=== PATIENT | female | born 1960 | race Caucasian/White ===

== ENCOUNTER → 2019-08-13 | Outpatient (REF) | payer MEDICARE, MEDICAID ==
[~2019-08-13] MED LIST: ACET250T2 PO; ALPR0.25 PO; AMBI10TA; AMBI10TA PO; ASCO500T PO; ASPI81CH49 PO; ASPI81TA26 PO; ATIV1TAB7 PO; ATOR1TAB21 PO; AVEL1TAB3 PO; BABY81CH; BENZ-52 PO; BUDE150T; CALCCHW12; CLOZ100T PO; CLOZ100T2 PO; CLOZ100T45; CLOZ200T; COGENTIN PO; COLA100C2; DEPA250T2 PO; DEPA500T2 PO; DIPH2.5T14 PO; DITR5TAB PO; DOCU100T8 PO; DOCU10CA PO; DRIS50003 PO; FLUP10TA PO; FLUP25VL IM; FLUT11IN INH; HALDOL PO; HALO5TA PO; HYDR-3363 PO; IPRA0.00 INH; KLON0.5T; LAMO100T PO; LEVA1TAB2 PO; LISI-542 PO; LOPR1TAB6 PO; MELO7.5S PO; META28PO PO; METF500T13 PO; METH-1022 PO; METH5TAB76 PO; METO1TAB7 PO; METO50TA7 PO; MINI1CAP PO; MIRA3350 PO; NAPR-885 PO; NATU400T PO; OXYB5TAB10 PO; PANT20TA2 PO; PANT40TA3 PO; PRAV40TA2 PO; PRAZ1CAP PO; PRAZ2CAP PO; PRIL20CA; PRIS100T PO; PROP10TAB; REGUPOW PO; SIMV40TA2; TRAZ100T; TRAZ1TAB10 PO; TYLE650T25 PO; VENL75CA2 PO; VITAMIN C PO; VITATAB21 PO; XANA0.25 PO; ZYPR15TA PO; [UNRECOGNIZED DRUG - CODE] TOP
[2019-08-13 12:53] LABS: HEMATOCRIT 37.1 % (36.0-47.0); HEMOGLOBIN 11.8 g/dl (12.0-15.5); LYMPH # 1.3 10^3/uL (1.5-5.0); LYMPH % 20.4 % (24.0-44.0); MEAN CORPUSCULAR HEMOGLOBIN 29.1 pg (27.0-33.0); MEAN CORPUSCULAR HGB CONC 31.8 g/dl (32.0-36.5); MEAN CORPUSCULAR VOLUME 91.6 fl (80.0-96.0); MONO # 0.4 10^3/uL (0.0-0.8); MONO % 6.7 % (0.0-5.0); NEUTROPHILS # 4.7 10^3/uL (1.5-8.5); NEUTROPHILS % 72.6 % (36.0-66.0); PLATELET COUNT, AUTOMATED 238 10^3/uL (150-450); RED BLOOD COUNT 4.05 10^6/uL (4.00-5.40); WHITE BLOOD COUNT 6.4 10^3/uL (4.0-10.0)
[2019-08-17 10:46] LABS: CLOZAPINE 1 276 ng/mL (350-650); CLOZAPINE 2 140 ng/mL (Not Estab.); CLOZAPINE 3 416 ng/mL (.)
== END ==
LOC: M LABDRAWC 12:00 → M LABDRAW1 12:00
PROVIDERS: ATTEND Registered Nurse
DX: F25.1 Schizoaffective disorder, depressive type (principal)

== ENCOUNTER → 2019-09-01 | Outpatient (REF) | payer MEDICARE, MEDICAID ==
[2019-09-01 12:56] LABS: HEMOGLOBIN 11.6 g/dl (12.0-15.5); LYMPH # 1.6 10^3/uL (1.5-5.0); LYMPH % 24.6 % (24.0-44.0); MEAN CORPUSCULAR HEMOGLOBIN 28.4 pg (27.0-33.0); MEAN CORPUSCULAR HGB CONC 31.4 g/dl (32.0-36.5); MEAN CORPUSCULAR VOLUME 90.7 fl (80.0-96.0); MONO # 0.5 10^3/uL (0.0-0.8); MONO % 8.5 % (0.0-5.0); NEUTROPHILS # 4.2 10^3/uL (1.5-8.5); NEUTROPHILS % 66.4 % (36.0-66.0); PLATELET COUNT, AUTOMATED 227 10^3/uL (150-450); RED BLOOD COUNT 4.08 10^6/uL (4.00-5.40); WHITE BLOOD COUNT 6.3 10^3/uL (4.0-10.0)
[2019-09-03 08:06] LABS: CLOZAPINE 1 452 ng/mL (350-650); CLOZAPINE 2 213 ng/mL (Not Estab.); CLOZAPINE 3 665 ng/mL (.)
== END ==
LOC: M LABDRAWC 11:38
PROVIDERS: ATTEND Registered Nurse
DX: F25.1 Schizoaffective disorder, depressive type (principal); Z51.81 Encounter for therapeutic drug level monitoring; Z13.9 Encounter for screening, unspecified

== ENCOUNTER → 2019-09-22 | Outpatient (REF) | payer MEDICARE, MEDICAID ==
[2019-09-22 19:13] LABS: HEMATOCRIT 37.5 % (36.0-47.0); LYMPH % 29.4 % (24.0-44.0); MEAN CORPUSCULAR VOLUME 90.6 fl (80.0-96.0); MONO # 0.5 10^3/uL (0.0-0.8); MONO % 7.5 % (0.0-5.0); NEUTROPHILS # 4.2 10^3/uL (1.5-8.5); NEUTROPHILS % 62.8 % (36.0-66.0); PLATELET COUNT, AUTOMATED 252 10^3/uL (150-450); RED BLOOD COUNT 4.14 10^6/uL (4.00-5.40); WHITE BLOOD COUNT 6.6 10^3/uL (4.0-10.0)
== END ==
LOC: M LABDRAWC 16:10
PROVIDERS: ATTEND Registered Nurse
DX: Z13.9 Encounter for screening, unspecified (principal); Z51.81 Encounter for therapeutic drug level monitoring; F25.1 Schizoaffective disorder, depressive type

== ENCOUNTER → 2019-10-07 | Outpatient (REF) | payer MEDICARE, MEDICAID ==
[~2019-10-07] MED LIST changes: -LAMO100T PO; +LAMO100T3 PO
[2019-10-07 12:34] LABS: HEMATOCRIT 37.8 % (36.0-47.0); HEMOGLOBIN 12.1 g/dl (12.0-15.5); LYMPH # 1.9 10^3/uL (1.5-5.0); LYMPH % 27.6 % (24.0-44.0); MEAN CORPUSCULAR HEMOGLOBIN 28.7 pg (27.0-33.0); MEAN CORPUSCULAR VOLUME 89.8 fl (80.0-96.0); MONO # 0.5 10^3/uL (0.0-0.8); MONO % 7.3 % (0.0-5.0); NEUTROPHILS # 4.4 10^3/uL (1.5-8.5); NEUTROPHILS % 64.8 % (36.0-66.0); PLATELET COUNT, AUTOMATED 233 10^3/uL (150-450); RED BLOOD COUNT 4.21 10^6/uL (4.00-5.40); WHITE BLOOD COUNT 6.9 10^3/uL (4.0-10.0)
[2019-10-09 10:36] LABS: CLOZAPINE 1 305 ng/mL (350-650); CLOZAPINE 2 153 ng/mL (Not Estab.); CLOZAPINE 3 458 ng/mL (.)
== END ==
LOC: M LABDRAWC 11:40
PROVIDERS: ATTEND Registered Nurse
DX: F25.1 Schizoaffective disorder, depressive type (principal)

== ENCOUNTER → 2019-10-21 | Outpatient (REF) | payer MEDICARE, MEDICAID ==
[2019-10-21 16:45] LABS: HEMATOCRIT 39.8 % (36.0-47.0); HEMOGLOBIN 12.6 g/dl (12.0-15.5); LYMPH # 1.7 10^3/uL (1.5-5.0); LYMPH % 25.9 % (24.0-44.0); MEAN CORPUSCULAR HEMOGLOBIN 28.4 pg (27.0-33.0); MEAN CORPUSCULAR HGB CONC 31.7 g/dl (32.0-36.5); MEAN CORPUSCULAR VOLUME 89.6 fl (80.0-96.0); MONO # 0.5 10^3/uL (0.0-0.8); MONO % 7.3 % (0.0-5.0); NEUTROPHILS # 4.4 10^3/uL (1.5-8.5); NEUTROPHILS % 66.6 % (36.0-66.0); PLATELET COUNT, AUTOMATED 232 10^3/uL (150-450); RED BLOOD COUNT 4.44 10^6/uL (4.00-5.40); WHITE BLOOD COUNT 6.6 10^3/uL (4.0-10.0)
== END ==
LOC: M LABDRAWC 16:06
PROVIDERS: ATTEND Registered Nurse
DX: F25.1 Schizoaffective disorder, depressive type (principal)

== ENCOUNTER 2019-10-24 14:31 | Emergency (ER) | payer MEDICARE, MEDICAID ==
[~2019-10-24] VITALS: Ht 165.1 cm; Wt 109.5 kg
[2019-10-24] MEDS ORDERED: DICL1GEL3 TOP (14:59)
[2019-10-24] MEDS ORDERED: LIDO1CRE2 TOP (14:59)
[2019-10-24] MEDS ORDERED: LACT10SO29 PO (14:59)
[2019-10-24] MEDS ORDERED: HALO5TA PO (15:10)
[2019-10-24] MEDS ORDERED: GABA-845 PO (15:10)
[2019-10-24] MEDS ORDERED: ACET1TAB55 PO (15:10)
[2019-10-24] MEDS ORDERED: ZOLO100T PO (15:26)
[2019-10-24] MEDS ORDERED: SYNT25TA PO (15:26)
[2019-10-24] MEDS ORDERED: ATIV1TAB10 PO (15:26)
[2019-10-24] MEDS ORDERED: ZOLP5TAB PO (15:26)
[2019-10-24] MEDS ORDERED: METF500T13 PO (15:26)
[2019-10-24] MEDS ORDERED: MELO15TA28 PO (15:26)
[2019-10-24] MEDS ORDERED: LISI-542 PO (15:26)
[2019-10-24] MEDS ORDERED: TRIH2TAB3 PO (15:26)
[2019-10-24] MEDS ORDERED: GABAPENTIN 400 MG CAP PO ONE (15:45)
[2019-10-24] MEDS ORDERED: NS 500 ML IV ONE (15:45)
[2019-10-24 16:30] VITALS: BP 179/81
[2019-10-24 16:38] LABS: BASO % 0.1 % (0.0-1.0); HEMATOCRIT 35.4 % (36.0-47.0); HEMOGLOBIN 11.6 g/dl (12.0-15.5); LYMPH % 20.5 % (24.0-44.0); MEAN CORPUSCULAR HEMOGLOBIN 28.5 pg (27.0-33.0); MEAN CORPUSCULAR HGB CONC 32.8 g/dl (32.0-36.5); MONO # 0.7 10^3/uL (0.0-0.8); NEUTROPHILS # 7.2 10^3/uL (1.5-8.5); NEUTROPHILS % 72.1 % (36.0-66.0); PLATELET COUNT, AUTOMATED 210 10^3/uL (150-450); RED BLOOD COUNT 4.07 10^6/uL (4.00-5.40); WHITE BLOOD COUNT 9.9 10^3/uL (4.0-10.0)
[2019-10-24 16:52] LABS: INR 0.93; PROTHROMBIN TIME 12.2 SECONDS (11.8-14.0)
[2019-10-24 16:53] LABS: PARTIAL THROMBOPLASTIN TIME 31.8 SECONDS (25.0-38.4)
[2019-10-24 17:12] LABS: ALBUMIN 3.4 GM/DL (3.2-5.2); ALT/SGPT 27 U/L (12-78); BILIRUBIN,DIRECT 0.1 MG/DL (0.0-0.2); BILIRUBIN,TOTAL 0.3 MG/DL (0.2-1.0); BLOOD UREA NITROGEN 27 MG/DL (7-18); CARBON DIOXIDE LEVEL 27 MEQ/L (21-32); CHLORIDE LEVEL 97 MEQ/L (98-107); CK-MB VALUE MASS 8.3 NG/ML (<3.6); CPK CREATINE PHOSPHOKINASE 293 U/L (26-192); CREATININE FOR GFR 0.91 MG/DL (0.55-1.30); GLOMERULAR FILTRATION RATE > 60.0 (>51); GLUCOSE, FASTING 77 MG/DL (70-100); MB/CK RELATIVE INDEX 2.83 (< OR =4); POTASSIUM SERUM 4.2 MEQ/L (3.5-5.1); SODIUM LEVEL 133 MEQ/L (136-145); TOTAL PROTEIN 6.5 GM/DL (6.4-8.2); TROPONIN I < 0.02 NG/ML (< 0.10)
--- NOTE | 2019-10-24 19:09 | ECGEPIP ---
[facility] - ED Test Date: 2019-10-24 Pat Name: JUAN KELSEY Department: Room: - Gender: Female Manager Customs: gibran : 1960 Requested By: AMANDA Linn Order Number: [id number] Reading MD: Louis Vora Measurements Intervals [place] Rate: 85 P: 56 TX: 152 QRS: 2 QRSD: 117 T: 30 QT: 369 QTc: 441 Interpretive Statements SINUS RHYTHM LOW QRS VOLTAGE IN PRECORDIAL LEADS INCOMPLETE RIGHT BUNDLE BRANCH BLOCK Nonspecific T wave abnormality Similar to tracing done 09-12-16 Electronically Signed on 10-24-2019 19:09:18 EST by Louis Vora
--- NOTE | 2019-10-25 10:48 | REP ---
REASON: Pain and swelling bilaterally. TECHNIQUE: Multiple ultrasonographic images of the deep venous structures of the bilateral thighs were obtained from the common femoral vein to the popliteal vein along with Doppler interrogation and color flow Doppler images. FINDINGS: There is no abnormal echogenic material seen within any of the visualized deep venous structures that would suggest acute thrombosis. Coaptation is unremarkable throughout. Doppler interrogation shows an expected response to respiratory variability and augmentation. The color flow images show what appears to be a normal vascular pattern throughout. IMPRESSION: There is no ultrasonographic evidence of deep venous thrombosis involving any of the visualized deep venous structures of the bilateral thighs, as described above. Electronically Signed by Juan Antonio Rodriguez DO 10/25/2019 11:45 A
--- NOTE | 2019-10-25 11:10 | REP ---
REASON FOR EXAM: Dizziness. COMPARISON: 11/25/2015. There has been no significant change from the prior exam. The ventricles and sulci are unchanged. There is no shift in the midline structures. There is no evidence of an acute intracranial hemorrhagic or nonhemorrhagic event. The deep white matter is unchanged. There is portions of the paranasal sinuses and mastoid air cells are unchanged and again seen to be within normal limits. IMPRESSION:No change from the prior exam. No evidence of acute disease. Electronically Signed by Juan Antonio Rodriguez DO 10/25/2019 11:46 A
--- NOTE | 2019-10-25 11:13 | REP ---
REASON: Dyspnea. COMPARISON: Multiple, the latest 09/15/2016. AP and lateral views were obtained. The technique utilized in obtaining the radiograph has magnified the cardiac silhouette and accentuated the interstitial markings. FINDINGS: The superior mediastinal structures are midline. The cardiac silhouette is unremarkable in size, shape, and position. The diaphragmatic surfaces of the lungs are regular, and the costophrenic angles are clear. The pulmonary brizuela are clear. The imaged osseous structures are intact. IMPRESSION: There is no acute cardiopulmonary disease. Electronically Signed by Juan Antonio Rodriguez DO 10/25/2019 11:46 A
== END 2019-10-24 18:25 | disposition home or self-care (01) ==
LOC: M ED 14:31 → EDBD 14:31 → M ED 18:25
DX: G89.29 Other chronic pain (principal); M79.604 Pain in right leg; M79.605 Pain in left leg; R42 Dizziness and giddiness; R41.82 Altered mental status, unspecified; R94.31 Abnormal electrocardiogram [ECG] [EKG]; K21.9 Gastro-esophageal reflux disease without esophagitis; I12.9 Hypertensive chronic kidney disease with stage 1 through stage 4 chronic kidney disease, or unspecified chronic kidney disease; E78.5 Hyperlipidemia, unspecified; N32.81 Overactive bladder; E55.9 Vitamin D deficiency, unspecified; E66.9 Obesity, unspecified; F20.9 Schizophrenia, unspecified; R56.9 Unspecified convulsions; Z88.0 Allergy status to penicillin; Z88.2 Allergy status to sulfonamides; Z88.8 Allergy status to other drugs, medicaments and biological substances; Z79.1 Long term (current) use of non-steroidal anti-inflammatories (NSAID); Z79.52 Long term (current) use of systemic steroids; Z79.82 Long term (current) use of aspirin; Z79.891 Long term (current) use of opiate analgesic; Z79.899 Other long term (current) drug therapy

== ENCOUNTER → 2019-11-05 | Outpatient (REF) | payer MEDICARE, MEDICAID ==
[~2019-11-05] MED LIST changes: +ACET1TAB55 PO; +ATIV1TAB10 PO; +DICL1GEL3 TOP; +GABA-845 PO; +LACT10SO29 PO; +LIDO1CRE2 TOP; +MELO15TA28 PO; +SYNT25TA PO; +TRIH2TAB3 PO; +ZOLO100T PO; +ZOLP5TAB PO
[2019-11-05 11:46] LABS: BASO % 0.1 % (0.0-1.0); HEMATOCRIT 39.4 % (36.0-47.0); HEMOGLOBIN 12.3 g/dl (12.0-15.5); LYMPH # 2.2 10^3/uL (1.5-5.0); LYMPH % 29.5 % (24.0-44.0); MEAN CORPUSCULAR HEMOGLOBIN 28.3 pg (27.0-33.0); MEAN CORPUSCULAR HGB CONC 31.2 g/dl (32.0-36.5); MEAN CORPUSCULAR VOLUME 90.8 fl (80.0-96.0); MONO # 0.6 10^3/uL (0.0-0.8); NEUTROPHILS # 4.6 10^3/uL (1.5-8.5); NEUTROPHILS % 61.7 % (36.0-66.0); PLATELET COUNT, AUTOMATED 235 10^3/uL (150-450); RED BLOOD COUNT 4.34 10^6/uL (4.00-5.40); WHITE BLOOD COUNT 7.5 10^3/uL (4.0-10.0)
[2019-11-09 08:19] LABS: CLOZAPINE 1 355 ng/mL (350-650); CLOZAPINE 2 166 ng/mL (Not Estab.); CLOZAPINE 3 521 ng/mL (.)
== END ==
LOC: M LABDRAWC 11:20
PROVIDERS: ATTEND Registered Nurse
DX: F25.1 Schizoaffective disorder, depressive type (principal); Z51.81 Encounter for therapeutic drug level monitoring; Z13.9 Encounter for screening, unspecified

== ENCOUNTER → 2019-11-23 | Outpatient (REF) | payer MEDICARE, MEDICAID ==
[~2019-11-23] MED LIST changes: -FLUP10TA PO; +FLUP10TA11 PO
[2019-11-23 12:34] LABS: CALCIUM LEVEL 9.6 MG/DL (8.5-10.1); CHOLESTEROL RISK RATIO 3.193 (<5); CREATININE FOR GFR 1.15 MG/DL (0.55-1.30); GLOMERULAR FILTRATION RATE 51.6 (>51); POTASSIUM SERUM 4.4 MEQ/L (3.5-5.1); TOTAL 25(OH) VITAMIN D 35.7 NG/ML (30.0-100.0)
== END ==
LOC: M LABDRAWC 11:15
PROVIDERS: ATTEND Registered Nurse Community Health
DX: Z13.21 Encounter for screening for nutritional disorder (principal); M79.605 Pain in left leg; M79.604 Pain in right leg; M85.861 Other specified disorders of bone density and structure, right lower leg; M85.862 Other specified disorders of bone density and structure, left lower leg; Z79.82 Long term (current) use of aspirin; Z79.899 Other long term (current) drug therapy

== ENCOUNTER → 2019-12-03 | Outpatient (REF) | payer MEDICARE, MEDICAID ==
[2019-12-03 12:28] LABS: HEMATOCRIT 39.7 % (36.0-47.0); HEMOGLOBIN 12.3 g/dl (12.0-15.5); LYMPH # 1.5 10^3/uL (1.5-5.0); LYMPH % 27.4 % (24.0-44.0); MEAN CORPUSCULAR HEMOGLOBIN 27.8 pg (27.0-33.0); MEAN CORPUSCULAR VOLUME 89.8 fl (80.0-96.0); MONO # 0.4 10^3/uL (0.0-0.8); MONO % 7.2 % (0.0-5.0); NEUTROPHILS # 3.5 10^3/uL (1.5-8.5); NEUTROPHILS % 65.2 % (36.0-66.0); PLATELET COUNT, AUTOMATED 208 10^3/uL (150-450); RED BLOOD COUNT 4.42 10^6/uL (4.00-5.40); WHITE BLOOD COUNT 5.4 10^3/uL (4.0-10.0)
[2019-12-07 10:06] LABS: CLOZAPINE 1 329 ng/mL (350-650); CLOZAPINE 2 211 ng/mL (Not Estab.); CLOZAPINE 3 540 ng/mL (.)
== END ==
LOC: M LABDRAWC 11:26
PROVIDERS: ATTEND Registered Nurse
DX: F25.1 Schizoaffective disorder, depressive type (principal)

== ENCOUNTER → 2019-12-04 | Outpatient (CLI) | payer MEDICARE, MEDICAID ==
--- NOTE | 2019-12-12 03:51 | ECWPNPC ---
PATIENT NAME: JUAN KELSEY : 1960 GENDER: FEMALE VISIT DATE: 12/04/2019 DISCHARGE DATE: 12/04/19 1443 VISIT LOCKED DATE TIME: PHYSICIAN: MARIO JEAN MD RESOURCE: MARIO JEAN MD REASON FOR APPOINTMENT 1. BACK/HIP/LEG HISTORY OF PRESENT ILLNESS PAIN SCREENING: PATIENT HAS A COMPLAINT OF ACUTE OR CHRONIC PAIN :YES 59 YEAR OLD FEMALE PATIENT WITH A HISTORY OF CHRONIC LOW BACK AND LEG PAIN. THE PATIENT DESCRIBES THE PAIN CONTINUOUS, ACHING, SORE, SHARP, STABBING, SHOOTING, AND DAILY WITH A PAIN SCORE OF 7-10/10 DEPENDING ON PHYSICAL ACTIVITY. THE PATIENT SAYS HER PAIN IS MAINLY STARTS IN HER KNEES AND RADIATES DOWN TO HER FEET, AND SHE HAS BEEN SUFFERING FROM THIS PAIN FOR MANY YEARS. THE PATIENT SAYS SHE OCCASIONALLY EXPERIENCES BACK PAIN WELL. PATIENT DENIES UNEXPLAINABLE WEIGHT LOSS, FEVER, CHILLS, NEW CHANGES ON HER URINARY OR BOWEL CONTROL. FALL RISK SCREENING: SCREENING :NO FALLS REPORTED IN THE LAST YEAR CURRENT MEDICATIONS TAKING GABAPENTIN 400 MG CAPSULE 2 CAPSULES ORALLY TID TAKING HALOPERIDOL 5 MG TABLET 1 TABLET ORALLY TWICE A DAY TAKING LACTULOSE 10 GM/15ML SOLUTION 15 ML ORALLY ONCE A DAY TAKING LEVOTHYROXINE SODIUM 25 MCG TABLET 1 TABLET IN THE MORNING ON AN EMPTY STOMACH ORALLY ONCE A DAY TAKING LISINOPRIL 5 MG TABLET 1 TABLET ORALLY ONCE A DAY TAKING ATIVAN 0.5 MG TABLET 1 TABLET NEEDED ORALLY BID TAKING MELOXICAM 15 MG TABLET 1 TABLET ORALLY ONCE A DAY TAKING METFORMIN HCL 500 MG TABLET 1 TABLET WITH A MEAL ORALLY ONCE A DAY TAKING OXYBUTYNIN CHLORIDE 5 MG TABLET 1 TABLET ORALLY DAILY TAKING SERTRALINE HCL 100 MG TABLET 2 TABLETS ORALLY ONCE A DAY TAKING TRIHEXYPHENIDYL HCL 2 MG TABLET 1 TABLET ORALLY BEFORE BEDTIME TAKING AMBIEN 5 MG TABLET 1 TABLET AT BEDTIME ORALLY ONCE A DAY TAKING COLACE 100 MG CAPSULE 2 CAPSULES ORALLY DAILY NEEDED TAKING CLOZARIL 25 MG TABLET 1 TABLET ORALLY ONCE A DAY TAKING CLOZARIL 100 MG TABLET 1 TABLET IN AM, 2 TABLETS AT BEDTIME ORALLY BID TAKING ACETAMINOPHEN 325 MG TABLET 1 TABLET NEEDED ORALLY BID TAKING CHOLECALCIFEROL 50 MCG (1999) CAPSULE 1 CAPSULE ORALLY ONCE A DAY TAKING ASPIRIN 81 81 MG TABLET DELAYED RELEASE 1 TABLET ORALLY ONCE A DAY TAKING ATORVASTATIN CALCIUM 10 MG TABLET 1 TABLET ORALLY BEFORE BEDTIME MEDICATION LIST REVIEWED AND RECONCILED WITH THE PATIENT PAST MEDICAL HISTORY DIABETES BORDERLINE HTN HIGH CHOLESTEROL KIDNEY PROBLEMS ANXIETY DEPRESSION PSYCHOSIS PARANOID SCHIZOPHRENIA THYROID DISORDER? GLAUCOMA ALLERGIES PENICILLIN (FOR ALLERGIES USE ONLY): RASH - ALLERGY SULFA (FOR ALLERGY USE ONLY): NAUSEA/VOMITING - ALLERGY LACTOSE: NAUSEA/VOMITING - ALLERGY MELLARIL: ALLERGY SURGICAL HISTORY LEFT KIDNEY SURGERY LEFT EAR SURGERY FAMILY HISTORY FATHER: MOTHER: 2 BROTHER(S) , 2 SISTER(S) . FAMILY HISTORY UNKNOWN. SOCIAL HISTORY GENERAL: TOBACCO USE ARE YOU A:FORMER SMOKER HOW LONG HAS IT BEEN SINCE YOU LAST SMOKED?> 10 YEARS OTHERS AT HOME: [facility] [facility] [employer] [facility] IN [place]. DIET: NO LACTOSE, REGULAR. LANGUAGE LANGUAGES SPOKEN:GEORGIAN RECREATIONAL DRUG USE DRUG USE?NO EXERCISE: WALKS, DAILY - WHEN WEATHER PERMITS. 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 NEEDED?NO PAIN CLINIC PFS, CLERGY, PUBLIC HEALTH REFERRALS HAS THE PATIENT BEEN EDUCATED REGARDING HIS/HER PLAN OF CARE?YES HAS THE PATIENT BEEN EDUCATED REGARDING PAIN, THE RISK FOR PAIN, THE IMPORTANCE OF EFFECTIVE PAIN MANAGEMENT, AND THE PAIN ASSESSMENT PROCESS?YES LATEX QUESTIONNAIRE LATEX ALLERGY : HAVE YOU EVER DEVELOPED ANY TYPE OF REACTION AFTER HANDLING LATEX PRODUCTS SUCH RUBBER GLOVES, CONDOMS, DIAPHRAGMS, BALLOONS, SOCKS, OR UNDERWEAR?NO LATEX ALLERGY : HAVE YOU EVER DEVELOPED ANY TYPE OF REACTION DURING OR AFTER DENTAL APPOINTMENT, VAGINAL/RECTAL EXAMINATION, SURGICAL PROCEDURE, OR ANY OTHER EXPOSURE?NO LATEX RISK : HAVE YOU EVER HAD ANY DIFFICULTY BREATHING OR HIVES AFTER EATING OR HANDLING ANY FRUITS, OR VEGETABLES; SUCH KIWI, BANANAS, STONE FRUITS, OR CHESTNUTSNO LATEX RISK : DO YOU HAVE A PREVIOUS PERSONAL HISTORY OF MORE THAN NINE SURGERIES, SPINA BIFIDA, OR REPEATED CATHERIZATIONS? NO LATEX RISK : ARE YOU FREQUENTLY EXPOSED TO LATEX PRODUCTS IN YOUR OCCUPATION?NO DATE ASKED : 12/03/2019 CAFFEINE CAFFEINE USE?YES SODA AND COFFEE ADVANCE DIRECTIVE ADVANCE DIRECTIVE DISCUSSED WITH PATIENT:YES 12/03/2019 PATIENT HAS NO HCP, STATED SHE WOULD LIKE TO LOOK INTO GETTING ONE. INFORMED PATIENT THAT SHE COULD GET THE INFORMATION FROM US AT HER APPOINTMENT AND BRING IT HOME TO LOOK OVER AND FILL OUT. ALSO INFORMED HER THAT WE COULD HELP HER WITH THE FORM HERE IF SHE WOULD LIKE. JS MARITAL STATUS: SINGLE. ALCOHOL SCREENING DID YOU HAVE A DRINK CONTAINING ALCOHOL IN THE PAST YEAR?NO POINTS0 INTERPRETATIONNEGATIVE OCCUPATION: UNEMPLOYED. PRE-SCREENING COMPLETED 12/03/2019 1400 JS - MISSING ONE MEDICATION ALLERGY, PATIENT UNSURE OF SPELLING OF MEDICATION & COULD NOT PULL UP UNDER ALLERGIES. VERIFIED WITH PATIENT 12/04/19 1323 BV. HOSPITALIZATION/MAJOR DIAGNOSTIC PROCEDURE MENTAL HEALTH - MULTIPLE BOWEL OBSTRUCTION 2019 SURGERY RELATED SLEEP APNEW TESTING REVIEW OF SYSTEMS REVIEWED BY: PROVIDER: MARIO JEAN MD . CONSTITUTIONAL: ANY CHANGE IN YOUR MEDICAL CONDITION? YES, PT CURRENTLY BEING TESTED BY PRIMARY FOR FIBROMYALGIA . CHILLS NO . FEVER NO . INFECTION: DO YOU HAVE NEW INFECTIONS? NO . DO YOU HAVE HISTORY OF MRSA? NO . MUSCULOSKELETAL: ANY NEW PATTERNS OF PAIN OR NUMBNESS? NO . SYTEMIC LUPUS NO . GASTROENTEROLOGY: ANY NEW CHANGE IN BOWEL CONTROL? NO . BARRETTS ESOPHAGUS NO . CIRRHOSIS NO . HEPATITIS NO . LIVER FAILURE NO . ACID REFLUX NO . UNEXPLAINED WEIGHT LOSS NO . GENITOURINARY: ANY NEW CHANGE IN BLADDER CONTROL? NO . IS THERE A CHANCE YOU COULD BE ? NO . HEMATOLOGY/LYMPH: DO YOU TAKE ANY BLOOD THINNERS? (FOR EXAMPLE- COUMADIN, PLAVIX, AGGRENOX, PLATEL, PRADAXA, OR XARELTO) NO . WHEN WAS YOUR LAST DOSE? DATE: TIME: . LOW PLATELET COUNT NO . SICKLE CELL DISEASE NO . VON WILLIEBRANDS NO . FACTOR V LEIDEN NO . THALLASEMIA NO . ANEMIA NO . EASY BRUISING NO . NEUROLOGY: HAVE YOU FALLEN IN THE PAST 12 MONTHS? NO . ANY NEW EXTREMITY NUMBNESS OR WEAKNESS? INCREASING PAIN AND WEAKNESS IN BILATERAL LEGS . HEAD INJURY NO . DEMENTIA NO . CEREBRAL PALSY NO . MULTIPLE SCLEROSIS NO . DIZZINESS NO . HEADACHE NO . STROKES NO . VERTIGO NO . CARDIOLOGY: DO YOU HAVE A PACEMAKER OR DEFIBRILLATOR? NO . ANGINA NO . HEART ATTACK NO . HEART SURGERY NO . CONGESTIVE HEART FAILURE/FLUID OVERLOAD NO . CHEST PAIN NO . HIGH BLOOD PRESSURE NO . IRREGULAR HEART BEAT NO . RESPIRATORY: HAVE YOU BEEN SICK IN THE PAST WEEK? NO . FEVER NO . FLU LIKE SYMPTOMS? NO . CPAP NO . BYPAP NO . ASTHMA NO . EMPHYSEMA NO . CHRONIC LUNG DISEASES NO . SHORTNESS OF BREATH ON EXERTION NO . COUGH NO . SNORING NO . INTEGUMENTARY: DO YOU HAVE ANY RASHES OR OPEN SORES? NO . ALLERGIC/IMMUNO: ARE YOU ALLERGIC TO IV DYE? NO . ANY NEW ALLERGIES? NO . PSYCHIATRIC: DO YOU HAVE THOUGHTS OF HURTING YOURSELF OR SOMEONE ELSE? NO . ARE YOU ABUSED, NEGLECTED, OR IN AN UNSAFE ENVIRONMENT? NO . ENDOCRINOLOGY: ARE YOU DIABETIC? YES, ON MEDICATION . THYROID DISORDER NO . OTHER: DO YOU NEED ANY PRESCRIPTIONS? NO . IF YES, PLEASE LIST: ____ . ANY NEW PROBLEMS WITH YOUR MEDICATIONS? NO . WHEN DID YOU LAST EAT? ____ . WHEN DID YOU LAST DRINK? ____ . WHAT DID YOU LAST DRINK? ____ . NAME OF PERSON DRIVING YOU HOME? ____ . DO YOU HAVE ANY OTHER QUESTIONS OR CONCERNS NO . VITAL SIGNS WT 248 LBS, HT 65.5 IN, BMI 40.64 INDEX, BP 168/89 MM HG, HR 78 /MIN, RR 18 /MIN, TEMP 98.8 F, OXYGEN SAT % 97%, SAFE IN ENV? (Y/N) YES, NA INITIALS 1340, REVIEWED BY: BV. EXAMINATION GENERAL EXAMINATION: PATIENT IS ALERT O X 3 AND COOPERATIVE. LUNGS CLEAR, TO AUSCULTATION. HEART: NO MURMURS OR GALLOPS; FACIAL CRANIAL NERVES ARE GROSSLY NORMAL. GOOD SYMMETRY OF FACIAL MUSCLE MOVEMENT. NORMAL VISUAL TREVIZO. ANTALGIC WALK. PATIENT SAYS SHE IS UNCOMFORTABLE WHILE WALKING AND THE PRESSURE IS OUT OF HER BACK ONCE SHE SITS AGAIN. PATIENT REPORTS TENDERNESS OVER AND BELOW BOTH KNEES. BOTH LEGS ARE WEAK, BUT THE RIGHT LEG IS WEAKER AT FLEXION. PATIENT REPORTS TINGLING OVER BOTH LOWER EXTREMITIES. MRI OF THE LUMBAR SPINE DONE ON 09/12/2016 SHOWS LUMBAR STENOSIS AT L4-L5. ASSESSMENTS OTHER CHRONIC PAIN - G89.29 (PRIMARY) LOW BACK PAIN - M54.5 SPINAL STENOSIS OF LUMBAR REGION, UNSPECIFIED WHETHER NEUROGENIC CLAUDICATION PRESENT - M48.061 HISTORY OF BORDERLINE DIABETES MELLITUS - Z87.898 R/O PERIPHERAL DIABETIC NEUROPATHY. TREATMENT OTHER CHRONIC PAIN [facility] MRI LUMBAR W/O CONTRAST (CPT [id number] CLINICAL NOTES: WE DISCUSSED SEVERAL ISSUES WITH MS. KELSEY'S PAIN MANAGEMENT CASE. THE PATIENT ASKED TO BE PRESCRIBED PAIN MEDICATION AND I EXPLAINED THE PROCESS OF OBTAINING AN AGREEMENT WITH HER PRIMARY CARE. THEREFORE, I WILL REQUEST FOR A DOCTOR TO DOCTOR AGREEMENT FROM THE PATIENT'S PRIMARY CARE PROVIDER IN ORDER TO CONSIDER PRESCRIBING THE PATIENT MEDICATIONS IN THE FUTURE TO HELP WITH HER PAIN. I WOULD LIKE TO REFER THE PATIENT TO NEUROLOGY TO CONSIDER AN EMG AND NERVE CONDUCTION STUDY. I WILL ALSO ORDER FOR A LUMBAR MRI TO BE DONE TO GAIN A BETTER UNDERSTANDING OF WHERE THE PATIENT'S PAIN IS ORIGINATING FROM. IF THE RESULTS SHOW THAT THE PATIENT'S PAIN IS DUE TO PERIPHERAL NEUROPATHY, INJECTIONS AT THE MOMENT ARE NOT INDICATED. IF THERE IS EVIDENCE OF SPINAL STENOSIS OR DISC DEGENERATION WITH BULGING DISC ON THE NEW MRI, THEN WE WILL CONSIDER A LUMBAR EPIDURAL FOR THE PATIENT. THE PATIENT WILL FOLLOW UP WITH THE NURSE PRACTITIONER IN SEVERAL WEEKS TO GO OVER THE MRI RESULTS AND DOCTOR AGREEMENT. INSTRUCTIONS WERE GIVEN, QUESTIONS WERE ANSWERED, PATIENT REPORTS UNDERSTANDING AND AGREES WITH THE PLAN. I, BARRINGTON LLOYD, DOCUMENTED THE ABOVE INFORMATION ACTING A SCRIBE FOR DR. JEAN. I HAVE REVIEWED THE ABOVE DOCUMENT, WRITTEN BY BARRINGTON DAVIS AND I VERIFY THAT IT IS ACCURATE. DEAR ISRAEL FRY, BIOMETRICS ANALYST: THANK YOU FOR YOUR KIND REFERRAL OF JUAN KELSEY. IF YOU WANT TO DISCUSS HER CASE WITH ME PLEASE CALL ME AT THE PAIN CENTER AT [phone]. SINCERELY, MARIO JEAN MD PAIN MEDICINE . LOW BACK PAIN [facility] MRI LUMBAR W/O CONTRAST (CPT [id number] PROCEDURE CODES FA211 ESTABILISHED PATIENT [facility] FACILITY CHARGE G8427 CURRENT MEDS W/DOSAGES DOCUMENTED G8730 PAIN ASSESS POS TOOL F/U PLAN DOC DISPOSITION & COMMUNICATION FOLLOW UP 2 WEEKS (REASON: F/UP BIOMETRICS ANALYST FOR MEDS, ORDERED L MRI, REFERRING FOR NCS, DR TO AGREE) ELECTRONICALLY SIGNED BY MARIO JEAN MD, ON 12/11/2019 AT 03:40 PM EST DISCLAIMER : THIS IS A VISIT SUMMARY EXTRACTED FROM THE [facility] CHART. IT IS NOT A COPY OF THE [facility] PROGRESS NOTE. SHAR
== END ==
LOC: M PAIN 13:00
PROVIDERS: ATTEND Anesthesiology
DX: G89.29 Other chronic pain (principal); M54.5 Low back pain; M48.061 Spinal stenosis, lumbar region without neurogenic claudication; Z87.898 Personal history of other specified conditions

== ENCOUNTER → 2019-12-10 | Outpatient (REF) | payer MEDICARE, MEDICAID ==
[2019-12-10 13:18] LABS: C REACTIVE PROTEIN QUANTITATIV 0.34 MG/DL (0.00-0.30); CALCIUM LEVEL 9.1 MG/DL (8.5-10.1); CHOLESTEROL RISK RATIO 3.126 (<5); CREATININE FOR GFR 1.08 MG/DL (0.55-1.30); GLOMERULAR FILTRATION RATE 55.5 (>51); POTASSIUM SERUM 4.4 MEQ/L (3.5-5.1)
[2019-12-10 13:38] LABS: TOTAL 25(OH) VITAMIN D 40.2 NG/ML (30.0-100.0)
== END ==
LOC: M LABDRAWC 11:11
PROVIDERS: ATTEND Registered Nurse Community Health
DX: M25.50 Pain in unspecified joint (principal); M79.605 Pain in left leg; M85.861 Other specified disorders of bone density and structure, right lower leg; M85.862 Other specified disorders of bone density and structure, left lower leg; Z79.899 Other long term (current) drug therapy

== ENCOUNTER → 2019-12-21 | Outpatient (CLI) | payer MEDICAID, MEDICARE ==
--- NOTE | 2019-12-21 11:14 | REPVR ---
PROCEDURE INFORMATION: Exam: MR Lumbar Spine Without Contrast. Exam date and time: 12/21/2019 9:09 AM Age: 59 years old Clinical indication: Low back pain; Additional info: Chronic pain, lbp TECHNIQUE: Imaging protocol: Multiplanar magnetic resonance images of the lumbar spine without intravenous contrast. COMPARISON: MRI-Spine, L.S. without con 09/13/2016 9:37 AM FINDINGS: Vertebrae: The lumbar vertebral bodies are normal in height , signal intensity and alignment.No acute fracture or dislocation is seen. Marrow: There is a normal proportion of hematopoietic bone marrow and fat for this patient's age.There is no evidence of abnormal bone marrow signal intensity to suggest contusion or infection. Spinal epidural space: There is no evidence of epidural masses or hemorrhage. Spinal cord: The conus medullaris is normal. The cauda equina nerve roots demonstrate no crowding or displacement. L1-L2: There is no significant degenerative disc herniation.The spinal canal and neural foramina are patent and without significant stenosis. L2-L3: There is no significant degenerative disc herniation.The spinal canal and neural foramina are patent and without significant stenosis. L3-L4: There is a mild diffuse posterior bulge causing mild effacement of the thecal sac. There is no significant spinal canal or foraminal stenosis. L4-L5: There is a mild diffuse posterior bulge causing mild effacement of the thecal sac. Moderate right foraminal protrusion with annular tear. Small left foraminal protrusion.The facet joints demonstrate marked degenerative narrowing and sclerosis.There is thickening of the ligamentum flavum.There is mild spinal canal narrowing, with an AP canal dimension of 10 mm.There is mild left foraminal stenosis.There is severe right foraminal stenosis. There is compression on the exiting nerve root. L5-S1: There is no significant degenerative disc herniation.The spinal canal and neural foramina are patent and without significant stenosis. Soft tissues: The prevertebral soft tissues appear normal. IMPRESSION: MRI of the lumbar spine reveals multilevel degenerative spondylitic changes and degenerative disc disease, most significant at L4-L5 level as described above. Electronically signed by: Dirk Telles On 12/21/2019 11:14:37 AM
== END ==
LOC: M RAD 07:33
PROVIDERS: ATTEND Anesthesiology
DX: M54.5 Low back pain (principal)

== ENCOUNTER → 2019-12-23 | Outpatient (CLI) | payer MEDICARE, MEDICAID ==
--- NOTE | 2020-01-12 03:23 | ECWPNPC ---
PATIENT NAME: JUAN KELSEY : 1960 GENDER: FEMALE VISIT DATE: 12/23/2019 DISCHARGE DATE: 12/23/19 1136 VISIT LOCKED DATE TIME: PHYSICIAN: CONRAD BONE RESOURCE: CONRAD BONE REASON FOR APPOINTMENT 1. BACK/HIP/LEG/MEDS/MRI RESULTS HISTORY OF PRESENT ILLNESS HISTORY OF PRESENT ILLNESS: JUAN IS A 59-YEAR-OLD FEMALE I AM SEEING FOR FOLLOW-UP AFTER INITIAL EVALUATION 1 MONTH AGO. MRI OF THE LS-SPINE THAT DR. JEAN ORDERED IS REVIEWED. SHOWING LUMBAR DEGENERATIVE CHANGES/SPONDYLITIC CHANGES AT L4-5. HAD NERVE CONDUCTION STUDY DONE WHICH IS PENDING FOR REVIEW. CHIEF COMPLAINT IS LOW BACK PAIN THAT RADIATES INTO HER LEGS BILATERALLY. RATING PAIN LEVEL A 10 OVER 10 VAS. STATES PAIN IS THERE AT REST WELL WITH ACTIVITY. DENIES NIGHTTIME AWAKENINGS DUE TO PAIN. ACCOMPANIED IN THE EXAM ROOM WITH MOTOR PATROL OPERATOR FROM [employer]. PAIN THE PATIENT DESCRIBES THE PAIN... FALL RISK SCREENING: SCREENING :NO FALLS REPORTED IN THE LAST YEAR CURRENT MEDICATIONS TAKING GABAPENTIN 400 MG CAPSULE 2 CAPSULES ORALLY TID TAKING HALOPERIDOL 5 MG TABLET 1 TABLET ORALLY TWICE A DAY TAKING LACTULOSE 10 GM/15ML SOLUTION 15 ML ORALLY ONCE A DAY TAKING LEVOTHYROXINE SODIUM 25 MCG TABLET 1 TABLET IN THE MORNING ON AN EMPTY STOMACH ORALLY ONCE A DAY TAKING LISINOPRIL 5 MG TABLET 1 TABLET ORALLY ONCE A DAY TAKING ATIVAN 0.5 MG TABLET 1 TABLET NEEDED ORALLY BID TAKING MELOXICAM 15 MG TABLET 1 TABLET ORALLY ONCE A DAY TAKING METFORMIN HCL 500 MG TABLET 1 TABLET WITH A MEAL ORALLY ONCE A DAY TAKING OXYBUTYNIN CHLORIDE 5 MG TABLET 1 TABLET ORALLY DAILY TAKING SERTRALINE HCL 100 MG TABLET 2 TABLETS ORALLY ONCE A DAY TAKING TRIHEXYPHENIDYL HCL 2 MG TABLET 1 TABLET ORALLY BEFORE BEDTIME TAKING AMBIEN 5 MG TABLET 1 TABLET AT BEDTIME ORALLY ONCE A DAY TAKING COLACE 100 MG CAPSULE 2 CAPSULES ORALLY DAILY NEEDED TAKING CLOZARIL 25 MG TABLET 1 TABLET ORALLY ONCE A DAY TAKING CLOZARIL 100 MG TABLET 1 TABLET IN AM, 2 TABLETS AT BEDTIME ORALLY BID TAKING ACETAMINOPHEN 325 MG TABLET 1 TABLET NEEDED ORALLY BID TAKING CHOLECALCIFEROL 50 MCG (1999 UT) CAPSULE 1 CAPSULE ORALLY ONCE A DAY TAKING ASPIRIN 81 81 MG TABLET DELAYED RELEASE 1 TABLET ORALLY ONCE A DAY TAKING ATORVASTATIN CALCIUM 10 MG TABLET 1 TABLET ORALLY BEFORE BEDTIME MEDICATION LIST REVIEWED AND RECONCILED WITH THE PATIENT PAST MEDICAL HISTORY DIABETES BORDERLINE HTN HIGH CHOLESTEROL KIDNEY PROBLEMS ANXIETY DEPRESSION PSYCHOSIS PARANOID SCHIZOPHRENIA THYROID DISORDER? GLAUCOMA ALLERGIES PENICILLIN (FOR ALLERGIES USE ONLY): RASH - ALLERGY SULFA (FOR ALLERGY USE ONLY): NAUSEA/VOMITING - ALLERGY LACTOSE: NAUSEA/VOMITING - ALLERGY MELLARIL: ALLERGY SURGICAL HISTORY LEFT KIDNEY SURGERY LEFT EAR SURGERY FAMILY HISTORY FATHER: MOTHER: 2 BROTHER(S) , 2 SISTER(S) . FAMILY HISTORY UNKNOWN. SOCIAL HISTORY GENERAL: TOBACCO USE ARE YOU A:FORMER SMOKER HOW LONG HAS IT BEEN SINCE YOU LAST SMOKED?> 10 YEARS OTHERS AT HOME: CUSTODIAL - [employer] [facility] [facility] IN [place]. DIET: NO LACTOSE, REGULAR. LANGUAGE LANGUAGES SPOKEN:PORTUGUESE RECREATIONAL DRUG USE DRUG USE?NO EXERCISE: WALKS, DAILY - WHEN WEATHER PERMITS. 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 NEEDED?NO PAIN CLINIC PFS, CLERGY, PUBLIC HEALTH REFERRALS HAS THE PATIENT BEEN EDUCATED REGARDING HIS/HER PLAN OF CARE?YES HAS THE PATIENT BEEN EDUCATED REGARDING PAIN, THE RISK FOR PAIN, THE IMPORTANCE OF EFFECTIVE PAIN MANAGEMENT, AND THE PAIN ASSESSMENT PROCESS?YES LATEX QUESTIONNAIRE LATEX ALLERGY : HAVE YOU EVER DEVELOPED ANY TYPE OF REACTION AFTER HANDLING LATEX PRODUCTS SUCH RUBBER GLOVES, CONDOMS, DIAPHRAGMS, BALLOONS, SOCKS, OR UNDERWEAR?NO LATEX ALLERGY : HAVE YOU EVER DEVELOPED ANY TYPE OF REACTION DURING OR AFTER DENTAL APPOINTMENT, VAGINAL/RECTAL EXAMINATION, SURGICAL PROCEDURE, OR ANY OTHER EXPOSURE?NO LATEX RISK : HAVE YOU EVER HAD ANY DIFFICULTY BREATHING OR HIVES AFTER EATING OR HANDLING ANY FRUITS, OR VEGETABLES; SUCH KIWI, BANANAS, STONE FRUITS, OR CHESTNUTSNO LATEX RISK : DO YOU HAVE A PREVIOUS PERSONAL HISTORY OF MORE THAN NINE SURGERIES, SPINA BIFIDA, OR REPEATED CATHERIZATIONS? NO LATEX RISK : ARE YOU FREQUENTLY EXPOSED TO LATEX PRODUCTS IN YOUR OCCUPATION?NO DATE ASKED : 12/03/2019 CAFFEINE CAFFEINE USE?YES SODA AND COFFEE ADVANCE DIRECTIVE ADVANCE DIRECTIVE DISCUSSED WITH PATIENT:YES 12/03/2019 PATIENT HAS NO HCP, STATED SHE WOULD LIKE TO LOOK INTO GETTING ONE. INFORMED PATIENT THAT SHE COULD GET THE INFORMATION FROM US AT HER APPOINTMENT AND BRING IT HOME TO LOOK OVER AND FILL OUT. ALSO INFORMED HER THAT WE COULD HELP HER WITH THE FORM HERE IF SHE WOULD LIKE. AJ MARITAL STATUS: SINGLE. ALCOHOL SCREENING DID YOU HAVE A DRINK CONTAINING ALCOHOL IN THE PAST YEAR?NO POINTS0 INTERPRETATIONNEGATIVE OCCUPATION: UNEMPLOYED. PRE-SCREENING COMPLETED 12/03/2019 1400 JS - MISSING ONE MEDICATION ALLERGY, PATIENT UNSURE OF SPELLING OF MEDICATION & COULD NOT PULL UP UNDER ALLERGIES. VERIFIED WITH PATIENT 12/04/19 1323 BVREVIEWED WITH PATIENT 12/23/2019 1014 JS. HOSPITALIZATION/MAJOR DIAGNOSTIC PROCEDURE MENTAL HEALTH - MULTIPLE BOWEL OBSTRUCTION 2019 SURGERY RELATED SLEEP APNEW TESTING REVIEW OF SYSTEMS REVIEWED BY: PROVIDER: CONRAD COSME . CONSTITUTIONAL: ANY CHANGE IN YOUR MEDICAL CONDITION? NO . CHILLS NO . FEVER NO . INFECTION: DO YOU HAVE NEW INFECTIONS? NO . DO YOU HAVE HISTORY OF MRSA? NO . MUSCULOSKELETAL: ANY NEW PATTERNS OF PAIN OR NUMBNESS? YES, STATES PAIN WORSENING . GASTROENTEROLOGY: ANY NEW CHANGE IN BOWEL CONTROL? NO . GENITOURINARY: ANY NEW CHANGE IN BLADDER CONTROL? YES, STATES URINARY URGENCY AND FREQUENCY . IS THERE A CHANCE YOU COULD BE ? NO . HEMATOLOGY/LYMPH: DO YOU TAKE ANY BLOOD THINNERS? (FOR EXAMPLE- COUMADIN, PLAVIX, AGGRENOX, PLATEL, PRADAXA, OR XARELTO) NO - DOES TAKE ASPIRIN . WHEN WAS YOUR LAST DOSE? DATE: TIME: . NEUROLOGY: HAVE YOU FALLEN IN THE PAST 12 MONTHS? NO . ANY NEW EXTREMITY NUMBNESS OR WEAKNESS? YES, WEAKNESS TO BILATERAL LEGS . CARDIOLOGY: DO YOU HAVE A PACEMAKER OR DEFIBRILLATOR? NO . RESPIRATORY: HAVE YOU BEEN SICK IN THE PAST WEEK? NO . FEVER NO . FLU LIKE SYMPTOMS? NO . COUGH NO . INTEGUMENTARY: DO YOU HAVE ANY RASHES OR OPEN SORES? NO . ALLERGIC/IMMUNO: ARE YOU ALLERGIC TO IV DYE? NO . ANY NEW ALLERGIES? NO . PSYCHIATRIC: DO YOU HAVE THOUGHTS OF HURTING YOURSELF OR SOMEONE ELSE? NO . ARE YOU ABUSED, NEGLECTED, OR IN AN UNSAFE ENVIRONMENT? NO . ENDOCRINOLOGY: ARE YOU DIABETIC? YES . OTHER: DO YOU NEED ANY PRESCRIPTIONS? YES . IF YES, PLEASE LIST: ____WOULD LIKE SOMETHING FOR PAIN . ANY NEW PROBLEMS WITH YOUR MEDICATIONS? NO . WHEN DID YOU LAST EAT? ____ . WHEN DID YOU LAST DRINK? ____ . WHAT DID YOU LAST DRINK? ____ . NAME OF PERSON DRIVING YOU HOME? ____ . DO YOU HAVE ANY OTHER QUESTIONS OR CONCERNS YES, WAS HOPING TO GO OVER RESULTS OF TESTS . VITAL SIGNS WT 249.8 LBS, HT 65.5 IN, BMI 40.93 INDEX, BP 174/80 MM HG, HR 89 /MIN, RR 18 /MIN, TEMP 97.6 F, OXYGEN SAT % 100%, SAFE IN ENV? (Y/N) YES, NA INITIALS AW 1006, REVIEWED BY: BREE. EXAMINATION GENERAL EXAMINATION: GENERAL AWAKE,ALERT ,PLEAASANT . PSYCH AFFECT NORMAL . LUNGS: LUNG TREVIZO ARE CLEAR TO AUSCULTATION BILATERALLY. GOOD MOVEMENT OF AIR . HEART: S1, S2 IN A REGULAR RATE AND RHYTHM. NO SIGNIFICANT MURMURS, RUBS OR GALLOPS NOTED . LUMBAR:PALPATION:TENDER OVER BILAT. L4/5-L5/S1 LUMBAR FACETS WITH FACET LOADING.. DIAGNOSTIC TESTS REVIEWED MRI L/S SPINE-12/21/2019. 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 PREVENTIVE MEDICINE PAIN CLINIC TEACHING: PROCEDURE TEACHING REVIEWED INFORMATION ON THERAPEUTIC FACET BLOCK PROCEDURE WITH PATIENT. ALSO REVIEWED PRE-PROCEDURE INSTRUCTIONS. PATIENT VERBALIZED AN UNDERSTANDING. PEEWEE SILVA 12/23/2019 11:06:06 AM > . PROCEDURE CODES FA211 ESTABILISHED PATIENT [facility] CHARGE DISPOSITION & COMMUNICATION FOLLOW UP POST/SIGN RELEASE JENNY AVELINO PAIN MANAGEMENT (REASON: LFBT L4/5-L5/S1 BILAT) ELECTRONICALLY SIGNED BY BA MONTESINOS ON 01/11/2020 AT 09:39 AM EDT DISCLAIMER : THIS IS A VISIT SUMMARY EXTRACTED FROM THE [employer] CHART. IT IS NOT A COPY OF THE [employer] PROGRESS NOTE. SHAR
== END ==
LOC: M PAIN 10:15
PROVIDERS: ATTEND Nurse Practitioner Family
DX: M51.36 Other intervertebral disc degeneration, lumbar region (principal); M47.27 Other spondylosis with radiculopathy, lumbosacral region
CPT/HCPCS: 36415; 80159; 85027; G0463

== ENCOUNTER → 2019-12-23 | Outpatient (REF) | payer MEDICARE, MEDICAID ==
[2019-12-23 12:28] LABS: HEMATOCRIT 38.4 % (36.0-47.0); HEMOGLOBIN 12.3 g/dl (12.0-15.5); LYMPH # 1.4 10^3/uL (1.5-5.0); LYMPH % 26.5 % (24.0-44.0); MEAN CORPUSCULAR HEMOGLOBIN 28.6 pg (27.0-33.0); MEAN CORPUSCULAR VOLUME 89.3 fl (80.0-96.0); MONO # 0.4 10^3/uL (0.0-0.8); MONO % 7.2 % (0.0-5.0); NEUTROPHILS # 3.5 10^3/uL (1.5-8.5); NEUTROPHILS % 65.9 % (36.0-66.0); PLATELET COUNT, AUTOMATED 211 10^3/uL (150-450); WHITE BLOOD COUNT 5.3 10^3/uL (4.0-10.0)
[2019-12-25 08:06] LABS: CLOZAPINE 1 557 ng/mL (350-650); CLOZAPINE 2 215 ng/mL (Not Estab.); CLOZAPINE 3 772 ng/mL (.)
== END ==
LOC: M LABDRAWC 11:19
PROVIDERS: ATTEND Registered Nurse
DX: F25.1 Schizoaffective disorder, depressive type (principal)

== ENCOUNTER → 2020-01-14 | Outpatient (REF) | payer MEDICARE, MEDICAID ==
[2020-01-14 17:04] LABS: BASO % 0.2 % (0.0-1.0); HEMATOCRIT 39.9 % (36.0-47.0); HEMOGLOBIN 12.8 g/dl (12.0-15.5); LYMPH # 1.9 10^3/uL (1.5-5.0); LYMPH % 30.6 % (24.0-44.0); MEAN CORPUSCULAR HGB CONC 32.1 g/dl (32.0-36.5); MEAN CORPUSCULAR VOLUME 90.3 fl (80.0-96.0); MONO # 0.4 10^3/uL (0.0-0.8); NEUTROPHILS # 3.9 10^3/uL (1.5-8.5); NEUTROPHILS % 61.9 % (36.0-66.0); PLATELET COUNT, AUTOMATED 231 10^3/uL (150-450); RED BLOOD COUNT 4.42 10^6/uL (4.00-5.40); WHITE BLOOD COUNT 6.3 10^3/uL (4.0-10.0)
== END ==
LOC: M LABDRAWC 15:58
PROVIDERS: ATTEND Registered Nurse
DX: F25.1 Schizoaffective disorder, depressive type (principal)

== ENCOUNTER → 2020-01-27 | Outpatient (CLI) | payer MEDICARE, MEDICAID ==
[~2020-01-27] MED LIST changes: +BUPIVACAINE HCL 0.25% 30ML VIAL As Ordered ONE; +ISOVUE-M 300 61% 15ML VIAL (Q9967) As Ordered ONE; +LIDOCAINE 1% SDV INJ 30 ML VIAL As Ordered ONE; +NORCO, ANEXSIA 5/325MG TABLET (HYDROcodone/ACETAMINOPHEN) As Ordered ONE; +TRIAMCINOLONE ACETONIDE SUSP 40 MG/ML VIAL (J3301) As Ordered ONE; +diazePAM 2 MG TAB As Ordered ONE
--- NOTE | 2020-01-27 12:23 | REP ---
Partial lumbar spine series: Eight views . History: Injection procedure for pain. 17 seconds of fluoroscopy time is reported. Findings: A sequence of eight fluoroscopically obtained last image hold procedural spot radiographs of the lumbar spine document needle position and contrast injection associated with injection procedure. Electronically Signed by Tom Ying MD 01/27/2020 12:14 P
--- NOTE | 2020-02-10 03:14 | ECWPNPC ---
PATIENT NAME: JUAN KELSEY : 1960 GENDER: FEMALE VISIT DATE: 01/27/2020 DISCHARGE DATE: 01/27/20 1231 VISIT LOCKED DATE TIME: PHYSICIAN: MARIO JEAN MD RESOURCE: MARIO JEAN MD REASON FOR APPOINTMENT 1. LFBT L4/5-L5/S1 BILAT HISTORY OF PRESENT ILLNESS HISTORY OF PRESENT ILLNESS: PAIN THE PATIENT DESCRIBES THE PAIN... FALL RISK SCREENING: SCREENING :NO FALLS REPORTED IN THE LAST YEAR CURRENT MEDICATIONS TAKING GABAPENTIN 400 MG CAPSULE 2 CAPSULES ORALLY TID, NOTES: 01/27/20 AM TAKING HALOPERIDOL 5 MG TABLET 1 TABLET ORALLY TWICE A DAY, NOTES: 01/27/20 TAKING LACTULOSE 10 GM/15ML SOLUTION 15 ML ORALLY ONCE A DAY, NOTES: 01/26/20 TAKING LEVOTHYROXINE SODIUM 25 MCG TABLET 1 TABLET IN THE MORNING ON AN EMPTY STOMACH ORALLY ONCE A DAY, NOTES: 01/27/20 AM TAKING LISINOPRIL 5 MG TABLET 1 TABLET ORALLY ONCE A DAY, NOTES: 01/27/20 AM TAKING ATIVAN 0.5 MG TABLET 1 TABLET NEEDED ORALLY BID, NOTES: 01/27/20 TAKING MELOXICAM 15 MG TABLET 1 TABLET ORALLY ONCE A DAY, NOTES: 01/27/20 AM TAKING METFORMIN HCL 500 MG TABLET 1 TABLET WITH A MEAL ORALLY ONCE A DAY, NOTES: 01/26/20 TAKING OXYBUTYNIN CHLORIDE 5 MG TABLET 1 TABLET ORALLY DAILY, NOTES: 01/27/20 AM TAKING SERTRALINE HCL 100 MG TABLET 2 TABLETS ORALLY ONCE A DAY, NOTES: 01/26/30 AM TAKING TRIHEXYPHENIDYL HCL 2 MG TABLET 1 TABLET ORALLY BEFORE BEDTIME, NOTES: 01/26/30 AM TAKING AMBIEN 5 MG TABLET 1 TABLET AT BEDTIME ORALLY ONCE A DAY, NOTES: 01/26/20 TAKING COLACE 100 MG CAPSULE 2 CAPSULES ORALLY DAILY NEEDED, NOTES: 01/26/20 TAKING CLOZARIL 25 MG TABLET 1 TABLET ORALLY ONCE A DAY, NOTES: 01/27/20 AM TAKING CLOZARIL 100 MG TABLET 1 TABLET IN AM, 2 TABLETS AT BEDTIME ORALLY BID, NOTES: 01/27/20 AM TAKING ACETAMINOPHEN 325 MG TABLET 1 TABLET NEEDED ORALLY BID, NOTES: 01/27/20 AM TAKING CHOLECALCIFEROL 50 MCG (1999 UT) CAPSULE 1 CAPSULE ORALLY ONCE A DAY, NOTES: 01/27/20 AM TAKING ASPIRIN 81 81 MG TABLET DELAYED RELEASE 1 TABLET ORALLY ONCE A DAY, NOTES: 01/27/20 AM TAKING ATORVASTATIN CALCIUM 10 MG TABLET 1 TABLET ORALLY BEFORE BEDTIME, NOTES: 01/26/20 MEDICATION LIST REVIEWED AND RECONCILED WITH THE PATIENT PAST MEDICAL HISTORY DIABETES BORDERLINE HTN HIGH CHOLESTEROL KIDNEY PROBLEMS ANXIETY DEPRESSION PSYCHOSIS PARANOID SCHIZOPHRENIA THYROID DISORDER? GLAUCOMA ALLERGIES PENICILLIN (FOR ALLERGIES USE ONLY): RASH - ALLERGY SULFA (FOR ALLERGY USE ONLY): NAUSEA/VOMITING - ALLERGY LACTOSE: NAUSEA/VOMITING - ALLERGY MELLARIL: ALLERGY SURGICAL HISTORY LEFT KIDNEY SURGERY LEFT EAR SURGERY FAMILY HISTORY FATHER: MOTHER: 2 BROTHER(S) , 2 SISTER(S) . FAMILY HISTORY UNKNOWN. SOCIAL HISTORY GENERAL: TOBACCO USE ARE YOU A:FORMER SMOKER HOW LONG HAS IT BEEN SINCE YOU LAST SMOKED?> 10 YEARS OTHERS AT HOME: CARE HOME - [employer] IN [place]. DIET: NO LACTOSE, REGULAR. LANGUAGE LANGUAGES SPOKEN:URDU NEW PATIENT PAIN DIARY PATIENT DESCRIBES PAIN :ACHING, HAVE IT ALL THE TIME, IT COMES AND GOES, STABBING, SHOOTING FROM 0-10, WHAT LEVEL IS YOUR PAIN TODAY?10 PRECIPITATING FACTORS NOT SURE ALLEVIATING FACTORS NO IMPACT ON FUNCTION YES RECREATIONAL DRUG USE DRUG USE?NO EXERCISE: WALKS, DAILY - WHEN WEATHER PERMITS. 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 DITCHING NEEDED?NO PAIN CLINIC PFS, CLERGY, PUBLIC HEALTH REFERRALS HAS THE PATIENT BEEN EDUCATED REGARDING HIS/HER PLAN OF CARE?YES HAS THE PATIENT BEEN EDUCATED REGARDING PAIN, THE RISK FOR PAIN, THE IMPORTANCE OF EFFECTIVE PAIN MANAGEMENT, AND THE PAIN ASSESSMENT PROCESS?YES LATEX QUESTIONNAIRE LATEX ALLERGY : HAVE YOU EVER DEVELOPED ANY TYPE OF REACTION AFTER HANDLING LATEX PRODUCTS SUCH RUBBER GLOVES, CONDOMS, DIAPHRAGMS, BALLOONS, SOCKS, OR UNDERWEAR?NO LATEX ALLERGY : HAVE YOU EVER DEVELOPED ANY TYPE OF REACTION DURING OR AFTER DENTAL APPOINTMENT, VAGINAL/RECTAL EXAMINATION, SURGICAL PROCEDURE, OR ANY OTHER EXPOSURE?NO DATE ASKED : 12/03/2019 LATEX RISK : HAVE YOU EVER HAD ANY DIFFICULTY BREATHING OR HIVES AFTER EATING OR HANDLING ANY FRUITS, OR VEGETABLES; SUCH KIWI, BANANAS, STONE FRUITS, OR CHESTNUTSNO LATEX RISK : DO YOU HAVE A PREVIOUS PERSONAL HISTORY OF MORE THAN NINE SURGERIES, SPINA BIFIDA, OR REPEATED CATHERIZATIONS? NO LATEX RISK : ARE YOU FREQUENTLY EXPOSED TO LATEX PRODUCTS IN YOUR OCCUPATION?NO CAFFEINE CAFFEINE USE?YES SODA AND COFFEE ADVANCE DIRECTIVE ADVANCE DIRECTIVE DISCUSSED WITH PATIENT:YES PATIENT HAS NO HCP, STATED SHE WOULD LIKE TO LOOK INTO GETTING ONE. INFORMED PATIENT THAT SHE COULD GET THE INFORMATION FROM US AT HER APPOINTMENT AND BRING IT HOME TO LOOK OVER AND FILL OUT. ALSO INFORMED HER THAT WE COULD HELP HER WITH THE FORM HERE IF SHE WOULD LIKE. MARITAL STATUS: SINGLE. ALCOHOL SCREENING DID YOU HAVE A DRINK CONTAINING ALCOHOL IN THE PAST YEAR?NO POINTS0 INTERPRETATIONNEGATIVE OCCUPATION: UNEMPLOYED. PRE-SCREENING COMPLETED 12/03/2019 1400 JS - MISSING ONE MEDICATION ALLERGY, PATIENT UNSURE OF SPELLING OF MEDICATION & COULD NOT PULL UP UNDER ALLERGIES. VERIFIED WITH PATIENT 12/04/19 1323 BVREVIEWED WITH PATIENT 12/23/2019 1014 JS. HOSPITALIZATION/MAJOR DIAGNOSTIC PROCEDURE MENTAL HEALTH - MULTIPLE BOWEL OBSTRUCTION 2019 SURGERY RELATED SLEEP APNEW TESTING REVIEW OF SYSTEMS REVIEWED BY: PROVIDER: . CONSTITUTIONAL: ANY CHANGE IN YOUR MEDICAL CONDITION? NO . CHILLS NO . FEVER NO . INFECTION: DO YOU HAVE NEW INFECTIONS? NO . DO YOU HAVE HISTORY OF MRSA? NO . MUSCULOSKELETAL: ANY NEW PATTERNS OF PAIN OR NUMBNESS? NO . GASTROENTEROLOGY: ANY NEW CHANGE IN BOWEL CONTROL? YES, CONSTIPATED SOMETIMES . GENITOURINARY: ANY NEW CHANGE IN BLADDER CONTROL? NO . IS THERE A CHANCE YOU COULD BE ? NO . HEMATOLOGY/LYMPH: DO YOU TAKE ANY BLOOD THINNERS? (FOR EXAMPLE- COUMADIN, PLAVIX, AGGRENOX, PLATEL, PRADAXA, OR XARELTO) NO . WHEN WAS YOUR LAST DOSE? DATE: TIME: . NEUROLOGY: HAVE YOU FALLEN IN THE PAST 12 MONTHS? NO . ANY NEW EXTREMITY NUMBNESS OR WEAKNESS? NO . CARDIOLOGY: DO YOU HAVE A PACEMAKER OR DEFIBRILLATOR? NO . RESPIRATORY: HAVE YOU BEEN SICK IN THE PAST WEEK? NO . FEVER NO . FLU LIKE SYMPTOMS? NO . COUGH NO . INTEGUMENTARY: DO YOU HAVE ANY RASHES OR OPEN SORES? YES, SORES TO RIGHT WRIST FROM [place], PT TOOK OFF [place] . ALLERGIC/IMMUNO: ARE YOU ALLERGIC TO IV DYE? NO . ANY NEW ALLERGIES? NO . PSYCHIATRIC: DO YOU HAVE THOUGHTS OF HURTING YOURSELF OR SOMEONE ELSE? NO . ARE YOU ABUSED, NEGLECTED, OR IN AN UNSAFE ENVIRONMENT? NO . ENDOCRINOLOGY: ARE YOU DIABETIC? YES . OTHER: DO YOU NEED ANY PRESCRIPTIONS? NO . IF YES, PLEASE LIST: ____ . ANY NEW PROBLEMS WITH YOUR MEDICATIONS? NO . WHEN DID YOU LAST EAT? 01/26/20 1700 . WHEN DID YOU LAST DRINK? 01/27/20 0600 . WHAT DID YOU LAST DRINK? WATER . NAME OF PERSON DRIVING YOU HOME? STAFF FROM [facility] . DO YOU HAVE ANY OTHER QUESTIONS OR CONCERNS NO . VITAL SIGNS WT 251 LBS, HT 65.5 IN, BMI 41.13 INDEX, BP 131/70 MM HG, HR 92 /MIN, RR 18 /MIN, TEMP 96.7 F, OXYGEN SAT % 100%, SAFE IN ENV? (Y/N) Y, NA INITIALS AW 0957, REVIEWED BY: EM. ASSESSMENTS SPONDYLOSIS WITHOUT MYELOPATHY OR RADICULOPATHY, LUMBAR REGION - M47.816 (PRIMARY) SPONDYLOSIS WITHOUT MYELOPATHY OR RADICULOPATHY, LUMBOSACRAL REGION - M47.817 PROCEDURES PN LUMBAR FACET BLOCK THERAPEUTIC PRE PROCEDURE DIAGNOSIS LUMBAR SPONDYLOSIS, LUMBOSACRAL SPONDYLOSIS POST PROCEDURE DIAGNOSIS LUMBAR SPONDYLOSIS, LUMBOSACRAL SPONDYLOSIS PROCEDURE BILATERAL L4-L5 AND L5-S1 LUMBAR FACET THERAPEUTIC BLOCK SURGEON DR. MARIO JEAN BAR WELDER NONE ANESTHESIA LOCAL PRE PROCEDURE NOTE THE PATIENT HAS A HISTORY OF CHRONIC LOW BACK PAIN. I EVALUATED THE PATIENT AND REVIEWED THE CHART. I WENT OVER THE RISKS, ALTERNATIVES, AND BENEFITS ASSOCIATED WITH THIS PROCEDURE. THE PATIENT WOULD LIKE TO PROCEED AND GIVES CONSENT TO PERFORM THE PROCEDURE. THE PATIENT DENIES UNEXPLAINABLE WEIGHT LOSS, FEVER, CHILLS, OR NEW CHANGES IN URINARY OR BOWEL CONTROL DESCRIPTION OF PROCEDURE THE PATIENT WAS BROUGHT TO THE PROCEDURE ROOM AND PLACED IN THE PRONE POSITION. THE LUMBOSACRAL AREA WAS CLEANED WITH CHLORAPREP SOLUTION AND DRAPED ASEPTICALLY. THE PROCEDURE WAS DONE UNDER STERILE CONDITIONS. I CHECKED LATERALITY AND THE LEVEL WHERE THE PROCEDURE WAS GOING TO BE PERFORMED WITH THE PATIENT AND THE SUPPORTING STAFF AT THE MOMENT OF THE TIME OUT IN THE PROCEDURE ROOM. UNDER FLUOROSCOPIC GUIDANCE, THE TARGET POINT WAS SELECTED AT THE RIGHT AND LEFT L4-L5 AND RIGHT AND LEFT L5-S1 FACET JOINTS. TARGET POINT WAS SELECTED AFTER LATERAL ROTATION AND TILT OF THE MAGNIFIER OF THE C-ARM. LIDOCAINE 0.5% WAS USED TO NUMB THE SKIN AND THE SUBCUTANEOUS TISSUE BELOW IT. SPINAL NEEDLES, 22-GAUGE, WERE ADVANCED UNDER FLUOROSCOPIC GUIDANCE AND FOLLOWING PATIENT FEEDBACK UNTIL THE TARGETS WERE TOUCHED. THE POSITION OF THE NEEDLES WAS VERIFIED WITH AP AND LATERAL VIEWS. AFTER PROPER POSITION OF THE NEEDLES WAS ACHIEVED, ISOVUE-M DYE 30% 0.1 ML WAS INJECTED SHOWING ADEQUATE SPREAD OF THE DYE. THEN A SOLUTION OF 1.9 ML OF BUPIVACAINE 0.125% OF KENALOG 10 MG WAS INJECTED AT EACH SITE. THERE WAS NO EVIDENCE OF BLOOD, PARESTHESIA OR CEREBROSPINAL FLUID DURING THE PROCEDURE. THE PATIENT WAS SENT TO THE RECOVERY ROOM. THE PATIENT WAS MOVING THE EXTREMITIES AND DOING WELL. THERE WAS NO COMPLICATION DURING THE PROCEDURE. FLUOROSCOPY TIME WAS 17 SECONDS POST PROCEDURE NOTE THE PATIENT WILL BE SEEN IN A FOLLOW UP IN THE NEXT FEW WEEKS. I AM LOOKING FOR LONG LASTING PAIN RELIEF FOR THE PATIENT WITH THIS INTERVENTION. DEPENDING ON THIS BLOCK'S RESULTS, I MAY CONSIDER PERFORMING A LUMBAR EPIDURAL STEROID INJECTION FOR THE PATIENT IN THE FUTURE. INSTRUCTIONS WERE GIVEN, QUESTIONS WERE ANSWERED, AND THE PATIENT EXPRESSED UNDERSTANDING AND AGREES WITH THE PLAN. I, BARRINGTON LLOYD, DOCUMENTED THE ABOVE INFORMATION ACTING A SCRIBE FOR DR. JEAN. I HAVE REVIEWED THE ABOVE DOCUMENT, WRITTEN BY BARRINGTON DAVIS AND I VERIFY THAT IT IS ACCURATE. DIAGNOSTIC IMAGING [facility] [facility] FACET BLOCK (PAIN)[id number] PROCEDURE CODES 77736 INJ PARAVERT F JNT L/S 1 LEV, MODIFIERS: 50 [id number] INJ PARAVERT F JNT L/S 2 LEV, MODIFIERS: 50 [id number] RADXPS IN END [id number] PXD DISPOSITION & COMMUNICATION FOLLOW UP 2 WEEKS (REASON: F/UP WITH TOOTH INSPECTOR (SCHEDULED FOR 02/09 ALREADY)) ELECTRONICALLY SIGNED BY MARIO JEAN MD, MD ON 02/09/2020 AT 04:28 PM EDT DISCLAIMER : THIS IS A VISIT SUMMARY EXTRACTED FROM THE [employer] CHART. IT IS NOT A COPY OF THE [employer] PROGRESS NOTE. MTDD
== END ==
LOC: M PAIN 09:45
PROVIDERS: ATTEND Anesthesiology
DX: M47.816 Spondylosis without myelopathy or radiculopathy, lumbar region (principal); M47.817 Spondylosis without myelopathy or radiculopathy, lumbosacral region; E11.9 Type 2 diabetes mellitus without complications; I10 Essential (primary) hypertension; E07.9 Disorder of thyroid, unspecified; Z79.82 Long term (current) use of aspirin; Z79.84 Long term (current) use of oral hypoglycemic drugs; Z79.899 Other long term (current) drug therapy; Z88.0 Allergy status to penicillin; Z88.2 Allergy status to sulfonamides; Z88.8 Allergy status to other drugs, medicaments and biological substances; Z91.011 Allergy to milk products; Z87.891 Personal history of nicotine dependence
CPT/HCPCS: 64493; 64494; J3301; Q9967

== ENCOUNTER → 2020-02-10 | Outpatient (CLI) | payer MEDICARE, MEDICAID ==
[~2020-02-10] MED LIST changes: -BUPIVACAINE HCL 0.25% 30ML VIAL As Ordered ONE; -ISOVUE-M 300 61% 15ML VIAL (Q9967) As Ordered ONE; -LIDOCAINE 1% SDV INJ 30 ML VIAL As Ordered ONE; -NORCO, ANEXSIA 5/325MG TABLET (HYDROcodone/ACETAMINOPHEN) As Ordered ONE; -TRIAMCINOLONE ACETONIDE SUSP 40 MG/ML VIAL (J3301) As Ordered ONE; -diazePAM 2 MG TAB As Ordered ONE
--- NOTE | 2020-02-15 10:27 | ECWPNPC ---
PATIENT NAME: JUAN KELSEY : 1960 GENDER: FEMALE VISIT DATE: 02/10/2020 DISCHARGE DATE: 02/10/20 1128 VISIT LOCKED DATE TIME: PHYSICIAN: CONRAD BONE RESOURCE: CONRAD BONE REASON FOR APPOINTMENT 1. POST BILAT / HAVE PATIENT SIGN RELEASE OF INFORMATION FOR [facility] PAIN MANAGEMENT HISTORY OF PRESENT ILLNESS HISTORY OF PRESENT ILLNESS: PHONE CALL TO PATIENT WHO GIVES PERMISSION FOR TELEPHONE VISIT TODAY. HAD BILATERAL LUMBAR THERAPEUTIC FACET BLOCK ON 01/27/2020. REPORTING 50% IMPROVEMENT IN LOW BACK PAIN FOR 2 DAYS POSTPROCEDURE AND THEN PAIN RETURNED TO BASELINE. RATING PAIN VAS 10 OVER 10. PAIN IS DESCRIBED STABBING AND ACHING. PAIN IS AGGRAVATED BY INCREASED ACTIVITY. REVIEWED MRI OF LS SPINE AND DISCUSSED TREATMENT OPTIONS TO INCLUDE DIAGNOSTIC LUMBAR FACET BLOCK/RADIOFREQUENCY. PATIENT IS RECEPTIVE. PAIN THE PATIENT DESCRIBES THE PAIN... FALL RISK SCREENING: SCREENING :NO FALLS REPORTED IN THE LAST YEAR CURRENT MEDICATIONS TAKING GABAPENTIN 400 MG CAPSULE 2 CAPSULES ORALLY TID TAKING HALOPERIDOL 5 MG TABLET 1 TABLET ORALLY TWICE A DAY TAKING LACTULOSE 10 GM/15ML SOLUTION 15 ML ORALLY ONCE A DAY TAKING LEVOTHYROXINE SODIUM 25 MCG TABLET 1 TABLET IN THE MORNING ON AN EMPTY STOMACH ORALLY ONCE A DAY TAKING LISINOPRIL 5 MG TABLET 1 TABLET ORALLY ONCE A DAY TAKING ATIVAN 0.5 MG TABLET 1 TABLET NEEDED ORALLY BID TAKING MELOXICAM 15 MG TABLET 1 TABLET ORALLY ONCE A DAY TAKING METFORMIN HCL 500 MG TABLET 1 TABLET WITH A MEAL ORALLY ONCE A DAY TAKING OXYBUTYNIN CHLORIDE 5 MG TABLET 1 TABLET ORALLY DAILY TAKING SERTRALINE HCL 100 MG TABLET 2 TABLETS ORALLY ONCE A DAY TAKING TRIHEXYPHENIDYL HCL 2 MG TABLET 1 TABLET ORALLY BEFORE BEDTIME TAKING AMBIEN 5 MG TABLET 1 TABLET AT BEDTIME ORALLY ONCE A DAY TAKING COLACE 100 MG CAPSULE 2 CAPSULES ORALLY DAILY NEEDED TAKING CLOZARIL 25 MG TABLET 1 TABLET ORALLY ONCE A DAY TAKING CLOZARIL 100 MG TABLET 1 TABLET IN AM, 2 TABLETS AT BEDTIME ORALLY BID TAKING ACETAMINOPHEN 325 MG TABLET 1 TABLET NEEDED ORALLY BID TAKING CHOLECALCIFEROL 50 MCG (1999) CAPSULE 1 CAPSULE ORALLY ONCE A DAY TAKING ASPIRIN 81 81 MG TABLET DELAYED RELEASE 1 TABLET ORALLY ONCE A DAY TAKING ATORVASTATIN CALCIUM 10 MG TABLET 1 TABLET ORALLY BEFORE BEDTIME TAKING MAGNESIUM 100 MG TABLET 4 TABLETS WITH A MEAL ORALLY ONCE A DAY MEDICATION LIST REVIEWED AND RECONCILED WITH THE PATIENT PAST MEDICAL HISTORY DIABETES BORDERLINE HTN HIGH CHOLESTEROL KIDNEY PROBLEMS ANXIETY DEPRESSION PSYCHOSIS PARANOID SCHIZOPHRENIA THYROID DISORDER? GLAUCOMA ALLERGIES PENICILLIN (FOR ALLERGIES USE ONLY): RASH - ALLERGY SULFA (FOR ALLERGY USE ONLY): NAUSEA/VOMITING - ALLERGY LACTOSE: NAUSEA/VOMITING - ALLERGY MELLARIL: ALLERGY SURGICAL HISTORY LEFT KIDNEY SURGERY LEFT EAR SURGERY FAMILY HISTORY FATHER: MOTHER: 2 BROTHER(S) , 2 SISTER(S) . FAMILY HISTORY UNKNOWN. SOCIAL HISTORY GENERAL: TOBACCO USE ARE YOU A:FORMER SMOKER HOW LONG HAS IT BEEN SINCE YOU LAST SMOKED?> 10 YEARS OTHERS AT HOME: ALF - [facility] IN [place]. DIET: NO LACTOSE, REGULAR. LANGUAGE LANGUAGES SPOKEN:DANISH NEW PATIENT PAIN DIARY PATIENT DESCRIBES PAIN :ACHING, HAVE IT ALL THE TIME, STABBING FROM 0-10, WHAT LEVEL IS YOUR PAIN TODAY?10 PRECIPITATING FACTORS ACTIVITY ALLEVIATING FACTORS STRETCHES AND WALKING IMPACT ON FUNCTION YES RECREATIONAL DRUG USE DRUG USE?NO EXERCISE: WALKS, DAILY - WHEN WEATHER PERMITS. 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 NEEDED?NO PAIN CLINIC PFS, CLERGY, PUBLIC HEALTH REFERRALS HAS THE PATIENT BEEN EDUCATED REGARDING HIS/HER PLAN OF CARE?YES HAS THE PATIENT BEEN EDUCATED REGARDING PAIN, THE RISK FOR PAIN, THE IMPORTANCE OF EFFECTIVE PAIN MANAGEMENT, AND THE PAIN ASSESSMENT PROCESS?YES LATEX QUESTIONNAIRE LATEX ALLERGY : HAVE YOU EVER DEVELOPED ANY TYPE OF REACTION AFTER HANDLING LATEX PRODUCTS SUCH RUBBER GLOVES, CONDOMS, DIAPHRAGMS, BALLOONS, SOCKS, OR UNDERWEAR?NO LATEX ALLERGY : HAVE YOU EVER DEVELOPED ANY TYPE OF REACTION DURING OR AFTER DENTAL APPOINTMENT, VAGINAL/RECTAL EXAMINATION, SURGICAL PROCEDURE, OR ANY OTHER EXPOSURE?NO DATE ASKED : 12/03/2019 LATEX RISK : HAVE YOU EVER HAD ANY DIFFICULTY BREATHING OR HIVES AFTER EATING OR HANDLING ANY FRUITS, OR VEGETABLES; SUCH KIWI, BANANAS, STONE FRUITS, OR CHESTNUTSNO LATEX RISK : DO YOU HAVE A PREVIOUS PERSONAL HISTORY OF MORE THAN NINE SURGERIES, SPINA BIFIDA, OR REPEATED CATHERIZATIONS? NO LATEX RISK : ARE YOU FREQUENTLY EXPOSED TO LATEX PRODUCTS IN YOUR OCCUPATION?NO CAFFEINE CAFFEINE USE?YES SODA AND COFFEE ADVANCE DIRECTIVE ADVANCE DIRECTIVE DISCUSSED WITH PATIENT:YES PATIENT HAS NO HCP, STATED SHE WOULD LIKE TO LOOK INTO GETTING ONE. INFORMED PATIENT THAT SHE COULD GET THE INFORMATION FROM US AT HER APPOINTMENT AND BRING IT HOME TO LOOK OVER AND FILL OUT. ALSO INFORMED HER THAT WE COULD HELP HER WITH THE FORM HERE IF SHE WOULD LIKE. MARITAL STATUS: SINGLE. ALCOHOL SCREENING DID YOU HAVE A DRINK CONTAINING ALCOHOL IN THE PAST YEAR?NO POINTS0 INTERPRETATIONNEGATIVE OCCUPATION: UNEMPLOYED. PRE-SCREENING COMPLETED 12/03/2019 1400 JS - MISSING ONE MEDICATION ALLERGY, PATIENT UNSURE OF SPELLING OF MEDICATION & COULD NOT PULL UP UNDER ALLERGIES. VERIFIED WITH PATIENT 12/04/19 1323 BVREVIEWED WITH PATIENT 12/23/2019 1014 JS. HOSPITALIZATION/MAJOR DIAGNOSTIC PROCEDURE MENTAL HEALTH - MULTIPLE BOWEL OBSTRUCTION 2019 SURGERY RELATED SLEEP APNEW TESTING REVIEW OF SYSTEMS REVIEWED BY: PROVIDER: CONRAD COSME . CONSTITUTIONAL: ANY CHANGE IN YOUR MEDICAL CONDITION? NO . CHILLS NO . FEVER NO . INFECTION: DO YOU HAVE NEW INFECTIONS? NO . DO YOU HAVE HISTORY OF MRSA? NO . MUSCULOSKELETAL: ANY NEW PATTERNS OF PAIN OR NUMBNESS? YES, PAIN IS WORSE . GASTROENTEROLOGY: ANY NEW CHANGE IN BOWEL CONTROL? NO . GENITOURINARY: ANY NEW CHANGE IN BLADDER CONTROL? YES, PT C/O FREQUENCY AND URGENCY JUST STARTED YESTERDAY. PT HAS APPT W PCP 02/2020, WILL DISCUSS THEN . IS THERE A CHANCE YOU COULD BE ? NO . HEMATOLOGY/LYMPH: DO YOU TAKE ANY BLOOD THINNERS? (FOR EXAMPLE- COUMADIN, PLAVIX, AGGRENOX, PLATEL, PRADAXA, OR XARELTO) NO . WHEN WAS YOUR LAST DOSE? DATE: TIME: . NEUROLOGY: HAVE YOU FALLEN IN THE PAST 12 MONTHS? NO . ANY NEW EXTREMITY NUMBNESS OR WEAKNESS? NO . CARDIOLOGY: DO YOU HAVE A PACEMAKER OR DEFIBRILLATOR? NO . RESPIRATORY: HAVE YOU BEEN SICK IN THE PAST WEEK? NO . FEVER NO . FLU LIKE SYMPTOMS? NO . COUGH NO . INTEGUMENTARY: DO YOU HAVE ANY RASHES OR OPEN SORES? NO . ALLERGIC/IMMUNO: ARE YOU ALLERGIC TO IV DYE? NO . ANY NEW ALLERGIES? NO . PSYCHIATRIC: DO YOU HAVE THOUGHTS OF HURTING YOURSELF OR SOMEONE ELSE? NO . ARE YOU ABUSED, NEGLECTED, OR IN AN UNSAFE ENVIRONMENT? NO . ENDOCRINOLOGY: ARE YOU DIABETIC? YES . OTHER: DO YOU NEED ANY PRESCRIPTIONS? NO . IF YES, PLEASE LIST: ____ . ANY NEW PROBLEMS WITH YOUR MEDICATIONS? NO . WHEN DID YOU LAST EAT? ____ . WHEN DID YOU LAST DRINK? ____ . WHAT DID YOU LAST DRINK? ____ . NAME OF PERSON DRIVING YOU HOME? ____ . DO YOU HAVE ANY OTHER QUESTIONS OR CONCERNS NO . ASSESSMENTS SPONDYLOSIS WITHOUT MYELOPATHY OR RADICULOPATHY, LUMBAR REGION - M47.816 (PRIMARY) TREATMENT SPONDYLOSIS WITHOUT MYELOPATHY OR RADICULOPATHY, LUMBAR REGION NOTES: PATIENT WILL RETURN TO CLINIC IN 4-6 WEEKS FOR PREPROCEDURE EVALUATION AND CONSIDERATION: DIAGNOSTIC LUMBAR FACET BLOCK/RADIOFREQUENCY. TOTAL TIME SPENT IN PHONE EVALUATION AND MANAGEMENT APPROXIMATELY 11 MINUTES. OTHERS CLINICAL NOTES: PT AGREES TO SPEAK OVER PHONE FOR APPT TODAY. 02/10/20 EM. DISPOSITION & COMMUNICATION FOLLOW UP 4-6 WEEKS. PREPROCEDURE (REASON: CONSIDER LUMBAR FACET BLOCK DIAGNOSTIC) ELECTRONICALLY SIGNED BY BA MONTESINOS ON 02/10/2020 AT 10:37 AM EDT DISCLAIMER : THIS IS A VISIT SUMMARY EXTRACTED FROM THE [employer] CHART. IT IS NOT A COPY OF THE [employer] PROGRESS NOTE. SHAR
== END ==
LOC: M PAIN 09:45
PROVIDERS: ATTEND Nurse Practitioner Family
DX: M47.816 Spondylosis without myelopathy or radiculopathy, lumbar region (principal); E11.9 Type 2 diabetes mellitus without complications; E07.9 Disorder of thyroid, unspecified; Z79.82 Long term (current) use of aspirin; Z79.84 Long term (current) use of oral hypoglycemic drugs; Z79.899 Other long term (current) drug therapy; Z88.0 Allergy status to penicillin; Z88.2 Allergy status to sulfonamides; Z88.8 Allergy status to other drugs, medicaments and biological substances; Z91.011 Allergy to milk products; Z87.891 Personal history of nicotine dependence

== ENCOUNTER → 2020-04-14 | Outpatient (CLI) | payer MEDICARE, MEDICAID ==
[~2020-04-14] MED LIST changes: -LACT10SO29 PO; +LACT20EL PO
--- NOTE | 2020-04-19 00:22 | ECWPNPC ---
PATIENT NAME: JUAN KELSEY : 1960 GENDER: FEMALE VISIT DATE: 04/14/2020 DISCHARGE DATE: 04/14/20 1259 VISIT LOCKED DATE TIME: PHYSICIAN: CONRAD BONE RESOURCE: CONRAD BONE REASON FOR APPOINTMENT 1. MED REVIEW HISTORY OF PRESENT ILLNESS GENERAL: PATIENT IS AGREEABLE TO TELEPHONE VISIT TODAY. THIS IS A FOLLOW-UP AND MEDICINE MANAGEMENT VISIT FOR CHRONIC GENERALIZED PAIN/FIBROMYALGIA. STARTED ON LYRICA 100 MG MORNING AND NIGHT. 2 WEEKS AGO. WEANED OFF OF GABAPENTIN. FEELS IT MAY BE TAKING THE EDGE OFF. RATING HER PAIN LEVEL A 10 OVER 10. COMPLAINING OF CRAMPING IN HER LEGS. COMPLAINING OF LOW BACK PAIN. DISCUSSED TREATMENT PLAN. -. FALL RISK SCREENING: SCREENING :NO FALLS REPORTED IN THE LAST YEAR PAIN SCREENING: PATIENT HAS A COMPLAINT OF ACUTE OR CHRONIC PAIN :YES 04/14/20 INTENSITY OF PAIN (SCALE OF 1 TO 10):10 WHAT DOES YOUR PAIN FEEL LIKE:ACHING, CONTINOUS, INTERMITTENT, THROBBING PAIN IS INCREASED BY: ACTIVITY PAIN IS DECREASED BY: REST NURSING NOTE: -. PAIN CENTER INTAKE QUESTIONS: DO YOU HAVE A HISTORY OF MRSA? :NO DO YOU TAKE A BLOOD THINNERS? :NO DO YOU HAVE ANY BLEEDING DISORDERS? :NO ANY NEW NUMBNESS OR WEAKNESS IN YOUR LEGS OR ARMS? :YES LEGS ANY PACEMAKER,DEFIBRILLATOR, OR DORSAL COLUMN STIMULATOR? :NO DO YOU HAVE ANY RASHES OR OPEN SORES? :NO ARE YOU ALLERGIC TO IV DYE? :NO ARE YOU DIABETIC? :YES ANY NEW PROBLEMS WITH YOUR MEDICATIONS? :NO HAVE YOU RECEIVED A VACCINE IN THE PAST 30 DAYS? :NO DO YOU PLAN TO RECEIVE A VACCINE IN THE NEXT 21 DAYS? :NO DO YOU NEED ANY PRESCRIPTION? :NO DO YOU TAKE ANY IMMUNOSUPPRESSIVE MEDICATIONS? :NO IS THERE A CHANCE YOU COULD BE ? :NO ARE YOU BREAST FEEDING? :NO CURRENT MEDICATIONS TAKING HALOPERIDOL 5 MG TABLET 1 TABLET ORALLY TWICE A DAY TAKING LACTULOSE 10 GM/15ML SOLUTION 15 ML ORALLY ONCE A DAY TAKING LEVOTHYROXINE SODIUM 25 MCG TABLET 1 TABLET IN THE MORNING ON AN EMPTY STOMACH ORALLY ONCE A DAY TAKING LISINOPRIL 5 MG TABLET 1 TABLET ORALLY ONCE A DAY TAKING ATIVAN 0.5 MG TABLET 1 TABLET NEEDED ORALLY BID TAKING MELOXICAM 15 MG TABLET 1 TABLET ORALLY ONCE A DAY TAKING METFORMIN HCL 500 MG TABLET 1 TABLET WITH A MEAL ORALLY ONCE A DAY TAKING OXYBUTYNIN CHLORIDE 5 MG TABLET 1 TABLET ORALLY DAILY TAKING SERTRALINE HCL 100 MG TABLET 2 TABLETS ORALLY ONCE A DAY TAKING TRIHEXYPHENIDYL HCL 2 MG TABLET 1 TABLET ORALLY BEFORE BEDTIME TAKING AMBIEN 5 MG TABLET 1 TABLET AT BEDTIME ORALLY ONCE A DAY TAKING COLACE 100 MG CAPSULE 2 CAPSULES ORALLY DAILY NEEDED TAKING CLOZARIL 100 MG TABLET 1 TABLET IN AM, 2 TABLETS AT BEDTIME ORALLY BID TAKING ACETAMINOPHEN 325 MG TABLET 1 TABLET NEEDED ORALLY BID TAKING CHOLECALCIFEROL 50 MCG (1999 [place]) CAPSULE 1 CAPSULE ORALLY ONCE A DAY TAKING ASPIRIN 81 81 MG TABLET DELAYED RELEASE 1 TABLET ORALLY ONCE A DAY TAKING ATORVASTATIN CALCIUM 10 MG TABLET 1 TABLET ORALLY BEFORE BEDTIME TAKING MAGNESIUM 100 MG TABLET 4 TABLETS WITH A MEAL ORALLY ONCE A DAY TAKING LYRICA 100 MG CAPSULE 1 CAPSULE ORALLY BID MDD2 TAKING GABAPENTIN 100 MG CAPSULE 2 CAPSULE ORALLY TID X7DAYS,BID X7DAYS,1 DAILY X7 DAYS THEN STOP NOT-TAKING CLOZARIL 25 MG TABLET 1 TABLET ORALLY ONCE A DAY NOT-TAKING LIPITOR 10 MG TABLET 1 TABLET ORALLY ONCE A DAY NOT-TAKING NITROFURANTOIN MACROCRYSTAL 100 MG CAPSULE 1 CAPSULE WITH FOOD OR MILK ORALLY BID MEDICATION LIST REVIEWED AND RECONCILED WITH THE PATIENT PAST MEDICAL HISTORY DIABETES BORDERLINE HTN HIGH CHOLESTEROL KIDNEY PROBLEMS ANXIETY DEPRESSION PSYCHOSIS PARANOID SCHIZOPHRENIA THYROID DISORDER? GLAUCOMA ALLERGIES PENICILLIN (FOR ALLERGIES USE ONLY): RASH - ALLERGY SULFA (FOR ALLERGY USE ONLY): NAUSEA/VOMITING - ALLERGY LACTOSE: NAUSEA/VOMITING - ALLERGY MELLARIL: ALLERGY SURGICAL HISTORY LEFT KIDNEY SURGERY LEFT EAR SURGERY FAMILY HISTORY FATHER: MOTHER: 2 BROTHER(S) , 2 SISTER(S) . FAMILY HISTORY UNKNOWN. SOCIAL HISTORY GENERAL: TOBACCO USE ARE YOU A:FORMER SMOKER HOW LONG HAS IT BEEN SINCE YOU LAST SMOKED?> 10 YEARS LATEX QUESTIONNAIRE LATEX ALLERGY : HAVE YOU EVER DEVELOPED ANY TYPE OF REACTION AFTER HANDLING LATEX PRODUCTS SUCH RUBBER GLOVES, CONDOMS, DIAPHRAGMS, BALLOONS, SOCKS, OR UNDERWEAR?NO LATEX ALLERGY : HAVE YOU EVER DEVELOPED ANY TYPE OF REACTION DURING OR AFTER DENTAL APPOINTMENT, VAGINAL/RECTAL EXAMINATION, SURGICAL PROCEDURE, OR ANY OTHER EXPOSURE?NO DATE ASKED : 03/23/2020 LATEX RISK : HAVE YOU EVER HAD ANY DIFFICULTY BREATHING OR HIVES AFTER EATING OR HANDLING ANY FRUITS, OR VEGETABLES; SUCH KIWI, BANANAS, STONE FRUITS, OR CHESTNUTSNO LATEX RISK : DO YOU HAVE A PREVIOUS PERSONAL HISTORY OF MORE THAN NINE SURGERIES, SPINA BIFIDA, OR REPEATED CATHERIZATIONS? NO LATEX RISK : ARE YOU FREQUENTLY EXPOSED TO LATEX PRODUCTS IN YOUR OCCUPATION?NO ALCOHOL SCREENING DID YOU HAVE A DRINK CONTAINING ALCOHOL IN THE PAST YEAR?NO POINTS0 INTERPRETATIONNEGATIVE RECREATIONAL DRUG USE DRUG USE?NO CAFFEINE CAFFEINE USE?YES SODA AND COFFEE LANGUAGE LANGUAGES SPOKEN:DUTCH LEARNING BARRIERS / SPECIAL NEEDS BARRIERS TO LEARNING?YES COMMENTSDOCUMENTED IN NOTES SECTION> SEE BELOW HEARING IMPAIRED?NO VISION IMPAIRED?NO COGNITIVELY IMPAIRED?NO READINESS TO LEARN?YES LEARNING PREFERENCES?YES :TAPES/VIDEOS, BOOKLETS, HANDOUTS LEARNING CAPABILITIES PRESENT?YES EMOTIONAL BARRIERS?YES COMMENTSDOCUMENTED IN NOTES SECTION> PATIENT HAS HISTORY OF PSYCHOSIS, DEPRESSION, ANXIETY, AND PARANOID SCHIZOPHRENIA SPECIAL DEVICES?YES :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 DIET: NO LACTOSE, REGULAR. EXERCISE: WALKS, DAILY - WHEN WEATHER PERMITS. MARITAL STATUS: SINGLE. 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 NEW PATIENT PAIN DIARY TODAY'S VISIT 03/23/20 PATIENT DESCRIBES PAIN :ACHING, HAVE IT ALL THE TIME, STABBING FROM 0-10, WHAT LEVEL IS YOUR PAIN TODAY?10 PRECIPITATING FACTORS ACTIVITY ALLEVIATING FACTORS STRETCHES AND WALKING IMPACT ON FUNCTION YES PAIN CLINIC PFS, CLERGY, PUBLIC HEALTH REFERRALS WAS THE PROVIDER NOTIFIED OF ANY PERTINENT INFO?YES HAS THE PATIENT BEEN EDUCATED REGARDING HIS/HER PLAN OF CARE?YES HAS THE PATIENT BEEN EDUCATED REGARDING PAIN, THE RISK FOR PAIN, THE IMPORTANCE OF EFFECTIVE PAIN MANAGEMENT, AND THE PAIN ASSESSMENT PROCESS?YES ADVANCE DIRECTIVE ADVANCE DIRECTIVE DISCUSSED WITH PATIENT:YES PATIENT HAS NO HCP, STATED SHE WOULD LIKE TO LOOK INTO GETTING ONE. INFORMED PATIENT THAT SHE COULD GET THE INFORMATION FROM US AT HER APPOINTMENT AND BRING IT HOME TO LOOK OVER AND FILL OUT. ALSO INFORMED HER THAT WE COULD HELP HER WITH THE FORM HERE IF SHE WOULD LIKE. HOSPITALIZATION/MAJOR DIAGNOSTIC PROCEDURE MENTAL HEALTH - MULTIPLE BOWEL OBSTRUCTION 2019 SURGERY RELATED SLEEP APNEW TESTING REVIEW OF SYSTEMS CONSTITUTIONAL: ANY RECENT FEVER OR ILLNESS NO . CHILLS NO . GASTROENTEROLOGY: BOWEL INCONTINENCE NO . ANY NEW CHANGE IN BOWEL CONTROL? NO . ABDOMINAL PAIN NO . CONSTIPATION NO . GENITOURINARY: ANY NEW CHANGE IN BLADDER CONTROL? NO . IS THERE A CHANCE YOU COULD BE ? NO . URINARY INCONTINENCE NO . CARDIOLOGY: CHEST PRESSURE NO . CHEST PAIN NO . RESPIRATORY: COUGH NO . SHORTNESS OF BREATH NO . 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 ADVISED TO INCREASE LYRICA TO 200 MG TWICE A DAY. USE UP 100 MG LYRICA CAPSULES AND START 2 CAPSULES MORNING AND NIGHT UNTIL GONE. I'VE PRESCRIBED LYRICA 200 MG CAPSULE 1 TWICE A DAY TO [facility] IN [place]. RECOMMEND FOLLOW-UP AT PAIN CLINIC IN 6-8 WEEKS TO DO PHYSICAL EXAM AND EVALUATE TREATMENT PLAN. TOTAL TIME SPENT DURING TELEPHONE VISIT WAS APPROXIMATELY 12 MINUTES. OTHERS CLINICAL NOTES: PRE SCREENING CALL DONE 04/14/20 EM. DISPOSITION & COMMUNICATION FOLLOW UP 6-8WKS IN CLINIC VISIT (REASON: LOW BACK PAIN/FIBROMYALGIA) ELECTRONICALLY SIGNED BY BA MONTESINOS ON 04/18/2020 AT 11:50 AM EDT DISCLAIMER : THIS IS A VISIT SUMMARY EXTRACTED FROM THE [facility] CHART. IT IS NOT A COPY OF THE [facility] PROGRESS NOTE. SHAR
== END ==
LOC: M PAIN 13:45
PROVIDERS: ATTEND Nurse Practitioner Family
DX: M79.7 Fibromyalgia (principal); M47.27 Other spondylosis with radiculopathy, lumbosacral region

== ENCOUNTER → 2020-04-15 | Outpatient (REF) | payer MEDICARE, MEDICAID ==
[2020-04-15 12:16] LABS: HEMATOCRIT 34.5 % (36.0-47.0); HEMOGLOBIN 10.9 g/dl (12.0-15.5); LYMPH # 1.6 10^3/uL (1.5-5.0); LYMPH % 21.9 % (24.0-44.0); MEAN CORPUSCULAR HEMOGLOBIN 28.2 pg (27.0-33.0); MEAN CORPUSCULAR HGB CONC 31.6 g/dl (32.0-36.5); MEAN CORPUSCULAR VOLUME 89.4 fl (80.0-96.0); MONO # 0.5 10^3/uL (0.0-0.8); MONO % 6.8 % (0.0-5.0); NEUTROPHILS # 5.2 10^3/uL (1.5-8.5); NEUTROPHILS % 70.9 % (36.0-66.0); PLATELET COUNT, AUTOMATED 243 10^3/uL (150-450); RED BLOOD COUNT 3.86 10^6/uL (4.00-5.40); WHITE BLOOD COUNT 7.4 10^3/uL (4.0-10.0)
[2020-04-19 09:07] LABS: CLOZAPINE 1 667 ng/mL (350-650); CLOZAPINE 2 431 ng/mL (Not Estab.); CLOZAPINE 3 1098 ng/mL (.)
== END ==
LOC: M LABDRAWC 11:47
PROVIDERS: ATTEND Registered Nurse
DX: F25.1 Schizoaffective disorder, depressive type (principal)

== ENCOUNTER 2020-05-21 19:35 | Inpatient (IN) | payer MEDICARE, MEDICAID ==
[~2020-05-21] VITALS: Ht 165.1 cm; Wt 109.1 kg
[2020-05-21] MEDS ORDERED: VITA-1 PO (20:04)
[2020-05-21] MEDS ORDERED: MAG400TA PO (20:04)
[2020-05-21] MEDS ORDERED: PREG100C PO (20:04)
[2020-05-21] MEDS ORDERED: VITACAP8 PO (20:04)
[2020-05-21] MEDS ORDERED: VITA200010 (20:04)
[2020-05-21 20:14] LABS: HEMATOCRIT 39.1 % (36.0-47.0); HEMOGLOBIN 12.1 g/dl (12.0-15.5); MEAN CORPUSCULAR HEMOGLOBIN 26.8 pg (27.0-33.0); MEAN CORPUSCULAR HGB CONC 30.9 g/dl (32.0-36.5); MEAN CORPUSCULAR VOLUME 86.7 fl (80.0-96.0); PLATELET COUNT, AUTOMATED 247 10^3/uL (150-450); RED BLOOD COUNT 4.51 10^6/uL (4.00-5.40); WHITE BLOOD COUNT 9.1 10^3/uL (4.0-10.0)
[2020-05-21 20:49] LABS: AMPHETAMINES LEVEL URINE NEGATIVE (NEGATIVE); BARBITURATES URINE NEGATIVE (NEGATIVE); BENZODIAZEPINES URINE NEGATIVE (NEGATIVE); CANNABINOIDS URINE NEGATIVE (NEGATIVE); COCAINE METABOLITE URINE NEGATIVE (NEGATIVE); METHADONE URINE NEGATIVE (NEGATIVE); OPIATES URINE NEGATIVE (NEGATIVE); PHENCYCLIDINE URINE NEGATIVE (NEGATIVE)
[2020-05-21 20:57] LABS: ACETAMINOPHEN LEVEL < 2.0 UG/ML (10.0-30.0); ALBUMIN 4.1 GM/DL (3.2-5.2); ALT/SGPT 21 U/L (12-78); BILIRUBIN,DIRECT < 0.1 MG/DL (0.0-0.2); BILIRUBIN,TOTAL 0.2 MG/DL (0.2-1.0); BLOOD UREA NITROGEN 21 MG/DL (7-18); CALCIUM LEVEL 9.6 MG/DL (8.5-10.1); CARBON DIOXIDE LEVEL 30 MEQ/L (21-32); CHLORIDE LEVEL 105 MEQ/L (98-107); CREATININE FOR GFR 1.04 MG/DL (0.55-1.30); ETHYL ALCOHOL (ETHANOL) < 0.003 % (0.000-0.010); GLOMERULAR FILTRATION RATE 57.7 (>51); GLUCOSE, FASTING 109 MG/DL (70-100); POTASSIUM SERUM 3.6 MEQ/L (3.5-5.1); SALICYLATE LEVEL < 1.7 MG/DL (5.0-30.0); SODIUM LEVEL 139 MEQ/L (136-145); THYROID STIMULATING HORMONE 0.737 uIU/ML (0.358-3.740); TOTAL PROTEIN 7.6 GM/DL (6.4-8.2)
[2020-05-21] MEDS ORDERED: PALIPERIDONE 3 MG ER TAB (INVEGA) PO SCH (21:00)
[2020-05-22] MEDS ORDERED: ATORVASTATIN 20 MG TAB PO ONE (00:45)
[2020-05-22] MEDS ORDERED: zolPIDEM TARTRATE 5 MG TAB PO ONE (00:45)
[2020-05-22] MEDS ORDERED: OLANZapine 5 MG TAB PO PRN (02:00)
[2020-05-22] MEDS ORDERED: MOM 30ML SUSPENSION UDC PO PRN (02:00)
[2020-05-22] MEDS ORDERED: MAALOX 30 ML SUSP *UDC PO PRN (02:00)
[2020-05-22] MEDS: ACETAMINOPHEN TAB 650MG DOSE (2X325MG) PO PRN ×2 (02:42→08:09)
[2020-05-22] MEDS ORDERED: CLOZ100T2 PO (02:45)
[2020-05-22] MEDS ORDERED: CLOZ200T PO (02:45)
[2020-05-22] MEDS ORDERED: VITAD1000T PO (02:45)
[2020-05-22] MEDS ORDERED: ATOR1TAB19 PO (02:51)
[2020-05-22 03:33] VITALS: BP 152/75
[2020-05-22] MEDS: OLANZapine ORAL DISINTEGRATING TAB 5MG PO PRN ×2 (08:09→20:53)
--- NOTE | 2020-05-22 08:49 | ECGEPIP ---
[facility] - ED Test Date: 2020-05-21 Pat Name: JUAN KELSEY Department: Room: - Gender: Female Charter Driver: DENY : 1960 Requested By: TIEN SHUKLA Order Number: [id number] Reading MD: Luis Costa Measurements Intervals [place] Rate: 80 P: 73 WV: 154 QRS: 19 QRSD: 110 T: 52 QT: 359 QTc: 416 Interpretive Statements SINUS RHYTHM LOW QRS VOLTAGE IN PRECORDIAL LEADS POOR R WAVE PROGRESSION INCOMPLETE RIGHT BUNDLE BRANCH BLOCK BASELINE ARTIFACT AFFECTS INTERPRETATION Electronically Signed on 05-22-2020 8:49:34 EDT by Luis Costa
[2020-05-22] MEDS ORDERED: MELOXICAM (MOBIC) 7.5 MG TAB PO SCH (09:00)
[2020-05-22] MEDS ORDERED: LORazepam 0.5 MG TAB PO PRN (09:00)
[2020-05-22] MEDS: SERTRALINE 100 MG TAB PO SCH (09:59)
[2020-05-22] MEDS: VITAMIN D 1,000 INTERNATIONAL UNITS TABLET PO SCH (09:59)
[2020-05-22] MEDS: DOCUSATE SODIUM 100 MG CAP PO SCH (09:59)
[2020-05-22] MEDS: ASPIRIN 81 MG ENTERIC TAB PO SCH (09:59)
[2020-05-22] MEDS: ATORVASTATIN 10 MG TAB PO SCH (09:59)
[2020-05-22] MEDS: VITAMIN E 400 INTERNATIONAL UNITS CAP PO SCH (09:59)
[2020-05-22] MEDS: haloperidoL 5 MG TAB PO SCH (10:00)
[2020-05-22] MEDS: LACTULOSE 20 GM/30 ML SYRUP UD PO SCH (10:00)
[2020-05-22] MEDS: PREGABALIN 100 MG CAP (LYRICA) PO SCH ×2 (10:00→20:53)
[2020-05-22] MEDS: MAGNESIUM OXIDE 400 MG TAB (MAG-OX) PO SCH ×2 (10:00→22:40)
[2020-05-22] MEDS: LEVOTHYROXINE 25MCG TABLET (0.025MG) PO SCH (10:01)
[2020-05-22] MEDS: lisinopriL 5 MG TAB PO SCH (10:10)
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
[2020-05-22 16:26] VITALS: BP 125/59
[2020-05-22] MEDS: cloZAPine 100 MG TAB (S0136) PO SCH (20:53)
[2020-05-22] MEDS: TRIHEXYPHENIDYL 2 MG TAB PO SCH (20:53)
[2020-05-22] MEDS: zolPIDEM TARTRATE 5 MG TAB PO PRN (20:53)
[2020-05-23] MEDS: LEVOTHYROXINE 25MCG TABLET (0.025MG) PO SCH (05:54)
[2020-05-23 06:02] VITALS: BP 117/60
--- NOTE | 2020-05-23 07:54 | MHIPNPDOC ---
[facility] Progress Note Progress Note DATE OF SERVICE: 05/23/20 HPI: Jennifer presents today for concerns regarding her depression. She is currently in the TLS. Patient notes her medication has been working well for her. She has been social and interacting more with other people. She notes she does not go to groups. Objective Appearance: Poor hygiene. Speech: Slow in production. No tangentiality. Cognition: Poor cognition. Thought Form: Nonlinear thinking at times. Thought Content: Auditory hallucinations. Passive suicidal ideation. Judgement: Poor judgment. Insight: Poor insight. Assessment Plan Continue medication, but will observe possibly adjustment reaction the setting of the long-term psychotic illness Vital Signs Vital Signs Date Time Temp Pulse Resp B/P (MAP) Pulse Ox O2 Delivery O2 Flow Rate FiO2 05/23/20 06:02 98.3 83 14 117/60 (79) 98 Room Air Current Medications Current Medications Medications (Trade) Dose Ordered Sig/Floyd Route PRN Reason Start Time Stop Time Status Last Admin Dose Admin Acetaminophen (Tylenol Tab) 650 mg Q6HP PRN PO HEADACHE or DISCOMFORT 05/22/20 02:00 05/22/20 08:09 Al Hydrox/Mg Hydrox/Simethicone (Mylanta) 30 ml Q4HP PRN PO HEARTBURN/INDIGESTION 05/22/20 02:00 Aspirin (Ecotrin) 81 mg DAILY PO 05/22/20 09:00 05/22/20 09:59 Atorvastatin Calcium (Lipitor) 10 mg DAILY PO 05/22/20 09:00 05/22/20 09:59 Clozapine (Clozaril) 200 mg QHS PO 05/22/20 21:00 05/22/20 20:53 Docusate Sodium (Colace) 100 mg DAILY PO 05/22/20 09:00 05/22/20 09:59 Haloperidol (Haldol) 5 mg DAILY PO 05/22/20 09:00 05/22/20 10:00 Home Med (Med Rec Complete!) ASDIRECTED XX 05/22/20 03:00 05/22/20 02:56 DC Lactulose (Cephulac) 15 ml DAILY PO 05/22/20 09:00 05/22/20 10:00 Levothyroxine Sodium (Synthroid) 25 mcg QAM@0600 PO 05/22/20 06:00 05/23/20 05:54 Lisinopril (Prinivil) 5 mg DAILY PO 05/22/20 09:00 05/22/20 10:10 Lorazepam (Ativan) 0.25 mg BID PRN PO anxiety 05/22/20 09:00 Magnesium Hydroxide (Milk Of Magnesia) 30 ml DAILYPRN PRN PO CONSTIPATION 05/22/20 02:00 Magnesium Oxide (Mag-Ox) 400 mg BID PO 05/22/20 09:00 05/22/20 22:40 Meloxicam (Mobic) 15 mg DAILY PO 05/22/20 09:00 05/22/20 12:13 DC 05/22/20 09:59 Olanzapine (ZyPREXA ZYDIS) 5 mg Q6HP PRN PO ANXIETY/AGITATION 05/22/20 02:45 05/22/20 20:53 Olanzapine (ZyPREXA) 5 mg Q6HP PRN PO ANXIETY/AGITATION 05/22/20 02:00 Cancel Paliperidone (Invega) 3 mg QHS PO 05/21/20 21:00 05/22/20 12:39 DC Pregabalin (Lyrica) 100 mg BID PO 05/22/20 09:00 05/22/20 20:53 Sertraline HCl (Zoloft) 200 mg DAILY PO 05/22/20 09:00 05/22/20 09:59 Trazodone HCl (Desyrel) 50 mg QHSP PRN PO INSOMNIA 05/22/20 02:00 Trihexyphenidyl HCl (Artane) 2 mg QHS PO 05/22/20 21:00 05/22/20 20:53 Vitamin D (Vitamin D) 2,000 units DAILY PO 05/22/20 09:00 05/22/20 09:59 Vitamin E (Vitamin E) 400 units DAILY PO 05/22/20 09:00 05/22/20 09:59 Zolpidem Tartrate (Ambien) 5 mg QHS PRN PO sleep 05/22/20 09:00 05/22/20 20:53 Allergies Coded Allergies: Penicillins (Verified Allergy, Unknown, rash/hives, 05/21/20) Sulfa (Sulfonamide Antibiotics) (Verified Allergy, Unknown, n/v, 05/21/20) "I get deathly ill, I feel like I'm dying." fluoxetine (Verified Allergy, Unknown, SI, 05/21/20) thioridazine (Verified Allergy, Unknown, 05/21/20) valproic acid (Verified Allergy, Unknown, SEDATION, 05/21/20) BRADLEY MARTINEZ DO May 23, 2020 07:54
[2020-05-23] MEDS: DOCUSATE SODIUM 100 MG CAP PO SCH (08:55)
[2020-05-23] MEDS: PREGABALIN 100 MG CAP (LYRICA) PO SCH ×2 (08:55→20:14)
[2020-05-23] MEDS: LACTULOSE 20 GM/30 ML SYRUP UD PO SCH (08:55)
[2020-05-23] MEDS: SERTRALINE 100 MG TAB PO SCH (08:55)
[2020-05-23] MEDS: ASPIRIN 81 MG ENTERIC TAB PO SCH (08:55)
[2020-05-23] MEDS: VITAMIN D 1,000 INTERNATIONAL UNITS TABLET PO SCH (08:55)
[2020-05-23] MEDS: VITAMIN E 400 INTERNATIONAL UNITS CAP PO SCH (08:56)
[2020-05-23] MEDS: ATORVASTATIN 10 MG TAB PO SCH (08:56)
[2020-05-23] MEDS: MAGNESIUM OXIDE 400 MG TAB (MAG-OX) PO SCH ×2 (08:56→20:14)
[2020-05-23] MEDS: lisinopriL 5 MG TAB PO SCH (08:56)
[2020-05-23] MEDS: haloperidoL 5 MG TAB PO SCH (08:56)
[2020-05-23 16:12] VITALS: BP 155/81
[2020-05-23] MEDS: ACETAMINOPHEN TAB 650MG DOSE (2X325MG) PO PRN (19:05)
[2020-05-23] MEDS: TRIHEXYPHENIDYL 2 MG TAB PO SCH (20:14)
[2020-05-23] MEDS: cloZAPine 100 MG TAB (S0136) PO SCH (20:15)
[2020-05-23] MEDS: zolPIDEM TARTRATE 5 MG TAB PO PRN (20:15)
[2020-05-24] MEDS: traZODone 50 MG TAB PO PRN (01:51)
[2020-05-24] MEDS: ACETAMINOPHEN TAB 650MG DOSE (2X325MG) PO PRN ×2 (05:21→20:27)
[2020-05-24 06:33] VITALS: BP 141/79
[2020-05-24] MEDS: LEVOTHYROXINE 25MCG TABLET (0.025MG) PO SCH (06:45)
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
[2020-05-24] MEDS: LACTULOSE 20 GM/30 ML SYRUP UD PO SCH (09:28)
[2020-05-24] MEDS: SERTRALINE 100 MG TAB PO SCH (09:29)
[2020-05-24] MEDS: PREGABALIN 100 MG CAP (LYRICA) PO SCH ×2 (09:29→20:25)
[2020-05-24] MEDS: MAGNESIUM OXIDE 400 MG TAB (MAG-OX) PO SCH ×2 (09:29→20:26)
[2020-05-24] MEDS: VITAMIN E 400 INTERNATIONAL UNITS CAP PO SCH (09:29)
[2020-05-24] MEDS: haloperidoL 5 MG TAB PO SCH (09:29)
[2020-05-24] MEDS: ASPIRIN 81 MG ENTERIC TAB PO SCH (09:29)
[2020-05-24] MEDS: DOCUSATE SODIUM 100 MG CAP PO SCH (09:29)
[2020-05-24] MEDS: VITAMIN D 1,000 INTERNATIONAL UNITS TABLET PO SCH (09:29)
[2020-05-24] MEDS: ATORVASTATIN 10 MG TAB PO SCH (09:29)
[2020-05-24] MEDS: lisinopriL 5 MG TAB PO SCH (09:31)
[2020-05-24 16:14] VITALS: BP 136/69
[2020-05-24] MEDS: cloZAPine 100 MG TAB (S0136) PO SCH (20:25)
[2020-05-24] MEDS: TRIHEXYPHENIDYL 2 MG TAB PO SCH (20:26)
[2020-05-24] MEDS: zolPIDEM TARTRATE 5 MG TAB PO PRN (20:54)
[2020-05-25] MEDS: traZODone 50 MG TAB PO PRN (00:09)
[2020-05-25] MEDS: ACETAMINOPHEN TAB 650MG DOSE (2X325MG) PO PRN (03:46)
[2020-05-25 06:40] VITALS: BP 140/82
[2020-05-25] MEDS: LEVOTHYROXINE 25MCG TABLET (0.025MG) PO SCH (06:53)
[2020-05-25] MEDS: LACTULOSE 20 GM/30 ML SYRUP UD PO SCH (08:56)
[2020-05-25] MEDS: VITAMIN E 400 INTERNATIONAL UNITS CAP PO SCH (08:56)
[2020-05-25] MEDS: haloperidoL 5 MG TAB PO SCH (08:56)
[2020-05-25] MEDS: SERTRALINE 100 MG TAB PO SCH (08:57)
[2020-05-25] MEDS: ATORVASTATIN 10 MG TAB PO SCH (08:57)
[2020-05-25] MEDS: MAGNESIUM OXIDE 400 MG TAB (MAG-OX) PO SCH ×2 (08:57→21:48)
[2020-05-25] MEDS: VITAMIN D 1,000 INTERNATIONAL UNITS TABLET PO SCH (08:57)
[2020-05-25] MEDS: DOCUSATE SODIUM 100 MG CAP PO SCH (08:57)
[2020-05-25] MEDS: PREGABALIN 100 MG CAP (LYRICA) PO SCH ×2 (08:57→21:48)
[2020-05-25] MEDS: ASPIRIN 81 MG ENTERIC TAB PO SCH (08:57)
[2020-05-25] MEDS: lisinopriL 5 MG TAB PO SCH (08:57)
--- NOTE | 2020-05-25 09:14 | MHIPNPDOC ---
[facility] Progress Note Progress Note DATE OF SERVICE: 05/25/20 HPI: Jennifer presents today for a follow-up visit. She admits her medication doses were changed after she visited the ER. Jennifer states her calves have pain with a more tightened feeling, she denies spasms. She states she is doing better regarding suicidal thoughts but had a thought to hurt herself earlier in the morning. Objective Appearance: Fair hygiene. Affect: Flat. Mood: Dysthymic. Reporting audiotry and visual hallucination. Speech: Spontaneous and Fluid. Normal volume. Slow rate. Cognition: Alert, Attentive, and Oriented to person, place, time. Judgement: Impaired. Insight: Impaired. Still has paranoid ideation about her home situation. Assessment F25.1 Schizoaffective disorder, depressive type Plan Increase Jennifers Sertraline to 250 mg daily as she has previously been on 300 mg daily; This was changed by reportedly an ER provider due to concern about it causing a side effect, but it appeared to coordinate heavily with her decompensation; this will increase. She could potentially be in major depression with psychotic features versus schizoaffective, however the determination of this kind appears generally academic. Vital Signs Vital Signs Date Time Temp Pulse Resp B/P (MAP) Pulse Ox O2 Delivery O2 Flow Rate FiO2 05/25/20 08:57 119/68 05/25/20 06:40 97.9 86 16 05/24/20 06:33 Room Air 05/23/20 06:02 98 Current Medications Current Medications Medications (Trade) Dose Ordered Sig/Floyd Route PRN Reason Start Time Stop Time Status Last Admin Dose Admin Acetaminophen (Tylenol Tab) 650 mg Q6HP PRN PO HEADACHE or DISCOMFORT 05/22/20 02:00 05/25/20 03:46 Al Hydrox/Mg Hydrox/Simethicone (Mylanta) 30 ml Q4HP PRN PO HEARTBURN/INDIGESTION 05/22/20 02:00 Aspirin (Ecotrin) 81 mg DAILY PO 05/22/20 09:00 05/25/20 08:57 Atorvastatin Calcium (Lipitor) 10 mg DAILY PO 05/22/20 09:00 05/25/20 08:57 Clozapine (Clozaril) 200 mg QHS PO 05/22/20 21:00 05/24/20 20:25 Docusate Sodium (Colace) 100 mg DAILY PO 05/22/20 09:00 05/25/20 08:57 Haloperidol (Haldol) 5 mg DAILY PO 05/22/20 09:00 05/25/20 08:56 Home Med (Med Rec Complete!) ASDIRECTED XX 05/22/20 03:00 05/22/20 02:56 DC Lactulose (Cephulac) 15 ml DAILY PO 05/22/20 09:00 05/25/20 08:56 Levothyroxine Sodium (Synthroid) 25 mcg QAM@0600 PO 05/22/20 06:00 05/25/20 06:53 Lisinopril (Prinivil) 5 mg DAILY PO 05/22/20 09:00 05/25/20 08:57 Lorazepam (Ativan) 0.25 mg BID PRN PO anxiety 05/22/20 09:00 Magnesium Hydroxide (Milk Of Magnesia) 30 ml DAILYPRN PRN PO CONSTIPATION 05/22/20 02:00 Magnesium Oxide (Mag-Ox) 400 mg BID PO 05/22/20 09:00 05/25/20 08:57 Meloxicam (Mobic) 15 mg DAILY PO 05/22/20 09:00 05/22/20 12:13 DC 05/22/20 09:59 Olanzapine (ZyPREXA ZYDIS) 5 mg Q6HP PRN PO ANXIETY/AGITATION 05/22/20 02:45 05/22/20 20:53 Olanzapine (ZyPREXA) 5 mg Q6HP PRN PO ANXIETY/AGITATION 05/22/20 02:00 Cancel Paliperidone (Invega) 3 mg QHS PO 05/21/20 21:00 05/22/20 12:39 DC Pregabalin (Lyrica) 100 mg BID PO 05/22/20 09:00 05/25/20 08:57 Sertraline HCl (Zoloft) 200 mg DAILY PO 05/22/20 09:00 05/25/20 08:57 Trazodone HCl (Desyrel) 50 mg QHSP PRN PO INSOMNIA 05/22/20 02:00 05/25/20 00:09 Trihexyphenidyl HCl (Artane) 2 mg QHS PO 05/22/20 21:00 05/24/20 20:26 Vitamin D (Vitamin D) 2,000 units DAILY PO 05/22/20 09:00 05/25/20 08:57 Vitamin E (Vitamin E) 400 units DAILY PO 05/22/20 09:00 05/25/20 08:56 Zolpidem Tartrate (Ambien) 5 mg QHS PRN PO sleep 05/22/20 09:00 05/24/20 20:54 Allergies Coded Allergies: Penicillins (Verified Allergy, Unknown, rash/hives, 05/21/20) Sulfa (Sulfonamide Antibiotics) (Verified Allergy, Unknown, n/v, 05/21/20) "I get deathly ill, I feel like I'm dying." fluoxetine (Verified Allergy, Unknown, SI, 05/21/20) thioridazine (Verified Allergy, Unknown, 05/21/20) valproic acid (Verified Allergy, Unknown, SEDATION, 05/21/20) BRADLEY MARTINEZ DO May 25, 2020 09:14
[2020-05-25] MEDS ORDERED: PILL CUTTER 1 EACH XX PRN (11:00)
[2020-05-25] MEDS ORDERED: ANALGESIC BALM CRM 120 GM TOP PRN (12:00)
[2020-05-25] MEDS: ANALGESIC BALM CRM 120 GM TOP SCH ×3 (15:53→21:48)
[2020-05-25 16:11] VITALS: BP 131/68
[2020-05-25] MEDS ORDERED: zolPIDEM TARTRATE 5 MG TAB PO PRN (20:30)
[2020-05-25] MEDS: TRIHEXYPHENIDYL 2 MG TAB PO SCH (21:48)
[2020-05-25] MEDS: cloZAPine 100 MG TAB (S0136) PO SCH (21:48)
[2020-05-26] MEDS: ACETAMINOPHEN TAB 650MG DOSE (2X325MG) PO PRN (03:47)
[2020-05-26] MEDS: LEVOTHYROXINE 25MCG TABLET (0.025MG) PO SCH (06:04)
[2020-05-26 06:40] VITALS: BP 127/70
--- NOTE | 2020-05-26 08:02 | MHIPNPDOC ---
[facility] Progress Note Progress Note DATE OF SERVICE: 05/26/20 Subjective HPI: Jennifer presents today for concerns regarding her depression. She notes that she is still depressed and has trouble finding motivation, but she tries hard to work through it. She is still having scary thoughts about the people at [facility]. She notes that she is doing better in terms of suicidal thoughts and does not have hallucinations. MEDICATIONS: She denies any side effects. Objective Mood: Appropriately reactive. Generally good. Less dysthymic. Speech: Normal rate. Normal volume. Spontaneous and fluid in speech more so than yesterday. Cognition: Mildly improved. Judgement: Fair. Insight: Fair. Assessment F25.1 Schizoaffective disorder, depressive type Plan Increase Sertraline to 300 mg nightly in order to maximize her effects as it appears as this change was proximal to her decompensation, and she has made good progress with the medication increase. Vital Signs Vital Signs Date Time Temp Pulse Resp B/P (MAP) Pulse Ox O2 Delivery O2 Flow Rate FiO2 05/26/20 06:40 97.8 75 18 127/70 (89) 05/24/20 06:33 Room Air 05/23/20 06:02 98 Current Medications Current Medications Medications (Trade) Dose Ordered Sig/Floyd Route PRN Reason Start Time Stop Time Status Last Admin Dose Admin Acetaminophen (Tylenol Tab) 650 mg Q6HP PRN PO HEADACHE or DISCOMFORT 05/22/20 02:00 05/26/20 03:47 Al Hydrox/Mg Hydrox/Simethicone (Mylanta) 30 ml Q4HP PRN PO HEARTBURN/INDIGESTION 05/22/20 02:00 Aspirin (Ecotrin) 81 mg DAILY PO 05/22/20 09:00 05/25/20 08:57 Atorvastatin Calcium (Lipitor) 10 mg DAILY PO 05/22/20 09:00 05/25/20 08:57 Clozapine (Clozaril) 200 mg QHS PO 05/22/20 21:00 05/25/20 21:48 Docusate Sodium (Colace) 100 mg DAILY PO 05/22/20 09:00 05/25/20 08:57 Haloperidol (Haldol) 5 mg DAILY PO 05/22/20 09:00 05/25/20 08:56 Home Med (Med Rec Complete!) ASDIRECTED XX 05/22/20 03:00 05/22/20 02:56 DC Lactulose (Cephulac) 15 ml DAILY PO 05/22/20 09:00 05/25/20 08:56 Levothyroxine Sodium (Synthroid) 25 mcg QAM@0600 PO 05/22/20 06:00 05/26/20 06:04 Lisinopril (Prinivil) 5 mg DAILY PO 05/22/20 09:00 05/25/20 08:57 Lorazepam (Ativan) 0.25 mg BID PRN PO anxiety 05/22/20 09:00 05/25/20 21:48 Magnesium Hydroxide (Milk Of Magnesia) 30 ml DAILYPRN PRN PO CONSTIPATION 05/22/20 02:00 Magnesium Oxide (Mag-Ox) 400 mg BID PO 05/22/20 09:00 05/25/20 21:48 Meloxicam (Mobic) 15 mg DAILY PO 05/22/20 09:00 05/22/20 12:13 DC 05/22/20 09:59 Menthol/Methyl Salicylate (Bengay Cream) BID PRN TOP pain 05/25/20 12:00 Menthol/Methyl Salicylate (Bengay Cream) to affected joints QID TOP 05/25/20 15:00 05/25/20 21:48 Olanzapine (ZyPREXA ZYDIS) 5 mg Q6HP PRN PO ANXIETY/AGITATION 05/22/20 02:45 05/22/20 20:53 Olanzapine (ZyPREXA) 5 mg Q6HP PRN PO ANXIETY/AGITATION 05/22/20 02:00 Cancel Paliperidone (Invega) 3 mg QHS PO 05/21/20 21:00 05/22/20 12:39 DC Pregabalin (Lyrica) 100 mg BID PO 05/22/20 09:00 05/25/20 21:48 Sertraline HCl (Zoloft) 200 mg DAILY PO 05/22/20 09:00 05/25/20 10:41 DC 05/25/20 08:57 Sertraline HCl (Zoloft) 250 mg DAILY PO 05/26/20 09:00 Trazodone HCl (Desyrel) 50 mg QHSP PRN PO INSOMNIA 05/22/20 02:00 05/25/20 20:18 DC 05/25/20 00:09 Trihexyphenidyl HCl (Artane) 2 mg QHS PO 05/22/20 21:00 05/25/20 21:48 Vitamin D (Vitamin D) 2,000 units DAILY PO 05/22/20 09:00 05/25/20 08:57 Vitamin E (Vitamin E) 400 units DAILY PO 05/22/20 09:00 05/25/20 08:56 Zolpidem Tartrate (Ambien) 5 mg QHS PRN PO sleep 05/22/20 09:00 05/25/20 20:18 DC 05/24/20 20:54 Zolpidem Tartrate (Ambien) 10 mg QHS PRN PO sleep 05/25/20 20:30 05/25/20 21:48 Allergies Coded Allergies: Penicillins (Verified Allergy, Unknown, rash/hives, 05/21/20) Sulfa (Sulfonamide Antibiotics) (Verified Allergy, Unknown, n/v, 05/21/20) "I get deathly ill, I feel like I'm dying." fluoxetine (Verified Allergy, Unknown, SI, 05/21/20) thioridazine (Verified Allergy, Unknown, 05/21/20) valproic acid (Verified Allergy, Unknown, SEDATION, 05/21/20) BRADLEY MARTINEZ DO May 26, 2020 08:02
[2020-05-26] MEDS: DOCUSATE SODIUM 100 MG CAP PO SCH (08:49)
[2020-05-26] MEDS: MAGNESIUM OXIDE 400 MG TAB (MAG-OX) PO SCH (08:49)
[2020-05-26] MEDS: ASPIRIN 81 MG ENTERIC TAB PO SCH (08:52)
[2020-05-26] MEDS: ATORVASTATIN 10 MG TAB PO SCH (08:52)
[2020-05-26] MEDS: PREGABALIN 100 MG CAP (LYRICA) PO SCH (08:52)
[2020-05-26] MEDS: VITAMIN D 1,000 INTERNATIONAL UNITS TABLET PO SCH (08:52)
[2020-05-26] MEDS: VITAMIN E 400 INTERNATIONAL UNITS CAP PO SCH (08:52)
[2020-05-26] MEDS: haloperidoL 5 MG TAB PO SCH (08:52)
[2020-05-26] MEDS: LACTULOSE 20 GM/30 ML SYRUP UD PO SCH (08:53)
[2020-05-26] MEDS: ANALGESIC BALM CRM 120 GM TOP SCH (08:55)
[2020-05-26 08:57] VITALS: BP 127/71
[2020-05-26] MEDS: lisinopriL 5 MG TAB PO SCH (08:57)
[2020-05-26] MEDS ORDERED: SERTRALINE 100 MG TAB PO SCH (09:00)
[2020-05-28] MEDS ORDERED: LEVOTHYROXINE 25MCG TABLET (0.025MG) ONE ×2 (05:36→11:30)
[2020-05-28] MEDS ORDERED: SERTRALINE 100 MG TAB ONE (09:22)
[2020-05-28] MEDS ORDERED: VITAMIN E 400 INTERNATIONAL UNITS CAP ONE ×2 (09:22→11:30)
[2020-05-28] MEDS ORDERED: ASPIRIN 81 MG ENTERIC TAB ONE (09:22)
[2020-05-28] MEDS ORDERED: lisinopriL 5 MG TAB ONE (09:22)
[2020-05-28] MEDS ORDERED: ATORVASTATIN 10 MG TAB ONE (09:22)
[2020-05-28] MEDS ORDERED: haloperidoL 5 MG TAB ONE (09:22)
[2020-05-28] MEDS ORDERED: VITAMIN D 1,000 INTERNATIONAL UNITS TABLET ONE (09:22)
[2020-05-28] MEDS ORDERED: PREGABALIN 100 MG CAP (LYRICA) ONE ×2 (09:22→20:58)
[2020-05-28] MEDS ORDERED: DOCUSATE SODIUM 100 MG CAP ONE (09:22)
[2020-05-28] MEDS ORDERED: LACTULOSE 20 GM/30 ML SYRUP UD ONE ×2 (09:22→11:30)
[2020-05-28] MEDS ORDERED: MAGNESIUM OXIDE 400 MG TAB (MAG-OX) ONE ×2 (09:22→20:58)
[2020-05-28] MEDS ORDERED: SERTRALINE 100 MG TAB As Ordered ONE (09:23)
[2020-05-28] MEDS ORDERED: ANALGESIC BALM CRM 120 GM ONE (10:00)
[2020-05-28] MEDS ORDERED: TRIHEXYPHENIDYL 2 MG TAB ONE ×2 (11:30→20:58)
[2020-05-28] MEDS ORDERED: ACETAMINOPHEN TAB 650MG DOSE (2X325MG) ONE (18:07)
[2020-05-28] MEDS ORDERED: zolPIDEM TARTRATE 5 MG TAB ONE (20:58)
[2020-05-28] MEDS ORDERED: LORazepam 0.5 MG TAB ONE (20:58)
[2020-05-28] MEDS ORDERED: cloZAPine 100 MG TAB (S0136) ONE (20:58)
[2020-05-29] MEDS ORDERED: SERTRALINE 100 MG TAB ONE (03:14)
[2020-05-29] MEDS ORDERED: VITAMIN D 1,000 INTERNATIONAL UNITS TABLET ONE (03:14)
[2020-05-29] MEDS ORDERED: PREGABALIN 100 MG CAP (LYRICA) ONE ×2 (03:14→11:39)
[2020-05-29] MEDS ORDERED: DOCUSATE SODIUM 100 MG CAP ONE (03:14)
[2020-05-29] MEDS ORDERED: haloperidoL 5 MG TAB ONE (03:14)
[2020-05-29] MEDS ORDERED: MAGNESIUM OXIDE 400 MG TAB (MAG-OX) ONE ×2 (03:14→11:39)
[2020-05-29] MEDS ORDERED: ASPIRIN 81 MG ENTERIC TAB ONE (03:14)
[2020-05-29] MEDS ORDERED: VITAMIN E 400 INTERNATIONAL UNITS CAP ONE (03:14)
[2020-05-29] MEDS ORDERED: ATORVASTATIN 10 MG TAB ONE (03:14)
[2020-05-29] MEDS ORDERED: LEVOTHYROXINE 25MCG TABLET (0.025MG) ONE (03:14)
[2020-05-29] MEDS ORDERED: ACETAMINOPHEN TAB 650MG DOSE (2X325MG) ONE ×2 (03:14→11:39)
[2020-05-29] MEDS ORDERED: lisinopriL 5 MG TAB ONE (03:14)
[2020-05-29] MEDS ORDERED: LORazepam 0.5 MG TAB ONE ×2 (08:32→11:39)
[2020-05-29] MEDS ORDERED: SERTRALINE 100 MG TAB As Ordered ONE (10:26)
[2020-05-29] MEDS ORDERED: cloZAPine 100 MG TAB (S0136) ONE (11:39)
[2020-05-29] MEDS ORDERED: TRIHEXYPHENIDYL 2 MG TAB ONE (11:39)
[2020-05-29] MEDS ORDERED: zolPIDEM TARTRATE 5 MG TAB ONE (11:39)
[2020-05-29] MEDS ORDERED: ANALGESIC BALM CRM 120 GM ONE (11:39)
[2020-05-30] MEDS ORDERED: MAGNESIUM OXIDE 400 MG TAB (MAG-OX) ONE ×2 (05:09→09:31)
[2020-05-30] MEDS ORDERED: zolPIDEM TARTRATE 5 MG TAB ONE (05:09)
[2020-05-30] MEDS ORDERED: OLANZapine ORAL DISINTEGRATING TAB 5MG ONE (05:09)
[2020-05-30] MEDS ORDERED: ANALGESIC BALM CRM 120 GM ONE ×2 (05:09)
[2020-05-30] MEDS ORDERED: ACETAMINOPHEN TAB 650MG DOSE (2X325MG) ONE ×2 (05:09→09:31)
[2020-05-30] MEDS ORDERED: cloZAPine 100 MG TAB (S0136) ONE (05:09)
[2020-05-30] MEDS ORDERED: TRIHEXYPHENIDYL 2 MG TAB ONE (05:09)
[2020-05-30] MEDS ORDERED: PREGABALIN 100 MG CAP (LYRICA) ONE ×2 (05:09→06:51)
[2020-05-30] MEDS ORDERED: LORazepam 0.5 MG TAB ONE (05:09)
[2020-05-30] MEDS ORDERED: ASPIRIN 81 MG ENTERIC TAB ONE (06:51)
[2020-05-30] MEDS ORDERED: VITAMIN E 400 INTERNATIONAL UNITS CAP ONE (06:51)
[2020-05-30] MEDS ORDERED: VITAMIN D 1,000 INTERNATIONAL UNITS TABLET ONE (06:51)
[2020-05-30] MEDS ORDERED: haloperidoL 5 MG TAB ONE (06:51)
[2020-05-30] MEDS ORDERED: LEVOTHYROXINE 25MCG TABLET (0.025MG) ONE (06:51)
[2020-05-30] MEDS ORDERED: ATORVASTATIN 10 MG TAB ONE (06:51)
[2020-05-30] MEDS ORDERED: lisinopriL 5 MG TAB ONE (06:51)
[2020-05-30] MEDS ORDERED: LACTULOSE 20 GM/30 ML SYRUP UD ONE ×2 (06:51→09:31)
[2020-05-30] MEDS ORDERED: SERTRALINE 100 MG TAB ONE (06:51)
[2020-05-30] MEDS ORDERED: SERTRALINE 100 MG TAB As Ordered ONE (09:31)
[2020-05-30] MEDS ORDERED: DOCUSATE SODIUM 100 MG CAP ONE (09:31)
[2020-05-31] MEDS ORDERED: ACETAMINOPHEN TAB 650MG DOSE (2X325MG) ONE (01:57)
[2020-05-31] MEDS ORDERED: lisinopriL 10 MG TAB ONE (08:57)
[2020-05-31] MEDS ORDERED: lisinopriL 10 MG TAB As Ordered ONE (08:57)
[2020-05-31] MEDS ORDERED: SERTRALINE 100 MG TAB ONE (08:58)
[2020-05-31] MEDS ORDERED: SERTRALINE 100 MG TAB As Ordered ONE (08:58)
[2020-05-31] MEDS ORDERED: LORazepam 0.5 MG TAB ONE ×2 (13:12→19:59)
[2020-05-31] MEDS ORDERED: MAGNESIUM OXIDE 400 MG TAB (MAG-OX) ONE (19:59)
[2020-05-31] MEDS ORDERED: cloZAPine 100 MG TAB (S0136) ONE (19:59)
[2020-05-31] MEDS ORDERED: PREGABALIN 100 MG CAP (LYRICA) ONE (19:59)
[2020-05-31] MEDS ORDERED: zolPIDEM TARTRATE 5 MG TAB ONE (19:59)
[2020-06-01] MEDS ORDERED: ACETAMINOPHEN TAB 650MG DOSE (2X325MG) ONE (04:51)
[2020-06-01] MEDS ORDERED: LEVOTHYROXINE 25MCG TABLET (0.025MG) ONE (06:03)
[2020-06-01] MEDS ORDERED: ATORVASTATIN 10 MG TAB ONE (08:49)
[2020-06-01] MEDS ORDERED: VITAMIN D 1,000 INTERNATIONAL UNITS TABLET ONE (08:49)
[2020-06-01] MEDS ORDERED: VITAMIN E 400 INTERNATIONAL UNITS CAP ONE (08:49)
[2020-06-01] MEDS ORDERED: lisinopriL 5 MG TAB ONE (08:50)
[2020-06-01] MEDS ORDERED: ASPIRIN 81 MG ENTERIC TAB ONE (08:50)
[2020-06-01] MEDS ORDERED: SERTRALINE 100 MG TAB ONE (08:50)
[2020-06-01] MEDS ORDERED: haloperidoL 5 MG TAB ONE (08:50)
[2020-06-01] MEDS ORDERED: SERTRALINE 100 MG TAB As Ordered ONE (08:50)
[2020-06-01] MEDS ORDERED: PREGABALIN 100 MG CAP (LYRICA) ONE (08:51)
[2020-06-01] MEDS ORDERED: MAGNESIUM OXIDE 400 MG TAB (MAG-OX) ONE (08:51)
[2020-06-01] MEDS ORDERED: DOCUSATE SODIUM 100 MG CAP ONE (08:51)
[2020-06-01] MEDS ORDERED: OLANZapine ORAL DISINTEGRATING TAB 5MG ONE (09:53)
[2020-06-01] MEDS ORDERED: LACTULOSE 20 GM/30 ML SYRUP UD ONE (13:32)
[2020-07-06 13:45] LABS: CLOZAPINE 1 SEE SEPARATE REPORT
== END 2020-06-01 13:50 | disposition home or self-care (01) | DRG 885 ==
LOC: M ED 19:35 → M ED INP 05-22 01:53 → M PSY 05-22 02:54
PROVIDERS: ADMIT Psychiatry & Neurology Psychiatry; ATTEND Psychiatry & Neurology Addiction Medicine
DX: F20.0 Paranoid schizophrenia (principal); R45.851 Suicidal ideations; R45.850 Homicidal ideations; Z88.0 Allergy status to penicillin; Z88.2 Allergy status to sulfonamides; N18.3 Chronic kidney disease, stage 3 (moderate); K21.9 Gastro-esophageal reflux disease without esophagitis; E55.9 Vitamin D deficiency, unspecified; E11.9 Type 2 diabetes mellitus without complications; G40.909 Epilepsy, unspecified, not intractable, without status epilepticus; I12.9 Hypertensive chronic kidney disease with stage 1 through stage 4 chronic kidney disease, or unspecified chronic kidney disease; E78.5 Hyperlipidemia, unspecified; Z87.891 Personal history of nicotine dependence; E03.9 Hypothyroidism, unspecified

== ENCOUNTER → 2020-06-14 | Outpatient (REF) | payer MEDICARE, MEDICAID ==
[~2020-06-14] MED LIST changes: +ATOR1TAB19 PO; +CLOZ200T PO; +D31000TA2 PO; +MAG400TA PO; -PANT20TA2 PO; +PANT20TA6 PO; +PANT40TA29 PO; -PANT40TA3 PO; +PREG100C PO; +VITA-259 PO; +VITA200010; +VITACAP8 PO
[2020-07-17 15:40] LABS: HEMATOCRIT 38.3 % (36.0-47.0); HEMOGLOBIN 12.2 g/dl (12.0-15.5); LYMPH % 29.1 % (24.0-44.0); MEAN CORPUSCULAR HEMOGLOBIN 27.2 pg (27.0-33.0); MEAN CORPUSCULAR HGB CONC 31.9 g/dl (32.0-36.5); MEAN CORPUSCULAR VOLUME 85.5 fl (80.0-96.0); MONO # 0.6 10^3/uL (0.0-0.8); NEUTROPHILS # 4.3 10^3/uL (1.5-8.5); NEUTROPHILS % 62.8 % (36.0-66.0); PLATELET COUNT, AUTOMATED 228 10^3/uL (150-450); RED BLOOD COUNT 4.48 10^6/uL (4.00-5.40); WHITE BLOOD COUNT 6.9 10^3/uL (4.0-10.0)
[2020-07-25 08:35] LABS: CLOZAPINE 1 SEE SEPARATE REPORT
[2020-07-29 17:01] LABS: ALBUMIN 4.1 GM/DL (3.2-5.2); ALT/SGPT 21 U/L (12-78); BILIRUBIN,DIRECT < 0.1 MG/DL (0.0-0.2); BILIRUBIN,TOTAL 0.3 MG/DL (0.2-1.0); BLOOD UREA NITROGEN 21 MG/DL (7-18); CALCIUM LEVEL 9.4 MG/DL (8.5-10.1); CARBON DIOXIDE LEVEL 27 MEQ/L (21-32); CHLORIDE LEVEL 105 MEQ/L (98-107); CHOLESTEROL LEVEL 189 MG/DL (<200); CHOLESTEROL RISK RATIO 3.375 (<5); CREATININE FOR GFR 1.02 MG/DL (0.55-1.30); GLUCOSE, FASTING 100 MG/DL (70-100); HDL CHOLESTEROL 56 MG/DL (>40); LDL CHOLESTEROL 110 MG/DL (<100); NON-HDL-C 133 MG/DL; PROLACTIN 19.6 NG/ML; SODIUM LEVEL 138 MEQ/L (136-145); THYROID STIMULATING HORMONE 0.432 uIU/ML (0.358-3.740); TOTAL 25(OH) VITAMIN D 38.1 NG/ML (30.0-100.0); TOTAL PROTEIN 7.2 GM/DL (6.4-8.2); TRIGLYCERIDES LEVEL 116 MG/DL (<150)
[2020-07-29 17:02] LABS: HEMOGLOBIN A1c 5.3 %
== END ==
LOC: M LABDRAWC 13:21
PROVIDERS: ATTEND Nurse Practitioner Psychiatric/Mental Health
DX: F25.1 Schizoaffective disorder, depressive type (principal); Z51.81 Encounter for therapeutic drug level monitoring; Z13.9 Encounter for screening, unspecified; E78.00 Pure hypercholesterolemia, unspecified

== ENCOUNTER → 2020-06-30 | Outpatient (CLI) | payer MEDICARE, MEDICAID | LOC: M PAIN 10:42 | PROVIDERS: ATTEND Nurse Practitioner Family | DX: M48.07 Spinal stenosis, lumbosacral region (principal) ==

== ENCOUNTER → 2020-09-02 | Outpatient (CLI) | payer MEDICARE, MEDICAID ==
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
== END ==
LOC: M PAIN 13:45
PROVIDERS: ATTEND Nurse Practitioner Family
DX: M79.7 Fibromyalgia (principal); M47.27 Other spondylosis with radiculopathy, lumbosacral region; E11.9 Type 2 diabetes mellitus without complications; I10 Essential (primary) hypertension; E03.9 Hypothyroidism, unspecified; Z86.59 Personal history of other mental and behavioral disorders; Z87.891 Personal history of nicotine dependence; Z88.0 Allergy status to penicillin; Z88.2 Allergy status to sulfonamides; Z88.8 Allergy status to other drugs, medicaments and biological substances; Z91.011 Allergy to milk products; Z79.82 Long term (current) use of aspirin; Z79.899 Other long term (current) drug therapy

== ENCOUNTER → 2020-11-07 | Outpatient (CLI) | payer MEDICARE, MEDICAID ==
[~2020-11-07] MED LIST changes: -LISI-542 PO; +LISI-898 PO; -MAG400TA PO; +MAGN400T35 PO
--- NOTE | 2020-11-12 11:51 | REP ---
INDICATION: DIARRHEA, UNSPECIFIED. COMPARISON: None. TECHNIQUE: Two supine views of the abdomen and pelvis FINDINGS: Bowel gas pattern is nonspecific. Surgical clips are identified in the left upper quadrant and left mid abdomen. No residual Sitz markers are identified. Skeletal structures are intact. IMPRESSION: Nonspecific bowel gas pattern. No residual Sitz markers identified. <Electronically signed by Abdiel Pichardo > 11/12/20 4012
== END ==
LOC: M RAD 10:28
PROVIDERS: ATTEND Internal Medicine Gastroenterology
DX: R19.7 Diarrhea, unspecified (principal)

== ENCOUNTER → 2020-12-02 | Outpatient (CLI) | payer MEDICARE, MEDICAID ==
[~2020-12-02] MED LIST changes: +LISI-542 PO; -LISI-898 PO; +MAG400TA PO; -MAGN400T35 PO
--- NOTE | 2020-12-07 05:45 | ECWPNPC ---
PATIENT NAME: JUAN KELSEY : 1960 GENDER: FEMALE VISIT DATE: 12/02/2020 DISCHARGE DATE: 12/02/20 1446 VISIT LOCKED DATE TIME: PHYSICIAN: CONRAD BONE RESOURCE: CONRAD BONE REASON FOR APPOINTMENT 1. MED MANAGEMENT/ LBP HISTORY OF PRESENT ILLNESS GENERAL: HERE FOR FOLLOW-UP OF PERSISTENT LOW BACK PAIN. CURRENTLY USING LYRICA 100 MG TWICE A DAY. STATES THAT SHE IS IN A LOT OF PAIN. PAIN IS ACROSS HER BACK AND RADIATES INTO BOTH LOWER EXTREMITIES. PAIN IS WORSE WHEN GOING FROM SITTING TO STANDING. REVIEWED MRI OF LUMBOSACRAL SPINE. SHOWING LUMBOSACRAL SPONDYLOSIS. DISCUSSED TRYING INJECTION THERAPY TO INCLUDE LUMBAR THERAPEUTIC FACET BLOCK. PATIENT APPEARS TO UNDERSTAND AND WOULD LIKE TO TRY INJECTIONS. -. FALL RISK SCREENING: SCREENING :TWO OR MORE FALLS WITHOUT INJURY IN THE PAST YEAR PAIN SCREENING: PATIENT HAS A COMPLAINT OF ACUTE OR CHRONIC PAIN :YES LOCATION OF PAIN:LEG(S) INTENSITY OF PAIN (SCALE OF 1 TO 10):9 WHAT DOES YOUR PAIN FEEL LIKE:SHARP, STABBING DURATION:CONTINOUS, CONSTANT PAIN IS INCREASED BY: NOTHING PAIN IS DECREASED BY: NOTHING TREATMENT/MEDICATIONS USED TO MANAGE PAIN:OPIOIDS LEVEL OF RELIEF FROM PAIN TREATMENTS IN THE PAST:0% PAIN HAS INTERFERED WITH THE FOLLOWING:BATHING/DRESSING, WALKING ABILITY, HOUSEWORK, TRANSPORTATION, TOILETING NURSING NOTE: -. PAIN CENTER INTAKE QUESTIONS: DO YOU HAVE A HISTORY OF MRSA? :NO DO YOU TAKE A BLOOD THINNERS? :NO DO YOU HAVE ANY BLEEDING DISORDERS? :NO ANY NEW NUMBNESS OR WEAKNESS IN YOUR LEGS OR ARMS? :NO ANY PACEMAKER,DEFIBRILLATOR, OR DORSAL COLUMN STIMULATOR? :NO DO YOU HAVE ANY RASHES OR OPEN SORES? :NO ARE YOU ALLERGIC TO IV DYE? :NO ARE YOU DIABETIC? :YES ANY NEW PROBLEMS WITH YOUR MEDICATIONS? :NO HAVE YOU RECEIVED A VACCINE IN THE PAST 30 DAYS? :YES IF SO WHAT VACCINE AND WHEN? COVID VACCINE LAST WEEK DO YOU PLAN TO RECEIVE A VACCINE IN THE NEXT 21 DAYS? :NO DO YOU NEED ANY PRESCRIPTION? :YES D[facility] PT ASKING FOR NEW SCRIPT FOR MOTRIN DO YOU TAKE ANY IMMUNOSUPPRESSIVE MEDICATIONS? :NO IS THERE A CHANCE YOU COULD BE ? :NO ARE YOU BREAST FEEDING? :NO CURRENT MEDICATIONS TAKING HALOPERIDOL 5 MG TABLET 1 TABLET ORALLY TWICE A DAY TAKING LEVOTHYROXINE SODIUM 25 MCG TABLET 1 TABLET IN THE MORNING ON AN EMPTY STOMACH ORALLY ONCE A DAY TAKING LISINOPRIL 5 MG TABLET 1 TABLET ORALLY ONCE A DAY TAKING ATIVAN 0.5 MG TABLET 1 TABLET NEEDED ORALLY BID TAKING OXYBUTYNIN CHLORIDE 5 MG TABLET 1 TABLET ORALLY DAILY TAKING SERTRALINE HCL 100 MG TABLET 2 TABLETS ORALLY ONCE A DAY TAKING TRIHEXYPHENIDYL HCL 2 MG TABLET 1 TABLET ORALLY BEFORE BEDTIME TAKING AMBIEN 5 MG TABLET 1 TABLET AT BEDTIME ORALLY ONCE A DAY TAKING CLOZARIL 100 MG TABLET 1 TABLET IN AM, 2 TABLETS AT BEDTIME ORALLY BID TAKING CHOLECALCIFEROL 50 MCG (1999) CAPSULE 1 CAPSULE ORALLY ONCE A DAY TAKING ASPIRIN 81 81 MG TABLET DELAYED RELEASE 1 TABLET ORALLY ONCE A DAY TAKING ATORVASTATIN CALCIUM 10 MG TABLET 1 TABLET ORALLY BEFORE BEDTIME TAKING ACETAMINOPHEN 325 MG TABLET 1 TABLET NEEDED ORALLY BID TAKING LYRICA 100 MG CAPSULE 1 CAPSULE ORALLY Q8H MDD3 NOT-TAKING LACTULOSE 10 GM/15ML SOLUTION 15 ML ORALLY ONCE A DAY NOT-TAKING MELOXICAM 15 MG TABLET 1 TABLET ORALLY ONCE A DAY NOT-TAKING MAGNESIUM 100 MG TABLET 4 TABLETS WITH A MEAL ORALLY ONCE A DAY NOT-TAKING MAGNESIUM OXIDE 400 240 MG PACKET DIRECTED ORALLY NOT-TAKING CLOZAPINE 200 MG TABLET 1 TABLET ORALLY ONCE A DAY NOT-TAKING ATORVASTATIN CALCIUM 10 MG TABLET 1 TABLET ORALLY ONCE A DAY NOT-TAKING METFORMIN HCL 500 MG TABLET 1 TABLET WITH A MEAL ORALLY ONCE A DAY NOT-TAKING COLACE 100 MG CAPSULE 2 CAPSULES ORALLY DAILY NEEDED NOT-TAKING GABAPENTIN 100 MG CAPSULE 2 CAPSULE ORALLY TID X7DAYS,BID X7DAYS,1 DAILY X7 DAYS THEN STOP NOT-TAKING CLOZARIL 25 MG TABLET 1 TABLET ORALLY ONCE A DAY NOT-TAKING LIPITOR 10 MG TABLET 1 TABLET ORALLY ONCE A DAY NOT-TAKING NITROFURANTOIN MACROCRYSTAL 100 MG CAPSULE 1 CAPSULE WITH FOOD OR MILK ORALLY BID MEDICATION LIST REVIEWED AND RECONCILED WITH THE PATIENT PAST MEDICAL HISTORY DIABETES BORDERLINE HTN HIGH CHOLESTEROL KIDNEY PROBLEMS ANXIETY DEPRESSION PSYCHOSIS PARANOID SCHIZOPHRENIA THYROID DISORDER? GLAUCOMA ALLERGIES PENICILLIN (FOR ALLERGIES USE ONLY): RASH - ALLERGY SULFA (FOR ALLERGY USE ONLY): NAUSEA/VOMITING - ALLERGY LACTOSE: NAUSEA/VOMITING - ALLERGY MELLARIL: ALLERGY SOCIAL HISTORY GENERAL: TOBACCO USE ARE YOU A:FORMER SMOKER HOW LONG HAS IT BEEN SINCE YOU LAST SMOKED?> 10 YEARS LATEX QUESTIONNAIRE LATEX ALLERGY : HAVE YOU EVER DEVELOPED ANY TYPE OF REACTION AFTER HANDLING LATEX PRODUCTS SUCH RUBBER GLOVES, CONDOMS, DIAPHRAGMS, BALLOONS, SOCKS, OR UNDERWEAR?NO LATEX ALLERGY : HAVE YOU EVER DEVELOPED ANY TYPE OF REACTION DURING OR AFTER DENTAL APPOINTMENT, VAGINAL/RECTAL EXAMINATION, SURGICAL PROCEDURE, OR ANY OTHER EXPOSURE?NO DATE ASKED : 09/02/2020 LATEX RISK : HAVE YOU EVER HAD ANY DIFFICULTY BREATHING OR HIVES AFTER EATING OR HANDLING ANY FRUITS, OR VEGETABLES; SUCH KIWI, BANANAS, STONE FRUITS, OR CHESTNUTSNO LATEX RISK : DO YOU HAVE A PREVIOUS PERSONAL HISTORY OF MORE THAN NINE SURGERIES, SPINA BIFIDA, OR REPEATED CATHERIZATIONS? NO LATEX RISK : ARE YOU FREQUENTLY EXPOSED TO LATEX PRODUCTS IN YOUR OCCUPATION?NO ALCOHOL SCREENING DID YOU HAVE A DRINK CONTAINING ALCOHOL IN THE PAST YEAR?NO POINTS0 INTERPRETATIONNEGATIVE RECREATIONAL DRUG USE DRUG USE?NO CAFFEINE CAFFEINE USE?YES SODA AND COFFEE LANGUAGE LANGUAGES SPOKEN:BENINESE LEARNING BARRIERS / SPECIAL NEEDS BARRIERS TO LEARNING?YES COMMENTSDOCUMENTED IN NOTES SECTION> SEE BELOW HEARING IMPAIRED?NO VISION IMPAIRED?NO COGNITIVELY IMPAIRED?NO READINESS TO LEARN?YES LEARNING PREFERENCES?YES :TAPES/VIDEOS, BOOKLETS, HANDOUTS LEARNING CAPABILITIES PRESENT?YES EMOTIONAL BARRIERS?YES COMMENTSDOCUMENTED IN NOTES SECTION> PATIENT HAS HISTORY OF PSYCHOSIS, DEPRESSION, ANXIETY, AND PARANOID SCHIZOPHRENIA SPECIAL DEVICES?YES :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 DIET: NO LACTOSE, REGULAR. EXERCISE: WALKS, DAILY - WHEN WEATHER PERMITS. MARITAL STATUS: SINGLE. OTHERS AT HOME: [facility] IN [place]. TODAY'S VISIT 03/23/20, PATIENT DESCRIBES PAIN : ACHING, HAVE IT ALL THE TIME, STABBING, FROM 0-10, WHAT LEVEL IS YOUR PAIN TODAY? 10, PRECIPITATING FACTORS ACTIVITY, ALLEVIATING FACTORS STRETCHES AND WALKING, IMPACT ON FUNCTION YES. - WAS THE PROVIDER NOTIFIED OF ANY PERTINENT INFO?YES HAS THE PATIENT BEEN EDUCATED REGARDING HIS/HER PLAN OF CARE?YES HAS THE PATIENT BEEN EDUCATED REGARDING PAIN, THE RISK FOR PAIN, THE IMPORTANCE OF EFFECTIVE PAIN MANAGEMENT, AND THE PAIN ASSESSMENT PROCESS?YES ADVANCE DIRECTIVE ADVANCE DIRECTIVE DISCUSSED WITH PATIENT:YES PATIENT HAS NO HCP, STATED SHE WOULD LIKE TO LOOK INTO GETTING ONE. INFORMED PATIENT THAT SHE COULD GET THE INFORMATION FROM US AT HER APPOINTMENT AND BRING IT HOME TO LOOK OVER AND FILL OUT. ALSO INFORMED HER THAT WE COULD HELP HER WITH THE FORM HERE IF SHE WOULD LIKE. REVIEW OF SYSTEMS CONSTITUTIONAL: ANY RECENT FEVER NO . CHILLS NO . WEIGHT CHANGE OF UNKNOWN REASONS NO . GASTROENTEROLOGY: NEW UNEXPLAINABLE CHANGES IN BOWEL CONTROL NO . CONSTIPATION NO . GENITOURINARY: ANY NEW CHANGE IN BLADDER CONTROL? NO . NEUROLOGY: NEW ONSET DIZZINESS OR NEUROLOGICAL CHANGES NOT MENTIONED NO . NEW NUMBNESS OR PAIN PATTERNS NOT MENTIONED AND PERTINENT TO TODAY'S VISIT NO . CARDIOLOGY: NEW CHEST PRESSURE NO . NEW CHEST PAIN NO . RESPIRATORY: UNEXPLAINABLE COUGH NO . NEW SHORTNESS OF BREATH NO . VITAL SIGNS WT 239 LBS, HT 65.5 IN, BMI 39.16 INDEX, BP 134/70 MM HG, HR 103 /MIN, RR 16 /MIN, TEMP 98.6 F, OXYGEN SAT % 97, SAFE IN ENV? (Y/N) Y, REVIEWED BY: ARTURO. EXAMINATION GENERAL EXAMINATION: GENERAL AWAKE,ALERT ,PLEAASANT . PSYCH AFFECT NORMAL . LUNGS: LUNG TREVIZO ARE CLEAR TO AUSCULTATION BILATERALLY. GOOD MOVEMENT OF AIR . HEART: S1, S2 IN A REGULAR RATE AND RHYTHM. NO SIGNIFICANT MURMURS, RUBS OR GALLOPS NOTED . LUMBAR: PALPATION: + FOR PAIN OVER L/S SPINE. + FOR PAIN OVER L/S PARASPINALS .SPECIFIC POINT TENDERNESS OVER BILAT L4/5-L5/S1 LUMBAR FACETS WITH FACET LOADING. NEUROLOGIC EXAM: NORMAL SENSATION LIGHT TOUCH BILAT. LOWER EXTREMITIES . DIAGNOSTIC TESTS REVIEWEDMRI L/S SPINE . 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 DISPOSITION & COMMUNICATION FOLLOW UP POST PROCEDURE (REASON: BILATERAL LUMBAR THERAPEUTIC FACET BLOCK L4-5, L5-S1) ELECTRONICALLY SIGNED BY BA MONTESINOS ON 12/06/2020 AT 01:11 PM EST DISCLAIMER : THIS IS A VISIT SUMMARY EXTRACTED FROM THE [employer] CHART. IT IS NOT A COPY OF THE [employer] PROGRESS NOTE. SHAR
== END ==
LOC: M PAIN 13:45
PROVIDERS: ATTEND Nurse Practitioner Family
DX: M47.27 Other spondylosis with radiculopathy, lumbosacral region (principal); E11.9 Type 2 diabetes mellitus without complications; Z86.59 Personal history of other mental and behavioral disorders; Z87.891 Personal history of nicotine dependence; Z88.0 Allergy status to penicillin; Z88.2 Allergy status to sulfonamides; Z88.8 Allergy status to other drugs, medicaments and biological substances; Z91.011 Allergy to milk products; Z79.82 Long term (current) use of aspirin; Z79.899 Other long term (current) drug therapy

== ENCOUNTER → 2020-12-07 | Outpatient (CLI) | payer MEDICARE, MEDICAID ==
[~2020-12-07] MED LIST changes: -LISI-542 PO; +LISI-898 PO; -MAG400TA PO; +MAGN400T35 PO
== END ==
LOC: M LABSMTC 10:15
PROVIDERS: ATTEND Anesthesiology
DX: Z01.812 Encounter for preprocedural laboratory examination (principal); Z20.822 Contact with and (suspected) exposure to COVID-19

== ENCOUNTER 2020-12-12 08:20 | Day surgery (SDC) | payer MEDICARE, MEDICAID ==
[~2020-12-12] VITALS: Ht 165.1 cm; Wt 106.6 kg
[~2020-12-12 08:20] MED LIST changes: +LIDOCAINE 2% 100MG/5ML SDV (FOR ANES.) As Ordered ONE; +NS 1,000 ML IV ONE; +propofoL 200 MG/20 ML VIAL As Ordered ONE
--- NOTE | 2020-12-12 10:10 | ROOR ---
Patient Name: Jennifer Bustamante Procedure Date: 12/12/2020 9:33 AM Date of : 1960 Age: 60 Room: [facility] Gender: Female Note Status: Finalized Procedure: Colonoscopy Indications: Change in bowel habits Providers: Louis OSORIO MD Referring MD: Luh Lopez Requesting Provider: Medicines: Monitored Anesthesia Care Complications: No immediate complications. Procedure: Pre-Anesthesia Assessment: - The heart rate, respiratory rate, oxygen saturations, blood pressure, adequacy of pulmonary ventilation, and response to care were monitored throughout the procedure. The Colonoscope was introduced through the anus and advanced to 10 cm into the ileum. The colonoscopy was performed without difficulty. The patient tolerated the procedure well. The quality of the bowel preparation was good. Findings: The perianal and digital rectal examinations were normal. Internal hemorrhoids were found during retroflexion. The hemorrhoids were moderate. The colon (entire examined portion) appeared normal. The terminal ileum appeared normal. Biopsies for histology were taken with a cold forceps for evaluation of microscopic colitis. Impression: - Internal hemorrhoids. - The entire examined colon is otherwise normal. - The examined portion of the ileum was normal. - Biopsies were taken with a cold forceps for evaluation of microscopic colitis. Recommendation: - Use fiber, for example Citrucel, Fibercon, Konsyl or Metamucil. - Telephone endoscopist for pathology results in 2 weeks. Procedure Code(s): --- Professional --- 60628, Colonoscopy, flexible; with biopsy, single or multiple Diagnosis Code(s): --- Professional --- R19.4, Change in bowel habit K64.8, Other hemorrhoids CPT copyright 2019 [employer]. All rights reserved. The codes documented in this report are preliminary and upon mechanical design drafter review may be revised to meet current compliance requirements. Louis Osorio MD Louis OSORIO MD 12/12/2020 10:10:46 AM Electronically signed by Louis OSORIO MD Number of Addenda: 0 Note Initiated On: 12/12/2020 9:33 AM Estimated Blood Loss: Estimated blood loss: none.
[2020-12-12 10:25] VITALS: BP 157/79
== END 2020-12-12 14:00 | disposition home or self-care (01) ==
LOC: M OPP 08:20
PROVIDERS: ATTEND Internal Medicine Gastroenterology
DX: R19.4 Change in bowel habit (principal); D12.6 Benign neoplasm of colon, unspecified; K64.8 Other hemorrhoids; I10 Essential (primary) hypertension; E78.5 Hyperlipidemia, unspecified; R60.0 Localized edema; E11.9 Type 2 diabetes mellitus without complications; E03.9 Hypothyroidism, unspecified; M19.90 Unspecified osteoarthritis, unspecified site; F41.9 Anxiety disorder, unspecified; F32.9 Major depressive disorder, single episode, unspecified; F25.1 Schizoaffective disorder, depressive type; F43.10 Post-traumatic stress disorder, unspecified; G40.909 Epilepsy, unspecified, not intractable, without status epilepticus; K21.9 Gastro-esophageal reflux disease without esophagitis; Z88.0 Allergy status to penicillin; Z88.2 Allergy status to sulfonamides; Z88.8 Allergy status to other drugs, medicaments and biological substances; Z79.82 Long term (current) use of aspirin; Z81.8 Family history of other mental and behavioral disorders; Z82.69 Family history of other diseases of the musculoskeletal system and connective tissue; Z83.3 Family history of diabetes mellitus

== ENCOUNTER → 2020-12-14 | Outpatient (CLI) | payer MEDICARE, MEDICAID ==
[~2020-12-14] MED LIST changes: -LIDOCAINE 2% 100MG/5ML SDV (FOR ANES.) As Ordered ONE; -NS 1,000 ML IV ONE; -propofoL 200 MG/20 ML VIAL As Ordered ONE
== END ==
LOC: M LABSMTC 11:28
PROVIDERS: ATTEND Anesthesiology
DX: Z20.822 Contact with and (suspected) exposure to COVID-19 (principal)

== ENCOUNTER → 2020-12-19 | Outpatient (CLI) | payer MEDICARE, MEDICAID ==
[~2020-12-19] MED LIST changes: +ISOVUE-M 300 61% 15ML VIAL As Ordered ONE; +LIDOCAINE 1% SDV 30ML VIAL As Ordered ONE; +MIDAZOLAM INJ 2MG/2ML VIAL (J2250 PER 1MG) As Ordered ONE; +NORCO, ANEXSIA 5/325MG TABLET (HYDROcodone/ACETAMINOPHEN) As Ordered ONE; +diazePAM 10MG/2ML SYRINGE (J3360 PER 5MG) As Ordered ONE; +diazePAM 2 MG TAB As Ordered ONE; +methylPREDNISolone SUSP 40MG/ML 1ML VIAL (DEPO MEDROL) As Ordered ONE
--- NOTE | 2020-12-19 13:53 | REP ---
INDICATION: LUMBAR EPIDURAL STEROID INJECTION. COMPARISON: None. TECHNIQUE: Three fluoroscopic images provided to the pain clinic for lumbar epidural steroid injection are presented. FINDINGS: There is a needle at the L4-5 disc level just to the right of midline on the prone views. Contrast seen in the epidural space. Lateral view shows disc space narrowing at L4-5 and a few mm of anterolisthesis. IMPRESSION: Status post L4-5 lumbar epidural steroid injection as above. Fluoroscopy time: 24 seconds. <Electronically signed by Prince Rizo > 12/19/20 [id number]
--- NOTE | 2020-12-28 03:40 | ECWPNPC ---
PATIENT NAME: JUAN KELSEY : 1960 GENDER: FEMALE VISIT DATE: 12/19/2020 DISCHARGE DATE: 12/19/20 154 VISIT LOCKED DATE TIME: PHYSICIAN: MARIO JEAN MD RESOURCE: MARIO JEAN MD REASON FOR APPOINTMENT 1. LUMBAR EPIDURAL STEROID INJECTION HISTORY OF PRESENT ILLNESS GENERAL: 60-YEAR-OLD FEMALE PATIENT WITH A HISTORY OF CHRONIC LOW BACK AND LEG PAIN. THE PATIENT DESCRIBES THE PAIN ACHING AND SEVERE WITH A PAIN SCORE RANGING FROM 6-9/10 AT THE BACK WITH RADIATION TO BOTH LEGS BUT MAINLY THE RIGHT LEG. SHE IS HAVING DIFFICULTY MOVING AROUND. THIS IS AFFECTING HER ACTIVITIES SUCH CLEANING HER HOUSE. FALL RISK SCREENING: SCREENING :ONE FALL WITHOUT INJURY IN THE PAST YEAR PAIN SCREENING: PATIENT HAS A COMPLAINT OF ACUTE OR CHRONIC PAIN :YES LOCATION OF PAIN:LOW BACK INTENSITY OF PAIN (SCALE OF 1 TO 10):9 WHAT DOES YOUR PAIN FEEL LIKE:ACHING, CONTINOUS, SHARP, STABBING, THROBBING, SORE DURATION:CONTINOUS, CONSTANT PAIN IS INCREASED BY:ACTIVITIES PAIN IS DECREASED BY:USE OF PAIN MEDICATIONS, OTHERS REST NURSING NOTE: -. PAIN CENTER INTAKE QUESTIONS: DO YOU HAVE A HISTORY OF MRSA? :NO DO YOU TAKE A BLOOD THINNERS? :NO DO YOU HAVE ANY BLEEDING DISORDERS? :NO ANY NEW NUMBNESS OR WEAKNESS IN YOUR LEGS OR ARMS? :NO ANY PACEMAKER,DEFIBRILLATOR, OR DORSAL COLUMN STIMULATOR? :NO DO YOU HAVE ANY RASHES OR OPEN SORES? :NO ARE YOU ALLERGIC TO IV DYE? :NO ARE YOU DIABETIC? :YES ANY NEW PROBLEMS WITH YOUR MEDICATIONS? :NO HAVE YOU RECEIVED A VACCINE IN THE PAST 30 DAYS? :YES IF SO WHAT VACCINE AND WHEN? COVID VACCINE #2 11/29/20 DO YOU PLAN TO RECEIVE A VACCINE IN THE NEXT 21 DAYS? :NO DO YOU TAKE ANY IMMUNOSUPPRESSIVE MEDICATIONS? :NO ANY HISTORY OF SEIZURES? :YES LAST SEIZURE 2 WEEKS AGO PER PATIENT ANY HISTORY OF CARDIAC ISSUES OR EVENTS? :NO DO YOU HAVE SLEEP APNEA? :NO ANY RECENT HEAD INJURY? :NO DO YOU HAVE ANY NEW INFECTIONS? :NO IS THERE A CHANCE YOU COULD BE ? :NO ARE YOU BREAST FEEDING? :NO WHEN DID YOU LAST EAT? : 1900 12/18/20 WHEN DID YOU LAST DRINK? : 0730 WHAT DID YOU LAST DRINK? 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 : - CURRENT MEDICATIONS TAKING HALOPERIDOL 5 MG TABLET 1 TABLET ORALLY TWICE A DAY TAKING LEVOTHYROXINE SODIUM 25 MCG TABLET 1 TABLET IN THE MORNING ON AN EMPTY STOMACH ORALLY ONCE A DAY TAKING LISINOPRIL 5 MG TABLET 1 TABLET ORALLY ONCE A DAY, NOTES: 729 TAKING ATIVAN 0.5 MG TABLET 1 TABLET NEEDED ORALLY BID, NOTES: 729 TAKING OXYBUTYNIN CHLORIDE 5 MG TABLET 1 TABLET ORALLY DAILY TAKING SERTRALINE HCL 100 MG TABLET 2 TABLETS ORALLY ONCE A DAY TAKING TRIHEXYPHENIDYL HCL 2 MG TABLET 1 TABLET ORALLY BEFORE BEDTIME TAKING AMBIEN 5 MG TABLET 1/2 TABLET ORALLY TWICE A DAY, NOTES: 729 TAKING CLOZARIL 200 MG TABLET , 1 TABLETS AT BEDTIME ORALLY AT BEDTIME TAKING CHOLECALCIFEROL 50 MCG (1999) CAPSULE 1 CAPSULE ORALLY ONCE A DAY TAKING ASPIRIN 81 81 MG TABLET DELAYED RELEASE 1 TABLET ORALLY ONCE A DAY, NOTES: 729 TAKING ATORVASTATIN CALCIUM 10 MG TABLET 1 TABLET ORALLY BEFORE BEDTIME TAKING ACETAMINOPHEN 325 MG TABLET 1 TABLET NEEDED ORALLY BID TAKING LYRICA 100 MG CAPSULE 1 CAPSULE ORALLY BID MDD2, NOTES: 729 TAKING CLOZAPINE 200 MG TABLET 1 TABLET ORALLY ONCE A DAY, NOTES: 12/18/20 1900 TAKING VITAMIN E 400 UNIT TABLET 1 TABLET ORALLY ONCE A DAY, NOTES: UNSURE OF DOSE TAKING COLACE 100 MG CAPSULE 2 CAPSULES ORALLY DAILY NEEDED NOT-TAKING MOBIC 15 MG TABLET 1 TABLET ORALLY ONCE A DAY NOT-TAKING MOBIC 15 MG TABLET 1 TABLET ORALLY ONCE A DAY NOT-TAKING LACTULOSE 10 GM/15ML SOLUTION 15 ML ORALLY ONCE A DAY NOT-TAKING MELOXICAM 15 MG TABLET 1 TABLET ORALLY ONCE A DAY NOT-TAKING MAGNESIUM 100 MG TABLET 4 TABLETS WITH A MEAL ORALLY ONCE A DAY NOT-TAKING MAGNESIUM OXIDE 400 240 MG PACKET DIRECTED ORALLY NOT-TAKING METFORMIN HCL 500 MG TABLET 1 TABLET WITH A MEAL ORALLY ONCE A DAY NOT-TAKING GABAPENTIN 100 MG CAPSULE 2 CAPSULE ORALLY TID X7DAYS,BID X7DAYS,1 DAILY X7 DAYS THEN STOP NOT-TAKING NITROFURANTOIN MACROCRYSTAL 100 MG CAPSULE 1 CAPSULE WITH FOOD OR MILK ORALLY BID NOT-TAKING ATORVASTATIN CALCIUM 10 MG TABLET 1 TABLET ORALLY ONCE A DAY, NOTES: DUPLICATE NOT-TAKING CLOZARIL 25 MG TABLET 1 TABLET ORALLY ONCE A DAY, NOTES: DUPLICATE NOT-TAKING LIPITOR 10 MG TABLET 1 TABLET ORALLY ONCE A DAY, NOTES: DUPLICATE MEDICATION LIST REVIEWED AND RECONCILED WITH THE PATIENT PAST MEDICAL HISTORY DIABETES BORDERLINE HTN HIGH CHOLESTEROL KIDNEY PROBLEMS ANXIETY DEPRESSION PSYCHOSIS PARANOID SCHIZOPHRENIA THYROID DISORDER? GLAUCOMA PSEUDO-SEIZURES ALLERGIES PENICILLIN (FOR ALLERGIES USE ONLY): RASH - ALLERGY SULFA (FOR ALLERGY USE ONLY): NAUSEA/VOMITING - ALLERGY LACTOSE: NAUSEA/VOMITING - ALLERGY MELLARIL: ALLERGY SURGICAL HISTORY LEFT KIDNEY SURGERY LEFT EAR SURGERY COLONOSCOPY 12/12/20 FAMILY HISTORY FATHER: MOTHER: 2 BROTHER(S) , 2 SISTER(S) . FAMILY HISTORY UNKNOWN. SOCIAL HISTORY GENERAL: TOBACCO USE ARE YOU A:FORMER SMOKER HOW LONG HAS IT BEEN SINCE YOU LAST SMOKED?> 10 YEARS LATEX QUESTIONNAIRE LATEX ALLERGY : HAVE YOU EVER DEVELOPED ANY TYPE OF REACTION AFTER HANDLING LATEX PRODUCTS SUCH RUBBER GLOVES, CONDOMS, DIAPHRAGMS, BALLOONS, SOCKS, OR UNDERWEAR?NO LATEX ALLERGY : HAVE YOU EVER DEVELOPED ANY TYPE OF REACTION DURING OR AFTER DENTAL APPOINTMENT, VAGINAL/RECTAL EXAMINATION, SURGICAL PROCEDURE, OR ANY OTHER EXPOSURE?NO LATEX RISK : HAVE YOU EVER HAD ANY DIFFICULTY BREATHING OR HIVES AFTER EATING OR HANDLING ANY FRUITS, OR VEGETABLES; SUCH KIWI, BANANAS, STONE FRUITS, OR CHESTNUTSNO LATEX RISK : DO YOU HAVE A PREVIOUS PERSONAL HISTORY OF MORE THAN NINE SURGERIES, SPINA BIFIDA, OR REPEATED CATHERIZATIONS? NO LATEX RISK : ARE YOU FREQUENTLY EXPOSED TO LATEX PRODUCTS IN YOUR OCCUPATION?NO DATE ASKED : 12/16/2020 ALCOHOL SCREENING DID YOU HAVE A DRINK CONTAINING ALCOHOL IN THE PAST YEAR?NO POINTS0 INTERPRETATIONNEGATIVE RECREATIONAL DRUG USE DRUG USE?NO CAFFEINE CAFFEINE USE?YES SODA AND COFFEE LANGUAGE LANGUAGES SPOKEN:TURKISH LEARNING BARRIERS / SPECIAL NEEDS BARRIERS TO LEARNING?YES COMMENTSDOCUMENTED IN NOTES SECTION> SEE BELOW HEARING IMPAIRED?NO VISION IMPAIRED?NO COGNITIVELY IMPAIRED?NO READINESS TO LEARN?YES LEARNING PREFERENCES?YES :TAPES/VIDEOS, BOOKLETS, HANDOUTS LEARNING CAPABILITIES PRESENT?YES EMOTIONAL BARRIERS?YES COMMENTSDOCUMENTED IN NOTES SECTION> PATIENT HAS HISTORY OF PSYCHOSIS, DEPRESSION, ANXIETY, AND PARANOID SCHIZOPHRENIA 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 DIET: NO LACTOSE, REGULAR. EXERCISE: WALKS, DAILY - WHEN WEATHER PERMITS. MARITAL STATUS: SINGLE. OTHERS AT HOME: [facility] IN [place]. TODAY'S VISIT 03/23/20, PATIENT DESCRIBES PAIN : ACHING, HAVE IT ALL THE TIME, STABBING, FROM 0-10, WHAT LEVEL IS YOUR PAIN TODAY? 10, PRECIPITATING FACTORS ACTIVITY, ALLEVIATING FACTORS STRETCHES AND WALKING, IMPACT ON FUNCTION YES. - WAS THE PROVIDER NOTIFIED OF ANY PERTINENT INFO?YES HAS THE PATIENT BEEN EDUCATED REGARDING HIS/HER PLAN OF CARE?YES HAS THE PATIENT BEEN EDUCATED REGARDING PAIN, THE RISK FOR PAIN, THE IMPORTANCE OF EFFECTIVE PAIN MANAGEMENT, AND THE PAIN ASSESSMENT PROCESS?YES ADVANCE DIRECTIVE ADVANCE DIRECTIVE DISCUSSED WITH PATIENT:YES PATIENT HAS NO HCP, STATED SHE WOULD LIKE TO LOOK INTO GETTING ONE. INFORMED PATIENT THAT SHE COULD GET THE INFORMATION FROM US AT HER APPOINTMENT AND BRING IT HOME TO LOOK OVER AND FILL OUT. ALSO INFORMED HER THAT WE COULD HELP HER WITH THE FORM HERE IF SHE WOULD LIKE. HOSPITALIZATION/MAJOR DIAGNOSTIC PROCEDURE MENTAL HEALTH - MULTIPLE BOWEL OBSTRUCTION 2019 SURGERY RELATED SLEEP APNEW TESTING VITAL SIGNS WT 237.4 LBS, HT 65.5 IN, BMI 38.90 INDEX, BP 159/88 MM HG, HR 101 /MIN, RR 18 /MIN, TEMP 98.2 F, OXYGEN SAT % 97%, SAFE IN ENV? (Y/N) YES, NA INITIALS AW 1116, REVIEWED BY: APA. EDITH RN. EXAMINATION GENERAL EXAMINATION: THE PATIENT IS ALERT, ORIENTED TIMES THREE AND COOPERATIVE. LUNGS ARE CLEAR TO AUSCULTATION. HEART SHOWS REGULAR RHYTHM, NO MURMURS AND NO GALLOPS. THE RIGHT LEG IS WEAKER THAN THE LEFT LEG ON FLEXION AND EXTENSION. STRAIGHT LEG RAISE IS POSITIVE FOR RADICULOPATHY ON THE RIGHT AT 30 DEGREES. MRI OF THE LUMBSOACRAL SPINE DATED 12/21/2019 SHOWS SEVERE STENOSIS AT L4-L5, THICKNESS OF THE LIGAMENTUM FLAVUM, SEVERE RIGHT FORAMINAL STENOSIS. ASSESSMENTS INTERVERTEBRAL DISC DISORDERS WITH RADICULOPATHY, LUMBAR REGION - M51.16 (PRIMARY) TREATMENT INTERVERTEBRAL DISC DISORDERS WITH RADICULOPATHY, LUMBAR REGION [facility] FLUORO GUIDE SPINE INJECTION (PAIN)[id number] MEDICATION: VALIUM TAB 2MG ORALLY (DIAZEPAM)PEEWEE SILVA 12/19/2020 11:48:41 AM > VERIFIED. IBRAHIMA SHARMA 12/19/2020 11:51:06 AM > ADMINISTERED SALINE LOCKPETRAIBRAHIMA Seaman R 12/19/2020 12:02:35 PM > 22G PLACED INTO RIGHT AC ON 2ND ATTEMPT, IV FLUSHING WELL. DSD APPLIED DILEONARDO,LAUREN 12/19/2020 12:09:11 PM - LACTATED RINGERS KVO ORDERED PETRAS,IBRAHIMA R 12/19/2020 12:16:48 PM > LR RUNNING AT KVO PER ORDER. PETRAS,IBRAHIMA R 12/19/2020 1:55:18 PM > TOTAL 250 ML LR INFUSED. PETRAS,IBRAHIMA R 12/19/2020 3:25:36 PM > IV SITE DISCONTINUED. CATHETER TIP INTACT, BLEEDING CONTROLLED AND DSD APPLIED. COMPLETION OF PROCEDURAL VISIT WHEN MEETS CRITERIAPETRAS,IBRAHIMA R 12/19/2020 3:27:19 PM > CRITERIA MET MED: PAIN NORCO TABLET 5MG/325MG ORALLY HYDROCODONE/ACETAMINOPHENSYLVTARAPEEWEE L 12/19/2020 11:48:58 AM > VERIFIED. PETRAS,IBRAHIMA R 12/19/2020 11:51:22 AM > ADMINISTERED DILEONARDO,LAUREN 12/19/2020 03:27:41 PM - SECOND DOSE ORDERED PETRAS,IBRAHIMA R 12/19/2020 4:32:00 PM > VERIFIED PETRAS,IBRAHIMA R 12/19/2020 4:32:44 PM > VERIFIED @ 1412 BLANCAPEEWEE LUBIN L 12/19/2020 4:34:53 PM > ADMINISTERED AT 1413. CLINICAL NOTES: I DISCUSSED ALTERNATIVES WITH MS. KELSEY. I AM LOOKING FOR LONG LASTING PAIN RELIEF FOR THIS PATIENT. I AM PLANNING ON GOING TO L4-L5. IF THIS DOES NOT HELP, CONSIDER A TRANSFORAMINAL EPIDURAL STEROID INJECTION. DEPENDING ON THE RESULTS, THE PATIENT MAY BE A CANDIDATE FOR MILD/VERTIFLEX. SHE HAS SEVERE STENOSIS AT L4-L5, SHE IS HAVING A HARD TIME WALKING AND SHE USING A WALKER. THE PATIENT REPORTS UNDERSTANDING AND AGREES WITH THE PLAN. OTHERS NOTES: PAT COMPLETED 12/16/20 M CHIOMA ELIZABETH. PROCEDURES PAIN NURSING RECORD PROCEDURE IN ROOM 1257, PHYSICIAN IN ROOM 1312, START 1317, FINISH 1327, PHYSICIAN OUT OF ROOM 1331, OUT OF ROOM 1336, ECG OTHER SINUS TACHYCARDIA, PATIENT SHIELDED YES, SAFETY STRAP YES, PREP BETADINE BY: Matilde SHARMA RN, DRESSING TEGADERM BY: DR. JEAN LOC: PETRAS,IBRAHIMA R 12/19/2020 1:18:12 PM > 1. ALERT, ORIENTED RESP: PETRAS,IBRAHIMA R 12/19/2020 1:18:18 PM > 1. REGULAR, NO DYSPNEA COLOR: PETRAS,IBRAHIMA R 12/19/2020 1:18:22 PM > 1. PINK SKIN: PETRAS,IBRAHIMA R 12/19/2020 1:18:26 PM > 1. WARM, DRY POSITION: PETRAS,IBRAHIMA R 12/19/2020 1:18:29 PM > 1. PRONE VITALS: PETRAS,IBRAHIMA R 12/19/2020 1:01:46 PM > 193/105, 101, 18, 98% PETRAS,IBRAHIMA R 12/19/2020 1:1025 PM > 206/96, 98, 18, 98% PETRAS,IBRAHIMA R 12/19/2020 1:14:42 PM > 216/98, 98, 16, 97% PETRAS,IBRAHIMA R 12/19/2020 1:28:48 PM > 218/100, 98, 18, 97% PETRAS,IBRAHIMA R 12/19/2020 1:32:53 PM > 217/102, 99, 18, 98% PETRAS,IBRAHIMA R 12/19/2020 1:45 :02 PM > 183/107, 101, 18, 98% PETRAS,IBRAHIMA R 12/19/2020 1:50:41 PM > REPEAT MANUAL BP 182/90 PETRAS,IBRAHIMA R 12/19/2020 2:30:03 PM > POST MEDICATION REPEAT BP: 180/100 PETRAS,IBRAHIMA R 12/19/2020 2:45:35 PM > REPEAT BP 178/98 PETRAS,IBRAHIMA R 12/19/2020 3:15:54 PM > REPEAT BP 180/100 NOTES PETRAS,IBRAHIMA R 12/19/2020 2:05:16 PM > PATIENT WITH ELEVATED BP 182/90 AND PAIN POST PROCEDURE, REPORTING 10/[address] JEAN OF ELEVATED BP AND PAIN. DR. JEAN ORDERED ANOTHER DOSE OF NORCO 5/325 MG WITH REPEAT BP & PAIN SCORE IN [address] JEAN REQUESTED THAT WE CALL [facility] TO MAKE THEM AWARE OF SITUATION AND FOLLOW UP WITH THEM ONCE PATIENT IS RELEASED HOME. DAMIÁN SHARMAIL R 12/19/2020 2:13:41 PM > NORCO 5-325MG ADMINISTERED BY Jason SILVA RN AT THIS TIME. PERFORMED VIA VERBAL ORDER DUE TO SYSTEM BEING DOWN. THIS WOOL CLEANER CALLED [facility] AT THIS TIME AND NOTIFIED THEM THAT PATIENT RECIEVED ANOTHER DOSE OF NORCO 5-325MG AND THAT WE WOULD BE KEEPING HER FOR MONITORING UNTIL PAIN IS CONTROLLED AND BP HAS IMPROVED. THIS WOOL CLEANER STATED WE WOULD CALL THEM BACK ONCE SHE RETURNED TO CHECK ON HER STATUS. PETRJAIMEIBRAHIMA R 12/19/2020 2:20:06 PM > REPORT GIVEN TO Larisa MATHEW RN AT THIS TIME TO MONITOR PATIENT FOLLOWING NORCO DOSE. PETRJAIMEIBRAHIMA R 12/19/2020 2:30:19 PM > PER Larisa MATHEW RN, THE PATIENT REPORTS TEMPORAL HEADACHE AND DIZZINESS. DR. JEAN NOTIFIED, RECIEVED ORDERS TO CONTINUE TO MONITOR. EUSEBIA SHARMAGAIL R 12/19/2020 2:50:15 PM > REPORT RETURNED TO THIS WOOL CLEANER FROM Larisa MATHEW RN. PATIENT'S BP STILL ELEVATED AT 178/98. WILL CONTINUE TO MONITOR. EDITHIBRAHIMA R 12/19/2020 3:15:36 PM > BP REMAINED ELEVATED AT 180/100. PATIENT REPORTS 8/10 PAIN IN HER LEGS/BACK, SLIGHT HEADACHE AND DIZZINESS. DR. JEAN NOTIFIED AND WENT TO SEE PATIENT. AFTER SPEAKING WITH PATIENT, DR. JEAN STATED PATIENT COULD GO HOME AND FOR THIS WOOL CLEANER TO FOLLOW UP WITH [facility] LATER TODAY REGARDING PATIENT'S STATUS. COMPLETION OF PROCEDURE APPOINTMENT: POST PAIN 10, DRESSING SITE DRY AND INTACT, IV DISCONTINUED, SITE CLEAR, CATHETER INTACT, GAIT STEADY, TEACHING COMPLETED, PATIENT ACKNOWLEDGES UNDERSTANDING YES, PROCEDURE APPOINTMENT COMPLETED AT 1543 BY: Matilde SHARMA RN PRE PROCEDURE DIAGNOSIS LUMBAR DISC DISORDER WITH RADICULOPATHY POST PROCEDURE DIAGNOSIS LUMBAR DISC DISORDER WITH RADICULOPATHY PROCEDURE LUMBAR EPIDURAL STEROID INJECTION UNDER FLUOROSCOPIC GUIDANCE SURGEON DR. MARIO JEAN MARKET ASSET PROTECTION MANAGER NONE ANESTHESIA LOCAL PRE PROCEDURE NOTE THE PATIENT HAS A HISTORY OF CHRONIC LOW BACK PAIN. I EVALUATED THE PATIENT AND REVIEWED THE CHART. I WENT OVER THE RISKS, ALTERNATIVES, AND BENEFITS ASSOCIATED WITH THIS PROCEDURE. THE PATIENT WOULD LIKE TO PROCEED AND GIVE CONSENT TO PERFORMED THE PROCEDURE. THE PATIENT DENIES UNEXPLAINABLE WEIGHT LOSS, FEVER, CHILLS, OR NEW CHANGES IN URINARY OR BOWEL CONTROL. THE PATIENT IS COVID-19 NEGATIVE. THE PATIENT HAS BEEN EXPERIENCING SEIZURES. I SPOKE WITH THE PATIENT'S PRIMARY CARE PHYSICIAN, ISRAEL FRY, AND DISCUSSED THIS WITH HER. SHE STATED THAT THE PATIENT SAW NEUROLOGY ABOUT THIS AND THAT IT IS A PSYCHOLOGY SITUATION AND THAT IT IS OKAY TO PROCEED TODAY WITH THE PROCEDURE AND NO MANAGEMENT IS NEEDED. DESCRIPTION OF PROCEDURE THE PATIENT WAS BROUGHT TO THE PROCEDURE ROOM AND PLACED IN THE PRONE POSITION. THE LUMBOSACRAL AREA WAS CLEANED WITH BETADINE SOLUTION AND DRAPED ASEPTICALLY. THE PROCEDURE WAS DONE UNDER STERILE CONDITIONS. A TIMEOUT WAS PERFORMED WHERE THE CONSENTED SITE WAS VERIFIED WITH EVERYONE IN THE ROOM. UNDER FLUOROSCOPIC GUIDANCE, THE TARGET POINT WAS SELECTED AT THE INTERLAMINAR LEVEL OF L4-L5. I CONFIRMED AGAIN THE SITE OF THE TARGET. LIDOCAINE WAS USED TO NUMB THE SKIN AND THE SUBCUTANEOUS TISSUE BELOW IT. EPIDURAL TUOHY NEEDLE, 17-GAUGE, WAS ADVANCED UNDER FLUOROSCOPIC GUIDANCE AND FOLLOWING PATIENT FEEDBACK UNTIL THE EPIDURAL SPACE WAS REACHED 9 CM DEEP INTO THE SKIN BY THE LOSS OF RESISTANCE TECHNIQUE. ISOVUE-M DYE 30%, 0.25 ML, WAS INJECTED SHOWING ADEQUATE SPREAD OF THE DYE. THEN, A SOLUTION OF 3 ML OF NORMAL SALINE WITH DEPO-MEDROL 40 MG WAS INJECTED SLOWLY FOLLOWING PATIENT FEEDBACK. THE MEDICATIONS WERE VERIFIED WITH THE NURSE. THERE WAS NO EVIDENCE OF BLOOD, PARESTHESIA OR CEREBROSPINAL FLUID DURING THE PROCEDURE. THE PATIENT WAS SENT TO THE RECOVERY ROOM. THE PATIENT WAS MOVING THE EXTREMITIES AND DOING WELL. THERE WERE NO COMPLICATIONS DURING THE PROCEDURE. ESTIMATED BLOOD LOSS WAS LESS THAN 5 ML. FLUOROSCOPY TIME WAS 24 SECONDS POST PROCEDURE NOTE DEPENDING ON THE RESULTS, CONSIDER A TRANSFORAMINAL EPIDURAL AND DEPENDING ON THE RESULTS OF THAT, CONSIDER MILD/VERTIFLEX. THE PATIENT WILL BE SEEN IN A FOLLOW UP IN THE NEXT FEW WEEKS. I AM LOOKING FOR LONG LASTING RELIEF FOR THE PATIENT WITH THIS INTERVENTION. INSTRUCTIONS WERE GIVEN, QUESTIONS WERE ANSWERED, AND THE PATIENT EXPRESSED UNDERSTANDING AND AGREES WITH THE PLAN. I, LAUREN BORRERO, DOCUMENTED THE ABOVE INFORMATION ACTING A SCRIBE FOR DR. JEAN. I HAVE REVIEWED THE ABOVE DOCUMENT, WRITTEN BY LAUREN BORRERO MYSQL DATABASE DEVELOPER, AND I VERIFY THAT IT IS ACCURATE PROCEDURE CODES 20444 LUMBAR/SACRAL W/ IMAGING DISPOSITION & COMMUNICATION FOLLOW UP FOLLOW UP WITH POTATO CHIP PROCESSING SUPERVISOR (REASON: POST LUMBAR EPIDURAL STEROID INJECTION) ELECTRONICALLY SIGNED BY MARIO JEAN MD, ON 12/27/2020 AT 01:14 PM EST DISCLAIMER : THIS IS A VISIT SUMMARY EXTRACTED FROM THE [employer] CHART. IT IS NOT A COPY OF THE [employer] PROGRESS NOTE. SHAR
== END ==
LOC: M PAIN 11:20
PROVIDERS: ATTEND Anesthesiology
DX: M51.16 Intervertebral disc disorders with radiculopathy, lumbar region (principal); G89.29 Other chronic pain; E11.9 Type 2 diabetes mellitus without complications; Z86.59 Personal history of other mental and behavioral disorders; Z87.891 Personal history of nicotine dependence; Z88.0 Allergy status to penicillin; Z88.2 Allergy status to sulfonamides; Z88.8 Allergy status to other drugs, medicaments and biological substances; Z79.82 Long term (current) use of aspirin; Z79.899 Other long term (current) drug therapy
CPT/HCPCS: 62323; J1030; Q9967

== ENCOUNTER → 2021-01-02 | Outpatient (CLI) | payer MEDICARE, MEDICAID ==
[~2021-01-02] MED LIST changes: -ISOVUE-M 300 61% 15ML VIAL As Ordered ONE; -LIDOCAINE 1% SDV 30ML VIAL As Ordered ONE; -MIDAZOLAM INJ 2MG/2ML VIAL (J2250 PER 1MG) As Ordered ONE; -NORCO, ANEXSIA 5/325MG TABLET (HYDROcodone/ACETAMINOPHEN) As Ordered ONE; -diazePAM 10MG/2ML SYRINGE (J3360 PER 5MG) As Ordered ONE; -diazePAM 2 MG TAB As Ordered ONE; -methylPREDNISolone SUSP 40MG/ML 1ML VIAL (DEPO MEDROL) As Ordered ONE
--- NOTE | 2021-01-03 04:05 | ECWPNPC ---
PATIENT NAME: JUAN KELSEY : 1960 GENDER: FEMALE VISIT DATE: 01/02/2021 DISCHARGE DATE: 01/02/21 1459 VISIT LOCKED DATE TIME: PHYSICIAN: CONRAD BONE RESOURCE: CONRAD BONE REASON FOR APPOINTMENT 1. POST BILATERAL LUMBAR THERAPEUTIC FACET BLOCK L4-5, L5-S1 HISTORY OF PRESENT ILLNESS GENERAL: HERE FOR POST PROCEDURE FOLLOW-UP. HAD LUMBAR EPIDURAL STEROID INJECTION ON 12/19/2020. REPORTING MARKED REDUCTION IN PAIN BOTH ACROSS HER LOWER BACK AND INTO HER LEGS IS PROCEDURE. REPORTING IMPROVED ACTIVITY TOLERANCE. REPORTS INTERMITTENT EPISODES OF LEFT HIP PAIN WHICH IS CHRONIC. OVERALL DOING VERY WELL. -. FALL RISK SCREENING: SCREENING :NO FALLS REPORTED IN THE LAST YEAR PAIN SCREENING: PATIENT HAS A COMPLAINT OF ACUTE OR CHRONIC PAIN :YES LOCATION OF PAIN:LOW BACK INTENSITY OF PAIN (SCALE OF 1 TO 10):6 WHAT DOES YOUR PAIN FEEL LIKE:ACHING DURATION:INTERMITTENT PAIN IS INCREASED BY:ACTIVITIES PAIN IS DECREASED BY:USE OF PAIN MEDICATIONS NURSING NOTE: -. PAIN CENTER INTAKE QUESTIONS: DO YOU HAVE A HISTORY OF MRSA? :NO DO YOU TAKE A BLOOD THINNERS? :NO DO YOU HAVE ANY BLEEDING DISORDERS? :NO ANY NEW NUMBNESS OR WEAKNESS IN YOUR LEGS OR ARMS? :NO ANY PACEMAKER,DEFIBRILLATOR, OR DORSAL COLUMN STIMULATOR? :NO DO YOU HAVE ANY RASHES OR OPEN SORES? :NO ARE YOU ALLERGIC TO IV DYE? :NO ARE YOU DIABETIC? :YES ANY NEW PROBLEMS WITH YOUR MEDICATIONS? :NO HAVE YOU RECEIVED A VACCINE IN THE PAST 30 DAYS? :NO DO YOU PLAN TO RECEIVE A VACCINE IN THE NEXT 21 DAYS? :NO DO YOU NEED ANY PRESCRIPTION? :NO DO YOU TAKE ANY IMMUNOSUPPRESSIVE MEDICATIONS? :NO IS THERE A CHANCE YOU COULD BE ? :NO ARE YOU BREAST FEEDING? :NO CURRENT MEDICATIONS TAKING HALOPERIDOL 5 MG TABLET 1 TABLET ORALLY TWICE A DAY TAKING LEVOTHYROXINE SODIUM 25 MCG TABLET 1 TABLET IN THE MORNING ON AN EMPTY STOMACH ORALLY ONCE A DAY TAKING LISINOPRIL 5 MG TABLET 1 TABLET ORALLY ONCE A DAY TAKING ATIVAN 0.5 MG TABLET 1 TABLET NEEDED ORALLY BID TAKING OXYBUTYNIN CHLORIDE 5 MG TABLET 1 TABLET ORALLY DAILY TAKING SERTRALINE HCL 100 MG TABLET 2 TABLETS ORALLY ONCE A DAY TAKING TRIHEXYPHENIDYL HCL 2 MG TABLET 1 TABLET ORALLY BEFORE BEDTIME TAKING AMBIEN 5 MG TABLET 1/2 TABLET ORALLY TWICE A DAY TAKING CLOZARIL 200 MG TABLET , 1 TABLETS AT BEDTIME ORALLY AT BEDTIME TAKING CHOLECALCIFEROL 50 MCG (1999 UT) CAPSULE 1 CAPSULE ORALLY ONCE A DAY TAKING ASPIRIN 81 81 MG TABLET DELAYED RELEASE 1 TABLET ORALLY ONCE A DAY, NOTES: 07 TAKING ATORVASTATIN CALCIUM 10 MG TABLET 1 TABLET ORALLY BEFORE BEDTIME TAKING ACETAMINOPHEN 325 MG TABLET 1 TABLET NEEDED ORALLY BID TAKING LYRICA 100 MG CAPSULE 1 CAPSULE ORALLY BID MDD2 TAKING CLOZAPINE 200 MG TABLET 1 TABLET ORALLY ONCE A DAY TAKING VITAMIN E 400 UNIT TABLET 1 TABLET ORALLY ONCE A DAY TAKING COLACE 100 MG CAPSULE 2 CAPSULES ORALLY DAILY NEEDED NOT-TAKING MOBIC 15 MG TABLET 1 TABLET ORALLY ONCE A DAY NOT-TAKING MOBIC 15 MG TABLET 1 TABLET ORALLY ONCE A DAY NOT-TAKING LACTULOSE 10 GM/15ML SOLUTION 15 ML ORALLY ONCE A DAY NOT-TAKING MELOXICAM 15 MG TABLET 1 TABLET ORALLY ONCE A DAY NOT-TAKING MAGNESIUM 100 MG TABLET 4 TABLETS WITH A MEAL ORALLY ONCE A DAY NOT-TAKING MAGNESIUM OXIDE 400 240 MG PACKET DIRECTED ORALLY NOT-TAKING METFORMIN HCL 500 MG TABLET 1 TABLET WITH A MEAL ORALLY ONCE A DAY NOT-TAKING GABAPENTIN 100 MG CAPSULE 2 CAPSULE ORALLY TID X7DAYS,BID X7DAYS,1 DAILY X7 DAYS THEN STOP NOT-TAKING NITROFURANTOIN MACROCRYSTAL 100 MG CAPSULE 1 CAPSULE WITH FOOD OR MILK ORALLY BID NOT-TAKING ATORVASTATIN CALCIUM 10 MG TABLET 1 TABLET ORALLY ONCE A DAY, NOTES: DUPLICATE NOT-TAKING CLOZARIL 25 MG TABLET 1 TABLET ORALLY ONCE A DAY, NOTES: DUPLICATE NOT-TAKING LIPITOR 10 MG TABLET 1 TABLET ORALLY ONCE A DAY, NOTES: DUPLICATE PAST MEDICAL HISTORY DIABETES BORDERLINE HTN HIGH CHOLESTEROL KIDNEY PROBLEMS ANXIETY DEPRESSION PSYCHOSIS PARANOID SCHIZOPHRENIA THYROID DISORDER? GLAUCOMA PSEUDO-SEIZURES ALLERGIES PENICILLIN (FOR ALLERGIES USE ONLY): RASH - ALLERGY SULFA (FOR ALLERGY USE ONLY): NAUSEA/VOMITING - ALLERGY LACTOSE: NAUSEA/VOMITING - ALLERGY MELLARIL: ALLERGY SOCIAL HISTORY GENERAL: TOBACCO USE ARE YOU A:FORMER SMOKER HOW LONG HAS IT BEEN SINCE YOU LAST SMOKED?> 10 YEARS LATEX QUESTIONNAIRE LATEX ALLERGY : HAVE YOU EVER DEVELOPED ANY TYPE OF REACTION AFTER HANDLING LATEX PRODUCTS SUCH RUBBER GLOVES, CONDOMS, DIAPHRAGMS, BALLOONS, SOCKS, OR UNDERWEAR?NO LATEX ALLERGY : HAVE YOU EVER DEVELOPED ANY TYPE OF REACTION DURING OR AFTER DENTAL APPOINTMENT, VAGINAL/RECTAL EXAMINATION, SURGICAL PROCEDURE, OR ANY OTHER EXPOSURE?NO LATEX RISK : HAVE YOU EVER HAD ANY DIFFICULTY BREATHING OR HIVES AFTER EATING OR HANDLING ANY FRUITS, OR VEGETABLES; SUCH KIWI, BANANAS, STONE FRUITS, OR CHESTNUTSNO LATEX RISK : DO YOU HAVE A PREVIOUS PERSONAL HISTORY OF MORE THAN NINE SURGERIES, SPINA BIFIDA, OR REPEATED CATHERIZATIONS? NO LATEX RISK : ARE YOU FREQUENTLY EXPOSED TO LATEX PRODUCTS IN YOUR OCCUPATION?NO DATE ASKED : 01/02/2021 ALCOHOL USE: NO. ALCOHOL SCREENING DID YOU HAVE A DRINK CONTAINING ALCOHOL IN THE PAST YEAR?NO POINTS0 INTERPRETATIONNEGATIVE RECREATIONAL DRUG USE DRUG USE?NO CAFFEINE CAFFEINE USE?YES SODA AND COFFEE LANGUAGE LANGUAGES SPOKEN:[place] LEARNING BARRIERS / SPECIAL NEEDS CHANGE FROM LAST VISIT?NO BARRIERS TO LEARNING?YES COMMENTSDOCUMENTED IN NOTES SECTION> SEE BELOW HEARING IMPAIRED?NO VISION IMPAIRED?NO COGNITIVELY IMPAIRED?NO READINESS TO LEARN?YES LEARNING PREFERENCES?YES :TAPES/VIDEOS, BOOKLETS, HANDOUTS LEARNING CAPABILITIES PRESENT?YES EMOTIONAL BARRIERS?YES COMMENTSDOCUMENTED IN NOTES SECTION> PATIENT HAS HISTORY OF PSYCHOSIS, DEPRESSION, ANXIETY, AND PARANOID SCHIZOPHRENIA SPECIAL DEVICES?YES :WALKER 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 DIET: NO LACTOSE, REGULAR. EXERCISE: WALKS, DAILY - WHEN WEATHER PERMITS. MARITAL STATUS: SINGLE. OTHERS AT HOME: CARE HOME - [employer] LIVING SERVICES IN [place]. TODAY'S VISIT 03/23/20, PATIENT DESCRIBES PAIN : ACHING, HAVE IT ALL THE TIME, STABBING, FROM 0-10, WHAT LEVEL IS YOUR PAIN TODAY? 10, PRECIPITATING FACTORS ACTIVITY, ALLEVIATING FACTORS STRETCHES AND WALKING, IMPACT ON FUNCTION YES. - WAS THE PROVIDER NOTIFIED OF ANY PERTINENT INFO?YES HAS THE PATIENT BEEN EDUCATED REGARDING HIS/HER PLAN OF CARE?YES HAS THE PATIENT BEEN EDUCATED REGARDING PAIN, THE RISK FOR PAIN, THE IMPORTANCE OF EFFECTIVE PAIN MANAGEMENT, AND THE PAIN ASSESSMENT PROCESS?YES ADVANCE DIRECTIVE ADVANCE DIRECTIVE DISCUSSED WITH PATIENT:YES PATIENT HAS NO HCP, STATED SHE WOULD LIKE TO LOOK INTO GETTING ONE. INFORMED PATIENT THAT SHE COULD GET THE INFORMATION FROM US AT HER APPOINTMENT AND BRING IT HOME TO LOOK OVER AND FILL OUT. ALSO INFORMED HER THAT WE COULD HELP HER WITH THE FORM HERE IF SHE WOULD LIKE. REVIEW OF SYSTEMS CONSTITUTIONAL: ANY RECENT FEVER NO . CHILLS NO . WEIGHT CHANGE OF UNKNOWN REASONS NO . GASTROENTEROLOGY: NEW UNEXPLAINABLE CHANGES IN BOWEL CONTROL NO . CONSTIPATION NO . GENITOURINARY: ANY NEW CHANGE IN BLADDER CONTROL? NO . NEUROLOGY: NEW ONSET DIZZINESS OR NEUROLOGICAL CHANGES NOT MENTIONED NO . NEW NUMBNESS OR PAIN PATTERNS NOT MENTIONED AND PERTINENT TO TODAY'S VISIT NO . CARDIOLOGY: NEW CHEST PRESSURE NO . PATIENT DENIES NO . RESPIRATORY: UNEXPLAINABLE COUGH NO . NEW SHORTNESS OF BREATH NO . VITAL SIGNS WT 239 LBS, HT 65.5 IN, BMI 39.16 INDEX, BP 157/83 MM HG, HR 86 /MIN, RR 18 /MIN, TEMP 97.6 F, OXYGEN SAT % 97%, SAFE IN ENV? (Y/N) YEST.JOÃO SHIPLEY. EXAMINATION GENERAL EXAMINATION: GENERALAWAKE,ALERT ,PLEASANT . PSYCHAFFECT NORMAL . LUNGS:LUNG TREVIZO ARE CLEAR TO AUSCULTATION BILATERALLY. GOOD MOVEMENT OF AIR . HEART:S1, S2 IN A REGULAR RATE AND RHYTHM. NO SIGNIFICANT MURMURS, RUBS OR GALLOPS NOTED . 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 IT IS NOT A COPY OF THE [employer] PROGRESS NOTE. SHAR
== END ==
LOC: M PAIN 13:45
PROVIDERS: ATTEND Nurse Practitioner Family
DX: M47.27 Other spondylosis with radiculopathy, lumbosacral region (principal); G89.29 Other chronic pain; E11.9 Type 2 diabetes mellitus without complications; Z86.59 Personal history of other mental and behavioral disorders; Z87.891 Personal history of nicotine dependence; Z88.0 Allergy status to penicillin; Z88.1 Allergy status to other antibiotic agents; Z88.8 Allergy status to other drugs, medicaments and biological substances; Z91.011 Allergy to milk products; Z79.82 Long term (current) use of aspirin; Z79.899 Other long term (current) drug therapy

== ENCOUNTER → 2021-01-18 | Outpatient (REF) | payer MEDICARE, MEDICAID ==
[2021-01-18 12:12] LABS: BASO % 0.1 % (0.0-1.0); HEMATOCRIT 37.9 % (36.0-47.0); HEMOGLOBIN 11.8 g/dl (12.0-15.5); LYMPH # 1.8 10^3/uL (1.5-5.0); LYMPH % 21.8 % (24.0-44.0); MEAN CORPUSCULAR HEMOGLOBIN 27.5 pg (27.0-33.0); MEAN CORPUSCULAR HGB CONC 31.1 g/dl (32.0-36.5); MEAN CORPUSCULAR VOLUME 88.3 fl (80.0-96.0); MONO # 0.4 10^3/uL (0.0-0.8); MONO % 5.1 % (2.0-8.0); NEUTROPHILS # 6.1 10^3/uL (1.5-8.5); NEUTROPHILS % 72.3 % (36.0-66.0); PLATELET COUNT, AUTOMATED 288 10^3/uL (150-450); RED BLOOD COUNT 4.29 10^6/uL (4.00-5.40); WHITE BLOOD COUNT 8.4 10^3/uL (4.0-10.0)
== END ==
LOC: M LABDRAWC 11:30
PROVIDERS: ATTEND Registered Nurse
DX: F25.1 Schizoaffective disorder, depressive type (principal); Z51.81 Encounter for therapeutic drug level monitoring; Z13.9 Encounter for screening, unspecified; Z79.899 Other long term (current) drug therapy

== ENCOUNTER → 2021-01-25 | Outpatient (REF) | payer MEDICARE, MEDICAID ==
[2021-01-25 12:03] LABS: HEMATOCRIT 41.4 % (36.0-47.0); HEMOGLOBIN 12.9 g/dl (12.0-15.5); LYMPH # 2.2 10^3/uL (1.5-5.0); LYMPH % 29.3 % (24.0-44.0); MEAN CORPUSCULAR HEMOGLOBIN 27.6 pg (27.0-33.0); MEAN CORPUSCULAR HGB CONC 31.2 g/dl (32.0-36.5); MEAN CORPUSCULAR VOLUME 88.5 fl (80.0-96.0); MONO # 0.5 10^3/uL (0.0-0.8); MONO % 6.4 % (2.0-8.0); NEUTROPHILS # 4.7 10^3/uL (1.5-8.5); NEUTROPHILS % 63.9 % (36.0-66.0); PLATELET COUNT, AUTOMATED 295 10^3/uL (150-450); RED BLOOD COUNT 4.68 10^6/uL (4.00-5.40); WHITE BLOOD COUNT 7.4 10^3/uL (4.0-10.0)
== END ==
LOC: M LABDRAWC 11:31
PROVIDERS: ATTEND Registered Nurse
DX: F25.1 Schizoaffective disorder, depressive type (principal); Z79.899 Other long term (current) drug therapy; Z13.9 Encounter for screening, unspecified; Z51.81 Encounter for therapeutic drug level monitoring

== ENCOUNTER → 2021-02-01 | Outpatient (REF) | payer MEDICARE, MEDICAID ==
[2021-02-01 11:46] LABS: HEMATOCRIT 35.2 % (36.0-47.0); HEMOGLOBIN 11.1 g/dl (12.0-15.5); LYMPH # 1.3 10^3/uL (1.5-5.0); LYMPH % 19.1 % (24.0-44.0); MEAN CORPUSCULAR HGB CONC 31.5 g/dl (32.0-36.5); MEAN CORPUSCULAR VOLUME 88.7 fl (80.0-96.0); MONO # 0.6 10^3/uL (0.0-0.8); MONO % 9.3 % (2.0-8.0); NEUTROPHILS # 4.8 10^3/uL (1.5-8.5); NEUTROPHILS % 71.4 % (36.0-66.0); PLATELET COUNT, AUTOMATED 197 10^3/uL (150-450); RED BLOOD COUNT 3.97 10^6/uL (4.00-5.40); WHITE BLOOD COUNT 6.7 10^3/uL (4.0-10.0)
== END ==
LOC: M LABDRAWC 11:03
PROVIDERS: ATTEND Registered Nurse
DX: F25.1 Schizoaffective disorder, depressive type (principal); Z79.899 Other long term (current) drug therapy; Z51.81 Encounter for therapeutic drug level monitoring; Z13.9 Encounter for screening, unspecified

== ENCOUNTER → 2021-02-08 | Outpatient (REF) | payer MEDICARE, MEDICAID ==
[2021-02-08 13:37] LABS: HEMATOCRIT 33.2 % (36.0-47.0); HEMOGLOBIN 10.5 g/dl (12.0-15.5); LYMPH # 1.6 10^3/uL (1.5-5.0); LYMPH % 27.7 % (24.0-44.0); MEAN CORPUSCULAR HEMOGLOBIN 27.3 pg (27.0-33.0); MEAN CORPUSCULAR HGB CONC 31.6 g/dl (32.0-36.5); MEAN CORPUSCULAR VOLUME 86.2 fl (80.0-96.0); MONO # 0.5 10^3/uL (0.0-0.8); MONO % 8.7 % (2.0-8.0); NEUTROPHILS # 3.6 10^3/uL (1.5-8.5); NEUTROPHILS % 62.7 % (36.0-66.0); PLATELET COUNT, AUTOMATED 291 10^3/uL (150-450); RED BLOOD COUNT 3.85 10^6/uL (4.00-5.40); WHITE BLOOD COUNT 5.8 10^3/uL (4.0-10.0)
[2021-02-10 14:08] LABS: CLOZAPINE 1 325 ng/mL (350-650); CLOZAPINE 2 167 ng/mL (Not Estab.); CLOZAPINE 3 492 ng/mL (.)
== END ==
LOC: M LABDRAWC 11:14
PROVIDERS: ATTEND Registered Nurse
DX: F25.1 Schizoaffective disorder, depressive type (principal); Z51.81 Encounter for therapeutic drug level monitoring; Z13.9 Encounter for screening, unspecified; Z79.899 Other long term (current) drug therapy

== ENCOUNTER → 2021-02-15 | Outpatient (REF) | payer MEDICARE, MEDICAID ==
[2021-02-15 14:10] LABS: BASO % 0.1 % (0.0-1.0); HEMATOCRIT 39.4 % (36.0-47.0); HEMOGLOBIN 12.2 g/dl (12.0-15.5); LYMPH # 2.5 10^3/uL (1.5-5.0); LYMPH % 28.8 % (24.0-44.0); MEAN CORPUSCULAR HEMOGLOBIN 27.7 pg (27.0-33.0); MEAN CORPUSCULAR VOLUME 89.5 fl (80.0-96.0); MONO # 0.6 10^3/uL (0.0-0.8); NEUTROPHILS # 5.6 10^3/uL (1.5-8.5); NEUTROPHILS % 63.5 % (36.0-66.0); PLATELET COUNT, AUTOMATED 320 10^3/uL (150-450); WHITE BLOOD COUNT 8.8 10^3/uL (4.0-10.0)
== END ==
LOC: M LABDRAWC 11:56
PROVIDERS: ATTEND Registered Nurse
DX: F25.1 Schizoaffective disorder, depressive type (principal); Z79.899 Other long term (current) drug therapy; Z51.81 Encounter for therapeutic drug level monitoring; Z13.9 Encounter for screening, unspecified

== ENCOUNTER → 2021-02-22 | Outpatient (REF) | payer MEDICARE, MEDICAID ==
[2021-02-22 12:35] LABS: HEMATOCRIT 36.7 % (36.0-47.0); HEMOGLOBIN 11.5 g/dl (12.0-15.5); LYMPH # 1.5 10^3/uL (1.5-5.0); LYMPH % 23.9 % (24.0-44.0); MEAN CORPUSCULAR HEMOGLOBIN 27.6 pg (27.0-33.0); MEAN CORPUSCULAR HGB CONC 31.3 g/dl (32.0-36.5); MONO # 0.4 10^3/uL (0.0-0.8); MONO % 6.8 % (2.0-8.0); NEUTROPHILS # 4.4 10^3/uL (1.5-8.5); NEUTROPHILS % 69.1 % (36.0-66.0); PLATELET COUNT, AUTOMATED 243 10^3/uL (150-450); RED BLOOD COUNT 4.17 10^6/uL (4.00-5.40); WHITE BLOOD COUNT 6.3 10^3/uL (4.0-10.0)
[2021-02-24 14:09] LABS: CLOZAPINE 1 360 ng/mL (350-650); CLOZAPINE 2 144 ng/mL (Not Estab.); CLOZAPINE 3 504 ng/mL (.)
== END ==
LOC: M LABDRAWC 11:31
PROVIDERS: ATTEND Registered Nurse
DX: F25.1 Schizoaffective disorder, depressive type (principal)

== ENCOUNTER → 2021-03-06 | Outpatient (CLI) | payer MEDICARE, MEDICAID ==
--- NOTE | 2021-03-09 04:59 | ECWPNPC ---
PATIENT NAME: JUAN KELSEY : 1960 GENDER: FEMALE VISIT DATE: 03/06/2021 DISCHARGE DATE: 03/06/21 1439 VISIT LOCKED DATE TIME: PHYSICIAN: CONRAD BONE RESOURCE: CONRAD BONE REASON FOR APPOINTMENT 1. 2 MONTHS (REASON: LBP W RADICULOPATHY -RESPONDS WELL TO LESI) HISTORY OF PRESENT ILLNESS DEPRESSION SCREENING: PHQ-9 LITTLE INTEREST OR PLEASURE IN DOING THINGSNOT AT ALL FEELING DOWN, DEPRESSED, OR HOPELESSMORE THAN HALF THE DAYS TROUBLE FALLING OR STAYING ASLEEP, OR SLEEPING TOO MUCHMORE THAN HALF THE DAYS FEELING TIRED OR HAVING LITTLE ENERGYSEVERAL DAYS POOR APPETITE OR OVEREATING NOT AT ALL FEELING BAD ABOUT YOURSELF-OR THAT YOU ARE A FAILURE OR HAVE LET YOURSELF OR YOUR FAMILY DOWN NOT AT ALL TROUBLE CONCENTRATING ON THINGS, SUCH READING THE NEWSPAPER OR WATCHING TELEVISION MORE THAN HALF THE DAYS MOVING OR SPEAKING SO SLOWLY THAT OTHER PEOPLE COULD HAVE NOTICED. OR THE OPPOSITE- BEING SO FIDGETY OR RESTLESS THAT YOU HAVE BEEN MOVING AROUND A LOT MORE THAN USUALNOT AT ALL THOUGHTS THAT YOU WOULD BE BETTER OFF , OR OF HURTING YOURSELF IN SOME WAY?NOT AT ALL TOTAL SCORE:7 INTERPRETATIONMILD DEPRESSION PHQ-2 (2015 EDITION) LITTLE INTEREST OR PLEASURE IN DOING THINGS?NOT AT ALL FEELING DOWN, DEPRESSED, OR HOPELESS?MORE THAN HALF THE DAYS TOTAL SCORE2 GENERAL: HERE FOR FOLLOW-UP AND MEDICATION MANAGEMENT FOR CHRONIC LOW BACK PAIN. PAIN IS INCREASED ACROSS HER LOWER BACK OVER THE PAST FEW WEEKS. HAS RESPONDED WELL TO LUMBAR EPIDURAL STEROID INJECTIONS IN THE PAST. CURRENTLY TAKING LYRICA 100 MG TWICE A DAY. PATIENT IS HAVING A NEUROSURGERY APPOINTMENT TO EVALUATE HISTORY OF FREQUENT FALLING AND DIZZINESS. -. FALL RISK SCREENING: SCREENING THREE FALLS REPORTED IN THE LAST YEAR, NONE THIS YEAR, A FEW TIMES ALMOST FALL NO INJURIES. PAIN SCREENING: PATIENT HAS A COMPLAINT OF ACUTE OR CHRONIC PAIN :YES INTENSITY OF PAIN (SCALE OF 1 TO 10):9 WHAT DOES YOUR PAIN FEEL LIKE:TENDER, THROBBING, SORE DURATION:CONTINOUS, CONSTANT, ALL DAY PAIN IS INCREASED BY:ACTIVITIES, PROLONGED STANDING PAIN IS DECREASED BY:USE OF PAIN MEDICATIONS NURSING NOTE: -. PAIN CENTER INTAKE QUESTIONS: DO YOU HAVE A HISTORY OF MRSA? :NO DO YOU TAKE A BLOOD THINNERS? :NO DO YOU HAVE ANY BLEEDING DISORDERS? :NO ANY NEW NUMBNESS OR WEAKNESS IN YOUR LEGS OR ARMS? :NO ANY PACEMAKER,DEFIBRILLATOR, OR DORSAL COLUMN STIMULATOR? :NO DO YOU HAVE ANY RASHES OR OPEN SORES? :NO ARE YOU ALLERGIC TO IV DYE? :NO ARE YOU DIABETIC? :YES ANY NEW PROBLEMS WITH YOUR MEDICATIONS? :NO HAVE YOU RECEIVED A VACCINE IN THE PAST 30 DAYS? :NO DO YOU PLAN TO RECEIVE A VACCINE IN THE NEXT 21 DAYS? :NO DO YOU NEED ANY PRESCRIPTION? :NO DO YOU TAKE ANY IMMUNOSUPPRESSIVE MEDICATIONS? :NO IS THERE A CHANCE YOU COULD BE ? :NO ARE YOU BREAST FEEDING? :NO CURRENT MEDICATIONS TAKING HALOPERIDOL 5 MG TABLET 1 TABLET ORALLY TWICE A DAY TAKING LEVOTHYROXINE SODIUM 25 MCG TABLET 1 TABLET IN THE MORNING ON AN EMPTY STOMACH ORALLY ONCE A DAY TAKING LISINOPRIL 5 MG TABLET 1 TABLET ORALLY ONCE A DAY TAKING ATIVAN 0.5 MG TABLET 1 TABLET NEEDED ORALLY BID TAKING OXYBUTYNIN CHLORIDE 5 MG TABLET 1 TABLET ORALLY DAILY TAKING SERTRALINE HCL 100 MG TABLET 2 TABLETS ORALLY ONCE A DAY TAKING TRIHEXYPHENIDYL HCL 2 MG TABLET 1 TABLET ORALLY BEFORE BEDTIME TAKING CLOZARIL 200 MG TABLET , 1 TABLETS AT BEDTIME ORALLY AT BEDTIME TAKING CHOLECALCIFEROL 50 MCG (2000 UT) CAPSULE 1 CAPSULE ORALLY ONCE A DAY TAKING ASPIRIN 81 81 MG TABLET DELAYED RELEASE 1 TABLET ORALLY ONCE A DAY TAKING ATORVASTATIN CALCIUM 10 MG TABLET 1 TABLET ORALLY BEFORE BEDTIME TAKING ACETAMINOPHEN 325 MG TABLET 1 TABLET NEEDED ORALLY BID TAKING CLOZAPINE 200 MG TABLET 1 TABLET ORALLY ONCE A DAY TAKING VITAMIN E 400 UNIT TABLET 1 TABLET ORALLY ONCE A DAY TAKING COLACE 100 MG CAPSULE 2 CAPSULES ORALLY DAILY NEEDED TAKING LYRICA 100 MG CAPSULE 1 CAPSULE ORALLY BID MDD2 TAKING MELATONIN 5 MG TABLET 1 TABLET IN THE EVENING ORALLY NEEDED ONCE A DAY NOT-TAKING AMBIEN 5 MG TABLET 1/2 TABLET ORALLY TWICE A DAY NOT-TAKING MOBIC 15 MG TABLET 1 TABLET ORALLY ONCE A DAY NOT-TAKING MOBIC 15 MG TABLET 1 TABLET ORALLY ONCE A DAY NOT-TAKING LACTULOSE 10 GM/15ML SOLUTION 15 ML ORALLY ONCE A DAY NOT-TAKING MELOXICAM 15 MG TABLET 1 TABLET ORALLY ONCE A DAY NOT-TAKING MAGNESIUM 100 MG TABLET 4 TABLETS WITH A MEAL ORALLY ONCE A DAY NOT-TAKING MAGNESIUM OXIDE 400 240 MG PACKET DIRECTED ORALLY NOT-TAKING METFORMIN HCL 500 MG TABLET 1 TABLET WITH A MEAL ORALLY ONCE A DAY NOT-TAKING GABAPENTIN 100 MG CAPSULE 2 CAPSULE ORALLY TID X7DAYS,BID X7DAYS,1 DAILY X7 DAYS THEN STOP NOT-TAKING NITROFURANTOIN MACROCRYSTAL 100 MG CAPSULE 1 CAPSULE WITH FOOD OR MILK ORALLY BID NOT-TAKING ATORVASTATIN CALCIUM 10 MG TABLET 1 TABLET ORALLY ONCE A DAY, NOTES: DUPLICATE NOT-TAKING CLOZARIL 25 MG TABLET 1 TABLET ORALLY ONCE A DAY, NOTES: DUPLICATE NOT-TAKING LIPITOR 10 MG TABLET 1 TABLET ORALLY ONCE A DAY, NOTES: DUPLICATE MEDICATION LIST REVIEWED AND RECONCILED WITH THE PATIENT PAST MEDICAL HISTORY DIABETES BORDERLINE HTN HIGH CHOLESTEROL KIDNEY PROBLEMS ANXIETY DEPRESSION PSYCHOSIS PARANOID SCHIZOPHRENIA THYROID DISORDER? GLAUCOMA PSEUDO-SEIZURES UTI 2020 ALLERGIES PENICILLIN (FOR ALLERGIES USE ONLY): RASH - ALLERGY SULFA (FOR ALLERGY USE ONLY): NAUSEA/VOMITING - ALLERGY LACTOSE: NAUSEA/VOMITING - ALLERGY MELLARIL: NAUSEA/VOMITING - ALLERGY AMBIEN: SICK SURGICAL HISTORY LEFT KIDNEY SURGERY LEFT EAR SURGERY COLONOSCOPY 12/12/20 SOCIAL HISTORY GENERAL: TOBACCO USE ARE YOU A:FORMER SMOKER 2001 HOW LONG HAS IT BEEN SINCE YOU LAST SMOKED?> 10 YEARS LATEX QUESTIONNAIRE LATEX ALLERGY : HAVE YOU EVER DEVELOPED ANY TYPE OF REACTION AFTER HANDLING LATEX PRODUCTS SUCH RUBBER GLOVES, CONDOMS, DIAPHRAGMS, BALLOONS, SOCKS, OR UNDERWEAR?NO LATEX ALLERGY : HAVE YOU EVER DEVELOPED ANY TYPE OF REACTION DURING OR AFTER DENTAL APPOINTMENT, VAGINAL/RECTAL EXAMINATION, SURGICAL PROCEDURE, OR ANY OTHER EXPOSURE?NO LATEX RISK : HAVE YOU EVER HAD ANY DIFFICULTY BREATHING OR HIVES AFTER EATING OR HANDLING ANY FRUITS, OR VEGETABLES; SUCH KIWI, BANANAS, STONE FRUITS, OR CHESTNUTSNO LATEX RISK : DO YOU HAVE A PREVIOUS PERSONAL HISTORY OF MORE THAN NINE SURGERIES, SPINA BIFIDA, OR REPEATED CATHERIZATIONS? NO LATEX RISK : ARE YOU FREQUENTLY EXPOSED TO LATEX PRODUCTS IN YOUR OCCUPATION?NO DATE ASKED : 03/06/2021 ALCOHOL USE: NO. ALCOHOL SCREENING DID YOU HAVE A DRINK CONTAINING ALCOHOL IN THE PAST YEAR?NO POINTS0 INTERPRETATIONNEGATIVE RECREATIONAL DRUG USE DRUG USE?NO CAFFEINE CAFFEINE USE?YES SODA AND COFFEE LANGUAGE LANGUAGES SPOKEN:FRISIAN LEARNING BARRIERS / SPECIAL NEEDS CHANGE FROM LAST VISIT?NO BARRIERS TO LEARNING?YES COMMENTSDOCUMENTED IN NOTES SECTION> SEE BELOW HEARING IMPAIRED?NO VISION IMPAIRED?NO COGNITIVELY IMPAIRED?NO READINESS TO LEARN?YES LEARNING PREFERENCES?YES :TAPES/VIDEOS, BOOKLETS, HANDOUTS LEARNING CAPABILITIES PRESENT?YES EMOTIONAL BARRIERS?YES COMMENTSDOCUMENTED IN NOTES SECTION> PATIENT HAS HISTORY OF PSYCHOSIS, DEPRESSION, ANXIETY, AND PARANOID SCHIZOPHRENIA SPECIAL DEVICES?YES :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 DIET: NO LACTOSE, REGULAR. EXERCISE: WALKS, DAILY - WHEN WEATHER PERMITS. MARITAL STATUS: SINGLE. 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 TODAY'S VISIT 03/23/20, PATIENT DESCRIBES PAIN : ACHING, HAVE IT ALL THE TIME, STABBING, FROM 0-10, WHAT LEVEL IS YOUR PAIN TODAY? 10, PRECIPITATING FACTORS ACTIVITY, ALLEVIATING FACTORS STRETCHES AND WALKING, IMPACT ON FUNCTION YES. - WAS THE PROVIDER NOTIFIED OF ANY PERTINENT INFO?YES HAS THE PATIENT BEEN EDUCATED REGARDING HIS/HER PLAN OF CARE?YES HAS THE PATIENT BEEN EDUCATED REGARDING PAIN, THE RISK FOR PAIN, THE IMPORTANCE OF EFFECTIVE PAIN MANAGEMENT, AND THE PAIN ASSESSMENT PROCESS?YES ADVANCE DIRECTIVE ADVANCE DIRECTIVE DISCUSSED WITH PATIENT:YES PATIENT HAS NO HCP, STATED SHE WOULD LIKE TO LOOK INTO GETTING ONE. INFORMED PATIENT THAT SHE COULD GET THE INFORMATION FROM US AT HER APPOINTMENT AND BRING IT HOME TO LOOK OVER AND FILL OUT. ALSO INFORMED HER THAT WE COULD HELP HER WITH THE FORM HERE IF SHE WOULD LIKE. HOSPITALIZATION/MAJOR DIAGNOSTIC PROCEDURE MENTAL HEALTH - MULTIPLE BOWEL OBSTRUCTION 2019 SURGERY RELATED SLEEP APNEW TESTING UTI REACTION TO AMBIEN REVIEW OF SYSTEMS CONSTITUTIONAL: ANY RECENT FEVER NO . CHILLS NO . WEIGHT CHANGE OF UNKNOWN REASONS NO . GASTROENTEROLOGY: NEW UNEXPLAINABLE CHANGES IN BOWEL CONTROL NO . CONSTIPATION NO . GENITOURINARY: ANY NEW CHANGE IN BLADDER CONTROL? NO . NEUROLOGY: NEW ONSET DIZZINESS OR NEUROLOGICAL CHANGES NOT MENTIONED NO . NEW NUMBNESS OR PAIN PATTERNS NOT MENTIONED AND PERTINENT TO TODAY'S VISIT NO . CARDIOLOGY: NEW CHEST PRESSURE NO . PATIENT DENIES NO . RESPIRATORY: UNEXPLAINABLE COUGH NO . NEW SHORTNESS OF BREATH NO . VITAL SIGNS WT 236.8 LBS, HT 65.5 IN, BMI 38.80 INDEX, BP 136/79 MM HG, HR 97 /MIN, RR 18 /MIN, TEMP 98.0 F, OXYGEN SAT % 97%, SAFE IN ENV? (Y/N) YES, NA INITIALS AW 1402T.JOÃO SHIPLEY. EXAMINATION GENERAL EXAMINATION: GENERALAWAKE,ALERT ,PLEASANT . PSYCHAFFECT NORMAL . LUNGS:LUNG TREVIZO ARE CLEAR TO AUSCULTATION BILATERALLY. GOOD MOVEMENT OF AIR . HEART:S1, S2 IN A REGULAR RATE AND RHYTHM. NO SIGNIFICANT MURMURS, RUBS OR GALLOPS NOTED . 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 FACILITY CHARGE DISPOSITION & COMMUNICATION FOLLOW UP 2 MONTHS (REASON: MED MGMNT) ELECTRONICALLY SIGNED BY BA MONTESINOS ON 03/08/2021 AT 08:50 AM EDT DISCLAIMER : THIS IS A VISIT SUMMARY EXTRACTED FROM THE [employer] CHART. IT IS NOT A COPY OF THE [employer] PROGRESS NOTE. SHAR
== END ==
LOC: M PAIN 14:00
PROVIDERS: ATTEND Nurse Practitioner Family
DX: M47.27 Other spondylosis with radiculopathy, lumbosacral region (principal); G89.29 Other chronic pain; E11.9 Type 2 diabetes mellitus without complications; Z86.59 Personal history of other mental and behavioral disorders; Z87.891 Personal history of nicotine dependence; Z88.0 Allergy status to penicillin; Z88.2 Allergy status to sulfonamides; Z88.8 Allergy status to other drugs, medicaments and biological substances; Z91.011 Allergy to milk products; Z79.82 Long term (current) use of aspirin; Z79.899 Other long term (current) drug therapy

== ENCOUNTER → 2021-03-08 | Outpatient (REF) | payer MEDICARE, MEDICAID ==
[2021-03-08 12:13] LABS: BASO % 0.1 % (0.0-1.0); HEMATOCRIT 37.5 % (36.0-47.0); HEMOGLOBIN 11.6 g/dl (12.0-15.5); LYMPH # 1.8 10^3/uL (1.5-5.0); LYMPH % 22.8 % (24.0-44.0); MEAN CORPUSCULAR HEMOGLOBIN 27.4 pg (27.0-33.0); MEAN CORPUSCULAR HGB CONC 30.9 g/dl (32.0-36.5); MEAN CORPUSCULAR VOLUME 88.7 fl (80.0-96.0); MONO # 0.6 10^3/uL (0.0-0.8); MONO % 7.7 % (2.0-8.0); NEUTROPHILS # 5.3 10^3/uL (1.5-8.5); NEUTROPHILS % 69.1 % (36.0-66.0); PLATELET COUNT, AUTOMATED 215 10^3/uL (150-450); RED BLOOD COUNT 4.23 10^6/uL (4.00-5.40); WHITE BLOOD COUNT 7.7 10^3/uL (4.0-10.0)
== END ==
LOC: M LABDRAWC 11:39
PROVIDERS: ATTEND Registered Nurse
DX: F25.1 Schizoaffective disorder, depressive type (principal); Z51.81 Encounter for therapeutic drug level monitoring; Z13.9 Encounter for screening, unspecified; Z79.899 Other long term (current) drug therapy

== ENCOUNTER → 2021-03-15 | Outpatient (REF) | payer MEDICARE, MEDICAID ==
[~2021-03-15] MED LIST changes: +GABA-283 PO; -GABA-845 PO
[2021-03-15 11:53] LABS: BASO % 0.1 % (0.0-1.0); HEMATOCRIT 36.8 % (36.0-47.0); HEMOGLOBIN 11.4 g/dl (12.0-15.5); LYMPH # 1.6 10^3/uL (1.5-5.0); LYMPH % 19.3 % (24.0-44.0); MEAN CORPUSCULAR HEMOGLOBIN 27.6 pg (27.0-33.0); MEAN CORPUSCULAR VOLUME 89.1 fl (80.0-96.0); MONO # 0.6 10^3/uL (0.0-0.8); MONO % 6.8 % (2.0-8.0); NEUTROPHILS % 73.3 % (36.0-66.0); PLATELET COUNT, AUTOMATED 263 10^3/uL (150-450); RED BLOOD COUNT 4.13 10^6/uL (4.00-5.40); WHITE BLOOD COUNT 8.2 10^3/uL (4.0-10.0)
== END ==
LOC: M LABDRAWC 11:15
PROVIDERS: ATTEND Registered Nurse
DX: F25.1 Schizoaffective disorder, depressive type (principal); Z51.81 Encounter for therapeutic drug level monitoring; Z13.9 Encounter for screening, unspecified; Z79.899 Other long term (current) drug therapy

== ENCOUNTER → 2021-03-22 | Outpatient (REF) | payer MEDICARE, MEDICAID ==
[2021-03-22 11:56] LABS: HEMATOCRIT 35.6 % (36.0-47.0); LYMPH # 1.2 10^3/uL (1.5-5.0); LYMPH % 19.3 % (24.0-44.0); MEAN CORPUSCULAR HEMOGLOBIN 27.4 pg (27.0-33.0); MEAN CORPUSCULAR HGB CONC 30.9 g/dl (32.0-36.5); MEAN CORPUSCULAR VOLUME 88.8 fl (80.0-96.0); MONO # 0.4 10^3/uL (0.0-0.8); MONO % 6.7 % (2.0-8.0); NEUTROPHILS # 4.8 10^3/uL (1.5-8.5); NEUTROPHILS % 73.7 % (36.0-66.0); PLATELET COUNT, AUTOMATED 238 10^3/uL (150-450); RED BLOOD COUNT 4.01 10^6/uL (4.00-5.40); WHITE BLOOD COUNT 6.4 10^3/uL (4.0-10.0)
== END ==
LOC: M LABDRAWC 11:26
PROVIDERS: ATTEND Registered Nurse
DX: F25.1 Schizoaffective disorder, depressive type (principal); Z51.81 Encounter for therapeutic drug level monitoring; Z13.9 Encounter for screening, unspecified; Z79.899 Other long term (current) drug therapy

== ENCOUNTER → 2021-03-22 | Outpatient (REF) | payer MEDICARE, MEDICAID | LOC: M LABDRAWC 11:25 | PROVIDERS: ATTEND Internal Medicine Gastroenterology | DX: R19.7 Diarrhea, unspecified (principal); F25.1 Schizoaffective disorder, depressive type; Z51.81 Encounter for therapeutic drug level monitoring; Z13.9 Encounter for screening, unspecified; Z79.899 Other long term (current) drug therapy ==

== ENCOUNTER → 2021-03-29 | Outpatient (REF) | payer MEDICARE, MEDICAID ==
[2021-03-29 11:27] LABS: HEMATOCRIT 37.1 % (36.0-47.0); HEMOGLOBIN 11.4 g/dl (12.0-15.5); LYMPH # 1.7 10^3/uL (1.5-5.0); LYMPH % 29.6 % (24.0-44.0); MEAN CORPUSCULAR HEMOGLOBIN 27.3 pg (27.0-33.0); MEAN CORPUSCULAR HGB CONC 30.7 g/dl (32.0-36.5); MONO # 0.6 10^3/uL (0.0-0.8); MONO % 11.1 % (2.0-8.0); NEUTROPHILS # 3.4 10^3/uL (1.5-8.5); NEUTROPHILS % 59.1 % (36.0-66.0); PLATELET COUNT, AUTOMATED 255 10^3/uL (150-450); RED BLOOD COUNT 4.17 10^6/uL (4.00-5.40); WHITE BLOOD COUNT 5.7 10^3/uL (4.0-10.0)
[2021-03-31 15:15] LABS: CLOZAPINE 1 435 ng/mL (350-650); CLOZAPINE 2 148 ng/mL (Not Estab.); CLOZAPINE 3 583 ng/mL (.)
== END ==
LOC: M LABDRAWC 11:05
PROVIDERS: ATTEND Registered Nurse
DX: F25.1 Schizoaffective disorder, depressive type (principal); Z51.81 Encounter for therapeutic drug level monitoring; Z13.9 Encounter for screening, unspecified; Z79.899 Other long term (current) drug therapy

== ENCOUNTER → 2021-04-06 | Outpatient (REF) | payer MEDICARE, MEDICAID ==
[2021-04-06 16:11] LABS: BASO % 0.1 % (0.0-1.0); HEMATOCRIT 35.7 % (36.0-47.0); LYMPH # 1.4 10^3/uL (1.5-5.0); LYMPH % 19.6 % (24.0-44.0); MEAN CORPUSCULAR HEMOGLOBIN 27.7 pg (27.0-33.0); MEAN CORPUSCULAR HGB CONC 30.8 g/dl (32.0-36.5); MEAN CORPUSCULAR VOLUME 89.9 fl (80.0-96.0); MONO # 0.6 10^3/uL (0.0-0.8); MONO % 8.2 % (2.0-8.0); NEUTROPHILS # 5.2 10^3/uL (1.5-8.5); NEUTROPHILS % 71.8 % (36.0-66.0); PLATELET COUNT, AUTOMATED 244 10^3/uL (150-450); RED BLOOD COUNT 3.97 10^6/uL (4.00-5.40); WHITE BLOOD COUNT 7.2 10^3/uL (4.0-10.0)
== END ==
LOC: M LABDRAWC 15:48
PROVIDERS: ATTEND Registered Nurse
DX: F25.1 Schizoaffective disorder, depressive type (principal); Z51.81 Encounter for therapeutic drug level monitoring; Z13.9 Encounter for screening, unspecified; Z79.899 Other long term (current) drug therapy

== ENCOUNTER → 2021-04-12 | Outpatient (REF) | payer MEDICARE, MEDICAID ==
[2021-04-12 12:07] LABS: HEMATOCRIT 33.9 % (36.0-47.0); HEMOGLOBIN 10.5 g/dl (12.0-15.5); LYMPH # 1.4 10^3/uL (1.5-5.0); LYMPH % 19.1 % (24.0-44.0); MEAN CORPUSCULAR HEMOGLOBIN 27.3 pg (27.0-33.0); MEAN CORPUSCULAR VOLUME 88.1 fl (80.0-96.0); MONO # 0.6 10^3/uL (0.0-0.8); MONO % 7.8 % (2.0-8.0); NEUTROPHILS # 5.4 10^3/uL (1.5-8.5); NEUTROPHILS % 72.8 % (36.0-66.0); PLATELET COUNT, AUTOMATED 225 10^3/uL (150-450); RED BLOOD COUNT 3.85 10^6/uL (4.00-5.40); WHITE BLOOD COUNT 7.4 10^3/uL (4.0-10.0)
== END ==
LOC: M LABDRAWC 11:26
PROVIDERS: ATTEND Registered Nurse
DX: F25.1 Schizoaffective disorder, depressive type (principal); Z51.81 Encounter for therapeutic drug level monitoring; Z13.9 Encounter for screening, unspecified; Z79.899 Other long term (current) drug therapy

== ENCOUNTER → 2021-04-28 | Outpatient (CLI) | payer MEDICARE, MEDICAID ==
--- NOTE | 2021-05-01 23:40 | ECWPNPC ---
PATIENT NAME: JUAN KELSEY : 1960 GENDER: FEMALE VISIT DATE: 04/28/2021 DISCHARGE DATE: 04/28/21 1502 VISIT LOCKED DATE TIME: PHYSICIAN: CONRAD BONE RESOURCE: CONRAD BONE REASON FOR APPOINTMENT 1. INCREASED LOW BACK PAIN HISTORY OF PRESENT ILLNESS GENERAL: BEING SEEN TODAY ON AN URGENT BASIS DUE TO SEVERE INCREASE IN LOW BACK PAIN OVER THE PAST FEW WEEKS. DENIES PRECIPITATING EVENT. WAS SEEN IN THE EMERGENCY ROOM AND WAS GIVEN A DOSE OF MORPHINE WHICH PATIENT STATES DID NOT HELP. SHE DOES NOT APPEAR UNCOMFORTABLE TODAY. PAIN IS LOCATED IN USUAL AREA ACROSS LOWER BACK WITH RADIATION INTO POSTERIOR THIGHS. REVIEWED MRI OF THE LS SPINE. DISCUSSED TREATMENT PLAN. -. FALL RISK SCREENING: SCREENING : NO FALLS REPORTED IN THE LAST YEAR. PAIN SCREENING: PATIENT HAS A COMPLAINT OF ACUTE OR CHRONIC PAIN :YES LOCATION OF PAIN:LOW BACK INTENSITY OF PAIN (SCALE OF 1 TO 10):8 WHAT DOES YOUR PAIN FEEL LIKE:SHARP, STABBING, TENDER, THROBBING, SORE, SHOOTING DURATION:CONTINOUS, CONSTANT, ALL DAY PAIN IS INCREASED BY:ACTIVITIES, PROLONGED STANDING PAIN IS DECREASED BY:OTHERS HEAT AND ICE NURSING NOTE: -. PAIN CENTER INTAKE QUESTIONS: DO YOU HAVE A HISTORY OF MRSA? :NO DO YOU TAKE A BLOOD THINNERS? :NO ASPIRIN 81 81 MG DO YOU HAVE ANY BLEEDING DISORDERS? :NO ANY NEW NUMBNESS OR WEAKNESS IN YOUR LEGS OR ARMS? :NO ANY PACEMAKER,DEFIBRILLATOR, OR DORSAL COLUMN STIMULATOR? :NO DO YOU HAVE ANY RASHES OR OPEN SORES? :NO ARE YOU ALLERGIC TO IV DYE? :NO ARE YOU DIABETIC? :NO PATIENT STATED BORDERLINE ANY NEW PROBLEMS WITH YOUR MEDICATIONS? :NO HAVE YOU RECEIVED A VACCINE IN THE PAST 30 DAYS? :NO DO YOU PLAN TO RECEIVE A VACCINE IN THE NEXT 21 DAYS? :NO DO YOU NEED ANY PRESCRIPTION? :NO DO YOU TAKE ANY IMMUNOSUPPRESSIVE MEDICATIONS? :NO IS THERE A CHANCE YOU COULD BE ? :NO ARE YOU BREAST FEEDING? :NO CURRENT MEDICATIONS TAKING HALOPERIDOL 5 MG TABLET 1 TABLET ORALLY TWICE A DAY TAKING LEVOTHYROXINE SODIUM 25 MCG TABLET 1 TABLET IN THE MORNING ON AN EMPTY STOMACH ORALLY ONCE A DAY TAKING LISINOPRIL 5 MG TABLET 1 TABLET ORALLY ONCE A DAY TAKING ATIVAN 0.5 MG TABLET 1 TABLET NEEDED ORALLY BID TAKING OXYBUTYNIN CHLORIDE 5 MG TABLET 1 TABLET ORALLY DAILY TAKING SERTRALINE HCL 100 MG TABLET 2 TABLETS ORALLY ONCE A DAY TAKING TRIHEXYPHENIDYL HCL 2 MG TABLET 1 TABLET ORALLY BEFORE BEDTIME TAKING CLOZARIL 200 MG TABLET , 1 TABLETS AT BEDTIME ORALLY AT BEDTIME TAKING CHOLECALCIFEROL 50 MCG (1999) CAPSULE 1 CAPSULE ORALLY ONCE A DAY TAKING ASPIRIN 81 81 MG TABLET DELAYED RELEASE 1 TABLET ORALLY ONCE A DAY TAKING ATORVASTATIN CALCIUM 10 MG TABLET 1 TABLET ORALLY BEFORE BEDTIME TAKING ACETAMINOPHEN 325 MG TABLET 1 TABLET NEEDED ORALLY BID TAKING CLOZAPINE 200 MG TABLET 1 TABLET ORALLY ONCE A DAY TAKING VITAMIN E 400 UNIT TABLET 1 TABLET ORALLY ONCE A DAY TAKING MELATONIN 5 MG TABLET 1 TABLET IN THE EVENING ORALLY NEEDED ONCE A DAY TAKING MOBIC 15 MG TABLET 1 TABLET ORALLY ONCE A DAY TAKING LYRICA 100 MG CAPSULE 1 CAPSULE ORALLY BID MDD2 NOT-TAKING COLACE 100 MG CAPSULE 2 CAPSULES ORALLY DAILY NEEDED NOT-TAKING AMBIEN 5 MG TABLET 1/2 TABLET ORALLY TWICE A DAY NOT-TAKING MOBIC 15 MG TABLET 1 TABLET ORALLY ONCE A DAY NOT-TAKING LACTULOSE 10 GM/15ML SOLUTION 15 ML ORALLY ONCE A DAY NOT-TAKING MELOXICAM 15 MG TABLET 1 TABLET ORALLY ONCE A DAY NOT-TAKING MAGNESIUM 100 MG TABLET 4 TABLETS WITH A MEAL ORALLY ONCE A DAY NOT-TAKING MAGNESIUM OXIDE 400 240 MG PACKET DIRECTED ORALLY NOT-TAKING METFORMIN HCL 500 MG TABLET 1 TABLET WITH A MEAL ORALLY ONCE A DAY NOT-TAKING GABAPENTIN 100 MG CAPSULE 2 CAPSULE ORALLY TID X7DAYS,BID X7DAYS,1 DAILY X7 DAYS THEN STOP NOT-TAKING NITROFURANTOIN MACROCRYSTAL 100 MG CAPSULE 1 CAPSULE WITH FOOD OR MILK ORALLY BID NOT-TAKING ATORVASTATIN CALCIUM 10 MG TABLET 1 TABLET ORALLY ONCE A DAY, NOTES: DUPLICATE NOT-TAKING CLOZARIL 25 MG TABLET 1 TABLET ORALLY ONCE A DAY, NOTES: DUPLICATE NOT-TAKING LIPITOR 10 MG TABLET 1 TABLET ORALLY ONCE A DAY, NOTES: DUPLICATE MEDICATION LIST REVIEWED AND RECONCILED WITH THE PATIENT PAST MEDICAL HISTORY DIABETES BORDERLINE HTN HIGH CHOLESTEROL KIDNEY PROBLEMS ANXIETY DEPRESSION PSYCHOSIS PARANOID SCHIZOPHRENIA THYROID DISORDER? GLAUCOMA PSEUDO-SEIZURES UTI 2020 ALLERGIES PENICILLIN (FOR ALLERGIES USE ONLY): RASH - ALLERGY SULFA (FOR ALLERGY USE ONLY): NAUSEA/VOMITING - ALLERGY LACTOSE: NAUSEA/VOMITING - ALLERGY MELLARIL: NAUSEA/VOMITING - ALLERGY AMBIEN: SICK SOCIAL HISTORY GENERAL: TOBACCO USE ARE YOU A:FORMER SMOKER 2001 HOW LONG HAS IT BEEN SINCE YOU LAST SMOKED?> 10 YEARS LATEX QUESTIONNAIRE LATEX ALLERGY : HAVE YOU EVER DEVELOPED ANY TYPE OF REACTION AFTER HANDLING LATEX PRODUCTS SUCH RUBBER GLOVES, CONDOMS, DIAPHRAGMS, BALLOONS, SOCKS, OR UNDERWEAR?NO LATEX ALLERGY : HAVE YOU EVER DEVELOPED ANY TYPE OF REACTION DURING OR AFTER DENTAL APPOINTMENT, VAGINAL/RECTAL EXAMINATION, SURGICAL PROCEDURE, OR ANY OTHER EXPOSURE?NO LATEX RISK : HAVE YOU EVER HAD ANY DIFFICULTY BREATHING OR HIVES AFTER EATING OR HANDLING ANY FRUITS, OR VEGETABLES; SUCH KIWI, BANANAS, STONE FRUITS, OR CHESTNUTSNO LATEX RISK : DO YOU HAVE A PREVIOUS PERSONAL HISTORY OF MORE THAN NINE SURGERIES, SPINA BIFIDA, OR REPEATED CATHERIZATIONS? NO LATEX RISK : ARE YOU FREQUENTLY EXPOSED TO LATEX PRODUCTS IN YOUR OCCUPATION?NO DATE ASKED : 04/28/2021 ALCOHOL USE: NO. ALCOHOL SCREENING DID YOU HAVE A DRINK CONTAINING ALCOHOL IN THE PAST YEAR?NO POINTS0 INTERPRETATIONNEGATIVE RECREATIONAL DRUG USE DRUG USE?NO CAFFEINE CAFFEINE USE?YES SODA AND COFFEE LANGUAGE LANGUAGES SPOKEN:UZBEK LEARNING BARRIERS / SPECIAL NEEDS CHANGE FROM LAST VISIT?NO BARRIERS TO LEARNING?YES COMMENTSDOCUMENTED IN NOTES SECTION> SEE BELOW HEARING IMPAIRED?YES : IN LEFT EAR VISION IMPAIRED?NO COGNITIVELY IMPAIRED?NO READINESS TO LEARN?YES LEARNING PREFERENCES?YES :TAPES/VIDEOS, BOOKLETS, HANDOUTS LEARNING CAPABILITIES PRESENT?YES EMOTIONAL BARRIERS?YES COMMENTSDOCUMENTED IN NOTES SECTION> PATIENT HAS HISTORY OF PSYCHOSIS, DEPRESSION, ANXIETY, AND PARANOID SCHIZOPHRENIA SPECIAL DEVICES?YES :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 DIET: NO LACTOSE, REGULAR. EXERCISE: WALKS, DAILY - WHEN WEATHER PERMITS. MARITAL STATUS: SINGLE. OTHERS AT HOME: [employer] [facility] [employer] [facility] [facility] IN [place]. TODAY'S VISIT 03/23/20, PATIENT DESCRIBES PAIN : ACHING, HAVE IT ALL THE TIME, STABBING, FROM 0-10, WHAT LEVEL IS YOUR PAIN TODAY? 10, PRECIPITATING FACTORS ACTIVITY, ALLEVIATING FACTORS STRETCHES AND WALKING, IMPACT ON FUNCTION YES. - WAS THE PROVIDER NOTIFIED OF ANY PERTINENT INFO?YES HAS THE PATIENT BEEN EDUCATED REGARDING HIS/HER PLAN OF CARE?YES HAS THE PATIENT BEEN EDUCATED REGARDING PAIN, THE RISK FOR PAIN, THE IMPORTANCE OF EFFECTIVE PAIN MANAGEMENT, AND THE PAIN ASSESSMENT PROCESS?YES ADVANCE DIRECTIVE ADVANCE DIRECTIVE DISCUSSED WITH PATIENT:YES PATIENT HAS NO HCP, STATED SHE WOULD LIKE TO LOOK INTO GETTING ONE. INFORMED PATIENT THAT SHE COULD GET THE INFORMATION FROM US AT HER APPOINTMENT AND BRING IT HOME TO LOOK OVER AND FILL OUT. ALSO INFORMED HER THAT WE COULD HELP HER WITH THE FORM HERE IF SHE WOULD LIKE. REVIEW OF SYSTEMS CONSTITUTIONAL: ANY RECENT FEVER NO . CHILLS NO . WEIGHT CHANGE OF UNKNOWN REASONS NO . GASTROENTEROLOGY: NEW UNEXPLAINABLE CHANGES IN BOWEL CONTROL NO . CONSTIPATION NO . GENITOURINARY: ANY NEW CHANGE IN BLADDER CONTROL? NO . NEUROLOGY: NEW ONSET DIZZINESS OR NEUROLOGICAL CHANGES NOT MENTIONED NO . NEW NUMBNESS OR PAIN PATTERNS NOT MENTIONED AND PERTINENT TO TODAY'S VISIT NO . CARDIOLOGY: NEW CHEST PRESSURE NO . PATIENT DENIES NO . RESPIRATORY: UNEXPLAINABLE COUGH NO . NEW SHORTNESS OF BREATH NO . VITAL SIGNS WT 232.4 LBS, HT 65.5 IN, BMI 38.08 INDEX, BP 121/66 MM HG, HR 91 /MIN, RR 18 /MIN, TEMP 97.9 F, OXYGEN SAT % 94%, SAFE IN ENV? (Y/N) YES, NA INITIALS WA 14:15T.JOÃO SHIPLEY. EXAMINATION GENERAL EXAMINATION: GENERAL AWAKE,ALERT ,PLEAASANT . PSYCH AFFECT NORMAL . LUNGS: LUNG TREVIZO ARE CLEAR TO AUSCULTATION BILATERALLY. GOOD MOVEMENT OF AIR . HEART: S1, S2 IN A REGULAR RATE AND RHYTHM. NO SIGNIFICANT MURMURS, RUBS OR GALLOPS NOTED . LUMBAR: PALPATION: + FOR PAIN OVER L/S SPINE. + FOR PAIN OVER L/S PARSPINALS, . . DIAGNOSTIC TESTS REVIEWED MRI L/S SPINE-12/21/2019. MULTIPLE AREAS OF TENDER SPOTS INDICATIVE OF FIBROMYALGIA. 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 START KETOROLAC 10 MG TABLET 1 EVERY 6 HOURS 4 TIMES A DAY FOR 5 DAYS FOR ACUTE LOW BACK PAIN. LUMBAR EPIDURAL STEROID INJECTION IS SCHEDULED. FOLLOW-UP POST PROCEDURE. PRINTED AND REVIEWED PRE PROCEDURE INFORMATION, PATIENT VERBALIZED UNDERSTANDING. HAILE SHIPLEY. PROCEDURE CODES FA211 ESTABILISHED PATIENT [facility] FACILITY CHARGE DISPOSITION & COMMUNICATION FOLLOW UP POST (REASON: LUMBAR EPIDURAL STERIOD INJECTION) ELECTRONICALLY SIGNED BY BA MONTESINOS ON 05/01/2021 AT 12:54 PM EDT DISCLAIMER : THIS IS A VISIT SUMMARY EXTRACTED FROM THE [employer] CHART. IT IS NOT A COPY OF THE [employer] PROGRESS NOTE. SHAR
== END ==
LOC: M PAIN 14:15
PROVIDERS: ATTEND Nurse Practitioner Family
DX: M47.27 Other spondylosis with radiculopathy, lumbosacral region (principal); Z86.59 Personal history of other mental and behavioral disorders; Z87.891 Personal history of nicotine dependence; Z88.0 Allergy status to penicillin; Z88.1 Allergy status to other antibiotic agents; Z88.8 Allergy status to other drugs, medicaments and biological substances; Z91.011 Allergy to milk products; Z79.82 Long term (current) use of aspirin; Z79.899 Other long term (current) drug therapy

== ENCOUNTER → 2021-05-03 | Outpatient (REF) | payer MEDICARE, MEDICAID ==
[2021-05-03 12:33] LABS: BASO % 0.1 % (0.0-1.0); HEMATOCRIT 37.6 % (36.0-47.0); HEMOGLOBIN 11.7 g/dl (12.0-15.5); LYMPH # 1.7 10^3/uL (1.5-5.0); LYMPH % 24.9 % (24.0-44.0); MEAN CORPUSCULAR HEMOGLOBIN 27.1 pg (27.0-33.0); MEAN CORPUSCULAR HGB CONC 31.1 g/dl (32.0-36.5); MEAN CORPUSCULAR VOLUME 87.2 fl (80.0-96.0); MONO # 0.6 10^3/uL (0.0-0.8); NEUTROPHILS # 4.5 10^3/uL (1.5-8.5); NEUTROPHILS % 65.6 % (36.0-66.0); PLATELET COUNT, AUTOMATED 289 10^3/uL (150-450); RED BLOOD COUNT 4.31 10^6/uL (4.00-5.40); WHITE BLOOD COUNT 6.9 10^3/uL (4.0-10.0)
[2021-05-05 14:12] LABS: CLOZAPINE 1 349 ng/mL (350-650); CLOZAPINE 2 101 ng/mL (Not Estab.); CLOZAPINE 3 450 ng/mL (.)
== END ==
LOC: M LABDRAWC 11:36
PROVIDERS: ATTEND Registered Nurse
DX: F25.1 Schizoaffective disorder, depressive type (principal); Z51.81 Encounter for therapeutic drug level monitoring; Z13.9 Encounter for screening, unspecified; Z79.899 Other long term (current) drug therapy

== ENCOUNTER → 2021-05-17 | Outpatient (REF) | payer MEDICARE, MEDICAID ==
[2021-05-17 12:57] LABS: BASO % 0.1 % (0.0-1.0); HEMATOCRIT 37.6 % (36.0-47.0); HEMOGLOBIN 11.7 g/dl (12.0-15.5); LYMPH # 1.6 10^3/uL (1.5-5.0); LYMPH % 20.7 % (24.0-44.0); MEAN CORPUSCULAR HEMOGLOBIN 27.2 pg (27.0-33.0); MEAN CORPUSCULAR HGB CONC 31.1 g/dl (32.0-36.5); MEAN CORPUSCULAR VOLUME 87.4 fl (80.0-96.0); MONO # 0.5 10^3/uL (0.0-0.8); MONO % 6.5 % (2.0-8.0); NEUTROPHILS # 5.8 10^3/uL (1.5-8.5); NEUTROPHILS % 72.4 % (36.0-66.0); PLATELET COUNT, AUTOMATED 241 10^3/uL (150-450); WHITE BLOOD COUNT 7.9 10^3/uL (4.0-10.0)
== END ==
LOC: M LABDRAWC 11:47
PROVIDERS: ATTEND Registered Nurse
DX: F25.1 Schizoaffective disorder, depressive type (principal); Z51.81 Encounter for therapeutic drug level monitoring; Z13.9 Encounter for screening, unspecified; Z79.899 Other long term (current) drug therapy

== ENCOUNTER → 2021-06-08 | Outpatient (CLI) | payer MEDICARE, MEDICAID ==
--- NOTE | 2021-06-09 02:36 | ECWPNPC ---
PATIENT NAME: JUAN KELSEY : 1960 GENDER: FEMALE VISIT DATE: 06/08/2021 DISCHARGE DATE: 06/08/21 1346 VISIT LOCKED DATE TIME: PHYSICIAN: CONRAD BONE RESOURCE: CONRAD BONE REASON FOR APPOINTMENT 1. POST LUMBAR EPIDURAL STERIOD INJECTION HISTORY OF PRESENT ILLNESS GENERAL: HERE TODAY ON AN URGENT BASIS DUE TO INCREASE IN LOW BACK PAIN. SHE CALLED CLINIC LAST WEEK AND REQUESTED APPOINTMENT. PATIENT HAS DONE WELL WITH LUMBAR EPIDURAL STEROID INJECTION IN THE PAST. DISCUSSED TREATMENT PLAN. -. FALL RISK SCREENING: SCREENING : NO FALLS REPORTED IN THE LAST YEAR. PAIN SCREENING: PATIENT HAS A COMPLAINT OF ACUTE OR CHRONIC PAIN :YES LOCATION OF PAIN:LOW BACK, LEG(S) INTENSITY OF PAIN (SCALE OF 1 TO 10):9 WHAT DOES YOUR PAIN FEEL LIKE:STABBING DURATION:CONTINOUS, CONSTANT, ALL DAY PAIN IS INCREASED BY:OTHERS LAYING DOWN PAIN IS DECREASED BY:SITTING NURSING NOTE: -. PAIN CENTER INTAKE QUESTIONS: DO YOU HAVE A HISTORY OF MRSA? :NO DO YOU TAKE A BLOOD THINNERS? :NO ASPIRIN 81 81 MG DO YOU HAVE ANY BLEEDING DISORDERS? :NO ANY NEW NUMBNESS OR WEAKNESS IN YOUR LEGS OR ARMS? :NO ANY PACEMAKER,DEFIBRILLATOR, OR DORSAL COLUMN STIMULATOR? :NO DO YOU HAVE ANY RASHES OR OPEN SORES? :NO ARE YOU ALLERGIC TO IV DYE? :NO ARE YOU DIABETIC? :NO PATIENT STATED BORDERLINE ANY NEW PROBLEMS WITH YOUR MEDICATIONS? :NO HAVE YOU RECEIVED A VACCINE IN THE PAST 30 DAYS? :NO DO YOU PLAN TO RECEIVE A VACCINE IN THE NEXT 21 DAYS? :NO DO YOU NEED ANY PRESCRIPTION? :NO DO YOU TAKE ANY IMMUNOSUPPRESSIVE MEDICATIONS? :NO IS THERE A CHANCE YOU COULD BE ? :NO ARE YOU BREAST FEEDING? :NO CURRENT MEDICATIONS TAKING HALOPERIDOL 5 MG TABLET 1 TABLET ORALLY TWICE A DAY TAKING LEVOTHYROXINE SODIUM 25 MCG TABLET 1 TABLET IN THE MORNING ON AN EMPTY STOMACH ORALLY ONCE A DAY TAKING LISINOPRIL 5 MG TABLET 1 TABLET ORALLY ONCE A DAY TAKING ATIVAN 0.5 MG TABLET 1 TABLET NEEDED ORALLY BID TAKING OXYBUTYNIN CHLORIDE 5 MG TABLET 1 TABLET ORALLY DAILY TAKING SERTRALINE HCL 100 MG TABLET 2 TABLETS ORALLY ONCE A DAY TAKING TRIHEXYPHENIDYL HCL 2 MG TABLET 1 TABLET ORALLY BEFORE BEDTIME TAKING CLOZARIL 200 MG TABLET , 1 TABLETS AT BEDTIME ORALLY AT BEDTIME TAKING CHOLECALCIFEROL 50 MCG (1999) CAPSULE 1 CAPSULE ORALLY ONCE A DAY TAKING ASPIRIN 81 81 MG TABLET DELAYED RELEASE 1 TABLET ORALLY ONCE A DAY TAKING ATORVASTATIN CALCIUM 10 MG TABLET 1 TABLET ORALLY BEFORE BEDTIME TAKING ACETAMINOPHEN 325 MG TABLET 1 TABLET NEEDED ORALLY BID TAKING CLOZAPINE 200 MG TABLET 1 TABLET ORALLY ONCE A DAY TAKING VITAMIN E 400 UNIT TABLET 1 TABLET ORALLY ONCE A DAY TAKING MELATONIN 5 MG TABLET 1 TABLET IN THE EVENING ORALLY NEEDED ONCE A DAY TAKING LYRICA 100 MG CAPSULE 1 CAPSULE ORALLY BID MDD2 TAKING KETOROLAC TROMETHAMINE 10 MG TABLET 1 TABLET WITH FOOD OR MILK NEEDED ORALLY EVERY 6 HRS TAKING MOBIC 15 MG TABLET 1 TABLET ORALLY ONCE A DAY NOT-TAKING COLACE 100 MG CAPSULE 2 CAPSULES ORALLY DAILY NEEDED NOT-TAKING AMBIEN 5 MG TABLET 1/2 TABLET ORALLY TWICE A DAY NOT-TAKING MOBIC 15 MG TABLET 1 TABLET ORALLY ONCE A DAY NOT-TAKING LACTULOSE 10 GM/15ML SOLUTION 15 ML ORALLY ONCE A DAY NOT-TAKING MELOXICAM 15 MG TABLET 1 TABLET ORALLY ONCE A DAY NOT-TAKING MAGNESIUM 100 MG TABLET 4 TABLETS WITH A MEAL ORALLY ONCE A DAY NOT-TAKING MAGNESIUM OXIDE 400 240 MG PACKET DIRECTED ORALLY NOT-TAKING METFORMIN HCL 500 MG TABLET 1 TABLET WITH A MEAL ORALLY ONCE A DAY NOT-TAKING GABAPENTIN 100 MG CAPSULE 2 CAPSULE ORALLY TID X7DAYS,BID X7DAYS,1 DAILY X7 DAYS THEN STOP NOT-TAKING NITROFURANTOIN MACROCRYSTAL 100 MG CAPSULE 1 CAPSULE WITH FOOD OR MILK ORALLY BID NOT-TAKING ATORVASTATIN CALCIUM 10 MG TABLET 1 TABLET ORALLY ONCE A DAY, NOTES: DUPLICATE NOT-TAKING CLOZARIL 25 MG TABLET 1 TABLET ORALLY ONCE A DAY, NOTES: DUPLICATE NOT-TAKING LIPITOR 10 MG TABLET 1 TABLET ORALLY ONCE A DAY, NOTES: DUPLICATE MEDICATION LIST REVIEWED AND RECONCILED WITH THE PATIENT PAST MEDICAL HISTORY DIABETES BORDERLINE HTN HIGH CHOLESTEROL KIDNEY PROBLEMS ANXIETY DEPRESSION PSYCHOSIS PARANOID SCHIZOPHRENIA THYROID DISORDER? GLAUCOMA PSEUDO-SEIZURES UTI 2020 ALLERGIES PENICILLIN (FOR ALLERGIES USE ONLY): RASH - ALLERGY SULFA (FOR ALLERGY USE ONLY): NAUSEA/VOMITING - ALLERGY LACTOSE: NAUSEA/VOMITING - ALLERGY MELLARIL: NAUSEA/VOMITING - ALLERGY AMBIEN: SICK SOCIAL HISTORY GENERAL: TOBACCO USE ARE YOU A:FORMER SMOKER 2001 HOW LONG HAS IT BEEN SINCE YOU LAST SMOKED?> 10 YEARS LATEX QUESTIONNAIRE LATEX ALLERGY : HAVE YOU EVER DEVELOPED ANY TYPE OF REACTION AFTER HANDLING LATEX PRODUCTS SUCH RUBBER GLOVES, CONDOMS, DIAPHRAGMS, BALLOONS, SOCKS, OR UNDERWEAR?NO LATEX ALLERGY : HAVE YOU EVER DEVELOPED ANY TYPE OF REACTION DURING OR AFTER DENTAL APPOINTMENT, VAGINAL/RECTAL EXAMINATION, SURGICAL PROCEDURE, OR ANY OTHER EXPOSURE?NO LATEX RISK : HAVE YOU EVER HAD ANY DIFFICULTY BREATHING OR HIVES AFTER EATING OR HANDLING ANY FRUITS, OR VEGETABLES; SUCH KIWI, BANANAS, STONE FRUITS, OR CHESTNUTSNO LATEX RISK : DO YOU HAVE A PREVIOUS PERSONAL HISTORY OF MORE THAN NINE SURGERIES, SPINA BIFIDA, OR REPEATED CATHERIZATIONS? NO LATEX RISK : ARE YOU FREQUENTLY EXPOSED TO LATEX PRODUCTS IN YOUR OCCUPATION?NO DATE ASKED : 06/08/2021 ALCOHOL USE: NO. ALCOHOL SCREENING DID YOU HAVE A DRINK CONTAINING ALCOHOL IN THE PAST YEAR?NO POINTS0 INTERPRETATIONNEGATIVE RECREATIONAL DRUG USE DRUG USE?NO CAFFEINE CAFFEINE USE?YES SODA AND COFFEE LANGUAGE LANGUAGES SPOKEN:SAMI LEARNING BARRIERS / SPECIAL NEEDS CHANGE FROM LAST VISIT?NO BARRIERS TO LEARNING?YES COMMENTSDOCUMENTED IN NOTES SECTION> SEE BELOW HEARING IMPAIRED?YES : IN BILATERAL EAR VISION IMPAIRED?NO COGNITIVELY IMPAIRED?NO READINESS TO LEARN?YES LEARNING PREFERENCES?YES :TAPES/VIDEOS, BOOKLETS, HANDOUTS LEARNING CAPABILITIES PRESENT?YES EMOTIONAL BARRIERS?YES COMMENTSDOCUMENTED IN NOTES SECTION> PATIENT HAS HISTORY OF PSYCHOSIS, DEPRESSION, ANXIETY, AND PARANOID SCHIZOPHRENIA SPECIAL DEVICES?YES :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 DIET: NO LACTOSE, REGULAR. EXERCISE: WALKS, DAILY - WHEN WEATHER PERMITS. MARITAL STATUS: SINGLE. OTHERS AT HOME: [employer] - [employer] [facility] IN [place]. TODAY'S VISIT 03/23/20, PATIENT DESCRIBES PAIN : ACHING, HAVE IT ALL THE TIME, STABBING, FROM 0-10, WHAT LEVEL IS YOUR PAIN TODAY? 10, PRECIPITATING FACTORS ACTIVITY, ALLEVIATING FACTORS STRETCHES AND WALKING, IMPACT ON FUNCTION YES. - WAS THE PROVIDER NOTIFIED OF ANY PERTINENT INFO?YES HAS THE PATIENT BEEN EDUCATED REGARDING HIS/HER PLAN OF CARE?YES HAS THE PATIENT BEEN EDUCATED REGARDING PAIN, THE RISK FOR PAIN, THE IMPORTANCE OF EFFECTIVE PAIN MANAGEMENT, AND THE PAIN ASSESSMENT PROCESS?YES ADVANCE DIRECTIVE ADVANCE DIRECTIVE DISCUSSED WITH PATIENT:YES PATIENT HAS NO HCP, STATED SHE WOULD LIKE TO LOOK INTO GETTING ONE. INFORMED PATIENT THAT SHE COULD GET THE INFORMATION FROM US AT HER APPOINTMENT AND BRING IT HOME TO LOOK OVER AND FILL OUT. ALSO INFORMED HER THAT WE COULD HELP HER WITH THE FORM HERE IF SHE WOULD LIKE. REVIEW OF SYSTEMS CONSTITUTIONAL: ANY RECENT FEVER NO . CHILLS NO . WEIGHT CHANGE OF UNKNOWN REASONS NO . GASTROENTEROLOGY: NEW UNEXPLAINABLE CHANGES IN BOWEL CONTROL NO . CONSTIPATION NO . GENITOURINARY: ANY NEW CHANGE IN BLADDER CONTROL? NO . NEUROLOGY: NEW ONSET DIZZINESS OR NEUROLOGICAL CHANGES NOT MENTIONED NO . NEW NUMBNESS OR PAIN PATTERNS NOT MENTIONED AND PERTINENT TO TODAY'S VISIT NO . CARDIOLOGY: NEW CHEST PRESSURE NO . PATIENT DENIES NO . RESPIRATORY: UNEXPLAINABLE COUGH NO . NEW SHORTNESS OF BREATH NO . VITAL SIGNS WT 234.0 LBS, WT-KG 106.14 KG, HT 65.5 IN, BMI 38.34 INDEX, BP 139/68 MM HG, HR 72 /MIN, RR 18 /MIN, TEMP 98.3 F, OXYGEN SAT % 98%, SAFE IN ENV? (Y/N) YES, NA INITIALS AW 1316T.JOÃO SHIPLEY. EXAMINATION GENERAL EXAMINATION: GENERAL AWAKE,ALERT ,PLEAASANT . PSYCH AFFECT NORMAL . LUNGS: LUNG TREVIZO ARE CLEAR TO AUSCULTATION BILATERALLY. GOOD MOVEMENT OF AIR . HEART: S1, S2 IN A REGULAR RATE AND RHYTHM. NO SIGNIFICANT MURMURS, RUBS OR GALLOPS NOTED . LUMBAR: PALPATION: + FOR PAIN OVER L/S SPINE. + FOR PAIN OVER L/S PARSPINALS, . . DIAGNOSTIC TESTS REVIEWED MRI L/S SPINE-12/21/2019. MULTIPLE AREAS OF TENDER SPOTS INDICATIVE OF FIBROMYALGIA. 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 VISIT CODES 90391 OFFICE VISIT, EST PT., LEVEL 3. PROCEDURE CODES FA211 ESTABILISHED PATIENT [facility] FACILITY CHARGE DISPOSITION & COMMUNICATION FOLLOW UP POST (REASON: LUMBAR EPIDURAL STERIOD INJECTION) ELECTRONICALLY SIGNED BY BA MONTESINOS ON 06/08/2021 AT 02:51 PM EDT DISCLAIMER : THIS IS A VISIT SUMMARY EXTRACTED FROM THE [employer] CHART. IT IS NOT A COPY OF THE [employer] PROGRESS NOTE. SHAR
== END ==
LOC: M PAIN 13:15
PROVIDERS: ATTEND Nurse Practitioner Family
DX: M47.27 Other spondylosis with radiculopathy, lumbosacral region (principal); E03.9 Hypothyroidism, unspecified; Z86.59 Personal history of other mental and behavioral disorders; Z87.891 Personal history of nicotine dependence; Z88.0 Allergy status to penicillin; Z88.2 Allergy status to sulfonamides; Z88.8 Allergy status to other drugs, medicaments and biological substances; Z91.011 Allergy to milk products; Z79.82 Long term (current) use of aspirin; Z79.899 Other long term (current) drug therapy

== ENCOUNTER → 2021-06-12 | Outpatient (REF) | payer MEDICARE, MEDICAID ==
[~2021-06-12] MED LIST changes: +ACET32TAB PO; +AMLO1TAB25 PO; +CYCL5TAB PO; +FERR325T3 PO; +HALO10TA2 PO; +HALO10TA20 PO; -HALO5TA PO; +HALO5TAB33 PO; +LEVO500T4 PO; -LISI-898 PO; +LISI5TAB11 PO; +LOPE1CAP5 PO; +LYRI75CA PO; +MELA10CA PO; +META28.32 PO; +MILK400S19 PO; +MUSCCRE9 TOP; +MYLASSUD FT; +NOXI1TAB PO; +OXYC-403 PO; +OXYC-517 PO; +PATIENT COMMENT; +PERCOCET PO; +PRED10TA2 PO; +TRAM50TA2 PO; +TRAZ-252 PO; +VITA400C81 PO
[2021-06-12 11:56] LABS: BASO % 0.1 % (0.0-1.0); HEMATOCRIT 37.6 % (36.0-47.0); HEMOGLOBIN 11.7 g/dl (12.0-15.5); LYMPH # 1.9 10^3/uL (1.5-5.0); LYMPH % 26.8 % (24.0-44.0); MEAN CORPUSCULAR HEMOGLOBIN 27.1 pg (27.0-33.0); MEAN CORPUSCULAR HGB CONC 31.1 g/dl (32.0-36.5); MEAN CORPUSCULAR VOLUME 87.2 fl (80.0-96.0); MONO # 0.4 10^3/uL (0.0-0.8); MONO % 6.1 % (2.0-8.0); NEUTROPHILS # 4.7 10^3/uL (1.5-8.5); NEUTROPHILS % 66.4 % (36.0-66.0); PLATELET COUNT, AUTOMATED 274 10^3/uL (150-450); RED BLOOD COUNT 4.31 10^6/uL (4.00-5.40)
[2021-06-14 15:08] LABS: CLOZAPINE 1 <20 ng/mL (350-650); CLOZAPINE 2 <20 ng/mL (Not Estab.); CLOZAPINE 3 <40 ng/mL (.)
== END ==
LOC: M LABDRAWC 11:41
PROVIDERS: ATTEND Registered Nurse
DX: Z13.9 Encounter for screening, unspecified (principal); Z51.81 Encounter for therapeutic drug level monitoring; F25.1 Schizoaffective disorder, depressive type; Z79.899 Other long term (current) drug therapy

== ENCOUNTER → 2021-06-15 | Outpatient (CLI) | payer MEDICARE, MEDICAID ==
[~2021-06-15] MED LIST changes: -ACET32TAB PO; -AMLO1TAB25 PO; -CYCL5TAB PO; -FERR325T3 PO; -HALO10TA2 PO; -HALO10TA20 PO; +HALO5TA PO; -HALO5TAB33 PO; -LEVO500T4 PO; +LISI-898 PO; -LISI5TAB11 PO; -LOPE1CAP5 PO; -LYRI75CA PO; -MELA10CA PO; -META28.32 PO; -MILK400S19 PO; -MUSCCRE9 TOP; -MYLASSUD FT; -NOXI1TAB PO; -OXYC-403 PO; -OXYC-517 PO; -PATIENT COMMENT; -PERCOCET PO; -PRED10TA2 PO; -TRAM50TA2 PO; -TRAZ-252 PO; -VITA400C81 PO
== END ==
LOC: M LABSMTC 13:33
PROVIDERS: ATTEND Anesthesiology
DX: Z20.822 Contact with and (suspected) exposure to COVID-19 (principal)

== ENCOUNTER 2021-07-09 09:37 | Inpatient (IN) | payer MEDICARE, MEDICAID ==
[~2021-07-09] VITALS: Ht 165.1 cm; Wt 101.2 kg
[2021-07-09 10:43] LABS: HEMATOCRIT 39.8 % (36.0-47.0); MEAN CORPUSCULAR HEMOGLOBIN 28.2 pg (27.0-33.0); MEAN CORPUSCULAR HGB CONC 32.7 g/dl (32.0-36.5); MEAN CORPUSCULAR VOLUME 86.3 fl (80.0-96.0); PLATELET COUNT, AUTOMATED 271 10^3/uL (150-450); RED BLOOD COUNT 4.61 10^6/uL (4.00-5.40); WHITE BLOOD COUNT 8.6 10^3/uL (4.0-10.0)
[2021-07-09 11:17] LABS: ACETAMINOPHEN LEVEL < 2.0 UG/ML (10.0-30.0); ALBUMIN 3.6 GM/DL (3.2-5.2); ALT/SGPT 22 U/L (12-78); BILIRUBIN,DIRECT 0.1 MG/DL (0.0-0.2); BILIRUBIN,TOTAL 0.3 MG/DL (0.2-1.0); BLOOD UREA NITROGEN 23 MG/DL (7-18); CALCIUM LEVEL 9.8 MG/DL (8.8-10.2); CARBON DIOXIDE LEVEL 25 MEQ/L (21-32); CHLORIDE LEVEL 106 MEQ/L (98-107); GLOMERULAR FILTRATION RATE > 60.0 (>45); GLUCOSE, FASTING 98 MG/DL (70-100); POTASSIUM SERUM 4.1 MEQ/L (3.5-5.1); SALICYLATE LEVEL < 1.7 MG/DL (5.0-30.0); SODIUM LEVEL 138 MEQ/L (136-145); TOTAL PROTEIN 6.9 GM/DL (6.4-8.2)
[2021-07-09 11:18] LABS: ETHYL ALCOHOL (ETHANOL) < 0.003 % (0.000-0.010)
[2021-07-09 15:01] LABS: AMPHETAMINES LEVEL URINE NEGATIVE (NEGATIVE); BARBITURATES URINE NEGATIVE (NEGATIVE); BENZODIAZEPINES URINE POSITIVE (NEGATIVE); CANNABINOIDS URINE NEGATIVE (NEGATIVE); COCAINE METABOLITE URINE NEGATIVE (NEGATIVE); METHADONE URINE NEGATIVE (NEGATIVE); OPIATES URINE POSITIVE (NEGATIVE); PHENCYCLIDINE URINE NEGATIVE (NEGATIVE)
[2021-07-09] MEDS ORDERED: FERR325T3 PO (16:29)
[2021-07-09] MEDS ORDERED: PREG100C PO (16:29)
[2021-07-09] MEDS ORDERED: TRAZ-252 PO (16:29)
[2021-07-09] MEDS ORDERED: MELA10CA PO (17:41)
[2021-07-09] MEDS ORDERED: LOPE1CAP5 PO (17:41)
[2021-07-09] MEDS ORDERED: META28.32 PO (17:41)
[2021-07-09] MEDS ORDERED: VITA400C81 PO (17:41)
[2021-07-09] MEDS ORDERED: HOME MED LIST COMPLETE! XX SCH (17:45)
[2021-07-10] MEDS ORDERED: PREGABALIN 100 MG CAP (LYRICA) PO ONE ×2 (03:00→20:50)
[2021-07-10] MEDS ORDERED: RAMELTEON 8 MG TAB (ROZEREM) PO ONE (03:00)
[2021-07-10] MEDS ORDERED: traZODone 50 MG TAB PO ONE ×2 (03:00→20:50)
--- NOTE | 2021-07-10 16:50 | ECGEPIP ---
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
[2021-07-10] MEDS ORDERED: ATORVASTATIN 20 MG TAB PO ONE (20:50)
[2021-07-10] MEDS ORDERED: haloperidoL 5 MG TAB PO ONE (20:50)
[2021-07-10] MEDS ORDERED: TRIHEXYPHENIDYL 2 MG TAB PO ONE (20:50)
[2021-07-11] MEDS ORDERED: ACETAMINOPHEN TAB 650MG DOSE (2X325MG) PO ONE (03:10)
[2021-07-11] MEDS ORDERED: LEVOTHYROXINE 25MCG TABLET (0.025MG) PO SCH (06:00)
[2021-07-11] MEDS ORDERED: LEVOTHYROXINE 25MCG TABLET (0.025MG) PO ONE (06:50)
[2021-07-11] MEDS: LOPERAMIDE 2 MG CAPLET PO SCH (08:05)
[2021-07-11] MEDS ORDERED: SERTRALINE 100 MG TAB PO SCH (09:00)
[2021-07-11] MEDS ORDERED: VITAMIN D 1,000 INTERNATIONAL UNITS TABLET PO SCH (09:00)
[2021-07-11] MEDS ORDERED: lisinopriL 5 MG TAB PO SCH (09:00)
[2021-07-11] MEDS ORDERED: haloperidoL 5 MG TAB PO SCH (09:00)
[2021-07-11] MEDS ORDERED: METAMUCIL (PSYLLIUM) PACKET PO SCH (09:00)
[2021-07-11] MEDS ORDERED: DOCUSATE SODIUM 100MG CAPSULE PO SCH (09:00)
[2021-07-11] MEDS ORDERED: PREGABALIN 100 MG CAP (LYRICA) PO SCH (09:00)
[2021-07-11] MEDS ORDERED: VITAMIN E 400 INTERNATIONAL UNITS CAP PO SCH (09:00)
[2021-07-11] MEDS ORDERED: ASPIRIN 81 MG CHEW TABLET PO SCH (09:00)
[2021-07-11] MEDS ORDERED: FERROUS SULFATE 325MG TAB PO SCH (09:00)
[2021-07-11] MEDS ORDERED: MELOXICAM (MOBIC) 7.5 MG TAB PO SCH (09:00)
[2021-07-11] MEDS ORDERED: LORazepam 0.5 MG TAB PO STA (09:53)
[2021-07-11 12:23] LABS: RSV AMPLIFICATION NEGATIVE (NEGATIVE)
[2021-07-11] MEDS ORDERED: NICOTINE 21MG/24HR 1 EA TRANSDERMAL TD PRN (13:45)
[2021-07-11] MEDS ORDERED: MAALOX 30 ML SUSP *UDC PO PRN (13:45)
[2021-07-11] MEDS ORDERED: MOM 30ML SUSPENSION UDC PO PRN (13:45)
[2021-07-11] MEDS ORDERED: traZODone 50 MG TAB PO PRN (13:45)
[2021-07-11] MEDS ORDERED: LORazepam 0.5 MG TAB PO PRN (15:10)
[2021-07-11 17:08] VITALS: BP 145/87
[2021-07-11] MEDS ORDERED: BENZTROPINE MESYLATE 2MG/2ML VIAL IM ONE (18:20)
[2021-07-11] MEDS ORDERED: traZODone 50 MG TAB PO SCH (21:00)
[2021-07-11] MEDS ORDERED: TRIHEXYPHENIDYL 2 MG TAB PO SCH ×2 (21:00)
[2021-07-11] MEDS ORDERED: ATORVASTATIN 10 MG TAB PO SCH (21:00)
[2021-07-12] MEDS: ATORVASTATIN 10 MG TAB PO SCH ×2 (01:05→20:58)
[2021-07-12] MEDS: PREGABALIN 100 MG CAP (LYRICA) PO SCH ×3 (01:06→20:58)
[2021-07-12] MEDS: haloperidoL 5 MG TAB PO SCH ×2 (01:06→09:16)
[2021-07-12] MEDS: traZODone 50 MG TAB PO SCH ×2 (01:06→20:57)
[2021-07-12] MEDS: LEVOTHYROXINE 25MCG TABLET (0.025MG) PO SCH (06:28)
[2021-07-12] MEDS ORDERED: METAMUCIL (PSYLLIUM) PACKET PO SCH (09:00)
[2021-07-12] MEDS ORDERED: DOCUSATE SODIUM 100MG CAPSULE PO SCH (09:00)
[2021-07-12] MEDS: ASPIRIN 81MG ENTERIC TABLET PO SCH (09:15)
[2021-07-12] MEDS: FERROUS SULFATE 325MG TAB PO SCH (09:15)
[2021-07-12] MEDS: MELOXICAM (MOBIC) 7.5 MG TAB PO SCH (09:16)
[2021-07-12] MEDS: LOPERAMIDE 2 MG CAPLET PO SCH (09:16)
[2021-07-12] MEDS: SERTRALINE 100 MG TAB PO SCH (09:16)
[2021-07-12] MEDS: lisinopriL 5 MG TAB PO SCH (09:16)
[2021-07-12] MEDS: VITAMIN D 1,000 INTERNATIONAL UNITS TABLET PO SCH (09:16)
[2021-07-12] MEDS: VITAMIN E 400 INTERNATIONAL UNITS CAP PO SCH (09:18)
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
[2021-07-12] MEDS: LORazepam 2 MG TAB PO ONE ×2 (16:15→16:21)
[2021-07-12] MEDS: BENZTROPINE 2 MG TAB PO SCH (20:57)
--- NOTE | 2021-07-12 21:34 | HPEPDOC ---
[facility] Medical History & Physical Date of Admission Jul 11, 2021 Date of Service: Jul 12, 2021 History and Physical CHIEF COMPLAINT: Medical health screening HISTORY OF PRESENT ILLNESS: Mrs. Bustamante is a 61-year-old female who was in the inpatient mental health unit for suicidal ideation. Patient was on the way to the ER for chronic back pain and leg pain. On the way to the ER, she told EMS that she was having suicidal thoughts. In the ER, she had plans to either jump off a bridge or cut her wrist. Patient was sent to inpatient mental health unit. I tried to see her this afternoon with the nurse. We found the patient in another room. We asked to see her, but she screamed out loud asking for us to go. She refused to see me. I attempted later in the evening, but patient still refused. PAST MEDICAL HISTORY: 1. Partially compensated communicating hydrocephalus 2. CKD stage II-III 3. GERD 4. Overactive bladder 5. Vitamin D deficiency 6. Jih-tsgcfie-kjdelqkyg diabetes mellitus 7. Hypertension 8. Hyperlipidemia 9. Seizure disorder 10. Schizophrenia 11. Compression fracture C7 12. Cervical lumbar spondylosis PAST SURGICAL HISTORY: 1. Left ear surgery 2. Left kidney repair as a child SOCIAL HISTORY: Tobacco use: Per chart, patient is a former smoker. Quit in 2001 ETOH: Per chart, patient denies any alcohol use Illicit drug use: Per chart patient denies any recreational drug use FAMILY HISTORY: Father: in his 80s due to unknown medical problems Mother: in her 70s secondary to motor vehicle accident ALLERGIES: Please see below. REVIEW OF SYSTEMS: Unable to obtain ROS as patient refused interview HOME MEDICATIONS: Please see below. PHYSICAL EXAMINATION: VITAL SIGNS: Temperature 98.7, pulse 102, respiratory rate 18, blood pressure 145/87, pulse oximetry 98% on room air. GENERAL APPEARANCE: In no apparent distress HEENT: Sclera white NEUROLOGICAL: Ambulates with walker PSYCHIATRIC: Anxious Unable to perform full physical exam due to patient's refused. Exam above are observations from afar LABORATORY DATA: See below. IMAGING: None MICROBIOLOGY: Please see below. ASSESSMENT and PLAN: 1. Suicidal ideation Being managed in the inpatient mental health unit -Unable to evaluate patient due to patient refusal. Information obtained from chart 2. Hypothyroidism Continue levothyroxine 3. Hypertension Continue lisinopril 4. Chronic pain Continue meloxicam and pregabalin 5. Hyperlipidemia Continue atorvastatin We will sign off at this time. If patient changes mind and requests to see hospitalist or if patient status change, please do not hesitate to reconsult us. Vital Signs Vital Signs Date Time Temp Pulse Resp B/P (MAP) Pulse Ox O2 Delivery O2 Flow Rate FiO2 07/12/21 09:16 145/87 07/11/21 17:08 98.7 102 18 98 Room Air Home Medications Scheduled Aspirin (Aspirin EC) 81 Mg Tab, 81 MG PO DAILY Atorvastatin Calcium (Atorvastatin Calcium) 10 Mg Tablet, 10 MG PO QHS Cholecalciferol (Vitamin D3) (Vitamin D3) 1,000 Unit Tablet, 2,000 UNITS PO DAILY Docusate Sodium (Docusate Sodium) 100 Mg Tab, 100 MG PO DAILY Ferrous Sulfate (Ferrous Sulfate) 325 Mg Tablet.dr, 325 MG PO DAILY Haloperidol (Haloperidol) 5 Mg Tablet, 5 MG PO BID Levothyroxine Sodium (Synthroid) 25 Mcg Tablet, 25 MCG PO QAM Lisinopril (Lisinopril) 5 Mg Tablet, 5 MG PO DAILY Loperamide HCl (Loperamide) 2 Mg Capsule, 2 MG PO DAILY Melatonin (Melatonin) 10 Mg Capsule, 10 MG PO QHS Meloxicam (Meloxicam) 15 Mg Tablet, 15 MG PO DAILY Pregabalin (Pregabalin) 100 Mg Capsule, 100 MG PO BID Psyllium Husk (with Sugar) (Metamucil Powder) 575 Gm Powder, 1 PKT PO DAILY MIX IN WATER Sertraline Hcl (Zoloft) 100 Mg Tablet, 200 MG PO DAILY Trazodone HCl (Trazodone HCl) 50 Mg Tablet, 50 MG PO QHS Trihexyphenidyl HCl (Trihexyphenidyl HCl) 2 Mg Tablet, 2 MG PO QHS Vitamin E (Dl,Tocopheryl Acet) (Vitamin E) 180 Mg (400 Unit) Capsule, 400 UNITS PO DAILY Scheduled PRN Lorazepam (Ativan) 0.5 Mg Tablet, 0.25 MG PO BID PRN for anxiety Allergies Coded Allergies: Penicillins (Verified Allergy, Unknown, rash/hives, 05/21/20) Sulfa (Sulfonamide Antibiotics) (Verified Allergy, Unknown, n/v, 05/21/20) "I get deathly ill, I feel like I'm dying." fluoxetine (Verified Allergy, Unknown, SI, 05/21/20) thioridazine (Verified Allergy, Unknown, 05/21/20) valproic acid (Verified Allergy, Unknown, SEDATION, 05/21/20) A-FIB/CHADSVASC A-FIB History Current/History of A-Fib/PAF?: No RYLAND BRADFORD DO Jul 12, 2021 17:09
[2021-07-13] MEDS: haloperidoL 5 MG TAB PO PRN (00:48)
[2021-07-13] MEDS: LORazepam 2 MG TAB PO PRN (00:48)
[2021-07-13 02:22] VITALS: BP 122/73
--- NOTE | 2021-07-13 04:42 | REPVR ---
PROCEDURE INFORMATION: Exam: XR Right Forearm Exam date and time: 07/13/2021 2:45 AM Age: 61 years old Clinical indication: Pain; Lower or forearm; Right; Additional info: Elbow pain sp fall TECHNIQUE: Imaging protocol: XR Right forearm. Views: 2 views. COMPARISON: No relevant prior studies available. FINDINGS: Bones/joints: There is no evidence of acute fracture or dislocation. Soft tissues: The soft tissues appear unremarkable. IMPRESSION: No fracture identified in the right forearm. Dedicated imaging of the elbow and/or the wrist is recommended if there is pain at those sites. Electronically signed by: Siobhan Lazo On 07/13/2021 04:42:46 AM
--- NOTE | 2021-07-13 04:43 | REPVR ---
PROCEDURE INFORMATION: Exam: XR Left Hip Exam date and time: 07/13/2021 2:45 AM Age: 61 years old Clinical indication: Hip pain; Left hip; Additional info: Left hip pain sp fall TECHNIQUE: Imaging protocol: XR Left hip. Views: 2 or 3 views hip with pelvis when performed. COMPARISON: CR Spine. Lumbosacral, complete 11/15/2014 8:25 AM FINDINGS: Bones/joints: There is no evidence of acute fracture or dislocation. The left hip joint space appears normal. No osteophytes or erosions are identified. Soft tissues: The soft tissues appear unremarkable. IMPRESSION: No fracture identified. Electronically signed by: Siobhan Lazo On 07/13/2021 04:43:46 AM
[2021-07-13] MEDS: LEVOTHYROXINE 25MCG TABLET (0.025MG) PO SCH (06:00)
[2021-07-13] MEDS: FERROUS SULFATE 325MG TAB PO SCH (09:07)
[2021-07-13] MEDS: ASPIRIN 81MG ENTERIC TABLET PO SCH (09:07)
[2021-07-13] MEDS: VITAMIN D 1,000 INTERNATIONAL UNITS TABLET PO SCH (09:07)
[2021-07-13] MEDS: SERTRALINE 100 MG TAB PO SCH (09:08)
[2021-07-13] MEDS: MELOXICAM (MOBIC) 7.5 MG TAB PO SCH (09:08)
[2021-07-13] MEDS: VITAMIN E 400 INTERNATIONAL UNITS CAP PO SCH (09:08)
[2021-07-13] MEDS: BENZTROPINE 2 MG TAB PO SCH ×2 (09:09→21:00)
[2021-07-13] MEDS: PREGABALIN 100 MG CAP (LYRICA) PO SCH ×2 (09:09→21:00)
[2021-07-13] MEDS: lisinopriL 5 MG TAB PO SCH (09:10)
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
[2021-07-13 17:51] VITALS: BP 154/81
[2021-07-13] MEDS: ATORVASTATIN 10 MG TAB PO SCH (21:00)
[2021-07-13] MEDS: traZODone 50 MG TAB PO SCH (21:00)
[2021-07-14] MEDS: LEVOTHYROXINE 25MCG TABLET (0.025MG) PO SCH (05:49)
[2021-07-14] MEDS: PREGABALIN 100 MG CAP (LYRICA) PO SCH ×2 (09:05→21:00)
[2021-07-14] MEDS: ASPIRIN 81MG ENTERIC TABLET PO SCH (09:05)
[2021-07-14] MEDS: VITAMIN E 400 INTERNATIONAL UNITS CAP PO SCH (09:06)
[2021-07-14] MEDS: BENZTROPINE 2 MG TAB PO SCH ×2 (09:06→21:00)
[2021-07-14] MEDS: VITAMIN D 1,000 INTERNATIONAL UNITS TABLET PO SCH (09:06)
[2021-07-14] MEDS: MELOXICAM (MOBIC) 7.5 MG TAB PO SCH (09:06)
[2021-07-14] MEDS: SERTRALINE 100 MG TAB PO SCH (09:07)
[2021-07-14] MEDS: FERROUS SULFATE 325MG TAB PO SCH (09:08)
[2021-07-14 09:25] VITALS: BP 174/110
[2021-07-14] MEDS: lisinopriL 5 MG TAB PO SCH (09:30)
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
[2021-07-14 14:57] LABS: HEMATOCRIT 40.7 % (36.0-47.0); HEMOGLOBIN 12.9 g/dl (12.0-15.5); MEAN CORPUSCULAR HEMOGLOBIN 27.6 pg (27.0-33.0); MEAN CORPUSCULAR HGB CONC 31.7 g/dl (32.0-36.5); MEAN CORPUSCULAR VOLUME 87.2 fl (80.0-96.0); PLATELET COUNT, AUTOMATED 476 10^3/uL (150-450); RED BLOOD COUNT 4.67 10^6/uL (4.00-5.40); WHITE BLOOD COUNT 18.4 10^3/uL (4.0-10.0)
[2021-07-14 15:21] LABS: CALCIUM LEVEL 9.9 MG/DL (8.8-10.2); CREATININE FOR GFR 1.63 MG/DL (0.55-1.30); GLOMERULAR FILTRATION RATE 34.3 (>45); POTASSIUM SERUM 4.2 MEQ/L (3.5-5.1)
[2021-07-14 18:55] VITALS: BP 142/84
[2021-07-14] MEDS: traZODone 50 MG TAB PO SCH (21:00)
[2021-07-14] MEDS: ATORVASTATIN 10 MG TAB PO SCH (21:00)
[2021-07-15] MEDS: LEVOTHYROXINE 25MCG TABLET (0.025MG) PO SCH (06:00)
[2021-07-15 08:46] VITALS: BP 162/92
[2021-07-15] MEDS: SERTRALINE 100 MG TAB PO SCH (08:46)
[2021-07-15] MEDS: VITAMIN E 400 INTERNATIONAL UNITS CAP PO SCH (08:46)
[2021-07-15] MEDS: PREGABALIN 100 MG CAP (LYRICA) PO SCH ×2 (08:46→21:00)
[2021-07-15] MEDS: ASPIRIN 81MG ENTERIC TABLET PO SCH (08:46)
[2021-07-15] MEDS: FERROUS SULFATE 325MG TAB PO SCH (08:46)
[2021-07-15] MEDS: lisinopriL 5 MG TAB PO SCH (08:47)
[2021-07-15] MEDS: VITAMIN D 1,000 INTERNATIONAL UNITS TABLET PO SCH (08:47)
[2021-07-15] MEDS: MELOXICAM (MOBIC) 7.5 MG TAB PO SCH (08:48)
[2021-07-15] MEDS: BENZTROPINE 2 MG TAB PO SCH ×2 (08:48→21:00)
[2021-07-15] MEDS: haloperidoL 5 MG TAB PO PRN (08:51)
[2021-07-15] MEDS: amLODIPine 5 MG TAB PO SCH (11:25)
[2021-07-15] MEDS: DOCUSATE SODIUM 100MG CAPSULE PO PRN (11:26)
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
[2021-07-15 18:25] VITALS: BP 132/70
[2021-07-15] MEDS: ATORVASTATIN 10 MG TAB PO SCH (21:00)
[2021-07-15] MEDS: traZODone 50 MG TAB PO SCH (21:00)
[2021-07-16] MEDS: LORazepam 2 MG TAB PO PRN (04:51)
[2021-07-16] MEDS: LEVOTHYROXINE 25MCG TABLET (0.025MG) PO SCH (06:00)
[2021-07-16 06:44] VITALS: BP 175/77
[2021-07-16] MEDS: FERROUS SULFATE 325MG TAB PO SCH (09:51)
[2021-07-16] MEDS: MELOXICAM (MOBIC) 7.5 MG TAB PO SCH (09:51)
[2021-07-16] MEDS: ASPIRIN 81MG ENTERIC TABLET PO SCH (09:51)
[2021-07-16] MEDS: SERTRALINE 100 MG TAB PO SCH (09:51)
[2021-07-16] MEDS: PREGABALIN 100 MG CAP (LYRICA) PO SCH ×2 (09:51→21:03)
[2021-07-16] MEDS: amLODIPine 5 MG TAB PO SCH (09:52)
[2021-07-16] MEDS: VITAMIN D 1,000 INTERNATIONAL UNITS TABLET PO SCH (09:52)
[2021-07-16] MEDS: BENZTROPINE 2 MG TAB PO SCH ×2 (09:52→21:03)
[2021-07-16] MEDS: VITAMIN E 400 INTERNATIONAL UNITS CAP PO SCH (09:52)
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
[2021-07-16 18:03] VITALS: BP 147/71
[2021-07-16] MEDS: haloperidoL 5 MG TAB PO PRN (18:46)
[2021-07-16] MEDS: ATORVASTATIN 10 MG TAB PO SCH (21:03)
[2021-07-16] MEDS: traZODone 50 MG TAB PO SCH (21:03)
[2021-07-16] MEDS: ACETAMINOPHEN TAB 650MG DOSE (2X325MG) PO PRN (22:34)
[2021-07-17] MEDS: LEVOTHYROXINE 25MCG TABLET (0.025MG) PO SCH (05:00)
[2021-07-17] MEDS: ACETAMINOPHEN TAB 650MG DOSE (2X325MG) PO PRN (05:01)
[2021-07-17 06:09] VITALS: BP 144/68
[2021-07-17] MEDS: VITAMIN E 400 INTERNATIONAL UNITS CAP PO SCH (09:00)
[2021-07-17] MEDS: amLODIPine 5 MG TAB PO SCH (09:00)
[2021-07-17] MEDS: PREGABALIN 100 MG CAP (LYRICA) PO SCH ×2 (09:00→20:38)
[2021-07-17] MEDS: BENZTROPINE 2 MG TAB PO SCH ×2 (09:00→20:38)
[2021-07-17] MEDS: FERROUS SULFATE 325MG TAB PO SCH (09:00)
[2021-07-17] MEDS: ASPIRIN 81MG ENTERIC TABLET PO SCH (09:00)
[2021-07-17] MEDS: MELOXICAM (MOBIC) 7.5 MG TAB PO SCH (09:00)
[2021-07-17] MEDS: VITAMIN D 1,000 INTERNATIONAL UNITS TABLET PO SCH (09:00)
[2021-07-17] MEDS: SERTRALINE 100 MG TAB PO SCH (09:00)
[2021-07-17] MEDS ORDERED: HALOPERIDOL 5MG/ML VIAL (J1630 PER 1) IM ONE (12:30)
[2021-07-17] MEDS ORDERED: diphenhydrAMINE 50MG/ML VIAL (J1200) IM ONE (12:30)
[2021-07-17] MEDS ORDERED: LORazepam 2 MG/ML VIAL IM ONE (12:30)
[2021-07-17 14:31] LABS: BILIRUBIN, URINE MANUAL NEGATIVE (NEGATIVE); GLUCOSE, URINE (UA) MANUAL NEGATIVE (NEGATIVE); KETONE, URINE MANUAL NEGATIVE (NEGATIVE); UROBILINOGEN, URINE MANUAL NORMAL (NORMAL)
[2021-07-17 14:35] LABS: SQUAMOUS EPITHELIAL CELL URINE SMALL AMOUNT /hpf (SMALL AMT)
[2021-07-17 14:36] LABS: AMORPHOUS SEDIMENT, URINE LARGE AMOUNT (NEGATIVE); BACTERIA, URINE MOD AMOUNT; HYALINE CAST, URINE NONE SEEN /lpf (0-1); MUCUS, URINE SMALL AMOUNT (NEGATIVE); OTHER CRYSTALS, URINE AMM BIURATE /hpf
[2021-07-17 14:37] LABS: TRIPLE PHOSPHATE CRYSTAL,URINE SMALL AMOUNT /hpf
[2021-07-17] MEDS: LevoFLOXacin 750 MG TABLET PO SCH (17:35)
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
[2021-07-17 17:57] VITALS: BP 175/114
[2021-07-17] MEDS: ATORVASTATIN 10 MG TAB PO SCH (20:38)
[2021-07-17] MEDS: traZODone 50 MG TAB PO SCH (20:38)
[2021-07-18] MEDS: ACETAMINOPHEN TAB 650MG DOSE (2X325MG) PO PRN ×3 (01:09→15:08)
[2021-07-18] MEDS: LEVOTHYROXINE 25MCG TABLET (0.025MG) PO SCH (06:00)
[2021-07-18] MEDS: VITAMIN D 1,000 INTERNATIONAL UNITS TABLET PO SCH (08:52)
[2021-07-18] MEDS: VITAMIN E 400 INTERNATIONAL UNITS CAP PO SCH (08:52)
[2021-07-18] MEDS: SERTRALINE 100 MG TAB PO SCH (08:52)
[2021-07-18] MEDS: ASPIRIN 81MG ENTERIC TABLET PO SCH (08:52)
[2021-07-18] MEDS: FERROUS SULFATE 325MG TAB PO SCH (08:52)
[2021-07-18] MEDS: amLODIPine 5 MG TAB PO SCH (08:53)
[2021-07-18] MEDS: BENZTROPINE 2 MG TAB PO SCH ×2 (08:53→21:57)
[2021-07-18] MEDS: MELOXICAM (MOBIC) 7.5 MG TAB PO SCH (08:53)
[2021-07-18] MEDS: PREGABALIN 100 MG CAP (LYRICA) PO SCH ×2 (08:53→21:56)
[2021-07-18 08:55] VITALS: BP 168/118
[2021-07-18 09:25] VITALS: BP 144/78
--- NOTE | 2021-07-18 13:45 | IPNPDOC ---
Text Note Date of Service The patient was seen on 07/18/21. NOTE Subjective: patient complains of frequency in urination and low back pain. Objective: GENERAL APPEARANCE: Obese female HEENT: no scleral icterus, no JVD, EOMI CARDIOVASCULAR: S1S2 LUNGS: CTA ABDOMEN: soft & not tender w palpation MUSCULOSKELETAL: no cyanosis, no swelling INTEGUMENT: no generalized pallor NEUROLOGICAL: cranial nerve function from 2-12 intact, follows commands, speech not dysarthric Assessment and plan Patient is 61 years old female with past medical history of GERD, overactive bladder, hypertension, hyperlipidemia, schizophrenia presented to hospital with suicidal ideation. Yesterday patient started complaints of low back pain with increased frequency in urination. Dysuria Levofloxacin was empirically started yesterday, day 1. Patient is normotensive, not tachycardic. Her leukocytosis most likely reactive. Her back pain in the level of iliac crest. Unlikely patient has acute pyelonephritis. Patient also has a history of overactive bladder. It is unclear if patient has increased frequency of urination given this diagnosis. Await urine culture Continue to monitor CBC, CMP GREG Most likely secondary to volume contraction Encouraged to drink plenty of fluid I stopped meloxicam Continue to monitor renal function Hypothyroidism Continue levothyroxine Hyperlipidemia Continue atorvastatin Hypertension Her blood pressure was elevated in the morning yesterday I increased amlodipine to 10 mg, lisinopril on hold due to GREG VS,Demarcuse, I+O VS, [place], I+O Vital Signs Date Time Temp Pulse Resp B/P (MAP) Pulse Ox O2 Delivery O2 Flow Rate FiO2 07/18/21 08:53 96 144/78 07/17/21 17:57 99.8 16 100 Room Air ARPITA BUCKNER DO Jul 18, 2021 13:45
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
[2021-07-18] MEDS: **NOTE PATIENT COMMENT** MISC XX SCH (21:00)
[2021-07-18] MEDS: traZODone 50 MG TAB PO SCH (21:57)
[2021-07-18] MEDS: ATORVASTATIN 10 MG TAB PO SCH (21:57)
[2021-07-18] MEDS: LIDOCAINE 5% (LIDODERM) PATCH TD SCH (21:58)
[2021-07-19] MEDS: ACETAMINOPHEN TAB 650MG DOSE (2X325MG) PO PRN (02:51)
[2021-07-19] MEDS: LEVOTHYROXINE 25MCG TABLET (0.025MG) PO SCH (06:21)
[2021-07-19 08:09] LABS: BASO % 0.1 % (0.0-1.0); HEMATOCRIT 37.6 % (36.0-47.0); HEMOGLOBIN 12.1 g/dl (12.0-15.5); LYMPH # 1.9 10^3/uL (1.5-5.0); LYMPH % 27.6 % (24.0-44.0); MEAN CORPUSCULAR HEMOGLOBIN 27.6 pg (27.0-33.0); MEAN CORPUSCULAR HGB CONC 32.2 g/dl (32.0-36.5); MEAN CORPUSCULAR VOLUME 85.8 fl (80.0-96.0); MONO # 0.6 10^3/uL (0.0-0.8); MONO % 9.1 % (2.0-8.0); NEUTROPHILS # 4.3 10^3/uL (1.5-8.5); NEUTROPHILS % 62.3 % (36.0-66.0); PLATELET COUNT, AUTOMATED 259 10^3/uL (150-450); RED BLOOD COUNT 4.38 10^6/uL (4.00-5.40)
[2021-07-19] MEDS: PREGABALIN 100 MG CAP (LYRICA) PO SCH ×2 (08:09→21:00)
[2021-07-19] MEDS: SERTRALINE 100 MG TAB PO SCH (08:09)
[2021-07-19] MEDS: VITAMIN E 400 INTERNATIONAL UNITS CAP PO SCH (08:09)
[2021-07-19] MEDS: **NOTE PATIENT COMMENT** MISC XX SCH ×2 (08:10→08:43)
[2021-07-19 08:22] LABS: BILIRUBIN,TOTAL 0.3 MG/DL (0.2-1.0); CALCIUM LEVEL 9.4 MG/DL (8.8-10.2); CREATININE FOR GFR 1.03 MG/DL (0.55-1.30); GLOMERULAR FILTRATION RATE 58.2 (>45); MAGNESIUM LEVEL 1.6 MG/DL (1.8-2.4); POTASSIUM SERUM 4.4 MEQ/L (3.5-5.1); TOTAL PROTEIN 5.9 GM/DL (6.4-8.2)
[2021-07-19 08:28] VITALS: BP 138/86
[2021-07-19] MEDS: FERROUS SULFATE 325MG TAB PO SCH (08:32)
[2021-07-19] MEDS: VITAMIN D 1,000 INTERNATIONAL UNITS TABLET PO SCH (08:32)
[2021-07-19] MEDS: ASPIRIN 81MG ENTERIC TABLET PO SCH (08:32)
[2021-07-19] MEDS: BENZTROPINE 2 MG TAB PO SCH ×2 (08:32→21:00)
[2021-07-19] MEDS: LIDOCAINE 5% (LIDODERM) PATCH TD SCH (08:32)
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
[2021-07-19] MEDS: LevoFLOXacin 750 MG TABLET PO SCH (17:52)
[2021-07-19 18:03] VITALS: BP 166/88
[2021-07-19] MEDS: ATORVASTATIN 10 MG TAB PO SCH (21:00)
[2021-07-19] MEDS: traZODone 50 MG TAB PO SCH ×2 (22:31→23:00)
[2021-07-20] MEDS: traZODone 50 MG TAB PO SCH ×3 (02:25→20:37)
[2021-07-20] MEDS: **NOTE PATIENT COMMENT** MISC XX SCH (05:00)
[2021-07-20] MEDS: LEVOTHYROXINE 25MCG TABLET (0.025MG) PO SCH (05:36)
[2021-07-20 07:11] VITALS: BP 156/74
[2021-07-20] MEDS: PREGABALIN 100 MG CAP (LYRICA) PO SCH ×2 (11:37→20:37)
[2021-07-20] MEDS: ASPIRIN 81MG ENTERIC TABLET PO SCH (11:37)
[2021-07-20] MEDS: FERROUS SULFATE 325MG TAB PO SCH (11:37)
[2021-07-20] MEDS: LIDOCAINE 5% (LIDODERM) PATCH TD SCH (11:37)
[2021-07-20] MEDS: SERTRALINE 100 MG TAB PO SCH (11:38)
[2021-07-20] MEDS: VITAMIN E 400 INTERNATIONAL UNITS CAP PO SCH (11:38)
[2021-07-20] MEDS: VITAMIN D 1,000 INTERNATIONAL UNITS TABLET PO SCH (11:39)
[2021-07-20] MEDS: BENZTROPINE 2 MG TAB PO SCH ×2 (11:40→20:38)
[2021-07-20] MEDS ORDERED: LORazepam 2 MG/ML VIAL IM STA (12:43)
[2021-07-20] MEDS ORDERED: HALOPERIDOL 5MG/ML VIAL (J1630 PER 1) IM STA (12:43)
[2021-07-20] MEDS ORDERED: diphenhydrAMINE 50MG/ML VIAL (J1200) IM STA (12:43)
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
[2021-07-20] MEDS: haloperidoL 5 MG TAB PO PRN (18:17)
[2021-07-20] MEDS: LORazepam 1 MG TAB PO PRN (18:17)
[2021-07-20 18:18] VITALS: BP 149/86
[2021-07-20] MEDS: ATORVASTATIN 10 MG TAB PO SCH (20:38)
[2021-07-20 22:00] VITALS: BP 149/86
[2021-07-21] VITALS: BP 149/86
[2021-07-21] MEDS: traMADol 50 MG TAB PO PRN (03:23)
[2021-07-21] MEDS: **NOTE PATIENT COMMENT** MISC XX SCH (05:33)
[2021-07-21] MEDS: LEVOTHYROXINE 25MCG TABLET (0.025MG) PO SCH (05:42)
[2021-07-21 06:50] VITALS: BP 160/84
[2021-07-21] MEDS: LIDOCAINE 5% (LIDODERM) PATCH TD SCH ×2 (09:00→09:50)
[2021-07-21] MEDS: FERROUS SULFATE 325MG TAB PO SCH (09:00)
[2021-07-21] MEDS: PREGABALIN 100 MG CAP (LYRICA) PO SCH ×2 (09:50→20:32)
[2021-07-21] MEDS: BENZTROPINE 2 MG TAB PO SCH ×2 (09:50→20:33)
[2021-07-21] MEDS: VITAMIN D 1,000 INTERNATIONAL UNITS TABLET PO SCH (09:50)
[2021-07-21] MEDS: SERTRALINE 100 MG TAB PO SCH (09:50)
[2021-07-21] MEDS: ASPIRIN 81MG ENTERIC TABLET PO SCH (09:51)
[2021-07-21] MEDS: VITAMIN E 400 INTERNATIONAL UNITS CAP PO SCH (09:51)
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
[2021-07-21] MEDS: LevoFLOXacin 750 MG TABLET PO SCH (17:41)
[2021-07-21] MEDS: haloperidoL 5 MG TAB PO PRN (17:41)
[2021-07-21] MEDS: LORazepam 1 MG TAB PO PRN (17:41)
[2021-07-21 18:05] VITALS: BP 150/88
[2021-07-21] MEDS: traZODone 50 MG TAB PO SCH (20:32)
[2021-07-21] MEDS: ATORVASTATIN 10 MG TAB PO SCH (20:32)
[2021-07-22] MEDS: **NOTE PATIENT COMMENT** MISC XX SCH (05:00)
[2021-07-22] MEDS: LEVOTHYROXINE 25MCG TABLET (0.025MG) PO SCH (05:06)
[2021-07-22] MEDS: traMADol 50 MG TAB PO PRN (05:07)
[2021-07-22 06:16] VITALS: BP 130/60
[2021-07-22] MEDS: LIDOCAINE 5% (LIDODERM) PATCH TD SCH (09:00)
[2021-07-22] MEDS: BENZTROPINE 2 MG TAB PO SCH ×2 (09:10→22:00)
[2021-07-22] MEDS: VITAMIN E 400 INTERNATIONAL UNITS CAP PO SCH (09:10)
[2021-07-22] MEDS: PREGABALIN 100 MG CAP (LYRICA) PO SCH ×2 (09:10→22:00)
[2021-07-22] MEDS: VITAMIN D 1,000 INTERNATIONAL UNITS TABLET PO SCH (09:10)
[2021-07-22] MEDS: ASPIRIN 81MG ENTERIC TABLET PO SCH (09:10)
[2021-07-22] MEDS: SERTRALINE 100 MG TAB PO SCH (09:10)
[2021-07-22] MEDS: FERROUS SULFATE 325MG TAB PO SCH (09:10)
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
[2021-07-22 17:00] VITALS: BP 120/78
[2021-07-22] MEDS: ATORVASTATIN 10 MG TAB PO SCH (22:00)
[2021-07-22] MEDS: traZODone 50 MG TAB PO SCH (22:00)
[2021-07-23] MEDS: **NOTE PATIENT COMMENT** MISC XX SCH (05:00)
[2021-07-23] MEDS: LEVOTHYROXINE 25MCG TABLET (0.025MG) PO SCH (06:00)
[2021-07-23] MEDS: BENZTROPINE 2 MG TAB PO SCH ×3 (09:00→21:19)
[2021-07-23] MEDS: VITAMIN D 1,000 INTERNATIONAL UNITS TABLET PO SCH (09:00)
[2021-07-23] MEDS: SERTRALINE 100 MG TAB PO SCH ×2 (09:00→10:15)
[2021-07-23] MEDS: VITAMIN E 400 INTERNATIONAL UNITS CAP PO SCH (09:00)
[2021-07-23] MEDS: FERROUS SULFATE 325MG TAB PO SCH (09:00)
[2021-07-23] MEDS: LIDOCAINE 5% (LIDODERM) PATCH TD SCH ×2 (09:00→10:14)
[2021-07-23] MEDS: ASPIRIN 81MG ENTERIC TABLET PO SCH ×2 (09:00→10:13)
[2021-07-23] MEDS: PREGABALIN 100 MG CAP (LYRICA) PO SCH ×3 (09:00→21:19)
[2021-07-23] MEDS: DOCUSATE SODIUM 100MG CAPSULE PO PRN (10:13)
[2021-07-23 11:14] LABS: ALBUMIN 3.3 GM/DL (3.2-5.2); BILIRUBIN,TOTAL 0.4 MG/DL (0.2-1.0); CALCIUM LEVEL 9.3 MG/DL (8.8-10.2); CREATININE FOR GFR 1.09 MG/DL (0.55-1.30); GLOMERULAR FILTRATION RATE 54.5 (>45); POTASSIUM SERUM 4.1 MEQ/L (3.5-5.1)
--- NOTE | 2021-07-23 12:13 | MHIPNPDOC ---
[facility] Progress Note Progress Note DATE OF SERVICE: 07/23/21 HISTORY: See H&P Interval: charts reviewed, per nursing staff has not been adequately eating or drinking, and with nursing staff present talk to the patient and encouraged to take her Ensure and water, soda. States she has voices telling her not eat or drink for 24-hours, discussed how she is not taking her nighttime medications that might make the voices worse. Patient states she will try to take her medications. No aggressive behavior noted. Just lying on the floor next to her bed. Reports that she has suicidal thoughts, but no clear intent or plan. Continues to remain disorganized. Made her way work-up where we can order some labs including a CMP. VITAL SIGNS: See below. NEW TEST RESULTS: CMP from today unremarkable apart from elevated glucose in 150s, sodium is within normal limits at 132. CURRENT MEDICATIONS: See below. MENTAL STATUS EXAMINATION: Patient is a 61-year old female, who appears her stated age, long hair, intense stare, lying on the floor next to her bed, in hospital clothing, disheveled. Speech: Is slowed, nonspontaneous Language skills are poor Thought processes including: Disorganized Thought content: Has bizarre delusions, bizarre behavior, endorses suicidal ideation, denies homicidal ideation.. Abstract reasoning, and computation: Poor. Description of associations: Poor concrete. Description of abnormal or psychotic thoughts: See above, also has auditory hallucinations which are command, nonviolent to self or others.. Judgment: Very poor. Insight: Very poor. Orientation: To place and person. Recent and remote memory: Poor. Attention span and concentration: Poor. Language: Anguillan. Fund of knowledge: Below average, based on interview. Mood: " Depressed and suicidal". Affect: Floridly psychotic, currently preoccupied with not eating for 24 hours, mood congruent DIAGNOSES: Schizophrenia bipolar type Cannabis use disorder ASSESSMENT: Patient continues to be psychotic with some improvements per chart review, pending placement, encouraged take medications and did so with redirection including her Haldol. Was given her drinks and ensure and with encouragement was made aware that she is in a safe place food is not poisoned and that she is safe to drink and eat. MANAGEMENT PLAN: Continue on current regimen no changes. Maintain on on e-to-one, with covid-19 precautions. CMP from today which was ordered due to concerns of dehydration, noted dry mouth by nursing staff in the morning. CMP was unremarkable with respects to sodium and other electrolytes apart from elevated glucose. TIME SPENT: 20 minutes. Vital Signs Vital Signs Date Time Temp Pulse Resp B/P (MAP) Pulse Ox O2 Delivery O2 Flow Rate FiO2 07/23/21 10:14 87 133/60 07/22/21 17:00 99.1 18 96 Room Air Laboratory Data 24H Labs Laboratory Tests 2 07/23/21 10:31: Anion Gap 7L, Glomerular Filtration Rate 54.5, Calcium Level 9.3, Total Bilirubin 0.4, Aspartate Amino Transf (AST/SGOT) 18, Alanine Aminotransferase (ALT/SGPT) 41, Alkaline Phosphatase 68, Total Protein 6.0L, Albumin 3.3, Albumin/Globulin Ratio 1.2 CBC/BMP Laboratory Tests 07/23/21 10:31 Current Medications Current Medications Medications (Trade) Dose Ordered Sig/Floyd Route PRN Reason Start Time Stop Time Status Last Admin Dose Admin Acetaminophen (Tylenol Tab) 650 mg Q6HP PRN PO HEADACHE or MILD DISCOMFORT 07/11/21 13:45 07/19/21 02:51 Al Hydrox/Mg Hydrox/Simethicone (Mylanta) 30 ml Q4HP PRN PO HEARTBURN/INDIGESTION 07/11/21 13:45 Amlodipine Besylate (Norvasc) 5 mg DAILY PO 07/15/21 09:00 07/18/21 13:45 DC 07/18/21 08:53 Amlodipine Besylate (Norvasc) 10 mg DAILY PO 07/19/21 09:00 07/23/21 10:14 Aspirin (Aspirin Chewable) 81 mg DAILY PO 07/11/21 09:00 07/11/21 16:20 DC 07/11/21 08:05 Aspirin (Ecotrin) 81 mg DAILY PO 07/12/21 09:00 07/23/21 10:13 Atorvastatin Calcium (Lipitor) 10 mg QHS PO 07/11/21 21:00 07/11/21 16:20 DC Atorvastatin Calcium (Lipitor) 10 mg QHS PO 07/11/21 21:00 07/21/21 20:32 Benztropine Mesylate (Cogentin) 2 mg BID PO 07/12/21 21:00 07/23/21 10:14 Diphenhydramine HCl (Benadryl) 50 mg STAT STAT IM 07/20/21 12:43 07/20/21 12:44 DC 07/20/21 12:57 Docusate Sodium (Colace) 100 mg DAILY PO 07/11/21 09:00 07/11/21 16:21 DC 07/11/21 08:05 Docusate Sodium (Colace) 100 mg DAILY PO 07/12/21 09:00 07/13/21 09:20 DC 07/12/21 09:15 Docusate Sodium (Colace) 100 mg Q12HP PRN PO CONSTIPATION 07/15/21 10:25 07/23/21 10:13 Ferrous Sulfate (Ferrous Sulfate) 325 mg DAILY PO 07/11/21 09:00 07/11/21 16:22 DC 07/11/21 08:05 Ferrous Sulfate (Ferrous Sulfate) 325 mg DAILY PO 07/12/21 09:00 07/22/21 09:10 Haloperidol (Haldol) 5 mg BID PO 07/11/21 09:00 07/11/21 16:23 DC 07/11/21 08:05 Haloperidol (Haldol) 5 mg BID PO 07/11/21 21:00 07/12/21 16:20 DC 07/12/21 09:16 Haloperidol (Haldol) 5 mg Q4HP PRN PO AGITATION 07/12/21 16:15 07/21/21 17:41 Haloperidol (Haldol) 5 mg STAT STAT IM 07/20/21 12:43 07/20/21 12:44 DC 07/20/21 12:56 Haloperidol (Haldol) 10 mg BID PO 07/12/21 21:00 07/23/21 10:13 Home Med (Home Med List Complete!) ASDIRECTED XX 07/09/21 17:45 07/09/21 17:46 DC Levofloxacin (Levaquin) 750 mg Q48H PO 07/17/21 18:00 07/23/21 18:01 07/21/21 17:41 Levothyroxine Sodium (Synthroid) 25 mcg DAILY@06 PO 07/11/21 06:00 07/11/21 16:24 DC Levothyroxine Sodium (Synthroid) 25 mcg DAILY@0600 PO 07/12/21 06:00 07/22/21 05:06 Lidocaine (Lidoderm Patch) 2 patch DAILY TD 07/18/21 17:00 07/23/21 10:14 Lisinopril (Prinivil) 5 mg DAILY PO 07/11/21 09:00 07/11/21 16:25 DC 07/11/21 08:05 Lisinopril (Prinivil) 5 mg DAILY PO 07/12/21 09:00 07/15/21 10:26 DC 07/15/21 08:47 Loperamide HCl (Imodium) 2 mg DAILY PO 07/11/21 09:00 07/13/21 09:20 DC 07/12/21 09:16 Lorazepam (Ativan) 0.25 mg BID PRN PO anxiety 07/11/21 15:10 Cancel Lorazepam (Ativan) 0.5 mg STAT STAT PO 07/11/21 09:53 07/11/21 09:54 DC 07/11/21 09:58 Lorazepam (Ativan) 1 mg Q6HP PRN PO ANXIETY 07/18/21 12:00 07/21/21 17:41 Lorazepam (Ativan) 2 mg Q4HP PRN PO ANXIETY/AGITATION 07/12/21 16:15 07/18/21 11:59 DC 07/16/21 04:51 Lorazepam (Ativan) 2 mg STAT STAT IM 07/20/21 12:43 07/20/21 12:44 DC 07/20/21 12:56 Magnesium Hydroxide (Milk Of Magnesia) 30 ml DAILYPRN PRN PO CONSTIPATION 07/11/21 13:45 Meloxicam (Mobic) 15 mg DAILY PO 07/11/21 09:00 07/11/21 16:29 DC 07/11/21 08:06 Meloxicam (Mobic) 15 mg DAILY PO 07/12/21 09:00 07/18/21 13:38 DC 07/18/21 08:53 Miscellaneous (Unresolved Clarification Entry) SEE LABEL COMMENTS DAILY XX 07/17/21 09:00 07/18/21 11:17 DC Miscellaneous (Unresolved Clarification Entry) SEE LABEL COMMENTS DAILY XX 07/21/21 09:00 Nicotine (Nicoderm Cq 21mg) 1 patch DAILYPRN PRN TD NICOTINE WITHDRAWAL 07/11/21 13:45 Non-Formulary Medication ( See Comment Field Below ) REMOVE LIDODERM PATCH DAILY@0500 XX 07/19/21 05:00 07/21/21 05:33 Non-Formulary Medication ( See Comment Field Below ) REMOVE LIDODERM PATCH DAILY@21 XX 07/18/21 21:00 07/19/21 08:35 DC Pregabalin (Lyrica) 100 mg BID PO 07/11/21 09:00 07/11/21 16:30 DC 07/11/21 08:05 Pregabalin (Lyrica) 100 mg BID PO 07/11/21 21:00 07/23/21 10:13 Psyllium Hydrophilic Mucilloid (Metamucil) 1 pkt DAILY PO 07/11/21 09:00 07/11/21 16:31 DC 07/11/21 09:01 Psyllium Hydrophilic Mucilloid (Metamucil) 1 pkt DAILY PO 07/12/21 09:00 07/13/21 09:20 DC Sertraline HCl (Zoloft) 200 mg DAILY PO 07/11/21 09:00 07/11/21 16:34 DC 07/11/21 08:06 Sertraline HCl (Zoloft) 200 mg DAILY PO 07/12/21 09:00 07/23/21 10:15 Tramadol HCl (Ultram) 50 mg Q6HP PRN PO MODERATE PAIN (PS 5-7) 07/18/21 16:25 07/22/21 05:07 Trazodone HCl (Desyrel) 50 mg QHS PO 07/11/21 21:00 07/11/21 13:57 DC Trazodone HCl (Desyrel) 50 mg QHS PO 07/11/21 21:00 07/21/21 20:32 Trazodone HCl (Desyrel) 50 mg QHSP PRN PO INSOMNIA 07/11/21 13:45 07/11/21 16:35 DC Trihexyphenidyl HCl (Artane) 2 mg QHS PO 07/11/21 21:00 07/11/21 16:32 DC Trihexyphenidyl HCl (Artane) 2 mg QHS PO 07/11/21 21:00 07/12/21 16:27 DC 07/12/21 01:06 Vitamin D (Vitamin D) 2,000 units DAILY PO 07/11/21 09:00 07/11/21 16:35 DC 07/11/21 08:05 Vitamin D (Vitamin D) 2,000 units DAILY PO 07/12/21 09:00 07/22/21 09:10 Vitamin E (Vitamin E) 400 units DAILY PO 07/11/21 09:00 07/11/21 16:35 DC 07/11/21 09:01 Vitamin E (Vitamin E) 400 units DAILY PO 07/12/21 09:00 07/22/21 09:10 Allergies Coded Allergies: Penicillins (Verified Allergy, Unknown, rash/hives, 05/21/20) Sulfa (Sulfonamide Antibiotics) (Verified Allergy, Unknown, n/v, 05/21/20) "I get deathly ill, I feel like I'm dying." fluoxetine (Verified Allergy, Unknown, SI, 05/21/20) thioridazine (Verified Allergy, Unknown, 05/21/20) valproic acid (Verified Allergy, Unknown, SEDATION, 05/21/20) REECE HUYNH MD Jul 23, 2021 12:13
[2021-07-23] MEDS: LevoFLOXacin 750 MG TABLET PO SCH (17:43)
[2021-07-23] MEDS: traZODone 50 MG TAB PO SCH (21:19)
[2021-07-23] MEDS: ATORVASTATIN 10 MG TAB PO SCH (21:19)
[2021-07-23] MEDS: traMADol 50 MG TAB PO PRN (21:22)
[2021-07-24] MEDS: **NOTE PATIENT COMMENT** MISC XX SCH (05:25)
[2021-07-24] MEDS: LEVOTHYROXINE 25MCG TABLET (0.025MG) PO SCH (05:25)
[2021-07-24 07:12] VITALS: BP 163/80
[2021-07-24] MEDS: LIDOCAINE 5% (LIDODERM) PATCH TD SCH (09:00)
[2021-07-24] MEDS: BENZTROPINE 2 MG TAB PO SCH ×2 (09:58→21:53)
[2021-07-24] MEDS: FERROUS SULFATE 325MG TAB PO SCH (09:58)
[2021-07-24] MEDS: VITAMIN D 1,000 INTERNATIONAL UNITS TABLET PO SCH (09:58)
[2021-07-24] MEDS: SERTRALINE 100 MG TAB PO SCH (09:59)
[2021-07-24] MEDS: VITAMIN E 400 INTERNATIONAL UNITS CAP PO SCH (09:59)
[2021-07-24] MEDS: PREGABALIN 100 MG CAP (LYRICA) PO SCH ×2 (10:00→21:53)
[2021-07-24] MEDS: LORazepam 1 MG TAB PO PRN ×2 (10:00→18:30)
[2021-07-24] MEDS: ASPIRIN 81MG ENTERIC TABLET PO SCH (10:00)
[2021-07-24] MEDS: traMADol 50 MG TAB PO PRN (12:59)
--- NOTE | 2021-07-24 16:25 | MHIPNPDOC ---
[facility] Progress Note Progress Note DATE OF SERVICE: 07/24/21 HISTORY: Patient is a 61 -year-old Single, Disabled, Domiciled, , female, who initially came to the ED with medical complaints of back and leg pain. When she was interviewed by EMS and the ER MD she made suicidal statements that she was planning to jump from a bridge or cut wrist. VITAL SIGNS: See below. NEW TEST RESULTS: see lab results CURRENT MEDICATIONS: See below. MENTAL STATUS EXAMINATION: CURRENT MEDICATIONS: See below. MENTAL STATUS EXAMINATION: Patient is a 61-year old female, who appears her stated age, long hair, intense stare, sitting upright on her bed, in hospital clothing, well-kempt, showered today Speech: Is slowed, nonspontaneous Language skills are poor Thought processes including: more linear today Thought content: reports depression and anxiety endorses suicidal ideation, denies planning or intent, denies homicidal ideation. Abstract reasoning, and computation: Poor. Description of associations: Poor concrete. Description of abnormal or psychotic thoughts: See above, also has auditory hallucinations which are command, nonviolent to self or others.. Judgment: improving Insight: improving Orientation: To place and person. Recent and remote memory: improving Attention span and concentration: improving Language: Mongolian. Fund of knowledge: Below average, based on interview. Mood: " Depressed and suicidal". Affect: Floridly psychotic, currently preoccupied with not eating for 24 hours, mood congruent DIAGNOSES: Schizophrenia bipolar type Cannabis use disorder ASSESSMENT: Patient found sitting up. She has improved dialogue with provider. answers readily although she reports that she is depressed and anxious with continued suicidal thinking. She denies that she has any intent or planning. States that she feels much of this is because she has been quarantined to the room due to COVID precautions. States that she does not want to return to [facility] in [place] but she states that she is in need of the services that they provide. Patient is more compliant with medications, nutrition, hydration and ADLs. MANAGEMENT PLAN: Continue medications. Discharge when stable. Discontinue T.O.O. as patient is compliant with meds TIME SPENT: 20 minutes. Vital Signs Vital Signs Date Time Temp Pulse Resp B/P (MAP) Pulse Ox O2 Delivery O2 Flow Rate FiO2 07/24/21 13:50 78 16 07/24/21 09:58 163/80 07/24/21 07:12 99.0 92 Room Air Current Medications Current Medications Medications (Trade) Dose Ordered Sig/Floyd Route PRN Reason Start Time Stop Time Status Last Admin Dose Admin Acetaminophen (Tylenol Tab) 650 mg Q6HP PRN PO HEADACHE or MILD DISCOMFORT 07/11/21 13:45 07/19/21 02:51 Al Hydrox/Mg Hydrox/Simethicone (Mylanta) 30 ml Q4HP PRN PO HEARTBURN/INDIGESTION 07/11/21 13:45 Amlodipine Besylate (Norvasc) 5 mg DAILY PO 07/15/21 09:00 07/18/21 13:45 DC 07/18/21 08:53 Amlodipine Besylate (Norvasc) 10 mg DAILY PO 07/19/21 09:00 07/24/21 09:58 Aspirin (Aspirin Chewable) 81 mg DAILY PO 07/11/21 09:00 07/11/21 16:20 DC 07/11/21 08:05 Aspirin (Ecotrin) 81 mg DAILY PO 07/12/21 09:00 07/24/21 10:00 Atorvastatin Calcium (Lipitor) 10 mg QHS PO 07/11/21 21:00 07/11/21 16:20 DC Atorvastatin Calcium (Lipitor) 10 mg QHS PO 07/11/21 21:00 07/23/21 21:19 Benztropine Mesylate (Cogentin) 2 mg BID PO 07/12/21 21:00 07/24/21 09:58 Diphenhydramine HCl (Benadryl) 50 mg STAT STAT IM 07/20/21 12:43 07/20/21 12:44 DC 07/20/21 12:57 Docusate Sodium (Colace) 100 mg DAILY PO 07/11/21 09:00 07/11/21 16:21 DC 07/11/21 08:05 Docusate Sodium (Colace) 100 mg DAILY PO 07/12/21 09:00 07/13/21 09:20 DC 07/12/21 09:15 Docusate Sodium (Colace) 100 mg Q12HP PRN PO CONSTIPATION 07/15/21 10:25 07/23/21 10:13 Ferrous Sulfate (Ferrous Sulfate) 325 mg DAILY PO 07/11/21 09:00 07/11/21 16:22 DC 07/11/21 08:05 Ferrous Sulfate (Ferrous Sulfate) 325 mg DAILY PO 07/12/21 09:00 07/24/21 09:58 Haloperidol (Haldol) 5 mg BID PO 07/11/21 09:00 07/11/21 16:23 DC 07/11/21 08:05 Haloperidol (Haldol) 5 mg BID PO 07/11/21 21:00 07/12/21 16:20 DC 07/12/21 09:16 Haloperidol (Haldol) 5 mg Q4HP PRN PO AGITATION 07/12/21 16:15 07/21/21 17:41 Haloperidol (Haldol) 5 mg STAT STAT IM 07/20/21 12:43 07/20/21 12:44 DC 07/20/21 12:56 Haloperidol (Haldol) 10 mg BID PO 07/12/21 21:00 07/24/21 09:58 Home Med (Home Med List Complete!) ASDIRECTED XX 07/09/21 17:45 07/09/21 17:46 DC Levofloxacin (Levaquin) 750 mg Q48H PO 07/17/21 18:00 07/23/21 18:01 DC 07/21/21 17:41 Levothyroxine Sodium (Synthroid) 25 mcg DAILY@06 PO 07/11/21 06:00 07/11/21 16:24 DC Levothyroxine Sodium (Synthroid) 25 mcg DAILY@0600 PO 07/12/21 06:00 07/24/21 05:25 Lidocaine (Lidoderm Patch) 2 patch DAILY TD 07/18/21 17:00 07/23/21 10:14 Lisinopril (Prinivil) 5 mg DAILY PO 07/11/21 09:00 07/11/21 16:25 DC 07/11/21 08:05 Lisinopril (Prinivil) 5 mg DAILY PO 07/12/21 09:00 07/15/21 10:26 DC 07/15/21 08:47 Loperamide HCl (Imodium) 2 mg DAILY PO 07/11/21 09:00 07/13/21 09:20 DC 07/12/21 09:16 Lorazepam (Ativan) 0.25 mg BID PRN PO anxiety 07/11/21 15:10 Cancel Lorazepam (Ativan) 0.5 mg STAT STAT PO 07/11/21 09:53 07/11/21 09:54 DC 07/11/21 09:58 Lorazepam (Ativan) 1 mg Q6HP PRN PO ANXIETY 07/18/21 12:00 07/24/21 10:00 Lorazepam (Ativan) 2 mg Q4HP PRN PO ANXIETY/AGITATION 07/12/21 16:15 07/18/21 11:59 DC 07/16/21 04:51 Lorazepam (Ativan) 2 mg STAT STAT IM 07/20/21 12:43 07/20/21 12:44 DC 07/20/21 12:56 Magnesium Hydroxide (Milk Of Magnesia) 30 ml DAILYPRN PRN PO CONSTIPATION 07/11/21 13:45 Meloxicam (Mobic) 15 mg DAILY PO 07/11/21 09:00 07/11/21 16:29 DC 07/11/21 08:06 Meloxicam (Mobic) 15 mg DAILY PO 07/12/21 09:00 07/18/21 13:38 DC 07/18/21 08:53 Miscellaneous (Unresolved Clarification Entry) SEE LABEL COMMENTS DAILY XX 07/17/21 09:00 07/18/21 11:17 DC Miscellaneous (Unresolved Clarification Entry) SEE LABEL COMMENTS DAILY XX 07/21/21 09:00 07/24/21 11:18 DC Miscellaneous (Unresolved Clarification Entry) SEE LABEL COMMENTS DAILY XX 07/24/21 09:00 Nicotine (Nicoderm Cq 21mg) 1 patch DAILYPRN PRN TD NICOTINE WITHDRAWAL 07/11/21 13:45 Non-Formulary Medication ( See Comment Field Below ) REMOVE LIDODERM PATCH DAILY@0500 XX 07/19/21 05:00 07/24/21 05:25 Non-Formulary Medication ( See Comment Field Below ) REMOVE LIDODERM PATCH DAILY@21 XX 07/18/21 21:00 07/19/21 08:35 DC Pregabalin (Lyrica) 100 mg BID PO 07/11/21 09:00 07/11/21 16:30 DC 07/11/21 08:05 Pregabalin (Lyrica) 100 mg BID PO 07/11/21 21:00 07/24/21 10:00 Psyllium Hydrophilic Mucilloid (Metamucil) 1 pkt DAILY PO 07/11/21 09:00 07/11/21 16:31 DC 07/11/21 09:01 Psyllium Hydrophilic Mucilloid (Metamucil) 1 pkt DAILY PO 07/12/21 09:00 07/13/21 09:20 DC Sertraline HCl (Zoloft) 200 mg DAILY PO 07/11/21 09:00 07/11/21 16:34 DC 07/11/21 08:06 Sertraline HCl (Zoloft) 200 mg DAILY PO 07/12/21 09:00 07/24/21 09:59 Tramadol HCl (Ultram) 50 mg Q6HP PRN PO MODERATE PAIN (PS 5-7) 07/18/21 16:25 07/24/21 12:59 Trazodone HCl (Desyrel) 50 mg QHS PO 07/11/21 21:00 07/11/21 13:57 DC Trazodone HCl (Desyrel) 50 mg QHS PO 07/11/21 21:00 07/23/21 21:19 Trazodone HCl (Desyrel) 50 mg QHSP PRN PO INSOMNIA 07/11/21 13:45 07/11/21 16:35 DC Trihexyphenidyl HCl (Artane) 2 mg QHS PO 07/11/21 21:00 07/11/21 16:32 DC Trihexyphenidyl HCl (Artane) 2 mg QHS PO 07/11/21 21:00 07/12/21 16:27 DC 07/12/21 01:06 Vitamin D (Vitamin D) 2,000 units DAILY PO 07/11/21 09:00 07/11/21 16:35 DC 07/11/21 08:05 Vitamin D (Vitamin D) 2,000 units DAILY PO 07/12/21 09:00 07/24/21 09:58 Vitamin E (Vitamin E) 400 units DAILY PO 07/11/21 09:00 07/11/21 16:35 DC 07/11/21 09:01 Vitamin E (Vitamin E) 400 units DAILY PO 07/12/21 09:00 07/24/21 09:59 Allergies Coded Allergies: Penicillins (Verified Allergy, Unknown, rash/hives, 05/21/20) Sulfa (Sulfonamide Antibiotics) (Verified Allergy, Unknown, n/v, 05/21/20) "I get deathly ill, I feel like I'm dying." fluoxetine (Verified Allergy, Unknown, SI, 05/21/20) thioridazine (Verified Allergy, Unknown, 05/21/20) valproic acid (Verified Allergy, Unknown, SEDATION, 05/21/20) [id number] LOONEY NP Jul 24, 2021 16:02
[2021-07-24 17:47] VITALS: BP 136/80
[2021-07-24] MEDS: ATORVASTATIN 10 MG TAB PO SCH (21:52)
[2021-07-24] MEDS: traZODone 50 MG TAB PO SCH (21:52)
[2021-07-25] MEDS: traMADol 50 MG TAB PO PRN ×2 (05:25→17:42)
[2021-07-25] MEDS: LEVOTHYROXINE 25MCG TABLET (0.025MG) PO SCH (05:26)
[2021-07-25] MEDS: **NOTE PATIENT COMMENT** MISC XX SCH (05:30)
[2021-07-25 06:00] VITALS: BP 124/60
[2021-07-25] MEDS: LIDOCAINE 5% (LIDODERM) PATCH TD SCH (09:55)
[2021-07-25] MEDS: LORazepam 1 MG TAB PO PRN ×2 (09:55→17:41)
[2021-07-25] MEDS: SERTRALINE 100 MG TAB PO SCH (09:56)
[2021-07-25] MEDS: FERROUS SULFATE 325MG TAB PO SCH (09:57)
[2021-07-25] MEDS: BENZTROPINE 2 MG TAB PO SCH ×2 (09:57→20:15)
[2021-07-25] MEDS: VITAMIN D 1,000 INTERNATIONAL UNITS TABLET PO SCH (09:57)
[2021-07-25] MEDS: PREGABALIN 100 MG CAP (LYRICA) PO SCH ×2 (09:57→20:15)
[2021-07-25] MEDS: VITAMIN E 400 INTERNATIONAL UNITS CAP PO SCH (09:57)
[2021-07-25] MEDS: ASPIRIN 81MG ENTERIC TABLET PO SCH (09:58)
--- NOTE | 2021-07-25 15:46 | MHIPNPDOC ---
[facility] Progress Note Progress Note DATE OF SERVICE: 07/25/21 HISTORY: Patient is a 61 -year-old Single, Disabled, Domiciled, , female, who initially came to the ED with medical complaints of back and leg pain. When she was interviewed by EMS and the ER MD she made suicidal statements that she was planning to jump from a bridge or cut wrist. VITAL SIGNS: See below. NEW TEST RESULTS: see lab results CURRENT MEDICATIONS: See below. MENTAL STATUS EXAMINATION: CURRENT MEDICATIONS: See below. MENTAL STATUS EXAMINATION: Patient is a 61-year old female, who appears her stated age, long hair, intense stare, sitting upright on her bed, in hospital clothing, well-kempt, hygiene and grooming is good Speech: Is slowed, but mildly more conversant Language skills are poor Thought processes including: improved coherency Thought content: reports depression and anxiety endorses suicidal ideation, denies planning or intent, denies homicidal ideation. Abstract reasoning, and computation: Poor. Description of associations: Poor concrete. Description of abnormal or psychotic thoughts: See above, also has auditory hallucinations which are command, nonviolent to self or others.. Judgment: improving Insight: improving Orientation: To place and person. Recent and remote memory: improving Attention span and concentration: improving Language: Chinese. Fund of knowledge: Below average, based on interview. Mood: " Depressed and suicidal". Affect: flat, at times mildly psychotic but overall improving DIAGNOSES: Schizophrenia bipolar type Cannabis use disorder ASSESSMENT: Patient is observed walking in the hallway. Appears to be slowly improving. Patient was quarantined due to COVID exposure with very little interaction with staff, but 1:[address] She reports auditory hallucinations, continued depression and anxiety, reporting that her suicidal thoughts are fleeting today. Remains mildly psychotic today but overall she seems to be improving. Her nutrition and hydration intake has improved. MANAGEMENT PLAN: Continue medications. Discharge when stable. Discontinue T.O.O. as patient is compliant with meds. TIME SPENT: 20 minutes. Vital Signs Vital Signs Date Time Temp Pulse Resp B/P (MAP) Pulse Ox O2 Delivery O2 Flow Rate FiO2 07/25/21 09:56 82 124/60 07/25/21 06:49 18 07/25/21 06:00 99.2 97 07/24/21 07:12 Room Air Current Medications Current Medications Medications (Trade) Dose Ordered Sig/Floyd Route PRN Reason Start Time Stop Time Status Last Admin Dose Admin Acetaminophen (Tylenol Tab) 650 mg Q6HP PRN PO HEADACHE or MILD DISCOMFORT 07/11/21 13:45 07/19/21 02:51 Al Hydrox/Mg Hydrox/Simethicone (Mylanta) 30 ml Q4HP PRN PO HEARTBURN/INDIGESTION 07/11/21 13:45 Amlodipine Besylate (Norvasc) 5 mg DAILY PO 07/15/21 09:00 07/18/21 13:45 DC 07/18/21 08:53 Amlodipine Besylate (Norvasc) 10 mg DAILY PO 07/19/21 09:00 07/25/21 09:56 Aspirin (Aspirin Chewable) 81 mg DAILY PO 07/11/21 09:00 07/11/21 16:20 DC 07/11/21 08:05 Aspirin (Ecotrin) 81 mg DAILY PO 07/12/21 09:00 07/25/21 09:58 Atorvastatin Calcium (Lipitor) 10 mg QHS PO 07/11/21 21:00 07/11/21 16:20 DC Atorvastatin Calcium (Lipitor) 10 mg QHS PO 07/11/21 21:00 07/24/21 21:52 Benztropine Mesylate (Cogentin) 2 mg BID PO 07/12/21 21:00 07/25/21 09:57 Diphenhydramine HCl (Benadryl) 50 mg STAT STAT IM 07/20/21 12:43 07/20/21 12:44 DC 07/20/21 12:57 Docusate Sodium (Colace) 100 mg DAILY PO 07/11/21 09:00 07/11/21 16:21 DC 07/11/21 08:05 Docusate Sodium (Colace) 100 mg DAILY PO 07/12/21 09:00 07/13/21 09:20 DC 07/12/21 09:15 Docusate Sodium (Colace) 100 mg Q12HP PRN PO CONSTIPATION 07/15/21 10:25 07/23/21 10:13 Ferrous Sulfate (Ferrous Sulfate) 325 mg DAILY PO 07/11/21 09:00 07/11/21 16:22 DC 07/11/21 08:05 Ferrous Sulfate (Ferrous Sulfate) 325 mg DAILY PO 07/12/21 09:00 07/25/21 09:57 Haloperidol (Haldol) 5 mg BID PO 07/11/21 09:00 07/11/21 16:23 DC 07/11/21 08:05 Haloperidol (Haldol) 5 mg BID PO 07/11/21 21:00 07/12/21 16:20 DC 07/12/21 09:16 Haloperidol (Haldol) 5 mg Q4HP PRN PO AGITATION 07/12/21 16:15 07/21/21 17:41 Haloperidol (Haldol) 5 mg STAT STAT IM 07/20/21 12:43 07/20/21 12:44 DC 07/20/21 12:56 Haloperidol (Haldol) 10 mg BID PO 07/12/21 21:00 07/25/21 09:57 Home Med (Home Med List Complete!) ASDIRECTED XX 07/09/21 17:45 07/09/21 17:46 DC Levofloxacin (Levaquin) 750 mg Q48H PO 07/17/21 18:00 07/23/21 18:01 DC 07/21/21 17:41 Levothyroxine Sodium (Synthroid) 25 mcg DAILY@06 PO 07/11/21 06:00 07/11/21 16:24 DC Levothyroxine Sodium (Synthroid) 25 mcg DAILY@0600 PO 07/12/21 06:00 07/24/21 05:25 Lidocaine (Lidoderm Patch) 2 patch DAILY TD 07/18/21 17:00 07/25/21 09:55 Lisinopril (Prinivil) 5 mg DAILY PO 07/11/21 09:00 07/11/21 16:25 DC 07/11/21 08:05 Lisinopril (Prinivil) 5 mg DAILY PO 07/12/21 09:00 07/15/21 10:26 DC 07/15/21 08:47 Loperamide HCl (Imodium) 2 mg DAILY PO 07/11/21 09:00 07/13/21 09:20 DC 07/12/21 09:16 Lorazepam (Ativan) 0.25 mg BID PRN PO anxiety 07/11/21 15:10 Cancel Lorazepam (Ativan) 0.5 mg STAT STAT PO 07/11/21 09:53 07/11/21 09:54 DC 07/11/21 09:58 Lorazepam (Ativan) 1 mg Q6HP PRN PO ANXIETY 07/18/21 12:00 07/25/21 09:55 Lorazepam (Ativan) 2 mg Q4HP PRN PO ANXIETY/AGITATION 07/12/21 16:15 07/18/21 11:59 DC 07/16/21 04:51 Lorazepam (Ativan) 2 mg STAT STAT IM 07/20/21 12:43 07/20/21 12:44 DC 07/20/21 12:56 Magnesium Hydroxide (Milk Of Magnesia) 30 ml DAILYPRN PRN PO CONSTIPATION 07/11/21 13:45 Meloxicam (Mobic) 15 mg DAILY PO 07/11/21 09:00 07/11/21 16:29 DC 07/11/21 08:06 Meloxicam (Mobic) 15 mg DAILY PO 07/12/21 09:00 07/18/21 13:38 DC 07/18/21 08:53 Miscellaneous (Unresolved Clarification Entry) SEE LABEL COMMENTS DAILY XX 07/17/21 09:00 07/18/21 11:17 DC Miscellaneous (Unresolved Clarification Entry) SEE LABEL COMMENTS DAILY XX 07/21/21 09:00 07/24/21 11:18 DC Miscellaneous (Unresolved Clarification Entry) SEE LABEL COMMENTS DAILY XX 07/24/21 09:00 07/25/21 08:22 DC Miscellaneous (Unresolved Clarification Entry) SEE LABEL COMMENTS DAILY XX 07/25/21 09:00 07/25/21 10:26 DC Nicotine (Nicoderm Cq 21mg) 1 patch DAILYPRN PRN TD NICOTINE WITHDRAWAL 07/11/21 13:45 Non-Formulary Medication ( See Comment Field Below ) REMOVE LIDODERM PATCH DAILY@0500 XX 07/19/21 05:00 07/25/21 05:30 Non-Formulary Medication ( See Comment Field Below ) REMOVE LIDODERM PATCH DAILY@21 XX 07/18/21 21:00 07/19/21 08:35 DC Pregabalin (Lyrica) 100 mg BID PO 07/11/21 09:00 07/11/21 16:30 DC 07/11/21 08:05 Pregabalin (Lyrica) 100 mg BID PO 07/11/21 21:00 07/25/21 09:57 Psyllium Hydrophilic Mucilloid (Metamucil) 1 pkt DAILY PO 07/11/21 09:00 07/11/21 16:31 DC 07/11/21 09:01 Psyllium Hydrophilic Mucilloid (Metamucil) 1 pkt DAILY PO 07/12/21 09:00 07/13/21 09:20 DC Sertraline HCl (Zoloft) 200 mg DAILY PO 07/11/21 09:00 07/11/21 16:34 DC 07/11/21 08:06 Sertraline HCl (Zoloft) 200 mg DAILY PO 07/12/21 09:00 07/25/21 09:56 Tramadol HCl (Ultram) 50 mg Q6HP PRN PO MODERATE PAIN (PS 5-7) 07/18/21 16:25 07/25/21 05:25 Trazodone HCl (Desyrel) 50 mg QHS PO 07/11/21 21:00 07/11/21 13:57 DC Trazodone HCl (Desyrel) 50 mg QHS PO 07/11/21 21:00 07/24/21 21:52 Trazodone HCl (Desyrel) 50 mg QHSP PRN PO INSOMNIA 07/11/21 13:45 07/11/21 16:35 DC Trihexyphenidyl HCl (Artane) 2 mg QHS PO 07/11/21 21:00 07/11/21 16:32 DC Trihexyphenidyl HCl (Artane) 2 mg QHS PO 07/11/21 21:00 07/12/21 16:27 DC 07/12/21 01:06 Vitamin D (Vitamin D) 2,000 units DAILY PO 07/11/21 09:00 07/11/21 16:35 DC 07/11/21 08:05 Vitamin D (Vitamin D) 2,000 units DAILY PO 07/12/21 09:00 07/25/21 09:57 Vitamin E (Vitamin E) 400 units DAILY PO 07/11/21 09:00 07/11/21 16:35 DC 07/11/21 09:01 Vitamin E (Vitamin E) 400 units DAILY PO 07/12/21 09:00 07/25/21 09:57 Allergies Coded Allergies: Penicillins (Verified Allergy, Unknown, rash/hives, 05/21/20) Sulfa (Sulfonamide Antibiotics) (Verified Allergy, Unknown, n/v, 05/21/20) "I get deathly ill, I feel like I'm dying." fluoxetine (Verified Allergy, Unknown, SI, 05/21/20) thioridazine (Verified Allergy, Unknown, 05/21/20) valproic acid (Verified Allergy, Unknown, SEDATION, 05/21/20) RAJEEV LOONEY [employer] Jul 25, 2021 11:36
[2021-07-25 17:20] VITALS: BP 143/82
[2021-07-25] MEDS: traZODone 50 MG TAB PO SCH (20:15)
[2021-07-25] MEDS: ATORVASTATIN 10 MG TAB PO SCH (20:15)
[2021-07-26] MEDS: LORazepam 1 MG TAB PO PRN (04:05)
[2021-07-26] MEDS: traMADol 50 MG TAB PO PRN ×2 (04:06→18:28)
[2021-07-26] MEDS: **NOTE PATIENT COMMENT** MISC XX SCH (06:08)
[2021-07-26] MEDS: LEVOTHYROXINE 25MCG TABLET (0.025MG) PO SCH (06:08)
[2021-07-26 06:17] VITALS: BP 119/61
[2021-07-26] MEDS: PREGABALIN 100 MG CAP (LYRICA) PO SCH ×2 (09:01→20:26)
[2021-07-26] MEDS: LIDOCAINE 5% (LIDODERM) PATCH TD SCH (09:01)
[2021-07-26] MEDS: VITAMIN D 1,000 INTERNATIONAL UNITS TABLET PO SCH (09:01)
[2021-07-26] MEDS: SERTRALINE 100 MG TAB PO SCH (09:01)
[2021-07-26] MEDS: FERROUS SULFATE 325MG TAB PO SCH (09:02)
[2021-07-26] MEDS: VITAMIN E 400 INTERNATIONAL UNITS CAP PO SCH (09:02)
[2021-07-26] MEDS: ASPIRIN 81MG ENTERIC TABLET PO SCH (09:02)
[2021-07-26] MEDS: BENZTROPINE 2 MG TAB PO SCH ×2 (09:02→20:25)
--- NOTE | 2021-07-26 15:53 | MHIPNPDOC ---
[facility] Progress Note Progress Note DATE OF SERVICE: 07/26/21 HISTORY: Patient is a 61 -year-old Single, Disabled, Domiciled, , female, who initially came to the ED with medical complaints of back and leg pain. When she was interviewed by EMS and the ER MD she made suicidal statements that she was planning to jump from a bridge or cut wrist. VITAL SIGNS: See below. NEW TEST RESULTS: see lab results CURRENT MEDICATIONS: See below. MENTAL STATUS EXAMINATION: CURRENT MEDICATIONS: See below. MENTAL STATUS EXAMINATION: Patient is a 61-year old female, who appears her stated age, long hair, intense stare, sitting upright on her bed, in hospital clothing, well-kempt, hygiene and grooming is good Speech: Is slowed, but mildly more conversant Language skills are poor Thought processes including: improved coherency Thought content: reports depression and anxiety endorses suicidal ideation, denies planning or intent, denies homicidal ideation. Abstract reasoning, and computation: Poor. Description of associations: Poor concrete. Description of abnormal or psychotic thoughts: See above, also has auditory hallucinations which are command, nonviolent to self or others.. Judgment: improving Insight: improving Orientation: To place and person. Recent and remote memory: fair Attention span and concentration: poor Language: Bulgarian. Fund of knowledge: Below average, based on interview. Mood: " Depressed" Remains dysphoric/apathetic Affect: flat DIAGNOSES: Schizophrenia bipolar type Cannabis use disorder ASSESSMENT: Patient is found sleeping in her bed. Remains quite dysphoric and psychotic. She stated that she was going to refuse medications. Encouraged to take medications as she had been improving the last few days. Patient reports pain in hips. Continues to report depression, decreased anxiety but denies thoughts of wanting to hurt herself. She denies intent or planning. She has significant retardation in motor skills, appears dysphoric and apathetic, minimal responses that are delayed. Has Improved insight and judgment but attention span and concentration seems to be declined today. Patient is on 1:1 due to COVID precaution/quarantine and ligature risk. She states that she wants to be discharged but patient is not stable nor could take care of herself independently. MANAGEMENT PLAN: Continue medications. Discharge when stable. Discontinue T.O.O. as patient is compliant with meds. TIME SPENT: 20 minutes. Vital Signs Vital Signs Date Time Temp Pulse Resp B/P (MAP) Pulse Ox O2 Delivery O2 Flow Rate FiO2 07/26/21 09:02 80 138/70 07/26/21 06:17 98.6 18 98 Room Air Current Medications Current Medications Medications (Trade) Dose Ordered Sig/Floyd Route PRN Reason Start Time Stop Time Status Last Admin Dose Admin Acetaminophen (Tylenol Tab) 650 mg Q6HP PRN PO HEADACHE or MILD DISCOMFORT 07/11/21 13:45 07/19/21 02:51 Al Hydrox/Mg Hydrox/Simethicone (Mylanta) 30 ml Q4HP PRN PO HEARTBURN/INDIGESTION 07/11/21 13:45 Amlodipine Besylate (Norvasc) 5 mg DAILY PO 07/15/21 09:00 07/18/21 13:45 DC 07/18/21 08:53 Amlodipine Besylate (Norvasc) 10 mg DAILY PO 07/19/21 09:00 07/26/21 09:02 Aspirin (Aspirin Chewable) 81 mg DAILY PO 07/11/21 09:00 07/11/21 16:20 DC 07/11/21 08:05 Aspirin (Ecotrin) 81 mg DAILY PO 07/12/21 09:00 07/26/21 09:02 Atorvastatin Calcium (Lipitor) 10 mg QHS PO 07/11/21 21:00 07/11/21 16:20 DC Atorvastatin Calcium (Lipitor) 10 mg QHS PO 07/11/21 21:00 07/25/21 20:15 Benztropine Mesylate (Cogentin) 2 mg BID PO 07/12/21 21:00 07/26/21 09:02 Diphenhydramine HCl (Benadryl) 50 mg STAT STAT IM 07/20/21 12:43 07/20/21 12:44 DC 07/20/21 12:57 Docusate Sodium (Colace) 100 mg DAILY PO 07/11/21 09:00 07/11/21 16:21 DC 07/11/21 08:05 Docusate Sodium (Colace) 100 mg DAILY PO 07/12/21 09:00 07/13/21 09:20 DC 07/12/21 09:15 Docusate Sodium (Colace) 100 mg Q12HP PRN PO CONSTIPATION 07/15/21 10:25 07/23/21 10:13 Ferrous Sulfate (Ferrous Sulfate) 325 mg DAILY PO 07/11/21 09:00 07/11/21 16:22 DC 07/11/21 08:05 Ferrous Sulfate (Ferrous Sulfate) 325 mg DAILY PO 07/12/21 09:00 07/26/21 09:02 Haloperidol (Haldol) 5 mg BID PO 07/11/21 09:00 07/11/21 16:23 DC 07/11/21 08:05 Haloperidol (Haldol) 5 mg BID PO 07/11/21 21:00 07/12/21 16:20 DC 07/12/21 09:16 Haloperidol (Haldol) 5 mg Q4HP PRN PO AGITATION 07/12/21 16:15 07/21/21 17:41 Haloperidol (Haldol) 5 mg STAT STAT IM 07/20/21 12:43 07/20/21 12:44 DC 07/20/21 12:56 Haloperidol (Haldol) 10 mg BID PO 07/12/21 21:00 07/26/21 09:02 Home Med (Home Med List Complete!) ASDIRECTED XX 07/09/21 17:45 07/09/21 17:46 DC Levofloxacin (Levaquin) 750 mg Q48H PO 07/17/21 18:00 07/23/21 18:01 DC 07/21/21 17:41 Levothyroxine Sodium (Synthroid) 25 mcg DAILY@06 PO 07/11/21 06:00 07/11/21 16:24 DC Levothyroxine Sodium (Synthroid) 25 mcg DAILY@0600 PO 07/12/21 06:00 07/26/21 06:08 Lidocaine (Lidoderm Patch) 2 patch DAILY TD 07/18/21 17:00 07/26/21 09:01 Lisinopril (Prinivil) 5 mg DAILY PO 07/11/21 09:00 07/11/21 16:25 DC 07/11/21 08:05 Lisinopril (Prinivil) 5 mg DAILY PO 07/12/21 09:00 07/15/21 10:26 DC 07/15/21 08:47 Loperamide HCl (Imodium) 2 mg DAILY PO 07/11/21 09:00 07/13/21 09:20 DC 07/12/21 09:16 Lorazepam (Ativan) 0.25 mg BID PRN PO anxiety 07/11/21 15:10 Cancel Lorazepam (Ativan) 0.5 mg STAT STAT PO 07/11/21 09:53 07/11/21 09:54 DC 07/11/21 09:58 Lorazepam (Ativan) 1 mg Q6HP PRN PO ANXIETY 07/18/21 12:00 07/26/21 04:05 Lorazepam (Ativan) 2 mg Q4HP PRN PO ANXIETY/AGITATION 07/12/21 16:15 07/18/21 11:59 DC 07/16/21 04:51 Lorazepam (Ativan) 2 mg STAT STAT IM 07/20/21 12:43 07/20/21 12:44 DC 07/20/21 12:56 Magnesium Hydroxide (Milk Of Magnesia) 30 ml DAILYPRN PRN PO CONSTIPATION 07/11/21 13:45 Meloxicam (Mobic) 15 mg DAILY PO 07/11/21 09:00 07/11/21 16:29 DC 07/11/21 08:06 Meloxicam (Mobic) 15 mg DAILY PO 07/12/21 09:00 07/18/21 13:38 DC 07/18/21 08:53 Miscellaneous (Unresolved Clarification Entry) SEE LABEL COMMENTS DAILY XX 07/17/21 09:00 07/18/21 11:17 DC Miscellaneous (Unresolved Clarification Entry) SEE LABEL COMMENTS DAILY XX 07/21/21 09:00 07/24/21 11:18 DC Miscellaneous (Unresolved Clarification Entry) SEE LABEL COMMENTS DAILY XX 07/24/21 09:00 07/25/21 08:22 DC Miscellaneous (Unresolved Clarification Entry) SEE LABEL COMMENTS DAILY XX 07/25/21 09:00 07/25/21 10:26 DC Nicotine (Nicoderm Cq 21mg) 1 patch DAILYPRN PRN TD NICOTINE WITHDRAWAL 07/11/21 13:45 Non-Formulary Medication ( See Comment Field Below ) REMOVE LIDODERM PATCH DAILY@0500 XX 07/19/21 05:00 07/26/21 06:08 Non-Formulary Medication ( See Comment Field Below ) REMOVE LIDODERM PATCH DAILY@21 XX 07/18/21 21:00 07/19/21 08:35 DC Pregabalin (Lyrica) 100 mg BID PO 07/11/21 09:00 07/11/21 16:30 DC 07/11/21 08:05 Pregabalin (Lyrica) 100 mg BID PO 07/11/21 21:00 07/26/21 09:01 Psyllium Hydrophilic Mucilloid (Metamucil) 1 pkt DAILY PO 07/11/21 09:00 07/11/21 16:31 DC 07/11/21 09:01 Psyllium Hydrophilic Mucilloid (Metamucil) 1 pkt DAILY PO 07/12/21 09:00 07/13/21 09:20 DC Sertraline HCl (Zoloft) 200 mg DAILY PO 07/11/21 09:00 07/11/21 16:34 DC 07/11/21 08:06 Sertraline HCl (Zoloft) 200 mg DAILY PO 07/12/21 09:00 07/26/21 09:01 Tramadol HCl (Ultram) 50 mg Q6HP PRN PO MODERATE PAIN (PS 5-7) 07/18/21 16:25 07/26/21 04:06 Trazodone HCl (Desyrel) 50 mg QHS PO 07/11/21 21:00 07/11/21 13:57 DC Trazodone HCl (Desyrel) 50 mg QHS PO 07/11/21 21:00 07/25/21 20:15 Trazodone HCl (Desyrel) 50 mg QHSP PRN PO INSOMNIA 07/11/21 13:45 07/11/21 16:35 DC Trihexyphenidyl HCl (Artane) 2 mg QHS PO 07/11/21 21:00 07/11/21 16:32 DC Trihexyphenidyl HCl (Artane) 2 mg QHS PO 07/11/21 21:00 07/12/21 16:27 DC 07/12/21 01:06 Vitamin D (Vitamin D) 2,000 units DAILY PO 07/11/21 09:00 07/11/21 16:35 DC 07/11/21 08:05 Vitamin D (Vitamin D) 2,000 units DAILY PO 07/12/21 09:00 07/26/21 09:01 Vitamin E (Vitamin E) 400 units DAILY PO 07/11/21 09:00 07/11/21 16:35 DC 07/11/21 09:01 Vitamin E (Vitamin E) 400 units DAILY PO 07/12/21 09:00 07/26/21 09:02 Allergies Coded Allergies: Penicillins (Verified Allergy, Unknown, rash/hives, 05/21/20) Sulfa (Sulfonamide Antibiotics) (Verified Allergy, Unknown, n/v, 05/21/20) "I get deathly ill, I feel like I'm dying." fluoxetine (Verified Allergy, Unknown, SI, 05/21/20) thioridazine (Verified Allergy, Unknown, 05/21/20) valproic acid (Verified Allergy, Unknown, SEDATION, 05/21/20) RAJEEV LOONEY NP Jul 26, 2021 12:19
[2021-07-26 17:45] VITALS: BP 140/74
[2021-07-26] MEDS: ATORVASTATIN 10 MG TAB PO SCH (20:25)
[2021-07-26] MEDS: traZODone 50 MG TAB PO SCH (20:26)
[2021-07-26] MEDS: ACETAMINOPHEN TAB 650MG DOSE (2X325MG) PO PRN (22:51)
[2021-07-27] MEDS: traMADol 50 MG TAB PO PRN ×3 (03:36→20:14)
[2021-07-27] MEDS: **NOTE PATIENT COMMENT** MISC XX SCH (05:41)
[2021-07-27] MEDS: LEVOTHYROXINE 25MCG TABLET (0.025MG) PO SCH (05:43)
[2021-07-27 06:36] VITALS: BP 111/55
[2021-07-27] MEDS: SERTRALINE 100 MG TAB PO SCH (08:47)
[2021-07-27] MEDS: VITAMIN D 1,000 INTERNATIONAL UNITS TABLET PO SCH (08:47)
[2021-07-27] MEDS: BENZTROPINE 2 MG TAB PO SCH ×2 (08:47→20:14)
[2021-07-27] MEDS: PREGABALIN 100 MG CAP (LYRICA) PO SCH ×2 (08:47→20:13)
[2021-07-27] MEDS: ASPIRIN 81MG ENTERIC TABLET PO SCH (08:47)
[2021-07-27] MEDS: FERROUS SULFATE 325MG TAB PO SCH (08:48)
[2021-07-27] MEDS: VITAMIN E 400 INTERNATIONAL UNITS CAP PO SCH (08:48)
[2021-07-27] MEDS: LIDOCAINE 5% (LIDODERM) PATCH TD SCH (09:37)
--- NOTE | 2021-07-27 17:29 | MHIPNPDOC ---
[facility] Progress Note Progress Note DATE OF SERVICE: 07/27/21 HISTORY: Patient is a 61 -year-old Single, Disabled, Domiciled, , female, who initially came to the ED with medical complaints of back and leg pain. When she was interviewed by EMS and the ER MD she made suicidal statements that she was planning to jump from a bridge or cut wrist. VITAL SIGNS: See below. NEW TEST RESULTS: see lab results CURRENT MEDICATIONS: See below. MENTAL STATUS EXAMINATION: CURRENT MEDICATIONS: See below. MENTAL STATUS EXAMINATION: Patient is a 61-year old female, who appears her stated age, long hair, intense stare, sitting upright on her bed, in hospital clothing, well-kempt, hygiene and grooming is good Speech: Is slowed, but mildly more conversant Language skills are poor Thought processes including: improved coherency Thought content: reports depression and anxiety endorses suicidal ideation, denies planning or intent, denies homicidal ideation. Abstract reasoning, and computation: Poor. Description of associations: Poor concrete. Description of abnormal or psychotic thoughts: See above, also has auditory hallucinations which are command, nonviolent to self or others. Appears paranoid Judgment: improving Insight: improving Orientation: To place and person. Recent and remote memory: fair Attention span and concentration: poor Language: Malay. Fund of knowledge: Below average, based on interview. Mood: " Depressed" Remains dysphoric/apathetic Affect: flat DIAGNOSES: Schizophrenia bipolar type Cannabis use disorder ASSESSMENT: Patient is demonstrating improved ambulation during morning walk. Pt was quite labile this morning in her interview. Was having a very coherent conversation and then was crying immediately after. She appears mildly paranoid and makes bizarre statements. stated that she's "going into a coma" to the RN. Complains of hip and shoulder pains but was paranoid about taking Tramadol, began crying and had to be encouraged to take the medication after the packaging was shown to her multiple times. Patient is not stable for discharge at this time but is more compliant with medications. TSH is stabilizing. MANAGEMENT PLAN: Continue medications. Discharge when stable. Discontinue T.O.O. as patient is compliant with meds. TIME SPENT: 20 minutes. Vital Signs Vital Signs Date Time Temp Pulse Resp B/P (MAP) Pulse Ox O2 Delivery O2 Flow Rate FiO2 07/27/21 12:30 80 18 07/27/21 09:22 134/63 07/27/21 06:36 98.4 95 Room Air Current Medications Current Medications Medications (Trade) Dose Ordered Sig/Floyd Route PRN Reason Start Time Stop Time Status Last Admin Dose Admin Acetaminophen (Tylenol Tab) 650 mg Q6HP PRN PO HEADACHE or MILD DISCOMFORT 07/11/21 13:45 07/19/21 02:51 Al Hydrox/Mg Hydrox/Simethicone (Mylanta) 30 ml Q4HP PRN PO HEARTBURN/INDIGESTION 07/11/21 13:45 Amlodipine Besylate (Norvasc) 5 mg DAILY PO 07/15/21 09:00 07/18/21 13:45 DC 07/18/21 08:53 Amlodipine Besylate (Norvasc) 10 mg DAILY PO 07/19/21 09:00 07/27/21 09:22 Aspirin (Aspirin Chewable) 81 mg DAILY PO 07/11/21 09:00 07/11/21 16:20 DC 07/11/21 08:05 Aspirin (Ecotrin) 81 mg DAILY PO 07/12/21 09:00 07/27/21 08:47 Atorvastatin Calcium (Lipitor) 10 mg QHS PO 07/11/21 21:00 07/11/21 16:20 DC Atorvastatin Calcium (Lipitor) 10 mg QHS PO 07/11/21 21:00 07/26/21 20:25 Benztropine Mesylate (Cogentin) 2 mg BID PO 07/12/21 21:00 07/27/21 08:47 Diphenhydramine HCl (Benadryl) 50 mg STAT STAT IM 07/20/21 12:43 07/20/21 12:44 DC 07/20/21 12:57 Docusate Sodium (Colace) 100 mg DAILY PO 07/11/21 09:00 07/11/21 16:21 DC 07/11/21 08:05 Docusate Sodium (Colace) 100 mg DAILY PO 07/12/21 09:00 07/13/21 09:20 DC 07/12/21 09:15 Docusate Sodium (Colace) 100 mg Q12HP PRN PO CONSTIPATION 07/15/21 10:25 07/23/21 10:13 Ferrous Sulfate (Ferrous Sulfate) 325 mg DAILY PO 07/11/21 09:00 07/11/21 16:22 DC 07/11/21 08:05 Ferrous Sulfate (Ferrous Sulfate) 325 mg DAILY PO 07/12/21 09:00 07/27/21 08:48 Haloperidol (Haldol) 5 mg BID PO 07/11/21 09:00 07/11/21 16:23 DC 07/11/21 08:05 Haloperidol (Haldol) 5 mg BID PO 07/11/21 21:00 07/12/21 16:20 DC 07/12/21 09:16 Haloperidol (Haldol) 5 mg Q4HP PRN PO AGITATION 07/12/21 16:15 07/21/21 17:41 Haloperidol (Haldol) 5 mg STAT STAT IM 07/20/21 12:43 07/20/21 12:44 DC 07/20/21 12:56 Haloperidol (Haldol) 10 mg BID PO 07/12/21 21:00 07/27/21 08:47 Home Med (Home Med List Complete!) ASDIRECTED XX 07/09/21 17:45 07/09/21 17:46 DC Levofloxacin (Levaquin) 750 mg Q48H PO 07/17/21 18:00 07/23/21 18:01 DC 07/21/21 17:41 Levothyroxine Sodium (Synthroid) 25 mcg DAILY@06 PO 07/11/21 06:00 07/11/21 16:24 DC Levothyroxine Sodium (Synthroid) 25 mcg DAILY@0600 PO 07/12/21 06:00 07/27/21 05:43 Lidocaine (Lidoderm Patch) 2 patch DAILY TD 07/18/21 17:00 07/27/21 09:37 Lisinopril (Prinivil) 5 mg DAILY PO 07/11/21 09:00 07/11/21 16:25 DC 07/11/21 08:05 Lisinopril (Prinivil) 5 mg DAILY PO 07/12/21 09:00 07/15/21 10:26 DC 07/15/21 08:47 Loperamide HCl (Imodium) 2 mg DAILY PO 07/11/21 09:00 07/13/21 09:20 DC 07/12/21 09:16 Lorazepam (Ativan) 0.25 mg BID PRN PO anxiety 07/11/21 15:10 Cancel Lorazepam (Ativan) 0.5 mg STAT STAT PO 07/11/21 09:53 07/11/21 09:54 DC 07/11/21 09:58 Lorazepam (Ativan) 1 mg Q6HP PRN PO ANXIETY 07/18/21 12:00 07/26/21 04:05 Lorazepam (Ativan) 2 mg Q4HP PRN PO ANXIETY/AGITATION 07/12/21 16:15 07/18/21 11:59 DC 07/16/21 04:51 Lorazepam (Ativan) 2 mg STAT STAT IM 07/20/21 12:43 07/20/21 12:44 DC 07/20/21 12:56 Magnesium Hydroxide (Milk Of Magnesia) 30 ml DAILYPRN PRN PO CONSTIPATION 07/11/21 13:45 Meloxicam (Mobic) 15 mg DAILY PO 07/11/21 09:00 07/11/21 16:29 DC 07/11/21 08:06 Meloxicam (Mobic) 15 mg DAILY PO 07/12/21 09:00 07/18/21 13:38 DC 07/18/21 08:53 Miscellaneous (Unresolved Clarification Entry) SEE LABEL COMMENTS DAILY XX 07/17/21 09:00 07/18/21 11:17 DC Miscellaneous (Unresolved Clarification Entry) SEE LABEL COMMENTS DAILY XX 07/21/21 09:00 07/24/21 11:18 DC Miscellaneous (Unresolved Clarification Entry) SEE LABEL COMMENTS DAILY XX 07/24/21 09:00 07/25/21 08:22 DC Miscellaneous (Unresolved Clarification Entry) SEE LABEL COMMENTS DAILY XX 07/25/21 09:00 07/25/21 10:26 DC Nicotine (Nicoderm Cq 21mg) 1 patch DAILYPRN PRN TD NICOTINE WITHDRAWAL 07/11/21 13:45 Non-Formulary Medication ( See Comment Field Below ) REMOVE LIDODERM PATCH DAILY@0500 XX 07/19/21 05:00 07/27/21 05:41 Non-Formulary Medication ( See Comment Field Below ) REMOVE LIDODERM PATCH DAILY@21 XX 07/18/21 21:00 07/19/21 08:35 DC Pregabalin (Lyrica) 100 mg BID PO 07/11/21 09:00 07/11/21 16:30 DC 07/11/21 08:05 Pregabalin (Lyrica) 100 mg BID PO 07/11/21 21:00 07/27/21 08:47 Psyllium Hydrophilic Mucilloid (Metamucil) 1 pkt DAILY PO 07/11/21 09:00 07/11/21 16:31 DC 07/11/21 09:01 Psyllium Hydrophilic Mucilloid (Metamucil) 1 pkt DAILY PO 07/12/21 09:00 07/13/21 09:20 DC Sertraline HCl (Zoloft) 200 mg DAILY PO 07/11/21 09:00 07/11/21 16:34 DC 07/11/21 08:06 Sertraline HCl (Zoloft) 200 mg DAILY PO 07/12/21 09:00 07/27/21 08:47 Tramadol HCl (Ultram) 50 mg Q6HP PRN PO MODERATE PAIN (PS 5-7) 07/18/21 16:25 07/27/21 11:44 Trazodone HCl (Desyrel) 50 mg QHS PO 07/11/21 21:00 07/11/21 13:57 DC Trazodone HCl (Desyrel) 50 mg QHS PO 07/11/21 21:00 07/26/21 20:26 Trazodone HCl (Desyrel) 50 mg QHSP PRN PO INSOMNIA 07/11/21 13:45 07/11/21 16:35 DC Trihexyphenidyl HCl (Artane) 2 mg QHS PO 07/11/21 21:00 07/11/21 16:32 DC Trihexyphenidyl HCl (Artane) 2 mg QHS PO 07/11/21 21:00 07/12/21 16:27 DC 07/12/21 01:06 Vitamin D (Vitamin D) 2,000 units DAILY PO 07/11/21 09:00 07/11/21 16:35 DC 07/11/21 08:05 Vitamin D (Vitamin D) 2,000 units DAILY PO 07/12/21 09:00 07/27/21 08:47 Vitamin E (Vitamin E) 400 units DAILY PO 07/11/21 09:00 07/11/21 16:35 DC 07/11/21 09:01 Vitamin E (Vitamin E) 400 units DAILY PO 07/12/21 09:00 07/27/21 08:48 Allergies Coded Allergies: Penicillins (Verified Allergy, Unknown, rash/hives, 05/21/20) Sulfa (Sulfonamide Antibiotics) (Verified Allergy, Unknown, n/v, 05/21/20) "I get deathly ill, I feel like I'm dying." fluoxetine (Verified Allergy, Unknown, SI, 05/21/20) thioridazine (Verified Allergy, Unknown, 05/21/20) valproic acid (Verified Allergy, Unknown, SEDATION, 05/21/20) RAJEEV LOONEY JIG HAND Jul 27, 2021 17:29
[2021-07-27] MEDS: ATORVASTATIN 10 MG TAB PO SCH (20:14)
[2021-07-27] MEDS: traZODone 50 MG TAB PO SCH (20:14)
[2021-07-28] MEDS: **NOTE PATIENT COMMENT** MISC XX SCH ×2 (05:45→06:18)
[2021-07-28] MEDS: LEVOTHYROXINE 25MCG TABLET (0.025MG) PO SCH (06:19)
[2021-07-28 06:34] VITALS: BP 143/67
[2021-07-28] MEDS: LIDOCAINE 5% (LIDODERM) PATCH TD SCH (09:05)
[2021-07-28] MEDS: VITAMIN E 400 INTERNATIONAL UNITS CAP PO SCH (09:06)
[2021-07-28] MEDS: SERTRALINE 100 MG TAB PO SCH (09:06)
[2021-07-28] MEDS: VITAMIN D 1,000 INTERNATIONAL UNITS TABLET PO SCH (09:06)
[2021-07-28] MEDS: PREGABALIN 100 MG CAP (LYRICA) PO SCH ×2 (09:06→21:54)
[2021-07-28] MEDS: ASPIRIN 81MG ENTERIC TABLET PO SCH (09:06)
[2021-07-28] MEDS: FERROUS SULFATE 325MG TAB PO SCH (09:06)
[2021-07-28] MEDS: BENZTROPINE 2 MG TAB PO SCH ×2 (09:07→21:57)
[2021-07-28] MEDS: traMADol 50 MG TAB PO PRN ×3 (09:08→21:55)
[2021-07-28] MEDS: LORazepam 1 MG TAB PO PRN ×2 (09:08→15:37)
--- NOTE | 2021-07-28 12:53 | MHIPNPDOC ---
[facility] Progress Note Progress Note DATE OF SERVICE: 07/28/21 HISTORY: Patient is a 61 -year-old Single, Disabled, Domiciled, , female, who initially came to the ED with medical complaints of back and leg pain. When she was interviewed by EMS and the ER MD she made suicidal statements that she was planning to jump from a bridge or cut wrist. VITAL SIGNS: See below. NEW TEST RESULTS: see lab results CURRENT MEDICATIONS: See below. MENTAL STATUS EXAMINATION: CURRENT MEDICATIONS: See below. MENTAL STATUS EXAMINATION: Patient is a 61-year old female, who appears her stated age, long hair, intense stare, sitting upright on her bed, in hospital clothing, well-kempt, hygiene and grooming is good Speech: Is slowed, but mildly more conversant Language skills are fair Thought processes including:coherent Thought content: reports depression and anxiety endorses suicidal ideation, denies planning or intent, denies homicidal ideation. Abstract reasoning, and computation: Poor. Description of associations: Poor concrete. Description of abnormal or psychotic thoughts: See above, also has auditory hallucinations which are command, nonviolent to self or others. Appears paranoid Judgment: improving Insight: improving Orientation: To place and person. Recent and remote memory: fair Attention span and concentration: poor Language: Korean. Fund of knowledge: Below average, based on interview. Mood: " Depressed" Dysphoric Remains dysphoric/apathetic DIAGNOSES: Schizophrenia bipolar type Cannabis use disorder ASSESSMENT: Patient has retarded psychomotor movement. Poor eye contact, has minimal responses and is irritable in the interview. Found in her bed, sleeping. Had very little conversation and does not engage today. Observed to be depressed, irritable and anxious. Drank Ensure but could not be encouraged to eat. At this time patient may need to be transferred to [facility] for continued hospitalization as she was improving but appears to have had no improvement in two days. She is dysphoric and apathetic. Having little to no dialogue. No longer requires a sitter but now is preferring to stay in bed. MANAGEMENT PLAN: Continue medications. Discharge when stable. Discontinue T.O.O. as patient is compliant with meds. Probable transfer to [facility]. TIME SPENT: 20 minutes. Vital Signs Vital Signs Date Time Temp Pulse Resp B/P (MAP) Pulse Ox O2 Delivery O2 Flow Rate FiO2 07/28/21 10:02 72 16 07/28/21 09:08 63 07/28/21 09:07 143/67 07/28/21 06:34 97.7 Room Air Current Medications Current Medications Medications (Trade) Dose Ordered Sig/Floyd Route PRN Reason Start Time Stop Time Status Last Admin Dose Admin Acetaminophen (Tylenol Tab) 650 mg Q6HP PRN PO HEADACHE or MILD DISCOMFORT 07/11/21 13:45 07/19/21 02:51 Al Hydrox/Mg Hydrox/Simethicone (Mylanta) 30 ml Q4HP PRN PO HEARTBURN/INDIGESTION 07/11/21 13:45 Amlodipine Besylate (Norvasc) 5 mg DAILY PO 07/15/21 09:00 07/18/21 13:45 DC 07/18/21 08:53 Amlodipine Besylate (Norvasc) 10 mg DAILY PO 07/19/21 09:00 07/28/21 09:07 Aspirin (Aspirin Chewable) 81 mg DAILY PO 07/11/21 09:00 07/11/21 16:20 DC 07/11/21 08:05 Aspirin (Ecotrin) 81 mg DAILY PO 07/12/21 09:00 07/28/21 09:06 Atorvastatin Calcium (Lipitor) 10 mg QHS PO 07/11/21 21:00 07/11/21 16:20 DC Atorvastatin Calcium (Lipitor) 10 mg QHS PO 07/11/21 21:00 07/27/21 20:14 Benztropine Mesylate (Cogentin) 2 mg BID PO 07/12/21 21:00 07/28/21 09:07 Diphenhydramine HCl (Benadryl) 50 mg STAT STAT IM 07/20/21 12:43 07/20/21 12:44 DC 07/20/21 12:57 Docusate Sodium (Colace) 100 mg DAILY PO 07/11/21 09:00 07/11/21 16:21 DC 07/11/21 08:05 Docusate Sodium (Colace) 100 mg DAILY PO 07/12/21 09:00 07/13/21 09:20 DC 07/12/21 09:15 Docusate Sodium (Colace) 100 mg Q12HP PRN PO CONSTIPATION 07/15/21 10:25 07/23/21 10:13 Ferrous Sulfate (Ferrous Sulfate) 325 mg DAILY PO 07/11/21 09:00 07/11/21 16:22 DC 07/11/21 08:05 Ferrous Sulfate (Ferrous Sulfate) 325 mg DAILY PO 07/12/21 09:00 07/28/21 09:06 Haloperidol (Haldol) 5 mg BID PO 07/11/21 09:00 07/11/21 16:23 DC 07/11/21 08:05 Haloperidol (Haldol) 5 mg BID PO 07/11/21 21:00 07/12/21 16:20 DC 07/12/21 09:16 Haloperidol (Haldol) 5 mg Q4HP PRN PO AGITATION 07/12/21 16:15 07/21/21 17:41 Haloperidol (Haldol) 5 mg STAT STAT IM 07/20/21 12:43 07/20/21 12:44 DC 07/20/21 12:56 Haloperidol (Haldol) 10 mg BID PO 07/12/21 21:00 07/28/21 09:06 Home Med (Home Med List Complete!) ASDIRECTED XX 07/09/21 17:45 07/09/21 17:46 DC Levofloxacin (Levaquin) 750 mg Q48H PO 07/17/21 18:00 07/23/21 18:01 DC 07/21/21 17:41 Levothyroxine Sodium (Synthroid) 25 mcg DAILY@06 PO 07/11/21 06:00 07/11/21 16:24 DC Levothyroxine Sodium (Synthroid) 25 mcg DAILY@0600 PO 07/12/21 06:00 07/28/21 06:19 Lidocaine (Lidoderm Patch) 2 patch DAILY TD 07/18/21 17:00 07/28/21 09:05 Lisinopril (Prinivil) 5 mg DAILY PO 07/11/21 09:00 07/11/21 16:25 DC 07/11/21 08:05 Lisinopril (Prinivil) 5 mg DAILY PO 07/12/21 09:00 07/15/21 10:26 DC 07/15/21 08:47 Loperamide HCl (Imodium) 2 mg DAILY PO 07/11/21 09:00 07/13/21 09:20 DC 07/12/21 09:16 Lorazepam (Ativan) 0.25 mg BID PRN PO anxiety 07/11/21 15:10 Cancel Lorazepam (Ativan) 0.5 mg STAT STAT PO 07/11/21 09:53 07/11/21 09:54 DC 07/11/21 09:58 Lorazepam (Ativan) 1 mg Q6HP PRN PO ANXIETY 07/18/21 12:00 07/28/21 09:08 Lorazepam (Ativan) 2 mg Q4HP PRN PO ANXIETY/AGITATION 07/12/21 16:15 07/18/21 11:59 DC 07/16/21 04:51 Lorazepam (Ativan) 2 mg STAT STAT IM 07/20/21 12:43 07/20/21 12:44 DC 07/20/21 12:56 Magnesium Hydroxide (Milk Of Magnesia) 30 ml DAILYPRN PRN PO CONSTIPATION 07/11/21 13:45 Meloxicam (Mobic) 15 mg DAILY PO 07/11/21 09:00 07/11/21 16:29 DC 07/11/21 08:06 Meloxicam (Mobic) 15 mg DAILY PO 07/12/21 09:00 07/18/21 13:38 DC 07/18/21 08:53 Miscellaneous (Unresolved Clarification Entry) SEE LABEL COMMENTS DAILY XX 07/17/21 09:00 07/18/21 11:17 DC Miscellaneous (Unresolved Clarification Entry) SEE LABEL COMMENTS DAILY XX 07/21/21 09:00 07/24/21 11:18 DC Miscellaneous (Unresolved Clarification Entry) SEE LABEL COMMENTS DAILY XX 07/24/21 09:00 07/25/21 08:22 DC Miscellaneous (Unresolved Clarification Entry) SEE LABEL COMMENTS DAILY XX 07/25/21 09:00 07/25/21 10:26 DC Nicotine (Nicoderm Cq 21mg) 1 patch DAILYPRN PRN TD NICOTINE WITHDRAWAL 07/11/21 13:45 Non-Formulary Medication ( See Comment Field Below ) REMOVE LIDODERM PATCH DAILY@0500 XX 07/19/21 05:00 07/28/21 06:18 Non-Formulary Medication ( See Comment Field Below ) REMOVE LIDODERM PATCH DAILY@21 XX 07/18/21 21:00 07/19/21 08:35 DC Pregabalin (Lyrica) 100 mg BID PO 07/11/21 09:00 07/11/21 16:30 DC 07/11/21 08:05 Pregabalin (Lyrica) 100 mg BID PO 07/11/21 21:00 07/28/21 09:06 Psyllium Hydrophilic Mucilloid (Metamucil) 1 pkt DAILY PO 07/11/21 09:00 07/11/21 16:31 DC 07/11/21 09:01 Psyllium Hydrophilic Mucilloid (Metamucil) 1 pkt DAILY PO 07/12/21 09:00 07/13/21 09:20 DC Sertraline HCl (Zoloft) 200 mg DAILY PO 07/11/21 09:00 07/11/21 16:34 DC 07/11/21 08:06 Sertraline HCl (Zoloft) 200 mg DAILY PO 07/12/21 09:00 07/28/21 09:06 Tramadol HCl (Ultram) 50 mg Q6HP PRN PO MODERATE PAIN (PS 5-7) 07/18/21 16:25 07/28/21 09:08 Trazodone HCl (Desyrel) 50 mg QHS PO 07/11/21 21:00 07/11/21 13:57 DC Trazodone HCl (Desyrel) 50 mg QHS PO 07/11/21 21:00 07/27/21 20:14 Trazodone HCl (Desyrel) 50 mg QHSP PRN PO INSOMNIA 07/11/21 13:45 07/11/21 16:35 DC Trihexyphenidyl HCl (Artane) 2 mg QHS PO 07/11/21 21:00 07/11/21 16:32 DC Trihexyphenidyl HCl (Artane) 2 mg QHS PO 07/11/21 21:00 07/12/21 16:27 DC 07/12/21 01:06 Vitamin D (Vitamin D) 2,000 units DAILY PO 07/11/21 09:00 07/11/21 16:35 DC 07/11/21 08:05 Vitamin D (Vitamin D) 2,000 units DAILY PO 07/12/21 09:00 07/28/21 09:06 Vitamin E (Vitamin E) 400 units DAILY PO 07/11/21 09:00 07/11/21 16:35 DC 07/11/21 09:01 Vitamin E (Vitamin E) 400 units DAILY PO 07/12/21 09:00 07/28/21 09:06 Allergies Coded Allergies: Penicillins (Verified Allergy, Unknown, rash/hives, 05/21/20) Sulfa (Sulfonamide Antibiotics) (Verified Allergy, Unknown, n/v, 05/21/20) "I get deathly ill, I feel like I'm dying." fluoxetine (Verified Allergy, Unknown, SI, 05/21/20) thioridazine (Verified Allergy, Unknown, 05/21/20) valproic acid (Verified Allergy, Unknown, SEDATION, 05/21/20) RAJEEV LOONEY RUG WEAVER Jul 28, 2021 12:53
[2021-07-28] MEDS: ACETAMINOPHEN TAB 650MG DOSE (2X325MG) PO PRN (13:45)
[2021-07-28 18:19] VITALS: BP 116/60
[2021-07-28] MEDS: ATORVASTATIN 10 MG TAB PO SCH (21:56)
[2021-07-28] MEDS: traZODone 50 MG TAB PO SCH (21:57)
[2021-07-29] MEDS: LORazepam 1 MG TAB PO PRN (03:58)
[2021-07-29] MEDS: **NOTE PATIENT COMMENT** MISC XX SCH ×2 (05:00→21:07)
[2021-07-29] MEDS: LEVOTHYROXINE 25MCG TABLET (0.025MG) PO SCH (07:11)
[2021-07-29] MEDS: PREGABALIN 100 MG CAP (LYRICA) PO SCH ×2 (09:20→21:07)
[2021-07-29] MEDS: VITAMIN E 400 INTERNATIONAL UNITS CAP PO SCH (09:20)
[2021-07-29] MEDS: ASPIRIN 81MG ENTERIC TABLET PO SCH (09:20)
[2021-07-29] MEDS: BENZTROPINE 2 MG TAB PO SCH ×2 (09:21→21:06)
[2021-07-29] MEDS: VITAMIN D 1,000 INTERNATIONAL UNITS TABLET PO SCH (09:21)
[2021-07-29] MEDS: SERTRALINE 100 MG TAB PO SCH (09:21)
[2021-07-29] MEDS: FERROUS SULFATE 325MG TAB PO SCH (09:21)
[2021-07-29 09:25] VITALS: BP 98/53
[2021-07-29] MEDS: traMADol 50 MG TAB PO PRN ×2 (09:25→21:06)
[2021-07-29 18:55] VITALS: BP 113/56
[2021-07-29] MEDS: ATORVASTATIN 10 MG TAB PO SCH (21:06)
[2021-07-29] MEDS: traZODone 50 MG TAB PO SCH (21:07)
[2021-07-30] MEDS: haloperidoL 5 MG TAB PO PRN (04:42)
[2021-07-30] MEDS: ACETAMINOPHEN TAB 650MG DOSE (2X325MG) PO PRN (04:43)
[2021-07-30] MEDS: LEVOTHYROXINE 25MCG TABLET (0.025MG) PO SCH (05:13)
[2021-07-30 05:16] VITALS: BP 109/62
--- NOTE | 2021-07-30 05:21 | IPNPDOC ---
Text Note Date of Service Significant event NOTE Notified patient with flank pain and back pain. Portably she has recently had a UTI and was treated with Levaquin however she refused to fourth dose. Reportedly she has been refusing meds frequently. Her vitals are 99.9 Fahrenheit, heart rate 56, respiratory rate 18, blood pressure 113/56. Patient has had some relief with tramadol. She also has Tylenol and Lidoderm patch. Given concern for worsening UTI/ pyelonephritis with patient noncompliance of antibiotic- will opt for UA and urine culture as well as a.m. lab work. Consider CT imaging pending course. VS,Fishbone, I+O VS, Fishbone, I+O Vital Signs Date Time Temp Pulse Resp B/P (MAP) Pulse Ox O2 Delivery O2 Flow Rate FiO2 07/29/21 22:00 18 Room Air 07/29/21 21:06 98 07/29/21 18:55 99.9 56 113/56 (75) BARRINGTON SHERIDAN NP Jul 30, 2021 05:21
[2021-07-30 06:00] VITALS: BP 109/62
[2021-07-30 06:52] LABS: HEMATOCRIT 39.1 % (36.0-47.0); HEMOGLOBIN 12.6 g/dl (12.0-15.5); LYMPH # 2.3 10^3/uL (1.5-5.0); LYMPH % 30.3 % (24.0-44.0); MEAN CORPUSCULAR HEMOGLOBIN 27.8 pg (27.0-33.0); MEAN CORPUSCULAR HGB CONC 32.2 g/dl (32.0-36.5); MEAN CORPUSCULAR VOLUME 86.1 fl (80.0-96.0); MONO # 0.6 10^3/uL (0.0-0.8); MONO % 8.2 % (2.0-8.0); NEUTROPHILS # 4.6 10^3/uL (1.5-8.5); NEUTROPHILS % 61.2 % (36.0-66.0); PLATELET COUNT, AUTOMATED 279 10^3/uL (150-450); RED BLOOD COUNT 4.54 10^6/uL (4.00-5.40); WHITE BLOOD COUNT 7.6 10^3/uL (4.0-10.0)
[2021-07-30 07:13] LABS: ALBUMIN 3.5 GM/DL (3.2-5.2); ALT/SGPT 26 U/L (12-78); BILIRUBIN,TOTAL 0.3 MG/DL (0.2-1.0); BLOOD UREA NITROGEN 16 MG/DL (7-18); CALCIUM LEVEL 9.4 MG/DL (8.8-10.2); CARBON DIOXIDE LEVEL 29 MEQ/L (21-32); CHLORIDE LEVEL 103 MEQ/L (98-107); CREATININE FOR GFR 0.97 MG/DL (0.55-1.30); GLOMERULAR FILTRATION RATE > 60.0 (>45); GLUCOSE, FASTING 97 MG/DL (70-100); POTASSIUM SERUM 4.2 MEQ/L (3.5-5.1); SODIUM LEVEL 137 MEQ/L (136-145); TOTAL PROTEIN 6.5 GM/DL (6.4-8.2)
--- NOTE | 2021-07-30 08:40 | REP ---
INDICATION: dysuria. COMPARISON: None. TECHNIQUE: Real-time sonographic evaluation of the kidneys with Doppler FINDINGS: Multiple ultrasonographic images of the right kidney show the right kidney to measure 10.1 x 4.1 x 4.4 cm. The renal cortical echotexture is unremarkable. There are no masses. There is good corticomedullary differentiation. There is no hydronephrosis. There are no perinephric fluid collections. Multiple ultrasonographic images of the left kidney show the left kidney to measure 8.6 x 2.8 x 2.9 cm. The renal cortical echotexture is unremarkable. There is renal cortical thinning. There is a hypoechoic 2 x 1.5 x 2.3 cm sized structure seen in the superior pole region. There is some posterior wall enhancement without significant increased through transmission. Doppler shows no internal blood flow. There is poor corticomedullary differentiation. There is no hydronephrosis. There are no perinephric fluid collections. IMPRESSION: 1. Complex appearing left renal cyst as described above. Since are no priors comparison consider pre and postcontrast enhanced renal CT. 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 2. Unremarkable appearing right kidney. <Electronically signed by Juan Antonio Rodriguez > 07/30/21 [id number]
[2021-07-30] MEDS: PREGABALIN 100 MG CAP (LYRICA) PO SCH ×2 (10:15→21:30)
[2021-07-30] MEDS: SERTRALINE 100 MG TAB PO SCH (10:15)
[2021-07-30] MEDS: FERROUS SULFATE 325MG TAB PO SCH (10:15)
[2021-07-30] MEDS: VITAMIN E 400 INTERNATIONAL UNITS CAP PO SCH (10:15)
[2021-07-30] MEDS: ASPIRIN 81MG ENTERIC TABLET PO SCH (10:15)
[2021-07-30] MEDS: VITAMIN D 1,000 INTERNATIONAL UNITS TABLET PO SCH (10:16)
[2021-07-30] MEDS: BENZTROPINE 2 MG TAB PO SCH ×2 (10:16→21:30)
[2021-07-30] MEDS: LIDOCAINE 5% (LIDODERM) PATCH TD SCH (10:17)
--- NOTE | 2021-07-30 12:22 | IPNPDOC ---
Text Note Date of Service The patient was seen on 07/30/21. NOTE Subjective: Patient continues to complain of low back pain. Patient was pres cribed a course of Levaquin however patient refused the fourth dose of antibiotic Physical exam pertinent for tenderness over lumbar spine. I will check UA, previous UA was positive for pyuria. Kidney ultrasound was negative for hydronephrosis. We will proceed with lumbar sacral MRI to rule out abscess or discitis We will continue pain management with tramadol and lidocaine patch VS,Fishbone, I+O VS, Fishbone, I+O Laboratory Tests 07/30/21 06:26 Vital Signs Date Time Temp Pulse Resp B/P (MAP) Pulse Ox O2 Delivery O2 Flow Rate FiO2 07/30/21 10:16 73 109/62 07/30/21 06:00 98.6 18 100 07/30/21 05:16 Room Air ARPITA BUCKNER Jul 30, 2021 12:22
[2021-07-30 16:30] VITALS: BP 178/89
[2021-07-30] MEDS: traZODone 50 MG TAB PO SCH (21:30)
[2021-07-30] MEDS: **NOTE PATIENT COMMENT** MISC XX SCH (21:30)
[2021-07-30] MEDS: ATORVASTATIN 10 MG TAB PO SCH (21:30)
[2021-07-30] MEDS: traMADol 50 MG TAB PO PRN (22:04)
[2021-07-31] MEDS: LEVOTHYROXINE 25MCG TABLET (0.025MG) PO SCH (05:29)
[2021-07-31] MEDS: ACETAMINOPHEN TAB 650MG DOSE (2X325MG) PO PRN (05:38)
[2021-07-31 06:09] VITALS: BP 163/99
[2021-07-31] MEDS: BENZTROPINE 2 MG TAB PO SCH ×2 (09:37→21:09)
[2021-07-31] MEDS: ASPIRIN 81MG ENTERIC TABLET PO SCH (09:37)
[2021-07-31] MEDS: PREGABALIN 100 MG CAP (LYRICA) PO SCH ×2 (09:37→21:09)
[2021-07-31] MEDS: SERTRALINE 100 MG TAB PO SCH (09:37)
[2021-07-31] MEDS: LIDOCAINE 5% (LIDODERM) PATCH TD SCH (09:37)
[2021-07-31] MEDS: VITAMIN E 400 INTERNATIONAL UNITS CAP PO SCH (09:37)
[2021-07-31] MEDS: VITAMIN D 1,000 INTERNATIONAL UNITS TABLET PO SCH (09:37)
[2021-07-31] MEDS: FERROUS SULFATE 325MG TAB PO SCH (09:38)
--- NOTE | 2021-07-31 10:14 | MHIPNPDOC ---
[facility] Progress Note Progress Note DATE OF SERVICE: 07/31/21 HISTORY: [Patient is a 61 -year-old Single, Disabled, Domiciled, , female, who initially came to the ED with medical complaints of back and leg pain. When she was interviewed by EMS and the ER MD she made suicidal statements that she was planning to jump from a bridge or cut wrist. VITAL SIGNS: See below. NEW TEST RESULTS: see EKG, ordered today CURRENT MEDICATIONS: See below. MENTAL STATUS EXAMINATION: CURRENT MEDICATIONS: See below. MENTAL STATUS EXAMINATION: Patient is a 61-year old female, who appears her stated age, long hair, intense stare, sitting upright on her bed, in hospital clothing, unkempt, hygiene and grooming is fair Speech: Is slowed, but mildly more conversant Language skills are fair Thought processes including:coherent Thought content: reports depression and anxiety denies SI?HI, denies homicidal ideation. Abstract reasoning, and computation: Poor. Description of associations: Poor concrete. Description of abnormal or psychotic thoughts: Appears paranoid Judgment: improving Insight: improving Orientation: To place and person. Recent and remote memory: fair Attention span and concentration: poor Language: Cymraes. Fund of knowledge: Below average, based on interview. Mood: " Depressed" Dysphoric Remains dysphoric/apathetic DIAGNOSES: Schizophrenia bipolar type Cannabis use disorder ASSESSMENT: Patient has improvement in her psychomotor movement, she is walking in the hallway but states that she chest pain. She makes minimal responses and is irritable in the interview. Whens asked about the chest pain, she states that it is substernal, able to be reproduced when elevating both arms. Upon further questioning, patient became paranoid and irritable states that she wants to be seen by a "different doctor" She demanded provider to leave the room. Per staff, little improvement and had numerous complaints over the weekend about pain, kidney/flank pain. EKG ordered for patient's complaint of chest pain. Attempted a 2nd visit, research staff member stated that room and patient needed attention in terms of hygiene. Attempted to assist patient with ADLS, patient refused and demanded provider to leave the room again. MANAGEMENT PLAN: Continue medications. Discharge when stable. Discontinue T.O.O. as patient is compliant with meds. Discharge pending TIME SPENT: 25 minutes. Vital Signs Vital Signs Date Time Temp Pulse Resp B/P (MAP) Pulse Ox O2 Delivery O2 Flow Rate FiO2 07/31/21 09:37 70 148/96 07/31/21 06:09 97.6 18 96 Room Air Current Medications Current Medications Medications (Trade) Dose Ordered Sig/Floyd Route PRN Reason Start Time Stop Time Status Last Admin Dose Admin Acetaminophen (Tylenol Tab) 650 mg Q6HP PRN PO HEADACHE or MILD DISCOMFORT 07/11/21 13:45 07/31/21 05:38 Al Hydrox/Mg Hydrox/Simethicone (Mylanta) 30 ml Q4HP PRN PO HEARTBURN/INDIGESTION 07/11/21 13:45 Amlodipine Besylate (Norvasc) 5 mg DAILY PO 07/15/21 09:00 07/18/21 13:45 DC 07/18/21 08:53 Amlodipine Besylate (Norvasc) 10 mg DAILY PO 07/19/21 09:00 07/31/21 09:37 Aspirin (Aspirin Chewable) 81 mg DAILY PO 07/11/21 09:00 07/11/21 16:20 DC 07/11/21 08:05 Aspirin (Ecotrin) 81 mg DAILY PO 07/12/21 09:00 07/31/21 09:37 Atorvastatin Calcium (Lipitor) 10 mg QHS PO 07/11/21 21:00 07/11/21 16:20 DC Atorvastatin Calcium (Lipitor) 10 mg QHS PO 07/11/21 21:00 07/30/21 21:30 Benztropine Mesylate (Cogentin) 2 mg BID PO 07/12/21 21:00 07/31/21 09:37 Diphenhydramine HCl (Benadryl) 50 mg STAT STAT IM 07/20/21 12:43 07/20/21 12:44 DC 07/20/21 12:57 Docusate Sodium (Colace) 100 mg DAILY PO 07/11/21 09:00 07/11/21 16:21 DC 07/11/21 08:05 Docusate Sodium (Colace) 100 mg DAILY PO 07/12/21 09:00 07/13/21 09:20 DC 07/12/21 09:15 Docusate Sodium (Colace) 100 mg Q12HP PRN PO CONSTIPATION 07/15/21 10:25 07/23/21 10:13 Ferrous Sulfate (Ferrous Sulfate) 325 mg DAILY PO 07/11/21 09:00 07/11/21 16:22 DC 07/11/21 08:05 Ferrous Sulfate (Ferrous Sulfate) 325 mg DAILY PO 07/12/21 09:00 07/31/21 09:38 Haloperidol (Haldol) 5 mg BID PO 07/11/21 09:00 07/11/21 16:23 DC 07/11/21 08:05 Haloperidol (Haldol) 5 mg BID PO 07/11/21 21:00 07/12/21 16:20 DC 07/12/21 09:16 Haloperidol (Haldol) 5 mg Q4HP PRN PO AGITATION 07/12/21 16:15 07/30/21 04:42 Haloperidol (Haldol) 5 mg STAT STAT IM 07/20/21 12:43 07/20/21 12:44 DC 07/20/21 12:56 Haloperidol (Haldol) 10 mg BID PO 07/30/21 21:00 07/31/21 09:37 Haloperidol (Haldol) 10 mg BID PO 07/12/21 21:00 07/30/21 17:46 DC 07/29/21 21:06 Home Med (Home Med List Complete!) ASDIRECTED XX 07/09/21 17:45 07/09/21 17:46 DC Levofloxacin (Levaquin) 750 mg Q48H PO 07/17/21 18:00 07/23/21 18:01 DC 07/21/21 17:41 Levothyroxine Sodium (Synthroid) 25 mcg DAILY@06 PO 07/11/21 06:00 07/11/21 16:24 DC Levothyroxine Sodium (Synthroid) 25 mcg DAILY@0600 PO 07/12/21 06:00 07/31/21 05:29 Lidocaine (Lidoderm Patch) 2 patch DAILY TD 07/18/21 17:00 07/29/21 08:58 DC 07/28/21 09:05 Lidocaine (Lidoderm Patch) 2 patch DAILY TD 07/30/21 09:00 07/31/21 09:37 Lisinopril (Prinivil) 5 mg DAILY PO 07/11/21 09:00 07/11/21 16:25 DC 07/11/21 08:05 Lisinopril (Prinivil) 5 mg DAILY PO 07/12/21 09:00 07/15/21 10:26 DC 07/15/21 08:47 Loperamide HCl (Imodium) 2 mg DAILY PO 07/11/21 09:00 07/13/21 09:20 DC 07/12/21 09:16 Lorazepam (Ativan) 0.25 mg BID PRN PO anxiety 07/11/21 15:10 Cancel Lorazepam (Ativan) 0.5 mg STAT STAT PO 07/11/21 09:53 07/11/21 09:54 DC 07/11/21 09:58 Lorazepam (Ativan) 1 mg Q6HP PRN PO ANXIETY 07/18/21 12:00 07/28/21 15:37 Lorazepam (Ativan) 2 mg Q4HP PRN PO ANXIETY/AGITATION 07/12/21 16:15 07/18/21 11:59 DC 07/16/21 04:51 Lorazepam (Ativan) 2 mg STAT STAT IM 07/20/21 12:43 07/20/21 12:44 DC 07/20/21 12:56 Magnesium Hydroxide (Milk Of Magnesia) 30 ml DAILYPRN PRN PO CONSTIPATION 07/11/21 13:45 07/30/21 07:57 Meloxicam (Mobic) 15 mg DAILY PO 07/11/21 09:00 07/11/21 16:29 DC 07/11/21 08:06 Meloxicam (Mobic) 15 mg DAILY PO 07/12/21 09:00 07/18/21 13:38 DC 07/18/21 08:53 Miscellaneous (Unresolved Clarification Entry) SEE LABEL COMMENTS DAILY XX 07/17/21 09:00 07/18/21 11:17 DC Miscellaneous (Unresolved Clarification Entry) SEE LABEL COMMENTS DAILY XX 07/21/21 09:00 07/24/21 11:18 DC Miscellaneous (Unresolved Clarification Entry) SEE LABEL COMMENTS DAILY XX 07/24/21 09:00 07/25/21 08:22 DC Miscellaneous (Unresolved Clarification Entry) SEE LABEL COMMENTS DAILY XX 07/25/21 09:00 07/25/21 10:26 DC Nicotine (Nicoderm Cq 21mg) 1 patch DAILYPRN PRN TD NICOTINE WITHDRAWAL 07/11/21 13:45 Non-Formulary Medication ( See Comment Field Below ) REMOVE LIDODERM PATCH DAILY@0500 XX 07/19/21 05:00 07/29/21 08:58 DC 07/29/21 05:00 Non-Formulary Medication ( See Comment Field Below ) REMOVE LIDODERM PATCH DAILY@21 XX 07/18/21 21:00 07/19/21 08:35 DC Non-Formulary Medication ( See Comment Field Below ) REMOVE LIDODERM PATCH DAILY@2100 XX 07/29/21 21:00 07/30/21 21:30 Pregabalin (Lyrica) 100 mg BID PO 07/11/21 09:00 07/11/21 16:30 DC 07/11/21 08:05 Pregabalin (Lyrica) 100 mg BID PO 07/11/21 21:00 07/31/21 09:37 Psyllium Hydrophilic Mucilloid (Metamucil) 1 pkt DAILY PO 07/11/21 09:00 07/11/21 16:31 DC 07/11/21 09:01 Psyllium Hydrophilic Mucilloid (Metamucil) 1 pkt DAILY PO 07/12/21 09:00 07/13/21 09:20 DC Sertraline HCl (Zoloft) 200 mg DAILY PO 07/11/21 09:00 07/11/21 16:34 DC 07/11/21 08:06 Sertraline HCl (Zoloft) 200 mg DAILY PO 07/12/21 09:00 07/31/21 09:37 Tramadol HCl (Ultram) 50 mg Q6HP PRN PO MODERATE PAIN (PS 5-7) 07/18/21 16:25 07/30/21 22:04 Trazodone HCl (Desyrel) 50 mg QHS PO 07/11/21 21:00 07/11/21 13:57 DC Trazodone HCl (Desyrel) 50 mg QHS PO 07/11/21 21:00 07/30/21 21:30 Trazodone HCl (Desyrel) 50 mg QHSP PRN PO INSOMNIA 07/11/21 13:45 07/11/21 16:35 DC Trihexyphenidyl HCl (Artane) 2 mg QHS PO 07/11/21 21:00 07/11/21 16:32 DC Trihexyphenidyl HCl (Artane) 2 mg QHS PO 07/11/21 21:00 07/12/21 16:27 DC 07/12/21 01:06 Vitamin D (Vitamin D) 2,000 units DAILY PO 07/11/21 09:00 07/11/21 16:35 DC 07/11/21 08:05 Vitamin D (Vitamin D) 2,000 units DAILY PO 07/12/21 09:00 07/31/21 09:37 Vitamin E (Vitamin E) 400 units DAILY PO 07/11/21 09:00 07/11/21 16:35 DC 07/11/21 09:01 Vitamin E (Vitamin E) 400 units DAILY PO 07/12/21 09:00 07/31/21 09:37 Allergies Coded Allergies: Penicillins (Verified Allergy, Unknown, rash/hives, 05/21/20) Sulfa (Sulfonamide Antibiotics) (Verified Allergy, Unknown, n/v, 05/21/20) "I get deathly ill, I feel like I'm dying." fluoxetine (Verified Allergy, Unknown, SI, 05/21/20) thioridazine (Verified Allergy, Unknown, 05/21/20) valproic acid (Verified Allergy, Unknown, SEDATION, 05/21/20) RAJEEV LOONEY NP Jul 31, 2021 10:14
[2021-07-31] MEDS: traMADol 50 MG TAB PO PRN ×2 (14:57→21:14)
[2021-07-31] MEDS: **NOTE PATIENT COMMENT** MISC XX SCH (21:09)
[2021-07-31] MEDS: traZODone 50 MG TAB PO SCH (21:09)
[2021-07-31] MEDS: ATORVASTATIN 10 MG TAB PO SCH (21:09)
[2021-08-01] MEDS: ACETAMINOPHEN TAB 650MG DOSE (2X325MG) PO PRN (00:10)
[2021-08-01] MEDS: LEVOTHYROXINE 25MCG TABLET (0.025MG) PO SCH (05:46)
[2021-08-01] MEDS: traMADol 50 MG TAB PO PRN (05:47)
[2021-08-01 05:50] VITALS: BP 116/64
[2021-08-01] MEDS: VITAMIN D 1,000 INTERNATIONAL UNITS TABLET PO SCH (08:16)
[2021-08-01] MEDS: SERTRALINE 100 MG TAB PO SCH (08:16)
[2021-08-01] MEDS: PREGABALIN 100 MG CAP (LYRICA) PO SCH ×2 (08:16→21:31)
[2021-08-01] MEDS: LIDOCAINE 5% (LIDODERM) PATCH TD SCH (08:17)
[2021-08-01] MEDS: VITAMIN E 400 INTERNATIONAL UNITS CAP PO SCH (08:17)
[2021-08-01] MEDS: FERROUS SULFATE 325MG TAB PO SCH (08:17)
[2021-08-01] MEDS: BENZTROPINE 2 MG TAB PO SCH ×2 (08:17→21:31)
[2021-08-01] MEDS: ASPIRIN 81MG ENTERIC TABLET PO SCH (08:17)
--- NOTE | 2021-08-01 11:03 | IPNPDOC ---
Date Seen The patient was seen on 08/01/21. Progress Note SUBJECTIVE: Patient complains of radicular pain from the lower back around L4-L5 radiating to the right leg 7 out of 10 on the pain scale better when she lies on her left side without movement worse when she stands up and ambulates with her walker She denies any saddle anesthesia urinary or bladder issues. She says that her urine is orange. No fever chills she denies any bilateral lower extremity weakness. OBJECTIVE PHYSICAL EXAMINATION: VITAL SIGNS: Please see below. EXTREMITIES: PATIENT HAS MILD TENDERNESS OVER THE L3-L5 REGION. Limited range of motion with straight leg test due to pain in the back. LABORATORY DATA, IMAGING STUDIES, MICROBIOLOGY: Please see below. ASSESSMENT AND PLAN: 61-year-old female with history of lumbosacral spondylosis with radiculopathy -Patient refuses MRI of the lumbar spine. -Patient refuses pain management or neurosurgical referral. -Patient was previously followed at [facility] pain management service in 2019, but refuses to see them as outpatient. -Patient was evaluated by a neurosurgeon in [place], but refuses to see neurosurgery as outpatient. -Patient refuses work-up, but request increasing frequency of her pain medic ations.. VS, I&O, 24H, Fishbone Vital Signs/I&O Vital Signs Date Time Temp Pulse Resp B/P (MAP) Pulse Ox O2 Delivery O2 Flow Rate FiO2 08/01/21 08:16 78 129/60 08/01/21 06:17 19 96 08/01/21 05:50 98.2 Room Air HAIDER JIMENEZ MD Aug 01, 2021 11:03
[2021-08-01] MEDS ORDERED: SENOKOT S TAB PO PRN (11:05)
[2021-08-01] MEDS ORDERED: NALOXONE INJ 0.4MG/1ML VIAL (J2310 PER 1MG) IV PRN (11:05)
[2021-08-01] MEDS ORDERED: MIRALAX *UNIT DOSE* 17GM PACKET PO PRN (11:05)
[2021-08-01] MEDS: PILL CUTTER 1 EACH XX PRN (12:43)
[2021-08-01] MEDS ORDERED: MORPHINE 30 MG TAB **MSIR PO ONE (13:00)
--- NOTE | 2021-08-01 14:33 | MHIPNPDOC ---
[facility] Progress Note Progress Note DATE OF SERVICE: 08/01/21 HISTORY: Patient is a 61 -year-old Single, Disabled, Domiciled, , female, who initially came to the ED with medical complaints of back and leg pain. When she was interviewed by EMS and the ER MD she made suicidal statements that she was planning to jump from a bridge or cut wrist. VITAL SIGNS: See below. NEW TEST RESULTS: see EKG, ordered today CURRENT MEDICATIONS: See below. MENTAL STATUS EXAMINATION: CURRENT MEDICATIONS: See below. MENTAL STATUS EXAMINATION: Patient is a 61-year old female, who appears her stated age, long hair, intense stare, sitting upright on her bed, in hospital clothing, unkempt, hygiene and grooming is fair Speech: Is slowed, but mildly more conversant Language skills are fair Thought processes including:coherent Thought content: reports depression and anxiety denies SI?HI, denies homicidal ideation. Abstract reasoning, and computation: Poor. Description of associations: Poor concrete. Description of abnormal or psychotic thoughts: Appears paranoid Judgment: improving Insight: improving Orientation: To place and person. Recent and remote memory: fair Attention span and concentration: poor Language: Slovak. Fund of knowledge: Below average, based on interview. Mood: " Depressed" Dysphoric Remains dysphoric/apathetic DIAGNOSES: Schizophrenia bipolar type Cannabis use disorder ASSESSMENT: Patient is dismissive for the past two days. Requesting this provider not speak with her. She had complaints of lower back pain but would not allow provider to assess. She has refused all diagnostic testing and appears to be quite paranoid this morning. Later in the morning she was ambulating and was initially agreeable to see the provider a second time and then became paranoid again and refused to speak. Will encourage Haldol Decanoate. Patient appears to be listening to internal stimuli. Patient has had decreasing improvement overall, treatment team feels patient would benefit from a longer hospitalization at [facility] 16:57 Patient is attempting to leave the unit, asking for staff to open the doors because she states her sister is here. Patient remains delusional. Redirected to her room and she is fretful and crying. MANAGEMENT PLAN: Continue medications. Discharge when stable. Discontinue T.O.O. as patient is compliant with meds. Transfer to [facility] TIME SPENT: 25 minutes. Vital Signs Vital Signs Date Time Temp Pulse Resp B/P (MAP) Pulse Ox O2 Delivery O2 Flow Rate FiO2 08/01/21 08:16 78 129/60 08/01/21 06:17 19 96 08/01/21 05:50 98.2 Room Air Current Medications Current Medications Medications (Trade) Dose Ordered Sig/Floyd Route PRN Reason Start Time Stop Time Status Last Admin Dose Admin Acetaminophen (Tylenol Tab) 650 mg Q6HP PRN PO HEADACHE or MILD DISCOMFORT 07/11/21 13:45 08/01/21 00:10 Al Hydrox/Mg Hydrox/Simethicone (Mylanta) 30 ml Q4HP PRN PO HEARTBURN/INDIGESTION 07/11/21 13:45 Amlodipine Besylate (Norvasc) 5 mg DAILY PO 07/15/21 09:00 07/18/21 13:45 DC 07/18/21 08:53 Amlodipine Besylate (Norvasc) 10 mg DAILY PO 07/19/21 09:00 08/01/21 08:16 Aspirin (Aspirin Chewable) 81 mg DAILY PO 07/11/21 09:00 07/11/21 16:20 DC 07/11/21 08:05 Aspirin (Ecotrin) 81 mg DAILY PO 07/12/21 09:00 08/01/21 08:17 Atorvastatin Calcium (Lipitor) 10 mg QHS PO 07/11/21 21:00 07/11/21 16:20 DC Atorvastatin Calcium (Lipitor) 10 mg QHS PO 07/11/21 21:00 07/31/21 21:09 Benztropine Mesylate (Cogentin) 2 mg BID PO 07/12/21 21:00 08/01/21 08:17 Diphenhydramine HCl (Benadryl) 50 mg STAT STAT IM 07/20/21 12:43 07/20/21 12:44 DC 07/20/21 12:57 Docusate Sodium (Colace) 100 mg DAILY PO 07/11/21 09:00 07/11/21 16:21 DC 07/11/21 08:05 Docusate Sodium (Colace) 100 mg DAILY PO 07/12/21 09:00 07/13/21 09:20 DC 07/12/21 09:15 Docusate Sodium (Colace) 100 mg Q12HP PRN PO CONSTIPATION 07/15/21 10:25 07/23/21 10:13 Ferrous Sulfate (Ferrous Sulfate) 325 mg DAILY PO 07/11/21 09:00 07/11/21 16:22 DC 07/11/21 08:05 Ferrous Sulfate (Ferrous Sulfate) 325 mg DAILY PO 07/12/21 09:00 08/01/21 08:17 Haloperidol (Haldol) 5 mg BID PO 07/11/21 09:00 07/11/21 16:23 DC 07/11/21 08:05 Haloperidol (Haldol) 5 mg BID PO 07/11/21 21:00 07/12/21 16:20 DC 07/12/21 09:16 Haloperidol (Haldol) 5 mg Q4HP PRN PO AGITATION 07/12/21 16:15 07/30/21 04:42 Haloperidol (Haldol) 5 mg STAT STAT IM 07/20/21 12:43 07/20/21 12:44 DC 07/20/21 12:56 Haloperidol (Haldol) 10 mg BID PO 07/30/21 21:00 08/01/21 08:17 Haloperidol (Haldol) 10 mg BID PO 07/12/21 21:00 07/30/21 17:46 DC 07/29/21 21:06 Home Med (Home Med List Complete!) ASDIRECTED XX 07/09/21 17:45 07/09/21 17:46 DC Levofloxacin (Levaquin) 750 mg Q48H PO 07/17/21 18:00 07/23/21 18:01 DC 07/21/21 17:41 Levothyroxine Sodium (Synthroid) 25 mcg DAILY@06 PO 07/11/21 06:00 07/11/21 16:24 DC Levothyroxine Sodium (Synthroid) 25 mcg DAILY@0600 PO 07/12/21 06:00 08/01/21 05:46 Lidocaine (Lidoderm Patch) 2 patch DAILY TD 07/18/21 17:00 07/29/21 08:58 DC 07/28/21 09:05 Lidocaine (Lidoderm Patch) 2 patch DAILY TD 07/30/21 09:00 08/01/21 08:17 Lisinopril (Prinivil) 5 mg DAILY PO 07/11/21 09:00 07/11/21 16:25 DC 07/11/21 08:05 Lisinopril (Prinivil) 5 mg DAILY PO 07/12/21 09:00 07/15/21 10:26 DC 07/15/21 08:47 Loperamide HCl (Imodium) 2 mg DAILY PO 07/11/21 09:00 07/13/21 09:20 DC 07/12/21 09:16 Lorazepam (Ativan) 0.25 mg BID PRN PO anxiety 07/11/21 15:10 Cancel Lorazepam (Ativan) 0.5 mg STAT STAT PO 07/11/21 09:53 07/11/21 09:54 DC 07/11/21 09:58 Lorazepam (Ativan) 1 mg Q6HP PRN PO ANXIETY 07/18/21 12:00 07/28/21 15:37 Lorazepam (Ativan) 2 mg Q4HP PRN PO ANXIETY/AGITATION 07/12/21 16:15 07/18/21 11:59 DC 07/16/21 04:51 Lorazepam (Ativan) 2 mg STAT STAT IM 07/20/21 12:43 07/20/21 12:44 DC 07/20/21 12:56 Magnesium Hydroxide (Milk Of Magnesia) 30 ml DAILYPRN PRN PO CONSTIPATION 07/11/21 13:45 07/30/21 07:57 Meloxicam (Mobic) 15 mg DAILY PO 07/11/21 09:00 07/11/21 16:29 DC 07/11/21 08:06 Meloxicam (Mobic) 15 mg DAILY PO 07/12/21 09:00 07/18/21 13:38 DC 07/18/21 08:53 Miscellaneous (Unresolved Clarification Entry) SEE LABEL COMMENTS DAILY XX 07/17/21 09:00 07/18/21 11:17 DC Miscellaneous (Unresolved Clarification Entry) SEE LABEL COMMENTS DAILY XX 07/21/21 09:00 07/24/21 11:18 DC Miscellaneous (Unresolved Clarification Entry) SEE LABEL COMMENTS DAILY XX 07/24/21 09:00 07/25/21 08:22 DC Miscellaneous (Unresolved Clarification Entry) SEE LABEL COMMENTS DAILY XX 07/25/21 09:00 07/25/21 10:26 DC Nicotine (Nicoderm Cq 21mg) 1 patch DAILYPRN PRN TD NICOTINE WITHDRAWAL 07/11/21 13:45 Non-Formulary Medication ( See Comment Field Below ) REMOVE LIDODERM PATCH DAILY@0500 XX 07/19/21 05:00 07/29/21 08:58 DC 07/29/21 05:00 Non-Formulary Medication ( See Comment Field Below ) REMOVE LIDODERM PATCH DAILY@21 XX 07/18/21 21:00 07/19/21 08:35 DC Non-Formulary Medication ( See Comment Field Below ) REMOVE LIDODERM PATCH DAILY@2100 XX 07/29/21 21:00 07/31/21 21:09 Pregabalin (Lyrica) 100 mg BID PO 07/11/21 09:00 07/11/21 16:30 DC 07/11/21 08:05 Pregabalin (Lyrica) 100 mg BID PO 07/11/21 21:00 08/01/21 08:16 Psyllium Hydrophilic Mucilloid (Metamucil) 1 pkt DAILY PO 07/11/21 09:00 07/11/21 16:31 DC 07/11/21 09:01 Psyllium Hydrophilic Mucilloid (Metamucil) 1 pkt DAILY PO 07/12/21 09:00 07/13/21 09:20 DC Sertraline HCl (Zoloft) 200 mg DAILY PO 07/11/21 09:00 07/11/21 16:34 DC 07/11/21 08:06 Sertraline HCl (Zoloft) 200 mg DAILY PO 07/12/21 09:00 08/01/21 08:16 Tramadol HCl (Ultram) 50 mg Q6HP PRN PO MODERATE PAIN (PS 5-7) 07/18/21 16:25 08/01/21 05:47 Trazodone HCl (Desyrel) 50 mg QHS PO 07/11/21 21:00 07/11/21 13:57 DC Trazodone HCl (Desyrel) 50 mg QHS PO 07/11/21 21:00 07/31/21 21:09 Trazodone HCl (Desyrel) 50 mg QHSP PRN PO INSOMNIA 07/11/21 13:45 07/11/21 16:35 DC Trihexyphenidyl HCl (Artane) 2 mg QHS PO 07/11/21 21:00 07/11/21 16:32 DC Trihexyphenidyl HCl (Artane) 2 mg QHS PO 07/11/21 21:00 07/12/21 16:27 DC 07/12/21 01:06 Vitamin D (Vitamin D) 2,000 units DAILY PO 07/11/21 09:00 07/11/21 16:35 DC 07/11/21 08:05 Vitamin D (Vitamin D) 2,000 units DAILY PO 07/12/21 09:00 08/01/21 08:16 Vitamin E (Vitamin E) 400 units DAILY PO 07/11/21 09:00 07/11/21 16:35 DC 07/11/21 09:01 Vitamin E (Vitamin E) 400 units DAILY PO 07/12/21 09:00 08/01/21 08:17 Allergies Coded Allergies: Penicillins (Verified Allergy, Unknown, rash/hives, 05/21/20) Sulfa (Sulfonamide Antibiotics) (Verified Allergy, Unknown, n/v, 05/21/20) "I get deathly ill, I feel like I'm dying." fluoxetine (Verified Allergy, Unknown, SI, 05/21/20) thioridazine (Verified Allergy, Unknown, 05/21/20) valproic acid (Verified Allergy, Unknown, SEDATION, 05/21/20) RAJEEV LOONEY NP Aug 01, 2021 09:34
[2021-08-01 16:05] VITALS: BP 129/65
[2021-08-01] MEDS: MORPHINE 15 MG SA TAB PO SCH (21:31)
[2021-08-01] MEDS: ATORVASTATIN 10 MG TAB PO SCH (21:31)
[2021-08-01] MEDS: **NOTE PATIENT COMMENT** MISC XX SCH (21:33)
[2021-08-02] MEDS: PILL CUTTER 1 EACH XX PRN ×2 (02:04→14:39)
[2021-08-02] MEDS: MORPHINE 30 MG TAB **MSIR PO PRN ×3 (02:06→23:10)
[2021-08-02] MEDS: LEVOTHYROXINE 25MCG TABLET (0.025MG) PO SCH (05:48)
[2021-08-02 06:53] VITALS: BP 131/80
[2021-08-02] MEDS: VITAMIN D 1,000 INTERNATIONAL UNITS TABLET PO SCH (10:55)
[2021-08-02] MEDS: VITAMIN E 400 INTERNATIONAL UNITS CAP PO SCH (10:55)
[2021-08-02] MEDS: ASPIRIN 81MG ENTERIC TABLET PO SCH (10:55)
[2021-08-02] MEDS: FERROUS SULFATE 325MG TAB PO SCH (10:55)
[2021-08-02] MEDS: BENZTROPINE 2 MG TAB PO SCH ×2 (10:56→20:36)
[2021-08-02] MEDS: PREGABALIN 100 MG CAP (LYRICA) PO SCH ×3 (10:56→20:36)
[2021-08-02] MEDS: SERTRALINE 100 MG TAB PO SCH (10:57)
[2021-08-02] MEDS: MORPHINE 15 MG SA TAB PO SCH (10:57)
[2021-08-02] MEDS: LIDOCAINE 5% (LIDODERM) PATCH TD SCH (10:58)
--- NOTE | 2021-08-02 12:09 | MHIPNPDOC ---
[facility] Progress Note Progress Note DATE OF SERVICE: 08/02/21 HISTORY: Patient is a 61 -year-old Single, Disabled, Domiciled, , female, who initially came to the ED with medical complaints of back and leg pain. When she was interviewed by EMS and the ER MD she made suicidal statements that she was planning to jump from a bridge or cut wrist. VITAL SIGNS: See below. NEW TEST RESULTS: see EKG, ordered today CURRENT MEDICATIONS: See below. MENTAL STATUS EXAMINATION: CURRENT MEDICATIONS: See below. MENTAL STATUS EXAMINATION: Patient is a 61-year old female, who appears her stated age, long hair, intense stare, sitting upright on her bed, in hospital clothing, unkempt, hygiene and grooming is fair Speech: Is slowed, making only minimal responses Language skills are fair Thought processes including:coherent at times Thought content: reports depression and anxiety denies SI/HI, denies homicidal ideation. Abstract reasoning, and computation: Poor. Description of associations: Poor concrete. Description of abnormal or psychotic thoughts: Appears paranoid, reports auditory hallucinations Judgment: poor at times Insight: poor Orientation: To place and person. Recent and remote memory: fair Attention span and concentration: poor Language: Burmese. Fund of knowledge: Below average, based on interview. Mood: " Depressed" Dysphoric Remains dysphoric/apathetic DIAGNOSES: Schizophrenia bipolar type Cannabis use disorder ASSESSMENT: Patient initially found in her room, sleeping and refused to speak with provider. At second attempt patient was reporting continued depression and anxiety. She is reporting auditory hallucinations but denies that they are command in nature. Patient agreed to an MRI, based on the imaging it looks like patient has an abnormality in lower vertebrae in the sacral area. Still awaiting official report. Patient is reporting pain but is ambulating independently with her walker. Patient is agreeable to go to [facility] for further hospitalization as she has made minimal improvement and is not stable to live independently in the community. MANAGEMENT PLAN: Continue medications. Patient is compliant with medications. She is agreeable to the transfer to [facility] Time Spent: 25 minutes Vital Signs Vital Signs Date Time Temp Pulse Resp B/P (MAP) Pulse Ox O2 Delivery O2 Flow Rate FiO2 08/02/21 10:57 16 08/02/21 10:56 80 136/84 08/02/21 06:53 97.7 98 Room Air Current Medications Current Medications Medications (Trade) Dose Ordered Sig/Floyd Route PRN Reason Start Time Stop Time Status Last Admin Dose Admin Acetaminophen (Tylenol Tab) 650 mg Q6HP PRN PO HEADACHE or MILD DISCOMFORT 07/11/21 13:45 08/01/21 00:10 Al Hydrox/Mg Hydrox/Simethicone (Mylanta) 30 ml Q4HP PRN PO HEARTBURN/INDIGESTION 07/11/21 13:45 Amlodipine Besylate (Norvasc) 5 mg DAILY PO 07/15/21 09:00 07/18/21 13:45 DC 07/18/21 08:53 Amlodipine Besylate (Norvasc) 10 mg DAILY PO 07/19/21 09:00 08/02/21 10:56 Aspirin (Aspirin Chewable) 81 mg DAILY PO 07/11/21 09:00 07/11/21 16:20 DC 07/11/21 08:05 Aspirin (Ecotrin) 81 mg DAILY PO 07/12/21 09:00 08/02/21 10:55 Atorvastatin Calcium (Lipitor) 10 mg QHS PO 07/11/21 21:00 07/11/21 16:20 DC Atorvastatin Calcium (Lipitor) 10 mg QHS PO 07/11/21 21:00 08/01/21 21:31 Benztropine Mesylate (Cogentin) 2 mg BID PO 07/12/21 21:00 08/02/21 10:56 Diphenhydramine HCl (Benadryl) 50 mg STAT STAT IM 07/20/21 12:43 07/20/21 12:44 DC 07/20/21 12:57 Docusate Sodium (Colace) 100 mg DAILY PO 07/11/21 09:00 07/11/21 16:21 DC 07/11/21 08:05 Docusate Sodium (Colace) 100 mg DAILY PO 07/12/21 09:00 07/13/21 09:20 DC 07/12/21 09:15 Docusate Sodium (Colace) 100 mg Q12HP PRN PO CONSTIPATION 07/15/21 10:25 07/23/21 10:13 Ferrous Sulfate (Ferrous Sulfate) 325 mg DAILY PO 07/11/21 09:00 07/11/21 16:22 DC 07/11/21 08:05 Ferrous Sulfate (Ferrous Sulfate) 325 mg DAILY PO 07/12/21 09:00 08/02/21 10:55 Haloperidol (Haldol) 5 mg BID PO 07/11/21 09:00 07/11/21 16:23 DC 07/11/21 08:05 Haloperidol (Haldol) 5 mg BID PO 07/11/21 21:00 07/12/21 16:20 DC 07/12/21 09:16 Haloperidol (Haldol) 5 mg Q4HP PRN PO AGITATION 07/12/21 16:15 07/30/21 04:42 Haloperidol (Haldol) 5 mg STAT STAT IM 07/20/21 12:43 07/20/21 12:44 DC 07/20/21 12:56 Haloperidol (Haldol) 10 mg BID PO 07/30/21 21:00 08/02/21 10:55 Haloperidol (Haldol) 10 mg BID PO 07/12/21 21:00 07/30/21 17:46 DC 07/29/21 21:06 Home Med (Home Med List Complete!) ASDIRECTED XX 07/09/21 17:45 07/09/21 17:46 DC Levofloxacin (Levaquin) 750 mg Q48H PO 07/17/21 18:00 07/23/21 18:01 DC 07/21/21 17:41 Levothyroxine Sodium (Synthroid) 25 mcg DAILY@06 PO 07/11/21 06:00 07/11/21 16:24 DC Levothyroxine Sodium (Synthroid) 25 mcg DAILY@0600 PO 07/12/21 06:00 08/02/21 05:48 Lidocaine (Lidoderm Patch) 2 patch DAILY TD 07/18/21 17:00 07/29/21 08:58 DC 07/28/21 09:05 Lidocaine (Lidoderm Patch) 2 patch DAILY TD 07/30/21 09:00 08/02/21 10:58 Lisinopril (Prinivil) 5 mg DAILY PO 07/11/21 09:00 07/11/21 16:25 DC 07/11/21 08:05 Lisinopril (Prinivil) 5 mg DAILY PO 07/12/21 09:00 07/15/21 10:26 DC 07/15/21 08:47 Loperamide HCl (Imodium) 2 mg DAILY PO 07/11/21 09:00 07/13/21 09:20 DC 07/12/21 09:16 Lorazepam (Ativan) 0.25 mg BID PRN PO anxiety 07/11/21 15:10 Cancel Lorazepam (Ativan) 0.5 mg STAT STAT PO 07/11/21 09:53 07/11/21 09:54 DC 07/11/21 09:58 Lorazepam (Ativan) 1 mg Q6HP PRN PO ANXIETY 07/18/21 12:00 07/28/21 15:37 Lorazepam (Ativan) 2 mg Q4HP PRN PO ANXIETY/AGITATION 07/12/21 16:15 07/18/21 11:59 DC 07/16/21 04:51 Lorazepam (Ativan) 2 mg STAT STAT IM 07/20/21 12:43 07/20/21 12:44 DC 07/20/21 12:56 Magnesium Hydroxide (Milk Of Magnesia) 30 ml DAILYPRN PRN PO CONSTIPATION 07/11/21 13:45 08/01/21 11:06 DC 07/30/21 07:57 Magnesium Hydroxide (Milk Of Magnesia) 30 ml Q4HP PRN PO CONSTIPATION 08/01/21 11:05 Meloxicam (Mobic) 15 mg DAILY PO 07/11/21 09:00 07/11/21 16:29 DC 07/11/21 08:06 Meloxicam (Mobic) 15 mg DAILY PO 07/12/21 09:00 07/18/21 13:38 DC 07/18/21 08:53 Miscellaneous (Unresolved Clarification Entry) SEE LABEL COMMENTS DAILY XX 07/17/21 09:00 07/18/21 11:17 DC Miscellaneous (Unresolved Clarification Entry) SEE LABEL COMMENTS DAILY XX 07/21/21 09:00 07/24/21 11:18 DC Miscellaneous (Unresolved Clarification Entry) SEE LABEL COMMENTS DAILY XX 07/24/21 09:00 07/25/21 08:22 DC Miscellaneous (Unresolved Clarification Entry) SEE LABEL COMMENTS DAILY XX 07/25/21 09:00 07/25/21 10:26 DC Morphine Sulfate (Ms Contin) 15 mg BID PO 08/01/21 21:00 08/02/21 10:57 Morphine Sulfate (Msir) 15 mg Q4HP PRN PO SEVERE PAIN (PS 8-10) 08/01/21 17:00 08/02/21 02:06 Naloxone HCl (Narcan) 0.1 mg Q5MP PRN IV RESP. RATE < 10 08/01/21 11:05 08/02/21 07:57 DC Nicotine (Nicoderm Cq 21mg) 1 patch DAILYPRN PRN TD NICOTINE WITHDRAWAL 07/11/21 13:45 Non-Formulary Medication ( See Comment Field Below ) REMOVE LIDODERM PATCH DAILY@0500 XX 07/19/21 05:00 07/29/21 08:58 DC 07/29/21 05:00 Non-Formulary Medication ( See Comment Field Below ) REMOVE LIDODERM PATCH DAILY@21 XX 07/18/21 21:00 07/19/21 08:35 DC Non-Formulary Medication ( See Comment Field Below ) REMOVE LIDODERM PATCH DAILY@2100 XX 07/29/21 21:00 08/01/21 21:33 Polyethylene Glycol (Miralax) 1 pkt DAILYPRN PRN PO CONSTIPATION 08/01/21 11:05 Pregabalin (Lyrica) 100 mg BID PO 07/11/21 09:00 07/11/21 16:30 DC 07/11/21 08:05 Pregabalin (Lyrica) 100 mg BID PO 07/11/21 21:00 08/02/21 10:56 Psyllium Hydrophilic Mucilloid (Metamucil) 1 pkt DAILY PO 07/11/21 09:00 07/11/21 16:31 DC 07/11/21 09:01 Psyllium Hydrophilic Mucilloid (Metamucil) 1 pkt DAILY PO 07/12/21 09:00 07/13/21 09:20 DC Senna/Docusate Sodium (Senokot S) 2 tab BIDP PRN PO CONSTIPATION 08/01/21 11:05 Sertraline HCl (Zoloft) 200 mg DAILY PO 07/11/21 09:00 07/11/21 16:34 DC 07/11/21 08:06 Sertraline HCl (Zoloft) 200 mg DAILY PO 07/12/21 09:00 08/02/21 10:57 Tramadol HCl (Ultram) 50 mg Q6HP PRN PO MODERATE PAIN (PS 5-7) 07/18/21 16:25 08/01/21 11:04 DC 08/01/21 05:47 Trazodone HCl (Desyrel) 50 mg QHS PO 07/11/21 21:00 08/01/21 11:04 DC 07/31/21 21:09 Trazodone HCl (Desyrel) 50 mg QHS PO 07/11/21 21:00 07/11/21 13:57 DC Trazodone HCl (Desyrel) 50 mg QHSP PRN PO INSOMNIA 07/11/21 13:45 07/11/21 16:35 DC Trihexyphenidyl HCl (Artane) 2 mg QHS PO 07/11/21 21:00 07/11/21 16:32 DC Trihexyphenidyl HCl (Artane) 2 mg QHS PO 07/11/21 21:00 07/12/21 16:27 DC 07/12/21 01:06 Vitamin D (Vitamin D) 2,000 units DAILY PO 07/11/21 09:00 07/11/21 16:35 DC 07/11/21 08:05 Vitamin D (Vitamin D) 2,000 units DAILY PO 07/12/21 09:00 08/02/21 10:55 Vitamin E (Vitamin E) 400 units DAILY PO 07/11/21 09:00 07/11/21 16:35 DC 07/11/21 09:01 Vitamin E (Vitamin E) 400 units DAILY PO 07/12/21 09:00 08/02/21 10:55 Allergies Coded Allergies: Penicillins (Verified Allergy, Unknown, rash/hives, 05/21/20) Sulfa (Sulfonamide Antibiotics) (Verified Allergy, Unknown, n/v, 05/21/20) "I get deathly ill, I feel like I'm dying." fluoxetine (Verified Allergy, Unknown, SI, 05/21/20) thioridazine (Verified Allergy, Unknown, 05/21/20) valproic acid (Verified Allergy, Unknown, SEDATION, 05/21/20) RAJEEV LOONEY NP Aug 02, 2021 12:09
--- NOTE | 2021-08-02 16:12 | IPNPDOC ---
Date Seen The patient was seen on 08/02/21. Progress Note Dr. Trinidad-pain management clinic called re: recommendations for pain control. plan: increase lyrica to 100mg tid when pt is discharged home, pt is to followup with pain management within one week. VS, I&O, 24H, Fishbone Vital Signs/I&O Vital Signs Date Time Temp Pulse Resp B/P (MAP) Pulse Ox O2 Delivery O2 Flow Rate FiO2 08/02/21 15:27 16 08/02/21 10:56 80 136/84 08/02/21 06:53 97.7 98 Room Air HAIDER JIMENEZ MD Aug 02, 2021 16:12
[2021-08-02 16:13] VITALS: BP 130/68
[2021-08-02] MEDS: ATORVASTATIN 10 MG TAB PO SCH (20:36)
[2021-08-02] MEDS: LORazepam 1 MG TAB PO PRN (20:36)
[2021-08-02] MEDS: **NOTE PATIENT COMMENT** MISC XX SCH (21:00)
--- NOTE | 2021-08-02 21:13 | REPVR ---
PROCEDURE INFORMATION: Exam: MR Lumbar Spine Without Contrast Exam date and time: 08/01/2021 6:57 PM Age: 61 years old Clinical indication: Low back pain; Additional info: Abscess TECHNIQUE: Imaging protocol: Multiplanar magnetic resonance images of the lumbar spine without intravenous contrast. COMPARISON: MRI-Spine, L.S. without con 12/21/2019 9:03 AM FINDINGS: Vertebral body heights are maintained. No abnormal marrow signal. 0.7 cm grade 1 anterolisthesis of L4 on L5. No cord compression. No abnormal cord signal. Conus medullaris terminates at the L1 level. Paravertebral soft tissues are unremarkable. L1-L2: No significant canal or foraminal narrowing. L2-L3: No significant canal or foraminal narrowing. L3-L4: Broad-based disc bulge causes mild bilateral foraminal narrowing. No significant canal narrowing. L4-L5: Combination of anterolisthesis, broad-based disc bulge, and facet hypertrophy cause moderate to severe canal narrowing with slight crowding of the cauda equina. Severe bilateral foraminal narrowing with compression of the bilateral exiting L4 nerve roots. L5-S1: No significant canal or foraminal narrowing. IMPRESSION: Spondylotic changes of the lumbar spine, most pronounced at L4-L5 with moderate to severe canal narrowing and slight crowding of the cauda equina, as detailed above. Electronically signed by: Roscoe Lua On 08/02/2021 21:13:00 PM
[2021-08-03] MEDS: LEVOTHYROXINE 25MCG TABLET (0.025MG) PO SCH (05:06)
[2021-08-03] MEDS: MORPHINE 30 MG TAB **MSIR PO PRN ×2 (05:07→17:41)
[2021-08-03] MEDS ORDERED: TUBERCULIN PPD 5 UNITS/0.1 ML ID ONE (08:45)
[2021-08-03] MEDS: **PENDING PPD ENTRY XX SCH (09:00)
[2021-08-03] MEDS: ASPIRIN 81MG ENTERIC TABLET PO SCH (09:21)
[2021-08-03] MEDS: VITAMIN D 1,000 INTERNATIONAL UNITS TABLET PO SCH (09:22)
[2021-08-03] MEDS: FERROUS SULFATE 325MG TAB PO SCH (09:22)
[2021-08-03] MEDS: PREGABALIN 100 MG CAP (LYRICA) PO SCH ×4 (09:22→20:32)
[2021-08-03] MEDS: VITAMIN E 400 INTERNATIONAL UNITS CAP PO SCH (09:22)
[2021-08-03] MEDS: SERTRALINE 100 MG TAB PO SCH (09:22)
[2021-08-03] MEDS: BENZTROPINE 2 MG TAB PO SCH ×3 (09:22→20:32)
[2021-08-03] MEDS: LIDOCAINE 5% (LIDODERM) PATCH TD SCH (09:23)
--- NOTE | 2021-08-03 14:13 | MHIPNPDOC ---
[facility] Progress Note Progress Note DATE OF SERVICE: 08/03/21 HISTORY: Patient is a 61 -year-old Single, Disabled, Domiciled, , female, who initially came to the ED with medical complaints of back and leg pain. When she was interviewed by EMS and the ER MD she made suicidal statements that she was planning to jump from a bridge or cut wrist. VITAL SIGNS: See below. NEW TEST RESULTS: Please see MRI report, CURRENT MEDICATIONS: See below. MENTAL STATUS EXAMINATION: CURRENT MEDICATIONS: See below. MENTAL STATUS EXAMINATION: Patient is a 61-year old female, who appears her stated age, long hair, intense stare, sitting upright on her bed, in hospital clothing, unkempt, hygiene and grooming is fair Speech: Is slowed, making only minimal responses Language skills are fair Thought processes including:coherent at times Thought content: reports depression and anxiety report fleeing/vague SI but denies homicidal ideation. Abstract reasoning, and computation: Poor. Description of associations: Poor concrete. Description of abnormal or psychotic thoughts: Appears paranoid, reports auditory hallucinations Judgment: poor at times Insight: poor Orientation: To place and person. Recent and remote memory: fair Attention span and concentration: poor Language: Lao. Fund of knowledge: Below average, based on interview. Mood: states she is depressed 9/10 and is observed Dysphoric Remains dysphoric/apathetic DIAGNOSES: Schizophrenia bipolar type Cannabis use disorder ASSESSMENT: Patient agreeable to interview. She is ambulating independently in the hallways in in the day room. Patient appears quite dysphoric and she reports her mood as "low". She is reporting that she is sleeping well but still tired during the day and states that she often falls asleep. Patient is compliant with medications. MRI report indicates L4-L5 narrowing of the canal. She reports that her appetite is improved states her depression is 9 out of 10 reports her anxiety is severe at times during the day. She has fleeting suicidal ideation and continues to have auditory hallucinations but they are not command in nature at this time. Patient is agreeable to [facility] for continued hospitalization MANAGEMENT PLAN: Continue medications. Patient is compliant with medications. She is agreeable to the transfer to [facility] Time Spent: 25 minutes Vital Signs Vital Signs Date Time Temp Pulse Resp B/P (MAP) Pulse Ox O2 Delivery O2 Flow Rate FiO2 08/03/21 09:00 78 100/52 08/03/21 06:00 14 08/02/21 16:13 97.9 98 Room Air Current Medications Current Medications Medications (Trade) Dose Ordered Sig/Floyd Route PRN Reason Start Time Stop Time Status Last Admin Dose Admin Acetaminophen (Tylenol Tab) 650 mg Q6HP PRN PO HEADACHE or MILD DISCOMFORT 07/11/21 13:45 08/01/21 00:10 Al Hydrox/Mg Hydrox/Simethicone (Mylanta) 30 ml Q4HP PRN PO HEARTBURN/INDIGESTION 07/11/21 13:45 Amlodipine Besylate (Norvasc) 5 mg DAILY PO 07/15/21 09:00 07/18/21 13:45 DC 07/18/21 08:53 Amlodipine Besylate (Norvasc) 10 mg DAILY PO 07/19/21 09:00 08/02/21 10:56 Aspirin (Aspirin Chewable) 81 mg DAILY PO 07/11/21 09:00 07/11/21 16:20 DC 07/11/21 08:05 Aspirin (Ecotrin) 81 mg DAILY PO 07/12/21 09:00 08/03/21 09:21 Atorvastatin Calcium (Lipitor) 10 mg QHS PO 07/11/21 21:00 07/11/21 16:20 DC Atorvastatin Calcium (Lipitor) 10 mg QHS PO 07/11/21 21:00 08/02/21 20:36 Benztropine Mesylate (Cogentin) 2 mg BID PO 07/12/21 21:00 08/03/21 09:22 Diphenhydramine HCl (Benadryl) 50 mg STAT STAT IM 07/20/21 12:43 07/20/21 12:44 DC 07/20/21 12:57 Docusate Sodium (Colace) 100 mg DAILY PO 07/11/21 09:00 07/11/21 16:21 DC 07/11/21 08:05 Docusate Sodium (Colace) 100 mg DAILY PO 07/12/21 09:00 07/13/21 09:20 DC 07/12/21 09:15 Docusate Sodium (Colace) 100 mg Q12HP PRN PO CONSTIPATION 07/15/21 10:25 07/23/21 10:13 Ferrous Sulfate (Ferrous Sulfate) 325 mg DAILY PO 07/11/21 09:00 07/11/21 16:22 DC 07/11/21 08:05 Ferrous Sulfate (Ferrous Sulfate) 325 mg DAILY PO 07/12/21 09:00 08/03/21 09:22 Haloperidol (Haldol) 5 mg BID PO 07/11/21 09:00 07/11/21 16:23 DC 07/11/21 08:05 Haloperidol (Haldol) 5 mg BID PO 07/11/21 21:00 07/12/21 16:20 DC 07/12/21 09:16 Haloperidol (Haldol) 5 mg Q4HP PRN PO AGITATION 07/12/21 16:15 07/30/21 04:42 Haloperidol (Haldol) 5 mg STAT STAT IM 07/20/21 12:43 07/20/21 12:44 DC 07/20/21 12:56 Haloperidol (Haldol) 10 mg BID PO 07/30/21 21:00 08/03/21 09:22 Haloperidol (Haldol) 10 mg BID PO 07/12/21 21:00 07/30/21 17:46 DC 07/29/21 21:06 Home Med (Home Med List Complete!) ASDIRECTED XX 07/09/21 17:45 07/09/21 17:46 DC Levofloxacin (Levaquin) 750 mg Q48H PO 07/17/21 18:00 07/23/21 18:01 DC 07/21/21 17:41 Levothyroxine Sodium (Synthroid) 25 mcg DAILY@06 PO 07/11/21 06:00 07/11/21 16:24 DC Levothyroxine Sodium (Synthroid) 25 mcg DAILY@0600 PO 07/12/21 06:00 08/03/21 05:06 Lidocaine (Lidoderm Patch) 2 patch DAILY TD 07/18/21 17:00 07/29/21 08:58 DC 07/28/21 09:05 Lidocaine (Lidoderm Patch) 2 patch DAILY TD 07/30/21 09:00 08/03/21 09:23 Lisinopril (Prinivil) 5 mg DAILY PO 07/11/21 09:00 07/11/21 16:25 DC 07/11/21 08:05 Lisinopril (Prinivil) 5 mg DAILY PO 07/12/21 09:00 07/15/21 10:26 DC 07/15/21 08:47 Loperamide HCl (Imodium) 2 mg DAILY PO 07/11/21 09:00 07/13/21 09:20 DC 07/12/21 09:16 Lorazepam (Ativan) 0.25 mg BID PRN PO anxiety 07/11/21 15:10 Cancel Lorazepam (Ativan) 0.5 mg STAT STAT PO 07/11/21 09:53 07/11/21 09:54 DC 07/11/21 09:58 Lorazepam (Ativan) 1 mg Q6HP PRN PO ANXIETY 07/18/21 12:00 08/02/21 20:36 Lorazepam (Ativan) 2 mg Q4HP PRN PO ANXIETY/AGITATION 07/12/21 16:15 07/18/21 11:59 DC 07/16/21 04:51 Lorazepam (Ativan) 2 mg STAT STAT IM 07/20/21 12:43 07/20/21 12:44 DC 07/20/21 12:56 Magnesium Hydroxide (Milk Of Magnesia) 30 ml DAILYPRN PRN PO CONSTIPATION 07/11/21 13:45 08/01/21 11:06 DC 07/30/21 07:57 Magnesium Hydroxide (Milk Of Magnesia) 30 ml Q4HP PRN PO CONSTIPATION 08/01/21 11:05 Meloxicam (Mobic) 15 mg DAILY PO 07/11/21 09:00 07/11/21 16:29 DC 07/11/21 08:06 Meloxicam (Mobic) 15 mg DAILY PO 07/12/21 09:00 07/18/21 13:38 DC 07/18/21 08:53 Miscellaneous (Unresolved Clarification Entry) SEE LABEL COMMENTS DAILY XX 07/17/21 09:00 07/18/21 11:17 DC Miscellaneous (Unresolved Clarification Entry) SEE LABEL COMMENTS DAILY XX 07/21/21 09:00 07/24/21 11:18 DC Miscellaneous (Unresolved Clarification Entry) SEE LABEL COMMENTS DAILY XX 07/24/21 09:00 07/25/21 08:22 DC Miscellaneous (Unresolved Clarification Entry) SEE LABEL COMMENTS DAILY XX 07/25/21 09:00 07/25/21 10:26 DC Morphine Sulfate (Ms Contin) 15 mg BID PO 08/01/21 21:00 08/02/21 16:12 DC 08/02/21 10:57 Morphine Sulfate (Msir) 15 mg Q4HP PRN PO SEVERE PAIN (PS 8-10) 08/01/21 17:00 08/03/21 05:07 Naloxone HCl (Narcan) 0.1 mg Q5MP PRN IV RESP. RATE < 10 08/01/21 11:05 08/02/21 07:57 DC Nicotine (Nicoderm Cq 21mg) 1 patch DAILYPRN PRN TD NICOTINE WITHDRAWAL 07/11/21 13:45 Non-Formulary Medication ( See Comment Field Below ) REMOVE LIDODERM PATCH DAILY@0500 XX 07/19/21 05:00 07/29/21 08:58 DC 07/29/21 05:00 Non-Formulary Medication ( See Comment Field Below ) REMOVE LIDODERM PATCH DAILY@21 XX 07/18/21 21:00 07/19/21 08:35 DC Non-Formulary Medication ( See Comment Field Below ) REMOVE LIDODERM PATCH DAILY@2100 XX 07/29/21 21:00 08/02/21 21:00 Non-Formulary Medication ( See Comment Field Below ) SEE COMMENTS SECTION 1T@10 XX 08/05/21 10:00 08/06/21 09:59 UNV Non-Formulary Medication ( See Comment Field Below ) SEE LABEL COMMENTS DAILY XX 08/03/21 09:00 Polyethylene Glycol (Miralax) 1 pkt DAILYPRN PRN PO CONSTIPATION 08/01/21 11:05 Pregabalin (Lyrica) 100 mg BID PO 07/11/21 09:00 07/11/21 16:30 DC 07/11/21 08:05 Pregabalin (Lyrica) 100 mg BID PO 07/11/21 21:00 08/02/21 16:11 DC 08/02/21 10:56 Pregabalin (Lyrica) 100 mg TID PO 08/02/21 16:00 08/03/21 09:22 Psyllium Hydrophilic Mucilloid (Metamucil) 1 pkt DAILY PO 07/11/21 09:00 07/11/21 16:31 DC 07/11/21 09:01 Psyllium Hydrophilic Mucilloid (Metamucil) 1 pkt DAILY PO 07/12/21 09:00 07/13/21 09:20 DC Senna/Docusate Sodium (Senokot S) 2 tab BIDP PRN PO CONSTIPATION 08/01/21 11:05 Sertraline HCl (Zoloft) 200 mg DAILY PO 07/11/21 09:00 07/11/21 16:34 DC 07/11/21 08:06 Sertraline HCl (Zoloft) 200 mg DAILY PO 07/12/21 09:00 08/03/21 09:22 Tramadol HCl (Ultram) 50 mg Q6HP PRN PO MODERATE PAIN (PS 5-7) 07/18/21 16:25 08/01/21 11:04 DC 08/01/21 05:47 Trazodone HCl (Desyrel) 50 mg QHS PO 07/11/21 21:00 08/01/21 11:04 DC 07/31/21 21:09 Trazodone HCl (Desyrel) 50 mg QHS PO 07/11/21 21:00 07/11/21 13:57 DC Trazodone HCl (Desyrel) 50 mg QHSP PRN PO INSOMNIA 07/11/21 13:45 07/11/21 16:35 DC Trihexyphenidyl HCl (Artane) 2 mg QHS PO 07/11/21 21:00 07/11/21 16:32 DC Trihexyphenidyl HCl (Artane) 2 mg QHS PO 07/11/21 21:00 07/12/21 16:27 DC 07/12/21 01:06 Vitamin D (Vitamin D) 2,000 units DAILY PO 07/11/21 09:00 07/11/21 16:35 DC 07/11/21 08:05 Vitamin D (Vitamin D) 2,000 units DAILY PO 07/12/21 09:00 08/03/21 09:22 Vitamin E (Vitamin E) 400 units DAILY PO 07/11/21 09:00 07/11/21 16:35 DC 07/11/21 09:01 Vitamin E (Vitamin E) 400 units DAILY PO 07/12/21 09:00 08/03/21 09:22 Allergies Coded Allergies: Penicillins (Verified Allergy, Unknown, rash/hives, 05/21/20) Sulfa (Sulfonamide Antibiotics) (Verified Allergy, Unknown, n/v, 05/21/20) "I get deathly ill, I feel like I'm dying." fluoxetine (Verified Allergy, Unknown, SI, 05/21/20) thioridazine (Verified Allergy, Unknown, 05/21/20) valproic acid (Verified Allergy, Unknown, SEDATION, 05/21/20) RAJEEV LOONEY NP Aug 03, 2021 12:11
[2021-08-03 16:00] VITALS: BP 122/58
[2021-08-03] MEDS: ACETAMINOPHEN TAB 650MG DOSE (2X325MG) PO PRN (20:08)
[2021-08-03] MEDS: ATORVASTATIN 10 MG TAB PO SCH ×2 (20:08→20:32)
[2021-08-03] MEDS: **NOTE PATIENT COMMENT** MISC XX SCH (20:09)
[2021-08-04] MEDS: MORPHINE 30 MG TAB **MSIR PO PRN ×3 (01:10→20:32)
[2021-08-04] MEDS: LEVOTHYROXINE 25MCG TABLET (0.025MG) PO SCH (05:54)
[2021-08-04 06:18] VITALS: BP 108/68
[2021-08-04 06:29] VITALS: BP 139/74
[2021-08-04] MEDS: LIDOCAINE 5% (LIDODERM) PATCH TD SCH (08:52)
[2021-08-04] MEDS: VITAMIN E 400 INTERNATIONAL UNITS CAP PO SCH (08:53)
[2021-08-04] MEDS: VITAMIN D 1,000 INTERNATIONAL UNITS TABLET PO SCH (08:53)
[2021-08-04] MEDS: SERTRALINE 100 MG TAB PO SCH (08:53)
[2021-08-04] MEDS: PREGABALIN 100 MG CAP (LYRICA) PO SCH ×3 (08:53→20:29)
[2021-08-04] MEDS: BENZTROPINE 2 MG TAB PO SCH ×2 (08:53→20:29)
[2021-08-04] MEDS: ASPIRIN 81MG ENTERIC TABLET PO SCH (08:53)
[2021-08-04] MEDS: FERROUS SULFATE 325MG TAB PO SCH (08:53)
[2021-08-04] MEDS: **PENDING PPD ENTRY XX SCH (09:00)
--- NOTE | 2021-08-04 10:55 | MHIPNPDOC ---
[facility] Progress Note Progress Note DATE OF SERVICE: 08/04/21 HISTORY: Patient is a 61 -year-old Single, Disabled, Domiciled, , female, who initially came to the ED with medical complaints of back and leg pain. When she was interviewed by EMS and the ER MD she made suicidal statements that she was planning to jump from a bridge or cut wrist. VITAL SIGNS: See below. NEW TEST RESULTS: None CURRENT MEDICATIONS: See below. MENTAL STATUS EXAMINATION: CURRENT MEDICATIONS: See below. MENTAL STATUS EXAMINATION: Patient is a 61-year old female, who appears her stated age, long hair, intense stare, sitting upright on her bed, in hospital clothing, unkempt, hygiene and grooming is fair Speech: Is slowed, and refusing to engage in 1:1 Language skills are fair Thought processes including:coherent today Thought content: will not engage in interview but appears depression and anxiety had previously reported fleeing/vague SI throughout her hospitalization but denies homicidal ideation. Abstract reasoning, and computation: Poor. Description of associations: Poor Description of abnormal or psychotic thoughts: Appears paranoid, reports auditory hallucinations, has been observed responding to internal stimuli Judgment: poor at times Insight: poor Orientation: To place and person. Recent and remote memory: fair Attention span and concentration: poor Language: Macedonian. Fund of knowledge: Below average, based on interview. Mood: appears depressed, observed Dysphoric Remains dysphoric/apathetic DIAGNOSES: Schizophrenia bipolar type Cannabis use disorder ASSESSMENT: Patient refused to meet with provider today "I don't want to talk to you!." She appears internally preoccupied, observed to be responding to internal stimuli. Patient stated to her Primary RN that she is better today and discharging herself. Per the RN who was running groups yesterday, patient was observed talking to herself and acting very restless but also was falling asleep in the groups. MANAGEMENT PLAN: Continue medications. Patient is compliant with medications. Treatment team feels transfer to [facility] is necessary Time Spent: 10 minutes Vital Signs Vital Signs Date Time Temp Pulse Resp B/P (MAP) Pulse Ox O2 Delivery O2 Flow Rate FiO2 08/04/21 08:53 80 138/80 08/04/21 06:29 97.4 18 95 Room Air Current Medications Current Medications Medications (Trade) Dose Ordered Sig/Floyd Route PRN Reason Start Time Stop Time Status Last Admin Dose Admin Acetaminophen (Tylenol Tab) 650 mg Q6HP PRN PO HEADACHE or MILD DISCOMFORT 07/11/21 13:45 08/01/21 00:10 Al Hydrox/Mg Hydrox/Simethicone (Mylanta) 30 ml Q4HP PRN PO HEARTBURN/INDIGESTION 07/11/21 13:45 Amlodipine Besylate (Norvasc) 5 mg DAILY PO 07/15/21 09:00 07/18/21 13:45 DC 07/18/21 08:53 Amlodipine Besylate (Norvasc) 10 mg DAILY PO 07/19/21 09:00 08/04/21 08:53 Aspirin (Aspirin Chewable) 81 mg DAILY PO 07/11/21 09:00 07/11/21 16:20 DC 07/11/21 08:05 Aspirin (Ecotrin) 81 mg DAILY PO 07/12/21 09:00 08/04/21 08:53 Atorvastatin Calcium (Lipitor) 10 mg QHS PO 07/11/21 21:00 07/11/21 16:20 DC Atorvastatin Calcium (Lipitor) 10 mg QHS PO 07/11/21 21:00 08/02/21 20:36 Benztropine Mesylate (Cogentin) 2 mg BID PO 07/12/21 21:00 08/04/21 08:53 Diphenhydramine HCl (Benadryl) 50 mg STAT STAT IM 07/20/21 12:43 07/20/21 12:44 DC 07/20/21 12:57 Docusate Sodium (Colace) 100 mg DAILY PO 07/11/21 09:00 07/11/21 16:21 DC 07/11/21 08:05 Docusate Sodium (Colace) 100 mg DAILY PO 07/12/21 09:00 07/13/21 09:20 DC 07/12/21 09:15 Docusate Sodium (Colace) 100 mg Q12HP PRN PO CONSTIPATION 07/15/21 10:25 07/23/21 10:13 Ferrous Sulfate (Ferrous Sulfate) 325 mg DAILY PO 07/11/21 09:00 07/11/21 16:22 DC 07/11/21 08:05 Ferrous Sulfate (Ferrous Sulfate) 325 mg DAILY PO 07/12/21 09:00 08/04/21 08:53 Haloperidol (Haldol) 5 mg BID PO 07/11/21 09:00 07/11/21 16:23 DC 07/11/21 08:05 Haloperidol (Haldol) 5 mg BID PO 07/11/21 21:00 07/12/21 16:20 DC 07/12/21 09:16 Haloperidol (Haldol) 5 mg Q4HP PRN PO AGITATION 07/12/21 16:15 07/30/21 04:42 Haloperidol (Haldol) 5 mg STAT STAT IM 07/20/21 12:43 07/20/21 12:44 DC 07/20/21 12:56 Haloperidol (Haldol) 10 mg BID PO 07/30/21 21:00 08/04/21 08:53 Haloperidol (Haldol) 10 mg BID PO 07/12/21 21:00 07/30/21 17:46 DC 07/29/21 21:06 Home Med (Home Med List Complete!) ASDIRECTED XX 07/09/21 17:45 07/09/21 17:46 DC Levofloxacin (Levaquin) 750 mg Q48H PO 07/17/21 18:00 07/23/21 18:01 DC 07/21/21 17:41 Levothyroxine Sodium (Synthroid) 25 mcg DAILY@06 PO 07/11/21 06:00 07/11/21 16:24 DC Levothyroxine Sodium (Synthroid) 25 mcg DAILY@0600 PO 07/12/21 06:00 08/04/21 05:54 Lidocaine (Lidoderm Patch) 2 patch DAILY TD 07/18/21 17:00 07/29/21 08:58 DC 07/28/21 09:05 Lidocaine (Lidoderm Patch) 2 patch DAILY TD 07/30/21 09:00 08/04/21 08:52 Lisinopril (Prinivil) 5 mg DAILY PO 07/11/21 09:00 07/11/21 16:25 DC 07/11/21 08:05 Lisinopril (Prinivil) 5 mg DAILY PO 07/12/21 09:00 07/15/21 10:26 DC 07/15/21 08:47 Loperamide HCl (Imodium) 2 mg DAILY PO 07/11/21 09:00 07/13/21 09:20 DC 07/12/21 09:16 Lorazepam (Ativan) 0.25 mg BID PRN PO anxiety 07/11/21 15:10 Cancel Lorazepam (Ativan) 0.5 mg STAT STAT PO 07/11/21 09:53 07/11/21 09:54 DC 07/11/21 09:58 Lorazepam (Ativan) 1 mg Q6HP PRN PO ANXIETY 07/18/21 12:00 08/02/21 20:36 Lorazepam (Ativan) 2 mg Q4HP PRN PO ANXIETY/AGITATION 07/12/21 16:15 07/18/21 11:59 DC 07/16/21 04:51 Lorazepam (Ativan) 2 mg STAT STAT IM 07/20/21 12:43 07/20/21 12:44 DC 07/20/21 12:56 Magnesium Hydroxide (Milk Of Magnesia) 30 ml DAILYPRN PRN PO CONSTIPATION 07/11/21 13:45 08/01/21 11:06 DC 07/30/21 07:57 Magnesium Hydroxide (Milk Of Magnesia) 30 ml Q4HP PRN PO CONSTIPATION 08/01/21 11:05 Meloxicam (Mobic) 15 mg DAILY PO 07/11/21 09:00 07/11/21 16:29 DC 07/11/21 08:06 Meloxicam (Mobic) 15 mg DAILY PO 07/12/21 09:00 07/18/21 13:38 DC 07/18/21 08:53 Miscellaneous (Unresolved Clarification Entry) SEE LABEL COMMENTS DAILY XX 07/17/21 09:00 07/18/21 11:17 DC Miscellaneous (Unresolved Clarification Entry) SEE LABEL COMMENTS DAILY XX 07/21/21 09:00 07/24/21 11:18 DC Miscellaneous (Unresolved Clarification Entry) SEE LABEL COMMENTS DAILY XX 07/24/21 09:00 07/25/21 08:22 DC Miscellaneous (Unresolved Clarification Entry) SEE LABEL COMMENTS DAILY XX 07/25/21 09:00 07/25/21 10:26 DC Morphine Sulfate (Ms Contin) 15 mg BID PO 08/01/21 21:00 08/02/21 16:12 DC 08/02/21 10:57 Morphine Sulfate (Msir) 15 mg Q4HP PRN PO SEVERE PAIN (PS 8-10) 08/01/21 17:00 08/04/21 01:10 Naloxone HCl (Narcan) 0.1 mg Q5MP PRN IV RESP. RATE < 10 08/01/21 11:05 08/02/21 07:57 DC Nicotine (Nicoderm Cq 21mg) 1 patch DAILYPRN PRN TD NICOTINE WITHDRAWAL 07/11/21 13:45 Non-Formulary Medication ( See Comment Field Below ) REMOVE LIDODERM PATCH DAILY@0500 XX 07/19/21 05:00 07/29/21 08:58 DC 07/29/21 05:00 Non-Formulary Medication ( See Comment Field Below ) REMOVE LIDODERM PATCH DAILY@21 XX 07/18/21 21:00 07/19/21 08:35 DC Non-Formulary Medication ( See Comment Field Below ) REMOVE LIDODERM PATCH DAILY@2100 XX 07/29/21 21:00 08/03/21 20:09 Non-Formulary Medication ( See Comment Field Below ) SEE COMMENTS SECTION 1T@10 XX 08/05/21 10:00 08/06/21 09:59 UNV Non-Formulary Medication ( See Comment Field Below ) SEE LABEL COMMENTS DAILY XX 08/03/21 09:00 Polyethylene Glycol (Miralax) 1 pkt DAILYPRN PRN PO CONSTIPATION 08/01/21 11:05 Pregabalin (Lyrica) 100 mg BID PO 07/11/21 09:00 07/11/21 16:30 DC 07/11/21 08:05 Pregabalin (Lyrica) 100 mg BID PO 07/11/21 21:00 08/02/21 16:11 DC 08/02/21 10:56 Pregabalin (Lyrica) 100 mg TID PO 08/02/21 16:00 08/04/21 08:53 Psyllium Hydrophilic Mucilloid (Metamucil) 1 pkt DAILY PO 07/11/21 09:00 07/11/21 16:31 DC 07/11/21 09:01 Psyllium Hydrophilic Mucilloid (Metamucil) 1 pkt DAILY PO 07/12/21 09:00 07/13/21 09:20 DC Senna/Docusate Sodium (Senokot S) 2 tab BIDP PRN PO CONSTIPATION 08/01/21 11:05 Sertraline HCl (Zoloft) 200 mg DAILY PO 07/11/21 09:00 07/11/21 16:34 DC 07/11/21 08:06 Sertraline HCl (Zoloft) 200 mg DAILY PO 07/12/21 09:00 08/04/21 08:53 Tramadol HCl (Ultram) 50 mg Q6HP PRN PO MODERATE PAIN (PS 5-7) 07/18/21 16:25 08/01/21 11:04 DC 08/01/21 05:47 Trazodone HCl (Desyrel) 50 mg QHS PO 07/11/21 21:00 08/01/21 11:04 DC 07/31/21 21:09 Trazodone HCl (Desyrel) 50 mg QHS PO 07/11/21 21:00 07/11/21 13:57 DC Trazodone HCl (Desyrel) 50 mg QHSP PRN PO INSOMNIA 07/11/21 13:45 07/11/21 16:35 DC Trihexyphenidyl HCl (Artane) 2 mg QHS PO 07/11/21 21:00 07/11/21 16:32 DC Trihexyphenidyl HCl (Artane) 2 mg QHS PO 07/11/21 21:00 07/12/21 16:27 DC 07/12/21 01:06 Vitamin D (Vitamin D) 2,000 units DAILY PO 07/11/21 09:00 07/11/21 16:35 DC 07/11/21 08:05 Vitamin D (Vitamin D) 2,000 units DAILY PO 07/12/21 09:00 08/04/21 08:53 Vitamin E (Vitamin E) 400 units DAILY PO 07/11/21 09:00 07/11/21 16:35 DC 07/11/21 09:01 Vitamin E (Vitamin E) 400 units DAILY PO 07/12/21 09:00 08/04/21 08:53 Allergies Coded Allergies: Penicillins (Verified Allergy, Unknown, rash/hives, 05/21/20) Sulfa (Sulfonamide Antibiotics) (Verified Allergy, Unknown, n/v, 05/21/20) "I get deathly ill, I feel like I'm dying." fluoxetine (Verified Allergy, Unknown, SI, 05/21/20) thioridazine (Verified Allergy, Unknown, 05/21/20) valproic acid (Verified Allergy, Unknown, SEDATION, 05/21/20) RAJEEV LOONEY NP Aug 04, 2021 10:55
[2021-08-04] MEDS: LORazepam 1 MG TAB PO PRN (12:00)
[2021-08-04] MEDS: PILL CUTTER 1 EACH XX PRN ×2 (14:36→20:32)
[2021-08-04 16:10] VITALS: BP 126/86
[2021-08-04] MEDS: ATORVASTATIN 10 MG TAB PO SCH (20:29)
[2021-08-04] MEDS: **NOTE PATIENT COMMENT** MISC XX SCH (20:34)
[2021-08-05] MEDS: MORPHINE 30 MG TAB **MSIR PO PRN ×3 (00:36→18:37)
[2021-08-05] MEDS: PILL CUTTER 1 EACH XX PRN ×2 (00:37→10:10)
[2021-08-05] MEDS: LEVOTHYROXINE 25MCG TABLET (0.025MG) PO SCH (05:31)
[2021-08-05 06:11] VITALS: BP 146/88
[2021-08-05] MEDS: LIDOCAINE 5% (LIDODERM) PATCH TD SCH (08:52)
[2021-08-05] MEDS: BENZTROPINE 2 MG TAB PO SCH ×2 (08:53→19:57)
[2021-08-05] MEDS: VITAMIN E 400 INTERNATIONAL UNITS CAP PO SCH (08:53)
[2021-08-05] MEDS: SERTRALINE 100 MG TAB PO SCH (08:53)
[2021-08-05] MEDS: PREGABALIN 100 MG CAP (LYRICA) PO SCH ×3 (08:53→19:57)
[2021-08-05] MEDS: VITAMIN D 1,000 INTERNATIONAL UNITS TABLET PO SCH (08:53)
[2021-08-05] MEDS: FERROUS SULFATE 325MG TAB PO SCH (08:53)
[2021-08-05] MEDS: ASPIRIN 81MG ENTERIC TABLET PO SCH (08:53)
[2021-08-05] MEDS ORDERED: PPD DOCUMENTATION ENTRY MISC XX SCH (10:00)
[2021-08-05] MEDS ORDERED: TUBERCULIN PPD 5 UNITS/0.1 ML ID ONE (13:30)
[2021-08-05 14:07] VITALS: BP 137/75
[2021-08-05 16:25] VITALS: BP 145/65
[2021-08-05] MEDS: MOM 30ML SUSPENSION UDC PO PRN (19:57)
[2021-08-05] MEDS: ATORVASTATIN 10 MG TAB PO SCH (19:57)
[2021-08-05] MEDS: **NOTE PATIENT COMMENT** MISC XX SCH (19:59)
[2021-08-06] MEDS: MORPHINE 30 MG TAB **MSIR PO PRN ×2 (01:13→11:53)
[2021-08-06] MEDS: PILL CUTTER 1 EACH XX PRN (01:14)
[2021-08-06] MEDS: ACETAMINOPHEN TAB 650MG DOSE (2X325MG) PO PRN (03:24)
[2021-08-06] MEDS: LEVOTHYROXINE 25MCG TABLET (0.025MG) PO SCH (05:51)
[2021-08-06 05:57] VITALS: BP 124/72
[2021-08-06] MEDS: LIDOCAINE 5% (LIDODERM) PATCH TD SCH (08:59)
[2021-08-06] MEDS: PREGABALIN 100 MG CAP (LYRICA) PO SCH ×3 (08:59→20:29)
[2021-08-06] MEDS: ASPIRIN 81MG ENTERIC TABLET PO SCH (08:59)
[2021-08-06] MEDS: VITAMIN D 1,000 INTERNATIONAL UNITS TABLET PO SCH (08:59)
[2021-08-06] MEDS: VITAMIN E 400 INTERNATIONAL UNITS CAP PO SCH (08:59)
[2021-08-06] MEDS: FERROUS SULFATE 325MG TAB PO SCH (08:59)
[2021-08-06] MEDS: SERTRALINE 100 MG TAB PO SCH (08:59)
[2021-08-06] MEDS: BENZTROPINE 2 MG TAB PO SCH ×2 (08:59→20:29)
[2021-08-06] MEDS: haloperidoL 5 MG TAB PO PRN (15:02)
[2021-08-06 16:29] VITALS: BP 132/62
[2021-08-06] MEDS: ATORVASTATIN 10 MG TAB PO SCH (20:29)
[2021-08-06] MEDS: **NOTE PATIENT COMMENT** MISC XX SCH (21:00)
[2021-08-07] MEDS: MORPHINE 30 MG TAB **MSIR PO PRN ×2 (03:00→11:34)
[2021-08-07] MEDS: LEVOTHYROXINE 25MCG TABLET (0.025MG) PO SCH (06:40)
[2021-08-07 07:05] VITALS: BP 144/86
[2021-08-07 08:28] VITALS: BP 144/86
[2021-08-07] MEDS: SERTRALINE 100 MG TAB PO SCH (08:54)
[2021-08-07] MEDS: ASPIRIN 81MG ENTERIC TABLET PO SCH (08:54)
[2021-08-07] MEDS: PREGABALIN 100 MG CAP (LYRICA) PO SCH ×3 (08:54→21:00)
[2021-08-07] MEDS: VITAMIN E 400 INTERNATIONAL UNITS CAP PO SCH (08:55)
[2021-08-07] MEDS: VITAMIN D 1,000 INTERNATIONAL UNITS TABLET PO SCH (08:55)
[2021-08-07] MEDS: FERROUS SULFATE 325MG TAB PO SCH (08:56)
[2021-08-07] MEDS: BENZTROPINE 2 MG TAB PO SCH ×2 (08:56→21:00)
[2021-08-07] MEDS: ACETAMINOPHEN TAB 650MG DOSE (2X325MG) PO PRN (09:12)
[2021-08-07] MEDS: LIDOCAINE 5% (LIDODERM) PATCH TD SCH (10:10)
--- NOTE | 2021-08-07 11:24 | MHIPNPDOC ---
[facility] Progress Note Progress Note DATE OF SERVICE: 08/07/21 HISTORY: Patient is a 61 -year-old Single, Disabled, Domiciled, , female, who initially came to the ED with medical complaints of back and leg pain. When she was interviewed by EMS and the ER MD she made suicidal statements that she was planning to jump from a bridge or cut wrist. VITAL SIGNS: See below. NEW TEST RESULTS: None CURRENT MEDICATIONS: See below. MENTAL STATUS EXAMINATION: CURRENT MEDICATIONS: See below. MENTAL STATUS EXAMINATION: Patient is a 61-year old female, who appears her stated age, long hair, intense stare, sitting upright on her bed, in hospital clothing, unkempt, hygiene and grooming is fair Speech: Is slowed, and refusing to engage in 1:1 Language skills are fair Thought processes including:incoherent today Thought content: will not engage in interview but appears dysphoric and anxiety, psychotic symptoms. Abstract reasoning, and computation: Poor. Description of associations: Poor Description of abnormal or psychotic thoughts: Appears paranoid, reports auditory hallucinations, has been observed responding to internal stimuli Judgment: poor Insight: poor Orientation: To place and person. Recent and remote memory: fair Attention span and concentration: poor Language: Finnish. Fund of knowledge: Below average, based on interview. Mood: appears depressed, observed dysphoric Remains dysphoric/apathetic DIAGNOSES: Schizophrenia bipolar type Cannabis use disorder ASSESSMENT: Patient found in her room crying. States "They cut my legs." Patient is quite paranoid today, attempted to have a meaningful interview and she states "I don't want to talk to you - I can't talk to you about it." Patient is having auditory hallucinations, refused to speak about Haldol Decanoate. She remains moderately psychotic and is compliant with medications. She is observed paranoid, dysphoric with flat affect. At present would recommend continued hospitalization for stabilization and safety purposes and transfer to [facility] when bed is available. Encouraged her to consider increase in Haldol but she refuses medication changes. Symptom are so tenuous that immediate rehospitalization is highly likely if patient discharged. Severe impairment in insight/judgment. Patient is unable to make unsafe decisions related to day to day living. MANAGEMENT PLAN: Continue medications. Patient is compliant with medications. Transfer to [facility]. Time Spent: 10 minutes Vital Signs Vital Signs Date Time Temp Pulse Resp B/P (MAP) Pulse Ox O2 Delivery O2 Flow Rate FiO2 08/07/21 08:55 70 144/86 08/07/21 08:28 97.1 16 97 Room Air Current Medications Current Medications Medications (Trade) Dose Ordered Sig/Floyd Route PRN Reason Start Time Stop Time Status Last Admin Dose Admin Acetaminophen (Tylenol Tab) 650 mg Q6HP PRN PO HEADACHE or MILD DISCOMFORT 07/11/21 13:45 08/07/21 09:12 Al Hydrox/Mg Hydrox/Simethicone (Mylanta) 30 ml Q4HP PRN PO HEARTBURN/INDIGESTION 07/11/21 13:45 Amlodipine Besylate (Norvasc) 5 mg DAILY PO 07/15/21 09:00 07/18/21 13:45 DC 07/18/21 08:53 Amlodipine Besylate (Norvasc) 10 mg DAILY PO 07/19/21 09:00 08/07/21 08:55 Aspirin (Aspirin Chewable) 81 mg DAILY PO 07/11/21 09:00 07/11/21 16:20 DC 07/11/21 08:05 Aspirin (Ecotrin) 81 mg DAILY PO 07/12/21 09:00 08/07/21 08:54 Atorvastatin Calcium (Lipitor) 10 mg QHS PO 07/11/21 21:00 07/11/21 16:20 DC Atorvastatin Calcium (Lipitor) 10 mg QHS PO 07/11/21 21:00 08/06/21 20:29 Benztropine Mesylate (Cogentin) 2 mg BID PO 07/12/21 21:00 08/07/21 08:56 Diphenhydramine HCl (Benadryl) 50 mg STAT STAT IM 07/20/21 12:43 07/20/21 12:44 DC 07/20/21 12:57 Docusate Sodium (Colace) 100 mg DAILY PO 07/11/21 09:00 07/11/21 16:21 DC 07/11/21 08:05 Docusate Sodium (Colace) 100 mg DAILY PO 07/12/21 09:00 07/13/21 09:20 DC 07/12/21 09:15 Docusate Sodium (Colace) 100 mg Q12HP PRN PO CONSTIPATION 07/15/21 10:25 07/23/21 10:13 Ferrous Sulfate (Ferrous Sulfate) 325 mg DAILY PO 07/11/21 09:00 07/11/21 16:22 DC 07/11/21 08:05 Ferrous Sulfate (Ferrous Sulfate) 325 mg DAILY PO 07/12/21 09:00 08/07/21 08:56 Haloperidol (Haldol) 5 mg BID PO 07/11/21 09:00 07/11/21 16:23 DC 07/11/21 08:05 Haloperidol (Haldol) 5 mg BID PO 07/11/21 21:00 07/12/21 16:20 DC 07/12/21 09:16 Haloperidol (Haldol) 5 mg Q4HP PRN PO AGITATION 07/12/21 16:15 08/06/21 15:02 Haloperidol (Haldol) 5 mg STAT STAT IM 07/20/21 12:43 07/20/21 12:44 DC 07/20/21 12:56 Haloperidol (Haldol) 10 mg BID PO 07/30/21 21:00 08/07/21 08:56 Haloperidol (Haldol) 10 mg BID PO 07/12/21 21:00 07/30/21 17:46 DC 07/29/21 21:06 Home Med (Home Med List Complete!) ASDIRECTED XX 07/09/21 17:45 07/09/21 17:46 DC Levofloxacin (Levaquin) 750 mg Q48H PO 07/17/21 18:00 07/23/21 18:01 DC 07/21/21 17:41 Levothyroxine Sodium (Synthroid) 25 mcg DAILY@06 PO 07/11/21 06:00 07/11/21 16:24 DC Levothyroxine Sodium (Synthroid) 25 mcg DAILY@0600 PO 07/12/21 06:00 08/07/21 06:40 Lidocaine (Lidoderm Patch) 2 patch DAILY TD 07/18/21 17:00 07/29/21 08:58 DC 07/28/21 09:05 Lidocaine (Lidoderm Patch) 2 patch DAILY TD 07/30/21 09:00 08/07/21 10:10 Lisinopril (Prinivil) 5 mg DAILY PO 07/11/21 09:00 07/11/21 16:25 DC 07/11/21 08:05 Lisinopril (Prinivil) 5 mg DAILY PO 07/12/21 09:00 07/15/21 10:26 DC 07/15/21 08:47 Loperamide HCl (Imodium) 2 mg DAILY PO 07/11/21 09:00 07/13/21 09:20 DC 07/12/21 09:16 Lorazepam (Ativan) 0.25 mg BID PRN PO anxiety 07/11/21 15:10 Cancel Lorazepam (Ativan) 0.5 mg STAT STAT PO 07/11/21 09:53 07/11/21 09:54 DC 07/11/21 09:58 Lorazepam (Ativan) 1 mg Q6HP PRN PO ANXIETY 07/18/21 12:00 08/04/21 12:00 Lorazepam (Ativan) 2 mg Q4HP PRN PO ANXIETY/AGITATION 07/12/21 16:15 07/18/21 11:59 DC 07/16/21 04:51 Lorazepam (Ativan) 2 mg STAT STAT IM 07/20/21 12:43 07/20/21 12:44 DC 07/20/21 12:56 Magnesium Hydroxide (Milk Of Magnesia) 30 ml DAILYPRN PRN PO CONSTIPATION 07/11/21 13:45 08/01/21 11:06 DC 07/30/21 07:57 Magnesium Hydroxide (Milk Of Magnesia) 30 ml Q4HP PRN PO CONSTIPATION 08/01/21 11:05 08/05/21 19:57 Meloxicam (Mobic) 15 mg DAILY PO 07/11/21 09:00 07/11/21 16:29 DC 07/11/21 08:06 Meloxicam (Mobic) 15 mg DAILY PO 07/12/21 09:00 07/18/21 13:38 DC 07/18/21 08:53 Miscellaneous (Unresolved Clarification Entry) SEE LABEL COMMENTS DAILY XX 07/17/21 09:00 07/18/21 11:17 DC Miscellaneous (Unresolved Clarification Entry) SEE LABEL COMMENTS DAILY XX 07/21/21 09:00 07/24/21 11:18 DC Miscellaneous (Unresolved Clarification Entry) SEE LABEL COMMENTS DAILY XX 07/24/21 09:00 07/25/21 08:22 DC Miscellaneous (Unresolved Clarification Entry) SEE LABEL COMMENTS DAILY XX 07/25/21 09:00 07/25/21 10:26 DC Morphine Sulfate (Ms Contin) 15 mg BID PO 08/01/21 21:00 08/02/21 16:12 DC 08/02/21 10:57 Morphine Sulfate (Msir) 15 mg Q4HP PRN PO SEVERE PAIN (PS 8-10) 08/01/21 17:00 08/07/21 03:00 Naloxone HCl (Narcan) 0.1 mg Q5MP PRN IV RESP. RATE < 10 08/01/21 11:05 08/02/21 07:57 DC Nicotine (Nicoderm Cq 21mg) 1 patch DAILYPRN PRN TD NICOTINE WITHDRAWAL 07/11/21 13:45 Non-Formulary Medication ( See Comment Field Below ) REMOVE LIDODERM PATCH DAILY@0500 XX 07/19/21 05:00 07/29/21 08:58 DC 07/29/21 05:00 Non-Formulary Medication ( See Comment Field Below ) REMOVE LIDODERM PATCH DAILY@21 XX 07/18/21 21:00 07/19/21 08:35 DC Non-Formulary Medication ( See Comment Field Below ) REMOVE LIDODERM PATCH DAILY@2100 XX 07/29/21 21:00 08/06/21 21:00 Non-Formulary Medication ( See Comment Field Below ) SEE COMMENTS SECTION 1T@10 XX 08/05/21 10:00 08/06/21 09:59 UNV Non-Formulary Medication ( See Comment Field Below ) SEE LABEL COMMENTS DAILY XX 08/03/21 09:00 08/05/21 13:25 DC Polyethylene Glycol (Miralax) 1 pkt DAILYPRN PRN PO CONSTIPATION 08/01/21 11:05 Pregabalin (Lyrica) 100 mg BID PO 07/11/21 09:00 07/11/21 16:30 DC 07/11/21 08:05 Pregabalin (Lyrica) 100 mg BID PO 07/11/21 21:00 08/02/21 16:11 DC 08/02/21 10:56 Pregabalin (Lyrica) 100 mg TID PO 08/02/21 16:00 08/07/21 08:54 Psyllium Hydrophilic Mucilloid (Metamucil) 1 pkt DAILY PO 07/11/21 09:00 07/11/21 16:31 DC 07/11/21 09:01 Psyllium Hydrophilic Mucilloid (Metamucil) 1 pkt DAILY PO 07/12/21 09:00 07/13/21 09:20 DC Senna/Docusate Sodium (Senokot S) 2 tab BIDP PRN PO CONSTIPATION 08/01/21 11:05 Sertraline HCl (Zoloft) 200 mg DAILY PO 07/11/21 09:00 07/11/21 16:34 DC 07/11/21 08:06 Sertraline HCl (Zoloft) 200 mg DAILY PO 07/12/21 09:00 08/07/21 08:54 Tramadol HCl (Ultram) 50 mg Q6HP PRN PO MODERATE PAIN (PS 5-7) 07/18/21 16:25 08/01/21 11:04 DC 08/01/21 05:47 Trazodone HCl (Desyrel) 50 mg QHS PO 07/11/21 21:00 08/01/21 11:04 DC 07/31/21 21:09 Trazodone HCl (Desyrel) 50 mg QHS PO 07/11/21 21:00 07/11/21 13:57 DC Trazodone HCl (Desyrel) 50 mg QHSP PRN PO INSOMNIA 07/11/21 13:45 07/11/21 16:35 DC Trihexyphenidyl HCl (Artane) 2 mg QHS PO 07/11/21 21:00 07/11/21 16:32 DC Trihexyphenidyl HCl (Artane) 2 mg QHS PO 07/11/21 21:00 07/12/21 16:27 DC 07/12/21 01:06 Vitamin D (Vitamin D) 2,000 units DAILY PO 07/11/21 09:00 07/11/21 16:35 DC 07/11/21 08:05 Vitamin D (Vitamin D) 2,000 units DAILY PO 07/12/21 09:00 08/07/21 08:55 Vitamin E (Vitamin E) 400 units DAILY PO 07/11/21 09:00 07/11/21 16:35 DC 07/11/21 09:01 Vitamin E (Vitamin E) 400 units DAILY PO 07/12/21 09:00 08/07/21 08:55 Allergies Coded Allergies: Penicillins (Verified Allergy, Unknown, rash/hives, 05/21/20) Sulfa (Sulfonamide Antibiotics) (Verified Allergy, Unknown, n/v, 05/21/20) "I get deathly ill, I feel like I'm dying." fluoxetine (Verified Allergy, Unknown, SI, 05/21/20) thioridazine (Verified Allergy, Unknown, 05/21/20) valproic acid (Verified Allergy, Unknown, SEDATION, 05/21/20) RAJEEV LOONEY NP Aug 07, 2021 11:24
[2021-08-07] MEDS: PILL CUTTER 1 EACH XX PRN (11:32)
[2021-08-07] MEDS ORDERED: PPD DOCUMENTATION ENTRY MISC XX ONE (13:30)
[2021-08-07 17:37] VITALS: BP 129/60
[2021-08-07] MEDS: ATORVASTATIN 10 MG TAB PO SCH (21:00)
[2021-08-07] MEDS: **NOTE PATIENT COMMENT** MISC XX SCH (21:00)
[2021-08-08] MEDS: MORPHINE 30 MG TAB **MSIR PO PRN (03:46)
[2021-08-08] MEDS: ACETAMINOPHEN TAB 650MG DOSE (2X325MG) PO PRN ×2 (03:47→14:10)
[2021-08-08] MEDS: LEVOTHYROXINE 25MCG TABLET (0.025MG) PO SCH (06:00)
[2021-08-08 08:02] VITALS: BP 112/62
[2021-08-08] MEDS: LIDOCAINE 5% (LIDODERM) PATCH TD SCH (08:09)
[2021-08-08] MEDS: PREGABALIN 100 MG CAP (LYRICA) PO SCH ×3 (08:10→21:47)
[2021-08-08] MEDS: SERTRALINE 100 MG TAB PO SCH (08:10)
[2021-08-08] MEDS: BENZTROPINE 2 MG TAB PO SCH ×2 (08:10→21:47)
[2021-08-08] MEDS: FERROUS SULFATE 325MG TAB PO SCH (08:10)
[2021-08-08] MEDS: ASPIRIN 81MG ENTERIC TABLET PO SCH (08:10)
[2021-08-08] MEDS: VITAMIN E 400 INTERNATIONAL UNITS CAP PO SCH (08:10)
[2021-08-08] MEDS: VITAMIN D 1,000 INTERNATIONAL UNITS TABLET PO SCH (08:10)
--- NOTE | 2021-08-08 11:49 | MHIPNPDOC ---
[facility] Progress Note Progress Note DATE OF SERVICE: 08/08/21 HISTORY: Patient is a 61 -year-old Single, Disabled, Domiciled, , female, who initially came to the ED with medical complaints of back and leg pain. When she was interviewed by EMS and the ER MD she made suicidal statements that she was planning to jump from a bridge or cut wrist. VITAL SIGNS: See below. NEW TEST RESULTS: None CURRENT MEDICATIONS: See below. MENTAL STATUS EXAMINATION: CURRENT MEDICATIONS: See below. MENTAL STATUS EXAMINATION: Patient is a 61-year old female, who appears her stated age, long hair, intense stare, sitting upright in day room, in hospital clothing, unkempt, hygiene and grooming is fair Speech: Is slowed, and normal rate tone and volume, minimal responses Language skills are fair Thought processes including: coherent today Thought content: will not engage in interview but appears dysphoric and anxiety, paranoid Abstract reasoning, and computation: Poor. Description of associations: Poor Description of abnormal or psychotic thoughts: Appears paranoid, reports auditory hallucinations Judgment: poor Insight: poor Orientation: To place and person. Recent and remote memory: fair Attention span and concentration: poor Language: Malawian. Fund of knowledge: Below average, based on interview. Mood: appears depressed, observed dysphoric Remains dysphoric/apathetic DIAGNOSES: Schizophrenia bipolar type Cannabis use disorder ASSESSMENT: Patient is in the day room this morning. I approached her and she initially reported leg pain. Patient refused to meet in interview, states "Leave me alone! I don't want to talk to you." Patient refused to meet again later in her room. According to staff she makes bizarre statements and is observed paranoid, responding to internal stimuli. She reports moderate depression and mild anxiety, reports auditory hallucinations. She is observed needing encouragement to care for herself. She is taking medications, however refuses to discuss IM injections. In the brief interview, attempted to review treatment plan with patient. She states that she will not go to [facility], as she believes it is closed. She shows impaired insight and judgment and is observed with inability to make safe decisions to care for herself independently in the community. She at times during the day is mildly to moderately psychotic and her continued hospitalization is warranted as her symptoms are tenuous that if she were discharged, she would be admitted in a short period of time. MANAGEMENT PLAN: Continue medications. Patient is compliant with medications. Transfer to [facility] [place]. Time Spent: 15 minutes Vital Signs Vital Signs Date Time Temp Pulse Resp B/P (MAP) Pulse Ox O2 Delivery O2 Flow Rate FiO2 08/08/21 10:35 86 114/70 08/08/21 05:56 18 08/07/21 17:37 99.0 08/07/21 08:28 97 Room Air Current Medications Current Medications Medications (Trade) Dose Ordered Sig/Floyd Route PRN Reason Start Time Stop Time Status Last Admin Dose Admin Acetaminophen (Tylenol Tab) 650 mg Q6HP PRN PO HEADACHE or MILD DISCOMFORT 07/11/21 13:45 08/08/21 03:47 Al Hydrox/Mg Hydrox/Simethicone (Mylanta) 30 ml Q4HP PRN PO HEARTBURN/INDIGESTION 07/11/21 13:45 Amlodipine Besylate (Norvasc) 5 mg DAILY PO 07/15/21 09:00 07/18/21 13:45 DC 07/18/21 08:53 Amlodipine Besylate (Norvasc) 10 mg DAILY PO 07/19/21 09:00 08/08/21 10:35 Aspirin (Aspirin Chewable) 81 mg DAILY PO 07/11/21 09:00 07/11/21 16:20 DC 07/11/21 08:05 Aspirin (Ecotrin) 81 mg DAILY PO 07/12/21 09:00 08/08/21 08:10 Atorvastatin Calcium (Lipitor) 10 mg QHS PO 07/11/21 21:00 07/11/21 16:20 DC Atorvastatin Calcium (Lipitor) 10 mg QHS PO 07/11/21 21:00 08/06/21 20:29 Benztropine Mesylate (Cogentin) 2 mg BID PO 07/12/21 21:00 08/08/21 08:10 Diphenhydramine HCl (Benadryl) 50 mg STAT STAT IM 07/20/21 12:43 07/20/21 12:44 DC 07/20/21 12:57 Docusate Sodium (Colace) 100 mg DAILY PO 07/11/21 09:00 07/11/21 16:21 DC 07/11/21 08:05 Docusate Sodium (Colace) 100 mg DAILY PO 07/12/21 09:00 07/13/21 09:20 DC 07/12/21 09:15 Docusate Sodium (Colace) 100 mg Q12HP PRN PO CONSTIPATION 07/15/21 10:25 07/23/21 10:13 Ferrous Sulfate (Ferrous Sulfate) 325 mg DAILY PO 07/11/21 09:00 07/11/21 16:22 DC 07/11/21 08:05 Ferrous Sulfate (Ferrous Sulfate) 325 mg DAILY PO 07/12/21 09:00 08/08/21 08:10 Haloperidol (Haldol) 5 mg BID PO 07/11/21 09:00 07/11/21 16:23 DC 07/11/21 08:05 Haloperidol (Haldol) 5 mg BID PO 07/11/21 21:00 07/12/21 16:20 DC 07/12/21 09:16 Haloperidol (Haldol) 5 mg Q4HP PRN PO AGITATION 07/12/21 16:15 08/06/21 15:02 Haloperidol (Haldol) 5 mg STAT STAT IM 07/20/21 12:43 07/20/21 12:44 DC 07/20/21 12:56 Haloperidol (Haldol) 10 mg BID PO 07/30/21 21:00 08/08/21 08:10 Haloperidol (Haldol) 10 mg BID PO 07/12/21 21:00 07/30/21 17:46 DC 07/29/21 21:06 Home Med (Home Med List Complete!) ASDIRECTED XX 07/09/21 17:45 07/09/21 17:46 DC Levofloxacin (Levaquin) 750 mg Q48H PO 07/17/21 18:00 07/23/21 18:01 DC 07/21/21 17:41 Levothyroxine Sodium (Synthroid) 25 mcg DAILY@06 PO 07/11/21 06:00 07/11/21 16:24 DC Levothyroxine Sodium (Synthroid) 25 mcg DAILY@0600 PO 07/12/21 06:00 08/07/21 06:40 Lidocaine (Lidoderm Patch) 2 patch DAILY TD 07/18/21 17:00 07/29/21 08:58 DC 07/28/21 09:05 Lidocaine (Lidoderm Patch) 2 patch DAILY TD 07/30/21 09:00 08/08/21 08:09 Lisinopril (Prinivil) 5 mg DAILY PO 07/11/21 09:00 07/11/21 16:25 DC 07/11/21 08:05 Lisinopril (Prinivil) 5 mg DAILY PO 07/12/21 09:00 07/15/21 10:26 DC 07/15/21 08:47 Loperamide HCl (Imodium) 2 mg DAILY PO 07/11/21 09:00 07/13/21 09:20 DC 07/12/21 09:16 Lorazepam (Ativan) 0.25 mg BID PRN PO anxiety 07/11/21 15:10 Cancel Lorazepam (Ativan) 0.5 mg STAT STAT PO 07/11/21 09:53 07/11/21 09:54 DC 07/11/21 09:58 Lorazepam (Ativan) 1 mg Q6HP PRN PO ANXIETY 07/18/21 12:00 08/04/21 12:00 Lorazepam (Ativan) 2 mg Q4HP PRN PO ANXIETY/AGITATION 07/12/21 16:15 07/18/21 11:59 DC 07/16/21 04:51 Lorazepam (Ativan) 2 mg STAT STAT IM 07/20/21 12:43 07/20/21 12:44 DC 07/20/21 12:56 Magnesium Hydroxide (Milk Of Magnesia) 30 ml DAILYPRN PRN PO CONSTIPATION 07/11/21 13:45 08/01/21 11:06 DC 07/30/21 07:57 Magnesium Hydroxide (Milk Of Magnesia) 30 ml Q4HP PRN PO CONSTIPATION 08/01/21 11:05 08/05/21 19:57 Meloxicam (Mobic) 15 mg DAILY PO 07/11/21 09:00 07/11/21 16:29 DC 07/11/21 08:06 Meloxicam (Mobic) 15 mg DAILY PO 07/12/21 09:00 07/18/21 13:38 DC 07/18/21 08:53 Miscellaneous (Unresolved Clarification Entry) SEE LABEL COMMENTS DAILY XX 07/17/21 09:00 07/18/21 11:17 DC Miscellaneous (Unresolved Clarification Entry) SEE LABEL COMMENTS DAILY XX 07/21/21 09:00 07/24/21 11:18 DC Miscellaneous (Unresolved Clarification Entry) SEE LABEL COMMENTS DAILY XX 07/24/21 09:00 07/25/21 08:22 DC Miscellaneous (Unresolved Clarification Entry) SEE LABEL COMMENTS DAILY XX 07/25/21 09:00 07/25/21 10:26 DC Morphine Sulfate (Ms Contin) 15 mg BID PO 08/01/21 21:00 08/02/21 16:12 DC 08/02/21 10:57 Morphine Sulfate (Msir) 15 mg Q4HP PRN PO SEVERE PAIN (PS 8-10) 08/01/21 17:00 08/08/21 03:46 Naloxone HCl (Narcan) 0.1 mg Q5MP PRN IV RESP. RATE < 10 08/01/21 11:05 08/02/21 07:57 DC Nicotine (Nicoderm Cq 21mg) 1 patch DAILYPRN PRN TD NICOTINE WITHDRAWAL 07/11/21 13:45 Non-Formulary Medication ( See Comment Field Below ) REMOVE LIDODERM PATCH DAILY@0500 XX 07/19/21 05:00 07/29/21 08:58 DC 07/29/21 05:00 Non-Formulary Medication ( See Comment Field Below ) REMOVE LIDODERM PATCH DAILY@21 XX 07/18/21 21:00 07/19/21 08:35 DC Non-Formulary Medication ( See Comment Field Below ) REMOVE LIDODERM PATCH DAILY@2100 XX 07/29/21 21:00 08/07/21 21:00 Non-Formulary Medication ( See Comment Field Below ) SEE COMMENTS SECTION 1T@10 XX 08/05/21 10:00 08/06/21 09:59 UNV Non-Formulary Medication ( See Comment Field Below ) SEE LABEL COMMENTS DAILY XX 08/03/21 09:00 08/05/21 13:25 DC Polyethylene Glycol (Miralax) 1 pkt DAILYPRN PRN PO CONSTIPATION 08/01/21 11:05 Pregabalin (Lyrica) 100 mg BID PO 07/11/21 09:00 07/11/21 16:30 DC 07/11/21 08:05 Pregabalin (Lyrica) 100 mg BID PO 07/11/21 21:00 08/02/21 16:11 DC 08/02/21 10:56 Pregabalin (Lyrica) 100 mg TID PO 08/02/21 16:00 10/5/21 08:10 Psyllium Hydrophilic Mucilloid (Metamucil) 1 pkt DAILY PO 07/11/21 09:00 07/11/21 16:31 DC 07/11/21 09:01 Psyllium Hydrophilic Mucilloid (Metamucil) 1 pkt DAILY PO 07/12/21 09:00 07/13/21 09:20 DC Senna/Docusate Sodium (Senokot S) 2 tab BIDP PRN PO CONSTIPATION 08/01/21 11:05 Sertraline HCl (Zoloft) 200 mg DAILY PO 07/11/21 09:00 07/11/21 16:34 DC 07/11/21 08:06 Sertraline HCl (Zoloft) 200 mg DAILY PO 07/12/21 09:00 08/08/21 08:10 Tramadol HCl (Ultram) 50 mg Q6HP PRN PO MODERATE PAIN (PS 5-7) 07/18/21 16:25 08/01/21 11:04 DC 08/01/21 05:47 Trazodone HCl (Desyrel) 50 mg QHS PO 07/11/21 21:00 08/01/21 11:04 DC 07/31/21 21:09 Trazodone HCl (Desyrel) 50 mg QHS PO 07/11/21 21:00 07/11/21 13:57 DC Trazodone HCl (Desyrel) 50 mg QHSP PRN PO INSOMNIA 07/11/21 13:45 07/11/21 16:35 DC Trihexyphenidyl HCl (Artane) 2 mg QHS PO 07/11/21 21:00 07/11/21 16:32 DC Trihexyphenidyl HCl (Artane) 2 mg QHS PO 07/11/21 21:00 07/12/21 16:27 DC 07/12/21 01:06 Vitamin D (Vitamin D) 2,000 units DAILY PO 07/11/21 09:00 07/11/21 16:35 DC 07/11/21 08:05 Vitamin D (Vitamin D) 2,000 units DAILY PO 07/12/21 09:00 08/08/21 08:10 Vitamin E (Vitamin E) 400 units DAILY PO 07/11/21 09:00 07/11/21 16:35 DC 07/11/21 09:01 Vitamin E (Vitamin E) 400 units DAILY PO 07/12/21 09:00 08/08/21 08:10 Allergies Coded Allergies: Penicillins (Verified Allergy, Unknown, rash/hives, 05/21/20) Sulfa (Sulfonamide Antibiotics) (Verified Allergy, Unknown, n/v, 05/21/20) "I get deathly ill, I feel like I'm dying." fluoxetine (Verified Allergy, Unknown, SI, 05/21/20) thioridazine (Verified Allergy, Unknown, 05/21/20) valproic acid (Verified Allergy, Unknown, SEDATION, 05/21/20) RAJEEV LOONEY NP Aug 08, 2021 11:49
[2021-08-08 19:19] VITALS: BP 133/70
[2021-08-08] MEDS: **NOTE PATIENT COMMENT** MISC XX SCH (21:00)
[2021-08-08 21:40] VITALS: BP 240/128
[2021-08-08] MEDS: ATORVASTATIN 10 MG TAB PO SCH (21:47)
[2021-08-08 21:55] VITALS: BP 135/90
[2021-08-08] MEDS: MOM 30ML SUSPENSION UDC PO PRN (22:04)
--- NOTE | 2021-08-08 22:18 | IPNPDOC ---
Text Note Date of Service The patient was seen on 08/08/21. NOTE Significant event-patient with witnessed fall Vital signs at time of fall T 99.5, blood pressure 240/128, heart rate 122, SPO2 on room air 96% with respiration rate 20 patient assisted back in bed and vitals retaken as she was calmer. Blood pressure 135/90, heart rate 118, 96% saturation on room air. Patient with reported urgency to go to the bathroom status post treatment for constipation with milk of magnesia. Patient has known history of back and leg pain and has some instability with quick movements reportedly. Uses seated walker at baseline. RN reports patient "panicking" and when assisting to bathroom she fell. Did not lose consciousness, did have notable lip blistering; patient denied hitting head. Patient denies any precursory symptoms denies dizz iness. She does report increased leg pain bilateral thigh and left calf. She does have superficial bruising on the thighs and has had this type of pain recently including some neuropathic type pain. Patient does have left elbow scrape but this appears old. No range of motion limitations. We will check electrolytes and EKG. Neurochecks x24 hours patient has as needed medications for pain. Consider further interventions accordingly. VS,Fishbone, I+O VS, Fishbone, I+O Vital Signs Date Time Temp Pulse Resp B/P (MAP) Pulse Ox O2 Delivery O2 Flow Rate FiO2 08/08/21 19:19 98.8 83 18 133/70 (91) 08/08/21 10:00 Room Air 08/07/21 08:28 97 BARRINGTON SHERIDAN NP Aug 08, 2021 22:16
[2021-08-08 23:15] LABS: BASO % 0.1 % (0.0-1.0); HEMATOCRIT 37.2 % (36.0-47.0); HEMOGLOBIN 11.8 g/dl (12.0-15.5); LYMPH % 26.8 % (24.0-44.0); MEAN CORPUSCULAR HEMOGLOBIN 27.7 pg (27.0-33.0); MEAN CORPUSCULAR HGB CONC 31.7 g/dl (32.0-36.5); MEAN CORPUSCULAR VOLUME 87.3 fl (80.0-96.0); MONO # 0.8 10^3/uL (0.0-0.8); MONO % 10.8 % (2.0-8.0); NEUTROPHILS # 4.7 10^3/uL (1.5-8.5); NEUTROPHILS % 61.8 % (36.0-66.0); PLATELET COUNT, AUTOMATED 297 10^3/uL (150-450); RED BLOOD COUNT 4.26 10^6/uL (4.00-5.40); WHITE BLOOD COUNT 7.6 10^3/uL (4.0-10.0)
[2021-08-08 23:24] LABS: BLOOD UREA NITROGEN 23 MG/DL (7-18); CALCIUM LEVEL 9.5 MG/DL (8.8-10.2); CARBON DIOXIDE LEVEL 30 MEQ/L (21-32); CHLORIDE LEVEL 102 MEQ/L (98-107); CPK CREATINE PHOSPHOKINASE 63 U/L (26-192); GLOMERULAR FILTRATION RATE > 60.0 (>45); GLUCOSE, FASTING 115 MG/DL (70-100); MAGNESIUM LEVEL 1.9 MG/DL (1.8-2.4); POTASSIUM SERUM 4.1 MEQ/L (3.5-5.1); SODIUM LEVEL 136 MEQ/L (136-145)
[2021-08-09] MEDS: LEVOTHYROXINE 25MCG TABLET (0.025MG) PO SCH (07:17)
[2021-08-09] MEDS: BENZTROPINE 2 MG TAB PO SCH ×2 (09:43→20:16)
[2021-08-09] MEDS: VITAMIN D 1,000 INTERNATIONAL UNITS TABLET PO SCH (09:43)
[2021-08-09] MEDS: LIDOCAINE 5% (LIDODERM) PATCH TD SCH (09:43)
[2021-08-09] MEDS: VITAMIN E 400 INTERNATIONAL UNITS CAP PO SCH (09:44)
[2021-08-09] MEDS: FERROUS SULFATE 325MG TAB PO SCH (09:44)
[2021-08-09] MEDS: PREGABALIN 100 MG CAP (LYRICA) PO SCH ×3 (09:44→20:16)
[2021-08-09] MEDS: ASPIRIN 81MG ENTERIC TABLET PO SCH (09:44)
[2021-08-09] MEDS: SERTRALINE 100 MG TAB PO SCH (09:45)
[2021-08-09] MEDS: traMADol 50 MG TAB PO PRN ×2 (13:08→20:57)
--- NOTE | 2021-08-09 14:05 | ECGEPIP ---
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 Electronically Signed on 08-09-2021 14:05:20 EDT by Louis Muñoz
[2021-08-09] MEDS: LevoFLOXacin 500 MG TABLET PO SCH (14:22)
--- NOTE | 2021-08-09 14:42 | MHIPNPDOC ---
[facility] Progress Note Progress Note DATE OF SERVICE: 08/09/21 HISTORY: Patient is a 61 -year-old Single, Disabled, Domiciled, , female, who initially came to the ED with medical complaints of back and leg pain. When she was interviewed by EMS and the ER MD she made suicidal statements that she was planning to jump from a bridge or cut wrist. VITAL SIGNS: See below. NEW TEST RESULTS: None CURRENT MEDICATIONS: See below. MENTAL STATUS EXAMINATION: CURRENT MEDICATIONS: See below. MENTAL STATUS EXAMINATION: Patient is a 61-year old female, who appears her stated age, long hair, unkempt, hygiene and grooming is fair Speech: Is slowed, and normal rate tone and volume, minimal responses Language skills are fair Thought processes including: coherent today Thought content: limited engagement in interview but appears dysphoric and anxious, paranoid, nervous Abstract reasoning, and computation: Poor. Description of associations: Poor Description of abnormal or psychotic thoughts: Appears paranoid, reports auditory hallucinations Judgment: poor Insight: poor Orientation: To place and person. Recent and remote memory: fair Attention span and concentration: poor Language: Haitian. Fund of knowledge: Below average, based on interview. Mood: appears depressed, observed dysphoric Remains dysphoric/apathetic DIAGNOSES: Schizophrenia bipolar type Cannabis use disorder ASSESSMENT: Patient found in her room today. She is reporting pain in her back. According to staff patient fell in the evening yesterday. Has laceration to lower lip and complains of bilateral leg pain. She reports depression and anxiety today to staff, had reported fleeting suicidal ideations to cut self. Continues to have delusions, auditory hallucinations (command in nature today per patient) and appears quite paranoid. She cannot be discharged home due to poor insight and judgment. She would not be able to live independently in the community due to continued delusions and command hallucinations. 1530 administrative hearing: Patient had derailed speech, reports that her mental illness is the "worst that it has ever been ", although she does not want to [facility] stating that the people they are toxic. She was not able to report her chief complaint on this admission. She stated that other tenants in her apartment building or hoarding and bothering her. On this admission patient had reported that she was suicidal and she had stopped taking her medications while she was a resident at [facility], and had decompensated, was bi zarre and delusional. MANAGEMENT PLAN: Continue medications. Patient is compliant with medications. [place] [facility] [place] Spent: 25 minutes Vital Signs Vital Signs Date Time Temp Pulse Resp B/P (MAP) Pulse Ox O2 Delivery O2 Flow Rate FiO2 08/09/21 09:44 86 140/70 08/08/21 21:55 99.3 18 97 Room Air Laboratory Data 24H Labs Laboratory Tests 2 08/08/21 22:40: Immature Granulocyte % (Auto) 0.5, Neutrophils (%) (Auto) 61.8, Lymphocytes (%) (Auto) 26.8, Monocytes (%) (Auto) 10.8H, Eosinophils (%) (Auto) 0.0, Basophils (%) (Auto) 0.1, Neutrophils # (Auto) 4.7, Lymphocytes # (Auto) 2.0, Monocytes # (Auto) 0.8, Eosinophils # (Auto) 0.0, Basophils # (Auto) 0.0, Nucleated Red Bl ood Cells % (auto) 0.0, Anion Gap 4L, Glomerular Filtration Rate > 60.0, Calcium Level 9.5, Magnesium Level 1.9, Total Creatine Kinase 63 08/09/21 07:14: [facility]side [facility] 106 08/09/21 11:14: Urine Color YELLOW, Urine Appearance CLOUDYH, Urine pH 8.0, Urine Specific [place] 1.010, Urine Protein NEGATIVE, Urine Glucose (UA) NEGATIVE, Urine Ketones NEGATIVE, Urine Blood NEGATIVE, Urine Nitrite NEGATIVE, Urine Bilirubin NEGATIVE, Urine Urobilinogen 0.2, Urine Leukocyte Esterase 3+H, Urine WBC (Auto) 19H, Urine RBC (Auto) 1, Urine Hyaline Casts (Auto) 0, Urine Bacteria (Auto) 1+H, Urine Squamous Epithelial Cells 2, Urine Renal Epithelial Cells 2, Urine Amorphous Sediment SMALLH, Urine Sperm (Auto) CBC/BMP Laboratory Tests 08/08/21 22:40 Current Medications Current Medications Medications (Trade) Dose Ordered Sig/Floyd Route PRN Reason Start Time Stop Time Status Last Admin Dose Admin Acetaminophen (Tylenol Tab) 650 mg Q6HP PRN PO HEADACHE or MILD DISCOMFORT 07/11/21 13:45 08/08/21 14:10 Al Hydrox/Mg Hydrox/Simethicone (Mylanta) 30 ml Q4HP PRN PO HEARTBURN/INDIGESTION 07/11/21 13:45 Amlodipine Besylate (Norvasc) 5 mg DAILY PO 07/15/21 09:00 07/18/21 13:45 DC 07/18/21 08:53 Amlodipine Besylate (Norvasc) 10 mg DAILY PO 07/19/21 09:00 08/09/21 09:44 Aspirin (Aspirin Chewable) 81 mg DAILY PO 07/11/21 09:00 07/11/21 16:20 DC 07/11/21 08:05 Aspirin (Ecotrin) 81 mg DAILY PO 07/12/21 09:00 08/09/21 09:44 Atorvastatin Calcium (Lipitor) 10 mg QHS PO 07/11/21 21:00 07/11/21 16:20 DC Atorvastatin Calcium (Lipitor) 10 mg QHS PO 07/11/21 21:00 08/08/21 21:47 Benztropine Mesylate (Cogentin) 2 mg BID PO 07/12/21 21:00 08/09/21 09:43 Diphenhydramine HCl (Benadryl) 50 mg STAT STAT IM 07/20/21 12:43 07/20/21 12:44 DC 07/20/21 12:57 Docusate Sodium (Colace) 100 mg DAILY PO 07/11/21 09:00 07/11/21 16:21 DC 07/11/21 08:05 Docusate Sodium (Colace) 100 mg DAILY PO 07/12/21 09:00 07/13/21 09:20 DC 07/12/21 09:15 Docusate Sodium (Colace) 100 mg Q12HP PRN PO CONSTIPATION 07/15/21 10:25 07/23/21 10:13 Ferrous Sulfate (Ferrous Sulfate) 325 mg DAILY PO 07/11/21 09:00 07/11/21 16:22 DC 07/11/21 08:05 Ferrous Sulfate (Ferrous Sulfate) 325 mg DAILY PO 07/12/21 09:00 08/09/21 09:44 Haloperidol (Haldol) 5 mg BID PO 07/11/21 09:00 07/11/21 16:23 DC 07/11/21 08:05 Haloperidol (Haldol) 5 mg BID PO 07/11/21 21:00 07/12/21 16:20 DC 07/12/21 09:16 Haloperidol (Haldol) 5 mg Q4HP PRN PO AGITATION 07/12/21 16:15 08/06/21 15:02 Haloperidol (Haldol) 5 mg STAT STAT IM 07/20/21 12:43 07/20/21 12:44 DC 07/20/21 12:56 Haloperidol (Haldol) 10 mg BID PO 07/30/21 21:00 08/09/21 09:44 Haloperidol (Haldol) 10 mg BID PO 07/12/21 21:00 07/30/21 17:46 DC 07/29/21 21:06 Home Med (Home Med List Complete!) ASDIRECTED XX 07/09/21 17:45 07/09/21 17:46 DC Levofloxacin (Levaquin) 500 mg DAILY@06 PO 08/09/21 14:00 08/14/21 13:59 Levofloxacin (Levaquin) 750 mg Q48H PO 07/17/21 18:00 07/23/21 18:01 DC 07/21/21 17:41 Levothyroxine Sodium (Synthroid) 25 mcg DAILY@06 PO 07/11/21 06:00 07/11/21 16:24 DC Levothyroxine Sodium (Synthroid) 25 mcg DAILY@0600 PO 07/12/21 06:00 08/09/21 07:17 Lidocaine (Lidoderm Patch) 2 patch DAILY TD 07/18/21 17:00 07/29/21 08:58 DC 07/28/21 09:05 Lidocaine (Lidoderm Patch) 2 patch DAILY TD 07/30/21 09:00 08/09/21 09:43 Lisinopril (Prinivil) 5 mg DAILY PO 07/11/21 09:00 07/11/21 16:25 DC 07/11/21 08:05 Lisinopril (Prinivil) 5 mg DAILY PO 07/12/21 09:00 07/15/21 10:26 DC 07/15/21 08:47 Loperamide HCl (Imodium) 2 mg DAILY PO 07/11/21 09:00 07/13/21 09:20 DC 07/12/21 09:16 Lorazepam (Ativan) 0.25 mg BID PRN PO anxiety 07/11/21 15:10 Cancel Lorazepam (Ativan) 0.5 mg STAT STAT PO 07/11/21 09:53 9/7/21 09:54 DC 07/11/21 09:58 Lorazepam (Ativan) 1 mg Q6HP PRN PO ANXIETY 07/18/21 12:00 08/04/21 12:00 Lorazepam (Ativan) 2 mg Q4HP PRN PO ANXIETY/AGITATION 07/12/21 16:15 07/18/21 11:59 DC 07/16/21 04:51 Lorazepam (Ativan) 2 mg STAT STAT IM 07/20/21 12:43 07/20/21 12:44 DC 07/20/21 12:56 Magnesium Hydroxide (Milk Of Magnesia) 30 ml DAILYPRN PRN PO CONSTIPATION 07/11/21 13:45 08/01/21 11:06 DC 07/30/21 07:57 Magnesium Hydroxide (Milk Of Magnesia) 30 ml Q4HP PRN PO CONSTIPATION 08/01/21 11:05 08/08/21 22:04 Meloxicam (Mobic) 15 mg DAILY PO 07/11/21 09:00 07/11/21 16:29 DC 07/11/21 08:06 Meloxicam (Mobic) 15 mg DAILY PO 07/12/21 09:00 07/18/21 13:38 DC 07/18/21 08:53 Miscellaneous (Unresolved Clarification Entry) SEE LABEL COMMENTS DAILY XX 07/17/21 09:00 07/18/21 11:17 DC Miscellaneous (Unresolved Clarification Entry) SEE LABEL COMMENTS DAILY XX 07/21/21 09:00 07/24/21 11:18 DC Miscellaneous (Unresolved Clarification Entry) SEE LABEL COMMENTS DAILY XX 07/24/21 09:00 07/25/21 08:22 DC Miscellaneous (Unresolved Clarification Entry) SEE LABEL COMMENTS DAILY XX 07/25/21 09:00 07/25/21 10:26 DC Miscellaneous (Unresolved Clarification Entry) SEE LABEL COMMENTS DAILY XX 08/08/21 09:00 08/09/21 10:03 DC Morphine Sulfate (Ms Contin) 15 mg BID PO 08/01/21 21:00 08/02/21 16:12 DC 08/02/21 10:57 Morphine Sulfate (Msir) 15 mg Q4HP PRN PO SEVERE PAIN (PS 8-10) 08/01/21 17:00 08/09/21 10:00 DC 08/08/21 03:46 Naloxone HCl (Narcan) 0.1 mg Q5MP PRN IV RESP. RATE < 10 08/01/21 11:05 08/02/21 07:57 DC Nicotine (Nicoderm Cq 21mg) 1 patch DAILYPRN PRN TD NICOTINE WITHDRAWAL 07/11/21 13:45 08/08/21 14:48 DC Non-Formulary Medication ( See Comment Field Below ) REMOVE LIDODERM PATCH DAILY@0500 XX 07/19/21 05:00 07/29/21 08:58 DC 07/29/21 05:00 Non-Formulary Medication ( See Comment Field Below ) REMOVE LIDODERM PATCH DAILY@21 XX 07/18/21 21:00 07/19/21 08:35 DC Non-Formulary Medication ( See Comment Field Below ) REMOVE LIDODERM PATCH DAILY@2100 XX 07/29/21 21:00 08/08/21 21:00 Non-Formulary Medication ( See Comment Field Below ) SEE COMMENTS SECTION 1T@10 XX 08/05/21 10:00 08/06/21 09:59 UNV Non-Formulary Medication ( See Comment Field Below ) SEE LABEL COMMENTS DAILY XX 08/03/21 09:00 08/05/21 13:25 DC Polyethylene Glycol (Miralax) 1 pkt DAILYPRN PRN PO CONSTIPATION 08/01/21 11:05 Pregabalin (Lyrica) 100 mg BID PO 07/11/21 09:00 07/11/21 16:30 DC 07/11/21 08:05 Pregabalin (Lyrica) 100 mg BID PO 07/11/21 21:00 08/02/21 16:11 DC 08/02/21 10:56 Pregabalin (Lyrica) 100 mg TID PO 08/02/21 16:00 08/09/21 09:44 Psyllium Hydrophilic Mucilloid (Metamucil) 1 pkt DAILY PO 07/11/21 09:00 07/11/21 16:31 DC 07/11/21 09:01 Psyllium Hydrophilic Mucilloid (Metamucil) 1 pkt DAILY PO 07/12/21 09:00 07/13/21 09:20 DC Senna/Docusate Sodium (Senokot S) 2 tab BIDP PRN PO CONSTIPATION 08/01/21 11:05 Sertraline HCl (Zoloft) 200 mg DAILY PO 07/11/21 09:00 07/11/21 16:34 DC 07/11/21 08:06 Sertraline HCl (Zoloft) 200 mg DAILY PO 07/12/21 09:00 08/09/21 09:45 Tramadol HCl (Ultram) 50 mg Q4HP PRN PO PAIN LEVEL 7-10 08/09/21 10:00 Tramadol HCl (Ultram) 50 mg Q6HP PRN PO MODERATE PAIN (PS 5-7) 07/18/21 16:25 08/01/21 11:04 DC 08/01/21 05:47 Trazodone HCl (Desyrel) 50 mg QHS PO 07/11/21 21:00 08/01/21 11:04 DC 07/31/21 21:09 Trazodone HCl (Desyrel) 50 mg QHS PO 07/11/21 21:00 07/11/21 13:57 DC Trazodone HCl (Desyrel) 50 mg QHSP PRN PO INSOMNIA 07/11/21 13:45 07/11/21 16:35 DC Trihexyphenidyl HCl (Artane) 2 mg QHS PO 07/11/21 21:00 07/11/21 16:32 DC Trihexyphenidyl HCl (Artane) 2 mg QHS PO 07/11/21 21:00 07/12/21 16:27 DC 07/12/21 01:06 Vitamin D (Vitamin D) 2,000 units DAILY PO 07/11/21 09:00 07/11/21 16:35 DC 07/11/21 08:05 Vitamin D (Vitamin D) 2,000 units DAILY PO 07/12/21 09:00 08/09/21 09:43 Vitamin E (Vitamin E) 400 units DAILY PO 07/11/21 09:00 07/11/21 16:35 DC 07/11/21 09:01 Vitamin E (Vitamin E) 400 units DAILY PO 07/12/21 09:00 08/09/21 09:44 Allergies Coded Allergies: Penicillins (Verified Allergy, Unknown, rash/hives, 05/21/20) Sulfa (Sulfonamide Antibiotics) (Verified Allergy, Unknown, n/v, 05/21/20) "I get deathly ill, I feel like I'm dying." fluoxetine (Verified Allergy, Unknown, SI, 05/21/20) thioridazine (Verified Allergy, Unknown, 05/21/20) valproic acid (Verified Allergy, Unknown, SEDATION, 05/21/20) RAJEEV LOONEY NP Aug 09, 2021 12:54
[2021-08-09] MEDS: MOM 30ML SUSPENSION UDC PO PRN (16:43)
[2021-08-09 19:22] VITALS: BP 110/60
[2021-08-09] MEDS: ATORVASTATIN 10 MG TAB PO SCH (20:16)
[2021-08-09] MEDS: **NOTE PATIENT COMMENT** MISC XX SCH (20:17)
[2021-08-10] MEDS: traMADol 50 MG TAB PO PRN (01:19)
[2021-08-10] MEDS: LEVOTHYROXINE 25MCG TABLET (0.025MG) PO SCH (05:45)
[2021-08-10] MEDS: LevoFLOXacin 500 MG TABLET PO SCH (05:45)
[2021-08-10 06:31] VITALS: BP 128/71
[2021-08-10] MEDS: SERTRALINE 100 MG TAB PO SCH (09:03)
[2021-08-10] MEDS: VITAMIN D 1,000 INTERNATIONAL UNITS TABLET PO SCH (09:03)
[2021-08-10] MEDS: BENZTROPINE 2 MG TAB PO SCH ×2 (09:03→20:20)
[2021-08-10] MEDS: PREGABALIN 100 MG CAP (LYRICA) PO SCH ×3 (09:03→20:19)
[2021-08-10] MEDS: LIDOCAINE 5% (LIDODERM) PATCH TD SCH (09:03)
[2021-08-10] MEDS: ASPIRIN 81MG ENTERIC TABLET PO SCH (09:03)
[2021-08-10] MEDS: FERROUS SULFATE 325MG TAB PO SCH (09:04)
[2021-08-10] MEDS: VITAMIN E 400 INTERNATIONAL UNITS CAP PO SCH (09:04)
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
[2021-08-10] MEDS: ACETAMINOPHEN TAB 650MG DOSE (2X325MG) PO SCH ×4 (10:07→20:20)
[2021-08-10] MEDS: traMADol 50 MG TAB PO SCH ×4 (10:36→22:39)
[2021-08-10 16:12] VITALS: BP 131/63
[2021-08-10] MEDS: DOCUSATE SODIUM 100MG CAPSULE PO PRN (17:00)
[2021-08-10] MEDS: MOM 30ML SUSPENSION UDC PO PRN (18:52)
[2021-08-10] MEDS: ATORVASTATIN 10 MG TAB PO SCH (20:19)
[2021-08-10] MEDS: **NOTE PATIENT COMMENT** MISC XX SCH (20:22)
[2021-08-11] MEDS: LevoFLOXacin 500 MG TABLET PO SCH (05:23)
[2021-08-11] MEDS: LEVOTHYROXINE 25MCG TABLET (0.025MG) PO SCH (05:23)
[2021-08-11 06:15] VITALS: BP 167/85
[2021-08-11] MEDS: MOM 30ML SUSPENSION UDC PO PRN ×2 (06:25→22:12)
[2021-08-11] MEDS: VITAMIN E 400 INTERNATIONAL UNITS CAP PO SCH (08:22)
[2021-08-11] MEDS: ACETAMINOPHEN TAB 650MG DOSE (2X325MG) PO SCH ×4 (08:22→21:26)
[2021-08-11] MEDS: SERTRALINE 100 MG TAB PO SCH (08:22)
[2021-08-11] MEDS: BENZTROPINE 2 MG TAB PO SCH ×2 (08:22→21:21)
[2021-08-11] MEDS: ASPIRIN 81MG ENTERIC TABLET PO SCH (08:22)
[2021-08-11] MEDS: LIDOCAINE 5% (LIDODERM) PATCH TD SCH (08:23)
[2021-08-11] MEDS: FERROUS SULFATE 325MG TAB PO SCH (08:23)
[2021-08-11] MEDS: VITAMIN D 1,000 INTERNATIONAL UNITS TABLET PO SCH (08:23)
[2021-08-11] MEDS: PREGABALIN 100 MG CAP (LYRICA) PO SCH ×3 (08:23→21:21)
--- NOTE | 2021-08-11 10:22 | CR ---
CONSULTATION DATE: 08/11/2021 CHIEF COMPLAINT: Low back pain. HISTORY OF PRESENT ILLNESS: I spoke with Hugo the nurse in the psychiatric [facility] taking care of this patient shortly before speaking with the attending. Hugo states the patient has back pain and bulging discs on her MRI. This is a consultation requested by Dr. Angela, the psychiatrist. I was asked to be consulted by the psychiatrist. He called me subsequently at 9:46 this morning. The physician states that the MRI shows possible signs of cauda equina from a week ago. He is unsure even how long the back pain has been present. He has not done a physical exam or even seen the patient. There is no further history besides that. MRI imaging, date of service 08/01/2021 at 1857: MRI of the lumbar spine without contrast, reason for exam, abscess. The impression per the radiologist was spondylotic changes of the lumbar spine, most pronounced at L4-L5 with moderate to severe canal narrowing and slight crowding of the cauda equina, as detailed above. In the body of the report, L4-L5, combination of anterolisthesis, broad-based disc bulge and facet hypertrophy caused moderate to severe canal narrowing with slight crowding of the cauda equina. Severe bilateral foraminal narrowing with compression of the bilateral exiting L4 nerve roots. ASSESSMENT AND PLAN: This 61-year-old female has MRI evidence of moderate to severe canal narrowing, slight crowding of the cauda equina. This MRI already happened nine days ago. The patient needs the admitting physician to perform a physical exam; with chronic back pain and MRI evidence of cauda equina if they have signs and symptoms on physical exam such as weakness, neurologic changes in the lower extremities, changes in bladder or bowel function, may need emergent neurosurgical or spine consultation and I have made this very clear to Dr. Angela. He will have the Hospitalist examine the patient and then will follow-up with myself he states. I also emphasized that I do not have spine privileges to assess, manage or operate on this condition. SHAR
[2021-08-11] MEDS: traMADol 50 MG TAB PO SCH ×4 (11:36→22:56)
--- NOTE | 2021-08-11 16:51 | MHIPNPDOC ---
[facility] Progress Note Progress Note DATE OF SERVICE: 08/11/21 HISTORY: HISTORY: Patient is a 61 -year-old Single, Disabled, Domiciled, , female, who initially came to the ED with medical complaints of back and leg pain. When she was interviewed by EMS and the ER MD she made suicidal statements that she was planning to jump from a bridge or cut wrist. Interval report: Patient continues to complain of pain in her legs, however reports her suicidal thoughts have resolved. VITAL SIGNS: See below. NEW TEST RESULTS: None CURRENT MEDICATIONS: See below. MENTAL STATUS EXAMINATION: CURRENT MEDICATIONS: See below. MENTAL STATUS EXAMINATION: Patient is a 61-year old female, who appears her stated age, long hair, intense stare, sitting upright in day room, in hospital clothing, unkempt, hygiene and grooming is fair Speech: Is slowed, and normal rate tone and volume, minimal responses Language skills are fair Thought processes including: coherent today Thought content: will not engage in interview but appears dysphoric and anxiety, paranoid Abstract reasoning, and computation: Poor. Description of associations: Poor Description of abnormal or psychotic thoughts: Appears paranoid, reports auditory hallucinations Judgment: poor Insight: poor Orientation: To place and person. Recent and remote memory: fair Attention span and concentration: poor Language: Estonian. Fund of knowledge: Below average, based on interview. Mood: appears depressed, observed dysphoric Remains dysphoric/apathetic DIAGNOSES: Schizophrenia bipolar type Cannabis use disorder ASSESSMENT: Patient still is depressed complains of pain, will consult resolute professional regarding her pain medications MANAGEMENT PLAN: Continue medications. Patient is compliant with medications. Transfer to [facility] [place]. Time Spent: 15 minutes Vital Signs Vital Signs Date Time Temp Pulse Resp B/P (MAP) Pulse Ox O2 Delivery O2 Flow Rate FiO2 08/11/21 14:42 16 08/11/21 08:23 69 138/78 08/11/21 06:15 97.4 100 Room Air Current Medications Current Medications Medications (Trade) Dose Ordered Sig/Floyd Route PRN Reason Start Time Stop Time Status Last Admin Dose Admin Acetaminophen (Tylenol Tab) 650 mg Q6HP PRN PO HEADACHE or MILD DISCOMFORT 07/11/21 13:45 08/10/21 09:49 DC 08/08/21 14:10 Acetaminophen (Tylenol Tab) 650 mg QID PO 08/10/21 09:00 08/11/21 16:33 Al Hydrox/Mg Hydrox/Simethicone (Mylanta) 30 ml Q4HP PRN PO HEARTBURN/INDIGESTION 07/11/21 13:45 Amlodipine Besylate (Norvasc) 5 mg DAILY PO 07/15/21 09:00 07/18/21 13:45 DC 07/18/21 08:53 Amlodipine Besylate (Norvasc) 10 mg DAILY PO 07/19/21 09:00 08/11/21 08:23 Aspirin (Aspirin Chewable) 81 mg DAILY PO 07/11/21 09:00 07/11/21 16:20 DC 07/11/21 08:05 Aspirin (Ecotrin) 81 mg DAILY PO 07/12/21 09:00 08/11/21 08:22 Atorvastatin Calcium (Lipitor) 10 mg QHS PO 07/11/21 21:00 07/11/21 16:20 DC Atorvastatin Calcium (Lipitor) 10 mg QHS PO 07/11/21 21:00 08/10/21 20:19 Benztropine Mesylate (Cogentin) 2 mg BID PO 07/12/21 21:00 08/11/21 08:22 Diphenhydramine HCl (Benadryl) 50 mg STAT STAT IM 07/20/21 12:43 07/20/21 12:44 DC 07/20/21 12:57 Docusate Sodium (Colace) 100 mg DAILY PO 07/11/21 09:00 07/11/21 16:21 DC 07/11/21 08:05 Docusate Sodium (Colace) 100 mg DAILY PO 07/12/21 09:00 07/13/21 09:20 DC 07/12/21 09:15 Docusate Sodium (Colace) 100 mg Q12HP PRN PO CONSTIPATION 07/15/21 10:25 08/10/21 17:00 Ferrous Sulfate (Ferrous Sulfate) 325 mg DAILY PO 07/11/21 09:00 07/11/21 16:22 DC 07/11/21 08:05 Ferrous Sulfate (Ferrous Sulfate) 325 mg DAILY PO 07/12/21 09:00 08/11/21 08:23 Haloperidol (Haldol) 5 mg BID PO 07/11/21 09:00 07/11/21 16:23 DC 07/11/21 08:05 Haloperidol (Haldol) 5 mg BID PO 07/11/21 21:00 07/12/21 16:20 DC 07/12/21 09:16 Haloperidol (Haldol) 5 mg Q4HP PRN PO AGITATION 07/12/21 16:15 08/06/21 15:02 Haloperidol (Haldol) 5 mg STAT STAT IM 07/20/21 12:43 07/20/21 12:44 DC 07/20/21 12:56 Haloperidol (Haldol) 10 mg BID PO 07/30/21 21:00 08/11/21 08:23 Haloperidol (Haldol) 10 mg BID PO 07/12/21 21:00 07/30/21 17:46 DC 07/29/21 21:06 Home Med (Home Med List Complete!) ASDIRECTED XX 07/09/21 17:45 07/09/21 17:46 DC Levofloxacin (Levaquin) 500 mg DAILY@06 PO 08/09/21 14:00 08/14/21 13:59 08/11/21 05:23 Levofloxacin (Levaquin) 750 mg Q48H PO 07/17/21 18:00 07/23/21 18:01 DC 07/21/21 17:41 Levothyroxine Sodium (Synthroid) 25 mcg DAILY@06 PO 07/11/21 06:00 07/11/21 16:24 DC Levothyroxine Sodium (Synthroid) 25 mcg DAILY@0600 PO 07/12/21 06:00 08/11/21 05:23 Lidocaine (Lidoderm Patch) 2 patch DAILY TD 07/18/21 17:00 07/29/21 08:58 DC 07/28/21 09:05 Lidocaine (Lidoderm Patch) 2 patch DAILY TD 07/30/21 09:00 08/11/21 08:23 Lisinopril (Prinivil) 5 mg DAILY PO 07/11/21 09:00 07/11/21 16:25 DC 07/11/21 08:05 Lisinopril (Prinivil) 5 mg DAILY PO 07/12/21 09:00 07/15/21 10:26 DC 07/15/21 08:47 Loperamide HCl (Imodium) 2 mg DAILY PO 07/11/21 09:00 07/13/21 09:20 DC 07/12/21 09:16 Lorazepam (Ativan) 0.25 mg BID PRN PO anxiety 07/11/21 15:10 Cancel Lorazepam (Ativan) 0.5 mg STAT STAT PO 07/11/21 09:53 07/11/21 09:54 DC 07/11/21 09:58 Lorazepam (Ativan) 1 mg Q6HP PRN PO ANXIETY 07/18/21 12:00 08/04/21 12:00 Lorazepam (Ativan) 2 mg Q4HP PRN PO ANXIETY/AGITATION 07/12/21 16:15 07/18/21 11:59 DC 07/16/21 04:51 Lorazepam (Ativan) 2 mg STAT STAT IM 07/20/21 12:43 07/20/21 12:44 DC 07/20/21 12:56 Magnesium Hydroxide (Milk Of Magnesia) 30 ml DAILYPRN PRN PO CONSTIPATION 07/11/21 13:45 08/01/21 11:06 DC 07/30/21 07:57 Magnesium Hydroxide (Milk Of Magnesia) 30 ml Q4HP PRN PO CONSTIPATION 08/01/21 11:05 08/11/21 06:25 Meloxicam (Mobic) 15 mg DAILY PO 07/11/21 09:00 07/11/21 16:29 DC 07/11/21 08:06 Meloxicam (Mobic) 15 mg DAILY PO 07/12/21 09:00 07/18/21 13:38 DC 07/18/21 08:53 Miscellaneous (Unresolved Clarification Entry) SEE LABEL COMMENTS DAILY XX 07/17/21 09:00 07/18/21 11:17 DC Miscellaneous (Unresolved Clarification Entry) SEE LABEL COMMENTS DAILY XX 07/21/21 09:00 07/24/21 11:18 DC Miscellaneous (Unresolved Clarification Entry) SEE LABEL COMMENTS DAILY XX 07/24/21 09:00 07/25/21 08:22 DC Miscellaneous (Unresolved Clarification Entry) SEE LABEL COMMENTS DAILY XX 07/25/21 09:00 07/25/21 10:26 DC Miscellaneous (Unresolved Clarification Entry) SEE LABEL COMMENTS DAILY XX 08/08/21 09:00 08/09/21 10:03 DC Miscellaneous (Unresolved Clarification Entry) SEE LABEL COMMENTS DAILY XX 08/11/21 09:00 Morphine Sulfate (Ms Contin) 15 mg BID PO 08/01/21 21:00 08/02/21 16:12 DC 08/02/21 10:57 Morphine Sulfate (Msir) 15 mg Q4HP PRN PO SEVERE PAIN (PS 8-10) 08/01/21 17:00 08/09/21 10:00 DC 08/08/21 03:46 Naloxone HCl (Narcan) 0.1 mg Q5MP PRN IV RESP. RATE < 10 08/01/21 11:05 08/02/21 07:57 DC Nicotine (Nicoderm Cq 21mg) 1 patch DAILYPRN PRN TD NICOTINE WITHDRAWAL 07/11/21 13:45 08/08/21 14:48 DC Non-Formulary Medication ( See Comment Field Below ) REMOVE LIDODERM PATCH DAILY@0500 XX 07/19/21 05:00 07/29/21 08:58 DC 07/29/21 05:00 Non-Formulary Medication ( See Comment Field Below ) REMOVE LIDODERM PATCH DAILY@21 XX 07/18/21 21:00 07/19/21 08:35 DC Non-Formulary Medication ( See Comment Field Below ) REMOVE LIDODERM PATCH DAILY@2100 XX 07/29/21 21:00 08/10/21 20:22 Non-Formulary Medication ( See Comment Field Below ) SEE COMMENTS SECTION 1T@10 XX 08/05/21 10:00 08/06/21 09:59 UNV Non-Formulary Medication ( See Comment Field Below ) SEE LABEL COMMENTS DAILY XX 08/03/21 09:00 08/05/21 13:25 DC Polyethylene Glycol (Miralax) 1 pkt DAILYPRN PRN PO CONSTIPATION 08/01/21 11:05 08/10/21 13:01 Pregabalin (Lyrica) 100 mg BID PO 07/11/21 09:00 07/11/21 16:30 DC 07/11/21 08:05 Pregabalin (Lyrica) 100 mg BID PO 07/11/21 21:00 08/02/21 16:11 DC 08/02/21 10:56 Pregabalin (Lyrica) 100 mg TID PO 08/02/21 16:00 08/11/21 16:31 Psyllium Hydrophilic Mucilloid (Metamucil) 1 pkt DAILY PO 07/11/21 09:00 07/11/21 16:31 DC 07/11/21 09:01 Psyllium Hydrophilic Mucilloid (Metamucil) 1 pkt DAILY PO 07/12/21 09:00 07/13/21 09:20 DC Senna/Docusate Sodium (Senokot S) 2 tab BIDP PRN PO CONSTIPATION 08/01/21 11:05 Sertraline HCl (Zoloft) 200 mg DAILY PO 07/11/21 09:00 07/11/21 16:34 DC 07/11/21 08:06 Sertraline HCl (Zoloft) 200 mg DAILY PO 07/12/21 09:00 08/11/21 08:22 Tramadol HCl (Ultram) 50 mg Q4HP PRN PO PAIN LEVEL 7-10 08/09/21 10:00 08/10/21 09:49 DC 08/10/21 01:19 Tramadol HCl (Ultram) 50 mg Q6HP PRN PO MODERATE PAIN (PS 5-7) 07/18/21 16:25 08/01/21 11:04 DC 08/01/21 05:47 Tramadol HCl (Ultram) 50 mg QID@1100,1500,1900,2300 PO 08/10/21 11:00 08/11/21 14:42 Trazodone HCl (Desyrel) 50 mg QHS PO 07/11/21 21:00 08/01/21 11:04 DC 07/31/21 21:09 Trazodone HCl (Desyrel) 50 mg QHS PO 07/11/21 21:00 07/11/21 13:57 DC Trazodone HCl (Desyrel) 50 mg QHSP PRN PO INSOMNIA 07/11/21 13:45 07/11/21 16:35 DC Trihexyphenidyl HCl (Artane) 2 mg QHS PO 07/11/21 21:00 07/11/21 16:32 DC Trihexyphenidyl HCl (Artane) 2 mg QHS PO 07/11/21 21:00 07/12/21 16:27 DC 07/12/21 01:06 Vitamin D (Vitamin D) 2,000 units DAILY PO 07/11/21 09:00 9/7/21 16:35 DC 07/11/21 08:05 Vitamin D (Vitamin D) 2,000 units DAILY PO 07/12/21 09:00 08/11/21 08:23 Vitamin E (Vitamin E) 400 units DAILY PO 07/11/21 09:00 07/11/21 16:35 DC 07/11/21 09:01 Vitamin E (Vitamin E) 400 units DAILY PO 07/12/21 09:00 08/11/21 08:22 Allergies Coded Allergies: Penicillins (Verified Allergy, Unknown, rash/hives, 05/21/20) Sulfa (Sulfonamide Antibiotics) (Verified Allergy, Unknown, n/v, 05/21/20) "I get deathly ill, I feel like I'm dying." fluoxetine (Verified Allergy, Unknown, SI, 05/21/20) thioridazine (Verified Allergy, Unknown, 05/21/20) valproic acid (Verified Allergy, Unknown, SEDATION, 05/21/20) HOLDEN ROCHA MD Aug 11, 2021 16:51
[2021-08-11 19:16] VITALS: BP 134/62
[2021-08-11] MEDS: ATORVASTATIN 10 MG TAB PO SCH (21:21)
[2021-08-11] MEDS: **NOTE PATIENT COMMENT** MISC XX SCH (21:30)
[2021-08-12] MEDS: LORazepam 1 MG TAB PO PRN (03:05)
[2021-08-12] MEDS: LevoFLOXacin 500 MG TABLET PO SCH (05:45)
[2021-08-12] MEDS: LEVOTHYROXINE 25MCG TABLET (0.025MG) PO SCH (05:47)
[2021-08-12] MEDS: FERROUS SULFATE 325MG TAB PO SCH (09:00)
[2021-08-12] MEDS: LIDOCAINE 5% (LIDODERM) PATCH TD SCH (09:59)
[2021-08-12] MEDS: VITAMIN E 400 INTERNATIONAL UNITS CAP PO SCH (10:00)
[2021-08-12] MEDS: ACETAMINOPHEN TAB 650MG DOSE (2X325MG) PO SCH ×4 (10:00→21:00)
[2021-08-12] MEDS: VITAMIN D 1,000 INTERNATIONAL UNITS TABLET PO SCH (10:00)
[2021-08-12] MEDS: SERTRALINE 100 MG TAB PO SCH (10:00)
[2021-08-12] MEDS: BENZTROPINE 2 MG TAB PO SCH ×2 (10:01→21:00)
[2021-08-12] MEDS: ASPIRIN 81MG ENTERIC TABLET PO SCH (10:01)
[2021-08-12] MEDS: PREGABALIN 100 MG CAP (LYRICA) PO SCH ×3 (10:02→21:00)
[2021-08-12] MEDS: traMADol 50 MG TAB PO SCH ×4 (10:33→23:15)
[2021-08-12] MEDS: MOM 30ML SUSPENSION UDC PO PRN (17:50)
[2021-08-12 19:05] VITALS: BP 140/87
[2021-08-12] MEDS: **NOTE PATIENT COMMENT** MISC XX SCH (21:00)
[2021-08-12] MEDS: ATORVASTATIN 10 MG TAB PO SCH (21:00)
[2021-08-13] MEDS: LORazepam 1 MG TAB PO PRN ×2 (01:26→20:12)
[2021-08-13] MEDS: ACETAMINOPHEN TAB 650MG DOSE (2X325MG) PO SCH ×4 (03:06→16:13)
[2021-08-13] MEDS: PREGABALIN 100 MG CAP (LYRICA) PO SCH ×4 (03:06→20:23)
[2021-08-13] MEDS: LEVOTHYROXINE 25MCG TABLET (0.025MG) PO SCH (05:39)
[2021-08-13] MEDS: LevoFLOXacin 500 MG TABLET PO SCH (05:39)
[2021-08-13 06:29] VITALS: BP 146/82
[2021-08-13] MEDS: BENZTROPINE 2 MG TAB PO SCH ×2 (08:33→20:23)
[2021-08-13] MEDS: ASPIRIN 81MG ENTERIC TABLET PO SCH (08:33)
[2021-08-13] MEDS: LIDOCAINE 5% (LIDODERM) PATCH TD SCH (08:33)
[2021-08-13 08:34] VITALS: BP 146/82
[2021-08-13] MEDS: FERROUS SULFATE 325MG TAB PO SCH (08:34)
[2021-08-13] MEDS: VITAMIN D 1,000 INTERNATIONAL UNITS TABLET PO SCH (08:34)
[2021-08-13] MEDS: VITAMIN E 400 INTERNATIONAL UNITS CAP PO SCH (08:34)
[2021-08-13] MEDS: SERTRALINE 100 MG TAB PO SCH (08:34)
[2021-08-13] MEDS: traMADol 50 MG TAB PO SCH ×3 (11:07→19:11)
[2021-08-13 14:00] VITALS: BP 132/65
[2021-08-13] MEDS ORDERED: oxyCODONE 5MG TAB PO PRN ×2 (14:40→19:00)
[2021-08-13] MEDS: MOM 30ML SUSPENSION UDC PO PRN (16:14)
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
[2021-08-13] MEDS ORDERED: LEVO500T3 PO (18:27)
[2021-08-13] MEDS ORDERED: HALO10TA20 PO (18:27)
[2021-08-13] MEDS ORDERED: AMLO1TAB25 PO (18:27)
[2021-08-13 18:36] LABS: RSV AMPLIFICATION NEGATIVE (NEGATIVE)
[2021-08-13] MEDS: ATORVASTATIN 10 MG TAB PO SCH (20:23)
[2021-08-13 20:32] VITALS: BP 145/67
[2021-08-13] MEDS: **NOTE PATIENT COMMENT** MISC XX SCH (20:39)
--- NOTE | 2021-08-14 08:44 | IPN ---
PROGRESS NOTE DATE: 08/13/2021 SUBJECTIVE: This is a 61-year-old female. I was called today by Dr. Chavez, the Hospitalist, at 2:30 p.m. There was a concern for lower extremity weakness. ASSESSMENT AND PLAN: I let Dr. Chavez know that I had already dictated a consultation report when I was initially called about this patient two days ago of the emergent nature of obtaining a spine or neurosurgical consultation. I was very clear with the psychiatrist who initially called me about this about my recommendations for management. Dr. Chavez understood and will coordinate the next steps in terms of having this patient seen and assessed by spine or neurosurgical consultation given the MRI findings. Dr Easton stated that this was the first time that anybody had talked to him about the patient.
--- NOTE | 2021-08-14 09:21 | MHDS ---
[facility] DISCHARGE SUMMARY DATE OF ADMISSION: 07/11/2021 DATE OF DISCHARGE: 08/13/2021 IDENTIFYING DATA: She is a 61-year-old female, single, disabled who came to the Emergency Room for medical complaints of back pain and neck pain. During the evaluation she reported that she wanted to hurt herself because of the pain, and she was transferred to [facility]. The patient has been diagnosed with schizo-affective disorder bipolar type. For details of HPI, past psychiatric history, personal history, medical history, social history, substance abuse history, please refer to the initial evaluation. COURSE IN THE HOSPITAL: The patient is always contemplating depression and suicidal thoughts. Her pain was severe. She was placed on pregabalin. She continued to have pain. The orthopedic surgeon was called. He made a recommendation that she has to be seen by a physician at [facility] as he does not have privileges here. However, after the automobile tester consulted the spine surgeon with the symptoms of the patient falling down frequently and MRI findings, it was decided that she needed emergency surgery and she will be transferred to [facility] today for emergency surgery. MENTAL STATUS EXAMINATION: Casually dressed, cooperative, depressed. Complains of pain. Her personal hygiene is good. Well groomed. Denied any suicidal or homicidal ideas. Denied any hallucinations or delusions. Insight and judgment are fair. Memory, immediate, remote, recent, are good. DIAGNOSES: 1. Schizo-affective disorder bipolar type. 2. Chronic back ache. 3. Leg pain. The plan is to discharge her to the hospital. DISCHARGE MEDICATIONS: 1. Lyrica 100 mg three times a day. 2. Haloperidol 10 mg twice a day. 3. Cogentin 1 mg twice a day. 4. Levothyroxine 25 mcg once daily.
== END 2021-08-13 21:11 | disposition short-term general hospital (02) | DRG 885 ==
LOC: M ED 09:37 → M ED INP 07-11 13:43 → M PSY 07-11 16:45
PROVIDERS: ADMIT Psychiatry & Neurology Child & Adolescent Psychiatry; ATTEND Psychiatry & Neurology Psychiatry
DX: F25.0 Schizoaffective disorder, bipolar type (principal); R45.851 Suicidal ideations; N17.9 Acute kidney failure, unspecified; G83.4 Cauda equina syndrome; M54.59 Other low back pain; Z79.899 Other long term (current) drug therapy; K21.9 Gastro-esophageal reflux disease without esophagitis; I10 Essential (primary) hypertension; E78.5 Hyperlipidemia, unspecified; Z79.82 Long term (current) use of aspirin; Z88.0 Allergy status to penicillin; Z88.2 Allergy status to sulfonamides; Z88.8 Allergy status to other drugs, medicaments and biological substances; N18.30 Chronic kidney disease, stage 3 unspecified; G40.909 Epilepsy, unspecified, not intractable, without status epilepticus; E11.9 Type 2 diabetes mellitus without complications; M47.812 Spondylosis without myelopathy or radiculopathy, cervical region; M47.816 Spondylosis without myelopathy or radiculopathy, lumbar region; Z87.891 Personal history of nicotine dependence; E03.9 Hypothyroidism, unspecified; G89.29 Other chronic pain; Z91.14 Patient's other noncompliance with medication regimen; R29.6 Repeated falls

== ENCOUNTER 2021-08-17 17:23 | Inpatient (IN) | payer MEDICARE, MEDICAID ==
[~2021-08-17 17:23] MED LIST changes: +AMLO1TAB25 PO; +FERR325T3 PO; +HALO10TA20 PO; +LEVO500T3 PO; +LOPE1CAP5 PO; +MELA10CA PO; +META28.32 PO; +TRAZ-252 PO; +VITA400C81 PO
--- NOTE | 2021-08-17 19:49 | MHIPNPDOC ---
[facility] Progress Note Progress Note DATE OF SERVICE: 08/17/21 Patient presented by PSA, meets criteria for involuntary admission due to psychosis. Returns from medical evaluation for severe back pain. Patient medically cleared. Orders were given to [facility]. Allergies Coded Allergies: Penicillins (Verified Allergy, Unknown, rash/hives, 05/21/20) Sulfa (Sulfonamide Antibiotics) (Verified Allergy, Unknown, n/v, 05/21/20) "I get deathly ill, I feel like I'm dying." fluoxetine (Verified Allergy, Unknown, SI, 05/21/20) thioridazine (Verified Allergy, Unknown, 05/21/20) valproic acid (Verified Allergy, Unknown, SEDATION, 05/21/20) REECE HUYNH MD Aug 17, 2021 19:49
[2021-08-17] MEDS ORDERED: MAALOX 30 ML SUSP *UDC PO PRN (20:00)
[2021-08-17] MEDS ORDERED: traZODone 50 MG TAB PO PRN (20:00)
[2021-08-18] MEDS ORDERED: LEVO500T3 PO (05:33)
[2021-08-18] MEDS ORDERED: AMLO1TAB25 PO (05:33)
[2021-08-18] MEDS ORDERED: HALO10TA20 PO (05:33)
[2021-08-18] MEDS ORDERED: PATIENT COMMENT (05:35)
[2021-08-18] MEDS ORDERED: HOME MED LIST COMPLETE! XX SCH (05:40)
[2021-08-18 07:10] VITALS: BP 170/90
[2021-08-18] MEDS ORDERED: METAMUCIL (PSYLLIUM) PACKET PO SCH (09:00)
[2021-08-18] MEDS: VITAMIN D 1,000 INTERNATIONAL UNITS TABLET PO SCH (09:25)
[2021-08-18] MEDS: SERTRALINE 100 MG TAB PO SCH (09:25)
[2021-08-18] MEDS: lisinopriL 5 MG TAB PO SCH (09:25)
[2021-08-18] MEDS: FERROUS SULFATE 325MG TAB PO SCH (09:25)
[2021-08-18] MEDS: PREGABALIN 100 MG CAP (LYRICA) PO SCH ×2 (09:25→20:08)
[2021-08-18] MEDS: DOCUSATE SODIUM 100MG CAPSULE PO SCH (09:26)
[2021-08-18] MEDS: ASPIRIN 81MG ENTERIC TABLET PO SCH (09:26)
[2021-08-18] MEDS: VITAMIN E 400 INTERNATIONAL UNITS CAP PO SCH (09:26)
[2021-08-18] MEDS: LEVOTHYROXINE 25MCG TABLET (0.025MG) PO SCH (09:26)
[2021-08-18] MEDS: MIRALAX *UNIT DOSE* 17GM PACKET PO SCH (11:22)
[2021-08-18] MEDS: ACETAMINOPHEN TAB 650MG DOSE (2X325MG) PO PRN ×2 (12:12→20:09)
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
[2021-08-18] MEDS: traMADol 50 MG TAB PO PRN ×2 (16:12→22:48)
[2021-08-18 16:39] VITALS: BP 140/69
[2021-08-18] MEDS: ATORVASTATIN 10 MG TAB PO SCH (20:08)
[2021-08-18] MEDS: traZODone 50 MG TAB PO SCH (20:08)
[2021-08-19] MEDS: ACETAMINOPHEN TAB 650MG DOSE (2X325MG) PO PRN ×3 (04:13→19:58)
[2021-08-19] MEDS: LEVOTHYROXINE 25MCG TABLET (0.025MG) PO SCH (04:51)
[2021-08-19] MEDS: traMADol 50 MG TAB PO PRN ×4 (04:52→23:21)
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
[2021-08-19 06:28] VITALS: BP 144/82
--- NOTE | 2021-08-19 07:34 | HPEPDOC ---
[facility] Medical History & Physical Date of Admission Aug 17, 2021 Date of Service: Aug 18, 2021 Attending Physician: MILDRED OLMOS MD History and Physical CHIEF COMPLAINT: Medical H&P for [facility] patient admitted in cristofer psychosis HISTORY OF PRESENT ILLNESS: 61yo W with a complex medical history including NIDDM, Hypertension, Hyperlipidemia, Seizure disorder, Schizophrenia, history of Compression fracture C7, Cervical and lumbar spondylosis w/prior referral to neurology and pain management as outpatient, history of partially compensated communicating hydrocephalus, CKD who was recently admitted to the [facility] for psychosis with paranoid delusions, and auditory hallucinations and while the team was planning a transfer to long-term [facility], she reported persistent low back pain as well as dysuria and she was treated for E. coli and Morganella UTI and had an MRI on 08/01/2021 which demonstrated significant change from previous MRI as it demonstrated at L4-L5 a combination of anterolisthesis, broad-based disc bulge, and facet hypertrophy causing moderate to severe canal narrowing with crowding of the cauda equina. She also had severe bilateral foraminal narrowing with compression of the bilateral L4 nerve root. Orthopedic surgery was consulted on 08/11/2021. The recommended reaching out to the hospitalist team for evaluation of cauda equina syndrome and evaluation had inner thigh numbness and radicular pain down her legs and was ultimately transferred to neuro spine at [facility]. She now returned to the [facility] after clearance without having had any surgical intervention. At this time she is pleasantly psychotic but reports some back pain and is currently ordered only for tylenol and is reporting some dysuria. Of note, her recent UTI was incompletely treated. She otherwise denies any fevers, chills, weakness, fatigue, CABEZAS, CP, SOB, cough, palpitations, abdominal pain, N/V/D or changes in bowel or bladder habits. PMHx: DM GERD Hypertension Hyperlipidemia Seizure disorder Schizophrenia Compression fracture C7, old History of Cervical and lumbar spondylosis History of partially compensated communicating hydrocephalus Obesity-referral for gastric bypass requested as per Dr. Ernandez as outpatient CKD 2-3- referral to nephrology as outpatient. GERD Vitamin D deficiency PSHX: left ear surgery left kidney repair as child SOCHX: Marital Status: Single Tobacco use: Denies ETOH: Denies Illicit Drugs: Denies IV Drug Use: Denies Tattoos done unprofessionally: Denies FAMHX: Mother: , MVA Father: , old age ROS: As noted in HPI, otherwise 10pt ROS of systems reviewed and unremarkable Physical Examination: GEN: Well-nourished, well developed. No acute distress. Alert and oriented x 3. HEENT: Normocephalic, atraumatic. Pupils are equal, round, and reactive to light. Extraocular movements are intact. Sclera are anicteric. Conjunctiva without injection. Moist mucous membranes. Dentition poor. Neck: supple, trachea midline. No lymphadenopathy or thyromegaly appreciated. CHEST: Regular rate and rhythm, +S1, +S2 LUNGS: Clear to auscultation bilaterally. No wheezes, rales, or rhonchi. Breathing appears symmetric and easy. Speaking in full sentences. ABD: Normoactive sounds, soft, non-tender, non-distended. No rebound or guarding. No costovertebral angle tenderness. EXT: Pulses 2+ bilaterally dorsalis pedis and radial. No lower extremity edema appreciated. SKIN: [place], dry, warm. Capillary refill <2sec. No rashes. NEURO: Alert and oriented x 3. Cranial nerves III-XII are intact. No focal deficits appreciated. Ambulates with a wheeled walker. Labs and Imaging: reviewed Assessment: 61yo W with a complex medical history including NIDDM, Hypertension, Hyperlipidemia, Seizure disorder, Schizophrenia, history of Compression fracture C7, Cervical and lumbar spondylosis w/prior referral to neurology and pain management, CKD who was recently admitted to the [facility] for psychosis with paranoid delusions, and auditory hallucinations and while the team was planning a transfer to long- term psych care, needed a STAT transfer to neuro spine at [facility] for back with with MRI demonstrating L4-L5 a combination of anterolisthesis, broad-based disc bulge, and facet hypertrophy causing moderate to severe canal narrowing with crowding of the cauda equina as well as severe bilateral foraminal narrowing with compression of the bilateral L4 nerve root, and was deemed without need for urgent surgery and instead placed in a back brace and now readmitted for persisting psychosis. Schizophrenia w/ cristofer psychosis Being managed in the inpatient mental health unit by psychiatry 2. Hypothyroidism Continue levothyroxine 3. Hypertension Continue lisinopril 4. Chronic back pain Continue pregabalin and added PRN tramadol 50 q6h PRN -To continue back brace while awake, PT was already consulted for use directions 5. Hyperlipidemia Continue atorvastatin 6. Dysuria: -will order UA/UCx now DVT ppx: ambulatory Vital Signs Vital Signs Date Time Temp Pulse Resp B/P (MAP) Pulse Ox O2 Delivery O2 Flow Rate FiO2 08/18/21 09:25 92 141/72 08/18/21 07:10 98.4 20 97 Room Air Laboratory Data Microbiology Microbiology 08/18/21 Respiratory Virus Panel (PCR) (IVY) - Final, Complete Home Medications Scheduled Amlodipine Besylate (Amlodipine Besylate) 10 Mg Tablet, 10 MG PO DAILY for . Aspirin (Aspirin EC) 81 Mg Tab, 81 MG PO DAILY for . Atorvastatin Calcium (Atorvastatin Calcium) 10 Mg Tablet, 10 MG PO QHS for . Cholecalciferol (Vitamin D3) (Vitamin D3) 1,000 Unit Tablet, 2,000 UNITS PO DAILY for . Docusate Sodium (Docusate Sodium) 100 Mg Tab, 100 MG PO DAILY for . Ferrous Sulfate (Ferrous Sulfate) 325 Mg Tablet.dr, 325 MG PO DAILY for . Haloperidol (Haloperidol) 10 Mg Tablet, 10 MG PO BID for . Levofloxacin (Levofloxacin) 500 Mg Tablet, 500 MG PO DAILY for . Levothyroxine Sodium (Synthroid) 25 Mcg Tablet, 25 MCG PO DAILY for . Lisinopril (Lisinopril) 5 Mg Tablet, 5 MG PO DAILY for . Pregabalin (Pregabalin) 100 Mg Capsule, 100 MG PO BID for . Psyllium Husk (with Sugar) (Metamucil Powder) 575 Gm Powder, 1 PKT PO DAILY for . MIX IN WATER Sertraline Hcl (Zoloft) 100 Mg Tablet, 200 MG PO DAILY for . Trazodone HCl (Trazodone HCl) 50 Mg Tablet, 50 MG PO QHS for . Trihexyphenidyl HCl (Trihexyphenidyl HCl) 2 Mg Tablet, 2 MG PO QHS for . Vitamin E (Dl,Tocopheryl Acet) (Vitamin E) 180 Mg (400 Unit) Capsule, 400 UNITS PO DAILY for . Miscellaneous Medications [Patient Comment] , for . MED REC COMPLETED VIA PREVIOUS DISCHARGE PAPERWORK (08/13/21) Allergies Coded Allergies: Penicillins (Verified Allergy, Unknown, rash/hives, 05/21/20) Sulfa (Sulfonamide Antibiotics) (Verified Allergy, Unknown, n/v, 05/21/20) "I get deathly ill, I feel like I'm dying." fluoxetine (Verified Allergy, Unknown, SI, 05/21/20) thioridazine (Verified Allergy, Unknown, 05/21/20) valproic acid (Verified Allergy, Unknown, SEDATION, 05/21/20) A-FIB/CHADSVASC A-FIB History Current/History of A-Fib/PAF?: No Current PO Anticoag Therapy: No Age/Risk Factor Scoring CHADSVASC: CHADSVASC Response (Comments) Value Age Risk Factor Age < 65 years old 0 Gender Risk Factor Female 1 Hx of CHF No 0 Hx of HTN No 0 Hx of Stroke/TIA/or VTE No 0 Hx of Diabetes No 0 Hx of Vascular Disease No 0 Total 1 Treatment Treatment ordered: NONE Reason Anticoagulant not given: Not indicated/[id number] MILDRED OLMOS MD Aug 18, 2021 15:21
[2021-08-19] MEDS ORDERED: PERCOCET 5MG/325MG TAB PO ONE (08:30)
--- NOTE | 2021-08-19 09:22 | REPVR ---
PROCEDURE INFORMATION: Exam: XR Bilateral Hips Exam date and time: 08/19/2021 6:58 AM Age: 61 years old Clinical indication: Other: Fall TECHNIQUE: Imaging protocol: XR bilateral hips. Views: 2 views of hips with pelvis when performed. COMPARISON: CR Hip, Ap,Lat LEFT 07/13/2021 2:23 AM FINDINGS: Bones/joints: Unremarkable. No acute fracture. Soft tissues: Unremarkable. IMPRESSION: No acute findings. Electronically signed by: Weston St On 08/19/2021 09:21:53 AM
[2021-08-19] MEDS: DOCUSATE SODIUM 100MG CAPSULE PO SCH (10:48)
[2021-08-19] MEDS: SERTRALINE 100 MG TAB PO SCH (10:48)
[2021-08-19] MEDS: MIRALAX *UNIT DOSE* 17GM PACKET PO SCH (10:48)
[2021-08-19] MEDS: ASPIRIN 81MG ENTERIC TABLET PO SCH (10:48)
[2021-08-19] MEDS: VITAMIN D 1,000 INTERNATIONAL UNITS TABLET PO SCH (10:48)
[2021-08-19] MEDS: PREGABALIN 100 MG CAP (LYRICA) PO SCH ×2 (10:48→19:56)
[2021-08-19] MEDS: FERROUS SULFATE 325MG TAB PO SCH (10:49)
[2021-08-19] MEDS: lisinopriL 5 MG TAB PO SCH (10:50)
[2021-08-19] MEDS: VITAMIN E 400 INTERNATIONAL UNITS CAP PO SCH (10:53)
--- NOTE | 2021-08-19 13:28 | IPNPDOC ---
Text Note Date of Service The patient was seen on 08/19/21. NOTE Subjective: -Fell last night, has chronic back pain and some R hip pain Objective: Physical Examination: GEN: Well-nourished, well developed. No acute distress. Alert and oriented x 3. HEENT: Normocephalic, atraumatic. Pupils are equal, round, and reactive to light. Extraocular movements are intact. Sclera are anicteric. Conjunctiva without injection. Moist mucous membranes. Dentition poor. Neck: supple, trachea midline. No lymphadenopathy or thyromegaly appreciated. CHEST: Regular rate and rhythm, +S1, +S2 LUNGS: Clear to auscultation bilaterally. No wheezes, rales, or rhonchi. Breathing appears symmetric and easy. Speaking in full sentences. ABD: Normoactive sounds, soft, non-tender, non-distended. No rebound or guarding. No costovertebral angle tenderness. EXT: Pulses 2+ bilaterally dorsalis pedis and radial. No lower extremity edema appreciated. NEURO: Alert and oriented x 3. Cranial nerves III-XII are intact. No focal deficits appreciated. Ambulating with a 4 wheeled walker. Labs and Imaging: reviewed 08/19: bilateral hip Xrays: Bones/joints: Unremarkable. No acute fracture. Soft tissues: Unremarkable. IMPRESSION: No acute findings. Assessment: 61yo W with a complex medical history including NIDDM, Hypertension, Hyperlipidemia, Seizure disorder, Schizophrenia, history of Compression fracture C7, Cervical and lumbar spondylosis w/prior referral to neurology and pain m anagement, CKD who was recently admitted to the [facility] for psychosis with paranoid delusions, and auditory hallucinations and while the team was planning a transfer to long- term psych care, needed a STAT transfer to neuro spine at [facility] for back with with MRI demonstrating L4-L5 a combination of anterolisthesis, broad-based disc bulge, and facet hypertrophy causing moderate to severe canal narrowing with crowding of the cauda equina as well as severe bilateral foraminal narrowing with compression of the bilateral L4 nerve root, and was deemed without need for urgent surgery and instead placed in a back brace and now readmitted for persisting psychosis. 1. Schizophrenia w/ cristofer psychosis Being managed in the inpatient mental health unit by psychiatry 2. Hypothyroidism Continue levothyroxine 3. Hypertension Continue lisinopril 4. Chronic back pain Continue pregabalin and added PRN tramadol 50 q6h PRN -To continue back brace while awake, PT was already consulted for use directions 5. Hyperlipidemia Continue atorvastatin 6. Dysuria: -Asked nursing to please collect the UA/UCx I ordered yesterday 7. mechanical fall -xrays of hips were negative for acute fracture -PT/OT evaluation DVT ppx: ambulatory VS,Fishbone, I+O VS, Fishbone, I+O Vital Signs Date Time Temp Pulse Resp B/P (MAP) Pulse Ox O2 Delivery O2 Flow Rate FiO2 08/19/21 06:28 98.5 104 16 144/82 (102) 97 Room Air I&O- Last 24 Hours up to 6 AM 08/19/21 05:59 Intake Total 240 ml Balance 240 ml MILDRED OLMOS MD Aug 19, 2021 07:38
[2021-08-19] MEDS: MOM 30ML SUSPENSION UDC PO PRN (14:15)
--- NOTE | 2021-08-19 14:42 | MHIPN ---
[facility] PROGRESS NOTE DATE: 08/19/2021 This is a video assessment. She is seen in the presence of staff. She is in the inpatient unit, psychiatry. I am at home. CHIEF COMPLAINT: Feels pain. SUBJECTIVE: Seen for followup. Indicates has been experiencing pain in the back. Has spinal stenosis. Apparently had fallen earlier in the morning, per staff. This was unwitnessed. Has Tramadol for pain. Has been taking it. Hospitalist is aware as well. She feels that she managed to sleep a bit last night. Appetite fair. Denies suicidal thoughts or intents. MENTAL STATUS EXAMINATION: She is lying in bed, cooperative, initially mild discomfort, but during the bulk of the assessment she appeared to be in mild distress because of the pain. She is coherent. Affect is restricted in range, but it shows reactivity. She at present denies any suicidal thoughts or intents. I could not detect any delusions at present. Judgment and insight remain poor. ASSESSMENT: Schizoaffective disorder. PLAN: Continue current care, observations, and optimize pain management. Hospitalist aware. The patient is on Tramadol as needed. She is to continue with the sertraline as at present. Further recommendations to be made depending on the clinical picture.
[2021-08-19 16:12] VITALS: BP 108/56
[2021-08-19] MEDS: traZODone 50 MG TAB PO SCH (19:56)
[2021-08-19] MEDS: ATORVASTATIN 10 MG TAB PO SCH (19:56)
[2021-08-20] MEDS: ACETAMINOPHEN TAB 650MG DOSE (2X325MG) PO PRN (03:01)
[2021-08-20] MEDS: LEVOTHYROXINE 25MCG TABLET (0.025MG) PO SCH (05:46)
[2021-08-20] MEDS: traMADol 50 MG TAB PO PRN ×3 (05:47→21:52)
[2021-08-20 06:22] VITALS: BP 154/80
[2021-08-20] MEDS: MOM 30ML SUSPENSION UDC PO PRN (06:24)
[2021-08-20] MEDS: ASPIRIN 81MG ENTERIC TABLET PO SCH (08:08)
[2021-08-20] MEDS: VITAMIN E 400 INTERNATIONAL UNITS CAP PO SCH (08:08)
[2021-08-20] MEDS: SERTRALINE 100 MG TAB PO SCH (08:09)
[2021-08-20] MEDS: VITAMIN D 1,000 INTERNATIONAL UNITS TABLET PO SCH (08:09)
[2021-08-20] MEDS: FERROUS SULFATE 325MG TAB PO SCH (08:09)
[2021-08-20] MEDS: DOCUSATE SODIUM 100MG CAPSULE PO SCH (08:09)
[2021-08-20] MEDS: PREGABALIN 100 MG CAP (LYRICA) PO SCH ×2 (08:09→21:51)
[2021-08-20] MEDS: MIRALAX *UNIT DOSE* 17GM PACKET PO SCH (08:09)
[2021-08-20] MEDS: lisinopriL 5 MG TAB PO SCH (08:09)
[2021-08-20 16:21] VITALS: BP 143/70
[2021-08-20] MEDS: traZODone 50 MG TAB PO SCH (21:51)
[2021-08-20] MEDS: ATORVASTATIN 10 MG TAB PO SCH (21:51)
[2021-08-21] MEDS: ACETAMINOPHEN TAB 650MG DOSE (2X325MG) PO PRN (01:17)
[2021-08-21] MEDS: LEVOTHYROXINE 25MCG TABLET (0.025MG) PO SCH (05:24)
[2021-08-21 06:21] VITALS: BP 164/74
[2021-08-21] MEDS: PREGABALIN 100 MG CAP (LYRICA) PO SCH ×2 (08:10→20:27)
[2021-08-21] MEDS: DOCUSATE SODIUM 100MG CAPSULE PO SCH (08:10)
[2021-08-21] MEDS: ASPIRIN 81MG ENTERIC TABLET PO SCH (08:10)
[2021-08-21] MEDS: SERTRALINE 100 MG TAB PO SCH (08:11)
[2021-08-21] MEDS: lisinopriL 5 MG TAB PO SCH (08:11)
[2021-08-21] MEDS: VITAMIN D 1,000 INTERNATIONAL UNITS TABLET PO SCH (08:11)
[2021-08-21] MEDS: FERROUS SULFATE 325MG TAB PO SCH (08:11)
[2021-08-21] MEDS: VITAMIN E 400 INTERNATIONAL UNITS CAP PO SCH (08:12)
[2021-08-21] MEDS: MIRALAX *UNIT DOSE* 17GM PACKET PO SCH (08:12)
[2021-08-21] MEDS: traMADol 50 MG TAB PO PRN ×2 (08:14→14:48)
--- NOTE | 2021-08-21 15:43 | MHIPNPDOC ---
[facility] Progress Note Progress Note DATE OF SERVICE: 08/21/21 HISTORY:Patient is a 61 -year-old , female, who is returning to [facility] after she was discharge to [facility] for L4-L5 broad-based disc bulge that was causing severe cannel narrowing with crowding of the cauda equina. Patient had been hospitalized on this unit from /08/2021 for schizoaffective disorder following her report that she was having suicidal thoughts. Patient had been living at [facility] and had been noncompliant with her medications and had decompensated. She had called the ambulance reporting that she was depressed and upon the EMS finding her they had found multiple razors in her room and she had admitted to having suicidality. During her hospitalization from July 11 she had had numerous falls, was observed as psychotic and the treatment team was attempting to transfer the patient to [facility]. And at the time she was converted to a two-physician consent had in administrative hearing in which she stated that she was feeling the worst that she ever felt mentally. And she had agreed to be transferred to [facility]. Please see history and physical dated July 12, 2021 for detailed evaluation. VITAL SIGNS: See below. NEW TEST RESULTS: none CURRENT MEDICATIONS: See below. Response to Medications: Patient's mood and affect has stabilized. She denies any side effects and adverse problems of her medications. While patient continues to report depression much of this depression is due to her pain which she continues to report MENTAL STATUS EXAMINATION: Patient is a 61 -year-old , female, who is returning to [facility] after she was discharge to [facility] for L4-L5 broad- based disc bulge that was causing severe cannel narrowing with crowding of the cauda equina. Patient had been hospitalized on this unit from /08/23 21 for schizoaffective disorder following her report that she was having suicidal thoughts. General Appearance: unkempt, ds/not appear stated age (She appears older), hospital scrubs/clothing Build: overweight Demeanor: mildly irritable, guarded Eye Contact: improved eye contact Activity: anxious Behavior: cooperative Speech: clear Mood: depressed, anxious Affect: less constricted, less flat Thought Process: logical/linear Thought Content (Delusions): none reported Thought Content (Other): preoccupied, guarded Thought Content (Aggressive): none reported Perception (Hallucinations): auditory hallucinations Perception (Other): none reported Cognition (Impairment of): none reported Cognition(Intelligence Est.): other (Below average) Oriented: Awake, Alert, Oriented times three Insight: improving Judgment: improving Psychosis: Psychotic Perceptions DIAGNOSES: Schizoaffective disorder bipolar type Cannabis use disorder by history, ASSESSMENT: Reports continued depression. "Anxiety and depression is high because I am in so much pain. I don't think I can go [place] [facility], I need surgery." Reports mild voices, no commands hallucinations. Pain level is 10/10 and is observed with facial grimacing today, yelling out in pain during ambulation. Patient had recent fall and was seen at [facility] for possible caudal equine syndrome. She is maintaining eye contact more. States she has suicidal ideations because of her pain but no intent or planning. Although she reports depression and anxiety at this time, much of it is due to her increasing pain. She was seen by Hospitalist over the weekend who was going to consult pain management according to RN working over the weekend. MANAGEMENT PLAN: Continue medications and supportive therapies, Depakote level tomorrow in the a.m. - Treatment team to transfer to [facility] TIME SPENT: 25 minutes. Vital Signs Vital Signs Date Time Temp Pulse Resp B/P (MAP) Pulse Ox O2 Delivery O2 Flow Rate FiO2 08/21/21 09:00 80 16 08/21/21 08:14 Room Air 08/21/21 08:11 164/74 08/21/21 06:21 98.6 98 Current Medications Current Medications Medications (Trade) Dose Ordered Sig/Floyd Route PRN Reason Start Time Stop Time Status Last Admin Dose Admin Acetaminophen (Tylenol Tab) 650 mg Q6HP PRN PO HEADACHE or MILD DISCOMFORT 08/17/21 20:00 08/21/21 01:17 Al Hydrox/Mg Hydrox/Simethicone (Mylanta) 30 ml Q4HP PRN PO HEARTBURN/INDIGESTION 08/17/21 20:00 Amlodipine Besylate (Norvasc) 10 mg DAILY PO 08/18/21 09:00 08/21/21 08:11 Aspirin (Ecotrin) 81 mg DAILY PO 08/18/21 09:00 08/21/21 08:10 Atorvastatin Calcium (Lipitor) 10 mg QHS PO 08/18/21 21:00 08/20/21 21:51 Docusate Sodium (Colace) 100 mg DAILY PO 08/18/21 09:00 08/21/21 08:10 Ferrous Sulfate (Ferrous Sulfate) 325 mg DAILY PO 08/18/21 09:00 08/21/21 08:11 Haloperidol (Haldol) 10 mg BID PO 08/18/21 09:00 08/21/21 08:12 Haloperidol (Haldol) 10 mg Q6HP PRN PO ANXIETY/AGITATION 08/17/21 22:30 08/21/21 01:16 Home Med (Home Med List Complete!) ASDIRECTED XX 08/18/21 05:40 08/18/21 05:58 DC Levothyroxine Sodium (Synthroid) 25 mcg DAILY@06 PO 08/18/21 06:00 08/21/21 05:24 Lisinopril (Prinivil) 5 mg DAILY PO 08/18/21 09:00 08/21/21 08:11 Magnesium Hydroxide (Milk Of Magnesia) 30 ml DAILYPRN PRN PO CONSTIPATION 08/17/21 20:00 08/20/21 06:24 Polyethylene Glycol (Miralax) 1 pkt DAILY PO 08/18/21 09:00 08/19/21 10:48 Pregabalin (Lyrica) 100 mg BID PO 08/18/21 09:00 08/21/21 08:10 Psyllium Hydrophilic Mucilloid (Metamucil) 1 pkt DAILY PO 08/18/21 09:00 08/18/21 10:30 DC Sertraline HCl (Zoloft) 200 mg DAILY PO 08/18/21 09:00 08/21/21 08:11 Tramadol HCl (Ultram) 50 mg Q6HP PRN PO SEVERE PAIN (PS 8-10) 08/18/21 14:45 08/21/21 08:14 Trazodone HCl (Desyrel) 50 mg QHS PO 08/18/21 21:00 08/20/21 21:51 Trazodone HCl (Desyrel) 50 mg QHSP PRN PO INSOMNIA 08/17/21 20:00 Cancel Vitamin D (Vitamin D) 2,000 units DAILY PO 08/18/21 09:00 08/21/21 08:11 Vitamin E (Vitamin E) 400 units DAILY PO 08/18/21 09:00 08/21/21 08:12 Allergies Coded Allergies: Penicillins (Verified Allergy, Unknown, rash/hives, 05/21/20) Sulfa (Sulfonamide Antibiotics) (Verified Allergy, Unknown, n/v, 05/21/20) "I get deathly ill, I feel like I'm dying." fluoxetine (Verified Allergy, Unknown, SI, 05/21/20) thioridazine (Verified Allergy, Unknown, 05/21/20) valproic acid (Verified Allergy, Unknown, SEDATION, 05/21/20) RAJEEV LOONEY NP Aug 21, 2021 11:25
--- NOTE | 2021-08-21 17:00 | MHIPN ---
[facility] PROGRESS NOTE DATE: 08/20/2021 VITAL SIGNS: Blood pressure 143/70, pulse 85, temperature 98.7. This is a video assessment. She is seen in the presence of staff in the inpatient unit, and I am at home. CHIEF COMPLAINT: Feels a bit tired. SUBJECTIVE: Seen for followup. Indicates has been feeling a bit tired. Says has pain but that it may not be as intense possibly as yesterday. She has slept a bit. Says occasionally the pain disturbs her. Appetite fair. Denies any suicidal thoughts or intents. MENTAL STATUS EXAMINATION: Neat, cooperative. Coherent. No agitation. No psychomotor retardation. Affect is restricted in range. Denies any suicidal thoughts or intents. No homicidal ideas or intents. No overt delusions elicited. Judgment and insight compromised. ASSESSMENT: Schizoaffective disorder. PLAN: Continue current care, including optimizing pain management. Hospitalist involved. Continue sertraline. She will be seeing the assigned clinicians tomorrow, and further recommendations will be made.
[2021-08-21 17:41] VITALS: BP 132/65
[2021-08-21] MEDS: ATORVASTATIN 10 MG TAB PO SCH (20:27)
[2021-08-21] MEDS: traZODone 50 MG TAB PO SCH (20:27)
[2021-08-22] MEDS: traMADol 50 MG TAB PO PRN (04:38)
[2021-08-22] MEDS: LEVOTHYROXINE 25MCG TABLET (0.025MG) PO SCH (05:58)
[2021-08-22 06:38] VITALS: BP 139/67
[2021-08-22] MEDS: ASPIRIN 81MG ENTERIC TABLET PO SCH (08:52)
[2021-08-22] MEDS: ACETAMINOPHEN TAB 650MG DOSE (2X325MG) PO PRN (08:52)
[2021-08-22] MEDS: PREGABALIN 100 MG CAP (LYRICA) PO SCH ×2 (08:52→20:45)
[2021-08-22] MEDS: FERROUS SULFATE 325MG TAB PO SCH (08:52)
[2021-08-22] MEDS: VITAMIN E 400 INTERNATIONAL UNITS CAP PO SCH (08:53)
[2021-08-22] MEDS: lisinopriL 5 MG TAB PO SCH (08:54)
[2021-08-22] MEDS: VITAMIN D 1,000 INTERNATIONAL UNITS TABLET PO SCH (08:54)
[2021-08-22] MEDS: SERTRALINE 100 MG TAB PO SCH (08:54)
[2021-08-22] MEDS: DOCUSATE SODIUM 100MG CAPSULE PO SCH (08:55)
[2021-08-22] MEDS: MIRALAX *UNIT DOSE* 17GM PACKET PO SCH (08:55)
[2021-08-22 16:05] VITALS: BP 200/90
[2021-08-22] MEDS ORDERED: hydrOXYzine 50 MG TAB PO STA (16:25)
--- NOTE | 2021-08-22 16:33 | MHIPNPDOC ---
[facility] Progress Note Progress Note DATE OF SERVICE: 08/22/21 HISTORY: Patient is a 61 -year-old , female, who is returning to [facility] [place] after she was discharge to [facility] for L4-L5 broad-based disc bulge that was causing severe cannel narrowing with crowding of the cauda equina. Patient had been hospitalized on this unit from /08/2021 for schizoaffective disorder following her report that she was having suicidal thoughts. Patient had been living at [facility] and had been noncompliant with her medications and had decompensated. She had call ed the ambulance reporting that she was depressed and upon the EMS finding her they had found multiple razors in her room and she had admitted to having suicidality. During her hospitalization from July 11 she had had numerous falls, was observed as psychotic and the treatment team was attempting to transfer the patient to [facility]. And at the time she was converted to a two-physician consent had in administrative hearing in which she stated that she was feeling the worst that she ever felt mentally. And she had agreed to be transferred to [facility]. Please see history and physical dated July 12, 2021 for detailed evaluation. VITAL SIGNS: See below. NEW TEST RESULTS: none CURRENT MEDICATIONS: See below. RESPONSE TO MEDICATIONS: Patient denies any side effects or adverse reactions. Reports that her medications are effective although she continues to have intermittent auditory hallucinations. She reports depression but this is due to her pain. ILLNESS EDUCATION: Reviewed with patient the treatment plan. She appears to disagree with it at this time has disagreed with the transfer to [facility]. She vacillates between wanting to go and wanting to return to [employer]. Response to Medications: Patient's mood and affect has stabilized. She denies any side effects and adverse problems of her medications. While patient continues to report depression much of this depression is due to her pain which she continues to report MENTAL STATUS EXAMINATION: Patient is a 61 -year-old , female, who is returning to [facility] [place] after she was discharge to [facility] for L4-L5 broad- based disc bulge that was causing severe cannel narrowing with crowding of the cauda equina. Patient had been hospitalized on this unit from /08/2021 for schizoaffective disorder following her report that she was having suicidal thoughts. General Appearance: unkempt, ds/not appear stated age (She appears older), hospital scrubs/clothing Build: overweight Demeanor: guarded, fearful Eye Contact: improved eye contact Activity: anxious Behavior: cooperative Speech: clear Mood: depressed, anxious Affect: less constricted, less flat Thought Process: logical/linear Thought Content (Delusions): none reported Thought Content (Other): preoccupied, guarded Thought Content (Aggressive): none reported Perception (Hallucinations): auditory hallucinations Perception (Other): none reported Cognition (Impairment of): none reported Cognition(Intelligence Est.): other (Below average) Oriented: Awake, Alert, Oriented times three Insight: improving Judgment: improving Psychosis: None observed DIAGNOSES: Schizoaffective disorder bipolar type Cannabis use disorder by history, ASSESSMENT: Reports continued depression and anxiety. Denies any current suicidal ideation, although reports that her anxiety is high due to pain level. Appears that her psychiatric symptoms are proportionate to her pain level. She denied auditory hallucinations but reported yesterday that they do come and go. They are not currently command hallucinations. And she states that she often has fleeting suicidal ideations but denied it in the interview. She is observed in a wheelchair with her back brace, she is requesting something for her anxiety, she is mildly tearful. MANAGEMENT PLAN: Continue medications and supportive therapies, Depakote level tomorrow in the a.m. - Treatment team to transfer to [facility] TIME SPENT: 25 minutes. Vital Signs Vital Signs Date Time Temp Pulse Resp B/P (MAP) Pulse Ox O2 Delivery O2 Flow Rate FiO2 08/22/21 08:54 139/67 08/22/21 08:54 91 08/22/21 06:38 98.8 18 95 Room Air Current Medications Current Medications Medications (Trade) Dose Ordered Sig/Floyd Route PRN Reason Start Time Stop Time Status Last Admin Dose Admin Acetaminophen (Tylenol Tab) 650 mg Q6HP PRN PO HEADACHE or MILD DISCOMFORT 08/17/21 20:00 08/22/21 08:52 Al Hydrox/Mg Hydrox/Simethicone (Mylanta) 30 ml Q4HP PRN PO HEARTBURN/INDIGESTION 08/17/21 20:00 Amlodipine Besylate (Norvasc) 10 mg DAILY PO 08/18/21 09:00 08/22/21 08:54 Aspirin (Ecotrin) 81 mg DAILY PO 08/18/21 09:00 08/22/21 08:52 Atorvastatin Calcium (Lipitor) 10 mg QHS PO 08/18/21 21:00 08/21/21 20:27 Docusate Sodium (Colace) 100 mg DAILY PO 08/18/21 09:00 08/21/21 08:10 Ferrous Sulfate (Ferrous Sulfate) 325 mg DAILY PO 08/18/21 09:00 08/22/21 08:52 Haloperidol (Haldol) 10 mg BID PO 08/18/21 09:00 08/22/21 08:53 Haloperidol (Haldol) 10 mg Q6HP PRN PO ANXIETY/AGITATION 08/17/21 22:30 08/21/21 01:16 Home Med (Home Med List Complete!) ASDIRECTED XX 08/18/21 05:40 08/18/21 05:58 DC Levothyroxine Sodium (Synthroid) 25 mcg DAILY@06 PO 08/18/21 06:00 08/22/21 05:58 Lisinopril (Prinivil) 5 mg DAILY PO 08/18/21 09:00 08/22/21 08:54 Magnesium Hydroxide (Milk Of Magnesia) 30 ml DAILYPRN PRN PO CONSTIPATION 08/17/21 20:00 08/20/21 06:24 Polyethylene Glycol (Miralax) 1 pkt DAILY PO 08/18/21 09:00 08/19/21 10:48 Pregabalin (Lyrica) 100 mg BID PO 08/18/21 09:00 08/22/21 08:52 Psyllium Hydrophilic Mucilloid (Metamucil) 1 pkt DAILY PO 08/18/21 09:00 08/18/21 10:30 DC Sertraline HCl (Zoloft) 200 mg DAILY PO 08/18/21 09:00 08/22/21 08:54 Tramadol HCl (Ultram) 50 mg Q6HP PRN PO SEVERE PAIN (PS 8-10) 08/18/21 14:45 08/22/21 04:38 Trazodone HCl (Desyrel) 50 mg QHS PO 08/18/21 21:00 08/21/21 20:27 Trazodone HCl (Desyrel) 50 mg QHSP PRN PO INSOMNIA 08/17/21 20:00 Cancel Vitamin D (Vitamin D) 2,000 units DAILY PO 08/18/21 09:00 08/22/21 08:54 Vitamin E (Vitamin E) 400 units DAILY PO 08/18/21 09:00 08/22/21 08:53 Allergies Coded Allergies: Penicillins (Verified Allergy, Unknown, rash/hives, 05/21/20) Sulfa (Sulfonamide Antibiotics) (Verified Allergy, Unknown, n/v, 05/21/20) "I get deathly ill, I feel like I'm dying." fluoxetine (Verified Allergy, Unknown, SI, 05/21/20) thioridazine (Verified Allergy, Unknown, 05/21/20) valproic acid (Verified Allergy, Unknown, SEDATION, 05/21/20) RAJEEV LOONEY NP Aug 22, 2021 11:27
[2021-08-22] MEDS ORDERED: BENZTROPINE 2 MG TAB PO ONE (18:00)
--- NOTE | 2021-08-22 18:57 | IPNPDOC ---
Subjective Date Seen The patient was seen on 08/22/21. Subjective Chief Complaint/HPI Ms. Bustamante is a 61 year old female with NIDDM, hypertension, spinal canal stenosis, and schizophrenia who is in the inpatient mental health unit for psychosis and suicidal ideation. Patient recently had a fall today and reque sted hospitalist to reevaluate. Patient tells me that her walker is broken and the walker rolled out and away from her grasp which caused her to fall. She landed on the right side. Has pain and tenderness around the right hip and femur. No tenderness in the right knee. There is ecchymosis in the right lateral leg. Back pain is about the same and unchanged after the fall. Patient reports urinary incontinence, and denies fecal incontinence. She tells me this was similar prior to the fall. Otherwise denies any fever or chills, chest pain, dyspnea, or abdominal pain. She tells me she had dysuria yesterday. Objective Physical Examination General Exam: Positive: Alert, Cooperative Eye Exam: Positive: EOMI; Negative: Sclera icteric ENT Exam: Positive: Atraumatic Neck Exam: Positive: Supple Chest Exam: Positive: Clear to auscultation; Negative: Rales, Rhonchi, Wheezing Heart Exam: Positive: Rate Normal, Regular Rhythm Abdomen Exam: Positive: Normal bowel sounds, Soft; Negative: Tenderness Skin Exam: Positive: Other skin issue (Ecchymosis on right lateral leg) Neuro Exam: Positive: Cranial Nerves 3-12 NL Psych Exam: Positive: Mental status NL, Mood NL Assessment /Plan Plan/VTE VTE Prophylaxis Ordered?: No ([facility], ambulatory) Plan 1. Right hip pain status post fall She is still able to ambulate We will obtain x-ray of the hip and CT of the lumbosacral spine Patient initially refused as she has to lie flat for the images We will add on Percocet to see if it would help with the pain 2. Dysuria Patient recently had a UTI We will recheck a UA 3. Psychosis Management per inpatient mental health unit Thank you for consulting us. We will sign off at this time. If there is any further questions or concerns, please do not hesitate to contact us. VS, I&O, 24H, Fishbone Vital Signs/I&O Vital Signs Date Time Temp Pulse Resp B/P (MAP) Pulse Ox O2 Delivery O2 Flow Rate FiO2 08/22/21 16:05 98.7 18 200/90 (126) Room Air 08/22/21 08:54 91 08/22/21 06:38 95 Laboratory Data 24H LABS Laboratory Tests 2 08/22/21 16:02: Bedside Glucose (Misc Panel) 130H Microbiology Microbiology 08/18/21 Respiratory Virus Panel (PCR) (IVY) - Final, Complete RYLAND BRADFORD DO Aug 22, 2021 18:57
[2021-08-22 20:26] VITALS: BP 152/88
[2021-08-22] MEDS: traZODone 50 MG TAB PO SCH (20:45)
[2021-08-22] MEDS: ATORVASTATIN 10 MG TAB PO SCH (20:45)
[2021-08-22] MEDS: PERCOCET 5MG/325MG TAB PO PRN (20:46)
[2021-08-23] MEDS: traMADol 50 MG TAB PO PRN ×2 (02:28→21:29)
[2021-08-23] MEDS: LEVOTHYROXINE 25MCG TABLET (0.025MG) PO SCH (05:22)
[2021-08-23 08:33] VITALS: BP 152/88
[2021-08-23 08:34] VITALS: BP 152/88
[2021-08-23] MEDS: MIRALAX *UNIT DOSE* 17GM PACKET PO SCH (09:00)
[2021-08-23] MEDS: VITAMIN D 1,000 INTERNATIONAL UNITS TABLET PO SCH (09:10)
[2021-08-23] MEDS: DOCUSATE SODIUM 100MG CAPSULE PO SCH (09:10)
[2021-08-23] MEDS: ASPIRIN 81MG ENTERIC TABLET PO SCH (09:10)
[2021-08-23] MEDS: FERROUS SULFATE 325MG TAB PO SCH (09:10)
[2021-08-23] MEDS: SERTRALINE 100 MG TAB PO SCH (09:10)
[2021-08-23] MEDS: VITAMIN E 400 INTERNATIONAL UNITS CAP PO SCH (09:10)
[2021-08-23] MEDS: PREGABALIN 100 MG CAP (LYRICA) PO SCH ×2 (09:10→20:02)
[2021-08-23] MEDS: lisinopriL 5 MG TAB PO SCH (09:11)
--- NOTE | 2021-08-23 12:57 | MHIPNPDOC ---
[facility] Progress Note Progress Note DATE OF SERVICE: 08/23/21 HISTORY: 61-year-old, with a history of depression and psychosis admitted for persistent depression with suicidal ideation. Penny reports that she has intense pain today, she was seen laying in bed. She also reports that her depression seems unchanged and feels that the medications have made little difference. She remains agreeable with the idea to transfer her to [facility]. She endorses that her pain also is unrelieved by the adjustment that made. VITAL SIGNS: See below. NEW TEST RESULTS: None. CURRENT MEDICATIONS: See below. MENTAL STATUS EXAMINATION: Patient is a 61-year old female, who is dressed in hospital clothing, laying in bed. Speech: Is clear, spontaneous, with regular rate, rhythm, and volume. Language skills are intact. Thought processes including: Linear, logical, goal-directed. Thought content: Endorses high levels of depression, focused mostly on her pain and trying to live with the experience of this. Abstract reasoning, and computation: Intact. Description of associations: Linear. Description of abnormal or psychotic thoughts: Denies SI, HI, AVH at present, no paranoia or delusions elicited. Judgment: Fair. Insight: Fair. Orientation: X3. Recent and remote memory: Intact. Attention span and concentration: Intact. Mood: "Depressed". Affect: Dysphoric, stable, congruent with stated mood. DIAGNOSES: Schizoaffective disorder, bipolar type Cannabis use disorder ASSESSMENT: Plan continues to show minimal improvement in symptoms. She continues to complain of ongoing pain despite adjustments regimen made by medical staff. We will continue to work on managing her symptoms best we can, with additional changes to her medications. She may benefit as well from dual pharmacotherapy for management of her depression. At present the current plan is to transfer to [facility] for extended care and recovery. MANAGEMENT PLAN: Continue current medications as prescribed, primary team will continue to work on transferring patient to [facility] when a bed is available. TIME SPENT: 15 minutes. Vital Signs Vital Signs Date Time Temp Pulse Resp B/P (MAP) Pulse Ox O2 Delivery O2 Flow Rate FiO2 08/23/21 09:11 141/65 08/23/21 08:34 98.8 91 18 95 Room Air Laboratory Data 24H Labs Laboratory Tests 2 08/22/21 16:02: Bedside Glucose (Misc Panel) 130H 08/23/21 08:21: Ammonia 10, Valproic Acid (Depakene) Level < 3.0L Current Medications Current Medications Medications (Trade) Dose Ordered Sig/Floyd Route PRN Reason Start Time Stop Time Status Last Admin Dose Admin Acetaminophen (Tylenol Tab) 650 mg Q6HP PRN PO HEADACHE or MILD DISCOMFORT 08/17/21 20:00 08/22/21 08:52 Al Hydrox/Mg Hydrox/Simethicone (Mylanta) 30 ml Q4HP PRN PO HEARTBURN/INDIGESTION 08/17/21 20:00 Amlodipine Besylate (Norvasc) 10 mg DAILY PO 08/18/21 09:00 08/23/21 09:11 Aspirin (Ecotrin) 81 mg DAILY PO 08/18/21 09:00 08/23/21 09:10 Atorvastatin Calcium (Lipitor) 10 mg QHS PO 08/18/21 21:00 08/22/21 20:45 Docusate Sodium (Colace) 100 mg DAILY PO 08/18/21 09:00 08/23/21 09:10 Ferrous Sulfate (Ferrous Sulfate) 325 mg DAILY PO 08/18/21 09:00 08/23/21 09:10 Haloperidol (Haldol) 10 mg BID PO 08/18/21 09:00 08/23/21 09:10 Haloperidol (Haldol) 10 mg Q6HP PRN PO ANXIETY/AGITATION 08/17/21 22:30 08/21/21 01:16 Home Med (Home Med List Complete!) ASDIRECTED XX 08/18/21 05:40 08/18/21 05:58 DC Hydroxyzine HCl (Atarax) 100 mg STAT STAT PO 08/22/21 16:25 08/22/21 16:26 DC 08/22/21 16:29 Levothyroxine Sodium (Synthroid) 25 mcg DAILY@06 PO 08/18/21 06:00 08/23/21 05:22 Lisinopril (Prinivil) 5 mg DAILY PO 08/18/21 09:00 08/23/21 09:11 Magnesium Hydroxide (Milk Of Magnesia) 30 ml DAILYPRN PRN PO CONSTIPATION 08/17/21 20:00 08/20/21 06:24 Oxycodone/ Acetaminophen (Percocet 5mg/ 325mg Tablet) 1 tab Q6HP PRN PO MODERATE PAIN (PS 5-7) 08/22/21 18:20 08/22/21 20:46 Polyethylene Glycol (Miralax) 1 pkt DAILY PO 08/18/21 09:00 08/19/21 10:48 Pregabalin (Lyrica) 100 mg BID PO 08/18/21 09:00 08/23/21 09:10 Psyllium Hydrophilic Mucilloid (Metamucil) 1 pkt DAILY PO 08/18/21 09:00 08/18/21 10:30 DC Sertraline HCl (Zoloft) 200 mg DAILY PO 08/18/21 09:00 08/23/21 09:10 Tramadol HCl (Ultram) 50 mg Q6HP PRN PO SEVERE PAIN (PS 8-10) 08/18/21 14:45 08/23/21 02:28 Trazodone HCl (Desyrel) 50 mg QHS PO 08/18/21 21:00 08/22/21 20:45 Trazodone HCl (Desyrel) 50 mg QHSP PRN PO INSOMNIA 08/17/21 20:00 Cancel Vitamin D (Vitamin D) 2,000 units DAILY PO 08/18/21 09:00 08/23/21 09:10 Vitamin E (Vitamin E) 400 units DAILY PO 08/18/21 09:00 08/23/21 09:10 Allergies Coded Allergies: Penicillins (Verified Allergy, Unknown, rash/hives, 05/21/20) Sulfa (Sulfonamide Antibiotics) (Verified Allergy, Unknown, n/v, 05/21/20) "I get deathly ill, I feel like I'm dying." fluoxetine (Verified Allergy, Unknown, SI, 05/21/20) thioridazine (Verified Allergy, Unknown, 05/21/20) valproic acid (Verified Allergy, Unknown, SEDATION, 05/21/20) PHOEBE ARANA MD Aug 23, 2021 11:06
[2021-08-23 17:27] VITALS: BP 125/57
[2021-08-23] MEDS: ATORVASTATIN 10 MG TAB PO SCH (20:02)
[2021-08-23] MEDS: traZODone 50 MG TAB PO SCH (20:02)
[2021-08-24] MEDS: LEVOTHYROXINE 25MCG TABLET (0.025MG) PO SCH (04:36)
[2021-08-24] MEDS: PERCOCET 5MG/325MG TAB PO PRN ×2 (04:37→19:50)
[2021-08-24 06:00] VITALS: BP 158/90
[2021-08-24] MEDS: VITAMIN E 400 INTERNATIONAL UNITS CAP PO SCH (08:31)
[2021-08-24] MEDS: DOCUSATE SODIUM 100MG CAPSULE PO SCH (08:31)
[2021-08-24] MEDS: ASPIRIN 81MG ENTERIC TABLET PO SCH (08:32)
[2021-08-24] MEDS: SERTRALINE 100 MG TAB PO SCH (08:32)
[2021-08-24] MEDS: lisinopriL 5 MG TAB PO SCH (08:32)
[2021-08-24] MEDS: PREGABALIN 100 MG CAP (LYRICA) PO SCH ×2 (08:33→19:49)
[2021-08-24] MEDS: FERROUS SULFATE 325MG TAB PO SCH (08:33)
[2021-08-24] MEDS: VITAMIN D 1,000 INTERNATIONAL UNITS TABLET PO SCH (08:33)
[2021-08-24] MEDS: MIRALAX *UNIT DOSE* 17GM PACKET PO SCH (08:34)
--- NOTE | 2021-08-24 15:14 | MHIPNPDOC ---
[facility] Progress Note Progress Note DATE OF SERVICE: 08/24/21 HISTORY: Patient is a 61-year-old single, disabled, female who was initially admitted to the hospital in July 2021 for depression and suicidal thoughts. She had stopped taking her medications at her residence of [facility] and she had reported that she had intrusive suicidal ideations. Hospitalized for her depression patient had fallen in was sent to [facility] for caudal equine syndrome she returned but did not have surgery. Since then she had reported depression and anxiety to her increased pain. VITAL SIGNS: See below. NEW TEST RESULTS: None CURRENT MEDICATIONS: See below. RESPONSE TO MEDICATIONS: Patient is not relieved with pain medications, reports continued depression due to not having her pain comfort met. It is difficult to manage her depression medications to titrate to therapeutic levels as she admits that her depression is proportionate to her pain level. ILLNESS EDUCATION: MENTAL STATUS EXAMINATION: Patient is a 61-year-old single, disabled, female who was initially admitted to the hospital in July 2021 for depression and suicidal thoughts. Speech: Is slow rate, low tone and volume and makes minimal responses Language skills are intact Thought processes including: linear and goal oriented Thought content: Reports continued depression depression and anxiety related to back pain. Reports fleeting suicidal ideation but no planning or intent, she denied homicidal ideation, planning or intent. Abstract reasoning, and computation: fair Description of associations: denies, none observed Description of abnormal or psychotic thoughts: Reports auditory hallucinations at times, they are not command in nature Judgment: fair Insight: fair Orientation: alert and oriented to person, place, time and situation Recent and remote memory: intact Attention span and concentration: Fair Language: expansive Fund of knowledge: average Mood: Depressed mood Affect: Constricted and anxious DIAGNOSES: Schizoaffective ASSESSMENT: Jennifer reports continued depression. Upon further investigation she reports that her depression is directly related to her pain level and that it is proportionate to whether or not she is able to get relief from the pain. She has improved in is more stable at this time. She denies that she would intenti onally harm herself or that she is planning to kill herself. She does however have fleeting ideations of self-harm because of the pain. Patient is no longer psychotic, is not delusional, is not making bizarre statements, she appears to be more stable. Physical and Occupational Therapy have documented that they feel patient would improve at rehab. strategic planner is working on placing the patient in appropriate facility to address her physical needs. MANAGEMENT PLAN: Continue all home medications and supportive therapy patient is in agreement to go to rehab reviewed with patient that she is improving in that staff feels that she has been doing very well despite her reports of depression that is directly related to her pain level. TIME SPENT: 25 minutes. Vital Signs Vital Signs Date Time Temp Pulse Resp B/P (MAP) Pulse Ox O2 Delivery O2 Flow Rate FiO2 08/24/21 08:33 102 158/90 08/24/21 06:00 99.2 18 97 Room Air Current Medications Current Medications Medications (Trade) Dose Ordered Sig/Floyd Route PRN Reason Start Time Stop Time Status Last Admin Dose Admin Acetaminophen (Tylenol Tab) 650 mg Q6HP PRN PO HEADACHE or MILD DISCOMFORT 08/17/21 20:00 08/22/21 08:52 Al Hydrox/Mg Hydrox/Simethicone (Mylanta) 30 ml Q4HP PRN PO HEARTBURN/INDIGESTION 08/17/21 20:00 Amlodipine Besylate (Norvasc) 10 mg DAILY PO 08/18/21 09:00 08/24/21 08:33 Aspirin (Ecotrin) 81 mg DAILY PO 08/18/21 09:00 08/24/21 08:32 Atorvastatin Calcium (Lipitor) 10 mg QHS PO 08/18/21 21:00 08/23/21 20:02 Docusate Sodium (Colace) 100 mg DAILY PO 08/18/21 09:00 08/24/21 08:31 Ferrous Sulfate (Ferrous Sulfate) 325 mg DAILY PO 08/18/21 09:00 08/24/21 08:33 Haloperidol (Haldol) 10 mg BID PO 08/18/21 09:00 08/24/21 08:32 Haloperidol (Haldol) 10 mg Q6HP PRN PO ANXIETY/AGITATION 08/17/21 22:30 08/21/21 01:16 Home Med (Home Med List Complete!) ASDIRECTED XX 08/18/21 05:40 08/18/21 05:58 DC Hydroxyzine HCl (Atarax) 100 mg STAT STAT PO 08/22/21 16:25 08/22/21 16:26 DC 08/22/21 16:29 Levothyroxine Sodium (Synthroid) 25 mcg DAILY@06 PO 08/18/21 06:00 08/24/21 04:36 Lisinopril (Prinivil) 5 mg DAILY PO 08/18/21 09:00 08/24/21 08:32 Magnesium Hydroxide (Milk Of Magnesia) 30 ml DAILYPRN PRN PO CONSTIPATION 08/17/21 20:00 08/20/21 06:24 Oxycodone/ Acetaminophen (Percocet 5mg/ 325mg Tablet) 1 tab Q6HP PRN PO MODERATE PAIN (PS 5-7) 08/22/21 18:20 08/24/21 04:37 Polyethylene Glycol (Miralax) 1 pkt DAILY PO 08/18/21 09:00 08/19/21 10:48 Pregabalin (Lyrica) 100 mg BID PO 08/18/21 09:00 08/24/21 08:33 Psyllium Hydrophilic Mucilloid (Metamucil) 1 pkt DAILY PO 08/18/21 09:00 08/18/21 10:30 DC Sertraline HCl (Zoloft) 200 mg DAILY PO 08/18/21 09:00 08/24/21 08:32 Tramadol HCl (Ultram) 50 mg Q6HP PRN PO SEVERE PAIN (PS 8-10) 08/18/21 14:45 08/23/21 21:29 Trazodone HCl (Desyrel) 50 mg QHS PO 08/18/21 21:00 08/23/21 20:02 Trazodone HCl (Desyrel) 50 mg QHSP PRN PO INSOMNIA 08/17/21 20:00 Cancel Vitamin D (Vitamin D) 2,000 units DAILY PO 08/18/21 09:00 08/24/21 08:33 Vitamin E (Vitamin E) 400 units DAILY PO 08/18/21 09:00 08/24/21 08:31 Allergies Coded Allergies: Penicillins (Verified Allergy, Unknown, rash/hives, 05/21/20) Sulfa (Sulfonamide Antibiotics) (Verified Allergy, Unknown, n/v, 05/21/20) "I get deathly ill, I feel like I'm dying." fluoxetine (Verified Allergy, Unknown, SI, 05/21/20) thioridazine (Verified Allergy, Unknown, 05/21/20) valproic acid (Verified Allergy, Unknown, SEDATION, 05/21/20) RAJEEV LOONEY NP Aug 24, 2021 15:14
[2021-08-24 17:51] VITALS: BP 160/84
[2021-08-24] MEDS: ATORVASTATIN 10 MG TAB PO SCH (19:49)
[2021-08-24] MEDS: traZODone 50 MG TAB PO SCH (19:50)
[2021-08-25] MEDS: traMADol 50 MG TAB PO PRN ×3 (04:06→22:22)
[2021-08-25] MEDS: LEVOTHYROXINE 25MCG TABLET (0.025MG) PO SCH (06:05)
[2021-08-25 06:40] VITALS: BP 146/88
[2021-08-25] MEDS: MIRALAX *UNIT DOSE* 17GM PACKET PO SCH (08:36)
[2021-08-25] MEDS: FERROUS SULFATE 325MG TAB PO SCH (09:40)
[2021-08-25] MEDS: PREGABALIN 100 MG CAP (LYRICA) PO SCH ×2 (09:40→20:20)
[2021-08-25] MEDS: VITAMIN D 1,000 INTERNATIONAL UNITS TABLET PO SCH (09:40)
[2021-08-25] MEDS: DOCUSATE SODIUM 100MG CAPSULE PO SCH (09:40)
[2021-08-25] MEDS: ASPIRIN 81MG ENTERIC TABLET PO SCH (09:41)
[2021-08-25] MEDS: SERTRALINE 100 MG TAB PO SCH (09:41)
[2021-08-25] MEDS: lisinopriL 5 MG TAB PO SCH (09:41)
[2021-08-25] MEDS: VITAMIN E 400 INTERNATIONAL UNITS CAP PO SCH (09:42)
[2021-08-25] MEDS: ACETAMINOPHEN TAB 650MG DOSE (2X325MG) PO PRN (09:42)
--- NOTE | 2021-08-25 14:24 | MHIPNPDOC ---
[facility] Progress Note Progress Note DATE OF SERVICE: 08/25/21 HISTORY: Patient is a 61-year-old single, disabled, female who was initially admitted to the hospital in July 2021 for depression and suicidal thoughts. She had stopped taking her medications at her [place] of [place] and she had reported that she had intrusive suicidal ideations. Hospitalized for her depression patient had fallen in was sent to [facility] for caudal equine syndrome she returned but did not have surgery. Since then she had reported depression and anxiety to her increased pain. VITAL SIGNS: See below. NEW TEST RESULTS: None CURRENT MEDICATIONS: See below. RESPONSE TO MEDICATIONS: Patient is not relieved with pain medications, reports continued depression due to not having her pain comfort met. It is difficult to manage her depression medications to titrate to therapeutic levels as she admits that her depression is proportionate to her pain level. ILLNESS EDUCATION: MENTAL STATUS EXAMINATION: Patient is a 61-year-old single, disabled, female who was initially admitted to the hospital in July 2021 for depression and suicidal thoughts. Speech: Is slow rate, low tone and volume and makes minimal responses Language skills are intact Thought processes including: linear and goal oriented Thought content: Reports decrease in depression and reports continued anxiety. Denies suicidal ideation and no planning or intent, she denied homicidal christy ation, planning or intent. Abstract reasoning, and computation: fair Description of associations: denies, none observed Description of abnormal or psychotic thoughts: Reports auditory hallucinations at times, they are not command in nature Judgment: fair Insight: fair Orientation: alert and oriented to person, place, time and situation Recent and remote memory: intact Attention span and concentration: Fair Language: expansive Fund of knowledge: average Mood: improved mood Affect: mildly brighter affect DIAGNOSES: Schizoaffective ASSESSMENT: Jennifer reports a decreased in depression. She continues to have anxiety due to pain. States that she is wanting to go to Rehab. She denied thoughts of self harm, she denies any intention or planning to harm herself. She was observed walking with her walker wearing a back brace. Her affect is mildly brighter today. She stated that she is motivated to go to rehab states that she feels that going to rehab would help improve her pain and mobility. She stated, "I feel better. My depression is down but my anxiety is up. " 1630 - Spoke with [facility], confirmed that Patient is going to go to Rehab, the referrals have been sent. Marilu from [facility] verbalized understanding. MANAGEMENT PLAN: Continue all home medications and supportive therapy patient is in agreement to go to rehab reviewed with patient that she is improving in that staff feels that she has been doing very well despite her reports of depression that is directly related to her pain level. TIME SPENT: 25 minutes. Vital Signs Vital Signs Date Time Temp Pulse Resp B/P (MAP) Pulse Ox O2 Delivery O2 Flow Rate FiO2 08/25/21 09:42 88 146/88 08/25/21 06:40 98.1 18 96 Room Air Current Medications Current Medications Medications (Trade) Dose Ordered Sig/Floyd Route PRN Reason Start Time Stop Time Status Last Admin Dose Admin Acetaminophen (Tylenol Tab) 650 mg Q6HP PRN PO HEADACHE or MILD DISCOMFORT 08/17/21 20:00 08/25/21 09:42 Al Hydrox/Mg Hydrox/Simethicone (Mylanta) 30 ml Q4HP PRN PO HEARTBURN/INDIGESTION 08/17/21 20:00 Amlodipine Besylate (Norvasc) 10 mg DAILY PO 08/18/21 09:00 08/25/21 09:42 Aspirin (Ecotrin) 81 mg DAILY PO 08/18/21 09:00 08/25/21 09:41 Atorvastatin Calcium (Lipitor) 10 mg QHS PO 08/18/21 21:00 08/24/21 19:49 Docusate Sodium (Colace) 100 mg DAILY PO 08/18/21 09:00 08/25/21 09:40 Ferrous Sulfate (Ferrous Sulfate) 325 mg DAILY PO 08/18/21 09:00 08/25/21 09:40 Haloperidol (Haldol) 10 mg BID PO 08/18/21 09:00 08/25/21 09:41 Haloperidol (Haldol) 10 mg Q6HP PRN PO ANXIETY/AGITATION 08/17/21 22:30 08/21/21 01:16 Home Med (Home Med List Complete!) ASDIRECTED XX 08/18/21 05:40 08/18/21 05:58 DC Hydroxyzine HCl (Atarax) 100 mg STAT STAT PO 08/22/21 16:25 08/22/21 16:26 DC 08/22/21 16:29 Levothyroxine Sodium (Synthroid) 25 mcg DAILY@06 PO 08/18/21 06:00 08/25/21 06:05 Lisinopril (Prinivil) 5 mg DAILY PO 08/18/21 09:00 08/25/21 09:41 Magnesium Hydroxide (Milk Of Magnesia) 30 ml DAILYPRN PRN PO CONSTIPATION 08/17/21 20:00 08/20/21 06:24 Oxycodone/ Acetaminophen (Percocet 5mg/ 325mg Tablet) 1 tab Q6HP PRN PO MODERATE PAIN (PS 5-7) 08/22/21 18:20 08/24/21 19:50 Polyethylene Glycol (Miralax) 1 pkt DAILY PO 08/18/21 09:00 08/19/21 10:48 Pregabalin (Lyrica) 100 mg BID PO 08/18/21 09:00 08/25/21 09:40 Psyllium Hydrophilic Mucilloid (Metamucil) 1 pkt DAILY PO 08/18/21 09:00 08/18/21 10:30 DC Sertraline HCl (Zoloft) 200 mg DAILY PO 08/18/21 09:00 08/25/21 09:41 Tramadol HCl (Ultram) 50 mg Q6HP PRN PO SEVERE PAIN (PS 8-10) 08/18/21 14:45 08/25/21 04:06 Trazodone HCl (Desyrel) 50 mg QHS PO 08/18/21 21:00 08/24/21 19:50 Trazodone HCl (Desyrel) 50 mg QHSP PRN PO INSOMNIA 08/17/21 20:00 Cancel Vitamin D (Vitamin D) 2,000 units DAILY PO 08/18/21 09:00 08/25/21 09:40 Vitamin E (Vitamin E) 400 units DAILY PO 08/18/21 09:00 08/25/21 09:42 Allergies Coded Allergies: Penicillins (Verified Allergy, Unknown, rash/hives, 05/21/20) Sulfa (Sulfonamide Antibiotics) (Verified Allergy, Unknown, n/v, 05/21/20) "I get deathly ill, I feel like I'm dying." fluoxetine (Verified Allergy, Unknown, SI, 05/21/20) thioridazine (Verified Allergy, Unknown, 05/21/20) valproic acid (Verified Allergy, Unknown, SEDATION, 05/21/20) RAJEEV LOONEY NP Aug 25, 2021 13:43
[2021-08-25 18:51] VITALS: BP 144/67
[2021-08-25] MEDS: BENZTROPINE 1 MG TAB PO SCH (20:20)
[2021-08-25] MEDS: ATORVASTATIN 10 MG TAB PO SCH (20:20)
[2021-08-25] MEDS: traZODone 50 MG TAB PO SCH (20:21)
[2021-08-26] MEDS: ACETAMINOPHEN TAB 650MG DOSE (2X325MG) PO PRN ×2 (00:03→06:23)
[2021-08-26] MEDS: LEVOTHYROXINE 25MCG TABLET (0.025MG) PO SCH (06:19)
[2021-08-26 07:23] VITALS: BP_SYST 121; BP_SYST 159; BP_DIAS 58; BP_DIAS 75
[2021-08-26] MEDS: MIRALAX *UNIT DOSE* 17GM PACKET PO SCH (08:05)
[2021-08-26] MEDS: FERROUS SULFATE 325MG TAB PO SCH (08:09)
[2021-08-26] MEDS: DOCUSATE SODIUM 100MG CAPSULE PO SCH (08:09)
[2021-08-26] MEDS: ASPIRIN 81MG ENTERIC TABLET PO SCH (08:09)
[2021-08-26] MEDS: BENZTROPINE 1 MG TAB PO SCH ×2 (08:09→22:20)
[2021-08-26] MEDS: PREGABALIN 100 MG CAP (LYRICA) PO SCH ×2 (08:09→22:21)
[2021-08-26] MEDS: lisinopriL 5 MG TAB PO SCH (08:09)
[2021-08-26] MEDS: SERTRALINE 100 MG TAB PO SCH (08:10)
[2021-08-26] MEDS: VITAMIN D 1,000 INTERNATIONAL UNITS TABLET PO SCH (08:10)
[2021-08-26] MEDS: traMADol 50 MG TAB PO PRN ×2 (08:12→22:24)
[2021-08-26] MEDS: VITAMIN E 400 INTERNATIONAL UNITS CAP PO SCH (10:55)
[2021-08-26 18:34] VITALS: BP 130/64
[2021-08-26] MEDS: ATORVASTATIN 10 MG TAB PO SCH (22:20)
[2021-08-26] MEDS: traZODone 50 MG TAB PO SCH (22:20)
[2021-08-27] MEDS: traMADol 50 MG TAB PO PRN ×2 (05:45→18:32)
[2021-08-27] MEDS: LEVOTHYROXINE 25MCG TABLET (0.025MG) PO SCH (05:45)
[2021-08-27 07:02] VITALS: BP 156/80
[2021-08-27] MEDS: DOCUSATE SODIUM 100MG CAPSULE PO SCH (08:43)
[2021-08-27] MEDS: PREGABALIN 100 MG CAP (LYRICA) PO SCH ×2 (08:43→20:21)
[2021-08-27] MEDS: BENZTROPINE 1 MG TAB PO SCH ×2 (08:43→20:22)
[2021-08-27] MEDS: ASPIRIN 81MG ENTERIC TABLET PO SCH (08:43)
[2021-08-27] MEDS: VITAMIN E 400 INTERNATIONAL UNITS CAP PO SCH (08:44)
[2021-08-27] MEDS: VITAMIN D 1,000 INTERNATIONAL UNITS TABLET PO SCH (08:44)
[2021-08-27] MEDS: SERTRALINE 100 MG TAB PO SCH (08:44)
[2021-08-27] MEDS: lisinopriL 5 MG TAB PO SCH (08:44)
[2021-08-27] MEDS: FERROUS SULFATE 325MG TAB PO SCH (08:44)
[2021-08-27] MEDS: PERCOCET 5MG/325MG TAB PO PRN ×2 (08:45→21:41)
[2021-08-27] MEDS: MIRALAX *UNIT DOSE* 17GM PACKET PO SCH (09:00)
[2021-08-27 18:20] VITALS: BP 118/72
[2021-08-27] MEDS: ATORVASTATIN 10 MG TAB PO SCH (20:21)
[2021-08-27] MEDS: traZODone 50 MG TAB PO SCH (20:22)
[2021-08-28] MEDS: traMADol 50 MG TAB PO PRN ×2 (01:17→07:50)
[2021-08-28] MEDS: LEVOTHYROXINE 25MCG TABLET (0.025MG) PO SCH (06:14)
[2021-08-28] MEDS: PERCOCET 5MG/325MG TAB PO PRN ×2 (06:15→13:22)
[2021-08-28] MEDS: MIRALAX *UNIT DOSE* 17GM PACKET PO SCH (07:48)
[2021-08-28] MEDS: VITAMIN D 1,000 INTERNATIONAL UNITS TABLET PO SCH (07:48)
[2021-08-28 07:49] VITALS: BP 156/80
[2021-08-28] MEDS: VITAMIN E 400 INTERNATIONAL UNITS CAP PO SCH (07:49)
[2021-08-28] MEDS: DOCUSATE SODIUM 100MG CAPSULE PO SCH (07:49)
[2021-08-28] MEDS: lisinopriL 5 MG TAB PO SCH (07:49)
[2021-08-28] MEDS: FERROUS SULFATE 325MG TAB PO SCH (07:49)
[2021-08-28] MEDS: SERTRALINE 100 MG TAB PO SCH (07:49)
[2021-08-28] MEDS: BENZTROPINE 1 MG TAB PO SCH (07:50)
[2021-08-28] MEDS: ASPIRIN 81MG ENTERIC TABLET PO SCH (07:50)
[2021-08-28] MEDS: PREGABALIN 100 MG CAP (LYRICA) PO SCH (07:50)
[2021-08-28] MEDS ORDERED: PERCOCET PO (12:08)
[2021-08-28] MEDS ORDERED: MILK400S19 PO (12:32)
[2021-08-28] MEDS ORDERED: MYLASSUD FT (12:32)
[2021-08-28] MEDS ORDERED: HALO10TA2 PO (12:32)
[2021-08-28] MEDS ORDERED: ACET32TAB PO ×2 (12:32)
[2021-08-28] MEDS ORDERED: NOXI1TAB PO (12:32)
--- NOTE | 2021-08-28 14:34 | MHDSPDOC ---
[facility] Discharge Summary Discharge Summary DATE OF ADMISSION: Aug 17, 2021 at 20:22 DATE OF DISCHARGE: August 28, 2021 at 1417 DISCHARGE DIAGNOSES: Schizoaffective Disorder, bipolar type Cannabis use disorder by history, REASON FOR ADMISSION: Patient is a 61 -year-old , female, who is returning to [facility] after she was discharge from [facility] on 08/13/21 to [facility] for L4-L5 broad-based disc bulge that was c ausing severe cannel narrowing with crowding of the cauda equina. Patient had been hospitalized on this unit from 110/08/2021 for schizoaffective disorder following her report that she was having suicidal thoughts. Hospitalized for her depression patient had fallen and was sent to [facility] for caudal equine syndrome she returned but did not have surgery. Since then she had reported depression and anxiety due to her increased pain. During her hospitalization from July 11 she had numerous falls, was observed as psychotic and the treatment team was attempting to transfer the patient to [facility]. And at the time she was converted to a two- physician consent had in administrative hearing in which she stated that she was feeling the worst that she ever felt mentally. And she had agreed to be transferred to [facility]. Patient had been living at [facility] and had been noncompliant with her medications and had decompensated. She had called the ambulance reporting that she was depressed and upon the EMS finding her they had found multiple razors in her room and she had admitted to having suicidality. Please see history and physical dated July 12, 2021 for detailed evaluation. VITAL SIGNS: See below. CONSULTANTS INVOLVED: See Medical H + P by Hospitalist TREATMENT AND PROGRESS ON THE UNIT: Patient was admitted to the [facility] on a legal status was afforded the following treatment modalities: 1) Individual Therapy 2) Group Therapy 3) Medication Management 4) Milieu Therapy 5) Safe Environment HOSPITAL COURSE: Patient was admitted to [facility] on a legal status. Pt found medications beneficial and tolerated them well. Patient's medications were resumed upon her return from [facility]. She continued to have pain but was depressed due to severe pain. Her mood, anxiety, and intrusive thoughts improved with treatment. She was ambulatory with the exception of one day where she was given a wheelchair for ambulation and this made her very dependent and she was reported feeling helpless. Walker was returned to her and she improved. Pt attended groups daily during stay. Pts symptoms improved with treatment. On day of discharge pt. denied depression, anxiety, insomnia, SI/HI, hallucinations, delusions. Pt was discharged home to Medical to wait for Rehab bed. Pt felt safe for discharge from [facility]. DISCHARGE ASSESSMENT: In today's interview, patient is alert and oriented, pt.s dress is appropriate. Hygiene and grooming is well-kempt. Smiles on approach and is pleasant and engaged in the interview. Denies depression and anxiety. Denies suicidal and homicidal ideation, planning or intent. Denies and is not observed with zach, psychotic symptoms of delusions, bizarre thinking, obsessions, paranoia, ruminations illogical thoughts, flight of ideas or having poor insight and judgement. Reinforced with patient need to abstain from alcohol and drugs. At discharge patient has normal mentation, declines further hospitalization on a voluntary status and meets criteria for discharge today. Discussed indications of medications, potential benefits and risks, alternatives (including no treatment) and questions were encouraged and answered. Patient encouraged to return to hospital if symptoms worsen or change and encouraged to call unit if he/she/they needs to speak to provider for questions regarding medications or care. MENTAL STATUS EXAMINATION ON DISCHARGE: Patient is a 61 -year-old , female, who is returning to [facility] after she was discharge from [facility] on 08/13/21 to [facility] for L4-L5 broad-based disc bulge that was causing severe cannel narrowing with crowding of the cauda equina. Patient had been living at [facility] and had been noncompliant with her medications and had decompensated. She had called the ambulance reporting that she was depressed and upon the EMS finding her they had found multiple razors in her room and she had admitted to having suicidality Speech: Is fluid, conversant, normal rate, tone and volume Language skills are intact Thought processes including: linear and goal oriented Thought content: reports decreased depression and anxiety, but often reports that this continued depression and anxiety is due to pain level. Denies suicidal/homicidal ideation, planning or intent. Abstract reasoning, and computation: fair Description of associations: denies, none observed Description of abnormal or psychotic thoughts: denies, none observed. Judgment: fair Insight: fair Orientation: alert and oriented to person, place, time and situation Recent and remote memory: intact Attention span and concentration: good Language: expansive Fund of knowledge: average Mood: Neutral Mood Affect: reactive Suicide Risk Assessment: 1) Does the patient wish to be ? No 2) Since your admission, have you had any actual thought of killing yourself? No 3) Since your admission, have you been thinking about how you might do this? No 4) Since your admission, have you had these thoughts and had some intention of acting on them? No 5) Since your admission, have you started to work out or worked out the details of how to kill yourself? No 5A) Do you intent to carry out this plan? No and NA 6) Have you ever done anything, started anything, or prepared to do anything with any intent to ? No 6A) How long since your admission did you do any of these? NA MEDICATIONS ON DISCHARGE: See Medication Reconciliation PLAN/FOLLOWUP ARRANGEMENTS: Patient is awaiting a bed to Rehab a facility The amount of time spent in the coordination of care for this patient was approximately 25 minutes. ETOH/Disorder Med Rx ETOH/DRUG DISORDER RX: N/A Vital Signs/I&Os Vital Signs Date Time Temp Pulse Resp B/P (MAP) Pulse Ox O2 Delivery O2 Flow Rate FiO2 08/28/21 13:22 16 08/28/21 07:49 18 156/80 08/28/21 06:45 97 Room Air 08/27/21 18:20 100.3 Laboratory Data Microbiology Microbiology 08/18/21 Respiratory Virus Panel (PCR) (IVY) - Final, Complete Medications Scheduled Amlodipine Besylate (Amlodipine Besylate) 10 Mg Tablet, 10 MG PO DAILY for ., (Reported) Aspirin (Aspirin EC) 81 Mg Tab, 81 MG PO DAILY for ., (Reported) Atorvastatin Calcium (Atorvastatin Calcium) 10 Mg Tablet, 10 MG PO QHS for ., (Reported) Cholecalciferol (Vitamin D3) (Vitamin D3) 1,000 Unit Tablet, 2,000 UNITS PO DAILY for ., (Reported) Docusate Sodium (Docusate Sodium) 100 Mg Tab, 100 MG PO DAILY for ., (Reported) Ferrous Sulfate (Ferrous Sulfate) 325 Mg Tablet.dr, 325 MG PO DAILY for ., (Reported) Haloperidol (Haloperidol) 10 Mg Tablet, 10 MG PO BID for ., (Reported) Levofloxacin (Levofloxacin) 500 Mg Tablet, 500 MG PO DAILY for ., (Reported) Levothyroxine Sodium (Synthroid) 25 Mcg Tablet, 25 MCG PO DAILY for ., (Reported) Lisinopril (Lisinopril) 5 Mg Tablet, 5 MG PO DAILY for ., (Reported) Pregabalin (Pregabalin) 100 Mg Capsule, 100 MG PO BID for ., (Reported) Psyllium Husk (with Sugar) (Metamucil Powder) 575 Gm Powder, 1 PKT PO DAILY for ., (Reported) MIX IN WATER Sertraline Hcl (Zoloft) 100 Mg Tablet, 200 MG PO DAILY for ., (Reported) Trazodone HCl (Trazodone HCl) 50 Mg Tablet, 50 MG PO QHS for ., (Reported) Vitamin D3/Folic Acid (Noxifol-D3 2,500 Unit-1 mg Tab) 2,500 Unit Tablet, 1 TAB PO DAILY for deficiency for 30 Days, #30 (Reported) Vitamin E (Dl,Tocopheryl Acet) (Vitamin E) 180 Mg (400 Unit) Capsule, 400 UNITS PO DAILY for ., (Reported) Scheduled PRN Acetaminophen (Acetaminophen) 325 Mg Tablet, 325 MG PO Q4-6HP PRN for pain or fever for 24 Days, #100 (Reported) Acetaminophen (Acetaminophen) 325 Mg Tablet, 325 MG PO Q6HP PRN for PAIN LEVEL 1-5, (Reported) Aluminum/Magnesium/Simeth (Mag-Al Plus Suspension) 30 Ml Oral.susp, 30 ML FT Q4HP PRN for CONSTIPATION, (Reported) Haloperidol (Haloperidol) 10 Mg Tablet, 10 MG PO Q6HP PRN for ANXIETY/AGITATION for 30 Days, #30 (Reported) Magnesium Hydroxide (Milk of Magnesia) 400 Mg/5 Ml Oral.susp, 400 MG PO DAILYPRN PRN for CONSTIPATION, (Reported) Oxycodone/Acetaminophen (Oxycodone-Acetaminophen 5-325) 1 Each Tablet, 1 TAB PO Q6HP PRN for PAIN LEVEL 5-7, (Reported) Allergies Coded Allergies: Penicillins (Verified Allergy, Unknown, rash/hives, 05/21/20) Sulfa (Sulfonamide Antibiotics) (Verified Allergy, Unknown, n/v, 05/21/20) "I get deathly ill, I feel like I'm dying." fluoxetine (Verified Allergy, Unknown, SI, 05/21/20) thioridazine (Verified Allergy, Unknown, 05/21/20) valproic acid (Verified Allergy, Unknown, SEDATION, 05/21/20) RAJEEV LOONEY NP Aug 28, 2021 14:18
== END 2021-08-28 14:29 | disposition other institution (70) | DRG 885 ==
LOC: M PSY 20:22
PROVIDERS: ADMIT Student in an Organized Health Care Education/Training Program; ATTEND Psychiatry & Neurology Psychiatry
DX: F25.0 Schizoaffective disorder, bipolar type (principal); R45.851 Suicidal ideations; Z91.14 Patient's other noncompliance with medication regimen; R29.6 Repeated falls; Z91.51 Personal history of suicidal behavior; K21.9 Gastro-esophageal reflux disease without esophagitis; N18.30 Chronic kidney disease, stage 3 unspecified; G40.909 Epilepsy, unspecified, not intractable, without status epilepticus; N32.81 Overactive bladder; E55.9 Vitamin D deficiency, unspecified; E11.9 Type 2 diabetes mellitus without complications; I12.9 Hypertensive chronic kidney disease with stage 1 through stage 4 chronic kidney disease, or unspecified chronic kidney disease; E78.5 Hyperlipidemia, unspecified; M47.893 Other spondylosis, cervicothoracic region; M47.895 Other spondylosis, thoracolumbar region; Z87.891 Personal history of nicotine dependence; F12.11 Cannabis abuse, in remission; Z62.810 Personal history of physical and sexual abuse in childhood; Z79.82 Long term (current) use of aspirin; Z79.899 Other long term (current) drug therapy; Z88.0 Allergy status to penicillin; Z88.2 Allergy status to sulfonamides; Z88.8 Allergy status to other drugs, medicaments and biological substances; S70.02XA Contusion of left hip, initial encounter; Y92.231 Patient bathroom in hospital as the place of occurrence of the external cause; W01.0XXA Fall on same level from slipping, tripping and stumbling without subsequent striking against object, initial encounter

== ENCOUNTER 2021-08-28 11:58 | Inpatient (IN) | payer MEDICARE, MEDICAID ==
[~2021-08-28] VITALS: Ht 166.4 cm; Wt 106.0 kg
[~2021-08-28 11:58] MED LIST changes: +PATIENT COMMENT
[2021-08-28] MEDS ORDERED: PERCOCET PO (12:08)
[2021-08-28] MEDS ORDERED: NOXI1TAB PO (12:32)
[2021-08-28] MEDS ORDERED: MILK400S19 PO (12:32)
[2021-08-28] MEDS ORDERED: HALO10TA2 PO (12:32)
[2021-08-28] MEDS ORDERED: ACET32TAB PO ×2 (12:32)
[2021-08-28] MEDS ORDERED: MYLASSUD FT (12:32)
[2021-08-28 14:30] VITALS: BP 141/71
[2021-08-28 15:28] LABS: HEMATOCRIT 36.8 % (36.0-47.0); HEMOGLOBIN 11.9 g/dl (12.0-15.5); MEAN CORPUSCULAR HEMOGLOBIN 28.7 pg (27.0-33.0); MEAN CORPUSCULAR HGB CONC 32.3 g/dl (32.0-36.5); MEAN CORPUSCULAR VOLUME 88.7 fl (80.0-96.0); PLATELET COUNT, AUTOMATED 319 10^3/uL (150-450); RED BLOOD COUNT 4.15 10^6/uL (4.00-5.40); WHITE BLOOD COUNT 12.3 10^3/uL (4.0-10.0)
[2021-08-28 15:37] LABS: INR 0.9; PROTHROMBIN TIME 12.5 SECONDS (12.7-14.5)
[2021-08-28 16:02] LABS: ALBUMIN 3.4 GM/DL (3.2-5.2); BILIRUBIN,TOTAL 0.2 MG/DL (0.2-1.0); CALCIUM LEVEL 9.7 MG/DL (8.8-10.2); CREATININE FOR GFR 1.12 MG/DL (0.55-1.30); GLOMERULAR FILTRATION RATE 52.8 (>45); POTASSIUM SERUM 4.7 MEQ/L (3.5-5.1); TOTAL PROTEIN 6.2 GM/DL (6.4-8.2)
[2021-08-28] MEDS ORDERED: HOME MED LIST COMPLETE! XX SCH (16:05)
[2021-08-28] MEDS: traMADol 50 MG TAB PO PRN (16:10)
[2021-08-28] MEDS: oxyCODONE 5MG TAB PO PRN (18:05)
[2021-08-28] MEDS ORDERED: MAALOX 30 ML SUSP *UDC PO PRN (18:15)
[2021-08-28 19:59] VITALS: BP 108/57
[2021-08-28] MEDS ORDERED: KETOROLAC 30 MG/ML 1ML VIAL IV ONE (20:10)
--- NOTE | 2021-08-28 20:11 | HPEPDOC ---
General Date of Admission Aug 28, 2021 at 14:49 Date of Service: Aug 28, 2021 Chief Complaint The patient is a 61-year-old female admitted with a reason for visit of Intactable Low Back Pain, Frequent Falls. History of Present Illness Ms. Bustamante is a 61-year-old female with NIDDM, hypertension, spinal canal stenosis, and schizophrenia who has been psychiatrically cleared for admission for intractable low back pain and lower extremity weakness. Patient has a long psychiatric admission. She was initially mated to psych on 07/11/2021. She initially went to the ER for back and leg pain. On the way to the ER, she told the paramedics that she was having suicidal thoughts. She was admitted to [facility]. While at [facility], she had severe psychosis, paranoia, and delusions. She was found to have a Morganella and Ecoli UTI which was treated with levofloxacin. Repeat urine culture on 08/09 was contaminated. She had a MRI which demonstrated moderate severe canal narrowing and crowding of the cauda equina. Orthopedic surgery recommended transfer for evaluation by spinal surgery. She was evaluated at [facility] and returned without any intervention. Today, she was psychiatrically cleared. When I saw the patient, she denied any fever/chills, chest pain, dyspnea, or abdominal pain. She reported dysuria. She had depression and anxiety, but it has improved since being in the [facility]. She said that her last suicidal ideation was this morning, but it was due to pain. I spoke with the psych provider, Yani Ocampo NP. Patient has done well the past week and has only express this in extreme pain. The psych provider has cleared her. I asked the psych provider will the patient need a sitter and the psych provider told me no. Patient will be admitted for pain control and rehab. ARU screen has been placed. Home Medications Scheduled Amlodipine Besylate (Amlodipine Besylate) 10 Mg Tablet, 10 MG PO DAILY for ., (Reported) Aspirin (Aspirin EC) 81 Mg Tab, 81 MG PO DAILY for ., (Reported) Atorvastatin Calcium (Atorvastatin Calcium) 10 Mg Tablet, 10 MG PO QHS for ., (Reported) Cholecalciferol (Vitamin D3) (Vitamin D3) 1,000 Unit Tablet, 2,000 UNITS PO DAILY for ., (Reported) Docusate Sodium (Docusate Sodium) 100 Mg Tab, 100 MG PO DAILY for ., (Reported) Ferrous Sulfate (Ferrous Sulfate) 325 Mg Tablet.dr, 325 MG PO DAILY for ., (Reported) Haloperidol (Haloperidol) 10 Mg Tablet, 10 MG PO BID for ., (Reported) Levofloxacin (Levofloxacin) 500 Mg Tablet, 500 MG PO DAILY for ., (Reported) Levothyroxine Sodium (Synthroid) 25 Mcg Tablet, 25 MCG PO DAILY for ., (Reported) Lisinopril (Lisinopril) 5 Mg Tablet, 5 MG PO DAILY for ., (Reported) Pregabalin (Pregabalin) 100 Mg Capsule, 100 MG PO BID for ., (Reported) Psyllium Husk (with Sugar) (Metamucil Powder) 575 Gm Powder, 1 PKT PO DAILY for ., (Reported) MIX IN WATER Sertraline Hcl (Zoloft) 100 Mg Tablet, 200 MG PO DAILY for ., (Reported) Trazodone HCl (Trazodone HCl) 50 Mg Tablet, 50 MG PO QHS for ., (Reported) Vitamin D3/Folic Acid (Noxifol-D3 2,500 Unit-1 mg Tab) 2,500 Unit Tablet, 1 TAB PO DAILY for deficiency, (Reported) Vitamin E (Dl,Tocopheryl Acet) (Vitamin E) 180 Mg (400 Unit) Capsule, 400 UNITS PO DAILY for ., (Reported) Scheduled PRN Acetaminophen (Acetaminophen) 325 Mg Tablet, 325 MG PO Q4-6HP PRN for pain or fever, (Reported) Acetaminophen (Acetaminophen) 325 Mg Tablet, 325 MG PO Q6HP PRN for PAIN LEVEL 1-5, (Reported) Aluminum/Magnesium/Simeth (Mag-Al Plus Suspension) 30 Ml Oral.susp, 30 ML FT Q4HP PRN for CONSTIPATION, (Reported) Haloperidol (Haloperidol) 10 Mg Tablet, 10 MG PO Q6HP PRN for ANXIETY/AGITATION, (Reported) Magnesium Hydroxide (Milk of Magnesia) 400 Mg/5 Ml Oral.susp, 400 MG PO DAILYPRN PRN for CONSTIPATION, (Reported) Oxycodone/Acetaminophen (Oxycodone-Acetaminophen 5-325) 1 Each Tablet, 1 TAB PO Q6HP PRN for PAIN LEVEL 5-7, (Reported) Allergies Coded Allergies: Penicillins (Verified Allergy, Unknown, rash/hives, 05/21/20) Sulfa (Sulfonamide Antibiotics) (Verified Allergy, Unknown, n/v, 05/21/20) "I get deathly ill, I feel like I'm dying." fluoxetine (Verified Allergy, Unknown, SI, 05/21/20) thioridazine (Verified Allergy, Unknown, 05/21/20) valproic acid (Verified Allergy, Unknown, SEDATION, 05/21/20) Past Medical History Medical History 1. Partially compensated communicating hydrocephalus 2. CKD stage II-III 3. GERD 4. Overactive bladder 5. Vitamin D deficiency 6. Lkc-ckjledc-sxygsldwk diabetes mellitus 7. Hypertension 8. Hyperlipidemia 9. Seizure disorder 10. Schizophrenia 11. Compression fracture C7 12. Cervical lumbar spondylosis Surgical History 1. Left ear surgery 2. Left kidney repair as a child Family History Father: in his 80s due to unknown medical problems Mother: in her 70s secondary to motor vehicle accident Social History * Smoker: former Smoker Alcohol: Denies Drugs: denies A-FIB/CHADSVASC A-FIB History Current/History of A-Fib/PAF?: No Review of Systems Constitutional: Denies: Chills, Fever Eyes: Denies: Vision change ENT: Denies: Sore Throat Skin: Denies: Rash Pulmonary: Denies: Dyspnea, Cough Cardiovascular: Denies: Chest Pain Gastrointestinal: Denies: Abdominal Pain Genitourinary: Reports: Dysuria Hematologic: Denies: Bruising Musculoskeletal: Reports: Back Pain Psych: Reports: Anxiety, Depression Physical Examination General Exam: Positive: Alert, Cooperative Eye Exam: Positive: EOMI; Negative: Sclera icteric ENT Exam: Positive: Atraumatic Neck Exam: Positive: Supple Chest Exam: Positive: Clear to auscultation; Negative: Rales, Rhonchi, Wheezing Heart Exam: Positive: Rate Normal, Regular Rhythm Abdomen Exam: Positive: Normal bowel sounds, Soft; Negative: Tenderness Neuro Exam: Positive: Normal Speech, Cranial Nerves 3-12 NL Psych Exam: Positive: Mental status NL, Mood NL Vital Signs Vital Signs Date Time Temp Pulse Resp B/P (MAP) Pulse Ox O2 Delivery O2 Flow Rate FiO2 08/28/21 18:35 18 08/28/21 14:30 98.4 82 141/71 (94) 99 Room Air Laboratory Data Labs 24H Laboratory Tests 2 08/28/21 15:21: Nucleated Red Blood Cells % (auto) 0.0, Prothrombin Time 12.5, Prothromb Time International Ratio 0.90, Anion Gap 9, Glomerular Filtration Rate 52.8, Calcium Level 9.7, Total Bilirubin 0.2, Aspartate Amino Transf (AST/SGOT) 13, Alanine Aminotransferase (ALT/SGPT) 25, Alkaline Phosphatase 67, Total Protein 6.2L, Albumin 3.4, Albumin/Globulin Ratio 1.2 CBC/BMP Laboratory Tests 08/28/21 15:21 Assessment/Plan Ms. Bustamante is a 61-year-old female with NIDDM, hypertension, spinal canal stenosis, and schizophrenia who has been psychiatrically cleared for admission f or intractable low back pain and lower extremity weakness. Her pain and weakness is most likely secondary to her severe spinal canal stenosis. I had the patient be transferred to [place] on 08/13/2021 for spinal surgery evaluation for possible cauda equine syndrome. Patient returned with no intervention. Patient has clear psych. I asked the psych provider will the patient need a sitter and the psych provider told me no. Patient will be here for pain control and rehab placement Plan / VTE VTE Prophylaxis Ordered?: Yes Plan Plan 1. Moderate to severe spinal canal stenosis -Most likely cause to patient's low back pain and frequent falls -Evaluated by spinal surgery at [facility] with no intervention -I have started pain control with acetaminophen, tramadol, and oxycodone -Continue pregabalin -PT/OT and ARU screen placed 2. Schizoaffective disorder, bipolar type -Patient was cleared from psych today -Continue trazodone, sertraline, and haloperidol -Per psych, patient does not need a sitter 3. Dysuria -Will order a UA with reflex to culture 4. Hyperlipidemia -Continue atorvastatin 5. Hypothyroidism -Continue levothyroxine 6. Hypertension -Continue amlodipine and lisinopril 7. DVT ppx -Lovenox Disposition: Pending ARU evaluation RYLAND BRADFORD DO Aug 28, 2021 20:11
[2021-08-28] MEDS: PREGABALIN 100 MG CAP (LYRICA) PO SCH (20:55)
[2021-08-28] MEDS: ATORVASTATIN 10 MG TAB PO SCH (20:55)
[2021-08-28] MEDS: traZODone 50 MG TAB PO SCH (20:55)
[2021-08-28] MEDS ORDERED: KETOROLAC TROMETHAMINE 10 MG TAB PO ONE (21:05)
[2021-08-29] MEDS: MOM 30ML SUSPENSION UDC PO PRN ×2 (01:04→11:04)
[2021-08-29] MEDS: oxyCODONE 5MG TAB PO PRN ×4 (01:05→21:36)
[2021-08-29 06:00] VITALS: BP 113/59
[2021-08-29] MEDS: LEVOTHYROXINE 25MCG TABLET (0.025MG) PO SCH (06:03)
[2021-08-29] MEDS: traMADol 50 MG TAB PO PRN ×2 (06:25→19:59)
[2021-08-29] MEDS ORDERED: FLUBLOK(EGG FREE)(QUAD)INFLUENZA VACC 0.5ML SYRINGE 18YRS & OLDER IM ONE (09:00)
[2021-08-29] MEDS ORDERED: METAMUCIL (PSYLLIUM) PACKET PO SCH (09:00)
[2021-08-29] MEDS: ASPIRIN 81MG ENTERIC TABLET PO SCH (09:17)
[2021-08-29] MEDS: DOCUSATE SODIUM 100MG CAPSULE PO SCH (09:17)
[2021-08-29] MEDS: FERROUS SULFATE 325MG TAB PO SCH (09:17)
[2021-08-29] MEDS: SERTRALINE 100 MG TAB PO SCH (09:18)
[2021-08-29] MEDS: PREGABALIN 100 MG CAP (LYRICA) PO SCH ×2 (09:18→21:35)
[2021-08-29] MEDS: VITAMIN E 400 INTERNATIONAL UNITS CAP PO SCH (09:18)
[2021-08-29] MEDS: VITAMIN D 1,000 INTERNATIONAL UNITS TABLET PO SCH (09:18)
[2021-08-29] MEDS: ENOXAPARIN 40MG/0.4ML SYRINGE (J1650 PER 10MG) SC SCH (09:19)
[2021-08-29 09:36] LABS: HEMATOCRIT 34.8 % (36.0-47.0); HEMOGLOBIN 11.3 g/dl (12.0-15.5); MEAN CORPUSCULAR HEMOGLOBIN 28.4 pg (27.0-33.0); MEAN CORPUSCULAR HGB CONC 32.5 g/dl (32.0-36.5); MEAN CORPUSCULAR VOLUME 87.4 fl (80.0-96.0); PLATELET COUNT, AUTOMATED 272 10^3/uL (150-450); RED BLOOD COUNT 3.98 10^6/uL (4.00-5.40); WHITE BLOOD COUNT 8.1 10^3/uL (4.0-10.0)
[2021-08-29] MEDS: lisinopriL 5 MG TAB PO SCH (09:40)
[2021-08-29 10:17] LABS: BLOOD UREA NITROGEN 19 MG/DL (7-18); CALCIUM LEVEL 9.2 MG/DL (8.8-10.2); CARBON DIOXIDE LEVEL 26 MEQ/L (21-32); CHLORIDE LEVEL 100 MEQ/L (98-107); CREATININE FOR GFR 0.92 MG/DL (0.55-1.30); GLOMERULAR FILTRATION RATE > 60.0 (>45); GLUCOSE, FASTING 119 MG/DL (70-100); POTASSIUM SERUM 4.5 MEQ/L (3.5-5.1); SODIUM LEVEL 132 MEQ/L (136-145)
[2021-08-29 14:00] VITALS: BP 123/54
--- NOTE | 2021-08-29 20:57 | IPNPDOC ---
Date Seen The patient was seen on 08/29/21. Progress Note SUBJECTIVE: seen at bedside. C/o back pain, radiculopathy. Unable to participate in PT today due to pain in lower back. Voiding urine and stool voluntarily. No c/o of perineal anesthesia or paraesthesia. OBJECTIVE PHYSICAL EXAMINATION: VITAL SIGNS: please see below General: NAD, comfortable HEENT: PERRLA, EOMI, sclerae clear Neck: supple, normal ROM, no JVD Respiratory: lungs CTAB, no wheeze, no rales, no crackles CVS: RRR, normal S1, S2, no murmurs Abdo: soft, no masses, no hepatosplenomegaly, BS+, no rebound tenderness Extremities: no edema, pulses 2+ MSK: no joint deformities, normal ROM Neuro: no focal neuro deficits, moving all 4 extremities, CN2-12 intact. ROM limited by low back pain. Psych: calm, cooperative, AAO x 3 LABORATORY DATA, IMAGING STUDIES, MICROBIOLOGY: Please see below. ASSESSMENT AND PLAN: Ms. Bustamante is a 61-year-old female with NIDDM, hypertension, spinal canal stenosis, and schizophrenia who has been psychiatrically cleared for admission for intractable low back pain and lower extremity weakness. Her pain and weakness is most likely secondary to her severe spinal canal stenosis. The patient was transferred to [facility] on 08/13/2021 for spinal surgery evaluation for possible cauda equine syndrome. Patient returned with no intervention. Patient has been cleared by psychiatry service, informed hospitalist service that no sitter is necessary. PROBLEMS: 1. Moderate to severe spinal canal stenosis -Most likely cause to patient's low back pain and frequent falls -Evaluated by spinal surgery at [facility] with no intervention -c/w acetaminophen, tramadol, and oxycodone -Continue pregabalin - PT/OT and ARU screen placed - patient will benefit from interventional pain, will attempt to contact service. 2. Schizoaffective disorder, bipolar type -Patient was cleared from psych today -Continue trazodone, sertraline, and haloperidol -Per psychiatry, patient does not need a sitter 3. Dysuria -Will order a UA with reflex to culture 4. Hyperlipidemia -Continue atorvastatin 5. Hypothyroidism -Continue levothyroxine 6. Hypertension -Continue amlodipine and lisinopril 7. DVT ppx -Lovenox Disposition: PT ongoing, will likely benefit from rehab. Placed ARU evaluation. VS, I&O, 24H, Fishbone Vital Signs/I&O Vital Signs Date Time Temp Pulse Resp B/P (MAP) Pulse Ox O2 Delivery O2 Flow Rate FiO2 08/29/21 19:59 18 Room Air 08/29/21 14:00 98.3 83 123/54 (77) 100 I&O- Last 24 Hours up to 6 AM 08/29/21 06:00 Intake Total 1200 ml Output Total 0 ml Balance 1200 ml Laboratory Data 24H LABS Laboratory Tests 2 08/29/21 09:21: Nucleated Red Blood Cells % (auto) 0.0, Anion Gap 6L, Glomerular Filtration Rate > 60.0, Calcium Level 9.2, Thyroid Stimulating Hormone (TSH) 1.300 CBC/BMP Laboratory Tests 08/29/21 09:21 GEORGE ALEJO MD Aug 29, 2021 20:57
[2021-08-29] MEDS: traZODone 50 MG TAB PO SCH (21:35)
[2021-08-29] MEDS: ATORVASTATIN 10 MG TAB PO SCH (21:35)
[2021-08-29 22:00] VITALS: BP 168/94
[2021-08-30] MEDS: traMADol 50 MG TAB PO PRN ×4 (01:40→22:55)
[2021-08-30] MEDS: ACETAMINOPHEN TAB 650MG DOSE (2X325MG) PO PRN ×2 (01:40→12:00)
[2021-08-30] MEDS: oxyCODONE 5MG TAB PO PRN ×3 (03:59→19:44)
[2021-08-30] MEDS: LEVOTHYROXINE 25MCG TABLET (0.025MG) PO SCH (05:24)
[2021-08-30 07:00] VITALS: BP 150/74
[2021-08-30 07:33] LABS: HEMATOCRIT 36.9 % (36.0-47.0); HEMOGLOBIN 11.8 g/dl (12.0-15.5); MEAN CORPUSCULAR HEMOGLOBIN 28.2 pg (27.0-33.0); MEAN CORPUSCULAR VOLUME 88.3 fl (80.0-96.0); PLATELET COUNT, AUTOMATED 290 10^3/uL (150-450); RED BLOOD COUNT 4.18 10^6/uL (4.00-5.40); WHITE BLOOD COUNT 7.8 10^3/uL (4.0-10.0)
[2021-08-30 07:47] LABS: BLOOD UREA NITROGEN 18 MG/DL (7-18); CALCIUM LEVEL 9.2 MG/DL (8.8-10.2); CARBON DIOXIDE LEVEL 29 MEQ/L (21-32); CHLORIDE LEVEL 101 MEQ/L (98-107); CREATININE FOR GFR 0.82 MG/DL (0.55-1.30); GLOMERULAR FILTRATION RATE > 60.0 (>45); GLUCOSE, FASTING 99 MG/DL (70-100); POTASSIUM SERUM 4.8 MEQ/L (3.5-5.1); SODIUM LEVEL 134 MEQ/L (136-145)
[2021-08-30] MEDS: DOCUSATE SODIUM 100MG CAPSULE PO SCH (09:04)
[2021-08-30] MEDS: VITAMIN D 1,000 INTERNATIONAL UNITS TABLET PO SCH (09:04)
[2021-08-30] MEDS: PREGABALIN 100 MG CAP (LYRICA) PO SCH ×2 (09:05→19:44)
[2021-08-30] MEDS: SERTRALINE 100 MG TAB PO SCH (09:05)
[2021-08-30] MEDS: FERROUS SULFATE 325MG TAB PO SCH (09:05)
[2021-08-30] MEDS: lisinopriL 5 MG TAB PO SCH (09:05)
[2021-08-30] MEDS: VITAMIN E 400 INTERNATIONAL UNITS CAP PO SCH (09:05)
[2021-08-30] MEDS: ASPIRIN 81MG ENTERIC TABLET PO SCH (09:05)
[2021-08-30] MEDS: ENOXAPARIN 40MG/0.4ML SYRINGE (J1650 PER 10MG) SC SCH (09:05)
[2021-08-30 14:00] VITALS: BP 101/53
[2021-08-30] MEDS: MOM 30ML SUSPENSION UDC PO PRN (14:37)
[2021-08-30] MEDS: traZODone 50 MG TAB PO SCH (19:44)
[2021-08-30] MEDS: ATORVASTATIN 10 MG TAB PO SCH (19:44)
--- NOTE | 2021-08-30 20:38 | IPNPDOC ---
Date Seen The patient was seen on 08/30/21. Progress Note SUBJECTIVE: seen at bedside. C/o back pain, radiculopathy. Unable to participate in PT today. No new symptoms. Voiding urine and stool voluntarily. No perineal numbness. OBJECTIVE PHYSICAL EXAMINATION: VITAL SIGNS: please see below General: NAD, comfortable HEENT: PERRLA, EOMI, sclerae clear Neck: supple, normal ROM, no JVD Respiratory: lungs CTAB, no wheeze, no rales, no crackles CVS: RRR, normal S1, S2, no murmurs Abdo: soft, no masses, no hepatosplenomegaly, BS+, no rebound tenderness Extremities: no edema, pulses 2+ MSK: no joint deformities, normal ROM Neuro: no focal neuro deficits, moving all 4 extremities, CN2-12 intact. Psych: calm, cooperative, AAO x 3 LABORATORY DATA, IMAGING STUDIES, MICROBIOLOGY: Please see below. ASSESSMENT AND PLAN: Ms. Bustamante is a 61-year-old female with NIDDM, hypertension, spinal canal stenosis, and schizophrenia who has been psychiatrically cleared for admission for intractable low back pain and lower extremity weakness. Her pain and weakness is most likely secondary to her severe spinal canal stenosis. I had the patient be transferred to [place] on 08/13/2021 for spinal surgery evaluation for possible cauda equine syndrome. Patient re turned with no intervention. Patient has been cleared by psychiatry service, informed hospitalist service that no sitter is necessary. PROBLEMS: 1. Moderate to severe spinal canal stenosis -Most likely cause to patient's low back pain and frequent falls -Evaluated by spinal surgery at [facility] with no intervention -c/w acetaminophen, tramadol, and oxycodone -Continue pregabalin - added lidocaine patch - started flexeril -PT/OT and ARU screen placed - D/w Dr. Leon-Soco. Will be happy to see patient as outpatient. Recommends to start PO prednisone course. - start prednisone 50 mg daily x 5 days - left VM with interventional pain service Dr. Moe 2. Schizoaffective disorder, bipolar type -Patient was cleared from psych today -Continue trazodone, sertraline, and haloperidol -Per psych, patient does not need a sitter 3. Dysuria -Will order a UA with reflex to culture 4. Hyperlipidemia -Continue atorvastatin 5. Hypothyroidism -Continue levothyroxine 6. Hypertension -Continue amlodipine and lisinopril 7. DVT ppx -Lovenox Disposition: Pending ARU evaluation VS, I&O, 24H, Fishbone Vital Signs/I&O Vital Signs Date Time Temp Pulse Resp B/P (MAP) Pulse Ox O2 Delivery O2 Flow Rate FiO2 08/30/21 20:14 18 08/30/21 14:00 97.3 83 101/53 (69) 96 Room Air I&O- Last 24 Hours up to 6 AM 08/30/21 06:00 Intake Total 2420 ml Balance 2420 ml Laboratory Data 24H LABS Laboratory Tests 2 08/30/21 06:09: Nucleated Red Blood Cells % (auto) 0.0, Anion Gap 4L, Glomerular Filtration Rate > 60.0, Calcium Level 9.2 08/30/21 07:25: Erythrocyte Sedimentation Rate 12, C-Reactive Protein, Quantitative < 0.30, Procalcitonin <0.05 CBC/BMP Laboratory Tests 08/30/21 06:09 Microbiology Microbiology 08/30/21 Blood Culture, Received Pending 08/30/21 Blood Culture, Received Pending GEORGE ALEJO MD Aug 30, 2021 20:38
[2021-08-30] MEDS ORDERED: predniSONE 10 MG TAB PO ONE (21:00)
[2021-08-30 22:00] VITALS: BP 114/57
[2021-08-30] MEDS: CYCLOBENZAPRINE 5MG TABLET PO PRN (22:54)
[2021-08-31] MEDS: oxyCODONE 5MG TAB PO PRN ×3 (01:42→19:34)
[2021-08-31] MEDS: traMADol 50 MG TAB PO PRN ×3 (05:05→23:48)
[2021-08-31] MEDS: LEVOTHYROXINE 25MCG TABLET (0.025MG) PO SCH (05:05)
[2021-08-31 06:00] VITALS: BP 145/72
[2021-08-31 06:35] LABS: HEMOGLOBIN 12.1 g/dl (12.0-15.5); MEAN CORPUSCULAR HEMOGLOBIN 28.3 pg (27.0-33.0); MEAN CORPUSCULAR HGB CONC 32.7 g/dl (32.0-36.5); MEAN CORPUSCULAR VOLUME 86.7 fl (80.0-96.0); PLATELET COUNT, AUTOMATED 288 10^3/uL (150-450); RED BLOOD COUNT 4.27 10^6/uL (4.00-5.40); WHITE BLOOD COUNT 6.2 10^3/uL (4.0-10.0)
[2021-08-31 06:53] LABS: BLOOD UREA NITROGEN 15 MG/DL (7-18); CALCIUM LEVEL 9.3 MG/DL (8.8-10.2); CARBON DIOXIDE LEVEL 29 MEQ/L (21-32); CHLORIDE LEVEL 100 MEQ/L (98-107); CREATININE FOR GFR 0.78 MG/DL (0.55-1.30); GLOMERULAR FILTRATION RATE > 60.0 (>45); GLUCOSE, FASTING 132 MG/DL (70-100); POTASSIUM SERUM 4.9 MEQ/L (3.5-5.1); SODIUM LEVEL 133 MEQ/L (136-145)
[2021-08-31] MEDS: DOCUSATE SODIUM 100MG CAPSULE PO SCH (09:31)
[2021-08-31] MEDS: VITAMIN D 1,000 INTERNATIONAL UNITS TABLET PO SCH (09:31)
[2021-08-31] MEDS: PREGABALIN 100 MG CAP (LYRICA) PO SCH ×2 (09:32→19:35)
[2021-08-31] MEDS: CYCLOBENZAPRINE 5MG TABLET PO PRN ×3 (09:32→23:47)
[2021-08-31] MEDS: lisinopriL 5 MG TAB PO SCH (09:32)
[2021-08-31] MEDS: ACETAMINOPHEN TAB 650MG DOSE (2X325MG) PO PRN ×2 (09:32→17:44)
[2021-08-31] MEDS: ASPIRIN 81MG ENTERIC TABLET PO SCH (09:32)
[2021-08-31] MEDS: FERROUS SULFATE 325MG TAB PO SCH (09:32)
[2021-08-31] MEDS: VITAMIN E 400 INTERNATIONAL UNITS CAP PO SCH (09:32)
[2021-08-31] MEDS: ENOXAPARIN 40MG/0.4ML SYRINGE (J1650 PER 10MG) SC SCH (09:33)
[2021-08-31] MEDS: SERTRALINE 100 MG TAB PO SCH (09:33)
[2021-08-31] MEDS: LIDOCAINE 5% (LIDODERM) PATCH TD SCH (09:34)
[2021-08-31] MEDS: predniSONE 10 MG TAB PO SCH (12:04)
[2021-08-31 14:00] VITALS: BP 97/55
[2021-08-31] MEDS: ATORVASTATIN 10 MG TAB PO SCH (19:34)
[2021-08-31] MEDS: traZODone 50 MG TAB PO SCH (19:34)
[2021-08-31] MEDS: **NOTE PATIENT COMMENT** MISC XX SCH (19:35)
--- NOTE | 2021-08-31 20:58 | IPNPDOC ---
Date Seen The patient was seen on 08/31/21. Progress Note SUBJECTIVE: seen at bedside. C/o back pain, radiculopathy. Unable to participate in PT today. No new symptoms. Voiding. No numbness. OBJECTIVE PHYSICAL EXAMINATION: VITAL SIGNS: please see below General: NAD, comfortable HEENT: PERRLA, EOMI, sclerae clear Neck: supple, normal ROM, no JVD Respiratory: lungs CTAB, no wheeze, no rales, no crackles CVS: RRR, normal S1, S2, no murmurs Abdo: soft, no masses, no hepatosplenomegaly, BS+, no rebound tenderness Extremities: no edema, pulses 2+ MSK: no joint deformities, normal ROM Neuro: no focal neuro deficits, moving all 4 extremities, CN2-12 intact. Psych: calm, cooperative, AAO x 3 LABORATORY DATA, IMAGING STUDIES, MICROBIOLOGY: Please see below. ASSESSMENT AND PLAN: Ms. Bustamante is a 61-year-old female with NIDDM, hypertension, spinal canal stenosis, and schizophrenia who has been psychiatrically cleared for admission for intractable low back pain and lower extremity weakness. Her pain and weakness is most likely secondary to her severe spinal canal stenosis. I had the patient be transferred to [place] on 08/13/2021 for spinal surgery evaluation for possible cauda equine syndrome. Patient returned with no intervention. Patient has been cleared by psychiatry service, informed hospitalist service that no sitter is necessary. PROBLEMS: 1. Moderate to severe spinal canal stenosis -Most likely cause to patient's low back pain and frequent falls -Evaluated by spinal surgery at [facility] with no intervention -c/w acetaminophen, tramadol, and oxycodone -Continue pregabalin - added lidocaine patch - started flexeril -PT/OT and ARU screen placed - D/w Dr. Leon-Pack. Will be happy to see patient as outpatient. Recommends to s tart PO prednisone course. - start prednisone 50 mg daily x 5 days - left VM with interventional pain service Dr. Moe- to call [facility] hotline in am [phone] 2. Schizoaffective disorder, bipolar type -Patient was cleared from psych today -Continue trazodone, sertraline, and haloperidol -Per psych, patient does not need a sitter 3. Dysuria -Will order a UA with reflex to culture 4. Hyperlipidemia -Continue atorvastatin 5. Hypothyroidism -Continue levothyroxine 6. Hypertension -Continue amlodipine and lisinopril 7. DVT ppx -Lovenox Disposition: Pending ARU evaluation VS, I&O, 24H, Fishbone Vital Signs/I&O Vital Signs Date Time Temp Pulse Resp B/P (MAP) Pulse Ox O2 Delivery O2 Flow Rate FiO2 08/31/21 20:04 18 08/31/21 14:00 99.1 77 97/55 (69) 95 Room Air I&O- Last 24 Hours up to 6 AM 08/31/21 06:00 Intake Total 1290 ml Output Total 0 ml Balance 1290 ml Laboratory Data 24H LABS Laboratory Tests 2 08/31/21 05:52: Nucleated Red Blood Cells % (auto) 0.0, Anion Gap 4L, Glomerular Filtration Rate > 60.0, Calcium Level 9.3 CBC/BMP Laboratory Tests 08/31/21 05:52 Microbiology Microbiology 08/30/21 Blood Culture - Preliminary, Resulted No growth after 24 hours . All specim... 08/30/21 Blood Culture - Preliminary, Resulted No growth after 24 hours . All specim... GEORGE ALEJO MD Aug 31, 2021 20:58
[2021-08-31 22:00] VITALS: BP 148/73
[2021-09-01] MEDS: oxyCODONE 5MG TAB PO PRN ×2 (00:57→17:19)
[2021-09-01] MEDS ORDERED: tiZANidine 4 MG TAB PO ONE (01:25)
[2021-09-01] MEDS ORDERED: PILL CUTTER 1 EACH XX PRN (01:30)
[2021-09-01] MEDS: LEVOTHYROXINE 25MCG TABLET (0.025MG) PO SCH (04:44)
[2021-09-01] MEDS: ACETAMINOPHEN TAB 650MG DOSE (2X325MG) PO PRN ×2 (04:44→21:50)
[2021-09-01 06:00] VITALS: BP 119/66
[2021-09-01 07:16] LABS: HEMATOCRIT 37.1 % (36.0-47.0); HEMOGLOBIN 12.1 g/dl (12.0-15.5); MEAN CORPUSCULAR HEMOGLOBIN 28.2 pg (27.0-33.0); MEAN CORPUSCULAR HGB CONC 32.6 g/dl (32.0-36.5); MEAN CORPUSCULAR VOLUME 86.5 fl (80.0-96.0); PLATELET COUNT, AUTOMATED 271 10^3/uL (150-450); RED BLOOD COUNT 4.29 10^6/uL (4.00-5.40); WHITE BLOOD COUNT 7.8 10^3/uL (4.0-10.0)
[2021-09-01 07:42] LABS: BLOOD UREA NITROGEN 15 MG/DL (7-18); CALCIUM LEVEL 9.8 MG/DL (8.8-10.2); CARBON DIOXIDE LEVEL 31 MEQ/L (21-32); CHLORIDE LEVEL 99 MEQ/L (98-107); CREATININE FOR GFR 0.87 MG/DL (0.55-1.30); GLOMERULAR FILTRATION RATE > 60.0 (>45); GLUCOSE, FASTING 101 MG/DL (70-100); POTASSIUM SERUM 4.3 MEQ/L (3.5-5.1); SODIUM LEVEL 133 MEQ/L (136-145)
[2021-09-01] MEDS: ENOXAPARIN 40MG/0.4ML SYRINGE (J1650 PER 10MG) SC SCH (08:42)
[2021-09-01] MEDS: CYCLOBENZAPRINE 5MG TABLET PO PRN ×2 (08:42→17:19)
[2021-09-01] MEDS: LIDOCAINE 5% (LIDODERM) PATCH TD SCH (08:42)
[2021-09-01] MEDS: traMADol 50 MG TAB PO PRN ×2 (08:43→19:41)
[2021-09-01] MEDS: VITAMIN D 1,000 INTERNATIONAL UNITS TABLET PO SCH (08:43)
[2021-09-01] MEDS: ASPIRIN 81MG ENTERIC TABLET PO SCH (08:44)
[2021-09-01] MEDS: SERTRALINE 100 MG TAB PO SCH (08:44)
[2021-09-01] MEDS: FERROUS SULFATE 325MG TAB PO SCH (08:44)
[2021-09-01] MEDS: VITAMIN E 400 INTERNATIONAL UNITS CAP PO SCH (08:44)
[2021-09-01] MEDS: PREGABALIN 100 MG CAP (LYRICA) PO SCH ×2 (08:44→19:40)
[2021-09-01] MEDS: lisinopriL 5 MG TAB PO SCH (08:45)
[2021-09-01] MEDS: predniSONE 10 MG TAB PO SCH (08:45)
[2021-09-01] MEDS: DOCUSATE SODIUM 100MG CAPSULE PO SCH (08:45)
--- NOTE | 2021-09-01 19:12 | IPNPDOC ---
Subjective Date Seen The patient was seen on 09/01/21. Subjective Chief Complaint/HPI Ms. Bustamante is a 61-year-old female with NIDDM, hypertension, spinal canal stenosis, and schizophrenia who has been psychiatrically cleared for admission for intractable low back pain and lower extremity weakness. This morning she denies any chest pain or dyspnea. She also denies any back pain. The steroids may be helping with her back pain. She reports having leg cramping. 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 She is hesitant to walk, but they were able to have her sit in the chair. Objective Physical Examination General Exam: Positive: Alert, Cooperative Eye Exam: Positive: EOMI; Negative: Sclera icteric ENT Exam: Positive: Atraumatic Neck Exam: Positive: Supple Chest Exam: Positive: Clear to auscultation; Negative: Rales, Rhonchi, Wheezing Heart Exam: Positive: Rate Normal, Regular Rhythm Abdomen Exam: Positive: Normal bowel sounds, Soft; Negative: Tenderness Neuro Exam: Positive: Normal Speech, Cranial Nerves 3-12 NL Psych Exam: Positive: Mental status NL, Anxiety Assessment /Plan Assessment Ms. Bustamante is a 61-year-old female with NIDDM, hypertension, spinal canal stenosis, and schizophrenia who has been psychiatrically cleared for admission for intractable low back pain and lower extremity weakness. Her pain and weakness is most likely secondary to her severe spinal canal stenosis. I had the patient be transferred to [place] on 08/13/2021 for spinal surgery evaluation for possible cauda equine syndrome. Patient returned with no intervention. Patient has clear psych. I asked the psych provider will the patient need a sitter and the psych provider told me no. Patient will be here for pain control and rehab placement Plan/VTE VTE Prophylaxis Ordered?: Yes Plan 1. Moderate to severe spinal canal stenosis -Most likely cause to patient's low back pain and frequent falls -Evaluated by spinal surgery at [facility] with no intervention -I have started pain control with acetaminophen, tramadol, and oxycodone -Continue pregabalin Continue Flexeril as needed Continue prednisone, day 2 of 5 -PT/OT working with patient 2. Schizoaffective disorder, bipolar type -Patient was cleared from psych today -Continue trazodone, sertraline, and haloperidol -Per psych, patient does not need a sitter 3. Dysuria -This morning, patient tells me she had dysuria UA only positive for trace leukocytosis. Is fairly unremarkable 4. Hyperlipidemia -Continue atorvastatin 5. Hypothyroidism -Continue levothyroxine 6. Hypertension -Continue amlodipine and lisinopril 7. DVT ppx -Lovenox Disposition: Pending placement VS, I&O, 24H, Fishbone Vital Signs/I&O Vital Signs Date Time Temp Pulse Resp B/P (MAP) Pulse Ox O2 Delivery O2 Flow Rate FiO2 09/01/21 17:49 18 09/01/21 08:45 125/66 09/01/21 08:45 81 09/01/21 08:43 Room Air 09/01/21 06:00 98.5 98 I&O- Last 24 Hours up to 6 AM 09/01/21 06:00 Intake Total 1200 ml Balance 1200 ml Laboratory Data 24H LABS Laboratory Tests 2 09/01/21 06:56: Nucleated Red Blood Cells % (auto) 0.0, Anion Gap 3L, Glomerular Filtration Rate > 60.0, Calcium Level 9.8 09/01/21 18:20: Urine Color STRAW, Urine Appearance CLEAR, Urine pH 7.0, Urine Specific [place] 1.006, Urine Protein NEGATIVE, Urine Glucose (UA) NEGATIVE, Urine Ketones NEGATIVE, Urine Blood NEGATIVE, Urine Nitrite NEGATIVE, Urine Bilirubin NEGATIVE, Urine Urobilinogen 0.2, Urine Leukocyte Esterase TRACEH, Urine WBC (Auto) 2, Urine RBC (Auto) 1, Urine Hyaline Casts (Auto) 0, Urine Bacteria (Auto) NEGATIVE, Urine Squamous Epithelial Cells 0, Urine Mucus (Auto) SMALL, Urine Sperm (Auto) CBC/BMP Laboratory Tests 09/01/21 06:56 Microbiology Microbiology 09/01/21 Urine Culture, Received Pending 08/30/21 Blood Culture - Preliminary, Resulted No Growth after 48 hours. All Specime... 08/30/21 Blood Culture - Preliminary, Resulted No Growth after 48 hours. All Specime... RYLAND BRADFORD DO Sep 01, 2021 19:12
[2021-09-01] MEDS: ATORVASTATIN 10 MG TAB PO SCH (19:40)
[2021-09-01] MEDS: traZODone 50 MG TAB PO SCH (19:40)
[2021-09-01] MEDS: ANALGESIC BALM CRM 3OZ TOP PRN (19:41)
[2021-09-01 19:48] VITALS: BP 142/78
[2021-09-01] MEDS: **NOTE PATIENT COMMENT** MISC XX SCH (20:26)
[2021-09-02] MEDS: oxyCODONE 5MG TAB PO PRN ×3 (00:16→17:23)
[2021-09-02] MEDS: ANALGESIC BALM CRM 3OZ TOP PRN ×2 (00:16→08:29)
[2021-09-02] MEDS: CYCLOBENZAPRINE 5MG TABLET PO PRN ×3 (00:16→17:21)
[2021-09-02] MEDS: LEVOTHYROXINE 25MCG TABLET (0.025MG) PO SCH (05:04)
[2021-09-02] MEDS: traMADol 50 MG TAB PO PRN ×3 (05:04→20:56)
[2021-09-02 05:54] VITALS: BP 160/80
[2021-09-02 07:01] LABS: HEMATOCRIT 36.7 % (36.0-47.0); HEMOGLOBIN 11.9 g/dl (12.0-15.5); MEAN CORPUSCULAR HGB CONC 32.4 g/dl (32.0-36.5); MEAN CORPUSCULAR VOLUME 86.4 fl (80.0-96.0); PLATELET COUNT, AUTOMATED 270 10^3/uL (150-450); RED BLOOD COUNT 4.25 10^6/uL (4.00-5.40); WHITE BLOOD COUNT 7.6 10^3/uL (4.0-10.0)
[2021-09-02 07:19] LABS: BLOOD UREA NITROGEN 19 MG/DL (7-18); CALCIUM LEVEL 9.5 MG/DL (8.8-10.2); CARBON DIOXIDE LEVEL 29 MEQ/L (21-32); CHLORIDE LEVEL 98 MEQ/L (98-107); CREATININE FOR GFR 0.89 MG/DL (0.55-1.30); GLOMERULAR FILTRATION RATE > 60.0 (>45); GLUCOSE, FASTING 103 MG/DL (70-100); POTASSIUM SERUM 4.2 MEQ/L (3.5-5.1); SODIUM LEVEL 132 MEQ/L (136-145)
[2021-09-02] MEDS: PREGABALIN 100 MG CAP (LYRICA) PO SCH ×2 (08:30→20:54)
[2021-09-02] MEDS: LIDOCAINE 5% (LIDODERM) PATCH TD SCH (08:30)
[2021-09-02] MEDS: ASPIRIN 81MG ENTERIC TABLET PO SCH (08:30)
[2021-09-02] MEDS: ENOXAPARIN 40MG/0.4ML SYRINGE (J1650 PER 10MG) SC SCH (08:30)
[2021-09-02] MEDS: FERROUS SULFATE 325MG TAB PO SCH (08:30)
[2021-09-02] MEDS: VITAMIN E 400 INTERNATIONAL UNITS CAP PO SCH (08:30)
[2021-09-02] MEDS: VITAMIN D 1,000 INTERNATIONAL UNITS TABLET PO SCH (08:30)
[2021-09-02] MEDS: SERTRALINE 100 MG TAB PO SCH (08:31)
[2021-09-02] MEDS: DOCUSATE SODIUM 100MG CAPSULE PO SCH (08:31)
[2021-09-02] MEDS: lisinopriL 5 MG TAB PO SCH (08:31)
[2021-09-02] MEDS: predniSONE 10 MG TAB PO SCH (08:32)
--- NOTE | 2021-09-02 12:25 | REP ---
INDICATION: bilateral leg pain. COMPARISON: None. TECHNIQUE: Pulse duplex and color Doppler evaluation of the deep venous system of both lower extremities was performed. FINDINGS: Pulse duplex and color Doppler ultrasound evaluation of the venous system of both lower extremities reveals no evidence of deep venous thrombosis. IMPRESSION: There is no evidence of deep venous thrombosis of either lower extremity. <Electronically signed by Chaz Nath > 09/02/21 [id number]
[2021-09-02 14:00] VITALS: BP 113/67
--- NOTE | 2021-09-02 15:34 | IPNPDOC ---
Subjective Date Seen The patient was seen on 09/02/21. Subjective Chief Complaint/HPI Ms. Bustamante is a 61-year-old female with NIDDM, hypertension, spinal canal stenosis, and schizophrenia who has been psychiatrically cleared for admission for intractable low back pain and lower extremity weakness. This morning, she denies any chest pain or dyspnea. She also denies back pain. Her main concern is her leg cramping bilaterally. Order for ultrasound which is negative for DVT. Objective Physical Examination General Exam: Positive: Alert, Cooperative Eye Exam: Positive: EOMI; Negative: Sclera icteric ENT Exam: Positive: Atraumatic Neck Exam: Positive: Supple Chest Exam: Positive: Clear to auscultation; Negative: Rales, Rhonchi, Wheezing Heart Exam: Positive: Rate Normal, Regular Rhythm Abdomen Exam: Positive: Normal bowel sounds, Soft; Negative: Tenderness Neuro Exam: Positive: Normal Speech, Cranial Nerves 3-12 NL Psych Exam: Positive: Mental status NL, Anxiety Assessment /Plan Assessment Ms. Bustamante is a 61-year-old female with NIDDM, hypertension, spinal canal stenosis, and schizophrenia who has been psychiatrically cleared for admission for intractable low back pain and lower extremity weakness. Her pain and weakness is most likely secondary to her severe spinal canal stenosis. I had the patient be transferred to [place] on 08/13/2021 for spinal surgery evaluation for possible cauda equine syndrome. Patient returned with no intervention. Patient has clear psych. I asked the psych provider will the patient need a sitter and the psych provider told me no. Patient will be here for pain control and rehab placement Plan/VTE VTE Prophylaxis Ordered?: Yes Plan 1. Moderate to severe spinal canal stenosis -Most likely cause to patient's low back pain and frequent falls -[facility] -I have started pain control with acetaminophen, tramadol, and oxycodone -Continue pregabalin Continue Flexeril as needed Continue prednisone, day 2 of 5 -PT/OT working with patient 2. Schizoaffective disorder, bipolar type -Patient was cleared from psych today -Continue trazodone, sertraline, and haloperidol -Per psych, patient does not need a sitter 3. Dysuria -This morning, patient tells me she had dysuria UA only positive for trace leukocytosis. Is fairly unremarkable 4. Hyperlipidemia -Continue atorvastatin 5. Hypothyroidism -Continue levothyroxine 6. Hypertension -Continue amlodipine and lisinopril 7. DVT ppx -Lovenox Disposition: Pending placement VS, I&O, 24H, Fishbone Vital Signs/I&O Vital Signs Date Time Temp Pulse Resp B/P (MAP) Pulse Ox O2 Delivery O2 Flow Rate FiO2 09/02/21 14:00 98.6 84 16 113/67 (82) 97 Room Air I&O- Last 24 Hours up to 6 AM 09/02/21 06:00 Intake Total 2920 ml Output Total 1000 ml Balance 1920 ml Laboratory Data 24H LABS Laboratory Tests 2 09/01/21 18:20: Urine Color STRAW, Urine Appearance CLEAR, Urine pH 7.0, Urine Specific [place] 1.006, Urine Protein NEGATIVE, Urine Glucose (UA) NEGATIVE, Urine Ketones NEGATIVE, Urine Blood NEGATIVE, Urine Nitrite NEGATIVE, Urine Bilirubin NEGATIVE, Urine Urobilinogen 0.2, Urine Leukocyte Esterase TRACEH, Urine WBC (Auto) 2, Urine RBC (Auto) 1, Urine Hyaline Casts (Auto) 0, Urine Bacteria (Auto) NEGATIVE, Urine Squamous Epithelial Cells 0, Urine Mucus (Auto) SMALL, Urine Sperm (Auto) 09/02/21 06:45: Nucleated Red Blood Cells % (auto) 0.0, Anion Gap 5L, Glomerular Filtration Rate > 60.0, Calcium Level 9.5, Magnesium Level 1.8 CBC/BMP Laboratory Tests 09/02/21 06:45 Microbiology Microbiology 09/01/21 Urine Culture - Final, Complete 08/30/21 Blood Culture - Preliminary, Resulted No Growth after 72 hours. All specime... 08/30/21 Blood Culture - Preliminary, Resulted No Growth after 72 hours. All specime... RYLAND BRADFORD DO Sep 02, 2021 15:34
[2021-09-02] MEDS: ATORVASTATIN 10 MG TAB PO SCH (20:54)
[2021-09-02] MEDS: traZODone 50 MG TAB PO SCH (20:54)
[2021-09-02] MEDS: ACETAMINOPHEN TAB 650MG DOSE (2X325MG) PO PRN (20:55)
[2021-09-02] MEDS: **NOTE PATIENT COMMENT** MISC XX SCH (21:40)
[2021-09-02 22:00] VITALS: BP 116/67
[2021-09-03] MEDS: CYCLOBENZAPRINE 5MG TABLET PO PRN ×3 (00:43→14:53)
[2021-09-03] MEDS: oxyCODONE 5MG TAB PO PRN ×4 (00:43→20:02)
[2021-09-03] MEDS: ANALGESIC BALM CRM 3OZ TOP PRN (00:46)
[2021-09-03] MEDS: ACETAMINOPHEN TAB 650MG DOSE (2X325MG) PO PRN ×2 (02:55→14:54)
[2021-09-03] MEDS: traMADol 50 MG TAB PO PRN ×3 (05:08→20:03)
[2021-09-03] MEDS: LEVOTHYROXINE 25MCG TABLET (0.025MG) PO SCH (05:08)
[2021-09-03 06:00] VITALS: BP 169/85
[2021-09-03 07:00] LABS: HEMATOCRIT 37.6 % (36.0-47.0); HEMOGLOBIN 12.2 g/dl (12.0-15.5); MEAN CORPUSCULAR HGB CONC 32.4 g/dl (32.0-36.5); MEAN CORPUSCULAR VOLUME 86.4 fl (80.0-96.0); PLATELET COUNT, AUTOMATED 267 10^3/uL (150-450); RED BLOOD COUNT 4.35 10^6/uL (4.00-5.40); WHITE BLOOD COUNT 8.2 10^3/uL (4.0-10.0)
[2021-09-03 07:17] LABS: BLOOD UREA NITROGEN 18 MG/DL (7-18); CALCIUM LEVEL 9.5 MG/DL (8.8-10.2); CARBON DIOXIDE LEVEL 29 MEQ/L (21-32); CHLORIDE LEVEL 98 MEQ/L (98-107); CREATININE FOR GFR 0.84 MG/DL (0.55-1.30); GLOMERULAR FILTRATION RATE > 60.0 (>45); GLUCOSE, FASTING 91 MG/DL (70-100); MAGNESIUM LEVEL 1.9 MG/DL (1.8-2.4); POTASSIUM SERUM 3.9 MEQ/L (3.5-5.1); SODIUM LEVEL 132 MEQ/L (136-145)
[2021-09-03] MEDS: predniSONE 10 MG TAB PO SCH (08:27)
[2021-09-03] MEDS: VITAMIN D 1,000 INTERNATIONAL UNITS TABLET PO SCH (08:27)
[2021-09-03] MEDS: VITAMIN E 400 INTERNATIONAL UNITS CAP PO SCH (08:27)
[2021-09-03] MEDS: DOCUSATE SODIUM 100MG CAPSULE PO SCH (08:27)
[2021-09-03] MEDS: ENOXAPARIN 40MG/0.4ML SYRINGE (J1650 PER 10MG) SC SCH (08:27)
[2021-09-03] MEDS: FERROUS SULFATE 325MG TAB PO SCH (08:28)
[2021-09-03] MEDS: SERTRALINE 100 MG TAB PO SCH (08:28)
[2021-09-03] MEDS: lisinopriL 5 MG TAB PO SCH (08:29)
[2021-09-03] MEDS: LIDOCAINE 5% (LIDODERM) PATCH TD SCH (08:29)
[2021-09-03] MEDS: PREGABALIN 100 MG CAP (LYRICA) PO SCH (08:29)
[2021-09-03] MEDS: ASPIRIN 81MG ENTERIC TABLET PO SCH (08:29)
[2021-09-03] MEDS ORDERED: PREGABALIN 50 MG CAP (LYRICA) PO ONE (10:00)
--- NOTE | 2021-09-03 11:39 | IPNPDOC ---
Subjective Date Seen The patient was seen on 09/03/21. Subjective Chief Complaint/HPI Ms. Bustamante is a 61-year-old female with NIDDM, hypertension, spinal canal stenosis, and schizophrenia who has been psychiatrically cleared for admission for intractable low back pain and lower extremity weakness. This morning, she was stretching out her legs, and her legs started to cramp again. In addition, her back was hurting. I increased her Pregabalin from 100mg BID to 150mg BID. Objective Physical Examination General Exam: Positive: Alert, Cooperative Eye Exam: Positive: EOMI; Negative: Sclera icteric ENT Exam: Positive: Atraumatic Neck Exam: Positive: Supple Chest Exam: Positive: Clear to auscultation; Negative: Rales, Rhonchi, Wheezing Heart Exam: Positive: Rate Normal, Regular Rhythm Abdomen Exam: Positive: Normal bowel sounds, Soft; Negative: Tenderness Neuro Exam: Positive: Normal Speech, Cranial Nerves 3-12 NL Psych Exam: Positive: Mental status NL, Anxiety Assessment /Plan Assessment Ms. Bustamante is a 61-year-old female with NIDDM, hypertension, spinal canal stenosis, and schizophrenia who has been psychiatrically cleared for admission for intractable low back pain and lower extremity weakness. Her pain and weakness is most likely secondary to her severe spinal canal stenosis. I had the patient be transferred to [place] on 08/13/2021 for spinal surgery evaluation for possible cauda equine syndrome. Patient returned with no intervention. Patient has clear psych. I asked the psych provider will the patient need a sitter and the psych provider told me no. Patient will be here for pain control and rehab placement Plan/VTE VTE Prophylaxis Ordered?: Yes Plan 1. Moderate to severe spinal canal stenosis -Most likely cause to patient's low back pain and frequent falls -[facility] -I have started pain control with acetaminophen, tramadol, and oxycodone -Continue pregabalin Continue Flexeril as needed Continue prednisone, day 2 of 5 -PT/OT working with patient 2. Schizoaffective disorder, bipolar type -Patient was cleared from psych today -Continue trazodone, sertraline, and haloperidol -Per psych, patient does not need a sitter 3. Dysuria -This morning, patient tells me she had dysuria UA only positive for trace leukocytosis. Is fairly unremarkable 4. Hyperlipidemia -Continue atorvastatin 5. Hypothyroidism -Continue levothyroxine 6. Hypertension -Continue amlodipine and lisinopril 7. DVT ppx -Lovenox Disposition: Pending placement VS, I&O, 24H, Fishbone Vital Signs/I&O Vital Signs Date Time Temp Pulse Resp B/P (MAP) Pulse Ox O2 Delivery O2 Flow Rate FiO2 09/03/21 08:58 18 09/03/21 08:29 146/86 09/03/21 08:27 88 09/03/21 06:00 97.7 98 Room Air I&O- Last 24 Hours up to 6 AM 09/03/21 05:59 Intake Total 3030 ml Output Total 100 ml Balance 2930 ml Laboratory Data 24H LABS Laboratory Tests 2 09/03/21 05:57: Nucleated Red Blood Cells % (auto) 0.0, Anion Gap 5L, Glomerular Filtration Rate > 60.0, Calcium Level 9.5, Magnesium Level 1.9 CBC/BMP Laboratory Tests 09/03/21 05:57 Microbiology Microbiology 09/01/21 Urine Culture - Final, Complete 08/30/21 Blood Culture - Preliminary, Resulted No Growth after 72 hours. All specime... 08/30/21 Blood Culture - Preliminary, Resulted No Growth after 72 hours. All specime... RYLAND BRADFORD DO Sep 03, 2021 11:39
[2021-09-03 14:00] VITALS: BP 130/67
[2021-09-03] MEDS: **NOTE PATIENT COMMENT** MISC XX SCH (20:03)
[2021-09-03] MEDS: ATORVASTATIN 10 MG TAB PO SCH (20:03)
[2021-09-03] MEDS: PREGABALIN 75 MG CAP(LYRICA) PO SCH (20:03)
[2021-09-03] MEDS: traZODone 50 MG TAB PO SCH (20:03)
[2021-09-03 22:00] VITALS: BP 142/80
[2021-09-04] MEDS: ACETAMINOPHEN TAB 650MG DOSE (2X325MG) PO PRN ×3 (00:56→15:42)
[2021-09-04] MEDS: CYCLOBENZAPRINE 5MG TABLET PO PRN ×3 (00:56→15:41)
[2021-09-04] MEDS: oxyCODONE 5MG TAB PO PRN ×2 (03:45→15:41)
[2021-09-04] MEDS: traMADol 50 MG TAB PO PRN ×2 (03:45→23:36)
[2021-09-04 05:55] LABS: HEMATOCRIT 36.9 % (36.0-47.0); HEMOGLOBIN 12.1 g/dl (12.0-15.5); MEAN CORPUSCULAR HEMOGLOBIN 28.3 pg (27.0-33.0); MEAN CORPUSCULAR HGB CONC 32.8 g/dl (32.0-36.5); MEAN CORPUSCULAR VOLUME 86.2 fl (80.0-96.0); PLATELET COUNT, AUTOMATED 259 10^3/uL (150-450); RED BLOOD COUNT 4.28 10^6/uL (4.00-5.40); WHITE BLOOD COUNT 9.5 10^3/uL (4.0-10.0)
[2021-09-04 06:00] VITALS: BP 125/68
[2021-09-04] MEDS: LEVOTHYROXINE 25MCG TABLET (0.025MG) PO SCH (06:18)
[2021-09-04 06:21] LABS: BLOOD UREA NITROGEN 18 MG/DL (7-18); CALCIUM LEVEL 9.5 MG/DL (8.8-10.2); CARBON DIOXIDE LEVEL 29 MEQ/L (21-32); CHLORIDE LEVEL 100 MEQ/L (98-107); CREATININE FOR GFR 0.84 MG/DL (0.55-1.30); GLOMERULAR FILTRATION RATE > 60.0 (>45); GLUCOSE, FASTING 96 MG/DL (70-100); SODIUM LEVEL 134 MEQ/L (136-145)
[2021-09-04] MEDS: PREGABALIN 75 MG CAP(LYRICA) PO SCH ×2 (08:53→20:58)
[2021-09-04] MEDS: DOCUSATE SODIUM 100MG CAPSULE PO SCH (08:53)
[2021-09-04] MEDS: ASPIRIN 81MG ENTERIC TABLET PO SCH (08:53)
[2021-09-04] MEDS: FERROUS SULFATE 325MG TAB PO SCH (08:54)
[2021-09-04] MEDS: predniSONE 10 MG TAB PO SCH (08:54)
[2021-09-04] MEDS: SERTRALINE 100 MG TAB PO SCH (08:54)
[2021-09-04] MEDS: VITAMIN D 1,000 INTERNATIONAL UNITS TABLET PO SCH (08:54)
[2021-09-04] MEDS: ENOXAPARIN 40MG/0.4ML SYRINGE (J1650 PER 10MG) SC SCH (08:55)
[2021-09-04] MEDS: LIDOCAINE 5% (LIDODERM) PATCH TD SCH (08:55)
[2021-09-04] MEDS: lisinopriL 5 MG TAB PO SCH (08:57)
--- NOTE | 2021-09-04 10:18 | IPNPDOC ---
Subjective Date Seen The patient was seen on 09/04/21. Subjective Chief Complaint/HPI Ms. Bustamante is a 61-year-old female with NIDDM, hypertension, spinal canal stenosis, and schizophrenia who has been psychiatrically cleared for admission for intractable low back pain and lower extremity weakness. This morning, she was seeing lying straight in bed. She tells me that she wants to try to walk. Pain is still 8/10. Her pain medications work, but only last for about an hour. I'll start her on long acting oxycodone 10mg BID. Objective Physical Examination General Exam: Positive: Alert, Cooperative Eye Exam: Positive: EOMI; Negative: Sclera icteric ENT Exam: Positive: Atraumatic Neck Exam: Positive: Supple Chest Exam: Positive: Clear to auscultation; Negative: Rales, Rhonchi, Wheezing Heart Exam: Positive: Tachycardic, Regular Rhythm Abdomen Exam: Positive: Normal bowel sounds, Soft; Negative: Tenderness Neuro Exam: Positive: Normal Speech, Cranial Nerves 3-12 NL Psych Exam: Positive: Mental status NL, Anxiety Assessment /Plan Assessment Ms. Bustamante is a 61-year-old female with NIDDM, hypertension, spinal canal stenosis, and schizophrenia who has been psychiatrically cleared for admission for intractable low back pain and lower extremity weakness. Her pain and weakness is most likely secondary to her severe spinal canal stenosis. I had the patient be transferred to [place] on 08/13/2021 for spinal surgery evaluation for possible cauda equine syndrome. Patient returned with no intervention. Patient has clear psych. I asked the psych provider will the patient need a sitter and the psych provider told me no. Patient will be here for pain control and rehab placement Plan/VTE VTE Prophylaxis Ordered?: Yes Plan 1. Moderate to severe spinal canal stenosis -Most likely cause to patient's low back pain and frequent falls -Evaluated by spinal surgery at [facility] with no intervention -I have started pain control with acetaminophen, tramadol, and oxycodone -Continue pregabalin Continue Flexeril as needed Continue prednisone, day 5 of 5 -PT/OT working with patient 2. Schizoaffective disorder, bipolar type -Patient was cleared from psych today -Continue trazodone, sertraline, and haloperidol -Per psych, patient does not need a sitter 3. Dysuria -This morning, patient tells me she had dysuria UA only positive for trace leukocytosis. Is fairly unremarkable 4. Hyperlipidemia -Continue atorvastatin 5. Hypothyroidism -Continue levothyroxine 6. Hypertension -Continue amlodipine and lisinopril 7. DVT ppx -Lovenox Disposition: Pending pain control and placement VS, I&O, 24H, Fishbone Vital Signs/I&O Vital Signs Date Time Temp Pulse Resp B/P (MAP) Pulse Ox O2 Delivery O2 Flow Rate FiO2 09/04/21 08:58 107 171/90 09/04/21 06:00 98.3 20 95 Room Air I&O- Last 24 Hours up to 6 AM 09/04/21 06:00 Intake Total 1700 ml Balance 1700 ml Laboratory Data 24H LABS Laboratory Tests 2 09/04/21 05:35: Nucleated Red Blood Cells % (auto) 0.0, Anion Gap 5L, Glomerular Filtration Rate > 60.0, Calcium Level 9.5 CBC/BMP Laboratory Tests 09/04/21 05:35 Microbiology Microbiology 09/01/21 Urine Culture - Final, Complete 08/30/21 Blood Culture - Final, Complete NO GROWTH AFTER 5 DAYS 08/30/21 Blood Culture - Final, Complete NO GROWTH AFTER 5 DAYS RYLAND BRADFORD DO Sep 04, 2021 10:18
[2021-09-04] MEDS: VITAMIN E 400 INTERNATIONAL UNITS CAP PO SCH (10:59)
[2021-09-04] MEDS: oxyCODONE 10 MG CR TAB PO SCH ×2 (11:00→20:59)
[2021-09-04 14:00] VITALS: BP 120/74
[2021-09-04 20:30] VITALS: BP 125/73
[2021-09-04] MEDS: traZODone 50 MG TAB PO SCH (20:57)
[2021-09-04] MEDS: ATORVASTATIN 10 MG TAB PO SCH (20:57)
[2021-09-04] MEDS: **NOTE PATIENT COMMENT** MISC XX SCH (20:59)
[2021-09-05] MEDS: ACETAMINOPHEN TAB 650MG DOSE (2X325MG) PO PRN ×3 (01:48→22:30)
[2021-09-05] MEDS: CYCLOBENZAPRINE 5MG TABLET PO PRN ×2 (01:49→22:30)
[2021-09-05 04:59] VITALS: BP 177/108
[2021-09-05 05:06] VITALS: BP 142/86
[2021-09-05] MEDS: LEVOTHYROXINE 25MCG TABLET (0.025MG) PO SCH (05:47)
[2021-09-05] MEDS: traMADol 50 MG TAB PO PRN ×2 (05:47→15:13)
[2021-09-05 06:07] VITALS: BP 142/86
[2021-09-05 06:22] LABS: HEMATOCRIT 39.2 % (36.0-47.0); HEMOGLOBIN 12.7 g/dl (12.0-15.5); MEAN CORPUSCULAR HEMOGLOBIN 28.3 pg (27.0-33.0); MEAN CORPUSCULAR HGB CONC 32.4 g/dl (32.0-36.5); MEAN CORPUSCULAR VOLUME 87.3 fl (80.0-96.0); PLATELET COUNT, AUTOMATED 261 10^3/uL (150-450); RED BLOOD COUNT 4.49 10^6/uL (4.00-5.40); WHITE BLOOD COUNT 8.6 10^3/uL (4.0-10.0)
[2021-09-05 06:42] LABS: BLOOD UREA NITROGEN 20 MG/DL (7-18); CALCIUM LEVEL 9.5 MG/DL (8.8-10.2); CARBON DIOXIDE LEVEL 30 MEQ/L (21-32); CHLORIDE LEVEL 99 MEQ/L (98-107); CREATININE FOR GFR 0.86 MG/DL (0.55-1.30); GLOMERULAR FILTRATION RATE > 60.0 (>45); GLUCOSE, FASTING 90 MG/DL (70-100); POTASSIUM SERUM 3.9 MEQ/L (3.5-5.1); SODIUM LEVEL 133 MEQ/L (136-145)
[2021-09-05] MEDS: VITAMIN E 400 INTERNATIONAL UNITS CAP PO SCH (10:11)
[2021-09-05] MEDS: predniSONE 10 MG TAB PO SCH (10:12)
[2021-09-05] MEDS: ASPIRIN 81MG ENTERIC TABLET PO SCH (10:13)
[2021-09-05] MEDS: FERROUS SULFATE 325MG TAB PO SCH (10:13)
[2021-09-05] MEDS: oxyCODONE 10 MG CR TAB PO SCH ×2 (10:13→20:11)
[2021-09-05] MEDS: DOCUSATE SODIUM 100MG CAPSULE PO SCH (10:13)
[2021-09-05] MEDS: PREGABALIN 75 MG CAP(LYRICA) PO SCH ×2 (10:14→20:11)
[2021-09-05] MEDS: SERTRALINE 100 MG TAB PO SCH (10:14)
[2021-09-05] MEDS: ENOXAPARIN 40MG/0.4ML SYRINGE (J1650 PER 10MG) SC SCH (10:15)
[2021-09-05] MEDS: VITAMIN D 1,000 INTERNATIONAL UNITS TABLET PO SCH (10:15)
[2021-09-05] MEDS: lisinopriL 5 MG TAB PO SCH (10:21)
[2021-09-05] MEDS: LIDOCAINE 5% (LIDODERM) PATCH TD SCH (10:27)
[2021-09-05 14:00] VITALS: BP_SYST 106; BP_SYST 132; BP_DIAS 60; BP_DIAS 64
--- NOTE | 2021-09-05 15:26 | IPNPDOC ---
Subjective Date Seen The patient was seen on 09/05/21. Subjective Chief Complaint/HPI Ms. Bustamante is a 61-year-old female with NIDDM, hypertension, spinal canal stenosis, and schizophrenia who has been psychiatrically cleared for admission for intractable low back pain and lower extremity weakness. This morning, she denied any chest pain or dyspnea. She tells me that her pain is controlled with the pain medication. I've added on as needed PO lorazepam for the anxiety. Objective Physical Examination General Exam: Positive: Alert, Cooperative Eye Exam: Positive: EOMI; Negative: Sclera icteric ENT Exam: Positive: Atraumatic Neck Exam: Positive: Supple Chest Exam: Positive: Clear to auscultation; Negative: Rales, Rhonchi, Wheezing Heart Exam: Positive: Tachycardic, Regular Rhythm Abdomen Exam: Positive: Normal bowel sounds, Soft; Negative: Tenderness Neuro Exam: Positive: Normal Speech, Cranial Nerves 3-12 NL Psych Exam: Positive: Mental status NL, Anxiety Assessment /Plan Assessment Ms. Bustamante is a 61-year-old female with NIDDM, hypertension, spinal canal stenosis, and schizophrenia who has been psychiatrically cleared for admission for intractable low back pain and lower extremity weakness. Her pain and weakness is most likely secondary to her severe spinal canal stenosis. I had the patient be transferred to [place] on 08/13/2021 for spinal surgery evaluation for possible cauda equine syndrome. Patient returned with no intervention. Patient has clear psych. I asked the psych provider will the patient need a sitter and the psych provider told me no. Patient will be here for pain control and rehab placement Pain is controlled, but patient is fearful of moving. PT/OT has to strongly encourage her to work with therapy. Plan/VTE VTE Prophylaxis Ordered?: Yes Plan 1. Moderate to severe spinal canal stenosis -Most likely cause to patient's low back pain and frequent falls -Evaluated by spinal surgery at [facility] with no intervention -I have started pain control with acetaminophen, tramadol, and oxycodone -Continue pregabalin Continue Flexeril as needed Completed prednisone course -PT/OT working with patient 2. Schizoaffective disorder, bipolar type -Patient was cleared from psych today -Continue trazodone, sertraline, and haloperidol -Per psych, patient does not need a sitter 3. Dysuria -Patient had dysuria. UA only positive for trace leukocytosis. It is fairly un remarkable 4. Hyperlipidemia -Continue atorvastatin 5. Hypothyroidism -Continue levothyroxine 6. Hypertension -Continue amlodipine and lisinopril 7. DVT ppx -Lovenox Disposition: Pending placement. VS, I&O, 24H, Fishbone Vital Signs/I&O Vital Signs Date Time Temp Pulse Resp B/P (MAP) Pulse Ox O2 Delivery O2 Flow Rate FiO2 09/05/21 15:13 17 09/05/21 14:00 97.5 79 106/60 (75) 90 Room Air I&O- Last 24 Hours up to 6 AM 09/05/21 06:00 Intake Total 1680 ml Output Total 0 ml Balance 1680 ml Laboratory Data 24H LABS Laboratory Tests 2 09/05/21 06:04: Nucleated Red Blood Cells % (auto) 0.0, Anion Gap 4L, Glomerular Filtration Rate > 60.0, Calcium Level 9.5 CBC/BMP Laboratory Tests 09/05/21 06:04 Microbiology Microbiology 09/01/21 Urine Culture - Final, Complete 08/30/21 Blood Culture - Final, Complete NO GROWTH AFTER 5 DAYS 08/30/21 Blood Culture - Final, Complete NO GROWTH AFTER 5 DAYS RYLAND BRADFORD DO Sep 05, 2021 15:26
[2021-09-05] MEDS: ATORVASTATIN 10 MG TAB PO SCH (20:11)
[2021-09-05] MEDS: traZODone 50 MG TAB PO SCH (20:11)
[2021-09-05] MEDS: **NOTE PATIENT COMMENT** MISC XX SCH (20:12)
[2021-09-05 22:00] VITALS: BP 131/64
[2021-09-06] MEDS: traMADol 50 MG TAB PO PRN (00:57)
[2021-09-06] MEDS: oxyCODONE 5MG TAB PO PRN (00:57)
[2021-09-06 06:00] VITALS: BP 180/92
[2021-09-06] MEDS: CYCLOBENZAPRINE 5MG TABLET PO PRN ×2 (06:06→14:56)
[2021-09-06] MEDS: LEVOTHYROXINE 25MCG TABLET (0.025MG) PO SCH (06:06)
[2021-09-06] MEDS: ACETAMINOPHEN TAB 650MG DOSE (2X325MG) PO PRN ×2 (06:06→14:56)
[2021-09-06 06:45] LABS: HEMATOCRIT 38.5 % (36.0-47.0); HEMOGLOBIN 12.7 g/dl (12.0-15.5); MEAN CORPUSCULAR HEMOGLOBIN 28.7 pg (27.0-33.0); MEAN CORPUSCULAR VOLUME 86.9 fl (80.0-96.0); PLATELET COUNT, AUTOMATED 247 10^3/uL (150-450); RED BLOOD COUNT 4.43 10^6/uL (4.00-5.40); WHITE BLOOD COUNT 8.9 10^3/uL (4.0-10.0)
[2021-09-06 07:14] LABS: BLOOD UREA NITROGEN 19 MG/DL (7-18); CALCIUM LEVEL 9.8 MG/DL (8.8-10.2); CARBON DIOXIDE LEVEL 32 MEQ/L (21-32); CHLORIDE LEVEL 99 MEQ/L (98-107); CREATININE FOR GFR 0.85 MG/DL (0.55-1.30); GLOMERULAR FILTRATION RATE > 60.0 (>45); GLUCOSE, FASTING 89 MG/DL (70-100); POTASSIUM SERUM 3.9 MEQ/L (3.5-5.1); SODIUM LEVEL 132 MEQ/L (136-145)
[2021-09-06] MEDS: oxyCODONE 10 MG CR TAB PO SCH ×2 (08:15→21:02)
[2021-09-06] MEDS: ENOXAPARIN 40MG/0.4ML SYRINGE (J1650 PER 10MG) SC SCH (08:16)
[2021-09-06] MEDS: PREGABALIN 75 MG CAP(LYRICA) PO SCH ×2 (08:16→21:01)
[2021-09-06] MEDS: LIDOCAINE 5% (LIDODERM) PATCH TD SCH (08:16)
[2021-09-06] MEDS: DOCUSATE SODIUM 100MG CAPSULE PO SCH (08:16)
[2021-09-06] MEDS: VITAMIN E 400 INTERNATIONAL UNITS CAP PO SCH (08:16)
[2021-09-06] MEDS: VITAMIN D 1,000 INTERNATIONAL UNITS TABLET PO SCH (08:16)
[2021-09-06] MEDS: ASPIRIN 81MG ENTERIC TABLET PO SCH (08:16)
[2021-09-06] MEDS: predniSONE 10 MG TAB PO SCH (11:42)
[2021-09-06] MEDS: lisinopriL 5 MG TAB PO SCH (11:43)
[2021-09-06] MEDS: FERROUS SULFATE 325MG TAB PO SCH (11:43)
[2021-09-06] MEDS: SERTRALINE 100 MG TAB PO SCH (11:43)
--- NOTE | 2021-09-06 12:09 | IPNPDOC ---
Subjective Date Seen The patient was seen on 09/06/21. Subjective Chief Complaint/HPI Ms. Bustamante is a 61-year-old female with NIDDM, hypertension, spinal canal stenosis, and schizophrenia who has been psychiatrically cleared for admission for intractable low back pain and lower extremity weakness. This morning she appears comfortable. Denies any chest pain or dyspnea. I continue to encourage moving with physical therapy. Patient is medically stable. Will make ALC today Objective Physical Examination General Exam: Positive: Alert, Cooperative Eye Exam: Positive: EOMI; Negative: Sclera icteric ENT Exam: Positive: Atraumatic Neck Exam: Positive: Supple Chest Exam: Positive: Clear to auscultation; Negative: Rales, Rhonchi, Wheezing Heart Exam: Positive: Rate Normal, Regular Rhythm Abdomen Exam: Positive: Normal bowel sounds, Soft; Negative: Tenderness Neuro Exam: Positive: Normal Speech, Cranial Nerves 3-12 NL Psych Exam: Positive: Mental status NL, Mood NL Assessment /Plan Assessment Ms. Bustamante is a 61-year-old female with NIDDM, hypertension, spinal canal stenosis, and schizophrenia who has been psychiatrically cleared for admission for intractable low back pain and lower extremity weakness. Her pain and weakness is most likely secondary to her severe spinal canal stenosis. I had the patient be transferred to [place] on 08/13/2021 for spinal surgery evaluation for possible cauda equine syndrome. Patient returned with no intervention. Patient has clear psych. I asked the psych provider will the patient need a sitter and the psych provider told me no. Patient will be here for pain control and rehab placement Pain is controlled, but patient is fearful of moving. PT/OT has to strongly encourage her to work with therapy. Plan/VTE VTE Prophylaxis Ordered?: Yes Plan 1. Moderate to severe spinal canal stenosis -Most likely cause to patient's low back pain and frequent falls -Evaluated by spinal surgery at [facility] with no intervention -I have started pain control with acetaminophen, tramadol, and oxycodone -Continue pregabalin Continue Flexeril as needed Completed prednisone course -PT/OT working with patient 2. Schizoaffective disorder, bipolar type -Patient was cleared from psych today -Continue trazodone, sertraline, and haloperidol -Per psych, patient does not need a sitter 3. Dysuria -Patient had dysuria. UA only positive for trace leukocytosis. It is fairly unremarkable 4. Hyperlipidemia -Continue atorvastatin 5. Hypothyroidism -Continue levothyroxine 6. Hypertension -Continue amlodipine and lisinopril 7. DVT ppx -Lovenox Disposition: Pending placement. We will make her ALC today VS, I&O, 24H, Fishbone Vital Signs/I&O Vital Signs Date Time Temp Pulse Resp B/P (MAP) Pulse Ox O2 Delivery O2 Flow Rate FiO2 09/06/21 09:25 18 98 Room Air 09/06/21 08:16 84 115/60 09/06/21 06:00 97.8 I&O- Last 24 Hours up to 6 AM 09/06/21 06:00 Intake Total 1980 ml Output Total 0 ml Balance 1980 ml Laboratory Data 24H LABS Laboratory Tests 2 09/06/21 06:09: Nucleated Red Blood Cells % (auto) 0.0, Anion Gap 1L, Glomerular Filtration Rate > 60.0, Calcium Level 9.8 CBC/BMP Laboratory Tests 09/06/21 06:09 Microbiology Microbiology 09/01/21 Urine Culture - Final, Complete 08/30/21 Blood Culture - Final, Complete NO GROWTH AFTER 5 DAYS 08/30/21 Blood Culture - Final, Complete NO GROWTH AFTER 5 DAYS RYLAND BRADFORD DO Sep 06, 2021 12:09
[2021-09-06 14:00] VITALS: BP 116/61
[2021-09-06] MEDS: traZODone 50 MG TAB PO SCH (21:01)
[2021-09-06] MEDS: ATORVASTATIN 10 MG TAB PO SCH (21:01)
[2021-09-06] MEDS: **NOTE PATIENT COMMENT** MISC XX SCH (21:14)
[2021-09-06 22:00] VITALS: BP 146/82
[2021-09-07] MEDS: CYCLOBENZAPRINE 5MG TABLET PO PRN (01:12)
[2021-09-07] MEDS: ACETAMINOPHEN TAB 650MG DOSE (2X325MG) PO PRN ×2 (01:12→14:19)
[2021-09-07] MEDS: LEVOTHYROXINE 25MCG TABLET (0.025MG) PO SCH (05:15)
[2021-09-07 08:00] VITALS: BP 150/85
[2021-09-07] MEDS: VITAMIN D 1,000 INTERNATIONAL UNITS TABLET PO SCH (08:50)
[2021-09-07] MEDS: DOCUSATE SODIUM 100MG CAPSULE PO SCH (08:50)
[2021-09-07] MEDS: ASPIRIN 81MG ENTERIC TABLET PO SCH (08:51)
[2021-09-07] MEDS: oxyCODONE 10 MG CR TAB PO SCH ×2 (08:51→20:30)
[2021-09-07] MEDS: FERROUS SULFATE 325MG TAB PO SCH (08:51)
[2021-09-07] MEDS: VITAMIN E 400 INTERNATIONAL UNITS CAP PO SCH (08:51)
[2021-09-07] MEDS: PREGABALIN 75 MG CAP(LYRICA) PO SCH ×2 (08:51→20:26)
[2021-09-07] MEDS: ENOXAPARIN 40MG/0.4ML SYRINGE (J1650 PER 10MG) SC SCH (08:52)
[2021-09-07] MEDS: LIDOCAINE 5% (LIDODERM) PATCH TD SCH (08:52)
[2021-09-07] MEDS: SERTRALINE 100 MG TAB PO SCH (09:23)
[2021-09-07] MEDS: predniSONE 10 MG TAB PO SCH (09:24)
[2021-09-07] MEDS: lisinopriL 5 MG TAB PO SCH (09:25)
[2021-09-07 14:00] VITALS: BP 135/75
[2021-09-07 14:35] VITALS: BP 220/108
[2021-09-07] MEDS: traMADol 50 MG TAB PO PRN (14:40)
[2021-09-07] MEDS: LORazepam 1 MG TAB PO PRN (14:40)
[2021-09-07 15:35] VITALS: BP 123/59
[2021-09-07] MEDS: ATORVASTATIN 10 MG TAB PO SCH (20:26)
[2021-09-07] MEDS: traZODone 50 MG TAB PO SCH (20:31)
[2021-09-07] MEDS: **NOTE PATIENT COMMENT** MISC XX SCH (20:31)
[2021-09-08] MEDS: oxyCODONE 5MG TAB PO PRN (01:12)
[2021-09-08 06:00] VITALS: BP 137/71
[2021-09-08] MEDS: LEVOTHYROXINE 25MCG TABLET (0.025MG) PO SCH (06:00)
[2021-09-08] MEDS: LORazepam 1 MG TAB PO PRN ×2 (06:00→14:32)
[2021-09-08] MEDS: ACETAMINOPHEN TAB 650MG DOSE (2X325MG) PO PRN ×2 (06:00→23:58)
[2021-09-08 06:24] LABS: HEMATOCRIT 37.5 % (36.0-47.0); HEMOGLOBIN 12.2 g/dl (12.0-15.5); MEAN CORPUSCULAR HEMOGLOBIN 28.6 pg (27.0-33.0); MEAN CORPUSCULAR HGB CONC 32.5 g/dl (32.0-36.5); PLATELET COUNT, AUTOMATED 246 10^3/uL (150-450); RED BLOOD COUNT 4.26 10^6/uL (4.00-5.40); WHITE BLOOD COUNT 9.4 10^3/uL (4.0-10.0)
[2021-09-08 06:43] LABS: BLOOD UREA NITROGEN 20 MG/DL (7-18); CALCIUM LEVEL 9.3 MG/DL (8.8-10.2); CARBON DIOXIDE LEVEL 31 MEQ/L (21-32); CHLORIDE LEVEL 100 MEQ/L (98-107); CREATININE FOR GFR 0.86 MG/DL (0.55-1.30); GLOMERULAR FILTRATION RATE > 60.0 (>45); GLUCOSE, FASTING 81 MG/DL (70-100); POTASSIUM SERUM 4.1 MEQ/L (3.5-5.1); SODIUM LEVEL 134 MEQ/L (136-145)
[2021-09-08] MEDS: ASPIRIN 81MG ENTERIC TABLET PO SCH (08:12)
[2021-09-08] MEDS: predniSONE 10 MG TAB PO SCH (08:12)
[2021-09-08] MEDS: oxyCODONE 10 MG CR TAB PO SCH ×2 (08:13→19:53)
[2021-09-08] MEDS: DOCUSATE SODIUM 100MG CAPSULE PO SCH (08:13)
[2021-09-08] MEDS: PREGABALIN 75 MG CAP(LYRICA) PO SCH ×2 (08:14→19:53)
[2021-09-08] MEDS: FERROUS SULFATE 325MG TAB PO SCH (08:14)
[2021-09-08] MEDS: lisinopriL 5 MG TAB PO SCH (08:14)
[2021-09-08] MEDS: VITAMIN E 400 INTERNATIONAL UNITS CAP PO SCH (08:15)
[2021-09-08] MEDS: ENOXAPARIN 40MG/0.4ML SYRINGE (J1650 PER 10MG) SC SCH (08:15)
[2021-09-08] MEDS: VITAMIN D 1,000 INTERNATIONAL UNITS TABLET PO SCH (08:15)
[2021-09-08] MEDS: CYCLOBENZAPRINE 5MG TABLET PO PRN ×2 (08:15→23:58)
[2021-09-08] MEDS: SERTRALINE 100 MG TAB PO SCH (08:15)
[2021-09-08] MEDS: LIDOCAINE 5% (LIDODERM) PATCH TD SCH ×2 (08:16→09:00)
[2021-09-08] MEDS: traMADol 50 MG TAB PO PRN (14:33)
[2021-09-08] MEDS: traZODone 50 MG TAB PO SCH (19:52)
[2021-09-08] MEDS: ATORVASTATIN 10 MG TAB PO SCH (19:52)
[2021-09-08] MEDS: **NOTE PATIENT COMMENT** MISC XX SCH (19:53)
[2021-09-09] MEDS: oxyCODONE 5MG TAB PO PRN ×2 (03:31→13:07)
[2021-09-09] MEDS: LEVOTHYROXINE 25MCG TABLET (0.025MG) PO SCH (05:04)
[2021-09-09] MEDS: LORazepam 1 MG TAB PO PRN (05:25)
[2021-09-09] MEDS: traMADol 50 MG TAB PO PRN ×2 (05:26→16:58)
[2021-09-09 06:00] VITALS: BP 102/66
[2021-09-09] MEDS: ENOXAPARIN 40MG/0.4ML SYRINGE (J1650 PER 10MG) SC SCH (08:45)
[2021-09-09] MEDS: LIDOCAINE 5% (LIDODERM) PATCH TD SCH (08:46)
[2021-09-09] MEDS: VITAMIN D 1,000 INTERNATIONAL UNITS TABLET PO SCH (08:47)
[2021-09-09] MEDS: DOCUSATE SODIUM 100MG CAPSULE PO SCH (08:50)
[2021-09-09] MEDS: predniSONE 10 MG TAB PO SCH (08:50)
[2021-09-09] MEDS: SERTRALINE 100 MG TAB PO SCH (08:51)
[2021-09-09] MEDS: ASPIRIN 81MG ENTERIC TABLET PO SCH (08:51)
[2021-09-09] MEDS: lisinopriL 5 MG TAB PO SCH (08:52)
[2021-09-09] MEDS: PREGABALIN 75 MG CAP(LYRICA) PO SCH ×2 (08:52→20:32)
[2021-09-09] MEDS: FERROUS SULFATE 325MG TAB PO SCH (08:53)
[2021-09-09] MEDS: VITAMIN E 400 INTERNATIONAL UNITS CAP PO SCH (08:54)
[2021-09-09] MEDS: oxyCODONE 10 MG CR TAB PO SCH ×2 (08:54→20:32)
[2021-09-09] MEDS: CYCLOBENZAPRINE 5MG TABLET PO PRN (13:07)
[2021-09-09] MEDS: **NOTE PATIENT COMMENT** MISC XX SCH (20:32)
[2021-09-09] MEDS: ATORVASTATIN 10 MG TAB PO SCH (20:32)
[2021-09-09] MEDS: traZODone 50 MG TAB PO SCH (20:32)
[2021-09-10] MEDS: ACETAMINOPHEN TAB 650MG DOSE (2X325MG) PO PRN ×3 (01:01→23:57)
[2021-09-10] MEDS: CYCLOBENZAPRINE 5MG TABLET PO PRN ×2 (01:01→23:57)
[2021-09-10] MEDS: traMADol 50 MG TAB PO PRN ×3 (05:23→18:56)
[2021-09-10] MEDS: LEVOTHYROXINE 25MCG TABLET (0.025MG) PO SCH (05:24)
[2021-09-10 06:00] VITALS: BP 131/78
[2021-09-10] MEDS: SERTRALINE 100 MG TAB PO SCH (08:17)
[2021-09-10] MEDS: ASPIRIN 81MG ENTERIC TABLET PO SCH (08:17)
[2021-09-10] MEDS: VITAMIN E 400 INTERNATIONAL UNITS CAP PO SCH (08:18)
[2021-09-10] MEDS: PREGABALIN 75 MG CAP(LYRICA) PO SCH ×2 (08:18→20:03)
[2021-09-10] MEDS: oxyCODONE 10 MG CR TAB PO SCH ×2 (08:19→20:03)
[2021-09-10] MEDS: DOCUSATE SODIUM 100MG CAPSULE PO SCH (08:20)
[2021-09-10] MEDS: predniSONE 10 MG TAB PO SCH (08:21)
[2021-09-10] MEDS: VITAMIN D 1,000 INTERNATIONAL UNITS TABLET PO SCH (08:21)
[2021-09-10] MEDS: FERROUS SULFATE 325MG TAB PO SCH (08:22)
[2021-09-10] MEDS: lisinopriL 5 MG TAB PO SCH (08:23)
[2021-09-10] MEDS: ENOXAPARIN 40MG/0.4ML SYRINGE (J1650 PER 10MG) SC SCH (08:23)
[2021-09-10] MEDS: LIDOCAINE 5% (LIDODERM) PATCH TD SCH (09:00)
[2021-09-10] MEDS: oxyCODONE 5MG TAB PO PRN (15:13)
--- NOTE | 2021-09-10 16:54 | MHCR ---
[facility] CONSULTATION DATE: 09/08/2021 HISTORY OF PRESENT ILLNESS: I saw this patient via Telepsychiatry due to the current coronavirus crisis. I was asked to see this 61-year-old woman with significant psychiatric history for what appears to be schizophrenia versus schizoaffective disorder, because the patient is not cooperating with her physical therapy. Apparently, she is being prescribed pain medications, but she continues to say this is not enough, she is still in pain and they question maybe of the patient is still having a lot of anxiety. Of note, this patient had been in a psychiatric unit, I believe, for about a month and she had been discharged from the inpatient unit and transferred directly to the [facility] in [place]. However, they apparently did not feel that she had any acute issues that they could address, so she was sent back and readmitted to the inpatient psychiatric unit, which was from 08/17/2021 until 08/28/2021, at which point, she was transferred to the medical service for, apparently, some physical therapy. The patient still has spinal stenosis and herniated disc. I saw her today. She told me that she is having a lot of anxiety. She states "I'm afraid I'm going to fall." She also says that she has also been in a lot more pain since being transferred from the psychiatric unit to the medical service. She told me that she is anxious. She is not depressed. She is sleeping okay. She has no other complaints. PAST PSYCHIATRIC HISTORY: Please refer to the prior admissions to the inpatient mental health unit, the last one being 08/17/2021 to 08/28/2021 for details of her past history. MENTAL STATUS EXAMINATION: This patient is alert and oriented. She is pleasant and cooperative, verbally spontaneous. There is no thought disorder noted. Her mood is anxious. Affect appropriate. She is not psychotic, suicidal or homicidal. Concentration and memory is good. Insight and judgment is good. DIAGNOSES: 1. Schizoaffective disorder, bipolar type. 2. Cannabis use disorder by history. TREATMENT PLAN: At this point, my recommendation is that she is to be prescribed some lorazepam 1 mg on an as needed basis. I recommend that she gets 1 dose of 1 mg of lorazepam at about 9 o'clock in the morning so that hopefully it will be effective when physical therapy arrives. She is to continue on all her other psychotropic medications to include the Haldol 10 mg, twice a day, Zoloft 100 mg once a day. Please reconsult if there are further problems.
[2021-09-10] MEDS: **NOTE PATIENT COMMENT** MISC XX SCH (20:03)
[2021-09-10] MEDS: ATORVASTATIN 10 MG TAB PO SCH (20:03)
[2021-09-10] MEDS: traZODone 50 MG TAB PO SCH (20:03)
[2021-09-11] MEDS: oxyCODONE 5MG TAB PO PRN ×3 (02:36→15:20)
[2021-09-11] MEDS: LEVOTHYROXINE 25MCG TABLET (0.025MG) PO SCH (05:50)
[2021-09-11] MEDS: traMADol 50 MG TAB PO PRN (05:54)
[2021-09-11 06:00] VITALS: BP 153/88
[2021-09-11 06:50] LABS: HEMATOCRIT 39.7 % (36.0-47.0); HEMOGLOBIN 12.9 g/dl (12.0-15.5); MEAN CORPUSCULAR HGB CONC 32.5 g/dl (32.0-36.5); MEAN CORPUSCULAR VOLUME 86.3 fl (80.0-96.0); PLATELET COUNT, AUTOMATED 261 10^3/uL (150-450); WHITE BLOOD COUNT 10.5 10^3/uL (4.0-10.0)
[2021-09-11 07:00] LABS: BLOOD UREA NITROGEN 18 MG/DL (7-18); CALCIUM LEVEL 9.5 MG/DL (8.8-10.2); CARBON DIOXIDE LEVEL 30 MEQ/L (21-32); CHLORIDE LEVEL 100 MEQ/L (98-107); CREATININE FOR GFR 0.75 MG/DL (0.55-1.30); GLOMERULAR FILTRATION RATE > 60.0 (>45); GLUCOSE, FASTING 86 MG/DL (70-100); SODIUM LEVEL 135 MEQ/L (136-145)
[2021-09-11] MEDS: LIDOCAINE 5% (LIDODERM) PATCH TD SCH (09:25)
[2021-09-11] MEDS: SERTRALINE 100 MG TAB PO SCH (09:25)
[2021-09-11] MEDS: VITAMIN D 1,000 INTERNATIONAL UNITS TABLET PO SCH (09:26)
[2021-09-11] MEDS: ASPIRIN 81MG ENTERIC TABLET PO SCH (09:26)
[2021-09-11] MEDS: DOCUSATE SODIUM 100MG CAPSULE PO SCH (09:26)
[2021-09-11] MEDS: VITAMIN E 400 INTERNATIONAL UNITS CAP PO SCH (09:26)
[2021-09-11] MEDS: FERROUS SULFATE 325MG TAB PO SCH (09:26)
[2021-09-11] MEDS: lisinopriL 5 MG TAB PO SCH (09:27)
[2021-09-11] MEDS: predniSONE 10 MG TAB PO SCH (09:27)
[2021-09-11] MEDS: oxyCODONE 10 MG CR TAB PO SCH ×2 (09:27→20:03)
[2021-09-11] MEDS: ENOXAPARIN 40MG/0.4ML SYRINGE (J1650 PER 10MG) SC SCH (09:28)
[2021-09-11] MEDS: PREGABALIN 75 MG CAP(LYRICA) PO SCH ×2 (09:28→20:02)
[2021-09-11] MEDS: CYCLOBENZAPRINE 5MG TABLET PO PRN (12:07)
[2021-09-11] MEDS: LORazepam 1 MG TAB PO PRN (12:07)
[2021-09-11] MEDS: **NOTE PATIENT COMMENT** MISC XX SCH (20:03)
[2021-09-11] MEDS: ATORVASTATIN 10 MG TAB PO SCH (20:03)
[2021-09-11] MEDS: traZODone 50 MG TAB PO SCH (20:03)
[2021-09-12] MEDS: CYCLOBENZAPRINE 5MG TABLET PO PRN ×3 (00:21→15:57)
[2021-09-12] MEDS: ACETAMINOPHEN TAB 650MG DOSE (2X325MG) PO PRN ×2 (00:21→06:25)
[2021-09-12 05:24] VITALS: BP 140/72
[2021-09-12] MEDS: LEVOTHYROXINE 25MCG TABLET (0.025MG) PO SCH (05:34)
[2021-09-12] MEDS: ENOXAPARIN 40MG/0.4ML SYRINGE (J1650 PER 10MG) SC SCH (07:58)
[2021-09-12] MEDS: DOCUSATE SODIUM 100MG CAPSULE PO SCH (07:59)
[2021-09-12] MEDS: PREGABALIN 75 MG CAP(LYRICA) PO SCH ×2 (07:59→20:32)
[2021-09-12] MEDS: VITAMIN D 1,000 INTERNATIONAL UNITS TABLET PO SCH (07:59)
[2021-09-12] MEDS: FERROUS SULFATE 325MG TAB PO SCH (07:59)
[2021-09-12] MEDS: LORazepam 1 MG TAB PO PRN ×2 (08:01→15:57)
[2021-09-12] MEDS: VITAMIN E 400 INTERNATIONAL UNITS CAP PO SCH (08:01)
[2021-09-12] MEDS: predniSONE 10 MG TAB PO SCH (08:01)
[2021-09-12] MEDS: ASPIRIN 81MG ENTERIC TABLET PO SCH (08:01)
[2021-09-12] MEDS: SERTRALINE 100 MG TAB PO SCH (08:01)
[2021-09-12] MEDS: lisinopriL 5 MG TAB PO SCH (08:01)
[2021-09-12] MEDS: LIDOCAINE 5% (LIDODERM) PATCH TD SCH (08:02)
[2021-09-12] MEDS: oxyCODONE 10 MG CR TAB PO SCH ×2 (08:02→20:33)
[2021-09-12] MEDS: oxyCODONE 5MG TAB PO PRN (15:57)
[2021-09-12 17:35] VITALS: BP 143/79
[2021-09-12] MEDS: traZODone 50 MG TAB PO SCH (20:32)
[2021-09-12] MEDS: ATORVASTATIN 10 MG TAB PO SCH (20:33)
[2021-09-12] MEDS: **NOTE PATIENT COMMENT** MISC XX SCH (20:36)
[2021-09-13] MEDS: LORazepam 1 MG TAB PO PRN ×2 (00:27→09:48)
[2021-09-13] MEDS: oxyCODONE 5MG TAB PO PRN ×2 (00:27→09:49)
[2021-09-13] MEDS: LEVOTHYROXINE 25MCG TABLET (0.025MG) PO SCH (05:51)
[2021-09-13 06:00] VITALS: BP 111/57
[2021-09-13] MEDS: DOCUSATE SODIUM 100MG CAPSULE PO SCH (08:44)
[2021-09-13] MEDS: FERROUS SULFATE 325MG TAB PO SCH (08:45)
[2021-09-13] MEDS: VITAMIN E 400 INTERNATIONAL UNITS CAP PO SCH (08:45)
[2021-09-13] MEDS: ASPIRIN 81MG ENTERIC TABLET PO SCH (08:45)
[2021-09-13] MEDS: PREGABALIN 75 MG CAP(LYRICA) PO SCH ×2 (08:45→20:19)
[2021-09-13] MEDS: LIDOCAINE 5% (LIDODERM) PATCH TD SCH ×2 (08:46→08:50)
[2021-09-13] MEDS: VITAMIN D 1,000 INTERNATIONAL UNITS TABLET PO SCH (08:46)
[2021-09-13] MEDS: ENOXAPARIN 40MG/0.4ML SYRINGE (J1650 PER 10MG) SC SCH (08:46)
[2021-09-13] MEDS: oxyCODONE 10 MG CR TAB PO SCH ×2 (08:47→20:20)
[2021-09-13 09:00] VITALS: BP 115/62
[2021-09-13] MEDS: CYCLOBENZAPRINE 5MG TABLET PO PRN (09:48)
[2021-09-13] MEDS: predniSONE 10 MG TAB PO SCH (11:39)
[2021-09-13] MEDS: SERTRALINE 100 MG TAB PO SCH (11:39)
[2021-09-13] MEDS: lisinopriL 5 MG TAB PO SCH (11:41)
[2021-09-13] MEDS: ANALGESIC BALM CRM 3OZ TOP PRN (13:49)
[2021-09-13] MEDS: ATORVASTATIN 10 MG TAB PO SCH (20:20)
[2021-09-13] MEDS: **NOTE PATIENT COMMENT** MISC XX SCH (20:20)
[2021-09-13] MEDS: traZODone 50 MG TAB PO SCH (20:20)
[2021-09-14] MEDS: ACETAMINOPHEN TAB 650MG DOSE (2X325MG) PO PRN ×2 (05:28→17:17)
[2021-09-14] MEDS: LEVOTHYROXINE 25MCG TABLET (0.025MG) PO SCH (05:28)
[2021-09-14] MEDS: CYCLOBENZAPRINE 5MG TABLET PO PRN (05:29)
[2021-09-14 06:00] VITALS: BP 137/75
[2021-09-14 06:30] LABS: HEMATOCRIT 39.2 % (36.0-47.0); HEMOGLOBIN 12.9 g/dl (12.0-15.5); MEAN CORPUSCULAR HEMOGLOBIN 28.6 pg (27.0-33.0); MEAN CORPUSCULAR HGB CONC 32.9 g/dl (32.0-36.5); MEAN CORPUSCULAR VOLUME 86.9 fl (80.0-96.0); PLATELET COUNT, AUTOMATED 252 10^3/uL (150-450); RED BLOOD COUNT 4.51 10^6/uL (4.00-5.40); WHITE BLOOD COUNT 11.1 10^3/uL (4.0-10.0)
[2021-09-14 06:55] LABS: BLOOD UREA NITROGEN 22 MG/DL (7-18); CALCIUM LEVEL 9.9 MG/DL (8.8-10.2); CARBON DIOXIDE LEVEL 30 MEQ/L (21-32); CHLORIDE LEVEL 99 MEQ/L (98-107); CREATININE FOR GFR 0.86 MG/DL (0.55-1.30); GLOMERULAR FILTRATION RATE > 60.0 (>45); GLUCOSE, FASTING 92 MG/DL (70-100); SODIUM LEVEL 135 MEQ/L (136-145)
[2021-09-14 09:00] VITALS: BP 102/60
[2021-09-14] MEDS: lisinopriL 5 MG TAB PO SCH (09:00)
[2021-09-14] MEDS: LIDOCAINE 5% (LIDODERM) PATCH TD SCH (09:00)
[2021-09-14] MEDS: VITAMIN E 400 INTERNATIONAL UNITS CAP PO SCH (09:50)
[2021-09-14] MEDS: VITAMIN D 1,000 INTERNATIONAL UNITS TABLET PO SCH (09:50)
[2021-09-14] MEDS: predniSONE 10 MG TAB PO SCH (09:50)
[2021-09-14] MEDS: DOCUSATE SODIUM 100MG CAPSULE PO SCH (09:56)
[2021-09-14] MEDS: FERROUS SULFATE 325MG TAB PO SCH (09:56)
[2021-09-14] MEDS: ASPIRIN 81MG ENTERIC TABLET PO SCH (09:56)
[2021-09-14] MEDS: PREGABALIN 75 MG CAP(LYRICA) PO SCH (09:56)
[2021-09-14] MEDS: SERTRALINE 100 MG TAB PO SCH (09:56)
[2021-09-14] MEDS: ENOXAPARIN 40MG/0.4ML SYRINGE (J1650 PER 10MG) SC SCH (09:57)
[2021-09-14] MEDS: oxyCODONE 10 MG CR TAB PO SCH (09:57)
[2021-09-14] MEDS ORDERED: oxyCODONE 5MG TAB PO PRN (13:00)
[2021-09-14] MEDS: oxyCODONE 5MG TAB PO PRN (13:03)
[2021-09-14] MEDS ORDERED: OXYC-403 PO (13:39)
[2021-09-14] MEDS ORDERED: ACET1TAB55 PO (13:39)
[2021-09-14] MEDS ORDERED: PRED10TA2 PO (13:39)
[2021-09-14] MEDS ORDERED: CYCL5TAB PO (13:39)
[2021-09-14] MEDS ORDERED: LYRI75CA PO (13:39)
[2021-09-14] MEDS ORDERED: TRAM50TA2 PO (13:39)
[2021-09-14] MEDS ORDERED: OXYC-517 PO (13:39)
[2021-09-14] MEDS ORDERED: ATIV1TAB7 PO (13:39)
[2021-09-14] MEDS ORDERED: MUSCCRE9 TOP (13:39)
--- NOTE | 2021-09-14 15:04 | DS.PDOC ---
Discharge Summary General Date of Admission Aug 28, 2021 at 14:49 Date of Discharge 09/14/21 Discharge Summary PROCEDURES PERFORMED DURING STAY: [None]. DISCHARGE DIAGNOSES: Moderate to severe spinal canal stenosis causing low back pain and frequent falls. SECONDARY DIAGNOSIS: Obesity Partially compensated communicating hydrocephalus GERD Overactive bladder Vitamin D deficiency Hypertension Hyperlipidemia Pseudoseizures Schizoaffective disorder/ bipolar type H/o Compression fracture C7 old Cervical lumbar spondylosis Hypothyroid Prediabetes diet controlled COMPLICATIONS/CHIEF COMPLAINT: Intactable Low Back Pain, Frequent Falls. HOSPITAL COURSE: Ms. Bustamante is a 61-year-old female with NIDDM diet controlled, hypertension, spinal canal stenosis, and schizoaffective disorder/ bipolar type, marijuana use disorder was admitted for intractable low back pain and lower extremity weakness. Her pain and weakness is secondary to her severe spinal canal stenosis. Patient was transferred to [place] on 08/13/2021 for spinal surgery evaluation for possible cauda equine syndrome. Patient returned with no intervention. Pain is now controlled. PT/OT has been working the the patient. Patient has continued to need assistance with her ADLs and assistance with her mobility. She remains below her baseline functional status so she is being discharged to Subacute rehab for continued rehabilitation. Moderate to severe spinal canal stenosis cause of patient's low back pain and frequent falls Evaluated by spinal surgery at [facility] with no intervention pain control with acetaminophen, tramadol, oxycodone, lyrica, Flexeril taper prednisone Continue rehab after discharge Schizoaffective disorder, bipolar type Continue trazodone, sertraline, and haloperidol Hyperlipidemia Continue atorvastatin Hypothyroidism Continue levothyroxine Hypertension Bp running low normal. stopped amlodipine only continued on lisinopril DISCHARGE MEDICATIONS: Please see below. ALLERGIES: Please see below. PHYSICAL EXAMINATION ON DISCHARGE: VITAL SIGNS: Please see below. General Exam: Positive: Alert, Cooperative Eye Exam: Positive: EOMI; Negative: Sclera icteric ENT Exam: Positive: Atraumatic Neck Exam: Positive: Supple Chest Exam: Positive: Clear to auscultation; Negative: Rales, Rhonchi, Wheezing Heart Exam: Positive: Rate Normal, Regular Rhythm Abdomen Exam: Positive: Normal bowel sounds, Soft; Negative: Tenderness Neuro Exam: Positive: Normal Speech, Cranial Nerves 3-12 NL Psych Exam: Positive: Mental status NL, Mood NL LABORATORY DATA: Please see below. ACTIVITY: [As tolerated]. DIET: As tolerated DISCHARGE PLAN: [place] [facility] DISCHARGE INSTRUCTIONS: PMD in 1 month DISCHARGE CONDITION: [Stable]. TIME SPENT ON DISCHARGE: 35 minutes. Vital Signs/I&Os Vital Signs Date Time Temp Pulse Resp B/P (MAP) Pulse Ox O2 Delivery O2 Flow Rate FiO2 09/14/21 09:57 22 09/14/21 09:00 102/60 09/14/21 06:00 98.9 102 96 Room Air I&O- Last 24 Hours up to 6 AM 09/14/21 06:00 Intake Total 2040 ml Output Total 0 ml Balance 2040 ml Laboratory Data Labs 24H Laboratory Tests 2 09/14/21 06:01: Nucleated Red Blood Cells % (auto) 0.0, Anion Gap 6L, Glomerular Filtration Rate > 60.0, Calcium Level 9.9 CBC/BMP Laboratory Tests 09/14/21 06:01 Discharge Medications Scheduled Aspirin (Aspirin EC) 81 Mg Tab, 81 MG PO DAILY for ., (Reported) Atorvastatin Calcium (Atorvastatin Calcium) 10 Mg Tablet, 10 MG PO QHS for ., (R eported) Cholecalciferol (Vitamin D3) (Vitamin D3) 1,000 Unit Tablet, 2,000 UNITS PO DAILY for ., (Reported) Docusate Sodium (Docusate Sodium) 100 Mg Tab, 100 MG PO DAILY for ., (Reported) Ferrous Sulfate (Ferrous Sulfate) 325 Mg Tablet.dr, 325 MG PO DAILY for ., (Reported) Haloperidol (Haloperidol) 10 Mg Tablet, 10 MG PO BID for ., (Reported) Levothyroxine Sodium (Synthroid) 25 Mcg Tablet, 25 MCG PO DAILY for ., (Reported) Lisinopril (Lisinopril) 5 Mg Tablet, 5 MG PO DAILY for ., (Reported) Oxycodone HCl (Oxycodone HCl ER) 10 Mg Tab.er.12h, 10 MG PO BID Prednisone (Prednisone) 10 Mg Tablet, 10 MG PO TAPER Take 4 tabs daily x 3 days, then 3 tabs daily x 3 days, then 2 tabs daily x 3 days, then 1 tab daily x 3 days and stop Pregabalin (Lyrica) 75 Mg Capsule, 150 MG PO BID Psyllium Husk (with Sugar) (Metamucil Powder) 575 Gm Powder, 1 PKT PO DAILY for ., (Reported) MIX IN WATER Sertraline Hcl (Zoloft) 100 Mg Tablet, 200 MG PO DAILY for ., (Reported) Trazodone HCl (Trazodone HCl) 50 Mg Tablet, 50 MG PO QHS for ., (Reported) Vitamin D3/Folic Acid (Noxifol-D3 2,500 Unit-1 mg Tab) 2,500 Unit Tablet, 1 TAB PO DAILY for deficiency, (Reported) Vitamin E (Dl,Tocopheryl Acet) (Vitamin E) 180 Mg (400 Unit) Capsule, 400 UNITS PO DAILY for ., (Reported) Scheduled PRN Acetaminophen (Acetaminophen) 325 Mg Tablet, 650 MG PO Q6HP PRN for MILD PAIN or TEMP > 101 Aluminum/Magnesium/Simeth (Mag-Al Plus Suspension) 30 Ml Oral.susp, 30 ML FT Q4HP PRN for CONSTIPATION, (Reported) Cyclobenzaprine HCl (Cyclobenzaprine HCl) 5 Mg Tablet, 5 MG PO Q6HP PRN for SPASMS Haloperidol (Haloperidol) 10 Mg Tablet, 10 MG PO Q6HP PRN for ANXIETY/AGITATION, (Reported) Lorazepam (Ativan) 1 Mg Tablet, 1 MG PO Q6HP PRN for ANXIETY Magnesium Hydroxide (Milk of Magnesia) 400 Mg/5 Ml Oral.susp, 400 MG PO DAILYPRN PRN for CONSTIPATION, (Reported) Methyl Salicylate/Menthol (Muscle Rub Cream) 85 Gm Cream..g., 0 DOSE TOP QIDP PRN for Leg pain/leg cramping Oxycodone HCl (Oxycodone HCl) 5 Mg Tablet, 5 MG PO Q8HP PRN for SEVERE PAIN (PS 8-10) Tramadol HCl (Tramadol HCl) 50 Mg Tablet, 50 MG PO Q8HP PRN for MODERATE PAIN (PS 5-7) Allergies Coded Allergies: Penicillins (Verified Allergy, Unknown, rash/hives, 05/21/20) Sulfa (Sulfonamide Antibiotics) (Verified Allergy, Unknown, n/v, 05/21/20) "I get deathly ill, I feel like I'm dying." fluoxetine (Verified Allergy, Unknown, SI, 05/21/20) thioridazine (Verified Allergy, Unknown, 05/21/20) valproic acid (Verified Allergy, Unknown, SEDATION, 05/21/20) Gabriela Lopez MD Sep 14, 2021 13:27
[2021-09-15] MEDS ORDERED: predniSONE 20 MG TAB PO SCH (09:00)
== END 2021-09-14 17:40 | DRG 552 ==
LOC: M ED INP 14:49 → M MS5PR 14:50
PROVIDERS: ADMIT Internal Medicine; ATTEND Internal Medicine Nephrology
DX: M48.061 Spinal stenosis, lumbar region without neurogenic claudication (principal); G91.0 Communicating hydrocephalus; F25.0 Schizoaffective disorder, bipolar type; I12.9 Hypertensive chronic kidney disease with stage 1 through stage 4 chronic kidney disease, or unspecified chronic kidney disease; E66.9 Obesity, unspecified; E55.9 Vitamin D deficiency, unspecified; R29.6 Repeated falls; E78.5 Hyperlipidemia, unspecified; M47.812 Spondylosis without myelopathy or radiculopathy, cervical region; M47.816 Spondylosis without myelopathy or radiculopathy, lumbar region; R56.9 Unspecified convulsions; F31.9 Bipolar disorder, unspecified; E03.9 Hypothyroidism, unspecified; F12.90 Cannabis use, unspecified, uncomplicated; Z79.82 Long term (current) use of aspirin; Z79.899 Other long term (current) drug therapy; Z88.0 Allergy status to penicillin; Z88.2 Allergy status to sulfonamides; Z88.8 Allergy status to other drugs, medicaments and biological substances; N18.30 Chronic kidney disease, stage 3 unspecified; E11.9 Type 2 diabetes mellitus without complications; Z87.891 Personal history of nicotine dependence

== ENCOUNTER → 2022-06-27 | Outpatient (CLI) | payer MEDICARE, MEDICAID ==
[~2022-06-27] MED LIST changes: +ACET32TAB PO; +CYCL5TAB PO; -D31000TA2 PO; +HALO10TA2 PO; -HALO5TA PO; +HALO5TAB33 PO; +LEVO1TAB39 PO; -LEVO500T3 PO; -LISI-898 PO; +LISI5TAB11 PO; +LYRI75CA PO; +MILK400S19 PO; +MUSCCRE9 TOP; +MYLASSUD FT; +NOXI1TAB PO; +OXYC-403 PO; +OXYC-517 PO; +PERCOCET PO; +PRED10TA2 PO; +TRAM50TA2 PO; +VITA100093 PO
== END ==
LOC: M PAIN 09:00
PROVIDERS: ATTEND Nurse Practitioner Family
DX: M48.061 Spinal stenosis, lumbar region without neurogenic claudication (principal); M48.062 Spinal stenosis, lumbar region with neurogenic claudication; R73.03 Prediabetes; I10 Essential (primary) hypertension; E78.00 Pure hypercholesterolemia, unspecified; F41.9 Anxiety disorder, unspecified; F32.A Depression, unspecified; F20.0 Paranoid schizophrenia; H40.9 Unspecified glaucoma; M51.16 Intervertebral disc disorders with radiculopathy, lumbar region; D64.9 Anemia, unspecified; N32.81 Overactive bladder; F50.9 Eating disorder, unspecified; K21.9 Gastro-esophageal reflux disease without esophagitis; H91.92 Unspecified hearing loss, left ear; E73.9 Lactose intolerance, unspecified; Z99.3 Dependence on wheelchair; Z79.01 Long term (current) use of anticoagulants; Z79.82 Long term (current) use of aspirin; Z79.899 Other long term (current) drug therapy; Z79.891 Long term (current) use of opiate analgesic; Z87.891 Personal history of nicotine dependence; Z97.4 Presence of external hearing-aid; Z88.0 Allergy status to penicillin; Z88.2 Allergy status to sulfonamides; Z88.8 Allergy status to other drugs, medicaments and biological substances; M54.50 Low back pain, unspecified
CPT/HCPCS: 72114; G0463

== ENCOUNTER → 2022-06-27 | Outpatient (CLI) | payer MEDICARE, MEDICAID | LOC: M RAD 10:27 | PROVIDERS: ATTEND Anesthesiology | DX: M54.50 Low back pain, unspecified (principal) ==

== ENCOUNTER → 2022-07-11 | Outpatient (CLI) | payer MEDICARE, MEDICAID | LOC: M WHC 14:32 | PROVIDERS: ATTEND Anesthesiology | DX: M48.061 Spinal stenosis, lumbar region without neurogenic claudication (principal) ==

== ENCOUNTER → 2022-07-25 | Outpatient (CLI) | payer MEDICARE, MEDICAID | LOC: M PAIN 08:30 | PROVIDERS: ATTEND Anesthesiology | DX: M48.062 Spinal stenosis, lumbar region with neurogenic claudication (principal); G89.29 Other chronic pain; Z99.3 Dependence on wheelchair; I10 Essential (primary) hypertension; Z86.59 Personal history of other mental and behavioral disorders; Z87.891 Personal history of nicotine dependence; Z88.0 Allergy status to penicillin; Z88.2 Allergy status to sulfonamides; Z88.8 Allergy status to other drugs, medicaments and biological substances; Z91.011 Allergy to milk products; Z79.01 Long term (current) use of anticoagulants; Z79.82 Long term (current) use of aspirin; Z79.891 Long term (current) use of opiate analgesic; Z79.899 Other long term (current) drug therapy ==

== ENCOUNTER → 2022-08-16 | Outpatient (CLI) | payer MEDICARE, MEDICAID ==
[~2022-08-16] MED LIST changes: -CLOZ100T2 PO; +CLOZ100T5 PO; -CLOZ200T PO; +CLOZ200T4 PO
== END ==
LOC: M PLAIMG 11:03
PROVIDERS: ATTEND Anesthesiology
DX: M48.061 Spinal stenosis, lumbar region without neurogenic claudication (principal); M47.9 Spondylosis, unspecified

== ENCOUNTER → 2022-10-02 | Outpatient (CLI) | payer MEDICARE, MEDICAID ==
[~2022-10-02] MED LIST changes: +VITA180C2 PO; -VITA400C81 PO
== END ==
LOC: M PLAIMG 12:09
PROVIDERS: ATTEND Anesthesiology
DX: M54.2 Cervicalgia (principal)

== ENCOUNTER → 2022-10-23 | Outpatient (CLI) | payer MEDICARE, MEDICAID | LOC: M PAIN 09:30 | PROVIDERS: ATTEND Nurse Practitioner Family | DX: M48.062 Spinal stenosis, lumbar region with neurogenic claudication (principal); G89.29 Other chronic pain; I10 Essential (primary) hypertension; Z86.59 Personal history of other mental and behavioral disorders; Z86.718 Personal history of other venous thrombosis and embolism; Z87.891 Personal history of nicotine dependence; Z88.0 Allergy status to penicillin; Z88.2 Allergy status to sulfonamides; Z88.8 Allergy status to other drugs, medicaments and biological substances; Z91.011 Allergy to milk products; Z79.01 Long term (current) use of anticoagulants; Z79.82 Long term (current) use of aspirin; Z79.891 Long term (current) use of opiate analgesic; Z79.899 Other long term (current) drug therapy ==

== ENCOUNTER → 2022-12-03 | Outpatient (CLI) | payer MEDICARE, MEDICAID ==
[~2022-12-03] MED LIST changes: -BENZ-52 PO; +BENZ1TAB5 PO
== END ==
LOC: M PAIN 15:15
PROVIDERS: ATTEND Nurse Practitioner Family
DX: M79.10 Myalgia, unspecified site (principal); G89.29 Other chronic pain; I10 Essential (primary) hypertension; Z86.59 Personal history of other mental and behavioral disorders; Z86.718 Personal history of other venous thrombosis and embolism; Z87.891 Personal history of nicotine dependence; Z88.0 Allergy status to penicillin; Z88.2 Allergy status to sulfonamides; Z88.8 Allergy status to other drugs, medicaments and biological substances; Z91.011 Allergy to milk products; Z79.01 Long term (current) use of anticoagulants; Z79.82 Long term (current) use of aspirin; Z79.891 Long term (current) use of opiate analgesic; Z79.899 Other long term (current) drug therapy

== ENCOUNTER → 2023-01-03 | Outpatient (CLI) | payer MEDICARE, MEDICAID ==
[~2023-01-03] MED LIST changes: +BUPIVACAINE HCL 0.25% 10ML VIAL As Ordered ONE; +BUPIVACAINE HCL 0.25% 30ML VIAL As Ordered ONE; -OXYC-403 PO; +OXYC-673 PO; +TRIAMCINOLONE ACETONIDE SUSP 40MG/ML 1ML VIAL As Ordered ONE; +diazePAM 5MG TABLET As Ordered ONE; +oxyCODONE 5MG TAB As Ordered ONE
== END ==
LOC: M PAIN 16:00
PROVIDERS: ATTEND Anesthesiology
DX: M79.18 Myalgia, other site (principal); G89.29 Other chronic pain; I10 Essential (primary) hypertension; Z86.59 Personal history of other mental and behavioral disorders; Z87.891 Personal history of nicotine dependence; Z88.0 Allergy status to penicillin; Z88.2 Allergy status to sulfonamides; Z88.8 Allergy status to other drugs, medicaments and biological substances; Z91.011 Allergy to milk products

== ENCOUNTER 2023-01-19 19:15 | Inpatient (IN) | payer MEDICAID, MEDICARE ==
[~2023-01-19 19:15] MED LIST changes: -BUPIVACAINE HCL 0.25% 10ML VIAL As Ordered ONE; -BUPIVACAINE HCL 0.25% 30ML VIAL As Ordered ONE; -TRIAMCINOLONE ACETONIDE SUSP 40MG/ML 1ML VIAL As Ordered ONE; -diazePAM 5MG TABLET As Ordered ONE; -oxyCODONE 5MG TAB As Ordered ONE
[2023-01-19] MEDS ORDERED: PERCOCET 5MG/325MG TAB PO ONE (20:30)
[2023-01-19 21:27] LABS: HEMATOCRIT 38.6 % (36.0-47.0); HEMOGLOBIN 12.7 g/dl (12.0-15.5); MEAN CORPUSCULAR HEMOGLOBIN 29.5 pg (27.0-33.0); MEAN CORPUSCULAR HGB CONC 32.9 g/dl (32.0-36.5); MEAN CORPUSCULAR VOLUME 89.6 fl (80.0-96.0); PLATELET COUNT, AUTOMATED 259 10^3/uL (150-450); RED BLOOD COUNT 4.31 10^6/uL (4.00-5.40); WHITE BLOOD COUNT 8.1 10^3/uL (4.0-10.0)
[2023-01-19 21:43] LABS: AMPHETAMINES LEVEL URINE NEGATIVE (NEGATIVE); BARBITURATES URINE NEGATIVE (NEGATIVE); BENZODIAZEPINES URINE NEGATIVE (NEGATIVE); CANNABINOIDS URINE NEGATIVE (NEGATIVE); COCAINE METABOLITE URINE NEGATIVE (NEGATIVE); METHADONE URINE NEGATIVE (NEGATIVE); OPIATES URINE NEGATIVE (NEGATIVE); PHENCYCLIDINE URINE NEGATIVE (NEGATIVE)
[2023-01-19] MEDS ORDERED: ROPI1TAB3 PO (21:52)
[2023-01-19] MEDS ORDERED: BUSP10TA PO (21:52)
[2023-01-19] MEDS ORDERED: MUSC1CRE TOP (21:52)
[2023-01-19] MEDS ORDERED: OXYC-517 PO (21:52)
[2023-01-19] MEDS ORDERED: GABA-1171 PO (21:52)
[2023-01-19] MEDS ORDERED: XARE20TA PO (21:52)
[2023-01-19] MEDS ORDERED: MELATAB3 PO (21:52)
[2023-01-19] MEDS ORDERED: OXYC10TA12 PO (21:52)
[2023-01-19] MEDS ORDERED: CYCL-707 PO (21:52)
[2023-01-19] MEDS ORDERED: HOME MED LIST COMPLETE! XX SCH (21:55)
[2023-01-19 21:58] LABS: ETHYL ALCOHOL (ETHANOL) < 0.003 % (0.000-0.010)
[2023-01-19 22:00] LABS: ACETAMINOPHEN LEVEL < 2.0 UG/ML (10.0-20.0); SALICYLATE LEVEL < 3.0 MG/DL (<30)
[2023-01-19 22:04] LABS: ALKALINE PHOSPHATASE 84 U/L (46-116); ALT/SGPT 14 U/L (7.0-40); AST/SGOT 14 U/L (<34); BILIRUBIN,DIRECT 0.1 MG/DL (<0.4); BILIRUBIN,TOTAL 0.4 MG/DL (0.3-1.2); BLOOD UREA NITROGEN 27 MG/DL (9-23); CALCIUM LEVEL 9.7 MG/DL (8.3-10.6); CARBON DIOXIDE LEVEL 27 MMOL/L (20-31); CHLORIDE LEVEL 102 MMOL/L (98-107); CREATININE FOR GFR 0.84 MG/DL (0.55-1.30); GLOMERULAR FILTRATION RATE > 60.0 (>45); GLUCOSE, FASTING 106 MG/DL (74-106); POTASSIUM SERUM 4.4 MMOL/L (3.5-5.1); SODIUM LEVEL 136 MMOL/L (136-145); THYROID STIMULATING HORMONE 1.535 uIU/ML (0.55-4.78); TOTAL PROTEIN 6.7 G/DL (5.7-8.2)
[2023-01-19] MEDS ORDERED: amLODIPine 5 MG TAB PO ONE (22:35)
[2023-01-19] MEDS ORDERED: CYCLOBENZAPRINE 5MG TABLET PO ONE (23:50)
[2023-01-20] MEDS ORDERED: MAALOX 30 ML SUSP *UDC PO PRN (06:20)
[2023-01-20] MEDS ORDERED: MOM 30ML SUSPENSION UDC PO PRN (06:20)
[2023-01-20] MEDS ORDERED: NICOTINE 21MG/24HR 1 EA TRANSDERMAL TD PRN (06:20)
[2023-01-20] MEDS: LEVOTHYROXINE 25MCG TABLET (0.025MG) PO SCH (07:45)
[2023-01-20] MEDS: ACETAMINOPHEN TAB 650MG DOSE (2X325MG) PO PRN ×2 (07:46→14:33)
[2023-01-20 08:49] VITALS: BP 186/80
[2023-01-20] MEDS: GABAPENTIN 100 MG CAP PO SCH ×2 (09:19→20:03)
[2023-01-20] MEDS: CYCLOBENZAPRINE 10MG TABLET PO SCH ×2 (09:20→20:04)
[2023-01-20] MEDS: oxyCODONE 5MG TAB PO SCH ×2 (09:20→20:04)
[2023-01-20] MEDS: ASPIRIN 81MG ENTERIC TABLET PO SCH (09:21)
[2023-01-20] MEDS: busPIRone 10 MG TAB PO SCH ×2 (09:21→20:04)
[2023-01-20] MEDS: lisinopriL 5 MG TAB PO SCH (09:21)
[2023-01-20] MEDS: oxyCODONE 5MG TAB PO PRN (15:32)
[2023-01-20 16:33] VITALS: BP 158/92
[2023-01-20] MEDS: SERTRALINE 100 MG TAB PO SCH (20:04)
[2023-01-20] MEDS: traZODone 25MG PER 1/2 TABLET PO PRN (20:04)
[2023-01-20] MEDS: RIVAROXABAN 20MG TAB (XARELTO) PO SCH (20:04)
[2023-01-20] MEDS: rOPINIRole 1MG TAB PO SCH (20:04)
[2023-01-20] MEDS: ATORVASTATIN 10 MG TAB PO SCH (20:04)
[2023-01-20] MEDS: ANALGESIC BALM CRM 3OZ TOP SCH (22:22)
[2023-01-21] MEDS: LEVOTHYROXINE 25MCG TABLET (0.025MG) PO SCH (05:30)
[2023-01-21] MEDS: oxyCODONE 5MG TAB PO PRN ×2 (06:14→18:09)
[2023-01-21 06:28] VITALS: BP 159/82
[2023-01-21] MEDS: ASPIRIN 81MG ENTERIC TABLET PO SCH (08:09)
[2023-01-21] MEDS: GABAPENTIN 100 MG CAP PO SCH ×2 (08:09→20:54)
[2023-01-21] MEDS: lisinopriL 5 MG TAB PO SCH (08:10)
[2023-01-21] MEDS: CYCLOBENZAPRINE 10MG TABLET PO SCH ×2 (08:10→20:54)
[2023-01-21] MEDS: oxyCODONE 5MG TAB PO SCH ×2 (08:10→20:55)
[2023-01-21] MEDS: busPIRone 10 MG TAB PO SCH ×2 (08:10→20:54)
[2023-01-21] MEDS: ACETAMINOPHEN TAB 650MG DOSE (2X325MG) PO PRN (11:22)
[2023-01-21] MEDS ORDERED: **hydrALAZINE** 10 MG TAB PO PRN (12:20)
[2023-01-21] MEDS ORDERED: **hydrALAZINE HCL** 25 MG TAB PO PRN (12:35)
[2023-01-21 15:26] VITALS: BP 128/69
[2023-01-21] MEDS: rOPINIRole 1MG TAB PO SCH (20:54)
[2023-01-21] MEDS: RIVAROXABAN 20MG TAB (XARELTO) PO SCH (20:54)
[2023-01-21] MEDS: SERTRALINE 100 MG TAB PO SCH (20:54)
[2023-01-21] MEDS: ATORVASTATIN 10 MG TAB PO SCH (20:54)
[2023-01-21] MEDS: ANALGESIC BALM CRM 3OZ TOP SCH (20:57)
[2023-01-22] MEDS: LEVOTHYROXINE 25MCG TABLET (0.025MG) PO SCH (05:55)
[2023-01-22] MEDS: oxyCODONE 5MG TAB PO PRN ×2 (06:46→19:20)
[2023-01-22] MEDS: ACETAMINOPHEN TAB 650MG DOSE (2X325MG) PO PRN ×3 (07:43→21:32)
[2023-01-22 08:47] LABS: CHOLESTEROL RISK RATIO 1.87 (<5); HDL CHOLESTEROL 77.7 MG/DL (>40); LDL CHOLESTEROL 61.1 MG/DL (<100); NON-HDL-C 68.3 MG/DL
[2023-01-22] MEDS: busPIRone 10 MG TAB PO SCH ×2 (10:20→21:29)
[2023-01-22] MEDS: oxyCODONE 5MG TAB PO SCH ×2 (10:21→22:22)
[2023-01-22] MEDS: CYCLOBENZAPRINE 10MG TABLET PO SCH ×2 (10:22→21:29)
[2023-01-22] MEDS: GABAPENTIN 100 MG CAP PO SCH ×2 (10:22→21:29)
[2023-01-22] MEDS: ASPIRIN 81MG ENTERIC TABLET PO SCH (10:22)
[2023-01-22 10:37] VITALS: BP 192/110
[2023-01-22 13:57] VITALS: BP 128/72
[2023-01-22 20:40] VITALS: BP 116/57
[2023-01-22] MEDS: ANALGESIC BALM CRM 3OZ TOP SCH (21:29)
[2023-01-22] MEDS: ATORVASTATIN 10 MG TAB PO SCH (21:30)
[2023-01-22] MEDS: RIVAROXABAN 20MG TAB (XARELTO) PO SCH (21:30)
[2023-01-22] MEDS: rOPINIRole 1MG TAB PO SCH (21:30)
[2023-01-22] MEDS: SERTRALINE 100 MG TAB PO SCH (21:31)
[2023-01-22] MEDS: traZODone 25MG PER 1/2 TABLET PO PRN (22:46)
[2023-01-23] MEDS: LEVOTHYROXINE 25MCG TABLET (0.025MG) PO SCH (05:45)
[2023-01-23 06:38] VITALS: BP 139/74
[2023-01-23] MEDS: oxyCODONE 5MG TAB PO PRN (07:48)
[2023-01-23] MEDS: ACETAMINOPHEN TAB 650MG DOSE (2X325MG) PO PRN ×2 (07:49→14:33)
[2023-01-23] MEDS: busPIRone 10 MG TAB PO SCH (09:29)
[2023-01-23] MEDS: CYCLOBENZAPRINE 10MG TABLET PO SCH (09:29)
[2023-01-23] MEDS: ASPIRIN 81MG ENTERIC TABLET PO SCH (09:29)
[2023-01-23] MEDS: GABAPENTIN 100 MG CAP PO SCH (09:29)
[2023-01-23 10:26] VITALS: BP 154/90
[2023-01-23] MEDS: oxyCODONE 5MG TAB PO SCH (10:26)
== END 2023-01-23 15:48 | disposition home or self-care (01) | DRG 885 ==
LOC: M ED 19:15 → M ED INP 01-20 06:19 → M PSY 01-20 09:02
PROVIDERS: ADMIT Student in an Organized Health Care Education/Training Program; ATTEND Psychiatry & Neurology Psychiatry
DX: F25.0 Schizoaffective disorder, bipolar type (principal); R45.851 Suicidal ideations; Z88.0 Allergy status to penicillin; Z88.2 Allergy status to sulfonamides; Z88.8 Allergy status to other drugs, medicaments and biological substances; Z79.82 Long term (current) use of aspirin; Z79.899 Other long term (current) drug therapy; I10 Essential (primary) hypertension; E03.9 Hypothyroidism, unspecified; E78.5 Hyperlipidemia, unspecified; G25.81 Restless legs syndrome; Z86.718 Personal history of other venous thrombosis and embolism; E11.51 Type 2 diabetes mellitus with diabetic peripheral angiopathy without gangrene; G40.309 Generalized idiopathic epilepsy and epileptic syndromes, not intractable, without status epilepticus; K21.9 Gastro-esophageal reflux disease without esophagitis

== ENCOUNTER → 2023-02-08 | Outpatient (CLI) | payer MEDICARE, MEDICAID ==
[~2023-02-08] MED LIST changes: +BUSP10TA PO; +CYCL-707 PO; +GABA-1171 PO; +MELATAB3 PO; +MUSC1CRE TOP; +OXYC10TA12 PO; +ROPI1TAB3 PO; +XARE20TA PO
== END ==
LOC: M PAIN 13:45
PROVIDERS: ATTEND Nurse Practitioner Family
DX: M48.062 Spinal stenosis, lumbar region with neurogenic claudication (principal); G89.29 Other chronic pain; Z87.891 Personal history of nicotine dependence; Z79.01 Long term (current) use of anticoagulants; Z79.82 Long term (current) use of aspirin; Z79.899 Other long term (current) drug therapy

== ENCOUNTER → 2023-03-22 | Outpatient (CLI) | payer MEDICARE, MEDICAID | LOC: M PAIN 13:45 | PROVIDERS: ATTEND Nurse Practitioner Family | DX: M48.062 Spinal stenosis, lumbar region with neurogenic claudication (principal); G89.29 Other chronic pain; E11.9 Type 2 diabetes mellitus without complications; I10 Essential (primary) hypertension; Z86.59 Personal history of other mental and behavioral disorders; Z86.718 Personal history of other venous thrombosis and embolism; Z87.891 Personal history of nicotine dependence; Z88.0 Allergy status to penicillin; Z88.2 Allergy status to sulfonamides; Z88.8 Allergy status to other drugs, medicaments and biological substances; Z91.011 Allergy to milk products; Z79.01 Long term (current) use of anticoagulants; Z79.82 Long term (current) use of aspirin; Z79.899 Other long term (current) drug therapy ==

== ENCOUNTER 2024-04-05 08:31 | Inpatient (IN) | payer OTHER, MEDICAID ==
[~2024-04-05] VITALS: Ht 167.6 cm; Wt 87.3 kg
[~2024-04-05 08:31] MED LIST changes: +ACET250T18 PO; -ACET250T2 PO; +DICL100G10 TOP; -DICL1GEL3 TOP; +DIPH1TAB80 PO; -DIPH2.5T14 PO; -GABA-283 PO; +GABA-284 PO; -OXYB5TAB10 PO; +OXYB5TAB14 PO; -PREG100C PO; +PREG100C2 PO; -ROPI1TAB3 PO; +ROPI1TAB73 PO
[2024-04-05 09:03] LABS: HEMATOCRIT 40.3 % (36.0-47.0); HEMOGLOBIN 13.8 g/dl (12.0-15.5); MEAN CORPUSCULAR HEMOGLOBIN 29.2 pg (27.0-33.0); MEAN CORPUSCULAR HGB CONC 34.2 g/dl (32.0-36.5); MEAN CORPUSCULAR VOLUME 85.4 fl (80.0-96.0); PLATELET COUNT, AUTOMATED 298 10^3/uL (150-450); RED BLOOD COUNT 4.72 10^6/uL (4.00-5.40); WHITE BLOOD COUNT 7.7 10^3/uL (4.0-10.0)
[2024-04-05 09:35] LABS: ETHYL ALCOHOL (ETHANOL) < 0.003 % (0.000-0.010)
[2024-04-05 09:36] LABS: SALICYLATE LEVEL < 3.0 MG/DL (<30)
[2024-04-05 09:37] LABS: ALBUMIN 3.6 G/DL (3.2-5.2); ALKALINE PHOSPHATASE 87 U/L (46-116); ALT/SGPT 21 U/L (7.0-40); AST/SGOT 9 U/L (<34); BILIRUBIN,DIRECT 0.1 MG/DL (<0.4); BILIRUBIN,TOTAL 0.6 MG/DL (0.3-1.2); BLOOD UREA NITROGEN 25 MG/DL (9-23); CARBON DIOXIDE LEVEL 23 MMOL/L (20-31); CHLORIDE LEVEL 107 MMOL/L (98-107); CREATININE FOR GFR 0.99 MG/DL (0.55-1.30); GLOMERULAR FILTRATION RATE > 60.0 (>45); GLUCOSE, FASTING 121 MG/DL (74-106); POTASSIUM SERUM 4.3 MMOL/L (3.5-5.1); SODIUM LEVEL 140 MMOL/L (136-145); TOTAL PROTEIN 6.6 G/DL (5.7-8.2)
[2024-04-05] MEDS ORDERED: TIZA10TA PO (10:48)
[2024-04-05] MEDS ORDERED: OXYB-54 PO (10:48)
[2024-04-05] MEDS ORDERED: HYDR1CAP25 PO (10:48)
[2024-04-05] MEDS ORDERED: HOME MED LIST COMPLETE! XX SCH (10:50)
[2024-04-05 18:04] LABS: AMPHETAMINES LEVEL URINE NEGATIVE (NEGATIVE)
[2024-04-05 18:05] LABS: BARBITURATES URINE NEGATIVE (NEGATIVE); BENZODIAZEPINES URINE NEGATIVE (NEGATIVE); CANNABINOIDS URINE NEGATIVE (NEGATIVE); COCAINE METABOLITE URINE NEGATIVE (NEGATIVE); METHADONE URINE NEGATIVE (NEGATIVE); OPIATES URINE NEGATIVE (NEGATIVE); PHENCYCLIDINE URINE NEGATIVE (NEGATIVE)
[2024-04-05] MEDS ORDERED: IBUPROFEN 400MG TAB PO PRN (18:25)
[2024-04-05] MEDS ORDERED: MAALOX 30 ML SUSP *UDC PO PRN (18:25)
[2024-04-05] MEDS ORDERED: MOM 30ML SUSPENSION UDC PO PRN (18:25)
[2024-04-05] MEDS ORDERED: diphenhydrAMINE 25MG CAP PO PRN (18:25)
[2024-04-05] MEDS: lisinopriL 5 MG TAB PO ONE (18:43)
[2024-04-05] MEDS: RIVAROXABAN 20MG TAB (XARELTO) PO ONE (18:44)
[2024-04-05 22:14] VITALS: BP 167/83; TEMP 98.3; O2SAT 98
[2024-04-06] MEDS: traZODone 50 MG TAB PO PRN (00:17)
[2024-04-06] MEDS: ACETAMINOPHEN TAB 650MG DOSE (2X325MG) PO PRN (00:17)
[2024-04-06] MEDS ORDERED: lisinopriL 5 MG TAB PO SCH (09:00)
[2024-04-06] MEDS: SERTRALINE HCL 25 MG TABLET PO SCH (12:59)
[2024-04-06] MEDS: LEVOTHYROXINE 25MCG TABLET (0.025MG) PO SCH (12:59)
[2024-04-06] MEDS: busPIRone 10 MG TAB PO SCH (16:12)
[2024-04-06 18:00] VITALS: BP 168/102; TEMP 97.4; O2SAT 100
[2024-04-06] MEDS: oxyBUTYnin *DITROPAN XL* 5 MG TABCR PO SCH (21:05)
[2024-04-06] MEDS: RIVAROXABAN 20MG TAB (XARELTO) PO SCH (21:05)
[2024-04-06] MEDS: rOPINIRole 1MG TAB PO SCH (21:05)
[2024-04-06] MEDS: tiZANidine 4 MG TAB PO SCH (21:05)
[2024-04-06 21:59] VITALS: BP 169/86; TEMP 97; O2SAT 97
[2024-04-07 01:30] VITALS: BP 155/90; TEMP 99.1; O2SAT 97
[2024-04-07 06:58] VITALS: BP 164/92; TEMP 98.1; O2SAT 99
[2024-04-07 07:39] VITALS: BP 147/95; TEMP 97.4; O2SAT 94
[2024-04-07] MEDS ORDERED: lisinopriL 5 MG TAB PO SCH (09:00)
== END 2024-04-07 07:51 | disposition home or self-care (01) | DRG 885 ==
LOC: EDBD 08:31 → M ED 08:31 → M ED INP 18:22 → M PSY 22:12
PROVIDERS: ADMIT Student in an Organized Health Care Education/Training Program; ATTEND Student in an Organized Health Care Education/Training Program
DX: F25.9 Schizoaffective disorder, unspecified (principal); R45.851 Suicidal ideations; Z91.148 Patient's other noncompliance with medication regimen for other reason; R56.9 Unspecified convulsions; Z88.2 Allergy status to sulfonamides; Z88.0 Allergy status to penicillin; Z88.8 Allergy status to other drugs, medicaments and biological substances; Z79.899 Other long term (current) drug therapy; E78.5 Hyperlipidemia, unspecified; G25.81 Restless legs syndrome; E03.9 Hypothyroidism, unspecified; G89.29 Other chronic pain; Z86.718 Personal history of other venous thrombosis and embolism; M54.59 Other low back pain; I10 Essential (primary) hypertension

== ENCOUNTER 2024-04-07 07:45 | Observation (INO) | payer OTHER, MEDICAID ==
[~2024-04-07] VITALS: Ht 165.1 cm; Wt 83.7 kg
[2024-04-07] MEDS: NS 1,000 ML IV SCH
[~2024-04-07 07:45] MED LIST changes: +HYDR1CAP25 PO; +OXYB-54 PO; +TIZA10TA PO
[2024-04-07 08:10] VITALS: BP 143/76; TEMP 98.5; O2SAT 97
[2024-04-07 08:59] LABS: BASO % 0.3 % (0.0-1.0); HEMATOCRIT 40.1 % (36.0-47.0); HEMOGLOBIN 13.7 g/dl (12.0-15.5); LYMPH # 1.6 10^3/uL (1.5-5.0); LYMPH % 12.5 % (24.0-44.0); MEAN CORPUSCULAR HGB CONC 34.2 g/dl (32.0-36.5); MEAN CORPUSCULAR VOLUME 84.8 fl (80.0-96.0); MONO # 0.6 10^3/uL (0.0-0.8); MONO % 4.7 % (2.0-8.0); NEUTROPHILS # 10.4 10^3/uL (1.5-8.5); NEUTROPHILS % 82.1 % (36.0-66.0); PLATELET COUNT, AUTOMATED 284 10^3/uL (150-450); RED BLOOD COUNT 4.73 10^6/uL (4.00-5.40); WHITE BLOOD COUNT 12.6 10^3/uL (4.0-10.0)
[2024-04-07 09:28] LABS: ALBUMIN 3.8 G/DL (3.2-5.2); ALKALINE PHOSPHATASE 91 U/L (46-116); ALT/SGPT 18 U/L (7.0-40); AST/SGOT 16 U/L (<34); BILIRUBIN,TOTAL 0.6 MG/DL (0.3-1.2); BLOOD UREA NITROGEN 23 MG/DL (9-23); CALCIUM LEVEL 9.8 MG/DL (8.3-10.6); CARBON DIOXIDE LEVEL 22 MMOL/L (20-31); CHLORIDE LEVEL 104 MMOL/L (98-107); GLOMERULAR FILTRATION RATE > 60.0 (>45); GLUCOSE, FASTING 127 MG/DL (74-106); POTASSIUM SERUM 4.3 MMOL/L (3.5-5.1); SODIUM LEVEL 137 MMOL/L (136-145); TOTAL PROTEIN 6.8 G/DL (5.7-8.2)
[2024-04-07 12:04] VITALS: BP 160/89; TEMP 98.8; O2SAT 98
[2024-04-07] MEDS ORDERED: hydrALAZINE 20MG/ML 1ML VIAL IV PRN (12:30)
[2024-04-07] MEDS ORDERED: HOME MED LIST COMPLETE! XX SCH (14:35)
[2024-04-07 16:09] VITALS: BP 158/74; TEMP 98.2; O2SAT 98
[2024-04-07] MEDS: busPIRone 10 MG TAB PO SCH (16:50)
[2024-04-07 19:41] VITALS: BP 161/77; TEMP 98.7; O2SAT 98
[2024-04-07] MEDS: RIVAROXABAN 20MG TAB (XARELTO) PO SCH (21:07)
[2024-04-07] MEDS: oxyBUTYnin *DITROPAN XL* 5 MG TABCR PO SCH (21:08)
[2024-04-07] MEDS: tiZANidine 4 MG TAB PO SCH (21:16)
[2024-04-07 23:41] VITALS: BP 106/59; TEMP 98.6; O2SAT 97
[2024-04-08 04:05] VITALS: BP 158/77; TEMP 98.1; O2SAT 98
[2024-04-08] MEDS: LEVOTHYROXINE 25MCG TABLET (0.025MG) PO SCH (05:40)
[2024-04-08 05:43] LABS: BASO % 0.5 % (0.0-1.0); HEMATOCRIT 36.3 % (36.0-47.0); HEMOGLOBIN 12.3 g/dl (12.0-15.5); LYMPH # 2.2 10^3/uL (1.5-5.0); LYMPH % 33.7 % (24.0-44.0); MEAN CORPUSCULAR HEMOGLOBIN 29.3 pg (27.0-33.0); MEAN CORPUSCULAR HGB CONC 33.9 g/dl (32.0-36.5); MEAN CORPUSCULAR VOLUME 86.4 fl (80.0-96.0); MONO # 0.5 10^3/uL (0.0-0.8); MONO % 8.1 % (2.0-8.0); NEUTROPHILS # 3.8 10^3/uL (1.5-8.5); NEUTROPHILS % 57.4 % (36.0-66.0); PLATELET COUNT, AUTOMATED 217 10^3/uL (150-450); WHITE BLOOD COUNT 6.6 10^3/uL (4.0-10.0)
[2024-04-08 06:18] LABS: CALCIUM LEVEL 9.2 MG/DL (8.3-10.6); GLOMERULAR FILTRATION RATE 59.8 (>45); MAGNESIUM LEVEL 1.9 MG/DL (1.8-2.4); POTASSIUM SERUM 4.1 MMOL/L (3.5-5.1)
[2024-04-08 07:52] VITALS: BP 140/65; TEMP 98.3; O2SAT 93
[2024-04-08] MEDS: SERTRALINE HCL 25 MG TABLET PO SCH (08:56)
[2024-04-08 11:36] VITALS: BP 134/65; TEMP 99; O2SAT 96
[2024-04-08] MEDS: ACETAMINOPHEN TAB 650MG DOSE (2X325MG) PO ONE (11:58)
[2024-04-08 16:00] VITALS: BP 169/77; TEMP 98.5; O2SAT 95
[2024-04-09] VITALS (7 sets, daily range): BP systolic 122–196; BP diastolic 63–108; TEMP 97.8–98.4; O2SAT 97–100
[2024-04-09 05:41] LABS: BASO % 0.5 % (0.0-1.0); HEMATOCRIT 36.3 % (36.0-47.0); HEMOGLOBIN 12.1 g/dl (12.0-15.5); MEAN CORPUSCULAR HEMOGLOBIN 28.7 pg (27.0-33.0); MEAN CORPUSCULAR HGB CONC 33.3 g/dl (32.0-36.5); MONO # 0.5 10^3/uL (0.0-0.8); MONO % 7.7 % (2.0-8.0); NEUTROPHILS # 3.9 10^3/uL (1.5-8.5); NEUTROPHILS % 60.5 % (36.0-66.0); PLATELET COUNT, AUTOMATED 222 10^3/uL (150-450); RED BLOOD COUNT 4.22 10^6/uL (4.00-5.40); WHITE BLOOD COUNT 6.4 10^3/uL (4.0-10.0)
[2024-04-09 06:13] LABS: CALCIUM LEVEL 9.2 MG/DL (8.3-10.6); CREATININE FOR GFR 1.05 MG/DL (0.55-1.30); GLOMERULAR FILTRATION RATE 56.5 (>45); MAGNESIUM LEVEL 1.8 MG/DL (1.8-2.4); POTASSIUM SERUM 4.1 MMOL/L (3.5-5.1)
[2024-04-09] MEDS: amLODIPine 5 MG TAB PO SCH (12:10)
[2024-04-09] MEDS: amLODIPine 5 MG TAB PO ONE (21:00)
[2024-04-10 04:57] VITALS: BP 135/63; TEMP 97.9; O2SAT 98
[2024-04-10 07:17] LABS: BASO # 0.1 10^3/uL (0.0-0.2); BASO % 0.8 % (0.0-1.0); HEMATOCRIT 37.8 % (36.0-47.0); HEMOGLOBIN 12.9 g/dl (12.0-15.5); LYMPH # 1.6 10^3/uL (1.5-5.0); MEAN CORPUSCULAR HEMOGLOBIN 29.1 pg (27.0-33.0); MEAN CORPUSCULAR HGB CONC 34.1 g/dl (32.0-36.5); MEAN CORPUSCULAR VOLUME 85.1 fl (80.0-96.0); MONO # 0.5 10^3/uL (0.0-0.8); MONO % 7.3 % (2.0-8.0); NEUTROPHILS # 4.4 10^3/uL (1.5-8.5); NEUTROPHILS % 66.6 % (36.0-66.0); PLATELET COUNT, AUTOMATED 239 10^3/uL (150-450); RED BLOOD COUNT 4.44 10^6/uL (4.00-5.40); WHITE BLOOD COUNT 6.6 10^3/uL (4.0-10.0)
[2024-04-10 07:42] LABS: BLOOD UREA NITROGEN 15 MG/DL (9-23); CALCIUM LEVEL 9.6 MG/DL (8.3-10.6); CARBON DIOXIDE LEVEL 27 MMOL/L (20-31); CHLORIDE LEVEL 104 MMOL/L (98-107); CREATININE FOR GFR 0.96 MG/DL (0.55-1.30); GLOMERULAR FILTRATION RATE > 60.0 (>45); GLUCOSE, FASTING 104 MG/DL (74-106); MAGNESIUM LEVEL 1.7 MG/DL (1.8-2.4); SODIUM LEVEL 136 MMOL/L (136-145)
[2024-04-10] MEDS: MAGNESIUM OXIDE 400MG TAB (MAG-OX) PO ONE (08:59)
[2024-04-10 09:00] VITALS: BP 135/63
[2024-04-10 13:43] VITALS: BP 170/80; TEMP 98.8; O2SAT 97
[2024-04-10] MEDS ORDERED: AMLO1TAB25 PO (14:32)
[2024-04-10] MEDS ORDERED: MAGN400T2 PO (14:32)
[2024-04-10] MEDS ORDERED: LISI20TA33 PO (14:32)
[2024-04-10] MEDS ORDERED: SERT25TA21 PO (14:32)
[2024-04-10 14:36] VITALS: BP 153/84
[2024-04-10] MEDS: TUBERCULIN PPD 5 UNITS/0.1 ML ID ONE (15:29)
[2024-04-10] MEDS ORDERED: MAALOX 30 ML SUSP *UDC PO PRN (15:55)
[2024-04-10] MEDS ORDERED: MOM 30ML SUSPENSION UDC PO PRN (15:55)
[2024-04-10] MEDS ORDERED: IBUPROFEN 400MG TAB PO PRN (15:55)
[2024-04-10] MEDS ORDERED: traZODone 50 MG TAB PO PRN (15:55)
[2024-04-10] MEDS ORDERED: diphenhydrAMINE 25MG CAP PO PRN (15:55)
[2024-04-10] MEDS ORDERED: ACETAMINOPHEN TAB 650MG DOSE (2X325MG) PO PRN (15:55)
[2024-04-10] MEDS ORDERED: busPIRone 10 MG TAB PO SCH (16:00)
[2024-04-10] MEDS ORDERED: RIVAROXABAN 20MG TAB (XARELTO) PO SCH (21:00)
[2024-04-10] MEDS ORDERED: tiZANidine 4 MG TAB PO SCH (21:00)
[2024-04-10] MEDS ORDERED: oxyBUTYnin 5 MG TAB PO SCH (21:00)
[2024-04-10] MEDS ORDERED: MAGNESIUM OXIDE 400MG TAB (MAG-OX) PO SCH ×2 (21:00)
[2024-04-11] MEDS ORDERED: LEVOTHYROXINE 25MCG TABLET (0.025MG) PO SCH (06:00)
[2024-04-11] MEDS ORDERED: SERTRALINE HCL 25 MG TABLET PO SCH (09:00)
[2024-04-12] MEDS ORDERED: PPD DOCUMENTATION ENTRY MISC XX ONE (16:00)
== END 2024-04-10 16:20 | disposition other institution (70) ==
LOC: INTOOBSV 07:52 → M PCU 07:52 → M MS5PR 04-09 17:21
PROVIDERS: ADMIT Internal Medicine Nephrology; ATTEND Internal Medicine
DX: F25.9 Schizoaffective disorder, unspecified (principal); R45.851 Suicidal ideations; Z91.148 Patient's other noncompliance with medication regimen for other reason; R56.9 Unspecified convulsions; Z88.2 Allergy status to sulfonamides; Z88.0 Allergy status to penicillin; Z88.8 Allergy status to other drugs, medicaments and biological substances; Z79.899 Other long term (current) drug therapy; E78.5 Hyperlipidemia, unspecified; G25.81 Restless legs syndrome; E03.9 Hypothyroidism, unspecified; G89.29 Other chronic pain; Z86.718 Personal history of other venous thrombosis and embolism; M54.59 Other low back pain; I10 Essential (primary) hypertension

== ENCOUNTER 2024-04-10 16:23 | Inpatient (IN) | payer OTHER, MEDICAID ==
[~2024-04-10] VITALS: Ht 165.1 cm; Wt 86.4 kg
[~2024-04-10 16:23] MED LIST changes: +LISI20TA33 PO; +MAGN400T2 PO; +SERT25TA21 PO
[2024-04-10] MEDS ORDERED: MAALOX 30 ML SUSP *UDC PO PRN (17:25)
[2024-04-10] MEDS ORDERED: MOM 30ML SUSPENSION UDC PO PRN (17:25)
[2024-04-10 18:39] VITALS: BP 153/84; TEMP 98.8; O2SAT 97
[2024-04-10] MEDS: tiZANidine 4 MG TAB PO SCH (21:21)
[2024-04-10] MEDS: RIVAROXABAN 20MG TAB (XARELTO) PO SCH (21:21)
[2024-04-10] MEDS: oxyBUTYnin 5 MG TAB PO SCH (21:21)
[2024-04-10] MEDS: MAGNESIUM OXIDE 400MG TAB (MAG-OX) PO SCH (21:21)
[2024-04-10] MEDS: busPIRone 10 MG TAB PO SCH (21:21)
[2024-04-11] MEDS: LEVOTHYROXINE 25MCG TABLET (0.025MG) PO SCH (05:50)
[2024-04-11 06:42] VITALS: BP_SYST 142; BP_SYST 170; BP_DIAS 90; TEMP 98.4; O2SAT 99
[2024-04-11] MEDS: SERTRALINE HCL 25 MG TABLET PO SCH (09:42)
[2024-04-11] MEDS: ACETAMINOPHEN TAB 650MG DOSE (2X325MG) PO PRN (14:48)
[2024-04-11] MEDS: diphenhydrAMINE 25MG CAP PO PRN (15:50)
[2024-04-11 18:00] VITALS: BP 160/68; TEMP 98.2; O2SAT 97
[2024-04-11] MEDS: **hydrALAZINE HCL** 25 MG TAB PO PRN (18:27)
[2024-04-11] MEDS: traZODone 50 MG TAB PO PRN (20:47)
[2024-04-12 06:33] VITALS: BP 114/65; TEMP 98.2; O2SAT 18
[2024-04-12 10:41] VITALS: BP 134/70; TEMP 98.2; O2SAT 18
[2024-04-12 18:00] VITALS: BP 131/83; TEMP 97.8; O2SAT 93
[2024-04-12] MEDS: traZODone 100 MG TAB PO PRN (20:43)
[2024-04-13 06:04] VITALS: BP 128/78; TEMP 99; O2SAT 98
[2024-04-13] MEDS: SERTRALINE HCL 50 MG TAB PO SCH (09:12)
[2024-04-13 18:51] VITALS: BP 117/67; TEMP 97.9
[2024-04-14 06:13] VITALS: BP 131/60; TEMP 99.1; O2SAT 100
[2024-04-14 10:01] VITALS: BP 116/61
[2024-04-14] MEDS: HALOPERIDOL DECANOATE 100 MG/ML 1ML VIAL IM ONE (14:29)
[2024-04-14 16:38] VITALS: BP 130/61; TEMP 97.6; O2SAT 98
[2024-04-15 06:47] VITALS: BP 111/53; TEMP 97.8; O2SAT 98
[2024-04-15 18:23] VITALS: BP 136/67; TEMP 97.5
[2024-04-16 06:00] VITALS: BP 116/60; TEMP 97.3; O2SAT 97
[2024-04-17 07:01] VITALS: BP 139/73; TEMP 97.5; O2SAT 100
[2024-04-17 15:38] VITALS: BP 123/66; TEMP 97.8; O2SAT 99
[2024-04-18] MEDS: IBUPROFEN 400MG TAB PO PRN (02:35)
[2024-04-18 06:37] VITALS: BP 133/73; TEMP 98.5; O2SAT 99
[2024-04-18 16:30] VITALS: BP 142/71; TEMP 98.6; O2SAT 100
[2024-04-19 06:24] VITALS: BP 101/55; TEMP 98.6; O2SAT 98
[2024-04-19 16:32] VITALS: BP 129/58; TEMP 98.5; O2SAT 99
[2024-04-20 06:50] VITALS: BP 152/90; TEMP 97.5; O2SAT 99
[2024-04-20 08:35] VITALS: BP 146/80
[2024-04-20 18:07] VITALS: BP 138/62; TEMP 98.8
[2024-04-20] MEDS: traZODone 50 MG TAB PO PRN (21:11)
[2024-04-21 06:21] VITALS: BP 108/60; TEMP 98.5; O2SAT 99
[2024-04-21 10:07] VITALS: BP 107/66
[2024-04-21] MEDS: SERTRALINE HCL 25 MG TABLET PO SCH (10:10)
[2024-04-21] MEDS: TUBERCULIN PPD 5 UNITS/0.1 ML ID ONE (10:19)
[2024-04-21] MEDS: HALOPERIDOL DECANOATE 100 MG/ML 1ML VIAL IM ONE (16:48)
[2024-04-21 18:13] VITALS: BP 158/80; TEMP 98.1
[2024-04-22 06:00] VITALS: BP 120/69; TEMP 99; O2SAT 99
[2024-04-22 17:49] VITALS: BP 127/58; TEMP 98
[2024-04-23 04:31] LABS: BASO % 0.6 % (0.0-1.0); HEMATOCRIT 36.9 % (36.0-47.0); HEMOGLOBIN 12.3 g/dl (12.0-15.5); LYMPH # 1.8 10^3/uL (1.5-5.0); LYMPH % 33.3 % (24.0-44.0); MEAN CORPUSCULAR HEMOGLOBIN 29.4 pg (27.0-33.0); MEAN CORPUSCULAR HGB CONC 33.3 g/dl (32.0-36.5); MEAN CORPUSCULAR VOLUME 88.1 fl (80.0-96.0); MONO # 0.4 10^3/uL (0.0-0.8); NEUTROPHILS # 3.1 10^3/uL (1.5-8.5); NEUTROPHILS % 57.9 % (36.0-66.0); PLATELET COUNT, AUTOMATED 217 10^3/uL (150-450); RED BLOOD COUNT 4.19 10^6/uL (4.00-5.40); WHITE BLOOD COUNT 5.4 10^3/uL (4.0-10.0)
[2024-04-23 04:43] LABS: INR 1.62; PARTIAL THROMBOPLASTIN TIME 40.3 SECONDS (24.8-34.2); PROTHROMBIN TIME 18.7 SECONDS (12.5-14.5)
[2024-04-23 04:57] LABS: ALBUMIN 3.3 G/DL (3.2-5.2); ALKALINE PHOSPHATASE 75 U/L (46-116); ALT/SGPT 12 U/L (7.0-40); AST/SGOT < 8 U/L (<34); BILIRUBIN,TOTAL 0.4 MG/DL (0.3-1.2); BLOOD UREA NITROGEN 23 MG/DL (9-23); CALCIUM LEVEL 9.3 MG/DL (8.3-10.6); CARBON DIOXIDE LEVEL 29 MMOL/L (20-31); CHLORIDE LEVEL 105 MMOL/L (98-107); CREATININE FOR GFR 0.99 MG/DL (0.55-1.30); GLOMERULAR FILTRATION RATE > 60.0 (>45); GLUCOSE, FASTING 94 MG/DL (74-106); MAGNESIUM LEVEL 1.8 MG/DL (1.8-2.4); POTASSIUM SERUM 4.6 MMOL/L (3.5-5.1); SODIUM LEVEL 136 MMOL/L (136-145); TOTAL PROTEIN 4.2 G/DL (5.7-8.2)
[2024-04-23 06:22] VITALS: BP 112/56; TEMP 99.1; O2SAT 99
[2024-04-23] MEDS: PPD DOCUMENTATION ENTRY MISC XX SCH (16:04)
[2024-04-24 06:35] VITALS: BP 140/60; TEMP 98.2
[2024-04-24 16:03] VITALS: BP 136/72; TEMP 98.3; O2SAT 97
[2024-04-25 06:14] VITALS: BP 126/62; TEMP 98.9; O2SAT 99
[2024-04-25 16:16] VITALS: BP 125/73; TEMP 97.9; O2SAT 100
[2024-04-26 06:09] VITALS: BP 130/70; TEMP 98
[2024-04-26 15:11] VITALS: BP 138/62; TEMP 98.7; O2SAT 99
[2024-04-26] MEDS: QUEtiapine FUMARATE 50MG TAB PO SCH (21:56)
[2024-04-27 06:18] VITALS: BP 127/56; TEMP 99.1; O2SAT 97
[2024-04-27 09:18] VITALS: BP 152/56
[2024-04-27 09:19] VITALS: BP 152/72
[2024-04-27] MEDS ORDERED: BUSP10TA PO (09:28)
[2024-04-27] MEDS ORDERED: QUET50TA4 PO ×2 (09:28→23:39)
[2024-04-27] MEDS ORDERED: HALO10TA20 PO (09:28)
[2024-04-27] MEDS ORDERED: LISI20TA33 PO ×2 (09:28→23:39)
[2024-04-27] MEDS ORDERED: AMLO1TAB25 PO (09:28)
[2024-04-27] MEDS ORDERED: SERT25TA21 PO ×2 (09:28→23:39)
[2024-04-27] MEDS ORDERED: SYNT25TA PO (09:28)
[2024-04-27] MEDS ORDERED: XARE20TA PO (09:28)
[2024-04-27] MEDS ORDERED: TRAZ1TAB14 PO ×2 (09:28→23:39)
[2024-04-27] MEDS ORDERED: OXYB-54 PO (23:39)
== END 2024-04-27 12:30 | disposition home or self-care (01) | DRG 885 ==
LOC: M PSY 16:23
PROVIDERS: ADMIT Student in an Organized Health Care Education/Training Program; ATTEND Student in an Organized Health Care Education/Training Program
DX: F25.1 Schizoaffective disorder, depressive type (principal); R45.851 Suicidal ideations; Z91.119 Patient's noncompliance with dietary regimen due to unspecified reason; Z88.0 Allergy status to penicillin; Z88.2 Allergy status to sulfonamides; Z88.8 Allergy status to other drugs, medicaments and biological substances; Z79.899 Other long term (current) drug therapy; I10 Essential (primary) hypertension; E03.9 Hypothyroidism, unspecified; M54.59 Other low back pain; R32 Unspecified urinary incontinence

== ENCOUNTER 2024-04-27 20:30 | Inpatient (IN) | payer OTHER, MEDICAID ==
[~2024-04-27] VITALS: Ht 165.1 cm; Wt 88.0 kg
[~2024-04-27 20:30] MED LIST changes: +QUET50TA4 PO; +TRAZ1TAB14 PO
[2024-04-27 21:59] LABS: HEMATOCRIT 35.6 % (36.0-47.0); MEAN CORPUSCULAR HEMOGLOBIN 29.5 pg (27.0-33.0); MEAN CORPUSCULAR HGB CONC 33.7 g/dl (32.0-36.5); MEAN CORPUSCULAR VOLUME 87.5 fl (80.0-96.0); PLATELET COUNT, AUTOMATED 220 10^3/uL (150-450); RED BLOOD COUNT 4.07 10^6/uL (4.00-5.40); WHITE BLOOD COUNT 8.3 10^3/uL (4.0-10.0)
[2024-04-27 22:25] LABS: AMPHETAMINES LEVEL URINE NEGATIVE (NEGATIVE); BARBITURATES URINE NEGATIVE (NEGATIVE); BENZODIAZEPINES URINE NEGATIVE (NEGATIVE); CANNABINOIDS URINE NEGATIVE (NEGATIVE); COCAINE METABOLITE URINE NEGATIVE (NEGATIVE); METHADONE URINE NEGATIVE (NEGATIVE); OPIATES URINE NEGATIVE (NEGATIVE); PHENCYCLIDINE URINE NEGATIVE (NEGATIVE)
[2024-04-27 22:26] LABS: ETHYL ALCOHOL (ETHANOL) < 0.003 % (0.000-0.010)
[2024-04-27 22:28] LABS: ALBUMIN 3.5 G/DL (3.2-5.2); ALKALINE PHOSPHATASE 81 U/L (46-116); ALT/SGPT 13 U/L (7.0-40); AST/SGOT 10 U/L (<34); BILIRUBIN,DIRECT 0.1 MG/DL (<0.4); BILIRUBIN,TOTAL 0.4 MG/DL (0.3-1.2); BLOOD UREA NITROGEN 34 MG/DL (9-23); CALCIUM LEVEL 9.3 MG/DL (8.3-10.6); CARBON DIOXIDE LEVEL 25 MMOL/L (20-31); CHLORIDE LEVEL 104 MMOL/L (98-107); CREATININE FOR GFR 1.08 MG/DL (0.55-1.30); GLOMERULAR FILTRATION RATE 54.7 (>45); GLUCOSE, FASTING 85 MG/DL (74-106); POTASSIUM SERUM 4.3 MMOL/L (3.5-5.1); SALICYLATE LEVEL < 3.0 MG/DL (<30); SODIUM LEVEL 136 MMOL/L (136-145); TOTAL PROTEIN 6.2 G/DL (5.7-8.2)
[2024-04-27 22:29] LABS: THYROID STIMULATING HORMONE 1.298 uIU/ML (0.55-4.78)
[2024-04-27] MEDS ORDERED: SERT25TA21 PO (23:39)
[2024-04-27] MEDS ORDERED: QUET50TA4 PO (23:39)
[2024-04-27] MEDS ORDERED: OXYB-54 PO (23:39)
[2024-04-27] MEDS ORDERED: TRAZ1TAB14 PO (23:39)
[2024-04-27] MEDS ORDERED: LISI20TA33 PO (23:39)
[2024-04-27] MEDS ORDERED: HOME MED LIST COMPLETE! XX SCH (23:40)
[2024-04-28] MEDS: RIVAROXABAN 20MG TAB (XARELTO) PO ONE (00:29)
[2024-04-28] MEDS: traZODone 50 MG TAB PO ONE (00:30)
[2024-04-28] MEDS: QUEtiapine FUMARATE 50MG TAB PO ONE (00:30)
[2024-04-28] MEDS: LEVOTHYROXINE 25MCG TABLET (0.025MG) PO SCH (06:00)
[2024-04-28] MEDS: tiZANidine 4 MG TAB PO SCH (08:39)
[2024-04-28] MEDS: busPIRone 10 MG TAB PO SCH (08:39)
[2024-04-28] MEDS: SERTRALINE HCL 25 MG TABLET PO SCH (08:39)
[2024-04-28] MEDS: MAGNESIUM OXIDE 400MG TAB (MAG-OX) PO SCH (08:40)
[2024-04-28] MEDS: RIVAROXABAN 20MG TAB (XARELTO) PO SCH (20:00)
[2024-04-28] MEDS: QUEtiapine FUMARATE 50MG TAB PO SCH (20:59)
[2024-04-28] MEDS ORDERED: RIVAROXABAN 20MG TAB (XARELTO) PO SCH (21:00)
[2024-04-28] MEDS: traZODone 50 MG TAB PO SCH (21:00)
[2024-04-29] MEDS: ACETAMINOPHEN TAB 650MG DOSE (2X325MG) PO ONE (14:51)
[2024-04-30] MEDS: ISOSORBIDE DIN. (ISORDIL) 20 MG TAB PO SCH (09:00)
[2024-04-30] MEDS: ACETAMINOPHEN TAB 650MG DOSE (2X325MG) PO PRN (10:15)
[2024-04-30 20:05] VITALS: BP 144/83; TEMP 97.7; O2SAT 100
[2024-05-01] MEDS ORDERED: UNRESOLVED CLARIFICATION ENTRY XX SCH (00:01)
[2024-05-01 03:44] VITALS: BP 124/51; TEMP 97.7; O2SAT 97
[2024-05-01] MEDS: ISOSORBIDE DIN. (ISORDIL) 20 MG TAB PO SCH (08:00)
[2024-05-01] MEDS: LEVOTHYROXINE 25MCG TABLET (0.025MG) PO SCH (11:27)
[2024-05-01] MEDS: GABAPENTIN 100 MG CAP PO ONE (11:27)
[2024-05-01 12:00] VITALS: BP 120/65; TEMP 97.7; O2SAT 98
[2024-05-01] MEDS: RIVAROXABAN 20MG TAB (XARELTO) PO SCH (17:05)
[2024-05-01] MEDS: busPIRone 10 MG TAB PO SCH (17:05)
[2024-05-01 20:00] VITALS: BP 163/76; TEMP 97.9; O2SAT 96
[2024-05-01] MEDS: traZODone 50 MG TAB PO SCH (21:00)
[2024-05-01] MEDS: tiZANidine 4 MG TAB PO SCH (21:00)
[2024-05-01] MEDS: QUEtiapine FUMARATE 50MG TAB PO SCH (21:00)
[2024-05-01] MEDS: MAGNESIUM OXIDE 400MG TAB (MAG-OX) PO SCH (21:00)
[2024-05-01] MEDS: GABAPENTIN 100 MG CAP PO SCH (21:26)
[2024-05-02 04:00] VITALS: BP 162/89; TEMP 97.2; O2SAT 100
[2024-05-02] MEDS: SERTRALINE HCL 25 MG TABLET PO SCH (08:58)
[2024-05-02] MEDS: ISOSORBIDE DIN. (ISORDIL) 20 MG TAB PO SCH (12:00)
[2024-05-02 12:07] VITALS: BP 116/66; TEMP 97.7; O2SAT 97
[2024-05-02 19:48] VITALS: BP 111/65; TEMP 97.9; O2SAT 97
[2024-05-03 04:09] VITALS: BP 105/53; TEMP 97.5; O2SAT 97
[2024-05-03 12:38] VITALS: BP 118/74; TEMP 96.8; O2SAT 98
[2024-05-03] MEDS ORDERED: ISOS20TA4 PO (15:55)
[2024-05-03 20:12] VITALS: BP 153/72; TEMP 97.7; O2SAT 97
[2024-05-04] VITALS (8 sets, daily range): BP systolic 111–140; BP diastolic 50–79; TEMP 97.7; O2SAT 96–97
[2024-05-05 04:00] VITALS: BP 126/64; TEMP 97.5; O2SAT 99
[2024-05-05 06:13] VITALS: BP 137/81
[2024-05-05 12:00] VITALS: BP 132/81; TEMP 97.7; O2SAT 98
== END 2024-05-05 13:30 | DRG 884 ==
LOC: M ED 20:30 → M ED INP 04-30 15:47 → M MS5PR 04-30 20:05
PROVIDERS: ADMIT General Practice; ATTEND General Practice
DX: R41.89 Other symptoms and signs involving cognitive functions and awareness (principal); I67.82 Cerebral ischemia; R45.851 Suicidal ideations; I10 Essential (primary) hypertension; F25.1 Schizoaffective disorder, depressive type; E03.9 Hypothyroidism, unspecified; F31.9 Bipolar disorder, unspecified; G62.9 Polyneuropathy, unspecified; F41.9 Anxiety disorder, unspecified; Z86.718 Personal history of other venous thrombosis and embolism; E66.9 Obesity, unspecified; R56.9 Unspecified convulsions; Z79.01 Long term (current) use of anticoagulants; M54.50 Low back pain, unspecified; Z75.1 Person awaiting admission to adequate facility elsewhere; Z88.0 Allergy status to penicillin; Z88.8 Allergy status to other drugs, medicaments and biological substances; Z79.899 Other long term (current) drug therapy

== ENCOUNTER 2024-05-05 08:24 | Inpatient (IN) | payer OTHER, MEDICAID ==
[~2024-05-05 08:24] MED LIST changes: +ISOS20TA4 PO
[2024-05-05] MEDS: FOLIC ACID 1MG TAB PO SCH (09:00)
[2024-05-05] MEDS: NICOTINE 21MG/24HR 1 EA TRANSDERMAL TD SCH (09:00)
[2024-05-05] MEDS: THIAMINE 100 MG TAB PO SCH (09:00)
[2024-05-05] MEDS: MULTIVITAMINS/MINERALS THERAP 1 TAB PO SCH (09:00)
[2024-05-05] MEDS ORDERED: MOM 30ML SUSPENSION UDC PO PRN (12:45)
[2024-05-05] MEDS ORDERED: diphenhydrAMINE 25MG CAP PO PRN (12:45)
[2024-05-05] MEDS ORDERED: LORazepam 2 MG TAB PO PRN (12:45)
[2024-05-05] MEDS ORDERED: MAALOX 30 ML SUSP *UDC PO PRN (12:45)
[2024-05-05 14:20] VITALS: BP 138/78; TEMP 97.4; O2SAT 98
[2024-05-05] MEDS: busPIRone 10 MG TAB PO SCH (16:56)
[2024-05-05] MEDS: RIVAROXABAN 20MG TAB (XARELTO) PO SCH (17:03)
[2024-05-05] MEDS: tiZANidine 4 MG TAB PO SCH (20:17)
[2024-05-05] MEDS: MAGNESIUM OXIDE 400MG TAB (MAG-OX) PO SCH (20:17)
[2024-05-05] MEDS: oxyBUTYnin *DITROPAN XL* 5 MG TABCR PO SCH (20:17)
[2024-05-05] MEDS: QUEtiapine FUMARATE 50MG TAB PO SCH (20:17)
[2024-05-05] MEDS: traZODone 50 MG TAB PO SCH (20:18)
[2024-05-05] MEDS: ACETAMINOPHEN TAB 650MG DOSE (2X325MG) PO PRN (20:19)
[2024-05-05] MEDS: ISOSORBIDE DIN. (ISORDIL) 20 MG TAB PO SCH (20:19)
[2024-05-06] MEDS: IBUPROFEN 400MG TAB PO PRN (04:25)
[2024-05-06] MEDS: LEVOTHYROXINE 25MCG TABLET (0.025MG) PO SCH (05:41)
[2024-05-06 06:19] VITALS: BP 146/73; TEMP 98.4; O2SAT 98
[2024-05-06] MEDS: SERTRALINE HCL 25 MG TABLET PO SCH (08:48)
[2024-05-06] MEDS: TUBERCULIN PPD 5 UNITS/0.1 ML ID ONE (08:50)
[2024-05-06] MEDS: LOPERAMIDE 2 MG CAPLET PO ONE (08:53)
[2024-05-06 12:18] VITALS: BP 121/69
[2024-05-06 17:36] VITALS: BP 151/67; TEMP 98.2
[2024-05-07 06:21] VITALS: BP 115/62; TEMP 98.8; O2SAT 100
[2024-05-07] MEDS: LOPERAMIDE 2 MG CAPLET PO PRN (06:21)
[2024-05-07] MEDS: SERTRALINE 100 MG TAB PO SCH (08:34)
[2024-05-07] MEDS: GABAPENTIN 100 MG CAP PO SCH (11:09)
[2024-05-07 15:38] VITALS: BP 109/65; TEMP 98.3; O2SAT 94
[2024-05-08 06:13] VITALS: BP 127/69; TEMP 98; O2SAT 99
[2024-05-08] MEDS ORDERED: PPD DOCUMENTATION ENTRY MISC XX ONE (10:00)
[2024-05-08 15:42] VITALS: BP 117/58; TEMP 98; O2SAT 98
[2024-05-09 06:16] VITALS: BP 117/59; TEMP 98.2; O2SAT 96
[2024-05-09 16:20] VITALS: BP 114/75; TEMP 98.7; O2SAT 99
[2024-05-10 05:50] VITALS: BP 126/60; TEMP 97.6; O2SAT 96
[2024-05-10 15:38] VITALS: BP 112/64; TEMP 98.9; O2SAT 100
[2024-05-11 06:53] VITALS: BP 131/60; TEMP 98.3; O2SAT 97
[2024-05-11 08:27] VITALS: BP 113/53
[2024-05-11 18:45] VITALS: BP 132/59; TEMP 97.8
[2024-05-12 06:29] VITALS: BP 143/68; TEMP 98.3; O2SAT 96
[2024-05-12 08:29] VITALS: BP 113/60
[2024-05-12] MEDS: SERTRALINE 100 MG TAB PO SCH (08:40)
[2024-05-12] MEDS: SERTRALINE HCL 25 MG TABLET PO SCH (08:40)
[2024-05-12] MEDS ORDERED: SERTRALINE 100 MG TAB PO SCH (09:00)
[2024-05-12 12:18] VITALS: BP 124/72
[2024-05-12 17:10] VITALS: BP 138/80; TEMP 98.3
[2024-05-13 06:15] VITALS: BP 110/60; TEMP 98.8; O2SAT 97
[2024-05-13 08:33] VITALS: BP 128/60
[2024-05-13 12:47] VITALS: BP 118/60
[2024-05-13 18:05] VITALS: BP 127/64; TEMP 99.3
[2024-05-14 16:17] VITALS: BP 168/77; TEMP 98; O2SAT 99
[2024-05-15] MEDS ORDERED: FOSFOMYCIN TROMETHAMINE 3 GM POWDER PACKET (MONUROL) PO ONE (16:00)
[2024-05-15 16:06] VITALS: BP 132/78; TEMP 98.9; O2SAT 95
[2024-05-15] MEDS ORDERED: CEFD300CAP PO (17:27)
[2024-05-15 17:39] LABS: Trichomonas vaginalis (AMP) NOT DETECTED (NEGATIVE)
[2024-05-15 18:03] LABS: GC DNA AMPLIFICATION NEGATIVE (NEGATIVE)
[2024-05-15] MEDS: CEFDINIR 300 MG CAP (OMNICEF) PO SCH (20:25)
[2024-05-15] MEDS: traZODone 50 MG TAB PO PRN (23:02)
[2024-05-16 06:18] VITALS: BP 134/72; TEMP 98.6; O2SAT 97
[2024-05-16 16:37] VITALS: BP 110/57; TEMP 97.6; O2SAT 99
[2024-05-17 06:23] VITALS: BP 154/82; TEMP 97.8; O2SAT 100
[2024-05-17 06:25] VITALS: BP 142/82
[2024-05-17] MEDS ORDERED: CEPHALEXIN 500 MG CAP PO SCH (09:00)
[2024-05-17] MEDS: HALOPERIDOL DECANOATE 100 MG/ML 1ML VIAL IM ONE (13:42)
[2024-05-17 15:58] VITALS: BP 128/60; TEMP 98.7; O2SAT 97
[2024-05-18 06:37] VITALS: BP 135/65; TEMP 98.2; O2SAT 98
[2024-05-18] MEDS: CEFDINIR 300 MG CAP (OMNICEF) PO SCH (09:00)
[2024-05-18] MEDS ORDERED: CEPHALEXIN 500 MG CAP PO SCH (09:35)
[2024-05-18 18:44] VITALS: BP 151/67; TEMP 97.5
[2024-05-19 08:22] VITALS: BP 154/56
[2024-05-19 09:42] VITALS: BP 122/80
[2024-05-19 18:37] VITALS: BP 172/90; TEMP 98; O2SAT 97
[2024-05-20 09:18] VITALS: BP 124/56
[2024-05-20 12:00] VITALS: BP 124/56
[2024-05-20] MEDS ORDERED: TRAZ1TAB14 PO (12:42)
[2024-05-20] MEDS ORDERED: LOPE2CA PO (12:42)
[2024-05-20] MEDS ORDERED: GABA-1171 PO (12:42)
[2024-05-20] MEDS ORDERED: ZOLO100T PO (12:42)
== END 2024-05-20 15:26 | disposition home or self-care (01) | DRG 885 ==
LOC: M PSY 13:30
PROVIDERS: ADMIT Student in an Organized Health Care Education/Training Program; ATTEND Student in an Organized Health Care Education/Training Program
DX: F25.1 Schizoaffective disorder, depressive type (principal); R45.851 Suicidal ideations; Z88.2 Allergy status to sulfonamides; Z88.0 Allergy status to penicillin; Z88.8 Allergy status to other drugs, medicaments and biological substances; Z79.899 Other long term (current) drug therapy; E03.9 Hypothyroidism, unspecified; I10 Essential (primary) hypertension; F41.9 Anxiety disorder, unspecified; Z86.718 Personal history of other venous thrombosis and embolism; Z87.891 Personal history of nicotine dependence; M54.59 Other low back pain; R56.9 Unspecified convulsions

== ENCOUNTER 2024-06-01 12:06 | Inpatient (IN) | payer OTHER, MEDICAID ==
[~2024-06-01] VITALS: Ht 165.1 cm; Wt 85.2 kg
[~2024-06-01 12:06] MED LIST changes: +CEFD300CAP PO; +LOPE2CA PO
[2024-06-01] MEDS: LIDOCAINE 2% 5ML JELLY UROJET TOP ONE ×2 (12:20→12:45)
[2024-06-01 12:36] LABS: ABG BASE EXCESS -9.6 (-2.0-2.0); ABG HCO3 16.1 MMOL/L (22.0-26.0); ABG O2 SATURATION 97.6 % (95.0-99.0); ABG PARTIAL PRESSURE CO2 34.5 mmHg (35.0-45.0); ABG PARTIAL PRESSURE O2 109.3 mmHg (75.0-100.0); ABG STANDARD HCO3 16.8 MMOL/L. (22.0-26.0); ABG TOTAL CO2 17.1 MMOL/L (23.0-31.0); ABG pH (ARTERIAL) 7.286 UNITS (7.350-7.450)
[2024-06-01] MEDS: NS 1,000 ML IV ONE ×4 (12:41→18:09)
[2024-06-01] MEDS: NOREPINEPHRINE 4MG IN D5 250ML 4 MG in IV 1 EA IV SCH (12:44)
[2024-06-01] MEDS ORDERED: NOREPINEPHRINE 4MG IN D5 250ML 4 MG in IV 1 EA IV SCH (12:45)
[2024-06-01 12:56] LABS: BASO % 0.3 % (0.0-1.0); HEMATOCRIT 37.4 % (36.0-47.0); HEMOGLOBIN 12.4 g/dl (12.0-15.5); LYMPH # 0.8 10^3/uL (1.5-5.0); LYMPH % 6.7 % (24.0-44.0); MEAN CORPUSCULAR HEMOGLOBIN 29.9 pg (27.0-33.0); MEAN CORPUSCULAR HGB CONC 33.2 g/dl (32.0-36.5); MEAN CORPUSCULAR VOLUME 90.1 fl (80.0-96.0); MONO # 0.5 10^3/uL (0.0-0.8); MONO % 4.8 % (2.0-8.0); NEUTROPHILS # 9.8 10^3/uL (1.5-8.5); NEUTROPHILS % 87.5 % (36.0-66.0); PLATELET COUNT, AUTOMATED 244 10^3/uL (150-450); RED BLOOD COUNT 4.15 10^6/uL (4.00-5.40); WHITE BLOOD COUNT 11.2 10^3/uL (4.0-10.0)
[2024-06-01] MEDS: CHARCOAL ACTIVATED LIQUID 25GM/120ML BTL PO ONE (13:10)
[2024-06-01 13:18] LABS: ETHYL ALCOHOL (ETHANOL) < 0.003 % (0.000-0.010)
[2024-06-01 13:20] LABS: ALBUMIN 3.3 G/DL (3.2-5.2); ALKALINE PHOSPHATASE 80 U/L (46-116); ALT/SGPT 21 U/L (7.0-40); AST/SGOT 18 U/L (<34); BILIRUBIN,DIRECT < 0.1 MG/DL (<0.4); BILIRUBIN,TOTAL 0.2 MG/DL (0.3-1.2); BLOOD UREA NITROGEN 21 MG/DL (9-23); CALCIUM LEVEL 8.9 MG/DL (8.3-10.6); CARBON DIOXIDE LEVEL 19 MMOL/L (20-31); CHLORIDE LEVEL 108 MMOL/L (98-107); CPK CREATINE PHOSPHOKINASE 114 U/L (34-145); CREATININE FOR GFR 1.65 MG/DL (0.55-1.30); GLOMERULAR FILTRATION RATE 33.4 (>45); GLUCOSE, FASTING 140 MG/DL (74-106); POTASSIUM SERUM 4.4 MMOL/L (3.5-5.1); SALICYLATE LEVEL < 3.0 MG/DL (<30); SODIUM LEVEL 139 MMOL/L (136-145); TOTAL PROTEIN 5.6 G/DL (5.7-8.2)
[2024-06-01 13:22] LABS: THYROID STIMULATING HORMONE 2.007 uIU/ML (0.55-4.78)
[2024-06-01 13:38] LABS: AMPHETAMINES LEVEL URINE NEGATIVE (NEGATIVE); BARBITURATES URINE NEGATIVE (NEGATIVE)
[2024-06-01 13:39] LABS: BENZODIAZEPINES URINE NEGATIVE (NEGATIVE); CANNABINOIDS URINE NEGATIVE (NEGATIVE); COCAINE METABOLITE URINE NEGATIVE (NEGATIVE); METHADONE URINE NEGATIVE (NEGATIVE); OPIATES URINE NEGATIVE (NEGATIVE); PHENCYCLIDINE URINE NEGATIVE (NEGATIVE)
[2024-06-01] MEDS ORDERED: CALCIUM GLUCONATE 1,000 MG in D5W MINI-BAG PLUS 100 ML IV ONE (13:45)
[2024-06-01] MEDS ORDERED: NS 1,000 ML IV ONE (13:55)
[2024-06-01] MEDS: CALCIUM GLUCONATE 1,000 MG in D5W MINI-BAG PLUS 100 ML IV ONE ×2 (14:00→15:47)
[2024-06-01] MEDS ORDERED: NS IV SCH (14:25)
[2024-06-01] MEDS ORDERED: INSULIN HUMAN REGULAR IV SCH (14:25)
[2024-06-01] MEDS: SODIUM BICARBONATE 100 MEQ in D5W 1,000 ML IV SCH (16:41)
[2024-06-01] MEDS ORDERED: ISOS20TA4 PO (17:01)
[2024-06-01] MEDS ORDERED: PREG100CA PO (17:01)
[2024-06-01] MEDS ORDERED: GABA-1171 PO (17:01)
[2024-06-01] MEDS ORDERED: CEFD1CAP9 PO (17:01)
[2024-06-01] MEDS ORDERED: ZOLO100T PO (17:01)
[2024-06-01] MEDS ORDERED: ZOLO25TA PO (17:01)
[2024-06-01] MEDS ORDERED: HOME MED LIST COMPLETE! XX SCH (17:05)
[2024-06-01 17:25] LABS: INR 1.13; PROTHROMBIN TIME 14.2 SECONDS (12.5-14.5)
[2024-06-01 17:27] VITALS: BP 131/64; TEMP 97.7; O2SAT 97
[2024-06-01] MEDS: PANTOPRAZOLE 40MG VIAL IV SCH (17:27)
[2024-06-01 17:31] LABS: ABG BASE EXCESS -8.9 (-2.0-2.0); ABG HCO3 16.3 MMOL/L (22.0-26.0); ABG O2 SATURATION 96.5 % (95.0-99.0); ABG PARTIAL PRESSURE CO2 33.1 mmHg (35.0-45.0); ABG PARTIAL PRESSURE O2 85.2 mmHg (75.0-100.0); ABG STANDARD HCO3 17.3 MMOL/L. (22.0-26.0); ABG TOTAL CO2 17.3 MMOL/L (23.0-31.0)
[2024-06-01 18:00] VITALS: BP 121/67; O2SAT 98
[2024-06-01] MEDS ORDERED: DOPamine HCL 400 MG in IV 1 EA IV SCH (18:00)
[2024-06-01] MEDS: NOREPINEPHRINE BITARTRATE 16 MG in D5W 484 ML IV SCH (18:08)
[2024-06-01] MEDS: ONDANSETRON 4MG 2ML VIAL IV ONE (18:08)
[2024-06-01 19:00] VITALS: BP 129/58; O2SAT 97
[2024-06-01 19:14] LABS: ALBUMIN 3.3 G/DL (3.2-5.2); BILIRUBIN,TOTAL 0.2 MG/DL (0.3-1.2); CALCIUM LEVEL 9.2 MG/DL (8.3-10.6); CREATININE FOR GFR 1.63 MG/DL (0.55-1.30); GLOMERULAR FILTRATION RATE 33.9 (>45); MAGNESIUM LEVEL 1.6 MG/DL (1.8-2.4); PHOSPHORUS LEVEL 4.2 MG/DL (2.4-5.1); TOTAL PROTEIN 5.9 G/DL (5.7-8.2)
[2024-06-01 20:00] VITALS: BP 129/59; TEMP 98.4; O2SAT 96
[2024-06-01 21:09] VITALS: BP 135/65; O2SAT 98
[2024-06-01 22:46] VITALS: BP 136/63; O2SAT 98
[2024-06-01] MEDS: HEPARIN SOD (PORCINE) 5000UNITS/ML 1ML VIAL/SYRINGE SC SCH (22:48)
[2024-06-02] VITALS (11 sets, daily range): BP systolic 121–169; BP diastolic 59–82; TEMP 97.4–98.5; O2SAT 97–99
[2024-06-02] MEDS ORDERED: UNRESOLVED CLARIFICATION ENTRY XX SCH (00:01)
[2024-06-02 05:16] LABS: BASO % 0.3 % (0.0-1.0); EOS % 0.1 % (0.0-3.0); HEMATOCRIT 35.7 % (36.0-47.0); LYMPH # 2.4 10^3/uL (1.5-5.0); LYMPH % 22.8 % (24.0-44.0); MEAN CORPUSCULAR HEMOGLOBIN 29.6 pg (27.0-33.0); MEAN CORPUSCULAR HGB CONC 33.6 g/dl (32.0-36.5); MEAN CORPUSCULAR VOLUME 87.9 fl (80.0-96.0); MONO # 0.9 10^3/uL (0.0-0.8); MONO % 8.2 % (2.0-8.0); NEUTROPHILS # 7.2 10^3/uL (1.5-8.5); NEUTROPHILS % 68.2 % (36.0-66.0); PLATELET COUNT, AUTOMATED 247 10^3/uL (150-450); RED BLOOD COUNT 4.06 10^6/uL (4.00-5.40); WHITE BLOOD COUNT 10.6 10^3/uL (4.0-10.0)
[2024-06-02 05:29] LABS: INR 1.09; PROTHROMBIN TIME 13.8 SECONDS (12.5-14.5)
[2024-06-02 05:48] LABS: ALBUMIN 3.3 G/DL (3.2-5.2); BILIRUBIN,TOTAL 0.2 MG/DL (0.3-1.2); CALCIUM LEVEL 8.5 MG/DL (8.3-10.6); CREATININE FOR GFR 1.8 MG/DL (0.55-1.30); GLOMERULAR FILTRATION RATE 30.3 (>45); POTASSIUM SERUM 3.2 MMOL/L (3.5-5.1); TOTAL PROTEIN 5.7 G/DL (5.7-8.2)
[2024-06-02 05:49] LABS: ABG BASE EXCESS -6.1 (-2.0-2.0); ABG O2 SATURATION 98.8 % (95.0-99.0); ABG PARTIAL PRESSURE CO2 31.5 mmHg (35.0-45.0); ABG PARTIAL PRESSURE O2 137.4 mmHg (75.0-100.0); ABG STANDARD HCO3 19.5 MMOL/L. (22.0-26.0); ABG pH (ARTERIAL) 7.376 UNITS (7.350-7.450)
[2024-06-02 06:28] LABS: MAGNESIUM LEVEL 1.6 MG/DL (1.8-2.4)
[2024-06-02] MEDS: MAG SULF 1GM/100ML (MAG RUN) 1 GM in IV 1 EA IV ONE (06:40)
[2024-06-02] MEDS ORDERED: KCL 10MEQ/100ML SWI (KRUN) 10 MEQ in IV 1 EA IV SCH (07:00)
[2024-06-02] MEDS: LR 1,000 ML IV ONE (08:35)
[2024-06-02] MEDS: POTASSIUM CHLORIDE 10MEQ SR TABLET PO ONE (08:35)
[2024-06-02] MEDS: LR 1,000 ML IV SCH (10:45)
[2024-06-02] MEDS: LOPERAMIDE 2 MG CAPLET PO ONE (10:46)
[2024-06-02] MEDS: MAG SULF 1GM/100ML (MAG RUN) 1 GM in IV 1 EA IV STA (12:00)
[2024-06-02] MEDS: ISOSORBIDE DIN. (ISORDIL) 20 MG TAB PO SCH (13:23)
[2024-06-02] MEDS: PREGABALIN 100 MG CAP (LYRICA) PO SCH (13:24)
[2024-06-02] MEDS: tiZANidine 4 MG TAB PO SCH (13:24)
[2024-06-02] MEDS: SERTRALINE 100 MG TAB PO SCH (13:24)
[2024-06-02] MEDS: GABAPENTIN 100 MG CAP PO SCH (13:24)
[2024-06-02] MEDS: amLODIPine 5 MG TAB PO SCH (13:25)
[2024-06-02] MEDS: LOPERAMIDE 2 MG CAPLET PO PRN (13:25)
[2024-06-02] MEDS: LEVOTHYROXINE 25MCG TABLET (0.025MG) PO SCH (13:26)
[2024-06-02] MEDS: SERTRALINE HCL 25 MG TABLET PO SCH (13:26)
[2024-06-02 14:08] LABS: ALBUMIN 3.3 G/DL (3.2-5.2); BILIRUBIN,TOTAL 0.3 MG/DL (0.3-1.2); CALCIUM LEVEL 8.6 MG/DL (8.3-10.6); CREATININE FOR GFR 1.69 MG/DL (0.55-1.30); GLOMERULAR FILTRATION RATE 32.5 (>45); POTASSIUM SERUM 3.4 MMOL/L (3.5-5.1); TOTAL PROTEIN 5.9 G/DL (5.7-8.2)
[2024-06-02 14:19] LABS: CREATININE,RANDOM URINE 46.6 MG/DL
[2024-06-02] MEDS: busPIRone 10 MG TAB PO SCH (16:22)
[2024-06-02] MEDS: RIVAROXABAN 15MG TAB (XARELTO) PO SCH (18:09)
[2024-06-02] MEDS: traZODone 50 MG TAB PO SCH (20:10)
[2024-06-03] VITALS (8 sets, daily range): BP systolic 96–171; BP diastolic 53–79; TEMP 97.6–98.6; O2SAT 96–99
[2024-06-03] MEDS: ACETAMINOPHEN TAB 650MG DOSE (2X325MG) PO PRN (00:47)
[2024-06-03 04:55] LABS: HEMATOCRIT 33.6 % (36.0-47.0); HEMOGLOBIN 11.3 g/dl (12.0-15.5); MEAN CORPUSCULAR HEMOGLOBIN 29.5 pg (27.0-33.0); MEAN CORPUSCULAR HGB CONC 33.6 g/dl (32.0-36.5); MEAN CORPUSCULAR VOLUME 87.7 fl (80.0-96.0); PLATELET COUNT, AUTOMATED 208 10^3/uL (150-450); RED BLOOD COUNT 3.83 10^6/uL (4.00-5.40); WHITE BLOOD COUNT 7.6 10^3/uL (4.0-10.0)
[2024-06-03 05:15] LABS: CREATININE FOR GFR 1.66 MG/DL (0.55-1.30); GLOMERULAR FILTRATION RATE 33.2 (>45); MAGNESIUM LEVEL 1.8 MG/DL (1.8-2.4); POTASSIUM SERUM 3.5 MMOL/L (3.5-5.1)
[2024-06-03] MEDS: PANTOPRAZOLE 40MG TAB (PROTONIX) PO SCH (09:07)
[2024-06-03] MEDS ORDERED: LOPE2CA PO (11:10)
[2024-06-03] MEDS ORDERED: XARE15TA PO (11:10)
[2024-06-03] MEDS ORDERED: LACT1CAP53 PO (11:51)
[2024-06-03] MEDS: POTASSIUM CHLORIDE 10MEQ SR TABLET PO ONE (13:06)
[2024-06-03] MEDS ORDERED: NORV5TAB PO (14:52)
[2024-06-03] MEDS ORDERED: XARE20TA PO (14:56)
== END 2024-06-03 15:02 | DRG 917 ==
LOC: EDBD 12:06 → M ED 12:06 → M ED INP 15:17 → M ICU 16:54
PROVIDERS: ADMIT Internal Medicine Critical Care Medicine; ATTEND Internal Medicine
DX: T39.312A Poisoning by propionic acid derivatives, intentional self-harm, initial encounter (principal); G92.8 Other toxic encephalopathy; R57.8 Other shock; N17.9 Acute kidney failure, unspecified; E87.20 Acidosis, unspecified; T14.91XA Suicide attempt, initial encounter; F25.1 Schizoaffective disorder, depressive type; I10 Essential (primary) hypertension; E11.9 Type 2 diabetes mellitus without complications; E03.9 Hypothyroidism, unspecified; M48.00 Spinal stenosis, site unspecified; Z87.891 Personal history of nicotine dependence; Z86.718 Personal history of other venous thrombosis and embolism; Z79.890 Hormone replacement therapy; Z79.899 Other long term (current) drug therapy; Z88.0 Allergy status to penicillin; Z88.2 Allergy status to sulfonamides; Z88.8 Allergy status to other drugs, medicaments and biological substances

== ENCOUNTER 2024-06-03 11:33 | Inpatient (IN) | payer OTHER, MEDICAID ==
[~2024-06-03] VITALS: Ht 165.1 cm; Wt 89.9 kg
[~2024-06-03 11:33] MED LIST changes: +CEFD1CAP9 PO; +METH85CR6 TOP; -MUSCCRE9 TOP; +PREG100CA PO; +XARE15TA PO; +ZOLO25TA PO
[2024-06-03] MEDS ORDERED: traZODone 50 MG TAB PO PRN (11:45)
[2024-06-03] MEDS ORDERED: MOM 30ML SUSPENSION UDC PO PRN (11:45)
[2024-06-03] MEDS ORDERED: MAALOX 30 ML SUSP *UDC PO PRN (11:45)
[2024-06-03] MEDS ORDERED: LACT1CAP53 PO (11:51)
[2024-06-03] MEDS ORDERED: NORV5TAB PO (14:52)
[2024-06-03] MEDS ORDERED: XARE20TA PO (14:56)
[2024-06-03 16:31] VITALS: BP 135/70; TEMP 99; O2SAT 97
[2024-06-03] MEDS: traZODone 50 MG TAB PO PRN (20:05)
[2024-06-03] MEDS: tiZANidine 4 MG TAB PO SCH (20:05)
[2024-06-03] MEDS: GABAPENTIN 100 MG CAP PO SCH (20:05)
[2024-06-03] MEDS: IBUPROFEN 400MG TAB PO PRN (20:05)
[2024-06-03] MEDS: PREGABALIN 100 MG CAP (LYRICA) PO SCH (20:05)
[2024-06-03] MEDS: ISOSORBIDE DIN. (ISORDIL) 20 MG TAB PO SCH (20:07)
[2024-06-04] MEDS: LEVOTHYROXINE 25MCG TABLET (0.025MG) PO SCH (05:45)
[2024-06-04 06:53] VITALS: BP 149/80; TEMP 98.2; O2SAT 94
[2024-06-04] MEDS: PANTOPRAZOLE 40MG TAB (PROTONIX) PO SCH (10:37)
[2024-06-04] MEDS: SERTRALINE HCL 25 MG TABLET PO SCH (10:37)
[2024-06-04] MEDS: SERTRALINE 100 MG TAB PO SCH (10:37)
[2024-06-04] MEDS: amLODIPine 5 MG TAB PO SCH (10:38)
[2024-06-04 18:13] VITALS: BP 160/80; TEMP 98.6; O2SAT 100
[2024-06-05] MEDS: ACETAMINOPHEN TAB 650MG DOSE (2X325MG) PO PRN (05:10)
[2024-06-05 06:12] VITALS: BP 149/73; TEMP 97.7; O2SAT 99
[2024-06-05] MEDS: LOPERAMIDE 2 MG CAPLET PO PRN (08:35)
[2024-06-05 15:19] VITALS: BP 133/63; TEMP 99.1; O2SAT 97
[2024-06-05 21:33] VITALS: BP 143/83; TEMP 99.1; O2SAT 97
[2024-06-06 06:26] VITALS: BP 150/88; TEMP 97; O2SAT 97
[2024-06-06 15:57] VITALS: BP 130/60; TEMP 97.9; O2SAT 100
[2024-06-06 16:08] VITALS: BP 164/94; TEMP 97.7; O2SAT 99
[2024-06-07 06:23] VITALS: BP 150/80; TEMP 97.7; O2SAT 100
[2024-06-07 15:49] VITALS: BP 156/80; TEMP 98.8; O2SAT 100
[2024-06-07] MEDS: diphenhydrAMINE 25MG CAP PO PRN (21:49)
[2024-06-08 06:22] VITALS: BP 160/86; TEMP 97.6; O2SAT 96
[2024-06-08] MEDS: diphenhydrAMINE 50MG CAP PO ONE (11:26)
[2024-06-08 18:27] VITALS: BP 132/78; TEMP 98.7; O2SAT 98
[2024-06-09 06:06] VITALS: BP 155/70; TEMP 97.9; O2SAT 99
[2024-06-09 15:43] VITALS: BP 152/88; TEMP 98.3; O2SAT 100
[2024-06-10 06:18] VITALS: BP 172/92; TEMP 97.7; O2SAT 95
[2024-06-10 17:07] VITALS: BP 148/81; TEMP 97.5; O2SAT 98
[2024-06-11 06:16] VITALS: BP 150/70; TEMP 97.8; O2SAT 96
[2024-06-11 17:06] VITALS: BP 145/68; TEMP 98.2; O2SAT 99
[2024-06-12 06:11] VITALS: BP 150/70; TEMP 98.2; O2SAT 96
[2024-06-12 16:38] VITALS: BP 155/78; TEMP 97.9; O2SAT 99
[2024-06-12 21:13] VITALS: BP 152/96
[2024-06-13 06:27] VITALS: BP 148/67; TEMP 97.8; O2SAT 98
[2024-06-13 18:50] VITALS: BP 160/100; TEMP 98.5
[2024-06-13 20:10] VITALS: BP 162/88
[2024-06-14 06:24] VITALS: BP 170/80; TEMP 97.6; O2SAT 100
[2024-06-14 07:44] VITALS: BP 176/94; TEMP 98.2; O2SAT 98
[2024-06-14 17:42] VITALS: BP 147/68; TEMP 98.5; O2SAT 100
[2024-06-15 06:31] VITALS: BP 146/88; TEMP 97.9; O2SAT 96
[2024-06-15 15:58] VITALS: BP 108/58; TEMP 98.1; O2SAT 99
[2024-06-16 06:36] VITALS: BP 130/84; TEMP 97.7; O2SAT 99
[2024-06-16 16:06] VITALS: BP 142/66; TEMP 98.9; O2SAT 100
[2024-06-17 06:26] VITALS: BP 151/67; TEMP 97.4; O2SAT 100
[2024-06-17 15:59] VITALS: BP 129/67; TEMP 98.6; O2SAT 99
[2024-06-18 17:00] VITALS: BP 166/78; TEMP 98.1; O2SAT 99
[2024-06-19 16:31] VITALS: BP 122/58; TEMP 98.1; O2SAT 100
[2024-06-19 20:11] VITALS: BP 151/84
[2024-06-20 06:14] VITALS: BP 146/78; TEMP 97.6; O2SAT 96
[2024-06-20 15:31] VITALS: BP 130/60; TEMP 98.4; O2SAT 97
[2024-06-21 16:26] VITALS: BP 110/68; TEMP 97.7; O2SAT 95
[2024-06-22 15:25] VITALS: BP 139/67; TEMP 97.4; O2SAT 97
[2024-06-23 06:15] VITALS: BP 146/67; TEMP 98; O2SAT 97
[2024-06-23 15:20] VITALS: BP 165/100; TEMP 96.4; O2SAT 99
[2024-06-23 20:15] VITALS: BP 182/96
[2024-06-23 21:43] VITALS: BP 132/60
[2024-06-24 06:11] VITALS: BP 156/76; TEMP 97.2; O2SAT 98
[2024-06-24 16:34] VITALS: BP 138/90; TEMP 97.9; O2SAT 99
[2024-06-24 19:53] VITALS: BP 162/86
[2024-06-25 17:13] VITALS: BP 152/90; TEMP 98.6; O2SAT 100
[2024-06-26] MEDS ORDERED: TRAZ1TAB14 PO (05:54)
[2024-06-26] MEDS ORDERED: LOPE2CA PO (05:54)
[2024-06-26] MEDS ORDERED: TIZA10TA PO (05:54)
[2024-06-26] MEDS ORDERED: SYNT25TA PO (05:54)
[2024-06-26] MEDS ORDERED: ZOLO100T PO (05:54)
[2024-06-26] MEDS ORDERED: HALO10TA2 PO (05:54)
[2024-06-26] MEDS ORDERED: GABA-1171 PO (05:54)
[2024-06-26] MEDS ORDERED: ZOLO25TA PO (05:54)
[2024-06-26] MEDS ORDERED: LACT1CAP53 PO (05:54)
[2024-06-26] MEDS ORDERED: PANT40TA29 PO (05:54)
[2024-06-26] MEDS ORDERED: ISOS20TA4 PO (05:54)
[2024-06-26] MEDS ORDERED: PREG100CA PO (05:54)
[2024-06-26 06:27] VITALS: BP 140/67; TEMP 98.1; O2SAT 97
[2024-06-26 09:40] VITALS: BP 138/75
== END 2024-06-26 11:35 | disposition home or self-care (01) | DRG 885 ==
LOC: M PSY 15:07
PROVIDERS: ADMIT Psychiatry & Neurology Child & Adolescent Psychiatry; ATTEND Psychiatry & Neurology Child & Adolescent Psychiatry
DX: F25.1 Schizoaffective disorder, depressive type (principal); N17.9 Acute kidney failure, unspecified; F43.0 Acute stress reaction; Z88.2 Allergy status to sulfonamides; Z88.8 Allergy status to other drugs, medicaments and biological substances; Z88.0 Allergy status to penicillin; Z79.899 Other long term (current) drug therapy; I10 Essential (primary) hypertension; Z79.01 Long term (current) use of anticoagulants; Z86.718 Personal history of other venous thrombosis and embolism; E11.9 Type 2 diabetes mellitus without complications; E03.9 Hypothyroidism, unspecified; G89.29 Other chronic pain; R56.9 Unspecified convulsions; K21.9 Gastro-esophageal reflux disease without esophagitis; R19.7 Diarrhea, unspecified; M51.36 Other intervertebral disc degeneration, lumbar region

== ENCOUNTER → 2024-07-22 | Outpatient (CLI) | payer OTHER, MEDICAID ==
[~2024-07-22] MED LIST changes: +LACT1CAP53 PO; +NORV5TAB PO
[2024-07-22 14:26] LABS: HEMATOCRIT 35.6 % (36.0-47.0); HEMOGLOBIN 11.5 g/dl (12.0-15.5); MEAN CORPUSCULAR HEMOGLOBIN 29.1 pg (27.0-33.0); MEAN CORPUSCULAR HGB CONC 32.3 g/dl (32.0-36.5); MEAN CORPUSCULAR VOLUME 90.1 fl (80.0-96.0); PLATELET COUNT, AUTOMATED 212 10^3/uL (150-450); RED BLOOD COUNT 3.95 10^6/uL (4.00-5.40); WHITE BLOOD COUNT 8.9 10^3/uL (4.0-10.0)
[2024-07-22 15:00] LABS: ALBUMIN 3.5 G/DL (3.2-5.2); BILIRUBIN,TOTAL 0.3 MG/DL (0.3-1.2); CALCIUM LEVEL 9.3 MG/DL (8.3-10.6); CHOLESTEROL RISK RATIO 3.51 (<5); CREATININE FOR GFR 1.29 MG/DL (0.55-1.30); FREE T4 1.26 NG/DL (0.89-1.76); GLOMERULAR FILTRATION RATE 44.4 (>45); HDL CHOLESTEROL 59.1 MG/DL (>40); LDL CHOLESTEROL 116.9 MG/DL (<100); NON-HDL-C 148.9 MG/DL; POTASSIUM SERUM 4.7 MMOL/L (3.5-5.1); THYROID STIMULATING HORMONE 1.023 uIU/ML (0.55-4.78); TOTAL 25(OH) VITAMIN D 17.1 NG/ML (20.0-100.0); TOTAL PROTEIN 6.7 G/DL (5.7-8.2)
== END ==
LOC: M RAD 13:27
PROVIDERS: ATTEND Nurse Practitioner Adult Health
DX: M50.30 Other cervical disc degeneration, unspecified cervical region (principal); I10 Essential (primary) hypertension; E03.9 Hypothyroidism, unspecified; E78.5 Hyperlipidemia, unspecified; E55.9 Vitamin D deficiency, unspecified; Z79.899 Other long term (current) drug therapy

== ENCOUNTER 2024-08-21 10:42 | Observation (INO) | payer OTHER, MEDICAID ==
[~2024-08-21] VITALS: Ht 165.1 cm; Wt 92.8 kg
[2024-08-21] MEDS ORDERED: ISOVUE-370 76% 100ML VIAL As Ordered ONE (11:06)
[2024-08-21 11:17] LABS: BASO % 0.4 % (0.0-1.0); HEMATOCRIT 34.5 % (36.0-47.0); HEMOGLOBIN 11.4 g/dl (12.0-15.5); LYMPH % 18.4 % (24.0-44.0); MEAN CORPUSCULAR VOLUME 87.8 fl (80.0-96.0); MONO # 0.4 10^3/uL (0.0-0.8); MONO % 7.3 % (2.0-8.0); NEUTROPHILS # 4.1 10^3/uL (1.5-8.5); NEUTROPHILS % 73.7 % (36.0-66.0); PLATELET COUNT, AUTOMATED 215 10^3/uL (150-450); RED BLOOD COUNT 3.93 10^6/uL (4.00-5.40); WHITE BLOOD COUNT 5.6 10^3/uL (4.0-10.0)
[2024-08-21] MEDS: NS 1,000 ML IV ONE (11:26)
[2024-08-21 11:36] LABS: INR 1.04; PARTIAL THROMBOPLASTIN TIME 28.7 SECONDS (24.8-34.2); PROTHROMBIN TIME 13.3 SECONDS (12.5-14.5)
[2024-08-21 11:45] LABS: CK-MB VALUE MASS 2.1 NG/ML (<3.6)
[2024-08-21 11:47] LABS: ETHYL ALCOHOL (ETHANOL) < 0.003 % (0.000-0.010)
[2024-08-21 11:48] LABS: CPK CREATINE PHOSPHOKINASE 63 U/L (34-145); MB/CK RELATIVE INDEX 3.33 (< OR =4)
[2024-08-21 11:49] LABS: ALKALINE PHOSPHATASE 77 U/L (46-116); ALT/SGPT 10 U/L (7.0-40); AST/SGOT < 8 U/L (<34); BILIRUBIN,DIRECT < 0.1 MG/DL (<0.4); BILIRUBIN,TOTAL 0.3 MG/DL (0.3-1.2); BLOOD UREA NITROGEN 19 MG/DL (9-23); CALCIUM LEVEL 9.3 MG/DL (8.3-10.6); CARBON DIOXIDE LEVEL 26 MMOL/L (20-31); CHLORIDE LEVEL 110 MMOL/L (98-107); CREATININE FOR GFR 1.18 MG/DL (0.55-1.30); GLOMERULAR FILTRATION RATE 49.2 (>45); GLUCOSE, FASTING 110 MG/DL (74-106); POTASSIUM SERUM 3.1 MMOL/L (3.5-5.1); SODIUM LEVEL 141 MMOL/L (136-145); TOTAL PROTEIN 5.9 G/DL (5.7-8.2)
[2024-08-21 11:50] LABS: FREE T4 1.48 NG/DL (0.89-1.76)
[2024-08-21 11:51] LABS: THYROID STIMULATING HORMONE 0.906 uIU/ML (0.55-4.78)
[2024-08-21] MEDS: POTASSIUM CHLORIDE 10MEQ SR TABLET PO ONE (13:08)
[2024-08-21] MEDS ORDERED: HALO10TA20 PO (13:44)
[2024-08-21] MEDS ORDERED: LACT1CAP53 PO (13:47)
[2024-08-21] MEDS ORDERED: XARE20TA PO (13:50)
[2024-08-21] MEDS ORDERED: HOME MED LIST COMPLETE! XX SCH (14:00)
[2024-08-21 14:10] LABS: AMPHETAMINES LEVEL URINE NEGATIVE (NEGATIVE); BARBITURATES URINE NEGATIVE (NEGATIVE); BENZODIAZEPINES URINE NEGATIVE (NEGATIVE); CANNABINOIDS URINE NEGATIVE (NEGATIVE); COCAINE METABOLITE URINE NEGATIVE (NEGATIVE); METHADONE URINE NEGATIVE (NEGATIVE); OPIATES URINE NEGATIVE (NEGATIVE); PHENCYCLIDINE URINE NEGATIVE (NEGATIVE)
[2024-08-21 16:21] LABS: INR 1.07; PROTHROMBIN TIME 13.6 SECONDS (12.5-14.5)
[2024-08-21] MEDS: cefTRIAXone SOD 1 GM in DEXTROSE 5% (D5W) MINI-BAG/ADV 50 ML IV ONE (16:41)
[2024-08-21 17:03] VITALS: BP 165/87; TEMP 97.5; O2SAT 99
[2024-08-21] MEDS: LACTOBACILLUS ACIDOPHILUS CAP (BACID) PO SCH (18:59)
[2024-08-21] MEDS: ACETAMINOPHEN 325 MG TAB PO PRN (18:59)
[2024-08-21 20:00] VITALS: BP 165/78; TEMP 97.5; O2SAT 95
[2024-08-22 01:45] VITALS: BP 162/84; TEMP 97.5; O2SAT 96
[2024-08-22 04:00] VITALS: BP 164/80; TEMP 97.3; O2SAT 96
[2024-08-22] MEDS: LEVOTHYROXINE 25MCG TABLET (0.025MG) PO SCH (05:33)
[2024-08-22 05:47] LABS: HEMATOCRIT 36.9 % (36.0-47.0); HEMOGLOBIN 11.9 g/dl (12.0-15.5); MEAN CORPUSCULAR HEMOGLOBIN 28.4 pg (27.0-33.0); MEAN CORPUSCULAR HGB CONC 32.2 g/dl (32.0-36.5); MEAN CORPUSCULAR VOLUME 88.1 fl (80.0-96.0); PLATELET COUNT, AUTOMATED 206 10^3/uL (150-450); RED BLOOD COUNT 4.19 10^6/uL (4.00-5.40); WHITE BLOOD COUNT 6.5 10^3/uL (4.0-10.0)
[2024-08-22 06:19] LABS: ALKALINE PHOSPHATASE 80 U/L (46-116); ALT/SGPT < 9 U/L (7.0-40); AST/SGOT < 8 U/L (<34); BILIRUBIN,TOTAL 0.2 MG/DL (0.3-1.2); BLOOD UREA NITROGEN 24 MG/DL (9-23); CALCIUM LEVEL 9.3 MG/DL (8.3-10.6); CARBON DIOXIDE LEVEL 26 MMOL/L (20-31); CHLORIDE LEVEL 111 MMOL/L (98-107); CREATININE FOR GFR 0.89 MG/DL (0.55-1.30); GLOMERULAR FILTRATION RATE > 60.0 (>45); GLUCOSE, FASTING 95 MG/DL (74-106); POTASSIUM SERUM 3.6 MMOL/L (3.5-5.1); SODIUM LEVEL 141 MMOL/L (136-145)
[2024-08-22] MEDS: **hydrALAZINE HCL** 25 MG TAB PO STA (06:34)
[2024-08-22] MEDS: ENOXAPARIN 40MG/0.4ML SYRINGE (J1650 PER 10MG) SC SCH (08:43)
[2024-08-22] MEDS: tiZANidine 4 MG TAB PO SCH (08:43)
[2024-08-22] MEDS: GABAPENTIN 100 MG CAP PO SCH (08:43)
[2024-08-22 09:29] VITALS: BP 186/88
[2024-08-22] MEDS: ISOSORBIDE DIN. (ISORDIL) 20 MG TAB PO SCH (09:29)
[2024-08-22 10:09] VITALS: BP 113/65
[2024-08-22] MEDS ORDERED: PREG100CA PO (10:14)
[2024-08-22] MEDS ORDERED: CEFD1CAP9 PO (10:36)
[2024-08-22] MEDS ORDERED: ISOS20TA4 PO (10:36)
[2024-08-22] MEDS: cefTRIAXone SOD 1 GM in DEXTROSE 5% (D5W) MINI-BAG/ADV 50 ML IV SCH (16:19)
== END 2024-08-22 17:59 | disposition home or self-care (01) ==
LOC: M ED 10:42 → EDBD 10:42 → M ED INP 14:38 → M MSPAV 17:06
PROVIDERS: ADMIT Internal Medicine; ATTEND Internal Medicine
DX: R00.1 Bradycardia, unspecified (principal); N39.0 Urinary tract infection, site not specified; G92.8 Other toxic encephalopathy; T50.991A Poisoning by other drugs, medicaments and biological substances, accidental (unintentional), initial encounter; E87.6 Hypokalemia; R53.1 Weakness; M25.551 Pain in right hip; F25.1 Schizoaffective disorder, depressive type; F30.9 Manic episode, unspecified; F29 Unspecified psychosis not due to a substance or known physiological condition; R41.9 Unspecified symptoms and signs involving cognitive functions and awareness; E11.9 Type 2 diabetes mellitus without complications; Z86.718 Personal history of other venous thrombosis and embolism; E03.9 Hypothyroidism, unspecified; G47.30 Sleep apnea, unspecified; Z79.899 Other long term (current) drug therapy; Z88.0 Allergy status to penicillin; Z88.2 Allergy status to sulfonamides; Z88.8 Allergy status to other drugs, medicaments and biological substances
CPT/HCPCS: 36415; 51701; 70450; 70496; 70498; 70551; 71045; 73502; 80047; 80048; 80053; 80076; 80307; 81001; 82077; 82140; 82550; 82553; 83605; 84439; 84443; 84484; 85025; 85027; 85610; 85730; 87040; 87077; 87088; 87186; 93005; 93041; 94760; 96365; 96366; 96372; 96375; 97161; 99285; G0378; J0696; J1650; Q9967

== ENCOUNTER 2024-08-24 15:56 | Emergency (ER) | payer OTHER, MEDICAID ==
[~2024-08-24] VITALS: Ht 162.6 cm; Wt 91.9 kg
[2024-08-24 20:37] LABS: BASO % 0.5 % (0.0-1.0); HEMATOCRIT 35.3 % (36.0-47.0); HEMOGLOBIN 11.9 g/dl (12.0-15.5); LYMPH # 1.8 10^3/uL (1.5-5.0); LYMPH % 32.8 % (24.0-44.0); MEAN CORPUSCULAR HGB CONC 33.7 g/dl (32.0-36.5); MEAN CORPUSCULAR VOLUME 86.1 fl (80.0-96.0); MONO # 0.5 10^3/uL (0.0-0.8); MONO % 9.1 % (2.0-8.0); NEUTROPHILS # 3.2 10^3/uL (1.5-8.5); NEUTROPHILS % 57.2 % (36.0-66.0); PLATELET COUNT, AUTOMATED 201 10^3/uL (150-450); WHITE BLOOD COUNT 5.6 10^3/uL (4.0-10.0)
[2024-08-24 21:04] LABS: BLOOD UREA NITROGEN 18 MG/DL (9-23); CALCIUM LEVEL 9.4 MG/DL (8.3-10.6); CARBON DIOXIDE LEVEL 26 MMOL/L (20-31); CHLORIDE LEVEL 110 MMOL/L (98-107); CREATININE FOR GFR 0.93 MG/DL (0.55-1.30); GLOMERULAR FILTRATION RATE > 60.0 (>45); GLUCOSE, FASTING 83 MG/DL (74-106); POTASSIUM SERUM 3.5 MMOL/L (3.5-5.1); SODIUM LEVEL 140 MMOL/L (136-145)
[2024-08-24] MEDS ORDERED: LISI20TA33 PO (22:34)
[2024-08-24 22:38] VITALS: BP 220/102
[2024-08-24 23:04] VITALS: TEMP 98.4
[2024-08-24 23:39] VITALS: BP 210/115; O2SAT 96
== END 2024-08-24 23:43 | disposition home or self-care (01) ==
LOC: M ED 15:56
DX: N39.0 Urinary tract infection, site not specified (principal); E11.9 Type 2 diabetes mellitus without complications; I10 Essential (primary) hypertension; I25.2 Old myocardial infarction; F32.A Depression, unspecified; F20.9 Schizophrenia, unspecified; K58.9 Irritable bowel syndrome, unspecified; Z88.0 Allergy status to penicillin; Z88.1 Allergy status to other antibiotic agents; Z88.2 Allergy status to sulfonamides; Z88.8 Allergy status to other drugs, medicaments and biological substances; Z79.2 Long term (current) use of antibiotics; Z79.811 Long term (current) use of aromatase inhibitors; Z79.899 Other long term (current) drug therapy

== ENCOUNTER → 2024-11-14 | Outpatient (CLI) | payer OTHER, MEDICAID ==
[~2024-11-14] MED LIST changes: -CYCL5TAB PO; +CYCL5TAB4 PO; -LIDO1CRE2 TOP; +LIDO4CRE12 TOP; +TRAZ-189 PO
== END ==
LOC: M RAD 12:46
PROVIDERS: ATTEND Nurse Practitioner Family
DX: M48.062 Spinal stenosis, lumbar region with neurogenic claudication (principal); Z98.1 Arthrodesis status

== ENCOUNTER 2024-12-03 15:20 | Inpatient (IN) | payer OTHER, MEDICAID ==
[~2024-12-03] VITALS: Ht 162.6 cm; Wt 89.9 kg
[2024-12-03 16:17] LABS: HEMATOCRIT 38.8 % (36.0-47.0); HEMOGLOBIN 12.9 g/dl (12.0-15.5); MEAN CORPUSCULAR HGB CONC 33.2 g/dl (32.0-36.5); MEAN CORPUSCULAR VOLUME 87.2 fl (80.0-96.0); PLATELET COUNT, AUTOMATED 226 10^3/uL (150-450); RED BLOOD COUNT 4.45 10^6/uL (4.00-5.40); WHITE BLOOD COUNT 6.4 10^3/uL (4.0-10.0)
[2024-12-03 16:49] LABS: ETHYL ALCOHOL (ETHANOL) 0.003 % (0.000-0.010)
[2024-12-03 16:50] LABS: ALBUMIN 3.5 G/DL (3.2-5.2); ALKALINE PHOSPHATASE 73 U/L (35-104); ALT/SGPT 11 U/L (7.0-40); AST/SGOT 8 U/L (<34); BILIRUBIN,DIRECT < 0.1 MG/DL (<0.4); BILIRUBIN,TOTAL 0.3 MG/DL (0.3-1.2); BLOOD UREA NITROGEN 32 MG/DL (9-23); CALCIUM LEVEL 9.4 MG/DL (8.3-10.6); CARBON DIOXIDE LEVEL 29 MMOL/L (20-31); CHLORIDE LEVEL 103 MMOL/L (98-107); CREATININE FOR GFR 0.89 MG/DL (0.55-1.30); GLOMERULAR FILTRATION RATE > 60.0 (>45); GLUCOSE, FASTING 92 MG/DL (74-106); POTASSIUM SERUM 4.2 MMOL/L (3.5-5.1); SALICYLATE LEVEL < 3.0 MG/DL (<30); SODIUM LEVEL 142 MMOL/L (136-145); TOTAL PROTEIN 6.9 G/DL (5.7-8.2)
[2024-12-03 16:53] LABS: THYROID STIMULATING HORMONE 0.988 uIU/ML (0.55-4.78)
[2024-12-03] MEDS ORDERED: SERT50TA29 PO (17:40)
[2024-12-03] MEDS ORDERED: ISOS20TA4 PO (17:40)
[2024-12-03] MEDS ORDERED: HOME MED LIST COMPLETE! XX SCH (17:45)
[2024-12-03 17:51] LABS: AMPHETAMINES LEVEL URINE NEGATIVE (NEGATIVE); BARBITURATES URINE NEGATIVE (NEGATIVE); BENZODIAZEPINES URINE NEGATIVE (NEGATIVE); CANNABINOIDS URINE NEGATIVE (NEGATIVE); COCAINE METABOLITE URINE NEGATIVE (NEGATIVE); METHADONE URINE NEGATIVE (NEGATIVE); OPIATES URINE NEGATIVE (NEGATIVE); PHENCYCLIDINE URINE NEGATIVE (NEGATIVE)
[2024-12-03] MEDS ORDERED: traZODone 50 MG TAB PO PRN (19:10)
[2024-12-03] MEDS ORDERED: OLANZapine ORAL DISINTEGRATING TAB 5MG PO PRN (19:10)
[2024-12-03] MEDS ORDERED: MAALOX 30 ML SUSP *UDC PO PRN (19:10)
[2024-12-03] MEDS ORDERED: MOM 30ML SUSPENSION UDC PO PRN (19:10)
[2024-12-03] MEDS ORDERED: diphenhydrAMINE 25MG CAP PO PRN (19:10)
[2024-12-03] MEDS ORDERED: traZODone 50 MG TAB PO SCH (21:00)
[2024-12-03] MEDS ORDERED: GABAPENTIN 100 MG CAP PO SCH (21:00)
[2024-12-03] MEDS ORDERED: PREGABALIN 100 MG CAP (LYRICA) PO SCH (21:00)
[2024-12-03] MEDS ORDERED: tiZANidine 4 MG TAB PO SCH (21:00)
[2024-12-03] MEDS ORDERED: ISOSORBIDE DIN (ISORDIL) 10MG TAB PO SCH (21:00)
[2024-12-03] MEDS ORDERED: busPIRone 10 MG TAB PO SCH (21:00)
[2024-12-03 21:15] VITALS: BP 164/88; TEMP 98; O2SAT 97
[2024-12-03] MEDS: ACETAMINOPHEN 325 MG TAB PO PRN (21:57)
[2024-12-03] MEDS: LORazepam 1 MG TAB PO PRN (21:58)
[2024-12-03] MEDS: traZODone 50 MG TAB PO SCH (22:40)
[2024-12-04] MEDS ORDERED: LEVOTHYROXINE 25MCG TABLET (0.025MG) PO SCH (06:00)
[2024-12-04] MEDS: LEVOTHYROXINE 25MCG TABLET (0.025MG) PO SCH (06:27)
[2024-12-04 06:39] VITALS: BP 121/92; TEMP 97; O2SAT 99
[2024-12-04] MEDS ORDERED: SERTRALINE HCL 50 MG TAB PO SCH (09:00)
[2024-12-04] MEDS: NICOTINE 14 MG/24 HR TRANSDERMAL TD SCH (09:00)
[2024-12-04] MEDS ORDERED: SERTRALINE 100 MG TAB PO SCH ×2 (09:00)
[2024-12-04] MEDS ORDERED: tiZANidine 4 MG TAB PO PRN (09:35)
[2024-12-04] MEDS: GABAPENTIN 100 MG CAP PO SCH (10:50)
[2024-12-04] MEDS: busPIRone 10 MG TAB PO SCH (10:50)
[2024-12-04] MEDS: ISOSORBIDE DIN. (ISORDIL) 20 MG TAB PO SCH (10:51)
[2024-12-04] MEDS: IBUPROFEN 400MG TAB PO PRN (10:55)
[2024-12-04] MEDS: SERTRALINE HCL 25 MG TABLET PO SCH (11:50)
[2024-12-04] MEDS: SERTRALINE 100 MG TAB PO SCH (11:50)
[2024-12-04 16:00] VITALS: BP 138/63; TEMP 98.6; O2SAT 98
[2024-12-04 16:06] VITALS: BP 141/66; TEMP 98.6; O2SAT 97
[2024-12-05 06:20] VITALS: BP 160/80; TEMP 97.5; O2SAT 98
[2024-12-05 07:38] LABS: CHOLESTEROL RISK RATIO 3.93 (<5); HDL CHOLESTEROL 60.7 MG/DL (>40); LDL CHOLESTEROL 156.7 MG/DL (<100); NON-HDL-C 178.3 MG/DL
[2024-12-05] MEDS ORDERED: SERTRALINE 100 MG TAB PO SCH (09:00)
[2024-12-05 15:24] VITALS: BP 142/88; TEMP 98.3; O2SAT 95
[2024-12-06 06:42] VITALS: BP 166/88; TEMP 97.9; O2SAT 98
[2024-12-06 15:24] VITALS: BP 128/75; TEMP 98.8; O2SAT 97
[2024-12-07 06:44] VITALS: BP 160/87; TEMP 98.8; O2SAT 98
[2024-12-07 08:14] VITALS: BP 138/78
[2024-12-07 08:18] VITALS: BP 138/78
== END 2024-12-07 15:45 | disposition home or self-care (01) | DRG 885 ==
LOC: EDBD 15:20 → M ED 15:20 → M ED INP 19:07 → M PSY 20:36
PROVIDERS: ADMIT Psychiatry & Neurology Neurology; ATTEND Psychiatry & Neurology Neurology
DX: F25.1 Schizoaffective disorder, depressive type (principal); R45.851 Suicidal ideations; F43.9 Reaction to severe stress, unspecified; Z88.0 Allergy status to penicillin; Z88.8 Allergy status to other drugs, medicaments and biological substances; Z88.2 Allergy status to sulfonamides; Z79.899 Other long term (current) drug therapy; I10 Essential (primary) hypertension; E11.9 Type 2 diabetes mellitus without complications; E03.9 Hypothyroidism, unspecified; G89.29 Other chronic pain; R56.9 Unspecified convulsions

== ENCOUNTER → 2025-01-08 | Outpatient (CLI) | payer OTHER, MEDICAID ==
[~2025-01-08] MED LIST changes: +SERT50TA29 PO
[2025-01-08 11:33] LABS: BASO % 0.6 % (0.0-1.0); HEMATOCRIT 39.3 % (36.0-47.0); HEMOGLOBIN 12.9 g/dl (12.0-15.5); LYMPH # 1.2 10^3/uL (1.5-5.0); LYMPH % 23.2 % (24.0-44.0); MEAN CORPUSCULAR HEMOGLOBIN 29.1 pg (27.0-33.0); MEAN CORPUSCULAR HGB CONC 32.8 g/dl (32.0-36.5); MEAN CORPUSCULAR VOLUME 88.7 fl (80.0-96.0); MONO # 0.4 10^3/uL (0.0-0.8); MONO % 6.5 % (2.0-8.0); NEUTROPHILS # 3.7 10^3/uL (1.5-8.5); NEUTROPHILS % 69.5 % (36.0-66.0); PLATELET COUNT, AUTOMATED 220 10^3/uL (150-450); RED BLOOD COUNT 4.43 10^6/uL (4.00-5.40); WHITE BLOOD COUNT 5.4 10^3/uL (4.0-10.0)
[2025-01-08 11:47] LABS: INR 0.92; PARTIAL THROMBOPLASTIN TIME 29.5 SECONDS (24.8-34.2); PROTHROMBIN TIME 12.6 SECONDS (12.5-14.5)
[2025-01-08 12:07] LABS: ALBUMIN 3.2 G/DL (3.2-5.2); ALKALINE PHOSPHATASE 76 U/L (35-104); ALT/SGPT 16 U/L (7.0-40); AST/SGOT 14 U/L (<34); BILIRUBIN,TOTAL 0.3 MG/DL (0.3-1.2); BLOOD UREA NITROGEN 17 MG/DL (9-23); CALCIUM LEVEL 8.8 MG/DL (8.3-10.6); CARBON DIOXIDE LEVEL 27 MMOL/L (20-31); CHLORIDE LEVEL 108 MMOL/L (98-107); CREATININE FOR GFR 0.95 MG/DL (0.55-1.30); GLOMERULAR FILTRATION RATE > 60.0 (>45); GLUCOSE, FASTING 118 MG/DL (74-106); SODIUM LEVEL 142 MMOL/L (136-145); TOTAL PROTEIN 6.5 G/DL (5.7-8.2)
== END ==
LOC: M RAD 10:20
DX: Z01.811 Encounter for preprocedural respiratory examination (principal); Z01.810 Encounter for preprocedural cardiovascular examination; Z01.812 Encounter for preprocedural laboratory examination

== ENCOUNTER 2025-07-01 14:00 | Outpatient (RCR) | payer OTHER, MEDICAID ==
[~2025-07-01 14:00] MED LIST changes: -AMBI10TA PO; +DEPA250T PO; -DEPA250T2 PO; +MAG30ORA18 FT; -MYLASSUD FT; -PRAV40TA2 PO; +PRAV40TA85 PO; +PREG-35 PO; -PREG100CA PO; +ZOLP-533 PO
== END 2025-07-04 ==
LOC: M PT 14:00
PROVIDERS: ATTEND Physician Assistant
DX: M43.26 Fusion of spine, lumbar region (principal)